=== PATIENT | male | born 1950 | race Caucasian/White ===

== ENCOUNTER 2018-06-27 07:52 | Inpatient (IN) | payer OTHER, SELFPAY ==
[2018-06-27] VITALS (50 sets, daily range): BP systolic 73–167; BP diastolic 34–145; PULSE 78–162; RESP 12–28; TEMP 36–37; O2SAT 88–100; BMI 25.9; BMI 24.3; BMI 24.4
--- NOTE | 2018-06-27 08:05 | ED.RN ---
pt with severe tremors to body and extremities states has been since fall. pt states he blacked out and fell, +LOC. severe pain to ble with bending movment but not roatation. denies any other pain. alert and oriented aprrpriated.
--- NOTE | 2018-06-27 08:12 | ED.VISSUMM ---
- ER Visit Summary Date of Service: 06/27/18 Chief Complaint: I passed out. History of Present Illness: The patient is a 68 M with multiple significant past medical problems presents after syncopal episode. He was walking from the restroom and passed out. He reports no prodrome. He presently complains of chills, shortness of breath, black stool and weakness. Nursing staff informed me that he complains of pain all over. EMS documented a systolic pressure of 100 and pulse ox on room air 82%. EMS report not available at the time of this dictation. Patient denies headache, visual, ocular auditory symptoms. He denies any chest pain or shortness of breath. He denies abdominal pain. He denies any urologic symptoms. He denies any numbness or tingling in his extremities. He denies headache. For review of old records he is on no anticoagulant. There is a past history coronary disease, COPD, GERD, type 2 diabetes, hypertension, hypercholesterolemia and nonrheumatic valvular heart disease. Physical Examination: Patient has chills or tremors. Head is atraumatic normocephalic. There is no clinical findings of basal skull fracture. Pupils equal round reactive. Extra muscle intact. Sclera is anicteric. Conjunctive is pink. Nares patent with no discharge or blood. Septum is not deviated. Posterior pharynx unremarkable. Trachea midline. There is no carotid bruit or stridor. There is no pain the patient cervical spine. He has full active range of motion of his neck. Heart is regular with diastolic murmur consistent with aortic insufficiency. Lungs are clear to auscultation. Fair movement of air bilaterally. Abdomen is soft nontender with no palpable cell mass abdominal bruit. He has pain palpation of the pelvis. There is no shortening of the right or left leg or abnormal positioning or rotation. He is alert and oriented to name, place and year. Motor spiral 5. Sensations intact. DTRs are symmetric. Cranial 2 through 12 are intact. Examination of the lower extremity reveals swelling of his right leg compared to left. He states this is normal. There is no leg vein distention, discoloration, palpable coarseness on the distribution of deep venous system. Rectal exam was performed and stool is brown and not black. Prostate normal size and nontender. Test Results: EKG reveals a sinus rhythm rate of [address]-T wave changes that are new since August 24, 2014. Two-view chest x-ray reveals normal cardiac silhouette and mediastinum. No abnormality of osseous structures. Mild chronic changes of the lung parenchyma. There is no infiltrate, pneumothorax or effusion. White count is normal. Basic metabolic panel is marked for potassium 7.1, CO2 of 14 with an anion gap of 18. BUN is 184 and creatinine is 4.76. Troponin is indeterminate 0.127 and most likely secondary to the renal failure. Emergency Department Course and Treatment: With history of valvular heart disease and coronary disease will obtain EKG and troponin to evaluate for cardiac ischemia. Because of the reported hypoxia and poor waveform here will obtain ABG to determine accuracy of pulse ox reading. CBC was obtained to evaluate for anemia. Electrolytes to evaluate for renal failure or metabolic abnormalities since he reports poor p.o. intake. I was informed by nurse that his heart rate is rapid and irregular. She also states his tremor/shaking is increased. I observed his monitoring he is now in A. fib with RVR rate varying between 12/04/1963. Will obtain EKG to evaluate for acute ischemia. Once EKG has been obtained and reviewed will contact hospitalist since this is new since I spoke to him. Rhythm strips reviewed. What appears to be V. 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 There is also a strep that is consistent with torsades. Magnesium level was ordered and IV magnesium was ordered as push. Case was discussed with Dr. Palafox. He will look up prior records on patient. He agrees emergent dialysis as needed. Nephrology has been paged. [facility] Monitor has been paged as well, Dr. Carlton Whitehead. I was informed by the cathodic protection technician that there was no evidence of DVT. Treatment Plan: With acute renal failure and uremia will need nephrology consultation. He received 1 amp of calcium gluconate, IV bicarb, 1 amp of D50 and 5 units of insulin IV push to treat his hyperkalemia. He did not receive Kayexalate. Disposition: Patient will require admission to PCU stepdown versus ICU. Awaiting results of venous duplex study. If positive with reported hypoxia will presume patient had PE. In light of acute renal failure he is not a candidate for CTA. Impression: 1. Syncope 2. Hyperkalemia 3. Acute renal failure with uremia 4. Elevated troponin suspect secondary to AK I 5. New onset A. fib with RVR 6. Torsades 7. Alan's phenomenon versus V. tach This note was generated with [employer] dictation software. It may contain incorrect words, spelling, and punctuation that were not noted in review of the chart prior to signing ED Disposition - Plan for ED Patient: Chief Complaint: Syncope Referrals: Ziyad Ruvalcaba MD [Primary Care Provider] -
[2018-06-27 08:29] LABS: Hematocrit 39.3 % (40-54); Hemoglobin 13.4 g/dl (13.0-16.5); Mean Corp Hgb Conc 34.1 g/gl (32-36); Mean Corpuscular Hgb 31.6 pg (27.0-32.0); Mean Corpuscular Volume 92.7 fL (80-94); Mean Platelet Vol. 11.9 fl (6.2-12.0); Platelet Count 231 K/mm3 (150-450); RBC Distribution Width CV 13.4 % (11.6-14.6); RBC Distribution Width SD 43.9 fl (35.1-43.9); Red Blood Count 4.24 M/mm3 (4.6-6.2); White Blood Count 10.6 K/mm3 (4.4-11.0)
--- NOTE | 2018-06-27 08:29 | ED.RN ---
pt tremors improving. mild at this time. states i still cant move my legs without extreme pain o2 sat wave form improved able to get accurate o2 sat at this time. color to face improved.
[2018-06-27 08:30] LABS: Scan Indicated on CBC? Y/N NO
[2018-06-27 08:40] LABS: Anion Gap 18 (5-15); BUN 184 mg/dL (7-18); BUN/Creat Ratio 38.7 RATIO (10-20); Calcium,Total 9.5 mg/dL (8.5-10.1); Chloride 112 mmol/L (98-107); Creatinine, Serum 4.76 mg/dL (0.70-1.30); EST Glomerular Filtration Rate 13 mL/min (>60); Est Glom Filt Rate - Afr Amer 16 mL/min (>60); Estimated Creatinine Clearance 15.85 ml/min; Glucose 98 mg/dL (74-106); Potassium 7.1 mmol/L (3.5-5.1); Sodium Level 144 mmol/L (136-145)
[2018-06-27 08:44] LABS: Lactic Acid 1.7 mmol/L (0.4-2.0)
--- NOTE | 2018-06-27 08:51 | ED.RN ---
pt reports pain with movment of arms now. describes same as leg pain.
--- NOTE | 2018-06-27 09:02 | ED.RN ---
called pharmacy for medications.
[2018-06-27 09:16] LABS: Base Excess -17 mmol/L (-2 to +2); Bicarbonate 10.3 mmol/L (22-26); Blood Gas Specimen Type ART; O2 Delivery Device Nasal Can; PO2 187 mmHG (75-100); SITE R Femoral; SO2 100 % (95-99); Time Given 910; Total Carbon Dioxide 11 mmol/L; pCO2 22.5 mmHg (35-45); pH 7.27 (7.35-7.45)
[2018-06-27] MEDS: Sodium Bicarbonate 8.4% 50 ML Syringe 50 MEQ IV (09:28)
[2018-06-27] MEDS: Dextrose 50%-Water 25 GM/50 ML DISP.SYRIN IV (09:28)
--- NOTE | 2018-06-27 09:30 | NURSING ---
DR LOPEZ FOR DR HENSLEY
--- NOTE | 2018-06-27 09:36 | ED.RN ---
pushd medicatoins for elevated K+. pt hr up to 130-150's, inconsistently dropping to 110. monitor allarming a-fib, observation of monitor unclear if from tremors or if pt converted into a-fib. dr levy notified.
--- NOTE | 2018-06-27 09:39 | NURSING ---
SYNCOPE, BLAYNE, HYPERKALEMIA, HX CAD PCU SHELLIE/F[facility]
--- NOTE | 2018-06-27 09:45 | ED.RN ---
pt converted to v-tach. responsive. weak radial pulses. v-fib last lest than 1 min pt reverted back to a-fib. rvr 150's
--- NOTE | 2018-06-27 09:54 | NURSING ---
DR GONZALEZ PAGED DR GONZALEZ RETURNED CALL.
--- NOTE | 2018-06-27 10:02 | NURSING ---
GOING TO ICU INSTEAD
[2018-06-27 10:06] LABS: Magnesium 3.1 mg/dL (1.6-2.6)
--- NOTE | 2018-06-27 10:07 | NURSING ---
CALLED NEPHROLOGY AGAIN TO GET A DR STAT FOR PATIENT. THEY ARE WORKIING ON IT
--- NOTE | 2018-06-27 10:12 | NURSING ---
NEW ROOM ICU 1
--- NOTE | 2018-06-27 10:20 | ED.RN ---
mag just came fro [facility]. transported pt to icu and took med with pt. icu nurse awaer not yet give.
[2018-06-27 10:53] LABS: Partial Thromboplast Time 28.7 Seconds (24.1-36.2); Prothrombin Time (Protime)PT. 13.6 SECONDS (11.7-14.9)
--- NOTE | 2018-06-27 10:55 | PCM.HP.STD ---
Problem List (1) Syncope Status: Acute (2) Atrial fibrillation with RVR Status: Acute (3) Hyperkalemia Status: Acute (4) Acute renal failure Status: Acute (5) Hypertension Status: Chronic (6) Peripheral vascular occlusive disease Status: Chronic (7) Type 2 diabetes mellitus without complications Status: Chronic (8) History of coronary artery stent placement Status: Chronic Comment: Stent X 2 Mid LAD @ [facility] 01/05/2003, (9) Atherosclerosis of coronary artery of [place] heart without angina pectoris Status: Chronic (10) Hyperlipidemia Status: Chronic History of Present Illness Date of Admission: 06/27/18 Chief Complaint: Syncope. The patient is a 68 year old M with past medical history as mentioned above presented to the emergency room because of syncope. According to the patient, this morning patient was standing and he felt dizzy, lightheaded as well as short of breath and he passed out. He thinks that he was out for more than 30 minutes. He has associated symptoms of generalized weakness and bilateral leg pain. He denied chest pain, palpitation. He denied abdominal pain, nausea or vomiting. He reported black tarry stool that has been going on for couple of days. He denies epistaxis, hemoptysis, hematemesis, hematochezia or hematuria. He had a history of CAD status post stents in 2002 and he has been on aspirin, Plavix, statins and beta blockers and he mentioned that he did not think his Plavix for the last couple of days. Has a history of diet-controlled type 2 diabetes mellitus and his most recent hemoglobin A1c available in his chart was from August, and it was 6. He had a history of hypertension and he has been on losartan and metoprolol his blood pressure seems to be under control. Initially in the emergency department, patient was afebrile, heart rate was around 100 and was in sinus rhythm, blood pressure stable and pulse ox was 94% on 4 L. Reportedly, squad mentioned that his pulse ox at home was in the 80s on room air. While in the ER, patient developed new onset A. fib with RVR, heart rate went up to 150s, blood pressure remained stable. His CBC was unremarkable. BMP revealed potassium 7.1, carbon dioxide of 14, BUN of 184 and creatinine 4.76. Lactic acid was normal. Troponin was 0.127. Initial EKG revealed normal sinus rhythm without evidence of cardiac arrhythmias or acute ischemic changes. EKG repeated after he became tachycardic and revealed A. fib with RVR. Chest x-ray showed no acute findings. X-ray of the pelvis because patient complained of pelvic pain and showed no acute fractures. He is being admitted for acute renal failure with uremia requiring emergent hemodialysis, metabolic acidosis, hyperkalemia, new onset A. fib with RVR as well as indeterminate troponin. Past Medical History Past Medical History (Chronic Problems): Chronic Problems (Last Updated 12/20/17 @ 12:08 by Samanta Cabrera) Hypertension (Chronic) Peripheral vascular occlusive disease (Chronic) Type 2 diabetes mellitus without complications (Chronic) Non-rheumatic tricuspid valve insufficiency (Chronic) Nonrheumatic aortic valve insufficiency (Chronic) History of coronary artery stent placement (Chronic ~01/05/03) Stent X 2 Mid LAD @ [facility] 01/05/2003, Atherosclerosis of coronary artery of [place] heart without angina pectoris (Chronic) Hyperlipidemia (Chronic) Medical History: Medical History (Last Updated 12/20/17 @ 12:08 by Samanta Cabrera) Hypertension (Chronic) I10 Peripheral vascular occlusive disease (Chronic) I73.9 Type 2 diabetes mellitus without complications (Chronic) E11.9 Non-rheumatic tricuspid valve insufficiency (Chronic) I36.1 Nonrheumatic aortic valve insufficiency (Chronic) I35.1 Atherosclerosis of coronary artery of [place] heart without angina pectoris (Chronic) I25.10 Hyperlipidemia (Chronic) E78.5 Agent orange exposure Z77.098 COPD (chronic obstructive pulmonary disease) J44.9 Carotid stenosis I65.29 Chronic fatigue disorder R53.82 Esophagitis K20.9 Allergies acetaminophen [From Darvocet-N] Allergy (Unknown, Verified 06/27/18 08:25) Unknown amitriptyline HCl [From Elavil] Allergy (Unknown, Verified 06/27/18 08:25) Unknown atorvastatin calcium [From Lipitor] Allergy (Unknown, Verified 06/27/18 08:25) Unknown azithromycin [From Zithromax] Allergy (Unknown, Verified 06/27/18 08:25) Unknown cefaclor [Cefaclor] Allergy (Unknown, Verified 06/27/18 08:25) Unknown ciprofloxacin [From Cipro] Allergy (Unknown, Verified 06/27/18 08:25) Unknown ciprofloxacin HCl [From Cipro] Allergy (Unknown, Verified 06/27/18 08:25) Unknown hydroxyzine HCl [From Atarax] Allergy (Unknown, Verified 06/27/18 08:25) Unknown influenza virus vaccine, specific [Influenza Virus Vacc,Specific] Allergy (Unknown, Verified 06/27/18 08:25) Unknown iodine Allergy (Unknown, Verified 06/27/18 08:25) Unknown latex Allergy (Unknown, Verified 06/27/18 08:25) Unknown levofloxacin [From Levaquin] Allergy (Unknown, Verified 06/27/18 08:25) Unknown lidocaine Allergy (Unknown, Verified 06/27/18 08:25) Unknown lovastatin Allergy (Unknown, Verified 06/27/18 08:25) Unknown niacin Allergy (Unknown, Verified 06/27/18 08:25) Unknown Penicillins Allergy (Unknown, Verified 06/27/18 08:25) Unknown pneumococcal vaccine [Pneumococcal Vaccine] Allergy (Unknown, Verified 06/27/18 08:25) Unknown propoxyphene napsylate [From Darvocet-N] Allergy (Unknown, Verified 06/27/18 08:25) Unknown quinapril HCl [From Accupril] Allergy (Unknown, Verified 06/27/18 08:25) Unknown red dye Allergy (Unknown, Verified 06/27/18 08:25) Unknown rosuvastatin calcium [From Crestor] Allergy (Unknown, Verified 06/27/18 08:25) Unknown simvastatin Allergy (Unknown, Verified 06/27/18 08:25) Unknown Sulfa (Sulfonamide Antibiotics) Allergy (Unknown, Verified 06/27/18 08:25) Unknown Tetanus Vaccines and Toxoid [Tetanus Vaccines & Toxoid] Allergy (Unknown, Verified 06/27/18 08:25) Unknown tetracycline [Tetracycline] Allergy (Unknown, Verified 06/27/18 08:25) Unknown yellow dye Allergy (Unknown, Verified 06/27/18 08:25) Unknown hydrochlorothiazide Allergy (Verified 06/27/18 08:25) Unknown CREATINE MONOHYDRATE Allergy (Unknown, Uncoded 06/27/18 08:25) Unknown Home Medications: Ambulatory Orders Medication Instructions Recorded Albuterol Inhaler [Ventolin Hfa] 2 puff INHALATION PRN PRN 08/23/14 Aspirin [Aspirin, Baby] 81 mg PO DAILY@0800 10/20/14 Clopidogrel Bisulfate [Plavix] 75 mg PO DAILY 08/23/14 Hydrocodone/Acetaminophen 1 tab PO DAILY 08/23/14 [Hydrocodon-Acetaminophn 10-325] Pravastatin [Pravachol] 40 mg PO QHS 08/23/14 Metoprolol Tartrate [Lopressor 50 mg PO BID 02/17/15 (Beta Bere)] Nitroglycerin [Nitrolingual Pony] 0.4 mg SUBLINGUAL Q5M PRN 02/17/15 Losartan Potassium [Cozaar] 25 mg PO DAILY 08/21/17 Spironolactone [Aldactone] 25 mg PO DAILY 08/21/17 Surgical History: Surgical History (Last Updated 12/20/17 @ 11:56 by Samanta Cabrera) History of coronary artery stent placement (Chronic) Onset Date: ~01/05/03 Z95.5 Stent X 2 Mid LAD @ [facility] 01/05/2003, History of right and left heart catheterization Onset Date: ~02/18/15 Z98.890 Occluded RCA, Patent LAD Stents Surgical History: - - Cardiac stents. Psychiatric History: No pertinent psych hx Lives: Spouse/ Significant Other Smoking Status: Former smoker Alcohol: None Drugs: None - *Family History Maternal Family History: Family History (Last Updated 12/20/17 @ 12:09 by Samanta Cabrera) Father CAD (coronary artery disease) Mother CAD (coronary artery disease) Brother CAD (coronary artery disease) History Items: Heart Disease Paternal Family History: Family History (Last Updated 12/20/17 @ 12:09 by Samanta Cabrera) Father CAD (coronary artery disease) Mother CAD (coronary artery disease) Brother CAD (coronary artery disease) History Items: No pertinent history Review of Systems Constitutional: Reports: Weakness, Fatigue. Denies: Anorexia, Chills, Fever Eyes: Denies: Blurred vision, Double vision, Drainage, Redness HEENT: Denies: Difficulty Hearing, Ear Pain, Eye Pain, Nasal Congestion, Sore Throat Cardiovascular: Reports: Light Headedness, Syncope. Denies: Chest Pain, Chest Pressure, Heaviness, Orthopnea, Palpitations, Paroxysmal Noc. Dyspnea Respiratory: Reports: Shortness of Breath, Shortness of breath at rest. Denies: Cough, Pleuritic Pain, Sputum production, Wheezing Gastrointestinal: Reports: Melena. Denies: Abdominal Pain, Constipation, Diarrhea, Hematemesis, Hematochezia, Nausea, Vomiting Genitourinary: Denies: Dysuria, Frequency, Hematuria Musculoskeletal: Denies: Arm Pain, Back Pain, Foot Pain Skin: Denies: Dryness, Rash Neurological: Denies: Balance problems, Double vision, Change in Speech, Slurred speech, Confusion, Focal weakness, Headaches, Incoordination, Numbness, Tingling Psychiatric: Denies: Anxiety, Depression Endocrine: Denies: Change in Body Habitus, Polydipsia VTE Information - Inpt Only VTE Present on Admission: No VTE Mechan Device Prophylaxis: SCD's VTE Pharm Prophylaxis ordered?: No Patient Problems: Active and Suspected Problems (Last Updated 12/20/17 @ 12:08 by Samanta Cabrera) Syncope (Acute) Atrial fibrillation with RVR (Acute) Hyperkalemia (Acute) Acute renal failure (Acute) - Physical Exam General: Alert, Oriented x3, Cooperative, - - Minimally short of breath. HEENT: Atraumatic, PERRLA, EOMI, Normocephalic Oral: Moist Mucosa, No Gingival or Mucosal Lesions/ Ulcerations Neck: Supple, No JVD, Negative Carotid Bruits, Trachea Midline, Thyroid Normal Size and Texture Lungs: Clear to auscultation, No rhonchi, No wheeze, No rales, Diminished Cardiovascular: Normal S1, Normal S2, No murmurs, PMI Normal, Irregular Rate, Tachycardic Abdomen: Bowel Sounds Present, Soft, Non Tender, Non-Distended, No Hepato-splenomegaly Extremities: No clubbing, No cyanosis, No edema Skin: No rashes, No breakdown Lymphatic: No Cervical, Supraclavicular, or Inguinal Adenopathy Neurological: Cranial nerves II-XII grossly intact, Motor Exam 5/5 strength throughout Psych/Mental Status: Normal Affect, Appropriate, Alert and oriented to time, place, person, mood and affect Vital Signs Temp Pulse Resp BP Pulse Ox 97.2 F L 123 H 16 138/111 H 100 06/27/18 08:20 06/27/18 10:30 06/27/18 10:30 06/27/18 10:30 06/27/18 10:37 Oxygen Flow Rate (L/min) 2 Oxygen Delivery Method Nasal Cannula Weight: 179 lb 10.828 oz Body Mass Index (BMI) 24.3 Laboratory Tests 06/27/18 06/27/18 06/27/18 Range/Units 09:11 08:10 08:10 WBC (4.4-11.0) K/mm3 RBC (4.6-6.2) M/mm3 Hgb (13.0-16.5) g/dl Hct (40-54) % MCV (80-94) fL MCH (27.0-32.0) pg MCHC (32-36) g/gl RDW (11.6-14.6) % RDW Differential (35.1-43.9) fl Plt Count (150-450) K/mm3 MPV (6.2-12.0) fl PT 13.6 (11.7-14.9) SECONDS INR 1.0 APTT 28.7 (24.1-36.2) Seconds Specimen Type ART Sample Site R Femoral pH 7.27 L (7.35-7.45) Bicarbonate Actual 10.3 L (22-26) mmol/L POC Total CO2 11 mmol/L Base Excess -17 L (-2 to +2) mmol/L O2 Saturation 100 H (95-99) % ABG pCO2 22.5 L (35-45) mmHg ABG pO2 187 H (75-100) mmHG Steven Test NA O2 Delivery Device Nasal Can Liter Flow 4.0 /min Blood Gas Notified Whom ED Blood Gas Notified Time 910 Sodium (136-145) mmol/L Potassium (3.5-5.1) mmol/L Chloride (98-107) mmol/L Carbon Dioxide (21.0-32.0) mmol/L Anion Gap (5-15) BUN (7-18) mg/dL Creatinine (0.70-1.30) mg/dL Estim Creat Clear Calc ml/min Est GFR (MDRD) Af Amer (>60) mL/min Est GFR (MDRD) Non-Af (>60) mL/min BUN/Creatinine Ratio (10-20) RATIO Glucose (74-106) mg/dL Lactic Acid (0.4-2.0) mmol/L Calcium (8.5-10.1) mg/dL Magnesium (1.6-2.6) mg/dL Total Creatine Kinase 108 (39-308) U/L Troponin I (<0.045) ng/mL 06/27/18 06/27/18 06/27/18 Range/Units 08:10 08:10 08:10 WBC (4.4-11.0) K/mm3 RBC (4.6-6.2) M/mm3 Hgb (13.0-16.5) g/dl Hct (40-54) % MCV (80-94) fL MCH (27.0-32.0) pg MCHC (32-36) g/gl RDW (11.6-14.6) % RDW Differential (35.1-43.9) fl Plt Count (150-450) K/mm3 MPV (6.2-12.0) fl PT (11.7-14.9) SECONDS INR APTT (24.1-36.2) Seconds Specimen Type Sample Site pH (7.35-7.45) Bicarbonate Actual (22-26) mmol/L POC Total CO2 mmol/L Base Excess (-2 to +2) mmol/L O2 Saturation (95-99) % ABG pCO2 (35-45) mmHg ABG pO2 (75-100) mmHG Steven Test O2 Delivery Device Liter Flow /min Blood Gas Notified Whom Blood Gas Notified Time Sodium 144 (136-145) mmol/L Potassium 7.1 H* (3.5-5.1) mmol/L Chloride 112 H (98-107) mmol/L Carbon Dioxide 14.0 L (21.0-32.0) mmol/L Anion Gap 18 H (5-15) BUN 184 H* (7-18) mg/dL Creatinine 4.76 H (0.70-1.30) mg/dL Estim Creat Clear Calc 15.85 ml/min Est GFR (MDRD) Af Amer 16 L (>60) mL/min Est GFR (MDRD) Non-Af 13 L (>60) mL/min BUN/Creatinine Ratio 38.7 H (10-20) RATIO Glucose 98 (74-106) mg/dL Lactic Acid 1.7 (0.4-2.0) mmol/L Calcium 9.5 (8.5-10.1) mg/dL Magnesium 3.1 H (1.6-2.6) mg/dL Total Creatine Kinase (39-308) U/L Troponin I 0.127 H (<0.045) ng/mL 06/27/18 Range/Units 08:10 WBC 10.6 (4.4-11.0) K/mm3 RBC 4.24 L (4.6-6.2) M/mm3 Hgb 13.4 (13.0-16.5) g/dl Hct 39.3 L (40-54) % MCV 92.7 (80-94) fL MCH 31.6 (27.0-32.0) pg MCHC 34.1 (32-36) g/gl RDW 13.4 (11.6-14.6) % RDW Differential 43.9 (35.1-43.9) fl Plt Count 231 (150-450) K/mm3 MPV 11.9 (6.2-12.0) fl PT (11.7-14.9) SECONDS INR APTT (24.1-36.2) Seconds Specimen Type Sample Site pH (7.35-7.45) Bicarbonate Actual (22-26) mmol/L POC Total CO2 mmol/L Base Excess (-2 to +2) mmol/L O2 Saturation (95-99) % ABG pCO2 (35-45) mmHg ABG pO2 (75-100) mmHG Steven Test O2 Delivery Device Liter Flow /min Blood Gas Notified Whom Blood Gas Notified Time Sodium (136-145) mmol/L Potassium (3.5-5.1) mmol/L Chloride (98-107) mmol/L Carbon Dioxide (21.0-32.0) mmol/L Anion Gap (5-15) BUN (7-18) mg/dL Creatinine (0.70-1.30) mg/dL Estim Creat Clear Calc ml/min Est GFR (MDRD) Af Amer (>60) mL/min Est GFR (MDRD) Non-Af (>60) mL/min BUN/Creatinine Ratio (10-20) RATIO Glucose (74-106) mg/dL Lactic Acid (0.4-2.0) mmol/L Calcium (8.5-10.1) mg/dL Magnesium (1.6-2.6) mg/dL Total Creatine Kinase (39-308) U/L Troponin I (<0.045) ng/mL Clinical Impression(s) from Imaging Studies Chest X-Ray 06/27/18 08:38 IMPRESSION: Hyperinflation. The lungs are clear. Electronically Signed: Blade Myles MD at 9:04 EDT Tel [phone], Service support , Pelvis X-Ray 06/27/18 08:45 IMPRESSION: No fracture is seen. Electronically Signed: Blade Myles MD at 9:03 EDT Tel [phone], Service support , Assessment/Plan All Active Problems (Last Updated 12/20/17 @ 12:08 by Samanta Cabrera) Syncope (Acute) Atrial fibrillation with RVR (Acute) Hyperkalemia (Acute) Acute renal failure (Acute) This is a 68 years old male patient presented to the emergency room because of syncope, found to have acute renal failure complicated by uremia and metabolic acidosis as well as hyperkalemia and while in the ER, he went into A. fib with RVR which is new to him and also found to have borderline elevated troponin. #1 acute renal failure/uremia/metabolic acidosis: This is an acute, patient does not known to have chronic kidney disease. Admission BUN is 184, creatinine is 4.76. Previously, kidney function was normal. Unclear etiology at at this time, could be prerenal secondary to dehydration in addition to medication side effects including losartan and Aldactone. Other etiologies such as obstructive uropathy cannot be ruled out. At this time, patient is A. fib with RVR and he developed some form of cardiac arrhythmia on the EKG, questionable torsades de points. Serum magnesium was given on the higher side. Patient will need emergent hemodialysis. Plan: Admit to ICU, critical care monitoring, cardiac and renal diet, IV fluids for hydration, repeat BMP at 4 PM today, CT scan abdomen and pelvis, ultrasound kidneys, nephrology consult, critical care consult, check serum phosphorus, TSH, PT OT evaluation and treatment. #2 hyperkalemia: Secondary to above. EKG revealed A. fib with RVR, no peaked T waves but he developed some form of cardiac arrhythmias. Plan: Nephrology consult, emergent hemodialysis, check serum phosphorus, repeat BMP this afternoon. #3 new onset A. fib with RVR/cardiac arrhythmia: Initial EKG revealed sinus rhythm. Later, EKG revealed A. fib with RVR. On the monitor strip there was wide complex tachycardia which may be of concern for dissected points, it is not clear. At this time, heart rate has been in the 130s, blood pressure stable. Plan: Emergent hemodialysis, correct electrolytes, TSH, 2D echocardiogram, cardiology consult. #4 borderline elevated troponin: Likely due to acute renal failure in addition to A. fib with RVR or possible underlying CAD. Patient does have history of CAD status post stents. He denied any chest pain. Plan: Cardiac monitoring, serial cardiac enzymes, repeat EKG tomorrow morning, 2D echocardiogram, cardiology consult. #5 syncope: Likely due to all of the above. At this time, blood pressure stable, heart rate has been 130s. Plan as above. #6 melena: Patient reported black stool for the last couple of days. He has been on Plavix as well as aspirin. Plan: Stool for occult blood, pro time and INR, repeat CBC tomorrow morning. #7 CAD status post stents: Plan as above, continue aspirin, Plavix metoprolol and statins, hold losartan #8 hypertension: At this time, blood pressure stable. Plan to continue metoprolol, hold losartan and Aldactone. #9 hyperlipidemia: Continue statins. #10 diet-controlled type 2 diabetes mellitus: Patient is not on any diabetic medications at home. Plan for Accu-Cheks as needed, sliding scale, hemoglobin A1c. #11 DVT prophylaxis: SCDs. #12 CODE STATUS: Full code. This is discussed with the patient by Dr. Whitehead, mesh worker. This note was generated with [employer] dictation software. It may contain incorrect words, spelling, and punctuation that were not noted in checking the note before signing. Code Visit Inpatient E&M: 96430 Init Hosp L3
[2018-06-27 11:07] LABS: CPK Total, Creatine Kinase 108 U/L (39-308)
[2018-06-27] MEDS: 0.9% Normal Saline 1,000 ML 999 ML IV ×2 (11:07→13:00)
--- NOTE | 2018-06-27 11:11 | PCM.CON.CC ---
Problem List (1) Syncope Status: Acute (2) Atrial fibrillation with RVR Status: Acute (3) Hyperkalemia Status: Acute (4) Acute renal failure Status: Acute (5) Hypertension Status: Chronic (6) Peripheral vascular occlusive disease Status: Chronic (7) Type 2 diabetes mellitus without complications Status: Chronic (8) Non-rheumatic tricuspid valve insufficiency Status: Chronic (9) Nonrheumatic aortic valve insufficiency Status: Chronic (10) History of coronary artery stent placement Status: Chronic Comment: Stent X 2 Mid LAD @ [facility] 01/05/2003, (11) Atherosclerosis of coronary artery of [place] heart without angina pectoris Status: Chronic (12) Hyperlipidemia Status: Chronic Reason for Consult Date of Consultation: 06/27/18 Reason for Consultation: Acute renal failure History of Present Illness: The patient is a 68 year old M, with past medical history significant for reported coronary artery disease, COPD, GERD, diet-controlled diabetes mellitus type 2, hypertension, hypercholesterolemia and nonrheumatic valvular disease, who presented to [facility] on 06/27/2018 following a syncopal event. Patient is unclear on total time of unconsciousness, but assumes it may have been 30 minutes or more. Patient had reportedly been walking to the restroom and passed out. Patient reportedly had no prodrome prior to passing out, but has noted some chills, shortness of breath, black stools and weakness over the last 2-3 days. On presentation to the emergency room, patient was noted to be 82% on room air with a systolic blood pressure of approximately 100. Patient reportedly does take Plavix at baseline, but no anticoagulant therapy. Patient denies any NSAID use at baseline. While in the emergency room, patient did have an ABG to confirm oxygenation. Patient was also noted to be in A. fib with RVR, which is reportedly new to the patient. On telemetry, patient was noted to have heart rates between 130 bpm and 160 bpm. There was some concern for torsades, so a magnesium infusion was ordered. Laboratory data showed an elevated BUN of 184 and a creatinine of 4.76. Patient was admitted to the intensive care unit for need of emergent hemodialysis. Patient reports he has had issues with BPH in the past, but is never had renal dysfunction that he is aware of. Patient denies any history of cardiac arrhythmias, but does have coronary artery disease and is on Plavix therapy at baseline. Patient does not report using supplemental oxygen at baseline. Past Medical History Past Medical History (Chronic Problems): Chronic Problems (Last Updated 12/20/17 @ 12:08 by Samanta Cabrera) Hypertension (Chronic) Peripheral vascular occlusive disease (Chronic) Type 2 diabetes mellitus without complications (Chronic) Non-rheumatic tricuspid valve insufficiency (Chronic) Nonrheumatic aortic valve insufficiency (Chronic) History of coronary artery stent placement (Chronic ~01/05/03) Stent X 2 Mid LAD @ [facility] 01/05/2003, Atherosclerosis of coronary artery of [place] without angina pectoris (Chronic) Hyperlipidemia (Chronic) Medical History: Medical History (Last Updated 12/20/17 @ 12:08 by Samanta Cabrera) Hypertension (Chronic) I10 Peripheral vascular occlusive disease (Chronic) I73.9 Type 2 diabetes mellitus without complications (Chronic) E11.9 Non-rheumatic tricuspid valve insufficiency (Chronic) I36.1 Nonrheumatic aortic valve insufficiency (Chronic) I35.1 Atherosclerosis of coronary artery of [place] without angina pectoris (Chronic) I25.10 Hyperlipidemia (Chronic) E78.5 Agent orange exposure Z77.098 COPD (chronic obstructive pulmonary disease) J44.9 Carotid stenosis I65.29 Chronic fatigue disorder R53.82 Esophagitis K20.9 Allergies acetaminophen [From Darvocet-N] Allergy (Unknown, Verified 06/27/18 08:25) Unknown amitriptyline HCl [From Elavil] Allergy (Unknown, Verified 06/27/18 08:25) Unknown atorvastatin calcium [From Lipitor] Allergy (Unknown, Verified 06/27/18 08:25) Unknown azithromycin [From Zithromax] Allergy (Unknown, Verified 06/27/18 08:25) Unknown cefaclor [Cefaclor] Allergy (Unknown, Verified 06/27/18 08:25) Unknown ciprofloxacin [From Cipro] Allergy (Unknown, Verified 06/27/18 08:25) Unknown ciprofloxacin HCl [From Cipro] Allergy (Unknown, Verified 06/27/18 08:25) Unknown hydroxyzine HCl [From Atarax] Allergy (Unknown, Verified 06/27/18 08:25) Unknown influenza virus vaccine, specific [Influenza Virus Vacc,Specific] Allergy (Unknown, Verified 06/27/18 08:25) Unknown iodine Allergy (Unknown, Verified 06/27/18 08:25) Unknown latex Allergy (Unknown, Verified 06/27/18 08:25) Unknown levofloxacin [From Levaquin] Allergy (Unknown, Verified 06/27/18 08:25) Unknown lidocaine Allergy (Unknown, Verified 06/27/18 08:25) Unknown lovastatin Allergy (Unknown, Verified 06/27/18 08:25) Unknown niacin Allergy (Unknown, Verified 06/27/18 08:25) Unknown Penicillins Allergy (Unknown, Verified 06/27/18 08:25) Unknown pneumococcal vaccine [Pneumococcal Vaccine] Allergy (Unknown, Verified 06/27/18 08:25) Unknown propoxyphene napsylate [From Darvocet-N] Allergy (Unknown, Verified 06/27/18 08:25) Unknown quinapril HCl [From Accupril] Allergy (Unknown, Verified 06/27/18 08:25) Unknown red dye Allergy (Unknown, Verified 06/27/18 08:25) Unknown rosuvastatin calcium [From Crestor] Allergy (Unknown, Verified 06/27/18 08:25) Unknown simvastatin Allergy (Unknown, Verified 06/27/18 08:25) Unknown Sulfa (Sulfonamide Antibiotics) Allergy (Unknown, Verified 06/27/18 08:25) Unknown Tetanus Vaccines and Toxoid [Tetanus Vaccines & Toxoid] Allergy (Unknown, Verified 06/27/18 08:25) Unknown tetracycline [Tetracycline] Allergy (Unknown, Verified 06/27/18 08:25) Unknown yellow dye Allergy (Unknown, Verified 06/27/18 08:25) Unknown hydrochlorothiazide Allergy (Verified 06/27/18 08:25) Unknown CREATINE MONOHYDRATE Allergy (Unknown, Uncoded 06/27/18 08:25) Unknown Home Medications: Ambulatory Orders Medication Instructions Recorded Albuterol Inhaler [Ventolin Hfa] 2 puff INHALATION PRN PRN 08/23/14 Aspirin [Aspirin, Baby] 81 mg PO DAILY@0800 08/23/14 Clopidogrel Bisulfate [Plavix] 75 mg PO DAILY 08/23/14 Hydrocodone/Acetaminophen 1 tab PO DAILY 08/23/14 [Hydrocodon-Acetaminophn 10-325] Pravastatin [Pravachol] 40 mg PO QHS 08/23/14 Metoprolol Tartrate [Lopressor 50 mg PO BID 02/17/15 (Beta Bere)] Nitroglycerin [Nitrolingual [place]] 0.4 mg SUBLINGUAL Q5M PRN 02/17/15 Losartan Potassium [Cozaar] 25 mg PO DAILY 08/21/17 Spironolactone [Aldactone] 25 mg PO DAILY 08/21/17 Surgical History: Surgical History (Last Updated 12/20/17 @ 11:56 by Samanta Cabrera) History of coronary artery stent placement (Chronic) Onset Date: ~01/05/03 Z95.5 Stent X 2 Mid LAD @ [facility] 01/05/2003, History of right and left heart catheterization Onset Date: ~02/18/15 Z98.890 Occluded RCA, Patent LAD Stents Surgical History: coronary artery stents Smoking Status: Former smoker - *Family History Maternal Family History: Family History (Last Updated 12/20/17 @ 12:09 by Samanta Cabrera) Father CAD (coronary artery disease) Mother CAD (coronary artery disease) Brother CAD (coronary artery disease) History Items: Heart Disease Paternal Family History: Family History (Last Updated 12/20/17 @ 12:09 by Samanta Cabrera) Father CAD (coronary artery disease) Mother CAD (coronary artery disease) Brother CAD (coronary artery disease) History Items: No pertinent history Review of Systems Comment: See HPI, otherwise negative x10 systems. Patient Problems: Active and Suspected Problems (Last Updated 12/20/17 @ 12:08 by Samanta Cabrera) Syncope (Acute) Atrial fibrillation with RVR (Acute) Hyperkalemia (Acute) Acute renal failure (Acute) Objective: Chest x-ray was personally reviewed and shows no acute infiltrates. Pelvis x-ray shows no fracture. - Physical Exam General: Alert, Oriented x3, Cooperative, No apparent distress, - - Appears stated age. Extremely pale HEENT: Atraumatic, PERRLA, EOMI, Normocephalic, - - No scleral icterus or injection noted. Pale conjunctivae. Oral: No Gingival or Mucosal Lesions/ Ulcerations, Dry Mucosa Neck: Supple, No JVD, No Nodes, Trachea Midline Lungs: No rhonchi, No wheeze, No rales, Diminished, - - Symmetric expansion. No dullness to percussion. Cardiovascular: Normal S1, Normal S2, No murmurs, Irregular Rate, No rub noted, No Gallop, Tachycardic Abdomen: Bowel Sounds Present, Soft, Non Tender, Non-Distended Extremities: No cyanosis, No edema, No Calf Tenderness, Clubbing - Stage I Skin: No rashes, No breakdown Musculoskeletal: No Tenderness to Palpation of Joints or Extremities Lymphatic: No Cervical, Supraclavicular, or Inguinal Adenopathy Neurological: Cranial nerves II-XII grossly intact, Neuro grossly intact, Motor Exam 5/5 strength throughout Psych/Mental Status: Alert and oriented to time, place, person, mood and affect Vital Signs Temp Pulse Resp BP Pulse Ox 36.2 C L 123 H 16 138/111 H 100 06/27/18 08:20 06/27/18 10:30 06/27/18 10:30 06/27/18 10:30 06/27/18 10:37 Oxygen Flow Rate (L/min) 2 Oxygen Delivery Method Nasal Cannula Weight: 81.5 kg Body Mass Index (BMI) 24.3 Laboratory Tests 06/27/18 06/27/18 06/27/18 08:10 08:10 08:10 WBC 10.6 RBC 4.24 L Hgb 13.4 Hct 39.3 L MCV 92.7 MCH 31.6 MCHC 34.1 RDW 13.4 RDW Differential 43.9 Plt Count 231 MPV 11.9 PT INR APTT Specimen Type Sample Site pH Bicarbonate Actual POC Total CO2 Base Excess O2 Saturation ABG pCO2 ABG pO2 Steven Test O2 Delivery Device Liter Flow Blood Gas Notified Whom Blood Gas Notified Time Sodium 144 Potassium 7.1 H* Chloride 112 H Carbon Dioxide 14.0 L Anion Gap 18 H BUN 184 H* Creatinine 4.76 H Estim Creat Clear Calc 15.85 Est GFR (MDRD) Af Amer 16 L Est GFR (MDRD) Non-Af 13 L BUN/Creatinine Ratio 38.7 H Glucose 98 Lactic Acid 1.7 Calcium 9.5 Magnesium Total Creatine Kinase Troponin I 0.127 H 06/27/18 06/27/18 06/27/18 08:10 08:10 08:10 WBC RBC Hgb Hct MCV MCH MCHC RDW RDW Differential Plt Count MPV PT 13.6 INR 1.0 APTT 28.7 Specimen Type Sample Site pH Bicarbonate Actual POC Total CO2 Base Excess O2 Saturation ABG pCO2 ABG pO2 Steven Test O2 Delivery Device Liter Flow Blood Gas Notified Whom Blood Gas Notified Time Sodium Potassium Chloride Carbon Dioxide Anion Gap BUN Creatinine Estim Creat Clear Calc Est GFR (MDRD) Af Amer Est GFR (MDRD) Non-Af BUN/Creatinine Ratio Glucose Lactic Acid Calcium Magnesium 3.1 H Total Creatine Kinase 108 Troponin I 06/27/18 09:11 WBC RBC Hgb Hct MCV MCH MCHC RDW RDW Differential Plt Count MPV PT INR APTT Specimen Type ART Sample Site R Femoral pH 7.27 L Bicarbonate Actual 10.3 L POC Total CO2 11 Base Excess -17 L O2 Saturation 100 H ABG pCO2 22.5 L ABG pO2 187 H Steven Test NA O2 Delivery Device Nasal Can Liter Flow 4.0 Blood Gas Notified Whom ED Blood Gas Notified Time 910 Sodium Potassium Chloride Carbon Dioxide Anion Gap BUN Creatinine Estim Creat Clear Calc Est GFR (MDRD) Af Amer Est GFR (MDRD) Non-Af BUN/Creatinine Ratio Glucose Lactic Acid Calcium Magnesium Total Creatine Kinase Troponin I Clinical Impression(s) from Imaging Studies Chest X-Ray 06/27/18 08:38 IMPRESSION: Hyperinflation. The lungs are clear. Electronically Signed: Blade Myles MD at 9:04 EDT Tel [phone], Service support , Pelvis X-Ray 06/27/18 08:45 IMPRESSION: No fracture is seen. Electronically Signed: Blade Myles MD at 9:03 EDT Tel [phone], Service support , Assessment/Plan Active and Suspected Problems (Last Updated 12/20/17 @ 12:08 by Samanta Cabrera) Syncope (Acute) Atrial fibrillation with RVR (Acute) Hyperkalemia (Acute) Acute renal failure (Acute) RECOMMENDATIONS: 1. Emergent dialysis after line placement 2. H&H every 6 hours 3. Defibrillator pads in place for 24 hours 4. Obtain renal ultrasound 5. Wean oxygen as tolerated 6. Guaiac stool and Protonix twice daily if positive 7. Cycle troponins IMPRESSIONS: 1. Acute renal failure/hyperkalemia Unclear etiology at this time. Patient does have significantly elevated BUN indicating probable GI bleed. Personally discussed with nephrology. Patient will have a dialysis line placed and hemodialysis will be emergently initiated. Continue to monitor for hyperkalemia complications. Patient has received insulin, calcium and glucose. Patient also has a non-anion gap metabolic acidosis, which is likely also secondary to renal failure. Will hold on Kayexalate given hemodialysis is expected in the next hour or so. [facility] is reportedly on no doc call. ER attempted to reach them. Able to talk with Dr. Palomo by phone and is aware of the situation. 2. Probable acute upper GI bleed Patient is reporting 2-3 days of black stools. Patient does take aspirin, but no other NSAIDs are reported. Patient is on Plavix at baseline. Patient reportedly had brown stool in the ER. Will obtain a guaiac of the stool. If positive, PPI twice daily would be indicated initially. Patient would also need evaluation by general surgery for possible EGD. Current hemoglobin is acceptable, but will check H&H's every 6 hours for the next 24 hours. 3. Non-anion gap metabolic acidosis Clinical suspicion for significant acidosis related to acute renal failure. Patient's lactate is within normal limits. Patient does have a slightly elevated anion gap. Patient appears to be tolerating increased respiratory demand well at this time. Will reassess following hemodialysis. 4. A. fib with RVR/coronary artery disease Cardiology has been consulted. Patient reportedly does not have a history of A. fib with RVR, but does have a history of stents. Clinical suspicion for A. fib with RVR secondary to electrolyte abnormalities. Will attempt to address these initially. Patient's blood pressure is marginal. Will attempt electrolyte correction prior to any Cardizem or other rate control options. Patient is on beta-bere at baseline. No anticoagulation secondary to concerns for upper GI bleed. 5. Syncopal event Multiple possible etiologies. Patient is in new onset atrial fibrillation with RVR. Patient did have some questionable torsades in the ER. Patient also has acute renal failure with electrolyte abnormalities. Patient does not have any focal neurologic deficits to suggest a stroke at this time. Cannot exclude a seizure, but patient does not have any bruising or tongue lesions to suggest seizure activity. 6. Acute hypoxic respiratory insufficiency Clinical suspicion for complications of acute renal failure leading to increased oxygen requirements. Will initiate on hemodialysis. Continue supplemental oxygen for now. Patient does have an echocardiogram ordered. Patient with reported history of COPD, but does not use inhaler therapy at home. Will attempt to avoid bronchodilators given patient's A. fib with RVR. 7. Reported BPH/advanced age/hypercholesterolemia/hypertension/diet-controlled diabetes mellitus/PVD Complicates care, management, recovery and prognosis. Will obtain a renal ultrasound to rule out postobstructive process. Sliding scale insulin should be sufficient. Hold Plavix secondary to possible upper GI bleed TIME: 55 minutes critical care time spent addressing patient's acute kidney injury, upper GI bleed, metabolic acidosis, respiratory insufficiency, review of all data and collaboration with care team (10 AM to 12 PM) Code Visit 9xxxx: [id number] Critical care first hour
--- NOTE | 2018-06-27 11:20 | CON.PCM_ITS ---
Problem List (1) Syncope Status: Acute (2) Atrial fibrillation with RVR Status: Acute (3) Hyperkalemia Status: Acute (4) Acute renal failure Status: Acute (5) Hypertension Status: Chronic (6) Peripheral vascular occlusive disease Status: Chronic (7) Type 2 diabetes mellitus without complications Status: Chronic (8) Non-rheumatic tricuspid valve insufficiency Status: Chronic (9) Nonrheumatic aortic valve insufficiency Status: Chronic (10) History of coronary artery stent placement Status: Chronic Comment: Stent X 2 Mid LAD @ [facility] 01/05/2003, (11) Atherosclerosis of coronary artery of [place] without angina pectoris Status: Chronic (12) Hyperlipidemia Status: Chronic Reason for Consult Date of Consultation: 06/27/18 Reason for Consultation: Acute renal failure History of Present Illness: The patient is a 68 year old M, with past medical history significant for reported coronary artery disease, COPD, GERD, diet-controlled diabetes mellitus type 2, hypertension, hypercholesterolemia and nonrheumatic valvular disease, who presented to [facility] on 06/27/2018 following a syncopal event. Patient is unclear on total time of unconsciousness, but assumes it may have been 30 minutes or more. Patient had reportedly been walking to the restroom and passed out. Patient reportedly had no prodrome prior to passing out, but has noted some chills, shortness of breath, black stools and weakness over the last 2-3 days. On presentation to the emergency room, patient was noted to be 82% on room air with a systolic blood pressure of approximately 100. Patient reportedly does take Plavix at baseline, but no anticoagulant therapy. Patient denies any NSAID use at baseline. While in the emergency room, patient did have an ABG to confirm oxygenation. Patient was also noted to be in A. fib with RVR, which is reportedly new to the patient. On telemetry, patient was noted to have heart rates between 130 bpm and 160 bpm. There was some concern for torsades, so a magnesium infusion was ordered. Laboratory data showed an elevated BUN of 184 and a creatinine of 4.76. Patient was admitted to the intensive care unit for need of emergent hemodialysis. Patient reports he has had issues with BPH in the past, but is never had renal dysfunction that he is aware of. Patient denies any history of cardiac arrhythmias, but does have coronary artery disease and is on Plavix therapy at baseline. Patient does not report using supplemental oxygen at baseline. Past Medical History Past Medical History (Chronic Problems): Chronic Problems (Last Updated 12/20/17 @ 12:08 by Samanta Cabrera) Hypertension (Chronic) Peripheral vascular occlusive disease (Chronic) Type 2 diabetes mellitus without complications (Chronic) Non-rheumatic tricuspid valve insufficiency (Chronic) Nonrheumatic aortic valve insufficiency (Chronic) History of coronary artery stent placement (Chronic ~01/05/03) Stent X 2 Mid LAD @ [facility] 01/05/2003, Atherosclerosis of coronary artery of [place] without angina pectoris ( Chronic) Hyperlipidemia (Chronic) Medical History: Medical History (Last Updated 12/20/17 @ 12:08 by Samanta Cabrera) Hypertension (Chronic) I10 Peripheral vascular occlusive disease (Chronic) I73.9 Type 2 diabetes mellitus without complications (Chronic) E11.9 Non-rheumatic tricuspid valve insufficiency (Chronic) I36.1 Nonrheumatic aortic valve insufficiency (Chronic) I35.1 Atherosclerosis of coronary artery of [place] without angina pectoris ( Chronic) I25.10 Hyperlipidemia (Chronic) E78.5 Agent orange exposure Z77.098 COPD (chronic obstructive pulmonary disease) J44.9 Carotid stenosis I65.29 Chronic fatigue disorder R53.82 Esophagitis K20.9 Allergies acetaminophen [From Darvocet-N] Allergy (Unknown, Verified 06/27/18 08:25) Unknown amitriptyline HCl [From Elavil] Allergy (Unknown, Verified 06/27/18 08:25) Unknown atorvastatin calcium [From Lipitor] Allergy (Unknown, Verified 06/27/18 08:25) Unknown azithromycin [From Zithromax] Allergy (Unknown, Verified 06/27/18 08:25) Unknown cefaclor [Cefaclor] Allergy (Unknown, Verified 06/27/18 08:25) Unknown ciprofloxacin [From Cipro] Allergy (Unknown, Verified 06/27/18 08:25) Unknown ciprofloxacin HCl [From Cipro] Allergy (Unknown, Verified 06/27/18 08:25) Unknown hydroxyzine HCl [From Atarax] Allergy (Unknown, Verified 06/27/18 08:25) Unknown influenza virus vaccine, specific [Influenza Virus Vacc,Specific] Allergy ( Unknown, Verified 06/27/18 08:25) Unknown iodine Allergy (Unknown, Verified 06/27/18 08:25) Unknown latex Allergy (Unknown, Verified 06/27/18 08:25) Unknown levofloxacin [From Levaquin] Allergy (Unknown, Verified 06/27/18 08:25) Unknown lidocaine Allergy (Unknown, Verified 06/27/18 08:25) Unknown lovastatin Allergy (Unknown, Verified 06/27/18 08:25) Unknown niacin Allergy (Unknown, Verified 06/27/18 08:25) Unknown Penicillins Allergy (Unknown, Verified 06/27/18 08:25) Unknown pneumococcal vaccine [Pneumococcal Vaccine] Allergy (Unknown, Verified 06/27/18 08:25) Unknown propoxyphene napsylate [From Darvocet-N] Allergy (Unknown, Verified 06/27/18 08: 25) Unknown quinapril HCl [From Accupril] Allergy (Unknown, Verified 06/27/18 08:25) Unknown red dye Allergy (Unknown, Verified 06/27/18 08:25) Unknown rosuvastatin calcium [From Crestor] Allergy (Unknown, Verified 06/27/18 08:25) Unknown simvastatin Allergy (Unknown, Verified 06/27/18 08:25) Unknown Sulfa (Sulfonamide Antibiotics) Allergy (Unknown, Verified 06/27/18 08:25) Unknown Tetanus Vaccines and Toxoid [Tetanus Vaccines & Toxoid] Allergy (Unknown, Verified 06/27/18 08:25) Unknown tetracycline [Tetracycline] Allergy (Unknown, Verified 06/27/18 08:25) Unknown yellow dye Allergy (Unknown, Verified 06/27/18 08:25) Unknown hydrochlorothiazide Allergy (Verified 06/27/18 08:25) Unknown CREATINE MONOHYDRATE Allergy (Unknown, Uncoded 06/27/18 08:25) Unknown Home Medications: Ambulatory Orders Medication Instructions Recorded Albuterol Inhaler [Ventolin Hfa] 2 puff INHALATION PRN PRN 08/23/14 Aspirin [Aspirin, Baby] 81 mg PO DAILY@0800 08/23/14 Clopidogrel Bisulfate [Plavix] 75 mg PO DAILY 08/23/14 Hydrocodone/Acetaminophen 1 tab PO DAILY 08/23/14 [Hydrocodon-Acetaminophn 10-325] Pravastatin [Pravachol] 40 mg PO QHS 08/23/14 Metoprolol Tartrate [Lopressor 50 mg PO BID 02/17/15 (Beta Bere)] Nitroglycerin [Nitrolingual [place]] 0.4 mg SUBLINGUAL Q5M PRN 02/17/15 Losartan Potassium [Cozaar] 25 mg PO DAILY 08/21/17 Spironolactone [Aldactone] 25 mg PO DAILY 08/21/17 Surgical History: Surgical History (Last Updated 12/20/17 @ 11:56 by Samanta Cabrera) History of coronary artery stent placement (Chronic) Onset Date: ~01/05/03 Z95.5 Stent X 2 Mid LAD @ [facility] 01/05/2003, History of right and left heart catheterization Onset Date: ~02/18/15 Z98.890 Occluded RCA, Patent LAD Stents Surgical History: coronary artery stents Smoking Status: Former smoker - *Family History Maternal Family History: Family History (Last Updated 12/20/17 @ 12:09 by Samanta Cabrera) Father CAD (coronary artery disease) Mother CAD (coronary artery disease) Brother CAD (coronary artery disease) History Items: Heart Disease Paternal Family History: Family History (Last Updated 12/20/17 @ 12:09 by Samanta Cabrera) Father CAD (coronary artery disease) Mother CAD (coronary artery disease) Brother CAD (coronary artery disease) History Items: No pertinent history Review of Systems Comment: See HPI, otherwise negative x10 systems. Patient Problems: Active and Suspected Problems (Last Updated 12/20/17 @ 12:08 by Samanta Cabrera) Syncope (Acute) Atrial fibrillation with RVR (Acute) Hyperkalemia (Acute) Acute renal failure (Acute) Objective: Chest x-ray was personally reviewed and shows no acute infiltrates. Pelvis x- ray shows no fracture. - Physical Exam General: Alert, Oriented x3, Cooperative, No apparent distress, - - Appears stated age. Extremely pale HEENT: Atraumatic, PERRLA, EOMI, Normocephalic, - - No scleral icterus or injection noted. Pale conjunctivae. Oral: No Gingival or Mucosal Lesions/ Ulcerations, Dry Mucosa Neck: Supple, No JVD, No Nodes, Trachea Midline Lungs: No rhonchi, No wheeze, No rales, Diminished, - - Symmetric expansion. No dullness to percussion. Cardiovascular: Normal S1, Normal S2, No murmurs, Irregular Rate, No rub noted, No Gallop, Tachycardic Abdomen: Bowel Sounds Present, Soft, Non Tender, Non-Distended Extremities: No cyanosis, No edema, No Calf Tenderness, Clubbing - Stage I Skin: No rashes, No breakdown Musculoskeletal: No Tenderness to Palpation of Joints or Extremities Lymphatic: No Cervical, Supraclavicular, or Inguinal Adenopathy Neurological: Cranial nerves II-XII grossly intact, Neuro grossly intact, Motor Exam 5/5 strength throughout Psych/Mental Status: Alert and oriented to time, place, person, mood and affect Vital Signs Temp Pulse Resp BP Pulse Ox 36.2 C L 123 H 16 138/111 H 100 06/27/18 08:20 06/27/18 10:30 06/27/18 10:30 06/27/18 10:30 06/27/18 10:37 Oxygen Flow Rate (L/min) 2 Oxygen Delivery Method Nasal Cannula Weight: 81.5 kg Body Mass Index (BMI) 24.3 Laboratory Tests 06/27/18 06/27/18 06/27/18 08:10 08:10 08:10 WBC 10.6 RBC 4.24 L Hgb 13.4 Hct 39.3 L MCV 92.7 MCH 31.6 MCHC 34.1 RDW 13.4 RDW Differential 43.9 Plt Count 231 MPV 11.9 PT INR APTT Specimen Type Sample Site pH Bicarbonate Actual POC Total CO2 Base Excess O2 Saturation ABG pCO2 ABG pO2 Steven Test O2 Delivery Device Liter Flow Blood Gas Notified Whom Blood Gas Notified Time Sodium 144 Potassium 7.1 H* Chloride 112 H Carbon Dioxide 14.0 L Anion Gap 18 H BUN 184 H* Creatinine 4.76 H Estim Creat Clear Calc 15.85 Est GFR (MDRD) Af Amer 16 L Est GFR (MDRD) Non-Af 13 L BUN/Creatinine Ratio 38.7 H Glucose 98 Lactic Acid 1.7 Calcium 9.5 Magnesium Total Creatine Kinase Troponin I 0.127 H 06/27/18 06/27/18 06/27/18 08:10 08:10 08:10 WBC RBC Hgb Hct MCV MCH MCHC RDW RDW Differential Plt Count MPV PT 13.6 INR 1.0 APTT 28.7 Specimen Type Sample Site pH Bicarbonate Actual POC Total CO2 Base Excess O2 Saturation ABG pCO2 ABG pO2 Steven Test O2 Delivery Device Liter Flow Blood Gas Notified Whom Blood Gas Notified Time Sodium Potassium Chloride Carbon Dioxide Anion Gap BUN Creatinine Estim Creat Clear Calc Est GFR (MDRD) Af Amer Est GFR (MDRD) Non-Af BUN/Creatinine Ratio Glucose Lactic Acid Calcium Magnesium 3.1 H Total Creatine Kinase 108 Troponin I 06/27/18 09:11 WBC RBC Hgb Hct MCV MCH MCHC RDW RDW Differential Plt Count MPV PT INR APTT Specimen Type ART Sample Site R Femoral pH 7.27 L Bicarbonate Actual 10.3 L POC Total CO2 11 Base Excess -17 L O2 Saturation 100 H ABG pCO2 22.5 L ABG pO2 187 H Steven Test NA O2 Delivery Device Nasal Can Liter Flow 4.0 Blood Gas Notified Whom ED Blood Gas Notified Time 910 Sodium Potassium Chloride Carbon Dioxide Anion Gap BUN Creatinine Estim Creat Clear Calc Est GFR (MDRD) Af Amer Est GFR (MDRD) Non-Af BUN/Creatinine Ratio Glucose Lactic Acid Calcium Magnesium Total Creatine Kinase Troponin I Clinical Impression(s) from Imaging Studies Chest X-Ray 06/27/18 08:38 IMPRESSION: Hyperinflation. The lungs are clear. Electronically Signed: Blade Myles MD at 9:04 EDT Tel [phone], Service support , Pelvis X-Ray 06/27/18 08:45 IMPRESSION: No fracture is seen. Electronically Signed: Blade Myles MD at 9:03 EDT Tel [phone], Service support , Assessment/Plan Active and Suspected Problems (Last Updated 12/20/17 @ 12:08 by Samanta Cabrera) Syncope (Acute) Atrial fibrillation with RVR (Acute) Hyperkalemia (Acute) Acute renal failure (Acute) RECOMMENDATIONS: 1. Emergent dialysis after line placement 2. H&H every 6 hours 3. Defibrillator pads in place for 24 hours 4. Obtain renal ultrasound 5. Wean oxygen as tolerated 6. Guaiac stool and Protonix twice daily if positive 7. Cycle troponins IMPRESSIONS: 1. Acute renal failure/hyperkalemia Unclear etiology at this time. Patient does have significantly elevated BUN indicating probable GI bleed. Personally discussed with nephrology. Patient will have a dialysis line placed and hemodialysis will be emergently initiated. Continue to monitor for hyperkalemia complications. Patient has received insulin, calcium and glucose. Patient also has a non-anion gap metabolic acidosis, which is likely also secondary to renal failure. Will hold on Kayexalate given hemodialysis is expected in the next hour or so. [facility] is reportedly on no doc call. ER attempted to reach them. Able to talk with Dr. Palomo by phone and is aware of the situation. 2. Probable acute upper GI bleed Patient is reporting 2-3 days of black stools. Patient does take aspirin , but no other NSAIDs are reported. Patient is on Plavix at baseline. Patient reportedly had brown stool in the ER. Will obtain a guaiac of the stool. If positive, PPI twice daily would be indicated initially. Patient would also need evaluation by general surgery for possible EGD. Current hemoglobin is acceptable, but will check H&H's every 6 hours for the next 24 hours. 3. Non-anion gap metabolic acidosis Clinical suspicion for significant acidosis related to acute renal failure. Patient's lactate is within normal limits. Patient does have a slightly elevated anion gap. Patient appears to be tolerating increased respiratory demand well at this time. Will reassess following hemodialysis. 4. A. fib with RVR/coronary artery disease Cardiology has been consulted. Patient reportedly does not have a history of A. fib with RVR, but does have a history of stents. Clinical suspicion for A. fib with RVR secondary to electrolyte abnormalities. Will attempt to address these initially. Patient's blood pressure is marginal. Will attempt electrolyte correction prior to any Cardizem or other rate control options. Patient is on beta-bere at baseline. No anticoagulation secondary to concerns for upper GI bleed. 5. Syncopal event Multiple possible etiologies. Patient is in new onset atrial fibrillation with RVR. Patient did have some questionable torsades in the ER. Patient also has acute renal failure with electrolyte abnormalities. Patient does not have any focal neurologic deficits to suggest a stroke at this time. Cannot exclude a seizure, but patient does not have any bruising or tongue lesions to suggest seizure activity. 6. Acute hypoxic respiratory insufficiency Clinical suspicion for complications of acute renal failure leading to increased oxygen requirements. Will initiate on hemodialysis. Continue supplemental oxygen for now. Patient does have an echocardiogram ordered. Patient with reported history of COPD, but does not use inhaler therapy at home. Will attempt to avoid bronchodilators given patient's A. fib with RVR. 7. Reported BPH/advanced age/hypercholesterolemia/hypertension/diet- controlled diabetes mellitus/PVD Complicates care, management, recovery and prognosis. Will obtain a renal ultrasound to rule out postobstructive process. Sliding scale insulin should be sufficient. Hold Plavix secondary to possible upper GI bleed TIME: 55 minutes critical care time spent addressing patient's acute kidney injury , upper GI bleed, metabolic acidosis, respiratory insufficiency, review of all data and collaboration with care team (10 AM to 12 PM) Code Visit [id number]: [id number] Critical care first hour
[2018-06-27 11:29] LABS: Phosphorus 6.2 mg/dL (2.5-4.9)
[2018-06-27 12:13] LABS: Hemoglobin 11.9 g/dl (13.0-16.5)
[2018-06-27] MEDS: 0.9% Normal Saline 1,000 ML 150 ML IV ×2 (12:30→20:10)
--- NOTE | 2018-06-27 12:33 | NURSING ---
Marie CARTY at bedside for HD line insertion
[2018-06-27] MEDS: DiphenhydrAMINE 50 MG/ML Syringe 25 MG IV ×2 (12:35→14:50)
[2018-06-27] MEDS: 0.9% NaCl Peripheral Flush Adult/Peds IV ×2 (12:38→20:10)
[2018-06-27 12:41] LABS: Hemoglobin A1c 5.6 % (4.2-6.3)
[2018-06-27 12:42] LABS: Thyroid Stim Hormone (TSH) 1.21 uIU/mL (0.358-3.74)
[2018-06-27 13:22] LABS: Bacteria 0 SEEN /hpf (None Seen); Mucous, Urine 0 SEEN /hpf (<or=2+); White Blood Cells 0 SEEN /hpf (0-5)
[2018-06-27 13:29] LABS: Color, Urine Yellow (Yellow); Glucose, Dipstick Normal (Normal); Ketone-Dipstick 5 mg/dl (Negative); Leukocyte Esterase-Dipstick Negative /ul (Negative); Nitrite-Dipstick Negative (Negative); Occult Blood-Urine 10 /ul (Negative); Protein-Dipstick 15 mg/dl (Negative); Specific Gravity, Urine 1.015 (1.002-1.030); Urine Bilirubin Dipstick Negative (Negative); Urine Clarity Clear (Clear); Urine Urobilinogen Normal (Normal)
[2018-06-27 13:43] LABS: Red Blood Cells-Urine 0-5 SEEN /hpf (0-5)
[2018-06-27 13:44] LABS: Hyaline Cast 0-5 SEEN /lpf (0-5); Squamous Epithelial Cells - UA 0-5 SEEN /hpf (0-5)
[2018-06-27 13:47] LABS: M R Staph aureus DNA By PCR Negative (Negative); Probe Check PASS; Specimen Processing Control PASS
--- NOTE | 2018-06-27 14:10 | NURSING ---
Echo in progress
--- NOTE | 2018-06-27 14:32 | PCM.CONS.C ---
Problem List (1) Atrial fibrillation with RVR Status: Acute (2) Hyperkalemia Status: Acute (3) Hypertension Status: Chronic (4) History of coronary artery stent placement Status: Chronic Comment: Stent X 2 Mid LAD @ [facility] 01/05/2003, (5) Atherosclerosis of coronary artery of [place] heart without angina pectoris Status: Chronic (6) Hyperlipidemia Status: Chronic Reason for Consult Date of Consultation: 06/27/18 Reason for Consultation: Coronary artery disease, hypertension, hypercholesterolemia, acute renal failure, atrial fibrillation History of Present Illness: The patient is a 68 year old M, patient of Dr. Martinez, with a history of hypertension, hypercholesterolemia, coronary artery disease status post stents x2 to the mid LAD in 2002 at [facility]. He has a known history of carotid artery disease and his last ultrasound to my knowledge was 10/24/15 which demonstrated greater than 70% stenosis in his left internal carotid and moderate 50-69% stenosis in his right internal carotid. Patient sees Dr. Teto Millan for this. Patient's most recent echocardiogram to my knowledge was 02/18/15 which demonstrated an ejection fraction of 65%, mild MR, mild aortic stenosis. He had a repeat catheterization dated 02/18/15 which demonstrated an occluded right coronary artery, adequate left right collaterals, possibly significant mid LAD stenosis at a tortuous juncture of the mid LAD, widely patent stents in the midportion of the LAD, 70% stenosis in a small obtuse marginal #3 branch which did not appear to be significant enough or amenable to PCI and normal LV function with elevated EDP and normal right-sided pressures. He also was found to have moderately centrally directed aortic insufficiency by aortic angiogram. As best I can tell the patient began deteriorating approximately 2 weeks ago and is gotten worse over the last 3 days. Patient reported fatigue, shortness of breath, which culminated into decreased urine output over the last 3 days. When his symptoms did not improve, he sought medical attention at [facility] ER where he was found to have sinus tachycardia alternating with atrial fibrillation with rapid ventricular response. In addition he was found to be hypotensive, and acute renal failure with a BUN and creatinine of 184 and 4.7 respectively. He was also found to be hyperkalemic with a potassium of 7.1. His initial troponin was 0.129 and decreased to 0.127. The patient denies his palpitations, and denies any chest pain, angina but does complain of weakness and shortness of breath. He cannot detect when he is in atrial fibrillation. He is on aspirin and Plavix but no anticoagulation therapy. Of note as well the patient has had a history of falls in the past, culminating in a massive head trauma in July 2016 after falling off a ladder. Patient has had several times for placement of a central line catheter for urgent hemodialysis without success given his dehydration. The patient is currently undergoing rehydration with IV therapy in order to place his Cam catheter. [] Past Medical History Allergies/Adverse Reactions: Allergies acetaminophen [From Darvocet-N] Allergy (Unknown, Verified 06/27/18 08:25) Unknown amitriptyline HCl [From Elavil] Allergy (Unknown, Verified 06/27/18 08:25) Unknown atorvastatin calcium [From Lipitor] Allergy (Unknown, Verified 06/27/18 08:25) Unknown azithromycin [From Zithromax] Allergy (Unknown, Verified 06/27/18 08:25) Unknown cefaclor [Cefaclor] Allergy (Unknown, Verified 06/27/18 08:25) Unknown ciprofloxacin [From Cipro] Allergy (Unknown, Verified 06/27/18 08:25) Unknown ciprofloxacin HCl [From Cipro] Allergy (Unknown, Verified 06/27/18 08:25) Unknown hydroxyzine HCl [From Atarax] Allergy (Unknown, Verified 06/27/18 08:25) Unknown influenza virus vaccine, specific [Influenza Virus Vacc,Specific] Allergy (Unknown, Verified 06/27/18 08:25) Unknown iodine Allergy (Unknown, Verified 06/27/18 08:25) Unknown latex Allergy (Unknown, Verified 06/27/18 08:25) Unknown levofloxacin [From Levaquin] Allergy (Unknown, Verified 06/27/18 08:25) Unknown lidocaine Allergy (Unknown, Verified 06/27/18 08:25) Unknown lovastatin Allergy (Unknown, Verified 06/27/18 08:25) Unknown niacin Allergy (Unknown, Verified 06/27/18 08:25) Unknown Penicillins Allergy (Unknown, Verified 06/27/18 08:25) Unknown pneumococcal vaccine [Pneumococcal Vaccine] Allergy (Unknown, Verified 06/27/18 08:25) Unknown propoxyphene napsylate [From Darvocet-N] Allergy (Unknown, Verified 06/27/18 08:25) Unknown quinapril HCl [From Accupril] Allergy (Unknown, Verified 06/27/18 08:25) Unknown red dye Allergy (Unknown, Verified 06/27/18 08:25) Unknown rosuvastatin calcium [From Crestor] Allergy (Unknown, Verified 06/27/18 08:25) Unknown simvastatin Allergy (Unknown, Verified 06/27/18 08:25) Unknown Sulfa (Sulfonamide Antibiotics) Allergy (Unknown, Verified 06/27/18 08:25) Unknown Tetanus Vaccines and Toxoid [Tetanus Vaccines & Toxoid] Allergy (Unknown, Verified 06/27/18 08:25) Unknown tetracycline [Tetracycline] Allergy (Unknown, Verified 06/27/18 08:25) Unknown yellow dye Allergy (Unknown, Verified 06/27/18 08:25) Unknown hydrochlorothiazide Allergy (Verified 06/27/18 08:25) Unknown CREATINE MONOHYDRATE Allergy (Unknown, Uncoded 06/27/18 08:25) Unknown Home Medications: Ambulatory Orders Medication Instructions Recorded Albuterol Inhaler [Ventolin Hfa] 2 puff INHALATION PRN PRN 08/23/14 Aspirin [Aspirin, Baby] 81 mg PO DAILY@0800 08/23/14 Clopidogrel Bisulfate [Plavix] 75 mg PO DAILY 08/23/14 Hydrocodone/Acetaminophen 1 tab PO DAILY 08/23/14 [Hydrocodon-Acetaminophn 10-325] Pravastatin [Pravachol] 40 mg PO QHS 08/23/14 Metoprolol Tartrate [Lopressor 50 mg PO BID 02/17/15 (Beta Bere)] Nitroglycerin [Nitrolingual [place]] 0.4 mg SUBLINGUAL Q5M PRN 02/17/15 Losartan Potassium [Cozaar] 25 mg PO DAILY 08/21/17 Spironolactone [Aldactone] 25 mg PO DAILY 08/21/17 Past Medical History (Chronic Problems): Chronic Problems (Last Updated 12/20/17 @ 12:08 by Samanta Cabrera) Hypertension (Chronic) Peripheral vascular occlusive disease (Chronic) Type 2 diabetes mellitus without complications (Chronic) Non-rheumatic tricuspid valve insufficiency (Chronic) Nonrheumatic aortic valve insufficiency (Chronic) History of coronary artery stent placement (Chronic ~01/05/03) Stent X 2 Mid LAD @ [facility] 01/05/2003, Atherosclerosis of coronary artery of [place] heart without angina pectoris (Chronic) Hyperlipidemia (Chronic) Surgical History: coronary artery stents - *Family History Paternal Family History: Family History (Last Updated 12/20/17 @ 12:09 by Smaanta Cabrera) Father CAD (coronary artery disease) Mother CAD (coronary artery disease) Brother CAD (coronary artery disease) History Items: No pertinent history Maternal Family History: Family History (Last Updated 12/20/17 @ 12:09 by Samanta Cabrera) Father CAD (coronary artery disease) Mother CAD (coronary artery disease) Brother CAD (coronary artery disease) History Items: Heart Disease Lives: Spouse/ Significant Other Smoking Status: Former smoker Alcohol: None Drugs: None Review of Systems - Review of Systems General: Reports: Fatigue, Normal Appetite, Decreased Appetite, Anorexia, Weight Loss. Denies: Fever, Night Sweats Cardiovascular: Reports: Shortness of Breath, Shortness of Breath with Exertion. Denies: Chest Discomfort, Orthopnea, PND, Peripheral Edema, Palpitations, Lightheadedness, Dizziness, Near Syncope, Syncope Respiratory: Denies: Cough, Sputum Production, Hemoptysis Gastrointestinal: Denies: Hematemesis, Hematochezia, Melena Genitourinary: Denies: Dysuria, Hematuria Skin: Denies: Rash Subjectve: Patient laying in bed, appears to be somewhat fatigued, answers questions appropriately. Denies any chest pain. IV fluids infusing. Objective: Vital Signs Temp Pulse Resp BP Pulse Ox 96.8 F L 139 H 18 97/65 96 06/27/18 14:17 06/27/18 14:17 06/27/18 14:17 06/27/18 14:17 06/27/18 14:17 Oxygen Flow Rate (L/min) 2 Oxygen Delivery Method Nasal Cannula Weight: 179 lb 10.828 oz Body Mass Index (BMI) 24.3 General: Awake, Alert, Oriented x 3, No Acute Distress, Ill Appearing HEENT: PERRL, EOMI, Sclera Non Icteric Neck: Supple, Good ROM, No Lymph Node Enlargement Lungs: Clear to auscultation Cardiovascular: Irregular Rhythm, Normal S1, No Rubs, No Gallops Murmur Murmur: Grade 2/6, Early Diastolic Vascular: No Carotid Bruits, Normal Femoral Pulses, Normal Radial Pulses, Normal Dorsalis Pedal Pulse, Normal Posterior Tibial Pulses Abdomen: Bowel Sounds Present, Soft, Non Tender, No HSM, No Organomegaly Extremities: No Cyanosis, No Clubbing, No edema Neurological: No Focal Motor or Sensory Deficit 06/27/18 12:00: Hemoglobin A1c 5.6 06/27/18 12:00: Hgb 11.9 L, Hct 35.0 L 06/27/18 12:00: Troponin I 0.129 H 06/27/18 13:15: Urine Color Yellow, Urine Clarity Clear, Urine pH 5.0, Ur Specific [place] 1.015, Urine Protein 15 H, Urine Glucose (UA) Normal, Urine Ketones 5 H, Urine Occult Blood 10 H, Urine Nitrite Negative, Urine Bilirubin Negative, Urine Urobilinogen Normal, Ur Leukocyte Esterase Negative, Urine RBC 0-5 SEEN, Urine WBC 0 SEEN Rhythm: EKG: Sinus tachycardia, nonspecific anterolateral ST segment changes. Previous to that the patient had atrial fibrillation with rapid ventricular response and nonspecific anterolateral ST segment changes. ECHO: Pending Stress Test: Cardiac Cath: PCI: CT Surgery: Holter monitor: EPS: PPM: CXR: Chest CT Scan: Assessment/Plan 1. Coronary artery disease: Patient has no anginal symptoms at this time despite his tachycardia and his abnormal troponin. Patient has acute renal failure at this time and requires urgent hemodialysis for both hyperkalemia, and decreased urine output. Would not recommend pursuing catheterization at this time. He has known coronary disease with stents to his LAD. Would recommend and consider a noninvasive stress test once his acute event has resolved. Only if the patient has evidence of anterior ischemia would I consider repeat catheterization. In the meantime we will continue baby aspirin and Plavix as his hemoglobin and platelets are appropriate. Would not consider Lovenox given his acute renal failure. Patient has no chest pain at this time. Would hold off on IV heparin in light of his pending central line catheter for urgent hemodialysis. 2. Acute renal failure: Would recommend holding his spironolactone as well as his lisinopril. Hemodialysis pending. 3. Atrial fibrillation: The patient has evidence of atrial fibrillation superimposed upon hyperkalemia. Hopefully once his potassium has normalized his atrial fibrillation will improve. He is too hypotensive for beta-bere therapy at this time. Should the patient require heart rate control would consider IV amiodarone without a bolus. Would not recommend anticoagulation given the patient's history of falls and head trauma in July 2016. 4. Hyperlipidemia: We will obtain fasting lipid profile. Hold on Pravachol for now. 5. Discussed with Dr. Whitehead. Thank you very much for the opportunity to participate in the cardiac care of your patient. Consultation time between 2 PM and 2:47 PM. Code Visit Inpatient E&M: 11498 Init Hosp L3
--- NOTE | 2018-06-27 14:49 | NURSING ---
Marie [employer] at bedside again for femoral HD catheter insertion attempt
--- NOTE | 2018-06-27 15:19 | NURSING ---
HD in place; HD treatment started per Ramona LANGE
--- NOTE | 2018-06-27 15:22 | PCM.OP.BLANK ---
Operative Report Date of Procedure: 06/27/18 - Dialysis catheter insertion Temporary dialysis catheter placement procedure note Indication: Hemodialysis Procedure: A time-out was completed to verify correct patient, indication, medication allergies, procedure, coagulation studies, informed consent signed, and equipment needed. The patient was placed in the supine position for a central line placement to the rt IJ vein. The patients rt neck was prepped using chlorhexidine and a full body sterile drape was applied. Subcutaneous Benadryl was used to anesthetize the surrounding skin. Unsuccessful at cannulating the vein at the IJ site. Prepared right groin for a femoral line placement. Same sterile technique used to prepare the site, including draping. Sub-continues Benadryl used to anesthetize the site. A 12fr 20 cm temporary dialysis catheter introduced into the internal right common femoral vein using the modified Seldinger technique with the assistance of ultrasound. Site was dilated twice in a stepwise fashion. The catheter was threaded smoothly over the guidewire, the guidewire was removed easily, nonpulsatile blood returned. All ports were aspirated of air and flushed with sterile saline. The catheter was sutured in place and covered with an occlusive dressing impregnated with chlorhexidine. Post-procedure: The patient tolerated the procedure well. Vital signs remained stable. EBL 10 cc. No complications. Chest x-ray ordered to rule out pneumothorax from the IJ procedure, confirmed no pneumothorax. Femoral line is ready for use. Code Visit Procedures: [id number] Insert Non-tunnel CV Cath
[2018-06-27 15:26] LABS: Hematocrit 34.6 % (40-54); Hemoglobin 11.6 g/dl (13.0-16.5)
--- NOTE | 2018-06-27 15:31 | PCM.CONS.R ---
Consultation - Renal 06/27/18 PCP/ Referring MD: Requesting physician: Dr. Whitehead Primary care physician: Ziyad Ruvalcaba MD - History of Present Illness History of Present Illness: The patient is a 68 year old M with past history of CAD (s/p PCI), HTN, HPL, T2DM, GERD, and COPD. The pt presents with a 3 weeks history of progressive weakness. The pt s/p syncopal episode this am. Unclear how long the pt was passed out for. The pt is found to have new onset atrial fib with RVR. He was also found to have SCr of 4.76 mg/dL. K is 7.1. The most recent SCr prior to this admit was from August 2017 at 1.03 mg/dL. The pt denies CP, SOB at rest. He has occasional nausea but no vomiting. There is no edema. The pt does complain of incomplete emptying of the bladder. He also has progressively weak urinary stream in the past 6 months. No fever, chill or dysuria. Pt also reported 2-3 days of melena prior to admit as well. - Allergies Allergies: Allergies acetaminophen [From Darvocet-N] Allergy (Unknown, Verified 06/27/18 08:25) Unknown amitriptyline HCl [From Elavil] Allergy (Unknown, Verified 06/27/18 08:25) Unknown atorvastatin calcium [From Lipitor] Allergy (Unknown, Verified 06/27/18 08:25) Unknown azithromycin [From Zithromax] Allergy (Unknown, Verified 06/27/18 08:25) Unknown cefaclor [Cefaclor] Allergy (Unknown, Verified 06/27/18 08:25) Unknown ciprofloxacin [From Cipro] Allergy (Unknown, Verified 06/27/18 08:25) Unknown ciprofloxacin HCl [From Cipro] Allergy (Unknown, Verified 06/27/18 08:25) Unknown hydroxyzine HCl [From Atarax] Allergy (Unknown, Verified 06/27/18 08:25) Unknown influenza virus vaccine, specific [Influenza Virus Vacc,Specific] Allergy (Unknown, Verified 06/27/18 08:25) Unknown iodine Allergy (Unknown, Verified 06/27/18 08:25) Unknown latex Allergy (Unknown, Verified 06/27/18 08:25) Unknown levofloxacin [From Levaquin] Allergy (Unknown, Verified 06/27/18 08:25) Unknown lidocaine Allergy (Unknown, Verified 06/27/18 08:25) Unknown lovastatin Allergy (Unknown, Verified 06/27/18 08:25) Unknown niacin Allergy (Unknown, Verified 06/27/18 08:25) Unknown Penicillins Allergy (Unknown, Verified 06/27/18 08:25) Unknown pneumococcal vaccine [Pneumococcal Vaccine] Allergy (Unknown, Verified 06/27/18 08:25) Unknown propoxyphene napsylate [From Darvocet-N] Allergy (Unknown, Verified 06/27/18 08:25) Unknown quinapril HCl [From Accupril] Allergy (Unknown, Verified 06/27/18 08:25) Unknown red dye Allergy (Unknown, Verified 06/27/18 08:25) Unknown rosuvastatin calcium [From Crestor] Allergy (Unknown, Verified 06/27/18 08:25) Unknown simvastatin Allergy (Unknown, Verified 06/27/18 08:25) Unknown Sulfa (Sulfonamide Antibiotics) Allergy (Unknown, Verified 06/27/18 08:25) Unknown Tetanus Vaccines and Toxoid [Tetanus Vaccines & Toxoid] Allergy (Unknown, Verified 06/27/18 08:25) Unknown tetracycline [Tetracycline] Allergy (Unknown, Verified 06/27/18 08:25) Unknown yellow dye Allergy (Unknown, Verified 06/27/18 08:25) Unknown hydrochlorothiazide Allergy (Verified 06/27/18 08:25) Unknown CREATINE MONOHYDRATE Allergy (Unknown, Uncoded 06/27/18 08:25) Unknown - Current Medications Current Medications: Current Medications Acetaminophen (Tylenol) 650 mg PO Q6H PRN PRN PRN Reason: Fever, headache, pain Albuterol Sulfate (Ventolin Aerosols) 2.5 mg INHALATION Q4H PRN PRN PRN Reason: Shortness of breath, wheezing Sodium Chloride () 1,000 mls @ 150 mls/hr IV .Q6H40M [facility] Last Admin: 06/27/18 12:33 Dose: Not Given Pantoprazole Sodium 40 mg/ (Sodium Chloride) 110 mls @ 330 mls/hr IV Q12 [facility] Last Admin: 06/27/18 14:14 Dose: 330 mls/hr Insulin Human Lispro (Humalog Kwikpen (Bkc)) 0 unit SC ACHS [facility] PRN Reason: Protocol Magnesium Hydroxide (Milk Of Magnesia) 30 ml PO DAILY PRN PRN Reason: Constipation Ondansetron HCl (Zofran) 4 mg IV Q6H PRN PRN PRN Reason: NAUSEA/VOMITING Sodium Chloride () 5 - 30 ml IV UD PRN PRN Reason: SALINE FLUSH Last Admin: 06/27/18 12:38 Dose: 20 ml - Past Medical History Past Medical History (Chronic Problems): Chronic Problems (Last Updated 12/20/17 @ 12:08 by Samanta Cabrera) Hypertension (Chronic) Peripheral vascular occlusive disease (Chronic) Type 2 diabetes mellitus without complications (Chronic) Non-rheumatic tricuspid valve insufficiency (Chronic) Nonrheumatic aortic valve insufficiency (Chronic) History of coronary artery stent placement (Chronic ~01/05/03) Stent X 2 Mid LAD @ [facility] 01/05/2003, Atherosclerosis of coronary artery of [place] heart without angina pectoris (Chronic) Hyperlipidemia (Chronic) - Past Surgical History Surgical History: coronary artery stents - Social History Smoking Status: Former smoker Alcohol: None Drugs: None - Family History Paternal Family History: Family History (Last Updated 12/20/17 @ 12:09 by Samanta Cabrera) Father CAD (coronary artery disease) Mother CAD (coronary artery disease) Brother CAD (coronary artery disease) History Items: No pertinent history Maternal Family History: Family History (Last Updated 12/20/17 @ 12:09 by Samanta Cabrera) Father CAD (coronary artery disease) Mother CAD (coronary artery disease) Brother CAD (coronary artery disease) History Items: Heart Disease Review of Systems Constitutional: Reports: Malaise, Weakness. Denies: Anorexia, Chills, Fever Eyes: Denies: Blurred vision, Cataracts, Pain, Redness HEENT: Denies: Head Aches, Sinus Congestion, Sinus Drainage Cardiovascular: Reports: Light Headedness, Palpitations, Syncope. Denies: Chest Pain, Chest Pressure, Chest Tightness, Edema Respiratory: Reports: Shortness of breath upon exertion. Denies: Cough, Hemoptysis, Pleuritic Pain, Sputum production Gastrointestinal: Denies: Abdominal Pain, Nausea, Vomiting Genitourinary: Reports: Hesitancy. Denies: Dysuria, Hematuria Musculoskeletal: Denies: Joint Pain, Joint Tenderness Skin: Denies: Rash, Wounds Psychiatric: Denies: Anxiety, Depression, Homicidal Ideations, Suicidal Ideations Hematologic/ Lymphatic: Denies: Easy Bruising, Easy Bleeding Patient Problems: Active and Suspected Problems (Last Updated 12/20/17 @ 12:08 by Samanta Cabrera) Syncope (Acute) Atrial fibrillation with RVR (Acute) Hyperkalemia (Acute) Acute renal failure (Acute) - Physical Exam General: Alert, Oriented x3 HEENT: Atraumatic, TM's Clear Oral: Dry Mucosa Neck: Supple, No JVD Lungs: Clear to auscultation Cardiovascular: No murmurs, Irregular Rate, Tachycardic Abdomen: Bowel Sounds Present, Soft, Non Tender, Non-Distended Extremities: No clubbing, No cyanosis, No edema Skin: No rashes Musculoskeletal: No Tenderness to Palpation of Joints or Extremities Lymphatic: No Cervical, Supraclavicular, or Inguinal Adenopathy Neurological: Cranial nerves II-XII grossly intact Psych/Mental Status: Normal Affect Vital Signs Temp Pulse Resp BP Pulse Ox 97.8 F 160 H 18 99/69 100 06/27/18 14:47 06/27/18 15:00 06/27/18 15:00 06/27/18 15:00 06/27/18 15:00 Oxygen Flow Rate (L/min) 2 Oxygen Delivery Method Nasal Cannula Weight: 81.5 kg Body Mass Index (BMI) 24.3 Laboratory Tests Past 24 Hrs 06/27/18 06/27/18 06/27/18 10:30 12:00 12:00 Hgb Hct Sodium Potassium Chloride Carbon Dioxide Anion Gap BUN Creatinine Est GFR (MDRD) Af Amer Est GFR (MDRD) Non-Af BUN/Creatinine Ratio Glucose Hemoglobin A1c 5.6 Calcium Troponin I TSH 1.21 Urine Color Urine Clarity Urine pH Ur Specific [place] Urine Protein Urine Glucose (UA) Urine Ketones Urine Occult Blood Urine Nitrite Urine Bilirubin Urine Urobilinogen Ur Leukocyte Esterase Urine RBC Urine WBC Ur Squamous Epith Cells Urine Bacteria Hyaline Casts Urine Mucus MRSA (PCR) Negative 06/27/18 06/27/18 06/27/18 12:00 12:00 13:15 Hgb 11.9 L Hct 35.0 L Sodium Potassium Chloride Carbon Dioxide Anion Gap BUN Creatinine Est GFR (MDRD) Af Amer Est GFR (MDRD) Non-Af BUN/Creatinine Ratio Glucose Hemoglobin A1c Calcium Troponin I 0.129 H TSH Urine Color Yellow Urine Clarity Clear Urine pH 5.0 Ur Specific [place] 1.015 Urine Protein 15 H Urine Glucose (UA) Normal Urine Ketones 5 H Urine Occult Blood 10 H Urine Nitrite Negative Urine Bilirubin Negative Urine Urobilinogen Normal Ur Leukocyte Esterase Negative Urine RBC 0-5 SEEN Urine WBC 0 SEEN Ur Squamous Epith Cells 0-5 SEEN Urine Bacteria 0 SEEN Hyaline Casts 0-5 SEEN Urine Mucus 0 SEEN MRSA (PCR) 06/27/18 06/27/18 06/27/18 15:10 15:10 15:10 Hgb 11.6 L Hct 34.6 L Sodium Pending Potassium Pending Chloride Pending Carbon Dioxide Pending Anion Gap Pending BUN Pending Creatinine Pending Est GFR (MDRD) Af Amer Pending Est GFR (MDRD) Non-Af Pending BUN/Creatinine Ratio Pending Glucose Pending Hemoglobin A1c Calcium Pending Troponin I Pending TSH Urine Color Urine Clarity Urine pH Ur Specific [place] Urine Protein Urine Glucose (UA) Urine Ketones Urine Occult Blood Urine Nitrite Urine Bilirubin Urine Urobilinogen Ur Leukocyte Esterase Urine RBC Urine WBC Ur Squamous Epith Cells Urine Bacteria Hyaline Casts Urine Mucus MRSA (PCR) Assessment/Plan All Active Problems (Last Updated 12/20/17 @ 12:08 by Samanta Cabrera) Syncope (Acute) Atrial fibrillation with RVR (Acute) Hyperkalemia (Acute) Acute renal failure (Acute) 1. Acute kidney injury. Baseline SCr 1.03 mg/dL (August 2017). BLAYNE is likely due to prerenal azotemia or ischemic ATN from volume depletion. Pt has been on losartan and spironolactone which likely worsened renal function. Agree with IVF for volume repletion. Stop ARB and spironolactone. Check urine indices. Will dialyze because of hyperkalemia, especially with dysrhythmia. Check renal US to evaluate for obstruction. Agree with Solorzano given history of lower urinary tract symptoms. Reassess renal function in am. Meds are reviewed. 2. Hyperkalemia. K is 7.1. This is 2/2 BLAYNE along with concurrent use of ARB and aldosterone antagonist. Will dialyze today. Recheck K in am. 3. Metabolic acidosis. Should improve with dialysis. Recheck HCO3 in am. 4. HTN. History of HTN. Currently hypotensive. Hold BP meds. Give fluid.
[2018-06-27 15:49] LABS: Anion Gap 15 (5-15); BUN 156 mg/dL (7-18); BUN/Creat Ratio 43.1 RATIO (10-20); Calcium,Total 8.5 mg/dL (8.5-10.1); Chloride 119 mmol/L (98-107); Creatinine, Serum 3.62 mg/dL (0.70-1.30); EST Glomerular Filtration Rate 18 mL/min (>60); Est Glom Filt Rate - Afr Amer 22 mL/min (>60); Estimated Creatinine Clearance 20.84 ml/min; Glucose 94 mg/dL (74-106); Potassium 5.7 mmol/L (3.5-5.1); Sodium Level 146 mmol/L (136-145)
[2018-06-27] MEDS: HYDROcodone Bitartrate/Apap 5/325 Tablet PO (16:45)
[2018-06-27 17:00] LABS: Bedside Glucose 92 mg/dL (70-110)
[2018-06-27 17:09] LABS: Urine Sodium 23 mmol/L (Not Establ.)
[2018-06-27 18:22] LABS: Hematocrit 32.7 % (40-54); Hemoglobin 11.2 g/dl (13.0-16.5)
--- NOTE | 2018-06-27 18:28 | DIALYSIS ---
HD x 2.5 hours complete. Positive 1300ml in fluid post tx. Dr. Palomo is aware of low bp post tx. Used Right femoral catheter. Catheter closed with heparin per fill volume. Report was given to ANISA Ramirez.
[2018-06-27] MEDS: Etomidate 20 MG/10 ML Vial 4 MG IV (18:42)
[2018-06-27 18:51] LABS: Base Excess -4 mmol/L (-2 to +2); Bicarbonate 18.8 mmol/L (22-26); Blood Gas Specimen Type ART; O2 Delivery Device Room Air; PO2 95 mmHG (75-100); SITE L Radial; SO2 98 % (95-99); Time Given 1838; Total Carbon Dioxide 19 mmol/L
[2018-06-27 18:52] LABS: Anion Gap 13 (5-15); BUN 85 mg/dL (7-18); BUN/Creat Ratio 41.5 RATIO (10-20); Calcium,Total 7.5 mg/dL (8.5-10.1); Chloride 104 mmol/L (98-107); Creatinine, Serum 2.05 mg/dL (0.70-1.30); EST Glomerular Filtration Rate 34 mL/min (>60); Est Glom Filt Rate - Afr Amer 41 mL/min (>60); Glucose 123 mg/dL (74-106); Sodium Level 138 mmol/L (136-145)
--- NOTE | 2018-06-27 18:54 | NURSING ---
Called pt's Samanta. Updated on pt status i.e. dialysis, electrolyte improvement, persistent afib w/ low blood pressures, cardioversion and sedation for procedure. Also updated her on the start of levophed for BP support and the possible need for a central line. She verbalizes understanding and consents to central line placement if needed.
--- NOTE | 2018-06-27 19:07 | NURSING ---
1840 Dr. Hassan at bedside for cardioversion. RT at bedside as well preparing to bag. 184 4 mg etomidate given. 184 synchronized cardioversion complete at 200J. BP 92/50 HR 88 RR 14 SPO2 100 on 2L. Pt appeared to be in SR w/ PACs. EKG completed. 1844 BP 88/55 HR 89 RR 12 SPO2 100% on 2L. Levo remains at 5 mcg/min. Dr. Hassan evaluating for possible central line placement. Informed of allergy to lidocaine.
--- NOTE | 2018-06-27 19:10 | PCM.OP.BLANK ---
Problem List (1) Atrial fibrillation with RVR Status: Acute Operative Report Date of Procedure: 06/27/18 Procedure is synchronized direct current cardioversion Indication is atrial fibrillation with RVR and hypotension I discussed procedures and risks with the patient and agreed to proceed Procedure: Patient was sedated with 4 mg etomidate. With 200 J and in sync patient was cardioverted to a normal sinus rhythm. Patient tolerated the procedure well but did have a gasp when he was shocked but then quickly dozed off again. Code Visit [id number]: [id number] Cardioversion electric ext
[2018-06-27 21:51] LABS: Bedside Glucose 100 mg/dL (70-110)
[2018-06-27 22:49] LABS: Hematocrit 29.5 % (40-54)
[2018-06-28] VITALS (52 sets, daily range): BP systolic 67–123; BP diastolic 43–84; PULSE 65–91; RESP 12–20; TEMP 36.7–37.1; O2SAT 97–100
--- NOTE | 2018-06-28 01:03 | NURSING ---
Pt to and from CT via bed, on mold technician and IV's infusing. Pt tolerated fair with c/o pain moving from bed to CT table and back. Back to room and comfortable at this time. Safety ensured.
[2018-06-28] MEDS: 0.9% Normal Saline 1,000 ML 150 ML IV ×4 (02:29→22:02)
[2018-06-28] MEDS: Acetaminophen 325 MG Tablet 650 MG PO (03:37)
[2018-06-28 04:30] LABS: Absolute Lymphocyte Count 1.14 X10^3/ul (0.83-4.51); Absolute Neutrophil Count 5.7 X10^3/uL (2.0-7.7); Basophil# 0.02 X10^3/uL; Basophil% 0.2 % (0-1); Eosinophil# 0.45 X10^3/uL; Eosinophils% 5.2 % (0-5); Hematocrit 29.7 % (40-54); Hemoglobin 10.1 g/dl (13.0-16.5); Lymphocyte # 1.14 X10^3/ul (4.0); Lymphocyte % 13.2 % (19-41); Mean Corpuscular Hgb 31.6 pg (27.0-32.0); Mean Corpuscular Volume 92.8 fL (80-94); Mean Platelet Vol. 11.6 fl (6.2-12.0); Monocyte# 1.21 X10^3/uL; Monocyte% 14.1 % (0-10); Neutrophil # 5.72 X10^3/uL (2.7-7.7); Neutrophil % 66.5 % (47-70); POSITIVE COUNT NO; POSITIVE DIFFERENTIAL NO; POSITIVE MORPHOLOGY NO; Platelet Count 145 K/mm3 (150-450); RBC Distribution Width CV 13.3 % (11.6-14.6); RBC Distribution Width SD 43.6 fl (35.1-43.9); White Blood Count 8.6 K/mm3 (4.4-11.0)
[2018-06-28] MEDS: 0.9% NaCl Peripheral Flush Adult/Peds IV ×6 (04:30→19:40)
[2018-06-28 04:55] LABS: AST(SGOT) 24 U/L (15-37); Alanine Aminotransfer ALT/SGPT 20 U/L (16-61); Albumin, Serum 2.8 g/dL (3.2-5.0); Alkaline Phosphatase 44 U/L (45-117); Anion Gap 14 (5-15); BUN 79 mg/dL (7-18); BUN/Creat Ratio 37.1 RATIO (10-20); Calcium,Total 7.7 mg/dL (8.5-10.1); Chloride 108 mmol/L (98-107); Creatinine, Serum 2.13 mg/dL (0.70-1.30); EST Glomerular Filtration Rate 33 mL/min (>60); Est Glom Filt Rate - Afr Amer 40 mL/min (>60); Estimated Creatinine Clearance 35.42 ml/min; Globulin 2.7 g/dL (2.2-4.2); Glucose 91 mg/dL (74-106); Potassium 4.3 mmol/L (3.5-5.1); Protein, Total 5.5 g/dL (6.4-8.2); Sodium Level 143 mmol/L (136-145)
--- NOTE | 2018-06-28 07:44 | PCM.PN.INT ---
Subjective: Overnight events were noted. Patient did tolerate hemodialysis, but hypotension was noted throughout despite fluid boluses. Patient remains on amiodarone drip. Patient feels subjectively unchanged compared to previous. Patient is not reporting any significant abdominal pain. Patient has remained on room air, but was initiated on Levophed therapy secondary to decreased blood pressure. No signs of bleeding have been reported by nursing overnight. Nursing did contact nephrology and they are okay with the placement of a PICC line. Patient does report that he was recently seen by a dentist as an outpatient. Patient states he has had issues with his fillings falling out, but was embarrassed to say anything to anyone when he arrived initially. Patient denies any significant oral pain. General: Alert, Oriented x3, Cooperative, No apparent distress, - - Pale in appearance HEENT: Atraumatic, PERRLA, EOMI, Normocephalic, - - No scleral icterus or injection noted. Pale conjunctival. Oral: Moist Mucosa, - - Poor dentition. Neck: Supple, No JVD, No Nodes, Trachea Midline Lungs: No rhonchi, No wheeze, No rales, Diminished, - - Symmetric expansion. No dullness to percussion. Cardiovascular: Regular rate, Regular Rhythm, Normal S1, Normal S2, Murmur - Grade 2 out of 6 systolic ejection murmur at the left sternal border, No rub noted, No Gallop Abdomen: Bowel Sounds Present, Soft, Non Tender, Non-Distended Extremities: No cyanosis, No edema, Capillary Refill Less than 3 Seconds, Clubbing, - - Right groin hemodialysis catheter Skin: No rashes, No breakdown Musculoskeletal: No Tenderness to Palpation of Joints or Extremities Lymphatic: No Cervical, Supraclavicular, or Inguinal Adenopathy Neurological: Cranial nerves II-XII grossly intact, Neuro grossly intact, Motor Exam 5/5 strength throughout Psych/Mental Status: Appropriate, Flat Affect Vital Signs Temp Pulse Resp BP Pulse Ox 37.1 C 80 16 101/61 100 06/28/18 04:00 06/28/18 07:34 06/28/18 07:15 06/28/18 07:15 06/28/18 07:15 Oxygen Flow Rate (L/min) 2 Oxygen Delivery Method Room Air Weight: 82.1 kg Body Mass Index (BMI) 24.3 Intake and Output for Last 24 Hours 06/26/18 06/27/18 06/28/18 23:59 23:59 23:59 Intake Total 3852.5 / 3852.5 931.2 / 931.2 Output Total 700 / 700 250 / 250 Balance 3152.5 / 3152.5 681.2 / 681.2 Labs (Last 48 Hours) 06/27/18 06/27/18 06/27/18 10:30 12:00 12:00 WBC RBC Hgb Hct MCV MCH MCHC RDW RDW Differential Plt Count MPV Immature Gran % (Auto) Neut % (Auto) Lymph % (Auto) [place] % (Auto) Eos % (Auto) Baso % (Auto) Absolute Neuts (auto) Absolute Lymphs (auto) Total Counted Specimen Type Sample Site pH Bicarbonate Actual POC Total CO2 Base Excess O2 Saturation ABG pCO2 ABG pO2 Steven Test O2 Delivery Device Blood Gas Notified Whom Blood Gas Notified Time Sodium Potassium Chloride Carbon Dioxide Anion Gap BUN Creatinine Estim Creat Clear Calc Est GFR (MDRD) Af Amer Est GFR (MDRD) Non-Af BUN/Creatinine Ratio Glucose Hemoglobin A1c 5.6 Calcium Total Bilirubin AST ALT Alkaline Phosphatase Troponin I Total Protein Albumin Globulin Albumin/Globulin Ratio TSH 1.21 Urine Color Urine Clarity Urine pH Ur Specific [place] Urine Protein Urine Glucose (UA) Urine Ketones Urine Occult Blood Urine Nitrite Urine Bilirubin Urine Urobilinogen Ur Leukocyte Esterase Urine RBC Urine WBC Ur Squamous Epith Cells Urine Bacteria Hyaline Casts Urine Mucus Ur Random Sodium Urine Creatinine MRSA (PCR) Negative POC Glucose 06/27/18 06/27/18 06/27/18 12:00 12:00 13:15 WBC RBC Hgb 11.9 L Hct 35.0 L MCV MCH MCHC RDW RDW Differential Plt Count MPV Immature Gran % (Auto) Neut % (Auto) Lymph % (Auto) [place] % (Auto) Eos % (Auto) Baso % (Auto) Absolute Neuts (auto) Absolute Lymphs (auto) Total Counted Specimen Type Sample Site pH Bicarbonate Actual POC Total CO2 Base Excess O2 Saturation ABG pCO2 ABG pO2 Steven Test O2 Delivery Device Blood Gas Notified Whom Blood Gas Notified Time Sodium Potassium Chloride Carbon Dioxide Anion Gap BUN Creatinine Estim Creat Clear Calc Est GFR (MDRD) Af Amer Est GFR (MDRD) Non-Af BUN/Creatinine Ratio Glucose Hemoglobin A1c Calcium Total Bilirubin AST ALT Alkaline Phosphatase Troponin I 0.129 H Total Protein Albumin Globulin Albumin/Globulin Ratio TSH Urine Color Yellow Urine Clarity Clear Urine pH 5.0 Ur Specific [place] 1.015 Urine Protein 15 H Urine Glucose (UA) Normal Urine Ketones 5 H Urine Occult Blood 10 H Urine Nitrite Negative Urine Bilirubin Negative Urine Urobilinogen Normal Ur Leukocyte Esterase Negative Urine RBC 0-5 SEEN Urine WBC 0 SEEN Ur Squamous Epith Cells 0-5 SEEN Urine Bacteria 0 SEEN Hyaline Casts 0-5 SEEN Urine Mucus 0 SEEN Ur Random Sodium Urine Creatinine MRSA (PCR) POC Glucose 06/27/18 06/27/18 06/27/18 13:15 13:15 15:10 WBC RBC Hgb Hct MCV MCH MCHC RDW RDW Differential Plt Count MPV Immature Gran % (Auto) Neut % (Auto) Lymph % (Auto) [place] % (Auto) Eos % (Auto) Baso % (Auto) Absolute Neuts (auto) Absolute Lymphs (auto) Total Counted Specimen Type Sample Site pH Bicarbonate Actual POC Total CO2 Base Excess O2 Saturation ABG pCO2 ABG pO2 Steven Test O2 Delivery Device Blood Gas Notified Whom Blood Gas Notified Time Sodium 146 H Potassium 5.7 H Chloride 119 H Carbon Dioxide 12.0 L Anion Gap 15 BUN 156 H* Creatinine 3.62 H Estim Creat Clear Calc 20.84 Est GFR (MDRD) Af Amer 22 L Est GFR (MDRD) Non-Af 18 L BUN/Creatinine Ratio 43.1 H Glucose 94 Hemoglobin A1c Calcium 8.5 Total Bilirubin AST ALT Alkaline Phosphatase Troponin I Total Protein Albumin Globulin Albumin/Globulin Ratio TSH Urine Color Urine Clarity Urine pH Ur Specific [place] Urine Protein Urine Glucose (UA) Urine Ketones Urine Occult Blood Urine Nitrite Urine Bilirubin Urine Urobilinogen Ur Leukocyte Esterase Urine RBC Urine WBC Ur Squamous Epith Cells Urine Bacteria Hyaline Casts Urine Mucus Ur Random Sodium 23 Urine Creatinine 155.00 MRSA (PCR) POC Glucose 06/27/18 06/27/18 06/27/18 15:10 15:10 16:55 WBC RBC Hgb 11.6 L Hct 34.6 L MCV MCH MCHC RDW RDW Differential Plt Count MPV Immature Gran % (Auto) Neut % (Auto) Lymph % (Auto) [place] % (Auto) Eos % (Auto) Baso % (Auto) Absolute Neuts (auto) Absolute Lymphs (auto) Total Counted Specimen Type Sample Site pH Bicarbonate Actual POC Total CO2 Base Excess O2 Saturation ABG pCO2 ABG pO2 Steven Test O2 Delivery Device Blood Gas Notified Whom Blood Gas Notified Time Sodium Potassium Chloride Carbon Dioxide Anion Gap BUN Creatinine Estim Creat Clear Calc Est GFR (MDRD) Af Amer Est GFR (MDRD) Non-Af BUN/Creatinine Ratio Glucose Hemoglobin A1c Calcium Total Bilirubin AST ALT Alkaline Phosphatase Troponin I 0.155 H Total Protein Albumin Globulin Albumin/Globulin Ratio TSH Urine Color Urine Clarity Urine pH Ur Specific [place] Urine Protein Urine Glucose (UA) Urine Ketones Urine Occult Blood Urine Nitrite Urine Bilirubin Urine Urobilinogen Ur Leukocyte Esterase Urine RBC Urine WBC Ur Squamous Epith Cells Urine Bacteria Hyaline Casts Urine Mucus Ur Random Sodium Urine Creatinine MRSA (PCR) POC Glucose 92 06/27/18 06/27/18 06/27/18 18:10 18:10 18:42 WBC RBC Hgb 11.2 L Hct 32.7 L MCV MCH MCHC RDW RDW Differential Plt Count MPV Immature Gran % (Auto) Neut % (Auto) Lymph % (Auto) [place] % (Auto) Eos % (Auto) Baso % (Auto) Absolute Neuts (auto) Absolute Lymphs (auto) Total Counted Specimen Type ART Sample Site L Radial pH 7.50 H Bicarbonate Actual 18.8 L POC Total CO2 19 Base Excess -4 L O2 Saturation 98 ABG pCO2 24.0 L ABG pO2 95 Steven Test NA O2 Delivery Device Room Air Blood Gas Notified Whom ICU MD Blood Gas Notified Time 1838 Sodium 138 Potassium 4.0 Chloride 104 Carbon Dioxide 21.0 Anion Gap 13 BUN 85 H Creatinine 2.05 H Estim Creat Clear Calc 36.80 Est GFR (MDRD) Af Amer 41 L Est GFR (MDRD) Non-Af 34 L BUN/Creatinine Ratio 41.5 H Glucose 123 H Hemoglobin A1c Calcium 7.5 L Total Bilirubin AST ALT Alkaline Phosphatase Troponin I 0.175 H Total Protein Albumin Globulin Albumin/Globulin Ratio TSH Urine Color Urine Clarity Urine pH Ur Specific [place] Urine Protein Urine Glucose (UA) Urine Ketones Urine Occult Blood Urine Nitrite Urine Bilirubin Urine Urobilinogen Ur Leukocyte Esterase Urine RBC Urine WBC Ur Squamous Epith Cells Urine Bacteria Hyaline Casts Urine Mucus Ur Random Sodium Urine Creatinine MRSA (PCR) POC Glucose 06/27/18 06/27/18 06/28/18 21:35 22:40 04:20 WBC 8.6 RBC 3.20 L Hgb 10.0 L 10.1 L Hct 29.5 L 29.7 L MCV 92.8 MCH 31.6 MCHC 34.0 RDW 13.3 RDW Differential 43.6 Plt Count 145 L MPV 11.6 Immature Gran % (Auto) 0.800 Neut % (Auto) 66.5 Lymph % (Auto) 13.2 L [place] % (Auto) 14.1 H Eos % (Auto) 5.2 H Baso % (Auto) 0.2 Absolute Neuts (auto) 5.7 Absolute Lymphs (auto) 1.14 Total Counted Not Reportable Specimen Type Sample Site pH Bicarbonate Actual POC Total CO2 Base Excess O2 Saturation ABG pCO2 ABG pO2 Steven Test O2 Delivery Device Blood Gas Notified Whom Blood Gas Notified Time Sodium Potassium Chloride Carbon Dioxide Anion Gap BUN Creatinine Estim Creat Clear Calc Est GFR (MDRD) Af Amer Est GFR (MDRD) Non-Af BUN/Creatinine Ratio Glucose Hemoglobin A1c Calcium Total Bilirubin AST ALT Alkaline Phosphatase Troponin I Total Protein Albumin Globulin Albumin/Globulin Ratio TSH Urine Color Urine Clarity Urine pH Ur Specific [place] Urine Protein Urine Glucose (UA) Urine Ketones Urine Occult Blood Urine Nitrite Urine Bilirubin Urine Urobilinogen Ur Leukocyte Esterase Urine RBC Urine WBC Ur Squamous Epith Cells Urine Bacteria Hyaline Casts Urine Mucus Ur Random Sodium Urine Creatinine MRSA (PCR) POC Glucose 100 06/28/18 04:20 WBC RBC Hgb Hct MCV MCH MCHC RDW RDW Differential Plt Count MPV Immature Gran % (Auto) Neut % (Auto) Lymph % (Auto) [place] % (Auto) Eos % (Auto) Baso % (Auto) Absolute Neuts (auto) Absolute Lymphs (auto) Total Counted Specimen Type Sample Site pH Bicarbonate Actual POC Total CO2 Base Excess O2 Saturation ABG pCO2 ABG pO2 Steven Test O2 Delivery Device Blood Gas Notified Whom Blood Gas Notified Time Sodium 143 Potassium 4.3 Chloride 108 H Carbon Dioxide 21.0 Anion Gap 14 BUN 79 H Creatinine 2.13 H Estim Creat Clear Calc 35.42 Est GFR (MDRD) Af Amer 40 L Est GFR (MDRD) Non-Af 33 L BUN/Creatinine Ratio 37.1 H Glucose 91 Hemoglobin A1c Calcium 7.7 L Total Bilirubin 0.40 AST 24 ALT 20 Alkaline Phosphatase 44 L Troponin I Total Protein 5.5 L Albumin 2.8 L Globulin 2.7 Albumin/Globulin Ratio 1.0 TSH Urine Color Urine Clarity Urine pH Ur Specific [place] Urine Protein Urine Glucose (UA) Urine Ketones Urine Occult Blood Urine Nitrite Urine Bilirubin Urine Urobilinogen Ur Leukocyte Esterase Urine RBC Urine WBC Ur Squamous Epith Cells Urine Bacteria Hyaline Casts Urine Mucus Ur Random Sodium Urine Creatinine MRSA (PCR) POC Glucose Clinical Impression(s) from Imaging Studies Chest X-Ray 06/27/18 08:38 IMPRESSION: Hyperinflation. The lungs are clear. Electronically Signed: Blade Myles MD at 9:04 EDT Tel [phone], Service support , Pelvis X-Ray 06/27/18 08:45 IMPRESSION: No fracture is seen. Electronically Signed: Blade Myles MD at 9:03 EDT Tel [phone], Service support , Renal Ultrasound 06/27/18 10:59 IMPRESSION: A small 1.8 cm cyst from the left kidney. No hydronephrosis on either side. A Solorzano's catheter is in the urinary bladder Electronically Signed: Brandt Deras, at 23:51 EDT Tel , Service support , Chest X-Ray 06/27/18 13:23 IMPRESSION: Hyperinflation. No acute abnormality is seen. Electronically Signed: Blade Myles MD at 14:12 EDT Tel [phone], Service support , Abdomen/Pelvis CT 06/28/18 10:50 IMPRESSION: Pneumobilia. No gallstones. Calcifications within the kidneys but these are deemed to be vascular in origin. No acute appendicitis or diverticulitis Electronically Signed: Brandt Deras, at 1:38 EDT Tel , Service support , Medical Necessity - Tobacco Use Smoking Status: Former smoker Assessment/Plan All Active Problems (Last Updated 12/20/17 @ 12:08 by Samanta Cabrera) Syncope (Acute) Atrial fibrillation with RVR (Acute) Hyperkalemia (Acute) Acute renal failure (Acute) RECOMMENDATIONS: 1. Hemodialysis per nephrology 2. General surgery consultation 3. Initiate empiric antibiotics 4. Place PICC line 5. Wean oxygen as tolerated 6. Guaiac stool and Protonix twice daily if positive 7. Cycle troponins IMPRESSIONS: 1. Acute renal failure/hyperkalemia Unclear etiology at this time. Patient's fractional excretion of sodium is less than 1%. Patient has received significant volume resuscitation over the last 24 hours. Patient has been able to make some urine over this time. Hyperkalemia is much improved compared to previous. Defer to nephrology on timing for further hemodialysis therapy. 2. Probable acute upper GI bleed Patient is reporting 2-3 days of black stools prior to admission. Patient does take aspirin, but no other NSAIDs are reported. Patient is on Plavix at baseline. H&H has fallen since presentation, but this may be secondary to fluid resuscitation as all blood lines have decreased. CT of the abdomen shows pneumobilia of unclear etiology. Patient does not appear to have an acute abdomen at this time. Patient reports a history of penicillin allergy of unknown reaction. Patient states he was told this is a child. Will initiate patient on empiric meropenem. 3. Non-anion gap metabolic acidosis RESOLVED > Clinical suspicion for significant acidosis related to acute renal failure. Patient's lactate is within normal limits. Appears to be all secondary to renal failure 4. A. fib with RVR/coronary artery disease Cardiology has been consulted. Patient reportedly does not have a history of A. fib with RVR, but does have a history of stents. Patient did receive a cardioversion yesterday secondary to hypotension with continued A. fib with RVR following hemodialysis. Patient has remained in normal sinus rhythm since that time. Troponins have been relatively unremarkable. 5. Syncopal event Multiple possible etiologies. Patient is in new onset atrial fibrillation with RVR. Patient did have some questionable torsades in the ER. Patient also has acute renal failure with electrolyte abnormalities. Patient does not have any focal neurologic deficits to suggest a stroke at this time. Cannot exclude a seizure, but patient does not have any bruising or tongue lesions to suggest seizure activity. No seizure activity has been noted during hospitalization 6. Acute hypoxic respiratory insufficiency Clinical suspicion for complications of acute renal failure leading to increased oxygen requirements. Will initiate on hemodialysis. Continue supplemental oxygen for now. Patient does have an echocardiogram ordered. Patient with reported history of COPD, but does not use inhaler therapy at home. Will attempt to avoid bronchodilators given patient's A. fib with RVR. 7. Reported BPH/advanced age/hypercholesterolemia/hypertension/diet-controlled diabetes mellitus/PVD Complicates care, management, recovery and prognosis. Will obtain a renal ultrasound to rule out postobstructive process. Sliding scale insulin should be sufficient. Hold Plavix secondary to possible upper GI bleed 8. Shock Unclear etiology of patient's persistent hypotension. Patient has been initiated on Levophed therapy. Empiric antibiotics will be started at this time given patient's pneumobilia, but no leukocytosis has been noted throughout hospitalization. TIME: 45 minutes critical care time spent addressing patient's acute kidney injury, upper GI bleed, metabolic acidosis, respiratory insufficiency, review of all data and collaboration with care team (5:30 AM to 8 AM) Code Visit [id number]: [id number] Critical care first hour
--- NOTE | 2018-06-28 07:50 | PN_ITS ---
Subjective: Overnight events were noted. Patient did tolerate hemodialysis, but hypotension was noted throughout despite fluid boluses. Patient remains on amiodarone drip. Patient feels subjectively unchanged compared to previous. Patient is not reporting any significant abdominal pain. Patient has remained on room air, but was initiated on Levophed therapy secondary to decreased blood pressure. No signs of bleeding have been reported by nursing overnight. Nursing did contact nephrology and they are okay with the placement of a PICC line. Patient does report that he was recently seen by a dentist as an outpatient. Patient states he has had issues with his fillings falling out, but was embarrassed to say anything to anyone when he arrived initially. Patient denies any significant oral pain. General: Alert, Oriented x3, Cooperative, No apparent distress, - - Pale in appearance HEENT: Atraumatic, PERRLA, EOMI, Normocephalic, - - No scleral icterus or injection noted. Pale conjunctival. Oral: Moist Mucosa, - - Poor dentition. Neck: Supple, No JVD, No Nodes, Trachea Midline Lungs: No rhonchi, No wheeze, No rales, Diminished, - - Symmetric expansion. No dullness to percussion. Cardiovascular: Regular rate, Regular Rhythm, Normal S1, Normal S2, Murmur - Grade 2 out of 6 systolic ejection murmur at the left sternal border, No rub noted, No Gallop Abdomen: Bowel Sounds Present, Soft, Non Tender, Non-Distended Extremities: No cyanosis, No edema, Capillary Refill Less than 3 Seconds, Clubbing, - - Right groin hemodialysis catheter Skin: No rashes, No breakdown Musculoskeletal: No Tenderness to Palpation of Joints or Extremities Lymphatic: No Cervical, Supraclavicular, or Inguinal Adenopathy Neurological: Cranial nerves II-XII grossly intact, Neuro grossly intact, Motor Exam 5/5 strength throughout Psych/Mental Status: Appropriate, Flat Affect Vital Signs Temp Pulse Resp BP Pulse Ox 37.1 C 80 16 101/61 100 06/28/18 04:00 06/28/18 07:34 06/28/18 07:15 06/28/18 07:15 06/28/18 07:15 Oxygen Flow Rate (L/min) 2 Oxygen Delivery Method Room Air Weight: 82.1 kg Body Mass Index (BMI) 24.3 Intake and Output for Last 24 Hours 06/26/18 06/27/18 06/28/18 23:59 23:59 23:59 Intake Total 3852.5 / 3852.5 931.2 / 931.2 Output Total 700 / 700 250 / 250 Balance 3152.5 / 3152.5 681.2 / 681.2 Labs (Last 48 Hours) 06/27/18 06/27/18 06/27/18 10:30 12:00 12:00 WBC RBC Hgb Hct MCV MCH MCHC RDW RDW Differential Plt Count MPV Immature Gran % (Auto) Neut % (Auto) Lymph % (Auto) [place] % (Auto) Eos % (Auto) Baso % (Auto) Absolute Neuts (auto) Absolute Lymphs (auto) Total Counted Specimen Type Sample Site pH Bicarbonate Actual POC Total CO2 Base Excess O2 Saturation ABG pCO2 ABG pO2 Steven Test O2 Delivery Device Blood Gas Notified Whom Blood Gas Notified Time Sodium Potassium Chloride Carbon Dioxide Anion Gap BUN Creatinine Estim Creat Clear Calc Est GFR (MDRD) Af Amer Est GFR (MDRD) Non-Af BUN/Creatinine Ratio Glucose Hemoglobin A1c 5.6 Calcium Total Bilirubin AST ALT Alkaline Phosphatase Troponin I Total Protein Albumin Globulin Albumin/Globulin Ratio TSH 1.21 Urine Color Urine Clarity Urine pH Ur Specific [place] Urine Protein Urine Glucose (UA) Urine Ketones Urine Occult Blood Urine Nitrite Urine Bilirubin Urine Urobilinogen Ur Leukocyte Esterase Urine RBC Urine WBC Ur Squamous Epith Cells Urine Bacteria Hyaline Casts Urine Mucus Ur Random Sodium Urine Creatinine MRSA (PCR) Negative POC Glucose 06/27/18 06/27/18 06/27/18 12:00 12:00 13:15 WBC RBC Hgb 11.9 L Hct 35.0 L MCV MCH MCHC RDW RDW Differential Plt Count MPV Immature Gran % (Auto) Neut % (Auto) Lymph % (Auto) [place] % (Auto) Eos % (Auto) Baso % (Auto) Absolute Neuts (auto) Absolute Lymphs (auto) Total Counted Specimen Type Sample Site pH Bicarbonate Actual POC Total CO2 Base Excess O2 Saturation ABG pCO2 ABG pO2 Steven Test O2 Delivery Device Blood Gas Notified Whom Blood Gas Notified Time Sodium Potassium Chloride Carbon Dioxide Anion Gap BUN Creatinine Estim Creat Clear Calc Est GFR (MDRD) Af Amer Est GFR (MDRD) Non-Af BUN/Creatinine Ratio Glucose Hemoglobin A1c Calcium Total Bilirubin AST ALT Alkaline Phosphatase Troponin I 0.129 H Total Protein Albumin Globulin Albumin/Globulin Ratio TSH Urine Color Yellow Urine Clarity Clear Urine pH 5.0 Ur Specific [place] 1.015 Urine Protein 15 H Urine Glucose (UA) Normal Urine Ketones 5 H Urine Occult Blood 10 H Urine Nitrite Negative Urine Bilirubin Negative Urine Urobilinogen Normal Ur Leukocyte Esterase Negative Urine RBC 0-5 SEEN Urine WBC 0 SEEN Ur Squamous Epith Cells 0-5 SEEN Urine Bacteria 0 SEEN Hyaline Casts 0-5 SEEN Urine Mucus 0 SEEN Ur Random Sodium Urine Creatinine MRSA (PCR) POC Glucose 06/27/18 06/27/18 06/27/18 13:15 13:15 15:10 WBC RBC Hgb Hct MCV MCH MCHC RDW RDW Differential Plt Count MPV Immature Gran % (Auto) Neut % (Auto) Lymph % (Auto) [place] % (Auto) Eos % (Auto) Baso % (Auto) Absolute Neuts (auto) Absolute Lymphs (auto) Total Counted Specimen Type Sample Site pH Bicarbonate Actual POC Total CO2 Base Excess O2 Saturation ABG pCO2 ABG pO2 Steven Test O2 Delivery Device Blood Gas Notified Whom Blood Gas Notified Time Sodium 146 H Potassium 5.7 H Chloride 119 H Carbon Dioxide 12.0 L Anion Gap 15 BUN 156 H* Creatinine 3.62 H Estim Creat Clear Calc 20.84 Est GFR (MDRD) Af Amer 22 L Est GFR (MDRD) Non-Af 18 L BUN/Creatinine Ratio 43.1 H Glucose 94 Hemoglobin A1c Calcium 8.5 Total Bilirubin AST ALT Alkaline Phosphatase Troponin I Total Protein Albumin Globulin Albumin/Globulin Ratio TSH Urine Color Urine Clarity Urine pH Ur Specific [place] Urine Protein Urine Glucose (UA) Urine Ketones Urine Occult Blood Urine Nitrite Urine Bilirubin Urine Urobilinogen Ur Leukocyte Esterase Urine RBC Urine WBC Ur Squamous Epith Cells Urine Bacteria Hyaline Casts Urine Mucus Ur Random Sodium 23 Urine Creatinine 155.00 MRSA (PCR) POC Glucose 06/27/18 06/27/18 06/27/18 15:10 15:10 16:55 WBC RBC Hgb 11.6 L Hct 34.6 L MCV MCH MCHC RDW RDW Differential Plt Count MPV Immature Gran % (Auto) Neut % (Auto) Lymph % (Auto) [place] % (Auto) Eos % (Auto) Baso % (Auto) Absolute Neuts (auto) Absolute Lymphs (auto) Total Counted Specimen Type Sample Site pH Bicarbonate Actual POC Total CO2 Base Excess O2 Saturation ABG pCO2 ABG pO2 Steven Test O2 Delivery Device Blood Gas Notified Whom Blood Gas Notified Time Sodium Potassium Chloride Carbon Dioxide Anion Gap BUN Creatinine Estim Creat Clear Calc Est GFR (MDRD) Af Amer Est GFR (MDRD) Non-Af BUN/Creatinine Ratio Glucose Hemoglobin A1c Calcium Total Bilirubin AST ALT Alkaline Phosphatase Troponin I 0.155 H Total Protein Albumin Globulin Albumin/Globulin Ratio TSH Urine Color Urine Clarity Urine pH Ur Specific [place] Urine Protein Urine Glucose (UA) Urine Ketones Urine Occult Blood Urine Nitrite Urine Bilirubin Urine Urobilinogen Ur Leukocyte Esterase Urine RBC Urine WBC Ur Squamous Epith Cells Urine Bacteria Hyaline Casts Urine Mucus Ur Random Sodium Urine Creatinine MRSA (PCR) POC Glucose 92 06/27/18 06/27/18 06/27/18 18:10 18:10 18:42 WBC RBC Hgb 11.2 L Hct 32.7 L MCV MCH MCHC RDW RDW Differential Plt Count MPV Immature Gran % (Auto) Neut % (Auto) Lymph % (Auto) [place] % (Auto) Eos % (Auto) Baso % (Auto) Absolute Neuts (auto) Absolute Lymphs (auto) Total Counted Specimen Type ART Sample Site L Radial pH 7.50 H Bicarbonate Actual 18.8 L POC Total CO2 19 Base Excess -4 L O2 Saturation 98 ABG pCO2 24.0 L ABG pO2 95 Steven Test NA O2 Delivery Device Room Air Blood Gas Notified Whom ICU MD Blood Gas Notified Time 1838 Sodium 138 Potassium 4.0 Chloride 104 Carbon Dioxide 21.0 Anion Gap 13 BUN 85 H Creatinine 2.05 H Estim Creat Clear Calc 36.80 Est GFR (MDRD) Af Amer 41 L Est GFR (MDRD) Non-Af 34 L BUN/Creatinine Ratio 41.5 H Glucose 123 H Hemoglobin A1c Calcium 7.5 L Total Bilirubin AST ALT Alkaline Phosphatase Troponin I 0.175 H Total Protein Albumin Globulin Albumin/Globulin Ratio TSH Urine Color Urine Clarity Urine pH Ur Specific [place] Urine Protein Urine Glucose (UA) Urine Ketones Urine Occult Blood Urine Nitrite Urine Bilirubin Urine Urobilinogen Ur Leukocyte Esterase Urine RBC Urine WBC Ur Squamous Epith Cells Urine Bacteria Hyaline Casts Urine Mucus Ur Random Sodium Urine Creatinine MRSA (PCR) POC Glucose 06/27/18 06/27/18 06/28/18 21:35 22:40 04:20 WBC 8.6 RBC 3.20 L Hgb 10.0 L 10.1 L Hct 29.5 L 29.7 L MCV 92.8 MCH 31.6 MCHC 34.0 RDW 13.3 RDW Differential 43.6 Plt Count 145 L MPV 11.6 Immature Gran % (Auto) 0.800 Neut % (Auto) 66.5 Lymph % (Auto) 13.2 L [place] % (Auto) 14.1 H Eos % (Auto) 5.2 H Baso % (Auto) 0.2 Absolute Neuts (auto) 5.7 Absolute Lymphs (auto) 1.14 Total Counted Not Reportable Specimen Type Sample Site pH Bicarbonate Actual POC Total CO2 Base Excess O2 Saturation ABG pCO2 ABG pO2 Steven Test O2 Delivery Device Blood Gas Notified Whom Blood Gas Notified Time Sodium Potassium Chloride Carbon Dioxide Anion Gap BUN Creatinine Estim Creat Clear Calc Est GFR (MDRD) Af Amer Est GFR (MDRD) Non-Af BUN/Creatinine Ratio Glucose Hemoglobin A1c Calcium Total Bilirubin AST ALT Alkaline Phosphatase Troponin I Total Protein Albumin Globulin Albumin/Globulin Ratio TSH Urine Color Urine Clarity Urine pH Ur Specific [place] Urine Protein Urine Glucose (UA) Urine Ketones Urine Occult Blood Urine Nitrite Urine Bilirubin Urine Urobilinogen Ur Leukocyte Esterase Urine RBC Urine WBC Ur Squamous Epith Cells Urine Bacteria Hyaline Casts Urine Mucus Ur Random Sodium Urine Creatinine MRSA (PCR) POC Glucose 100 06/28/18 04:20 WBC RBC Hgb Hct MCV MCH MCHC RDW RDW Differential Plt Count MPV Immature Gran % (Auto) Neut % (Auto) Lymph % (Auto) [place] % (Auto) Eos % (Auto) Baso % (Auto) Absolute Neuts (auto) Absolute Lymphs (auto) Total Counted Specimen Type Sample Site pH Bicarbonate Actual POC Total CO2 Base Excess O2 Saturation ABG pCO2 ABG pO2 Steven Test O2 Delivery Device Blood Gas Notified Whom Blood Gas Notified Time Sodium 143 Potassium 4.3 Chloride 108 H Carbon Dioxide 21.0 Anion Gap 14 BUN 79 H Creatinine 2.13 H Estim Creat Clear Calc 35.42 Est GFR (MDRD) Af Amer 40 L Est GFR (MDRD) Non-Af 33 L BUN/Creatinine Ratio 37.1 H Glucose 91 Hemoglobin A1c Calcium 7.7 L Total Bilirubin 0.40 AST 24 ALT 20 Alkaline Phosphatase 44 L Troponin I Total Protein 5.5 L Albumin 2.8 L Globulin 2.7 Albumin/Globulin Ratio 1.0 TSH Urine Color Urine Clarity Urine pH Ur Specific [place] Urine Protein Urine Glucose (UA) Urine Ketones Urine Occult Blood Urine Nitrite Urine Bilirubin Urine Urobilinogen Ur Leukocyte Esterase Urine RBC Urine WBC Ur Squamous Epith Cells Urine Bacteria Hyaline Casts Urine Mucus Ur Random Sodium Urine Creatinine MRSA (PCR) POC Glucose Clinical Impression(s) from Imaging Studies Chest X-Ray 06/27/18 08:38 IMPRESSION: Hyperinflation. The lungs are clear. Electronically Signed: Blade Myles MD at 9:04 EDT Tel [phone], Service support , Pelvis X-Ray 06/27/18 08:45 IMPRESSION: No fracture is seen. Electronically Signed: Blade Myles MD at 9:03 EDT Tel [phone], Service support , Renal Ultrasound 06/27/18 10:59 IMPRESSION: A small 1.8 cm cyst from the left kidney. No hydronephrosis on either side. A Solorzano's catheter is in the urinary bladder Electronically Signed: Brandt Deras, at 23:51 EDT Tel , Service support , Chest X-Ray 06/27/18 13:23 IMPRESSION: Hyperinflation. No acute abnormality is seen. Electronically Signed: Blade Myles MD at 14:12 EDT Tel [phone], Service support , Abdomen/Pelvis CT 06/28/18 10:50 IMPRESSION: Pneumobilia. No gallstones. Calcifications within the kidneys but these are deemed to be vascular in origin. No acute appendicitis or diverticulitis Electronically Signed: Brandt Deras, at 1:38 EDT Tel , Service support , Medical Necessity - Tobacco Use Smoking Status: Former smoker Assessment/Plan All Active Problems (Last Updated 12/20/17 @ 12:08 by Samanta Cabrera) Syncope (Acute) Atrial fibrillation with RVR (Acute) Hyperkalemia (Acute) Acute renal failure (Acute) RECOMMENDATIONS: 1. Hemodialysis per nephrology 2. General surgery consultation 3. Initiate empiric antibiotics 4. Place PICC line 5. Wean oxygen as tolerated 6. Guaiac stool and Protonix twice daily if positive 7. Cycle troponins IMPRESSIONS: 1. Acute renal failure/hyperkalemia Unclear etiology at this time. Patient's fractional excretion of sodium is less than 1%. Patient has received significant volume resuscitation over the last 24 hours. Patient has been able to make some urine over this time. Hyperkalemia is much improved compared to previous. Defer to nephrology on timing for further hemodialysis therapy. 2. Probable acute upper GI bleed Patient is reporting 2-3 days of black stools prior to admission. Patient does take aspirin, but no other NSAIDs are reported. Patient is on Plavix at baseline. H&H has fallen since presentation, but this may be secondary to fluid resuscitation as all blood lines have decreased. CT of the abdomen shows pneumobilia of unclear etiology. Patient does not appear to have an acute abdomen at this time. Patient reports a history of penicillin allergy of unknown reaction. Patient states he was told this is a child. Will initiate patient on empiric meropenem. 3. Non-anion gap metabolic acidosis RESOLVED > Clinical suspicion for significant acidosis related to acute renal failure. Patient's lactate is within normal limits. Appears to be all secondary to renal failure 4. A. fib with RVR/coronary artery disease Cardiology has been consulted. Patient reportedly does not have a history of A. fib with RVR, but does have a history of stents. Patient did receive a cardioversion yesterday secondary to hypotension with continued A. fib with RVR following hemodialysis. Patient has remained in normal sinus rhythm since that time. Troponins have been relatively unremarkable. 5. Syncopal event Multiple possible etiologies. Patient is in new onset atrial fibrillation with RVR. Patient did have some questionable torsades in the ER. Patient also has acute renal failure with electrolyte abnormalities. Patient does not have any focal neurologic deficits to suggest a stroke at this time. Cannot exclude a seizure, but patient does not have any bruising or tongue lesions to suggest seizure activity. No seizure activity has been noted during hospitalization 6. Acute hypoxic respiratory insufficiency Clinical suspicion for complications of acute renal failure leading to increased oxygen requirements. Will initiate on hemodialysis. Continue supplemental oxygen for now. Patient does have an echocardiogram ordered. Patient with reported history of COPD, but does not use inhaler therapy at home. Will attempt to avoid bronchodilators given patient's A. fib with RVR. 7. Reported BPH/advanced age/hypercholesterolemia/hypertension/diet- controlled diabetes mellitus/PVD Complicates care, management, recovery and prognosis. Will obtain a renal ultrasound to rule out postobstructive process. Sliding scale insulin should be sufficient. Hold Plavix secondary to possible upper GI bleed 8. Shock Unclear etiology of patient's persistent hypotension. Patient has been initiated on Levophed therapy. Empiric antibiotics will be started at this time given patient's pneumobilia, but no leukocytosis has been noted throughout hospitalization. TIME: 45 minutes critical care time spent addressing patient's acute kidney injury , upper GI bleed, metabolic acidosis, respiratory insufficiency, review of all data and collaboration with care team (5:30 AM to 8 AM) Code Visit 9xxxx: [id number] Critical care first hour
[2018-06-28 08:26] LABS: Bedside Glucose 97 mg/dL (70-110)
[2018-06-28] MEDS: HYDROcodone Bitartrate/Apap 5/325 Tablet PO (08:44)
--- NOTE | 2018-06-28 09:27 | PCM.PN.CARD ---
Subjectve: Patient doing well this morning, status post urgent DC cardioversion last evening for atrial fibrillation, RVR, and hypotension. Patient was successfully cardioverted with one shock, and is remained in sinus rhythm ever since. IV amiodarone drip infusing to preserve sinus rhythm. No chest pain symptoms. Hemodialysis performed yesterday without any difficulty. Echocardiogram performed yesterday showed hyperdynamic LV function with an EF of 75%, mild aortic insufficiency and mild aortic stenosis. Telemetry showed normal sinus rhythm with rare PVCs. Objective: Vital Signs Temp Pulse Resp BP Pulse Ox 98.1 F 74 15 121/67 H 100 06/28/18 08:00 06/28/18 09:00 06/28/18 09:00 06/28/18 09:00 06/28/18 09:00 Oxygen Flow Rate (L/min) 2 Oxygen Delivery Method Room Air Weight: 180 lb 15.992 oz Body Mass Index (BMI) 24.3 Intake and Output for Last 24 Hours 06/26/18 06/27/18 06/28/18 23:59 23:59 23:59 Intake Total 3852.5 / 3852.5 931.2 / 931.2 Output Total 700 / 700 250 / 250 Balance 3152.5 / 3152.5 681.2 / 681.2 General: Awake, Alert, Oriented x 3 HEENT: PERRL, EOMI, Sclera Non Icteric Neck: Supple, Good ROM, No Lymph Node Enlargement Lungs: Clear to auscultation Cardiovascular: Regular Rhythm, Normal S1, Normal S2, No Rubs, No Gallops Murmur Murmur: Grade 2/6, Early Diastolic Vascular: No Carotid Bruits, Normal Femoral Pulses, Normal Radial Pulses, Normal Dorsalis Pedal Pulse, Normal Posterior Tibial Pulses Abdomen: Bowel Sounds Present, Soft, Non Tender, No HSM, No Organomegaly Extremities: No Cyanosis, No Clubbing, No edema Neurological: No Focal Motor or Sensory Deficit 06/27/18 12:00: Hemoglobin A1c 5.6 06/27/18 12:00: Hgb 11.9 L, Hct 35.0 L 06/27/18 12:00: Troponin I 0.129 H 06/27/18 13:15: Urine Color Yellow, Urine Clarity Clear, Urine pH 5.0, Ur Specific [place] 1.015, Urine Protein 15 H, Urine Glucose (UA) Normal, Urine Ketones 5 H, Urine Occult Blood 10 H, Urine Nitrite Negative, Urine Bilirubin Negative, Urine Urobilinogen Normal, Ur Leukocyte Esterase Negative, Urine RBC 0-5 SEEN, Urine WBC 0 SEEN 06/27/18 15:10: Sodium 146 H, Potassium 5.7 H, Chloride 119 H, Carbon Dioxide 12.0 L, Anion Gap 15, BUN 156 H*, Creatinine 3.62 H, Est GFR (MDRD) Af Amer 22 L, Est GFR (MDRD) Non-Af 18 L, BUN/Creatinine Ratio 43.1 H, Glucose 94, Calcium 8.5 06/27/18 15:10: Hgb 11.6 L, Hct 34.6 L 06/27/18 15:10: Troponin I 0.155 H 06/27/18 18:10: Sodium 138, Potassium 4.0, Chloride 104, Carbon Dioxide 21.0, Anion Gap 13, BUN 85 H, Creatinine 2.05 H, Est GFR (MDRD) Af Amer 41 L, Est GFR (MDRD) Non-Af 34 L, BUN/Creatinine Ratio 41.5 H, Glucose 123 H, Calcium 7.5 L, Troponin I 0.175 H 06/27/18 18:10: Hgb 11.2 L, Hct 32.7 L 06/27/18 18:42: pH 7.50 H, Bicarbonate Actual 18.8 L, POC Total CO2 19, Base Excess -4 L, O2 Saturation 98, ABG pCO2 24.0 L, ABG pO2 95, Steven Test NA 06/27/18 22:40: Hgb 10.0 L, Hct 29.5 L 06/28/18 04:20: WBC 8.6, RBC 3.20 L, Hgb 10.1 L, Hct 29.7 L, MCV 92.8, MCH 31.6, MCHC 34.0, RDW 13.3, RDW Differential 43.6, Plt Count 145 L, MPV 11.6, Immature Gran % (Auto) 0.800, Neut % (Auto) 66.5, Lymph % (Auto) 13.2 L, [place] % (Auto) 14.1 H, Eos % (Auto) 5.2 H, Baso % (Auto) 0.2, Absolute Neuts (auto) 5.7, Total Counted Not Reportable 06/28/18 04:20: Sodium 143, Potassium 4.3, Chloride 108 H, Carbon Dioxide 21.0, Anion Gap 14, BUN 79 H, Creatinine 2.13 H, Est GFR (MDRD) Af Amer 40 L, Est GFR (MDRD) Non-Af 33 L, BUN/Creatinine Ratio 37.1 H, Glucose 91, Calcium 7.7 L, Total Bilirubin 0.40 Rhythm: EKG: ECHO: Stress Test: Cardiac Cath: PCI: CT Surgery: Holter monitor: EPS: PPM: CXR: Chest CT Scan: Medical Necessity - Tobacco Use Smoking Status: Former smoker Assessment/Plan 1. Coronary artery disease: Patient has no anginal symptoms at this time despite his tachycardia and his abnormal troponin. Patient has acute renal failure at this time and requires urgent hemodialysis for both hyperkalemia, and decreased urine output. Would not recommend pursuing catheterization at this time. He has known coronary disease with stents to his LAD. Would recommend and consider a noninvasive stress test once his acute event has resolved. Only if the patient has evidence of anterior ischemia would I consider repeat catheterization. This morning, now that the dust has settled, the patient admits to coffee-ground emesis in the recent past. This may be related to upper GI bleeding. Would recommend holding his baby aspirin but continuing his Plavix at this time. Patient may require a diagnostic EGD for evaluation. Would recommend consulting surgery. Continue PPI. Would recommend keeping his hemoglobin above 10.0 in light of his recent non-STEMI. 2. Acute renal failure: Would recommend holding his spironolactone as well as his lisinopril. Hemodialysis performed yesterday, without complication. Potassium is now 4.3, and creatinine is 2.3. Right femoral venous sheath in place without evidence of infection, swelling, or tenderness. 3. Atrial fibrillation: Patient required urgent synchronized DC cardioversion last evening for hypotension and tachycardia. Patient converted to normal sinus rhythm on a single shock without difficulty and is remained in sinus rhythm ever since. Recommend continuing his IV amiodarone until the bag is been completed. Would not recommend p.o. ambulate this time. In addition now that he is more stabilized would recommend starting him on low-dose beta-becky therapy such as Lopressor 12.5 mg p.o. twice daily. The patient was on Lopressor 50 mg p.o. twice daily. 4. Hyperlipidemia: We will obtain fasting lipid profile. Hold on Pravachol for now. 5. Discussed with Dr. Whitehead. Thank you very much for the opportunity to participate in the cardiac care of your patient. Would recommend continuing ICU management until EGD is been completed. Code Visit Inpatient E&M: 31558 Subs Hosp L2
--- NOTE | 2018-06-28 10:49 | CASEMGMT ---
Face to Face with patient for initial transition planning/care coordination assessment. RN COLLEEN introduced self and role at [facility], pt voices understanding and consents to assessment at this time. Pt is lying in bed in no distress at this time. Pt is A/O x4 at this time and answers all questions appropriately at this time. Care providers, pharmacy, and demographics verified. See attached link. Pt voices no further concerns/needs at this time. Advised pt to ask for CM if any further questions/concerns/needs arise, voices understanding. CM to follow for any further discharge planning/needs. PLAN: Home, pending PT/OT yoni Rousseau RN, CM
[2018-06-28] MEDS: CHLORHEXIDINE GLUC 2% CLOTH 1 EACH TOWELETTE TOPICAL (11:18)
--- NOTE | 2018-06-28 11:47 | PCM.PROGNOTE ---
Patient Problems: Active and Suspected Problems (Last Updated 12/20/17 @ 12:08 by Samanta Cabrera) Syncope (Acute) Atrial fibrillation with RVR (Acute) Hyperkalemia (Acute) Acute renal failure (Acute) Subjective: Chief complaint: Follow-up after admission for acute renal failure, uremia, metabolic acidosis, hyperkalemia, new onset A. fib with RVR and probable GI bleed. Patient seen and examined. No acute events overnight. Patient has been hypotensive and remained on IV Levophed drip but at low dose. He remained in sinus rhythm, has been on IV amiodarone drip. He denied chest pain or shortness of breath. Denied abdominal pain, nausea vomiting. He is afebrile, heart has been stable and in sinus rhythm, blood pressure is maintained on Levophed, pulse ox is normal on room air. - Physical Exam General: Alert, Oriented x3, Cooperative, No apparent distress HEENT: Atraumatic, PERRLA, EOMI, Normocephalic Oral: Moist Mucosa, No Gingival or Mucosal Lesions/ Ulcerations Neck: Supple, No JVD, Negative Carotid Bruits, Trachea Midline, Thyroid Normal Size and Texture Lungs: Clear to auscultation, No rhonchi, No wheeze, No rales, Diminished Cardiovascular: Regular rate, Regular Rhythm, Normal S1, Normal S2, PMI Normal Abdomen: Bowel Sounds Present, Soft, Non Tender, Non-Distended, No Hepato-splenomegaly Extremities: No clubbing, No cyanosis, No edema Skin: No rashes, No breakdown Lymphatic: No Cervical, Supraclavicular, or Inguinal Adenopathy Neurological: Cranial nerves II-XII grossly intact, Motor Exam 5/5 strength throughout Psych/Mental Status: Normal Affect, Appropriate, Alert and oriented to time, place, person, mood and affect Vital Signs Temp Pulse Resp BP Pulse Ox 98.2 F 72 15 121/49 H 100 06/28/18 10:00 06/28/18 11:42 06/28/18 11:00 06/28/18 11:44 06/28/18 11:00 Oxygen Flow Rate (L/min) 2 Oxygen Delivery Method Room Air Weight: 180 lb 15.992 oz Body Mass Index (BMI) 24.3 Intake and Output for Last 24 Hours 06/26/18 06/27/18 06/28/18 23:59 23:59 23:59 Intake Total 3852.5 / 3852.5 2075.2 / 2075.2 Output Total 700 / 700 450 / 450 Balance 3152.5 / 3152.5 1625.2 / 1625.2 Laboratory Tests Past 24 Hrs 06/27/18 06/27/18 06/27/18 10:30 12:00 12:00 WBC RBC Hgb Hct MCV MCH MCHC RDW RDW Differential Plt Count MPV Immature Gran % (Auto) Neut % (Auto) Lymph % (Auto) [place] % (Auto) Eos % (Auto) Baso % (Auto) Absolute Neuts (auto) Absolute Lymphs (auto) Total Counted Specimen Type Sample Site pH Bicarbonate Actual POC Total CO2 Base Excess O2 Saturation ABG pCO2 ABG pO2 Steven Test O2 Delivery Device Blood Gas Notified Whom Blood Gas Notified Time Sodium Potassium Chloride Carbon Dioxide Anion Gap BUN Creatinine Estim Creat Clear Calc Est GFR (MDRD) Af Amer Est GFR (MDRD) Non-Af BUN/Creatinine Ratio Glucose Hemoglobin A1c 5.6 Calcium Total Bilirubin AST ALT Alkaline Phosphatase Troponin I Total Protein Albumin Globulin Albumin/Globulin Ratio TSH 1.21 Urine Color Urine Clarity Urine pH Ur Specific [place] Urine Protein Urine Glucose (UA) Urine Ketones Urine Occult Blood Urine Nitrite Urine Bilirubin Urine Urobilinogen Ur Leukocyte Esterase Urine RBC Urine WBC Ur Squamous Epith Cells Urine Bacteria Hyaline Casts Urine Mucus Ur Random Sodium Urine Creatinine MRSA (PCR) Negative 06/27/18 06/27/18 06/27/18 12:00 12:00 13:15 WBC RBC Hgb 11.9 L Hct 35.0 L MCV MCH MCHC RDW RDW Differential Plt Count MPV Immature Gran % (Auto) Neut % (Auto) Lymph % (Auto) [place] % (Auto) Eos % (Auto) Baso % (Auto) Absolute Neuts (auto) Absolute Lymphs (auto) Total Counted Specimen Type Sample Site pH Bicarbonate Actual POC Total CO2 Base Excess O2 Saturation ABG pCO2 ABG pO2 Steven Test O2 Delivery Device Blood Gas Notified Whom Blood Gas Notified Time Sodium Potassium Chloride Carbon Dioxide Anion Gap BUN Creatinine Estim Creat Clear Calc Est GFR (MDRD) Af Amer Est GFR (MDRD) Non-Af BUN/Creatinine Ratio Glucose Hemoglobin A1c Calcium Total Bilirubin AST ALT Alkaline Phosphatase Troponin I 0.129 H Total Protein Albumin Globulin Albumin/Globulin Ratio TSH Urine Color Yellow Urine Clarity Clear Urine pH 5.0 Ur Specific [place] 1.015 Urine Protein 15 H Urine Glucose (UA) Normal Urine Ketones 5 H Urine Occult Blood 10 H Urine Nitrite Negative Urine Bilirubin Negative Urine Urobilinogen Normal Ur Leukocyte Esterase Negative Urine RBC 0-5 SEEN Urine WBC 0 SEEN Ur Squamous Epith Cells 0-5 SEEN Urine Bacteria 0 SEEN Hyaline Casts 0-5 SEEN Urine Mucus 0 SEEN Ur Random Sodium Urine Creatinine MRSA (PCR) 06/27/18 06/27/18 06/27/18 13:15 13:15 15:10 WBC RBC Hgb Hct MCV MCH MCHC RDW RDW Differential Plt Count MPV Immature Gran % (Auto) Neut % (Auto) Lymph % (Auto) [place] % (Auto) Eos % (Auto) Baso % (Auto) Absolute Neuts (auto) Absolute Lymphs (auto) Total Counted Specimen Type Sample Site pH Bicarbonate Actual POC Total CO2 Base Excess O2 Saturation ABG pCO2 ABG pO2 Steven Test O2 Delivery Device Blood Gas Notified Whom Blood Gas Notified Time Sodium 146 H Potassium 5.7 H Chloride 119 H Carbon Dioxide 12.0 L Anion Gap 15 BUN 156 H* Creatinine 3.62 H Estim Creat Clear Calc 20.84 Est GFR (MDRD) Af Amer 22 L Est GFR (MDRD) Non-Af 18 L BUN/Creatinine Ratio 43.1 H Glucose 94 Hemoglobin A1c Calcium 8.5 Total Bilirubin AST ALT Alkaline Phosphatase Troponin I Total Protein Albumin Globulin Albumin/Globulin Ratio TSH Urine Color Urine Clarity Urine pH Ur Specific [place] Urine Protein Urine Glucose (UA) Urine Ketones Urine Occult Blood Urine Nitrite Urine Bilirubin Urine Urobilinogen Ur Leukocyte Esterase Urine RBC Urine WBC Ur Squamous Epith Cells Urine Bacteria Hyaline Casts Urine Mucus Ur Random Sodium 23 Urine Creatinine 155.00 MRSA (PCR) 06/27/18 06/27/18 06/27/18 15:10 15:10 18:10 WBC RBC Hgb 11.6 L Hct 34.6 L MCV MCH MCHC RDW RDW Differential Plt Count MPV Immature Gran % (Auto) Neut % (Auto) Lymph % (Auto) [place] % (Auto) Eos % (Auto) Baso % (Auto) Absolute Neuts (auto) Absolute Lymphs (auto) Total Counted Specimen Type Sample Site pH Bicarbonate Actual POC Total CO2 Base Excess O2 Saturation ABG pCO2 ABG pO2 Steven Test O2 Delivery Device Blood Gas Notified Whom Blood Gas Notified Time Sodium 138 Potassium 4.0 Chloride 104 Carbon Dioxide 21.0 Anion Gap 13 BUN 85 H Creatinine 2.05 H Estim Creat Clear Calc 36.80 Est GFR (MDRD) Af Amer 41 L Est GFR (MDRD) Non-Af 34 L BUN/Creatinine Ratio 41.5 H Glucose 123 H Hemoglobin A1c Calcium 7.5 L Total Bilirubin AST ALT Alkaline Phosphatase Troponin I 0.155 H 0.175 H Total Protein Albumin Globulin Albumin/Globulin Ratio TSH Urine Color Urine Clarity Urine pH Ur Specific [place] Urine Protein Urine Glucose (UA) Urine Ketones Urine Occult Blood Urine Nitrite Urine Bilirubin Urine Urobilinogen Ur Leukocyte Esterase Urine RBC Urine WBC Ur Squamous Epith Cells Urine Bacteria Hyaline Casts Urine Mucus Ur Random Sodium Urine Creatinine MRSA (PCR) 06/27/18 06/27/18 06/27/18 18:10 18:42 22:40 WBC RBC Hgb 11.2 L 10.0 L Hct 32.7 L 29.5 L MCV MCH MCHC RDW RDW Differential Plt Count MPV Immature Gran % (Auto) Neut % (Auto) Lymph % (Auto) [place] % (Auto) Eos % (Auto) Baso % (Auto) Absolute Neuts (auto) Absolute Lymphs (auto) Total Counted Specimen Type ART Sample Site L Radial pH 7.50 H Bicarbonate Actual 18.8 L POC Total CO2 19 Base Excess -4 L O2 Saturation 98 ABG pCO2 24.0 L ABG pO2 95 Steven Test NA O2 Delivery Device Room Air Blood Gas Notified Whom ICU MD Blood Gas Notified Time 1838 Sodium Potassium Chloride Carbon Dioxide Anion Gap BUN Creatinine Estim Creat Clear Calc Est GFR (MDRD) Af Amer Est GFR (MDRD) Non-Af BUN/Creatinine Ratio Glucose Hemoglobin A1c Calcium Total Bilirubin AST ALT Alkaline Phosphatase Troponin I Total Protein Albumin Globulin Albumin/Globulin Ratio TSH Urine Color Urine Clarity Urine pH Ur Specific [place] Urine Protein Urine Glucose (UA) Urine Ketones Urine Occult Blood Urine Nitrite Urine Bilirubin Urine Urobilinogen Ur Leukocyte Esterase Urine RBC Urine WBC Ur Squamous Epith Cells Urine Bacteria Hyaline Casts Urine Mucus Ur Random Sodium Urine Creatinine MRSA (PCR) 06/28/18 06/28/18 04:20 04:20 WBC 8.6 RBC 3.20 L Hgb 10.1 L Hct 29.7 L MCV 92.8 MCH 31.6 MCHC 34.0 RDW 13.3 RDW Differential 43.6 Plt Count 145 L MPV 11.6 Immature Gran % (Auto) 0.800 Neut % (Auto) 66.5 Lymph % (Auto) 13.2 L [place] % (Auto) 14.1 H Eos % (Auto) 5.2 H Baso % (Auto) 0.2 Absolute Neuts (auto) 5.7 Absolute Lymphs (auto) 1.14 Total Counted Not Reportable Specimen Type Sample Site pH Bicarbonate Actual POC Total CO2 Base Excess O2 Saturation ABG pCO2 ABG pO2 Steven Test O2 Delivery Device Blood Gas Notified Whom Blood Gas Notified Time Sodium 143 Potassium 4.3 Chloride 108 H Carbon Dioxide 21.0 Anion Gap 14 BUN 79 H Creatinine 2.13 H Estim Creat Clear Calc 35.42 Est GFR (MDRD) Af Amer 40 L Est GFR (MDRD) Non-Af 33 L BUN/Creatinine Ratio 37.1 H Glucose 91 Hemoglobin A1c Calcium 7.7 L Total Bilirubin 0.40 AST 24 ALT 20 Alkaline Phosphatase 44 L Troponin I Total Protein 5.5 L Albumin 2.8 L Globulin 2.7 Albumin/Globulin Ratio 1.0 TSH Urine Color Urine Clarity Urine pH Ur Specific [place] Urine Protein Urine Glucose (UA) Urine Ketones Urine Occult Blood Urine Nitrite Urine Bilirubin Urine Urobilinogen Ur Leukocyte Esterase Urine RBC Urine WBC Ur Squamous Epith Cells Urine Bacteria Hyaline Casts Urine Mucus Ur Random Sodium Urine Creatinine MRSA (PCR) POC Glucose 06/28/18 06/27/18 06/27/18 08:03 21:35 16:55 POC Glucose 97 100 92 Clinical Impression(s) from Imaging Studies Chest X-Ray 06/27/18 08:38 IMPRESSION: Hyperinflation. The lungs are clear. Electronically Signed: Blade Myles MD at 9:04 EDT Tel [phone], Service support , Pelvis X-Ray 06/27/18 08:45 IMPRESSION: No fracture is seen. Electronically Signed: Blade Myles MD at 9:03 EDT Tel [phone], Service support , Renal Ultrasound 06/27/18 10:59 IMPRESSION: A small 1.8 cm cyst from the left kidney. No hydronephrosis on either side. A Solorzano's catheter is in the urinary bladder Electronically Signed: Brandt Deras, at 23:51 EDT Tel , Service support , Chest X-Ray 06/27/18 13:23 IMPRESSION: Hyperinflation. No acute abnormality is seen. Electronically Signed: Blade Myles MD at 14:12 EDT Tel [phone], Service support , Abdomen/Pelvis CT 06/28/18 10:50 IMPRESSION: Pneumobilia. No gallstones. Calcifications within the kidneys but these are deemed to be vascular in origin. No acute appendicitis or diverticulitis Electronically Signed: Brandt Deras, at 1:38 EDT Tel , Service support , Medical Necessity - Tobacco Use Smoking Status: Former smoker Assessment/Plan All Active Problems (Last Updated 12/20/17 @ 12:08 by Samanta Cabrera) Syncope (Acute) Atrial fibrillation with RVR (Acute) Hyperkalemia (Acute) Acute renal failure (Acute) This is a 68 years old male patient presented to the emergency room because of syncope, found to have acute renal failure complicated by uremia and metabolic acidosis as well as hyperkalemia and while in the ER, he went into A. fib with RVR which is new to him and also found to have borderline elevated troponin. Also, patient complains of melena. #1 acute renal failure/uremia/metabolic acidosis: Status post hemodialysis ?1. BUN is down to 79, creatinine is down to 2.13. Urine output is low. Kidney ultrasound revealed normal-sized left and right kidney without evidence of hydronephrosis, hydroureter or stones. CT scan abdomen and pelvis without contrast revealed pneumobilia, no other acute findings. Patient was started on meropenem IV empirically for pneumobilia. This acute renal failure is attributed to prerenal azotemia versus ATN from hypoperfusion. Nephrology on the case. Plan to continue IV fluids, vasopressors, repeat BMP tomorrow morning, no dialysis for 2 days, reassess tomorrow for need of repeat hemodialysis. #2 hyperkalemia: Secondary to above. Status post hemodialysis, potassium is back to normal. Serum phosphorus and magnesium are slightly elevated. Plan as above. #3 new onset A. fib with RVR: Status post cardioversion, currently on IV amiodarone drip. He is back to sinus rhythm and remained in sinus rhythm since yesterday evening, rate is controlled, blood pressure is maintained on IV Levophed drip as above. 2D echocardiogram revealed ejection fraction 75%, mild aortic stenosis. He is not on anticoagulation because of melena. Cardiology on the case, plan to continue same treatment for now. #4 borderline elevated troponin: Likely due to acute renal failure in addition to A. fib with RVR or possible underlying CAD. Patient remained without chest pain. Troponin is indeterminate and flat. Patient does have history of CAD status post stents. 2D echocardiogram reviewed as above. Cardiology on the case, recommended noninvasive testing when appropriate. #5 GI bleed/melena: Patient reported black stool for the last couple of days. He has been on Plavix as well as aspirin. Stool for occult blood ordered. He is on IV Protonix twice daily. General surgery consulted for upper EGD. #6 CAD status post stents: Plan as above, aspirin, Plavix and statins as well as losartan held. #7 hypertension: Patient has been on Levophed drip because of hypotension. His antihypertensive medications held at this time. #8 hyperlipidemia: Continue statins. #9 diet-controlled type 2 diabetes mellitus: Patient is not on any diabetic medications at home. His blood sugar has been stable. He is only on sliding scale. Hemoglobin A1c is 5.6. #10 DVT prophylaxis: SCDs. #11 CODE STATUS: Full code. This is discussed with the patient by Dr. Whitehead, radiological technologist. This note was generated with [employer] software. It may contain incorrect words, spelling, and punctuation that were not noted in checking the note before signing. Code Visit Inpatient E&M: 11997 Subs Hosp L3
--- NOTE | 2018-06-28 12:09 | PCM.CONS.GEN ---
Problem List (1) Pneumobilia Status: Acute Reason for Consult Date of Consultation: 06/28/18 History of Present Illness: The patient is a 68 year old M, with past medical history significant for reported coronary artery disease, COPD, GERD, diet-controlled diabetes mellitus type 2, hypertension, hypercholesterolemia and nonrheumatic valvular disease, who presented to [facility] on 06/27/2018 following a syncopal event. Patient is unclear on total time of unconsciousness, but assumes it may have been 30 minutes or more. Patient had reportedly been walking to the restroom and passed out. Patient reportedly had no prodrome prior to passing out, but has noted some chills, shortness of breath, black stools and weakness over the last 2-3 days. On presentation to the emergency room, patient was noted to be 82% on room air with a systolic blood pressure of approximately 100. Patient reportedly does take Plavix at baseline, but no anticoagulant therapy. Patient denies any NSAID use at baseline. While in the emergency room, patient did have an ABG to confirm oxygenation. Patient was also noted to be in A. fib with RVR, which is reportedly new to the patient. On telemetry, patient was noted to have heart rates between 130 bpm and 160 bpm. There was some concern for torsades, so a magnesium infusion was ordered. Laboratory data showed an elevated BUN of 184 and a creatinine of 4.76. Patient was admitted to the intensive care unit for need of emergent hemodialysis. Patient reports he has had issues with BPH in the past, but is never had renal dysfunction that he is aware of. Patient denies any history of cardiac arrhythmias, but does have coronary artery disease and is on Plavix therapy at baseline. Patient does not report using supplemental oxygen at baseline. CT scan of his abdomen and pelvis was done secondary to his acute renal failure this showed: IMPRESSION: Pneumobilia. No gallstones. Calcifications within the kidneys but these are deemed to be vascular in origin. No acute appendicitis or diverticulitis Patient states that many years ago he underwent an upper endoscopy is unsure whether or not he had an ERCP at that time. Reviewing of the records does show that he did see Dr. Newberry in 2002. However I am unable to retrieve any of the medical records from the optical disc at this time. Past Medical History Past Medical History (Chronic Problems): Chronic Problems (Last Updated 12/20/17 @ 12:08 by Samanta Cabrera) Hypertension (Chronic) Peripheral vascular occlusive disease (Chronic) Type 2 diabetes mellitus without complications (Chronic) Non-rheumatic tricuspid valve insufficiency (Chronic) Nonrheumatic aortic valve insufficiency (Chronic) History of coronary artery stent placement (Chronic ~01/05/03) Stent X 2 Mid LAD @ [facility] 01/05/2003, Atherosclerosis of coronary artery of [place] heart without angina pectoris (Chronic) Hyperlipidemia (Chronic) Medical History: Medical History (Last Reviewed 06/28/18 @ 12:15 by Pop Stahl MD) Hypertension (Chronic) I10 Peripheral vascular occlusive disease (Chronic) I73.9 Type 2 diabetes mellitus without complications (Chronic) E11.9 Non-rheumatic tricuspid valve insufficiency (Chronic) I36.1 Nonrheumatic aortic valve insufficiency (Chronic) I35.1 Atherosclerosis of coronary artery of [place] heart without angina pectoris (Chronic) I25.10 Hyperlipidemia (Chronic) E78.5 Agent orange exposure Z77.098 COPD (chronic obstructive pulmonary disease) J44.9 Carotid stenosis I65.29 Chronic fatigue disorder R53.82 Esophagitis K20.9 Allergies acetaminophen [From Darvocet-N] Allergy (Unknown, Verified 06/27/18 08:25) Unknown amitriptyline HCl [From Elavil] Allergy (Unknown, Verified 06/27/18 08:25) Unknown atorvastatin calcium [From Lipitor] Allergy (Unknown, Verified 06/27/18 08:25) Unknown azithromycin [From Zithromax] Allergy (Unknown, Verified 06/27/18 08:25) Unknown cefaclor [Cefaclor] Allergy (Unknown, Verified 06/27/18 08:25) Unknown ciprofloxacin [From Cipro] Allergy (Unknown, Verified 06/27/18 08:25) Unknown ciprofloxacin HCl [From Cipro] Allergy (Unknown, Verified 06/27/18 08:25) Unknown hydroxyzine HCl [From Atarax] Allergy (Unknown, Verified 06/27/18 08:25) Unknown influenza virus vaccine, specific [Influenza Virus Vacc,Specific] Allergy (Unknown, Verified 06/27/18 08:25) Unknown iodine Allergy (Unknown, Verified 06/27/18 08:25) Unknown latex Allergy (Unknown, Verified 06/27/18 08:25) Unknown levofloxacin [From Levaquin] Allergy (Unknown, Verified 06/27/18 08:25) Unknown lidocaine Allergy (Unknown, Verified 06/27/18 08:25) Unknown lovastatin Allergy (Unknown, Verified 06/27/18 08:25) Unknown niacin Allergy (Unknown, Verified 06/27/18 08:25) Unknown Penicillins Allergy (Unknown, Verified 06/27/18 08:25) Unknown pneumococcal vaccine [Pneumococcal Vaccine] Allergy (Unknown, Verified 06/27/18 08:25) Unknown propoxyphene napsylate [From Darvocet-N] Allergy (Unknown, Verified 06/27/18 08:25) Unknown quinapril HCl [From Accupril] Allergy (Unknown, Verified 06/27/18 08:25) Unknown red dye Allergy (Unknown, Verified 06/27/18 08:25) Unknown rosuvastatin calcium [From Crestor] Allergy (Unknown, Verified 06/27/18 08:25) Unknown simvastatin Allergy (Unknown, Verified 06/27/18 08:25) Unknown Sulfa (Sulfonamide Antibiotics) Allergy (Unknown, Verified 06/27/18 08:25) Unknown Tetanus Vaccines and Toxoid [Tetanus Vaccines & Toxoid] Allergy (Unknown, Verified 06/27/18 08:25) Unknown tetracycline [Tetracycline] Allergy (Unknown, Verified 06/27/18 08:25) Unknown yellow dye Allergy (Unknown, Verified 06/27/18 08:25) Unknown fentanyl Allergy (Verified 06/27/18 16:12) Unknown hydrochlorothiazide Allergy (Verified 06/27/18 08:25) Unknown CREATINE MONOHYDRATE Allergy (Unknown, Uncoded 06/27/18 08:25) Unknown Home Medications: Ambulatory Orders Medication Instructions Recorded Albuterol Inhaler [Ventolin Hfa] 2 puff INHALATION PRN PRN 08/23/14 Aspirin [Aspirin, Baby] 81 mg PO DAILY@0800 08/23/14 Clopidogrel Bisulfate [Plavix] 75 mg PO DAILY 08/23/14 Hydrocodone/Acetaminophen 1 tab PO DAILY 08/23/14 [Hydrocodon-Acetaminophn 10-325] Pravastatin [Pravachol] 40 mg PO QHS 08/23/14 Metoprolol Tartrate [Lopressor 50 mg PO BID 02/17/15 (Beta Bere)] Nitroglycerin [Nitrolingual [place]] 0.4 mg SUBLINGUAL Q5M PRN 02/17/15 Losartan Potassium [Cozaar] 25 mg PO DAILY 08/21/17 Spironolactone [Aldactone] 25 mg PO DAILY 08/21/17 Surgical History: Surgical History (Last Reviewed 06/28/18 @ 12:15 by Pop Stahl MD) History of coronary artery stent placement (Chronic) Onset Date: ~01/05/03 Z95.5 Stent X 2 Mid LAD @ [facility] 01/05/2003, History of right and left heart catheterization Onset Date: ~02/18/15 Z98.890 Occluded RCA, Patent LAD Stents Surgical History: coronary artery stents Lives: Spouse/ Significant Other Smoking Status: Former smoker Alcohol: None Drugs: None - *Family History Paternal Family History: Family History (Last Updated 12/20/17 @ 12:09 by Samanta Cabrera) Father CAD (coronary artery disease) Mother CAD (coronary artery disease) Brother CAD (coronary artery disease) History Items: No pertinent history Maternal Family History: Family History (Last Updated 12/20/17 @ 12:09 by Samanta Cabrera) Father CAD (coronary artery disease) Mother CAD (coronary artery disease) Brother CAD (coronary artery disease) History Items: Heart Disease Review of Systems Gastrointestinal: Denies: Abdominal Pain, Constipation, Diarrhea, Hematemesis, Nausea, Melena, Vomiting Patient Problems: Active and Suspected Problems (Last Updated 12/20/17 @ 12:08 by Samanta Cabrera) Pneumobilia (Acute) Syncope (Acute) Atrial fibrillation with RVR (Acute) Hyperkalemia (Acute) Acute renal failure (Acute) - Physical Exam General: Alert, Oriented x3 Lungs: Clear to auscultation Cardiovascular: Regular rate, Regular Rhythm, No murmurs Abdomen: Bowel Sounds Present, Soft, Non Tender, Non-Distended Vital Signs Temp Pulse Resp BP Pulse Ox 98.2 F 72 15 121/49 H 100 06/28/18 10:00 06/28/18 11:42 06/28/18 11:00 06/28/18 11:44 06/28/18 11:00 Oxygen Flow Rate (L/min) 2 Oxygen Delivery Method Room Air Weight: 180 lb 15.992 oz Body Mass Index (BMI) 24.3 Intake and Output for Last 24 Hours 06/26/18 06/27/1806/28/18 23:59 23:59 23:59 Intake Total 3852.5 / 3852.5 2075.2 / 2075.2 Output Total 700 / 700 450 / 450 Balance 3152.5 / 3152.5 1625.2 / 1625.2 Laboratory Tests Past 24 Hrs 06/27/18 06/27/18 06/27/18 10:30 12:00 12:00 WBC RBC Hgb Hct MCV MCH MCHC RDW RDW Differential Plt Count MPV Immature Gran % (Auto) Neut % (Auto) Lymph % (Auto) [place] % (Auto) Eos % (Auto) Baso % (Auto) Absolute Neuts (auto) Absolute Lymphs (auto) Total Counted Specimen Type Sample Site pH Bicarbonate Actual POC Total CO2 Base Excess O2 Saturation ABG pCO2 ABG pO2 Steven Test O2 Delivery Device Blood Gas Notified Whom Blood Gas Notified Time Sodium Potassium Chloride Carbon Dioxide Anion Gap BUN Creatinine Estim Creat Clear Calc Est GFR (MDRD) Af Amer Est GFR (MDRD) Non-Af BUN/Creatinine Ratio Glucose Hemoglobin A1c 5.6 Calcium Total Bilirubin AST ALT Alkaline Phosphatase Troponin I Total Protein Albumin Globulin Albumin/Globulin Ratio TSH 1.21 Urine Color Urine Clarity Urine pH Ur Specific [place] Urine Protein Urine Glucose (UA) Urine Ketones Urine Occult Blood Urine Nitrite Urine Bilirubin Urine Urobilinogen Ur Leukocyte Esterase Urine RBC Urine WBC Ur Squamous Epith Cells Urine Bacteria Hyaline Casts Urine Mucus Ur Random Sodium Urine Creatinine MRSA (PCR) Negative 06/27/18 06/27/18 06/27/18 12:00 12:00 13:15 WBC RBC Hgb 11.9 L Hct 35.0 L MCV MCH MCHC RDW RDW Differential Plt Count MPV Immature Gran % (Auto) Neut % (Auto) Lymph % (Auto) [place] % (Auto) Eos % (Auto) Baso % (Auto) Absolute Neuts (auto) Absolute Lymphs (auto) Total Counted Specimen Type Sample Site pH Bicarbonate Actual POC Total CO2 Base Excess O2 Saturation ABG pCO2 ABG pO2 Steven Test O2 Delivery Device Blood Gas Notified Whom Blood Gas Notified Time Sodium Potassium Chloride Carbon Dioxide Anion Gap BUN Creatinine Estim Creat Clear Calc Est GFR (MDRD) Af Amer Est GFR (MDRD) Non-Af BUN/Creatinine Ratio Glucose Hemoglobin A1c Calcium Total Bilirubin AST ALT Alkaline Phosphatase Troponin I 0.129 H Total Protein Albumin Globulin Albumin/Globulin Ratio TSH Urine Color Yellow Urine Clarity Clear Urine pH 5.0 Ur Specific [place] 1.015 Urine Protein 15 H Urine Glucose (UA) Normal Urine Ketones 5 H Urine Occult Blood 10 H Urine Nitrite Negative Urine Bilirubin Negative Urine Urobilinogen Normal Ur Leukocyte Esterase Negative Urine RBC 0-5 SEEN Urine WBC 0 SEEN Ur Squamous Epith Cells 0-5 SEEN Urine Bacteria 0 SEEN Hyaline Casts 0-5 SEEN Urine Mucus 0 SEEN Ur Random Sodium Urine Creatinine MRSA (PCR) 06/27/18 06/27/18 06/27/18 13:15 13:15 15:10 WBC RBC Hgb Hct MCV MCH MCHC RDW RDW Differential Plt Count MPV Immature Gran % (Auto) Neut % (Auto) Lymph % (Auto) [place] % (Auto) Eos % (Auto) Baso % (Auto) Absolute Neuts (auto) Absolute Lymphs (auto) Total Counted Specimen Type Sample Site pH Bicarbonate Actual POC Total CO2 Base Excess O2 Saturation ABG pCO2 ABG pO2 Steven Test O2 Delivery Device Blood Gas Notified Whom Blood Gas Notified Time Sodium 146 H Potassium 5.7 H Chloride 119 H Carbon Dioxide 12.0 L Anion Gap 15 BUN 156 H* Creatinine 3.62 H Estim Creat Clear Calc 20.84 Est GFR (MDRD) Af Amer 22 L Est GFR (MDRD) Non-Af 18 L BUN/Creatinine Ratio 43.1 H Glucose 94 Hemoglobin A1c Calcium 8.5 Total Bilirubin AST ALT Alkaline Phosphatase Troponin I Total Protein Albumin Globulin Albumin/Globulin Ratio TSH Urine Color Urine Clarity Urine pH Ur Specific [place] Urine Protein Urine Glucose (UA) Urine Ketones Urine Occult Blood Urine Nitrite Urine Bilirubin Urine Urobilinogen Ur Leukocyte Esterase Urine RBC Urine WBC Ur Squamous Epith Cells Urine Bacteria Hyaline Casts Urine Mucus Ur Random Sodium 23 Urine Creatinine 155.00 MRSA (PCR) 06/27/18 06/27/18 06/27/18 15:10 15:10 18:10 WBC RBC Hgb 11.6 L Hct 34.6 L MCV MCH MCHC RDW RDW Differential Plt Count MPV Immature Gran % (Auto) Neut % (Auto) Lymph % (Auto) [place] % (Auto) Eos % (Auto) Baso % (Auto) Absolute Neuts (auto) Absolute Lymphs (auto) Total Counted Specimen Type Sample Site pH Bicarbonate Actual POC Total CO2 Base Excess O2 Saturation ABG pCO2 ABG pO2 Steven Test O2 Delivery Device Blood Gas Notified Whom Blood Gas Notified Time Sodium 138 Potassium 4.0 Chloride 104 Carbon Dioxide 21.0 Anion Gap 13 BUN 85 H Creatinine 2.05 H Estim Creat Clear Calc 36.80 Est GFR (MDRD) Af Amer 41 L Est GFR (MDRD) Non-Af 34 L BUN/Creatinine Ratio 41.5 H Glucose 123 H Hemoglobin A1c Calcium 7.5 L Total Bilirubin AST ALT Alkaline Phosphatase Troponin I 0.155 H 0.175 H Total Protein Albumin Globulin Albumin/Globulin Ratio TSH Urine Color Urine Clarity Urine pH Ur Specific [place] Urine Protein Urine Glucose (UA) Urine Ketones Urine Occult Blood Urine Nitrite Urine Bilirubin Urine Urobilinogen Ur Leukocyte Esterase Urine RBC Urine WBC Ur Squamous Epith Cells Urine Bacteria Hyaline Casts Urine Mucus Ur Random Sodium Urine Creatinine MRSA (PCR) 06/27/18 06/27/18 06/27/18 18:10 18:42 22:40 WBC RBC Hgb 11.2 L 10.0 L Hct 32.7 L 29.5 L MCV MCH MCHC RDW RDW Differential Plt Count MPV Immature Gran % (Auto) Neut % (Auto) Lymph % (Auto) [place] % (Auto) Eos % (Auto) Baso % (Auto) Absolute Neuts (auto) Absolute Lymphs (auto) Total Counted Specimen Type ART Sample Site L Radial pH 7.50 H Bicarbonate Actual 18.8 L POC Total CO2 19 Base Excess -4 L O2 Saturation 98 ABG pCO2 24.0 L ABG pO2 95 Steven Test NA O2 Delivery Device Room Air Blood Gas Notified Whom ICU Blood Gas Notified Time 1838 Sodium Potassium Chloride Carbon Dioxide Anion Gap BUN Creatinine Estim Creat Clear Calc Est GFR (MDRD) Af Amer Est GFR (MDRD) Non-Af BUN/Creatinine Ratio Glucose Hemoglobin A1c Calcium Total Bilirubin AST ALT Alkaline Phosphatase Troponin I Total Protein Albumin Globulin Albumin/Globulin Ratio TSH Urine Color Urine Clarity Urine pH Ur Specific [place] Urine Protein Urine Glucose (UA) Urine Ketones Urine Occult Blood Urine Nitrite Urine Bilirubin Urine Urobilinogen Ur Leukocyte Esterase Urine RBC Urine WBC Ur Squamous Epith Cells Urine Bacteria Hyaline Casts Urine Mucus Ur Random Sodium Urine Creatinine MRSA (PCR) 06/28/18 06/28/18 04:20 04:20 WBC 8.6 RBC 3.20 L Hgb 10.1 L Hct 29.7 L MCV 92.8 MCH 31.6 MCHC 34.0 RDW 13.3 RDW Differential 43.6 Plt Count 145 L MPV 11.6 Immature Gran % (Auto) 0.800 Neut % (Auto) 66.5 Lymph % (Auto) 13.2 L [place] % (Auto) 14.1 H Eos % (Auto) 5.2 H Baso % (Auto) 0.2 Absolute Neuts (auto) 5.7 Absolute Lymphs (auto) 1.14 Total Counted Not Reportable Specimen Type Sample Site pH Bicarbonate Actual POC Total CO2 Base Excess O2 Saturation ABG pCO2 ABG pO2 Steven Test O2 Delivery Device Blood Gas Notified Whom Blood Gas Notified Time Sodium 143 Potassium 4.3 Chloride 108 H Carbon Dioxide 21.0 Anion Gap 14 BUN 79 H Creatinine 2.13 H Estim Creat Clear Calc 35.42 Est GFR (MDRD) Af Amer 40 L Est GFR (MDRD) Non-Af 33 L BUN/Creatinine Ratio 37.1 H Glucose 91 Hemoglobin A1c Calcium 7.7 L Total Bilirubin 0.40 AST 24 ALT 20 Alkaline Phosphatase 44 L Troponin I Total Protein 5.5 L Albumin 2.8 L Globulin 2.7 Albumin/Globulin Ratio 1.0 TSH Urine Color Urine Clarity Urine pH Ur Specific [place] Urine Protein Urine Glucose (UA) Urine Ketones Urine Occult Blood Urine Nitrite Urine Bilirubin Urine Urobilinogen Ur Leukocyte Esterase Urine RBC Urine WBC Ur Squamous Epith Cells Urine Bacteria Hyaline Casts Urine Mucus Ur Random Sodium Urine Creatinine MRSA (PCR) POC Glucose 06/28/18 06/27/18 06/27/18 08:03 21:35 16:55 POC Glucose 97 100 92 Assessment/Plan All Active Problems (Last Updated 12/20/17 @ 12:08 by Samanta Cabrera) Pneumobilia (Acute) Syncope (Acute) Atrial fibrillation with RVR (Acute) Hyperkalemia (Acute) Acute renal failure (Acute) At this point I have no endoscopic needs. I think it would be worth our while to try to find any old records that may shed light on whether or not he had an ERCP. If he did in his pneumobilia would not be that much of an finding secondary to his fall. Since he is completely asymptomatic and his gallbladder does not look like a potential source of the pneumobilia we will hold off on an upper endoscopy on him.
[2018-06-28 12:51] LABS: Bedside Glucose 91 mg/dL (70-110)
[2018-06-28 14:07] LABS: Hematocrit 27.7 % (40-54); Hemoglobin 9.2 g/dl (13.0-16.5)
[2018-06-28 16:45] LABS: Bedside Glucose 99 mg/dL (70-110)
--- NOTE | 2018-06-28 21:48 | PCM.PN.REN ---
Patient Problems: Active and Suspected Problems (Last Reviewed 06/28/18 @ 12:15 by Pop Stahl MD) Pneumobilia (Acute) Syncope (Acute) Atrial fibrillation with RVR (Acute) Hyperkalemia (Acute) Acute renal failure (Acute) Subjective: Following for BLAYNE. Pt denies CP, SOB or nausea. He feels better overall. - Physical Exam General: Alert, Oriented x3 HEENT: Atraumatic, TM's Clear Oral: Moist Mucosa Neck: Supple Cardiovascular: Normal S1, Normal S2, No murmurs Abdomen: Bowel Sounds Present, Soft, Non Tender Extremities: No edema Vital Signs Temp Pulse Resp BP Pulse Ox 98.7 F 82 13 90/56 L 98 06/28/18 20:00 06/28/18 21:00 06/28/18 21:00 06/28/18 21:00 06/28/18 21:00 Oxygen Flow Rate (L/min) 2 Oxygen Delivery Method Room Air Weight: 82.1 kg Body Mass Index (BMI) 24.3 Intake and Output for Last 24 Hours 06/26/18 06/27/18 06/28/18 23:59 23:59 23:59 Intake Total 3852.5 / 3852.5 3508.2 / 3508.2 Output Total 700 / 700 900 / 900 Balance 3152.5 / 3152.5 2608.2 / 2608.2 Laboratory Tests Past 24 Hrs 06/27/18 06/28/18 06/28/18 22:40 04:20 04:20 WBC 8.6 RBC 3.20 L Hgb 10.0 L 10.1 L Hct 29.5 L 29.7 L MCV 92.8 MCH 31.6 MCHC 34.0 RDW 13.3 RDW Differential 43.6 Plt Count 145 L MPV 11.6 Immature Gran % (Auto) 0.800 Neut % (Auto) 66.5 Lymph % (Auto) 13.2 L [place] % (Auto) 14.1 H Eos % (Auto) 5.2 H Baso % (Auto) 0.2 Absolute Neuts (auto) 5.7 Absolute Lymphs (auto) 1.14 Total Counted Not Reportable Sodium 143 Potassium 4.3 Chloride 108 H Carbon Dioxide 21.0 Anion Gap 14 BUN 79 H Creatinine 2.13 H Estim Creat Clear Calc 35.42 Est GFR (MDRD) Af Amer 40 L Est GFR (MDRD) Non-Af 33 L BUN/Creatinine Ratio 37.1 H Glucose 91 Calcium 7.7 L Total Bilirubin 0.40 AST 24 ALT 20 Alkaline Phosphatase 44 L Total Protein 5.5 L Albumin 2.8 L Globulin 2.7 Albumin/Globulin Ratio 1.0 06/28/18 14:00 WBC RBC Hgb 9.2 L Hct 27.7 L MCV MCH MCHC RDW RDW Differential Plt Count MPV Immature Gran % (Auto) Neut % (Auto) Lymph % (Auto) [place] % (Auto) Eos % (Auto) Baso % (Auto) Absolute Neuts (auto) Absolute Lymphs (auto) Total Counted Sodium Potassium Chloride Carbon Dioxide Anion Gap BUN Creatinine Estim Creat Clear Calc Est GFR (MDRD) Af Amer Est GFR (MDRD) Non-Af BUN/Creatinine Ratio Glucose Calcium Total Bilirubin AST ALT Alkaline Phosphatase Total Protein Albumin Globulin Albumin/Globulin Ratio POC Glucose 06/28/18 06/28/18 06/28/18 16:40 12:44 08:03 POC Glucose 99 91 97 06/27/18 21:35 POC Glucose 100 Medical Necessity - Tobacco Use Smoking Status: Former smoker Assessment/Plan All Active Problems (Last Reviewed 06/28/18 @ 12:15 by Pop Stahl MD) Pneumobilia (Acute) Syncope (Acute) Atrial fibrillation with RVR (Acute) Hyperkalemia (Acute) Acute renal failure (Acute) 1. Acute kidney injury. Baseline SCr 1.03 mg/dL (August 2017). BLAYNE is likely due to prerenal azotemia from volume depletion. FENa was <1% yesterday. CT of abdomen did not show hydronephrosis though it did show renal vascular calcification. Pt has been on losartan and spironolactone which likely worsened renal function. Agree with IVF for continued volume repletion. Stop ARB and spironolactone. Will hold off on dialysis today. Recheck renal function again in am. Anticipate renal recovery. Meds are reviewed. 2. Hyperkalemia. Resolved with HD. Continue to hold ARB and aldosterone antagonist. Recheck K in am. 3. Metabolic acidosis. Improved with dialysis. Recheck HCO3 in am. 4. Shock. Probably hypovolemic shock. Improved. Off pressor. Hold BP meds. Give fluid. 5. Pneumobilia. Surgery evaluation.
[2018-06-28 22:06] LABS: Bedside Glucose 108 mg/dL (70-110)
[2018-06-29] VITALS (36 sets, daily range): BP systolic 87–146; BP diastolic 49–93; PULSE 62–80; RESP 12–19; TEMP 36.7–37.2; O2SAT 97–100
[2018-06-29] MEDS: 0.9% Normal Saline 1,000 ML 150 ML IV (04:50)
[2018-06-29 04:59] LABS: Absolute Lymphocyte Count 1.12 X10^3/ul (0.83-4.51); Absolute Neutrophil Count 3.4 X10^3/uL (2.0-7.7); Basophil# 0.02 X10^3/uL; Basophil% 0.4 % (0-1); Eosinophil# 0.37 X10^3/uL; Eosinophils% 6.5 % (0-5); Hematocrit 27.2 % (40-54); Hemoglobin 8.9 g/dl (13.0-16.5); Lymphocyte # 1.12 X10^3/ul (4.0); Lymphocyte % 19.7 % (19-41); Mean Corp Hgb Conc 32.7 g/gl (32-36); Mean Corpuscular Hgb 31.3 pg (27.0-32.0); Mean Corpuscular Volume 95.8 fL (80-94); Mean Platelet Vol. 11.4 fl (6.2-12.0); Monocyte# 0.77 X10^3/uL; Monocyte% 13.6 % (0-10); Neutrophil # 3.37 X10^3/uL (2.7-7.7); Neutrophil % 59.3 % (47-70); Platelet Count 110 K/mm3 (150-450); RBC Distribution Width CV 13.7 % (11.6-14.6); RBC Distribution Width SD 45.2 fl (35.1-43.9); Red Blood Count 2.84 M/mm3 (4.6-6.2); White Blood Count 5.7 K/mm3 (4.4-11.0)
[2018-06-29 05:09] LABS: AST(SGOT) 22 U/L (15-37); Alanine Aminotransfer ALT/SGPT 16 U/L (16-61); Albumin, Serum 2.4 g/dL (3.2-5.0); Alkaline Phosphatase 38 U/L (45-117); Anion Gap 11 (5-15); BUN 54 mg/dL (7-18); BUN/Creat Ratio 34.2 RATIO (10-20); Calcium,Total 7.6 mg/dL (8.5-10.1); Chloride 116 mmol/L (98-107); Creatinine, Serum 1.58 mg/dL (0.70-1.30); EST Glomerular Filtration Rate 46 mL/min (>60); Est Glom Filt Rate - Afr Amer 56 mL/min (>60); Estimated Creatinine Clearance 47.75 ml/min; Globulin 2.5 g/dL (2.2-4.2); Glucose 88 mg/dL (74-106); Potassium 4.4 mmol/L (3.5-5.1); Protein, Total 4.9 g/dL (6.4-8.2); Sodium Level 148 mmol/L (136-145)
[2018-06-29 05:18] LABS: POSITIVE COUNT NO; POSITIVE DIFFERENTIAL NO; POSITIVE MORPHOLOGY NO
--- NOTE | 2018-06-29 06:23 | PCM.PN.INT ---
Subjective: Patient did okay overnight. Patient reportedly did have some confusion and was on Levophed at low doses throughout the evening. This has been discontinued this morning. Patient does report the onset of a productive cough and some shortness of breath. Patient has been making urine. No bowel movements, coffee ground emesis or hematemesis has been reported. Patient was placed on low-dose nasal cannula oxygen with subjective improvement. No rash or other allergic reaction was noted to the initiation of meropenem General: Alert, Oriented x3, Cooperative, No apparent distress, - - Color improved today. Speaking in full sentences. HEENT: Atraumatic, PERRLA, EOMI, Normocephalic, - - No scleral icterus or injection noted. Oral: Moist Mucosa, No Gingival or Mucosal Lesions/ Ulcerations, - - Poor dentition Neck: Supple, No JVD, No Nodes, Trachea Midline Lungs: No wheeze, No rales, Diminished, Rhonchi - Improved with coughing, - - Symmetric expansion. No dullness to percussion. Cardiovascular: Regular rate, Regular Rhythm, Normal S1, Normal S2, No murmurs, No rub noted, No Gallop Abdomen: Bowel Sounds Present, Soft, Non Tender, Non-Distended Extremities: No clubbing, No cyanosis, No edema, Capillary Refill Less than 3 Seconds Skin: No rashes, No breakdown Musculoskeletal: No Tenderness to Palpation of Joints or Extremities Lymphatic: No Cervical, Supraclavicular, or Inguinal Adenopathy Neurological: Cranial nerves II-XII grossly intact, Neuro grossly intact, Motor Exam 5/5 strength throughout Psych/Mental Status: Alert and oriented to time, place, person, mood and affect Vital Signs Temp Pulse Resp BP Pulse Ox 37.1 C 67 16 146/74 H 99 06/29/18 04:00 06/29/18 05:00 06/29/18 05:00 06/29/18 05:00 06/29/18 05:00 Oxygen Flow Rate (L/min) 1 Oxygen Delivery Method Nasal Cannula Weight: 84.6 kg Body Mass Index (BMI) 24.3 Intake and Output for Last 24 Hours 06/27/18 06/28/18 06/29/18 23:59 23:59 23:59 Intake Total 3852.5 / 3852.5 4597.7 / 4597.7 Output Total 700 / 700 1200 / 1200 Balance 3152.5 / 3152.5 3397.7 / 3397.7 Labs (Last 48 Hours) 06/27/18 06/27/18 06/27/18 10:30 12:00 12:00 WBC RBC Hgb Hct MCV MCH MCHC RDW RDW Differential Plt Count MPV Immature Gran % (Auto) Neut % (Auto) Lymph % (Auto) [place] % (Auto) Eos % (Auto) Baso % (Auto) Absolute Neuts (auto) Absolute Lymphs (auto) Total Counted Specimen Type Sample Site pH Bicarbonate Actual POC Total CO2 Base Excess O2 Saturation ABG pCO2 ABG pO2 Steven Test O2 Delivery Device Blood Gas Notified Whom Blood Gas Notified Time Sodium Potassium Chloride Carbon Dioxide Anion Gap BUN Creatinine Estim Creat Clear Calc Est GFR (MDRD) Af Amer Est GFR (MDRD) Non-Af BUN/Creatinine Ratio Glucose Hemoglobin A1c 5.6 Calcium Total Bilirubin AST ALT Alkaline Phosphatase Troponin I Total Protein Albumin Globulin Albumin/Globulin Ratio TSH 1.21 Urine Color Urine Clarity Urine pH Ur Specific [place] Urine Protein Urine Glucose (UA) Urine Ketones Urine Occult Blood Urine Nitrite Urine Bilirubin Urine Urobilinogen Ur Leukocyte Esterase Urine RBC Urine WBC Ur Squamous Epith Cells Urine Bacteria Hyaline Casts Urine Mucus Ur Random Sodium Urine Creatinine MRSA (PCR) Negative POC Glucose 06/27/18 06/27/18 06/27/18 12:00 12:00 13:15 WBC RBC Hgb 11.9 L Hct 35.0 L MCV MCH MCHC RDW RDW Differential Plt Count MPV Immature Gran % (Auto) Neut % (Auto) Lymph % (Auto) [place] % (Auto) Eos % (Auto) Baso % (Auto) Absolute Neuts (auto) Absolute Lymphs (auto) Total Counted Specimen Type Sample Site pH Bicarbonate Actual POC Total CO2 Base Excess O2 Saturation ABG pCO2 ABG pO2 Steven Test O2 Delivery Device Blood Gas Notified Whom Blood Gas Notified Time Sodium Potassium Chloride Carbon Dioxide Anion Gap BUN Creatinine Estim Creat Clear Calc Est GFR (MDRD) Af Amer Est GFR (MDRD) Non-Af BUN/Creatinine Ratio Glucose Hemoglobin A1c Calcium Total Bilirubin AST ALT Alkaline Phosphatase Troponin I 0.129 H Total Protein Albumin Globulin Albumin/Globulin Ratio TSH Urine Color Yellow Urine Clarity Clear Urine pH 5.0 Ur Specific [place] 1.015 Urine Protein 15 H Urine Glucose (UA) Normal Urine Ketones 5 H Urine Occult Blood 10 H Urine Nitrite Negative Urine Bilirubin Negative Urine Urobilinogen Normal Ur Leukocyte Esterase Negative Urine RBC 0-5 SEEN Urine WBC 0 SEEN Ur Squamous Epith Cells 0-5 SEEN Urine Bacteria 0 SEEN Hyaline Casts 0-5 SEEN Urine Mucus 0 SEEN Ur Random Sodium Urine Creatinine MRSA (PCR) POC Glucose 06/27/18 06/27/18 06/27/18 13:15 13:15 15:10 WBC RBC Hgb Hct MCV MCH MCHC RDW RDW Differential Plt Count MPV Immature Gran % (Auto) Neut % (Auto) Lymph % (Auto) [place] % (Auto) Eos % (Auto) Baso % (Auto) Absolute Neuts (auto) Absolute Lymphs (auto) Total Counted Specimen Type Sample Site pH Bicarbonate Actual POC Total CO2 Base Excess O2 Saturation ABG pCO2 ABG pO2 Steven Test O2 Delivery Device Blood Gas Notified Whom Blood Gas Notified Time Sodium 146 H Potassium 5.7 H Chloride 119 H Carbon Dioxide 12.0 L Anion Gap 15 BUN 156 H* Creatinine 3.62 H Estim Creat Clear Calc 20.84 Est GFR (MDRD) Af Amer 22 L Est GFR (MDRD) Non-Af 18 L BUN/Creatinine Ratio 43.1 H Glucose 94 Hemoglobin A1c Calcium 8.5 Total Bilirubin AST ALT Alkaline Phosphatase Troponin I Total Protein Albumin Globulin Albumin/Globulin Ratio TSH Urine Color Urine Clarity Urine pH Ur Specific [place] Urine Protein Urine Glucose (UA) Urine Ketones Urine Occult Blood Urine Nitrite Urine Bilirubin Urine Urobilinogen Ur Leukocyte Esterase Urine RBC Urine WBC Ur Squamous Epith Cells Urine Bacteria Hyaline Casts Urine Mucus Ur Random Sodium 23 Urine Creatinine 155.00 MRSA (PCR) POC Glucose 06/27/18 06/27/18 06/27/18 15:10 15:10 16:55 WBC RBC Hgb 11.6 L Hct 34.6 L MCV MCH MCHC RDW RDW Differential Plt Count MPV Immature Gran % (Auto) Neut % (Auto) Lymph % (Auto) [place] % (Auto) Eos % (Auto) Baso % (Auto) Absolute Neuts (auto) Absolute Lymphs (auto) Total Counted Specimen Type Sample Site pH Bicarbonate Actual POC Total CO2 Base Excess O2 Saturation ABG pCO2 ABG pO2 Steven Test O2 Delivery Device Blood Gas Notified Whom Blood Gas Notified Time Sodium Potassium Chloride Carbon Dioxide Anion Gap BUN Creatinine Estim Creat Clear Calc Est GFR (MDRD) Af Amer Est GFR (MDRD) Non-Af BUN/Creatinine Ratio Glucose Hemoglobin A1c Calcium Total Bilirubin AST ALT Alkaline Phosphatase Troponin I 0.155 H Total Protein Albumin Globulin Albumin/Globulin Ratio TSH Urine Color Urine Clarity Urine pH Ur Specific [place] Urine Protein Urine Glucose (UA) Urine Ketones Urine Occult Blood Urine Nitrite Urine Bilirubin Urine Urobilinogen Ur Leukocyte Esterase Urine RBC Urine WBC Ur Squamous Epith Cells Urine Bacteria Hyaline Casts Urine Mucus Ur Random Sodium Urine Creatinine MRSA (PCR) POC Glucose 92 06/27/18 06/27/18 06/27/18 18:10 18:10 18:42 WBC RBC Hgb 11.2 L Hct 32.7 L MCV MCH MCHC RDW RDW Differential Plt Count MPV Immature Gran % (Auto) Neut % (Auto) Lymph % (Auto) [place] % (Auto) Eos % (Auto) Baso % (Auto) Absolute Neuts (auto) Absolute Lymphs (auto) Total Counted Specimen Type ART Sample Site L Radial pH 7.50 H Bicarbonate Actual 18.8 L POC Total CO2 19 Base Excess -4 L O2 Saturation 98 ABG pCO2 24.0 L ABG pO2 95 Steven Test NA O2 Delivery Device Room Air Blood Gas Notified Whom ICU Blood Gas Notified Time 1838 Sodium 138 Potassium 4.0 Chloride 104 Carbon Dioxide 21.0 Anion Gap 13 BUN 85 H Creatinine 2.05 H Estim Creat Clear Calc 36.80 Est GFR (MDRD) Af Amer 41 L Est GFR (MDRD) Non-Af 34 L BUN/Creatinine Ratio 41.5 H Glucose 123 H Hemoglobin A1c Calcium 7.5 L Total Bilirubin AST ALT Alkaline Phosphatase Troponin I 0.175 H Total Protein Albumin Globulin Albumin/Globulin Ratio TSH Urine Color Urine Clarity Urine pH Ur Specific [place] Urine Protein Urine Glucose (UA) Urine Ketones Urine Occult Blood Urine Nitrite Urine Bilirubin Urine Urobilinogen Ur Leukocyte Esterase Urine RBC Urine WBC Ur Squamous Epith Cells Urine Bacteria Hyaline Casts Urine Mucus Ur Random Sodium Urine Creatinine MRSA (PCR) POC Glucose 06/27/18 06/27/18 06/28/18 21:35 22:40 04:20 WBC 8.6 RBC 3.20 L Hgb 10.0 L 10.1 L Hct 29.5 L 29.7 L MCV 92.8 MCH 31.6 MCHC 34.0 RDW 13.3 RDW Differential 43.6 Plt Count 145 L MPV 11.6 Immature Gran % (Auto) 0.800 Neut % (Auto) 66.5 Lymph % (Auto) 13.2 L [place] % (Auto) 14.1 H Eos % (Auto) 5.2 H Baso % (Auto) 0.2 Absolute Neuts (auto) 5.7 Absolute Lymphs (auto) 1.14 Total Counted Not Reportable Specimen Type Sample Site pH Bicarbonate Actual POC Total CO2 Base Excess O2 Saturation ABG pCO2 ABG pO2 Steven Test O2 Delivery Device Blood Gas Notified Whom Blood Gas Notified Time Sodium Potassium Chloride Carbon Dioxide Anion Gap BUN Creatinine Estim Creat Clear Calc Est GFR (MDRD) Af Amer Est GFR (MDRD) Non-Af BUN/Creatinine Ratio Glucose Hemoglobin A1c Calcium Total Bilirubin AST ALT Alkaline Phosphatase Troponin I Total Protein Albumin Globulin Albumin/Globulin Ratio TSH Urine Color Urine Clarity Urine pH Ur Specific [place] Urine Protein Urine Glucose (UA) Urine Ketones Urine Occult Blood Urine Nitrite Urine Bilirubin Urine Urobilinogen Ur Leukocyte Esterase Urine RBC Urine WBC Ur Squamous Epith Cells Urine Bacteria Hyaline Casts Urine Mucus Ur Random Sodium Urine Creatinine MRSA (PCR) POC Glucose 100 06/28/18 06/28/18 06/28/18 04:20 08:03 12:44 WBC RBC Hgb Hct MCV MCH MCHC RDW RDW Differential Plt Count MPV Immature Gran % (Auto) Neut % (Auto) Lymph % (Auto) [place] % (Auto) Eos % (Auto) Baso % (Auto) Absolute Neuts (auto) Absolute Lymphs (auto) Total Counted Specimen Type Sample Site pH Bicarbonate Actual POC Total CO2 Base Excess O2 Saturation ABG pCO2 ABG pO2 Steven Test O2 Delivery Device Blood Gas Notified Whom Blood Gas Notified Time Sodium 143 Potassium 4.3 Chloride 108 H Carbon Dioxide 21.0 Anion Gap 14 BUN 79 H Creatinine 2.13 H Estim Creat Clear Calc 35.42 Est GFR (MDRD) Af Amer 40 L Est GFR (MDRD) Non-Af 33 L BUN/Creatinine Ratio 37.1 H Glucose 91 Hemoglobin A1c Calcium 7.7 L Total Bilirubin 0.40 AST 24 ALT 20 Alkaline Phosphatase 44 L Troponin I Total Protein 5.5 L Albumin 2.8 L Globulin 2.7 Albumin/Globulin Ratio 1.0 TSH Urine Color Urine Clarity Urine pH Ur Specific [place] Urine Protein Urine Glucose (UA) Urine Ketones Urine Occult Blood Urine Nitrite Urine Bilirubin Urine Urobilinogen Ur Leukocyte Esterase Urine RBC Urine WBC Ur Squamous Epith Cells Urine Bacteria Hyaline Casts Urine Mucus Ur Random Sodium Urine Creatinine MRSA (PCR) POC Glucose 97 91 06/28/18 06/28/18 06/28/18 14:00 16:40 21:55 WBC RBC Hgb 9.2 L Hct 27.7 L MCV MCH MCHC RDW RDW Differential Plt Count MPV Immature Gran % (Auto) Neut % (Auto) Lymph % (Auto) [place] % (Auto) Eos % (Auto) Baso % (Auto) Absolute Neuts (auto) Absolute Lymphs (auto) Total Counted Specimen Type Sample Site pH Bicarbonate Actual POC Total CO2 Base Excess O2 Saturation ABG pCO2 ABG pO2 Steven Test O2 Delivery Device Blood Gas Notified Whom Blood Gas Notified Time Sodium Potassium Chloride Carbon Dioxide Anion Gap BUN Creatinine Estim Creat Clear Calc Est GFR (MDRD) Af Amer Est GFR (MDRD) Non-Af BUN/Creatinine Ratio Glucose Hemoglobin A1c Calcium Total Bilirubin AST ALT Alkaline Phosphatase Troponin I Total Protein Albumin Globulin Albumin/Globulin Ratio TSH Urine Color Urine Clarity Urine pH Ur Specific [place] Urine Protein Urine Glucose (UA) Urine Ketones Urine Occult Blood Urine Nitrite Urine Bilirubin Urine Urobilinogen Ur Leukocyte Esterase Urine RBC Urine WBC Ur Squamous Epith Cells Urine Bacteria Hyaline Casts Urine Mucus Ur Random Sodium Urine Creatinine MRSA (PCR) POC Glucose 99 108 06/29/18 06/29/18 04:45 04:45 WBC 5.7 RBC 2.84 L Hgb 8.9 L Hct 27.2 L MCV 95.8 H MCH 31.3 MCHC 32.7 RDW 13.7 RDW Differential 45.2 H Plt Count 110 L MPV 11.4 Immature Gran % (Auto) 0.500 Neut % (Auto) 59.3 Lymph % (Auto) 19.7 [place] % (Auto) 13.6 H Eos % (Auto) 6.5 H Baso % (Auto) 0.4 Absolute Neuts (auto) 3.4 Absolute Lymphs (auto) 1.12 Total Counted Not Reportable Specimen Type Sample Site pH Bicarbonate Actual POC Total CO2 Base Excess O2 Saturation ABG pCO2 ABG pO2 Steven Test O2 Delivery Device Blood Gas Notified Whom Blood Gas Notified Time Sodium 148 H Potassium 4.4 Chloride 116 H Carbon Dioxide 21.0 Anion Gap 11 BUN 54 H Creatinine 1.58 H Estim Creat Clear Calc 47.75 Est GFR (MDRD) Af Amer 56 L Est GFR (MDRD) Non-Af 46 L BUN/Creatinine Ratio 34.2 H Glucose 88 Hemoglobin A1c Calcium 7.6 L Total Bilirubin 0.30 AST 22 ALT 16 Alkaline Phosphatase 38 L Troponin I Total Protein 4.9 L Albumin 2.4 L Globulin 2.5 Albumin/Globulin Ratio 1.0 TSH Urine Color Urine Clarity Urine pH Ur Specific [place] Urine Protein Urine Glucose (UA) Urine Ketones Urine Occult Blood Urine Nitrite Urine Bilirubin Urine Urobilinogen Ur Leukocyte Esterase Urine RBC Urine WBC Ur Squamous Epith Cells Urine Bacteria Hyaline Casts Urine Mucus Ur Random Sodium Urine Creatinine MRSA (PCR) POC Glucose Medical Necessity - Tobacco Use Smoking Status: Former smoker Assessment/Plan All Active Problems (Last Reviewed 06/28/18 @ 12:15 by Pop Stalh MD) Pneumobilia (Acute) Syncope (Acute) Atrial fibrillation with RVR (Acute) Hyperkalemia (Acute) Acute renal failure (Acute) RECOMMENDATIONS: 1. Discuss with nephrology about removal of hemodialysis catheter 2. Defer timing of EGD to surgery 3. Attempt continue discontinuation of norepinephrine drip 4. Obtain chest x-ray for evaluation of infiltrates 5. Wean oxygen as tolerated 6. Transition to p.o. Protonix 7. Transition IV fluids to D5 half-normal saline IMPRESSIONS: 1. Acute renal failure/hyperkalemia Unclear etiology at this time. Patient's fractional excretion of sodium is less than 1%. Patient has received significant volume resuscitation over the last 24 hours. Patient is now reporting a productive cough. Unclear if patient had pneumonia that was not visible on chest x-ray secondary to significant dehydration. Urine output has significantly improved. Will discuss with nephrology on whether hemodialysis catheter can be removed. 2. Probable acute upper GI bleed Patient is reporting 2-3 days of black stools prior to admission. Patient does take aspirin, but no other NSAIDs are reported. Patient is on Plavix at baseline. H&H has fallen since presentation, but this may be secondary to fluid resuscitation as all blood lines have decreased. CT of the abdomen shows pneumobilia of unclear etiology. Surgery appears to be unconcerned by the finding. Patient will need an upper GI evaluation prior to discharge from the hospital for initiation of anticoagulation. 3. Non-anion gap metabolic acidosis RESOLVED > Clinical suspicion for significant acidosis related to acute renal failure. Patient's lactate is within normal limits. Appears to be all secondary to renal failure 4. A. fib with RVR/coronary artery disease RESOLVED > cardiology is currently following. Patient has remained in normal sinus rhythm after normalization of electrolytes. Patient is currently off of amiodarone. 5. Syncopal event No further recurrence of syncopal events. Patient has remained in normal sinus rhythm. Patient has had some lower blood pressures requiring pressor therapy, but overall appears to be doing well. Will attempt to increase mobility today. 6. Acute hypoxic respiratory insufficiency Patient placed on minimal nasal cannula oxygen overnight. Of more concern, patient has developed a productive cough. Will obtain a sputum culture. Patient was placed on empiric meropenem yesterday for abdominal CT findings. We will continue that for now. If chest x-ray normal and sputum culture with no growth, antibiotics can likely be discontinued. 7. Reported BPH/advanced age/hypercholesterolemia/hypertension/diet-controlled diabetes mellitus/PVD Complicates care, management, recovery and prognosis. Will obtain a renal ultrasound to rule out postobstructive process. Sliding scale insulin should be sufficient. Hold Plavix secondary to possible upper GI bleed 8. Shock Unclear etiology of patient's persistent hypotension. Patient has been initiated on Levophed therapy. Empiric antibiotics were started given patient's pneumobilia, but no leukocytosis has been noted throughout hospitalization. TIME: 35 minutes critical care time spent addressing patient's acute kidney injury, upper GI bleed, metabolic acidosis, respiratory insufficiency, review of all data and collaboration with care team (5:30 AM to 6:30 AM) Code Visit [id number]: [id number] Critical care first hour
[2018-06-29] MEDS: Dext 5%-0.45% NS 1,000 ML 100 ML IV ×2 (06:51→16:37)
[2018-06-29] MEDS: Pantoprazole Sodium 40 MG Tablet PO ×2 (09:44→21:20)
[2018-06-29] MEDS: CHLORHEXIDINE GLUC 2% CLOTH 1 EACH TOWELETTE TOPICAL (09:46)
--- NOTE | 2018-06-29 09:52 | PCM.PN.CARD ---
Subjectve: Patient doing much better today, urine output improving. No 24 hour events. Telemetry showed normal sinus rhythm, no further atrial fibrillation. Objective: Vital Signs Temp Pulse Resp BP Pulse Ox 98.6 F 80 19 H 107/77 100 06/29/18 08:00 06/29/18 08:00 06/29/18 08:00 06/29/18 08:00 06/29/18 08:50 Oxygen Flow Rate (L/min) 1 Oxygen Delivery Method Room Air Weight: 186 lb 8.177 oz Body Mass Index (BMI) 24.3 Intake and Output for Last 24 Hours 06/27/18 06/28/18 06/29/18 23:59 23:59 23:59 Intake Total 3852.5 / 3852.5 4597.7 / 4597.7 1206 / 1206 Output Total 700 / 700 1200 / 1200 450 / 450 Balance 3152.5 / 3152.5 3397.7 / 3397.7 756 / 756 General: Awake, Alert, Oriented x 3 HEENT: PERRL, EOMI, Sclera Non Icteric Neck: Supple, Good ROM, No Lymph Node Enlargement Lungs: Clear to auscultation Cardiovascular: Regular Rhythm, Normal S1, Normal S2, No Murmurs, No Rubs, No Gallops Vascular: No Carotid Bruits, Normal Femoral Pulses, Normal Radial Pulses, Normal Dorsalis Pedal Pulse, Normal Posterior Tibial Pulses Abdomen: Bowel Sounds Present, Soft, Non Tender, No HSM, No Organomegaly Extremities: No Cyanosis, No Clubbing, No edema Neurological: No Focal Motor or Sensory Deficit 06/28/18 14:00: Hgb 9.2 L, Hct 27.7 L 06/29/18 04:45: WBC 5.7, RBC 2.84 L, Hgb 8.9 L, Hct 27.2 L, MCV 95.8 H, MCH 31.3, MCHC 32.7, RDW 13.7, RDW Differential 45.2 H, Plt Count 110 L, MPV 11.4, Immature Gran % (Auto) 0.500, Neut % (Auto) 59.3, Lymph % (Auto) 19.7, [place] % (Auto) 13.6 H, Eos % (Auto) 6.5 H, Baso % (Auto) 0.4, Absolute Neuts (auto) 3.4, Total Counted Not Reportable 06/29/18 04:45: Sodium 148 H, Potassium 4.4, Chloride 116 H, Carbon Dioxide 21.0, Anion Gap 11, BUN 54 H, Creatinine 1.58 H, Est GFR (MDRD) Af Amer 56 L, Est GFR (MDRD) Non-Af 46 L, BUN/Creatinine Ratio 34.2 H, Glucose 88, Calcium 7.6 L, Total Bilirubin 0.30 Rhythm: EKG: ECHO: Stress Test: Cardiac Cath: PCI: CT Surgery: Holter monitor: EPS: PPM: CXR: Chest CT Scan: Medical Necessity - Tobacco Use Smoking Status: Former smoker Assessment/Plan 1. Coronary artery disease: Patient has no anginal symptoms at this time despite his tachycardia and his abnormal troponin. Patient has acute renal failure at this time and requires urgent hemodialysis for both hyperkalemia, and decreased urine output. Would not recommend pursuing catheterization at this time. He has known coronary disease with stents to his LAD. Would recommend and consider a noninvasive stress test once his acute event has resolved. This may be done as an outpatient. Only if the patient has evidence of anterior ischemia would I consider repeat catheterization. Yesterday morning, now that the dust has settled, the patient admits to coffee-ground emesis in the recent past. This may be related to upper GI bleeding. Would recommend holding his baby aspirin but continuing his Plavix at this time. Patient may require a diagnostic EGD for evaluation. Would recommend consulting surgery. Continue PPI. Would recommend keeping his hemoglobin above 10.0 in light of his recent non-STEMI. 2. Acute renal failure: Would recommend holding his spironolactone as well as his lisinopril. Hemodialysis performed on 06/27/18, without complication. Potassium is now 4.3, and creatinine is 2.3. Right femoral venous sheath in place without evidence of infection, swelling, or tenderness. Now that he is making good urine output, would recommend discontinuation of right femoral venous sheath if agreeable to renal consult service. 3. Atrial fibrillation: Patient required urgent synchronized DC cardioversion last evening for hypotension and tachycardia. Patient converted to normal sinus rhythm on a single shock without difficulty and is remained in sinus rhythm ever since. IV amiodarone infusion completed. We will hold off on p.o. ambulate this time. In addition now that he is more stabilized would recommend starting him on low-dose beta-becky therapy such as Lopressor 12.5 mg p.o. twice daily. The patient was on Lopressor 50 mg p.o. twice daily. 4. Hyperlipidemia: We will obtain fasting lipid profile. Hold on Pravachol for now. 5. Discussed with Dr. Whitehead. Await EGD results. Code Visit Inpatient E&M: 02381 Subs Hosp L2
--- NOTE | 2018-06-29 10:08 | PCM.PROGNOTE ---
Patient Problems: Active and Suspected Problems (Last Reviewed 06/28/18 @ 12:15 by Pop Stahl MD) Pneumobilia (Acute) Syncope (Acute) Atrial fibrillation with RVR (Acute) Hyperkalemia (Acute) Acute renal failure (Acute) Subjective: Chief complaint: Follow-up after admission for acute renal failure, uremia, metabolic acidosis, hyperkalemia, new onset A. fib with RVR and probable GI bleed. Patient seen and examined. No acute events overnight. He remains on low doses of Levophed drip throughout the night, was discontinued this morning. He reported minimal shortness of breath and mild cough. He denied chest pain, palpitation, dizziness or lightheadedness. He denies abdominal pain, nausea or vomiting. His vital signs are stable, he is back into sinus rhythm. - Physical Exam General: Alert, Oriented x3, Cooperative, No apparent distress HEENT: Atraumatic, PERRLA, EOMI, Normocephalic Oral: Moist Mucosa, No Gingival or Mucosal Lesions/ Ulcerations Neck: Supple, No JVD, Negative Carotid Bruits, Trachea Midline, Thyroid Normal Size and Texture Lungs: Clear to auscultation, No rhonchi, No wheeze, No rales, Diminished Cardiovascular: Regular rate, Regular Rhythm, Normal S1, Normal S2, No murmurs, PMI Normal Abdomen: Bowel Sounds Present, Soft, Non Tender, Non-Distended, No Hepato-splenomegaly Extremities: No clubbing, No cyanosis, No edema Skin: No rashes, No breakdown Lymphatic: No Cervical, Supraclavicular, or Inguinal Adenopathy Neurological: Cranial nerves II-XII grossly intact, Motor Exam 5/5 strength throughout Psych/Mental Status: Normal Affect, Appropriate, Alert and oriented to time, place, person, mood and affect Vital Signs Temp Pulse Resp BP Pulse Ox 98.6 F 80 19 H 107/77 100 06/29/18 08:00 06/29/18 08:00 06/29/18 08:00 06/29/18 08:00 06/29/18 08:50 Oxygen Flow Rate (L/min) 1 Oxygen Delivery Method Room Air Weight: 186 lb 8.177 oz Body Mass Index (BMI) 24.3 Intake and Output for Last 24 Hours 06/27/18 06/28/18 06/29/18 23:59 23:59 23:59 Intake Total 3852.5 / 3852.5 4597.7 / 4597.7 1206 / 1206 Output Total 700 / 700 1200 / 1200 450 / 450 Balance 3152.5 / 3152.5 3397.7 / 3397.7 756 / 756 Laboratory Tests Past 24 Hrs 06/28/18 06/29/18 06/29/18 14:00 04:45 04:45 WBC 5.7 RBC 2.84 L Hgb 9.2 L 8.9 L Hct 27.7 L 27.2 L MCV 95.8 H MCH 31.3 MCHC 32.7 RDW 13.7 RDW Differential 45.2 H Plt Count 110 L MPV 11.4 Immature Gran % (Auto) 0.500 Neut % (Auto) 59.3 Lymph % (Auto) 19.7 [place] % (Auto) 13.6 H Eos % (Auto) 6.5 H Baso % (Auto) 0.4 Absolute Neuts (auto) 3.4 Absolute Lymphs (auto) 1.12 Total Counted Not Reportable Sodium 148 H Potassium 4.4 Chloride 116 H Carbon Dioxide 21.0 Anion Gap 11 BUN 54 H Creatinine 1.58 H Estim Creat Clear Calc 47.75 Est GFR (MDRD) Af Amer 56 L Est GFR (MDRD) Non-Af 46 L BUN/Creatinine Ratio 34.2 H Glucose 88 Calcium 7.6 L Total Bilirubin 0.30 AST 22 ALT 16 Alkaline Phosphatase 38 L Total Protein 4.9 L Albumin 2.4 L Globulin 2.5 Albumin/Globulin Ratio 1.0 POC Glucose 06/28/18 06/28/18 06/28/18 21:55 16:40 12:44 POC Glucose 108 99 91 Medical Necessity - Tobacco Use Smoking Status: Former smoker Assessment/Plan All Active Problems (Last Reviewed 06/28/18 @ 12:15 by Pop Stahl MD) Pneumobilia (Acute) Syncope (Acute) Atrial fibrillation with RVR (Acute) Hyperkalemia (Acute) Acute renal failure (Acute) This is a 68 years old male patient presented to the emergency room because of syncope, found to have acute renal failure complicated by uremia and metabolic acidosis as well as hyperkalemia and while in the ER, he went into A. fib with RVR which is new to him and also found to have borderline elevated troponin. Also, patient complains of melena. #1 acute renal failure/uremia/metabolic acidosis: Status post hemodialysis ?1. Today, BUN is down to 54, creatinine is down to 1.58. Urine output is improving. Kidney ultrasound revealed normal-sized left and right kidney without evidence of hydronephrosis, hydroureter or stones. CT scan abdomen and pelvis without contrast revealed pneumobilia, no other acute findings. Remains on meropenem IV empirically for pneumobilia. Overnight, he required small doses of IV Levophed drip but was discontinued this morning. Blood pressure is maintained at this time. Nephrology on the case. Plan to continue IV fluids. #2 hyperkalemia: Secondary to above. Status post hemodialysis, potassium is back to normal, today's potassium is 4.4. Serum phosphorus and magnesium are slightly elevated. Plan as above. #3 new onset A. fib with RVR: Status post cardioversion, remained in sinus rhythm. IV amiodarone drip discontinued, blood pressure stable. 2D echocardiogram revealed ejection fraction 75%, mild aortic stenosis. He is not on anticoagulation because of melena. Cardiology on the case, recommended no long-term treatment because this new onset A. fib is likely because of the acute renal failure and electrolyte derangement. #4 shock: Unclear etiology, but could be due to hypovolemic shock. Patient has been on low doses of IV Levophed drip, discontinued this morning. At this time, blood pressure is maintained. Kidney function is improving. Plan as above. #5 borderline elevated troponin: Likely due to acute renal failure in addition to A. fib with RVR or possible underlying CAD. Patient remained without chest pain. Troponin is indeterminate and flat. Patient does have history of CAD status post stents. 2D echocardiogram reviewed as above. Cardiology on the case, recommended noninvasive testing when appropriate. #6 GI bleed/melena: Patient reported black stool for the last couple of days. He has been on Plavix as well as aspirin. He is on IV Protonix twice daily. General surgery consulted for upper EGD. #7 CAD status post stents: Plan as above, aspirin, Plavix and statins as well as losartan held. #8 hypertension: Patient has been on Levophed drip because of hypotension. His antihypertensive medications held at this time. #9 hyperlipidemia: Continue statins. #10 diet-controlled type 2 diabetes mellitus: Patient is not on any diabetic medications at home. His blood sugar has been stable. He is only on sliding scale. Hemoglobin A1c is 5.6. #11 DVT prophylaxis: SCDs. #12 CODE STATUS: Full code. This is discussed with the patient by Dr. Whitehead, boat motor mechanic. This note was generated with [employer]ation software. It may contain incorrect words, spelling, and punctuation that were not noted in checking the note before signing. Code Visit Inpatient E&M: 98637 Subs Hosp L2
[2018-06-29] MEDS: Metoprolol Tartrate 25 MG Tablet 12.5 MG PO ×2 (10:25→21:17)
--- NOTE | 2018-06-29 10:37 | PCM.PN.SRG ---
Patient Problems: Active and Suspected Problems (Last Reviewed 06/28/18 @ 12:15 by Pop Stahl MD) Pneumobilia (Acute) Syncope (Acute) Atrial fibrillation with RVR (Acute) Hyperkalemia (Acute) Acute renal failure (Acute) Subjective: Patient is not complaining of any pain in the right upper quadrant. No reported history of hematemesis or hematochezia. Objective: His abdomen is soft nontender nondistended - Physical Exam Vital Signs Temp Pulse Resp BP Pulse Ox 98.6 F 76 19 H 107/77 100 06/29/18 08:00 06/29/18 10:25 06/29/18 08:00 06/29/18 08:00 06/29/18 08:50 Oxygen Flow Rate (L/min) 1 Oxygen Delivery Method Room Air Weight: 186 lb 8.177 oz Body Mass Index (BMI) 24.3 Intake and Output for Last 24 Hours 06/27/18 06/28/18 06/29/18 23:59 23:59 23:59 Intake Total 3852.5 / 3852.5 4597.7 / 4597.7 1206 / 1206 Output Total 700 / 700 1200 / 1200 450 / 450 Balance 3152.5 / 3152.5 3397.7 / 3397.7 756 / 756 Laboratory Tests Past 24 Hrs 06/28/18 06/29/18 06/29/18 14:00 04:45 04:45 WBC 5.7 RBC 2.84 L Hgb 9.2 L 8.9 L Hct 27.7 L 27.2 L MCV 95.8 H MCH 31.3 MCHC 32.7 RDW 13.7 RDW Differential 45.2 H Plt Count 110 L MPV 11.4 Immature Gran % (Auto) 0.500 Neut % (Auto) 59.3 Lymph % (Auto) 19.7 [place] % (Auto) 13.6 H Eos % (Auto) 6.5 H Baso % (Auto) 0.4 Absolute Neuts (auto) 3.4 Absolute Lymphs (auto) 1.12 Total Counted Not Reportable Sodium 148 H Potassium 4.4 Chloride 116 H Carbon Dioxide 21.0 Anion Gap 11 BUN 54 H Creatinine 1.58 H Estim Creat Clear Calc 47.75 Est GFR (MDRD) Af Amer 56 L Est GFR (MDRD) Non-Af 46 L BUN/Creatinine Ratio 34.2 H Glucose 88 Calcium 7.6 L Total Bilirubin 0.30 AST 22 ALT 16 Alkaline Phosphatase 38 L Total Protein 4.9 L Albumin 2.4 L Globulin 2.5 Albumin/Globulin Ratio 1.0 POC Glucose 06/28/18 06/28/18 06/28/18 21:55 16:40 12:44 POC Glucose 108 99 91 Medical Necessity - Tobacco Use Smoking Status: Former smoker Assessment/Plan All Active Problems (Last Reviewed 06/28/18 @ 12:15 by Pop Stahl MD) Pneumobilia (Acute) Syncope (Acute) Atrial fibrillation with RVR (Acute) Hyperkalemia (Acute) Acute renal failure (Acute) I will plan on performing upper endoscopy on him sometime during this admission so that he can be placed on anticoagulation. I am not concerned that we are missing or dealing with cholangitis given all of his liver function tests being normal and no abdominal pain to speak of. Still no success of finding old records optical disc is not functioning properly at this time. Patient is much more awake and asking him about his endoscopy history it does not sound like he has ever had an ERCP or sphincterotomy.
[2018-06-29] MEDS: DiphenhydrAMINE 25 MG Capsule PO (20:18)
--- NOTE | 2018-06-29 20:18 | PCM.PN.REN ---
Patient Problems: Active and Suspected Problems (Last Reviewed 06/28/18 @ 12:15 by Pop Stahl MD) Pneumobilia (Acute) Syncope (Acute) Atrial fibrillation with RVR (Acute) Hyperkalemia (Acute) Acute renal failure (Acute) Subjective: Following for BLAYNE. Pt denies CP, SOB at rest or nausea. Has epigastric pain. No N/V. - Physical Exam General: Alert, Oriented x3 HEENT: Atraumatic Oral: Moist Mucosa Neck: Supple, No JVD Lungs: Clear to auscultation Cardiovascular: Normal S1, Normal S2, No murmurs Abdomen: Bowel Sounds Present, Soft, Non Tender, Non-Distended Extremities: No edema Vital Signs Temp Pulse Resp BP Pulse Ox 98.9 F 73 17 138/66 H 100 06/29/18 20:00 06/29/18 20:00 06/29/18 20:00 06/29/18 20:00 06/29/18 20:00 Oxygen Flow Rate (L/min) 1 Oxygen Delivery Method Room Air Weight: 84.6 kg Body Mass Index (BMI) 24.3 Intake and Output for Last 24 Hours 06/27/18 06/28/18 06/29/18 23:59 23:59 23:59 Intake Total 3852.5 / 3852.5 4597.7 / 4597.7 3090 / 3090 Output Total 700 / 700 1200 / 1200 1275 / 1275 Balance 3152.5 / 3152.5 3397.7 / 3397.7 1815 / 1815 Laboratory Tests Past 24 Hrs 06/29/18 06/29/18 04:45 04:45 WBC 5.7 RBC 2.84 L Hgb 8.9 L Hct 27.2 L MCV 95.8 H MCH 31.3 MCHC 32.7 RDW 13.7 RDW Differential 45.2 H Plt Count 110 L MPV 11.4 Immature Gran % (Auto) 0.500 Neut % (Auto) 59.3 Lymph % (Auto) 19.7 [place] % (Auto) 13.6 H Eos % (Auto) 6.5 H Baso % (Auto) 0.4 Absolute Neuts (auto) 3.4 Absolute Lymphs (auto) 1.12 Total Counted Not Reportable Sodium 148 H Potassium 4.4 Chloride 116 H Carbon Dioxide 21.0 Anion Gap 11 BUN 54 H Creatinine 1.58 H Estim Creat Clear Calc 47.75 Est GFR (MDRD) Af Amer 56 L Est GFR (MDRD) Non-Af 46 L BUN/Creatinine Ratio 34.2 H Glucose 88 Calcium 7.6 L Total Bilirubin 0.30 AST 22 ALT 16 Alkaline Phosphatase 38 L Total Protein 4.9 L Albumin 2.4 L Globulin 2.5 Albumin/Globulin Ratio 1.0 POC Glucose 06/28/18 21:55 POC Glucose 108 Medical Necessity - Tobacco Use Smoking Status: Former smoker Assessment/Plan All Active Problems (Last Reviewed 06/28/18 @ 12:15 by Ppo Stahl MD) Pneumobilia (Acute) Syncope (Acute) Atrial fibrillation with RVR (Acute) Hyperkalemia (Acute) Acute renal failure (Acute) 1. Acute kidney injury. Baseline SCr 1.03 mg/dL (August 2017). BLAYNE is likely due to prerenal azotemia->ATN from volume depletion. FENa was <1% on presentation. CT of abdomen did not show hydronephrosis though it did show renal vascular calcification. Pt has been on losartan and spironolactone which likely worsened renal function. Agree with IVF for continued volume repletion. Continue to hold ARB and spironolactone until renal function is back to baseline. D/w Dr. Whitehead earlier. No further need for HD. Recheck renal function again in am. Anticipate continued renal recovery. Monitor for hypernatremia as pt is in polyuric phase of renal recovery. Meds are reviewed. 2. Hyperkalemia. Resolved. Did require dialysis x 1 on 06/27/18. Continue to hold ARB and aldosterone antagonist. Recheck K in am. 3. Metabolic acidosis. Improved. Recheck HCO3 in am. 4. Shock. Probably hypovolemic shock. Improved. Off pressor. Hold BP meds. Give fluid. 5. Pneumobilia. Surgery evaluation. 6. UGIB. For EGD tomorrow.
[2018-06-29] MEDS: 0.9% NaCl Peripheral Flush Adult/Peds IV (21:21)
[2018-06-30] VITALS (23 sets, daily range): BP systolic 106–150; BP diastolic 40–85; PULSE 41–72; RESP 8–20; TEMP 36.2–37; O2SAT 94–100
[2018-06-30] MEDS: HYDROcodone Bitartrate/Apap 5/325 Tablet PO ×2 (01:04→19:25)
[2018-06-30] MEDS: Dext 5%-0.45% NS 1,000 ML 100 ML IV (02:36)
[2018-06-30 06:20] LABS: Absolute Lymphocyte Count 1.63 X10^3/ul (0.83-4.51); Absolute Neutrophil Count 3.2 X10^3/uL (2.0-7.7); Basophil# 0.01 X10^3/uL; Basophil% 0.2 % (0-1); Eosinophil# 0.28 X10^3/uL; Eosinophils% 4.8 % (0-5); Hematocrit 25.4 % (40-54); Hemoglobin 8.3 g/dl (13.0-16.5); Lymphocyte # 1.63 X10^3/ul (4.0); Lymphocyte % 28.1 % (19-41); Mean Corp Hgb Conc 32.7 g/gl (32-36); Mean Corpuscular Hgb 31.7 pg (27.0-32.0); Mean Corpuscular Volume 96.9 fL (80-94); Mean Platelet Vol. 11.5 fl (6.2-12.0); Monocyte# 0.64 X10^3/uL; Neutrophil % 55.2 % (47-70); Platelet Count 95 K/mm3 (150-450); RBC Distribution Width CV 13.5 % (11.6-14.6); RBC Distribution Width SD 44.9 fl (35.1-43.9); Red Blood Count 2.62 M/mm3 (4.6-6.2); White Blood Count 5.8 K/mm3 (4.4-11.0)
[2018-06-30 06:27] LABS: Anion Gap 7 (5-15); BUN 31 mg/dL (7-18); BUN/Creat Ratio 22.3 RATIO (10-20); Calcium,Total 7.6 mg/dL (8.5-10.1); Chloride 114 mmol/L (98-107); Creatinine, Serum 1.39 mg/dL (0.70-1.30); EST Glomerular Filtration Rate 54 mL/min (>60); Est Glom Filt Rate - Afr Amer 65 mL/min (>60); Estimated Creatinine Clearance 54.28 ml/min; Glucose 112 mg/dL (74-106); Potassium 4.1 mmol/L (3.5-5.1); Sodium Level 143 mmol/L (136-145)
[2018-06-30 06:39] LABS: POSITIVE COUNT NO; POSITIVE DIFFERENTIAL NO; POSITIVE MORPHOLOGY NO
--- NOTE | 2018-06-30 07:00 | PN_ITS ---
Subjective: Patient did well overnight. Patient did have hemodialysis catheter removed and was able to be up in the chair for most of the day yesterday. Patient denies any bowel movement. Patient tolerated p.o. diet. Patient refused MiraLAX for constipation General: Alert, Oriented x3, Cooperative, No apparent distress, - - Better color today. Speaking in full sentences. HEENT: Atraumatic, PERRLA, EOMI, Normocephalic, - - No scleral icterus or injection noted. Oral: Moist Mucosa, No Gingival or Mucosal Lesions/ Ulcerations Neck: Supple, No JVD, No Nodes, Trachea Midline Lungs: Clear to auscultation, Normal air movement, No rhonchi, No wheeze, No rales Cardiovascular: Regular rate, Regular Rhythm, Normal S1, Normal S2, No murmurs, No rub noted, No Gallop, - - Normal sinus rhythm noted on telemetry Abdomen: Bowel Sounds Present, Soft, Non Tender, Non-Distended Extremities: No clubbing, No cyanosis, No edema, Capillary Refill Less than 3 Seconds Skin: No rashes, No breakdown Musculoskeletal: No Tenderness to Palpation of Joints or Extremities Lymphatic: No Cervical, Supraclavicular, or Inguinal Adenopathy Neurological: Cranial nerves II-XII grossly intact, Neuro grossly intact, Motor Exam 5/5 strength throughout Psych/Mental Status: Alert and oriented to time, place, person, mood and affect Vital Signs Temp Pulse Resp BP Pulse Ox 36.8 C 63 15 131/71 H 100 06/30/18 04:00 06/30/18 06:00 06/30/18 06:00 06/30/18 06:00 06/30/18 06:27 Oxygen Flow Rate (L/min) 1 Oxygen Delivery Method Room Air Weight: 84.6 kg Body Mass Index (BMI) 24.3 Intake and Output for Last 24 Hours 06/28/18 06/29/18 06/30/18 23:59 23:59 23:59 Intake Total 4597.7 / 4597.7 3974 / 3974 714.4 / 714.4 Output Total 1200 / 1200 1545 / 1545 260 / 260 Balance 3397.7 / 3397.7 2429 / 2429 454.4 / 454.4 Labs (Last 48 Hours) 06/28/18 06/28/18 06/28/18 08:03 12:44 14:00 WBC RBC Hgb 9.2 L Hct 27.7 L MCV MCH MCHC RDW RDW Differential Plt Count MPV Immature Gran % (Auto) Neut % (Auto) Lymph % (Auto) [place] % (Auto) Eos % (Auto) Baso % (Auto) Absolute Neuts (auto) Absolute Lymphs (auto) Total Counted Sodium Potassium Chloride Carbon Dioxide Anion Gap BUN Creatinine Estim Creat Clear Calc Est GFR (MDRD) Af Amer Est GFR (MDRD) Non-Af BUN/Creatinine Ratio Glucose Calcium Total Bilirubin AST ALT Alkaline Phosphatase Total Protein Albumin Globulin Albumin/Globulin Ratio POC Glucose 97 91 06/28/18 06/28/18 06/29/18 16:40 21:55 04:45 WBC 5.7 RBC 2.84 L Hgb 8.9 L Hct 27.2 L MCV 95.8 H MCH 31.3 MCHC 32.7 RDW 13.7 RDW Differential 45.2 H Plt Count 110 L MPV 11.4 Immature Gran % (Auto) 0.500 Neut % (Auto) 59.3 Lymph % (Auto) 19.7 [place] % (Auto) 13.6 H Eos % (Auto) 6.5 H Baso % (Auto) 0.4 Absolute Neuts (auto) 3.4 Absolute Lymphs (auto) 1.12 Total Counted Not Reportable Sodium Potassium Chloride Carbon Dioxide Anion Gap BUN Creatinine Estim Creat Clear Calc Est GFR (MDRD) Af Amer Est GFR (MDRD) Non-Af BUN/Creatinine Ratio Glucose Calcium Total Bilirubin AST ALT Alkaline Phosphatase Total Protein Albumin Globulin Albumin/Globulin Ratio POC Glucose 99 108 06/29/18 06/30/18 06/30/18 04:45 06:00 06:00 WBC 5.8 RBC 2.62 L Hgb 8.3 L Hct 25.4 L MCV 96.9 H MCH 31.7 MCHC 32.7 RDW 13.5 RDW Differential 44.9 H Plt Count 95 L MPV 11.5 Immature Gran % (Auto) 0.700 Neut % (Auto) 55.2 Lymph % (Auto) 28.1 [place] % (Auto) 11.0 H Eos % (Auto) 4.8 Baso % (Auto) 0.2 Absolute Neuts (auto) 3.2 Absolute Lymphs (auto) 1.63 Total Counted Not Reportable Sodium 148 H 143 Potassium 4.4 4.1 Chloride 116 H 114 H Carbon Dioxide 21.0 22.0 Anion Gap 11 7 BUN 54 H 31 H Creatinine 1.58 H 1.39 H Estim Creat Clear Calc 47.75 54.28 Est GFR (MDRD) Af Amer 56 L 65 Est GFR (MDRD) Non-Af 46 L 54 L BUN/Creatinine Ratio 34.2 H 22.3 H Glucose 88 112 H Calcium 7.6 L 7.6 L Total Bilirubin 0.30 AST 22 ALT 16 Alkaline Phosphatase 38 L Total Protein 4.9 L Albumin 2.4 L Globulin 2.5 Albumin/Globulin Ratio 1.0 POC Glucose Clinical Impression(s) from Imaging Studies Chest X-Ray 06/29/18 06:35 IMPRESSION: Component of COPD. There is no acute cardiopulmonary disease. There is no significant interval change. Electronically Signed: Savanah Colindres MD at 6:56 EDT , Service support , Medical Necessity - Tobacco Use Smoking Status: Former smoker Assessment/Plan All Active Problems (Last Reviewed 06/28/18 @ 12:15 by Pop Stahl MD) Pneumobilia (Acute) Syncope (Acute) Atrial fibrillation with RVR (Acute) Hyperkalemia (Acute) Acute renal failure (Acute) RECOMMENDATIONS: 1. Remove Solorzano catheter 2. Defer timing of EGD to surgery 3. Discontinue Levophed drip, IV fluids and antibiotics 4. Increase activity as tolerated 5. Okay to transfer from the intensive care unit IMPRESSIONS: 1. Acute renal failure/hyperkalemia Unclear etiology at this time. Patient's fractional excretion of sodium is less than 1% initially. Patient has received significant volume resuscitation. Hemodialysis catheter was removed yesterday. Patient's creatinine appears to be approaching normal range at this time. Hyperkalemia and hypernatremia are much improved. Will discontinue IV fluids. Solorzano catheter can be removed. 2. Probable acute upper GI bleed Patient is reporting 2-3 days of black stools prior to admission. Patient does take aspirin, but no other NSAIDs are reported. Patient is on Plavix at baseline. H&H has continued to fall throughout the hospitalization. This has been associated with fluid resuscitation, but patient has had over a 5 g drop in hemoglobin. Patient likely should have an EGD, but will defer timing to general surgery. 3. Non-anion gap metabolic acidosis RESOLVED > Clinical suspicion for significant acidosis related to acute renal failure. Patient's lactate is within normal limits. Appears to be all secondary to renal failure 4. A. fib with RVR/coronary artery disease RESOLVED > cardiology is currently following. Patient has remained in normal sinus rhythm after normalization of electrolytes. Patient is currently off of amiodarone. 5. Syncopal event No further recurrence of syncopal events. Patient has remained in normal sinus rhythm. Patient able to mobilize yesterday without orthostatic type symptoms. 6. Acute hypoxic respiratory insufficiency RESOLVED > patient appears to be back to baseline at this time. Patient was on meropenem, but has been afebrile and no leukocytosis has been noted. Will discontinue empiric antibiotics. Doubt patient with acute pneumonia as there is been no infiltrates on chest x-ray despite adequate resuscitation. 7. Reported BPH/advanced age/hypercholesterolemia/hypertension/diet- controlled diabetes mellitus/PVD Complicates care, management, recovery and prognosis. Will obtain a renal ultrasound to rule out postobstructive process. Sliding scale insulin should be sufficient. Reinitiate Plavix per surgery recommendations 8. Shock RESOLVED> unclear etiology of patient's persistent hypotension. Clinical suspicion would be for volume depletion. Patient was placed on antibiotics empirically, but has had no fever, leukocytosis or pulmonary infiltrates appreciated. Surgery believes pneumobilia does not require any intervention and patient does not have a tender abdomen to signify cholangitis. Code Visit Inpatient E&M: 89356 [facility] Hosp L3
[2018-06-30] MEDS: Docusate Sodium 100 MG Capsule PO ×2 (08:40→21:54)
[2018-06-30] MEDS: Metoprolol Tartrate 25 MG Tablet 12.5 MG PO ×2 (08:41→21:58)
[2018-06-30] MEDS: Polyethylene Glycol 3350 17 GM PACKET PO (08:41)
[2018-06-30] MEDS: Pantoprazole Sodium 40 MG Tablet PO ×2 (08:41→21:54)
--- NOTE | 2018-06-30 10:25 | PCM.PN.HOSP ---
Patient Problems: Active and Suspected Problems (Last Reviewed 06/28/18 @ 12:15 by Pop Stahl MD) Pneumobilia (Acute) Syncope (Acute) Atrial fibrillation with RVR (Acute) Hyperkalemia (Acute) Acute renal failure (Acute) Subjective: Still a little washed out, has an appetite and he denies any abdominal pain. He has not had a BM in a few days Vitals/I&O's: Vital Signs Temp Pulse Resp BP Pulse Ox 97.5 F L 41 L 20 H 129/82 H 100 06/30/18 08:00 06/30/18 08:41 06/30/18 08:00 06/30/18 08:41 06/30/18 08:00 Oxygen Flow Rate (L/min) 1 Oxygen Delivery Method Room Air Weight: 186 lb 8.177 oz Body Mass Index (BMI) 24.3 Intake and Output for Last 24 Hours 06/28/18 06/29/18 06/30/18 23:59 23:59 23:59 Intake Total 4597.7 / 4597.7 3974 / 3974 714.4 / 714.4 Output Total 1200 / 1200 1545 / 1545 260 / 260 Balance 3397.7 / 3397.7 2429 / 2429 454.4 / 454.4 General: Alert, Oriented x3, Cooperative, No apparent distress HEENT: Atraumatic, EOMI, Normocephalic Oral: Moist Mucosa Neck: Supple, No JVD Lungs: Clear to auscultation, Normal air movement, No rhonchi, No wheeze, No rales Cardiovascular: Regular rate, Regular Rhythm, Normal S1, Normal S2, No murmurs Abdomen: Soft, Non Tender, Non-Distended, No Hepato-splenomegaly Extremities: Capillary Refill Less than 3 Seconds, Edema Skin: No rashes, No breakdown Neurological: Neuro grossly intact, Sensory exam intact to light touch and pain Psych/Mental Status: Normal Affect, Appropriate Laboratory Results 06/30/18 06:00: WBC 5.8, RBC 2.62 L, Hgb 8.3 L, Hct 25.4 L, MCV 96.9 H, MCH 31.7, MCHC 32.7, RDW 13.5, RDW Differential 44.9 H, Plt Count 95 L, MPV 11.5, Immature Gran % (Auto) 0.700, Neut % (Auto) 55.2, Lymph % (Auto) 28.1, [place] % (Auto) 11.0 H, Eos % (Auto) 4.8, Baso % (Auto) 0.2, Absolute Neuts (auto) 3.2, Absolute Lymphs (auto) 1.63, Total Counted Not Reportable 06/30/18 06:00: Sodium 143, Potassium 4.1, Chloride 114 H, Carbon Dioxide 22.0, Anion Gap 7, BUN 31 H, Creatinine 1.39 H, Estim Creat Clear Calc 54.28, Est GFR (MDRD) Af Amer 65, Est GFR (MDRD) Non-Af 54 L, BUN/Creatinine Ratio 22.3 H, Glucose 112 H, Calcium 7.6 L Current Medications Acetaminophen (Tylenol) 650 mg PO Q6H PRN PRN PRN Reason: Fever, headache, pain Last Admin: 06/28/18 03:37 Dose: 650 mg Hydrocodone Bitart/Acetaminophen (Walls 5mg-325mg) 1 - 2 tablet PO Q6H PRN PRN PRN Reason: SEVERE PAIN (6-10/10) Last Admin: 06/30/18 01:04 Dose: 1 tablet Albuterol Sulfate (Ventolin Aerosols) 2.5 mg INHALATION Q4H PRN PRN PRN Reason: Shortness of breath, wheezing Chlorhexidine Gluconate () 1 each TOPICAL DAILY [facility] Last Admin: 06/29/18 09:46 Dose: 1 each Diphenhydramine HCl (Benadryl) 25 mg PO Q6H PRN PRN PRN Reason: ALLERGIES Last Admin: 06/29/18 20:18 Dose: 25 mg Docusate Sodium (Colace) 100 mg PO BID [facility] Last Admin: 06/30/18 08:40 Dose: 100 mg Magnesium Hydroxide (Milk Of Magnesia) 30 ml PO DAILY PRN PRN Reason: Constipation Metoprolol Tartrate (Lopressor (Beta Bere)) 12.5 mg PO BID [facility] Last Admin: 06/30/18 08:41 Dose: 12.5 mg Ondansetron HCl (Zofran) 4 mg IV Q6H PRN PRN PRN Reason: NAUSEA/VOMITING Pantoprazole Sodium (Protonix) 40 mg PO BID [facility] Last Admin: 06/30/18 08:41 Dose: 40 mg Polyethylene Glycol (Miralax) 17 gm PO DAILY [facility] Last Admin: 06/30/18 08:41 Dose: 17 gm Sodium Chloride () 5 - 30 ml IV UD PRN PRN Reason: SALINE FLUSH Last Admin: 06/29/18 21:21 Dose: 10 ml Medical Necessity - Tobacco Use Smoking Status: Former smoker Assessment/Plan All Active Problems (Last Reviewed 06/28/18 @ 12:15 by Pop Stahl MD) Pneumobilia (Acute) Syncope (Acute) Atrial fibrillation with RVR (Acute) Hyperkalemia (Acute) Acute renal failure (Acute) 1. Acute renal failure/Uremia/Metabolic acidosis/Pneumobilia/Hyperkalemia - All appear to be resolving - He had one hemodialysis treatment and his dialysis cath was removed - Cr is 1.39 and trending down - Renal US was normal - c/w meropenem IV and c/w IVF - His hyperkalemia has resolved - Appreciate recs from nephrology 2. Afib with RVR/Shock/Slightly elevated troponin/CAD s/p stents/HTN/HLD - s/p cardioversion still in NSR - echo with EF75% and mild aortic stenosis - Has had melena so anticoagulation is on hold until cleared by EGD/C-scope - Shock has resolved with pressors and fluid and he currently stable - Troponin elevation likely d/t kidney disease, afib and shock - Hold ASA/Plavix and BP medications, can adrianna restart some medications tomorrow - c/w statin 3. GI bleed - c/w IV PPI BID - consult to surgery for scopes - appreciate surgery recs 4. DM2 - diet controlled at home with A1c of 5.6 - continue to monitor DVT: SCDs Diet: regular Code: FULL Dispo: Pending EGD Code Visit Inpatient E&M: 45949 [facility] Hosp L3
--- NOTE | 2018-06-30 13:01 | PCM.PN.REN ---
Patient Problems: Active and Suspected Problems (Last Reviewed 06/28/18 @ 12:15 by Pop Stahl MD) Pneumobilia (Acute) Syncope (Acute) Atrial fibrillation with RVR (Acute) Hyperkalemia (Acute) Acute renal failure (Acute) Subjective: no new complaints - Physical Exam General: Alert, Oriented x3, Cooperative HEENT: Atraumatic, PERRLA, EOMI, Normocephalic Neck: Supple, No JVD, Negative Carotid Bruits Lungs: Clear to auscultation, Normal air movement Cardiovascular: Regular rate, No murmurs Abdomen: Bowel Sounds Present, Soft, Non Tender Extremities: No edema, Capillary Refill Less than 3 Seconds Skin: No rashes, No breakdown Musculoskeletal: No Tenderness to Palpation of Joints or Extremities Neurological: Cranial nerves II-XII grossly intact Psych/Mental Status: Normal Affect, Appropriate Vital Signs Temp Pulse Resp BP Pulse Ox 97.1 F L 68 18 123/85 H 100 06/30/18 12:28 06/30/18 12:28 06/30/18 12:28 06/30/18 12:28 06/30/18 12:28 Oxygen Flow Rate (L/min) 1 Oxygen Delivery Method Room Air Weight: 84.6 kg Body Mass Index (BMI) 24.3 Intake and Output for Last 24 Hours 06/28/18 06/29/18 06/30/18 23:59 23:59 23:59 Intake Total 4597.7 / 4597.7 3974 / 3974 1364.4 / 1364.4 Output Total 1200 / 1200 1545 / 1545 460 / 460 Balance 3397.7 / 3397.7 2429 / 2429 904.4 / 904.4 Laboratory Tests Past 24 Hrs 06/30/18 06/30/18 06:00 06:00 WBC 5.8 RBC 2.62 L Hgb 8.3 L Hct 25.4 L MCV 96.9 H MCH 31.7 MCHC 32.7 RDW 13.5 RDW Differential 44.9 H Plt Count 95 L MPV 11.5 Immature Gran % (Auto) 0.700 Neut % (Auto) 55.2 Lymph % (Auto) 28.1 [place] % (Auto) 11.0 H Eos % (Auto) 4.8 Baso % (Auto) 0.2 Absolute Neuts (auto) 3.2 Absolute Lymphs (auto) 1.63 Total Counted Not Reportable Sodium 143 Potassium 4.1 Chloride 114 H Carbon Dioxide 22.0 Anion Gap 7 BUN 31 H Creatinine 1.39 H Estim Creat Clear Calc 54.28 Est GFR (MDRD) Af Amer 65 Est GFR (MDRD) Non-Af 54 L BUN/Creatinine Ratio 22.3 H Glucose 112 H Calcium 7.6 L Medical Necessity - Tobacco Use Smoking Status: Former smoker Assessment/Plan All Active Problems (Last Reviewed 06/28/18 @ 12:15 by Pop Stahl MD) Pneumobilia (Acute) Syncope (Acute) Atrial fibrillation with RVR (Acute) Hyperkalemia (Acute) Acute renal failure (Acute) 1. Acute kidney injury. Baseline SCr 1.03 mg/dL (August 2017). BLAYNE is likely due to prerenal azotemia->ATN from volume depletion. FENa was <1% on presentation. CT of abdomen did not show hydronephrosis though it did show renal vascular calcification. Pt has been on losartan and spironolactone which likely worsened renal function. 2. Hyperkalemia. Resolved. Did require dialysis x 1 on 06/27/18. Continue to hold ARB and aldosterone antagonist. better 3. Metabolic acidosis. Improved. better 4. Shock. Probably hypovolemic shock. Improved. 5. Pneumobilia. Surgery evaluation. 6. UGIB. For EGD.
--- NOTE | 2018-06-30 14:38 | PCM.PN.SRG ---
Patient Problems: Active and Suspected Problems (Last Reviewed 06/28/18 @ 12:15 by Pop Stahl MD) Pneumobilia (Acute) Syncope (Acute) Atrial fibrillation with RVR (Acute) Hyperkalemia (Acute) Acute renal failure (Acute) Subjective: Patient has had no episodes of rectal bleeding or hematemesis. Passing flatus no bowel movements. Objective: Abdomen is soft - Physical Exam Vital Signs Temp Pulse Resp BP Pulse Ox 97.1 F L 71 18 123/85 H 100 06/30/18 12:28 06/30/18 12:45 06/30/18 12:28 06/30/18 12:28 06/30/18 12:28 Oxygen Flow Rate (L/min) 1 Oxygen Delivery Method Room Air Weight: 199 lb 15.348 oz Body Mass Index (BMI) 24.3 Intake and Output for Last 24 Hours 06/28/18 06/29/18 06/30/18 23:59 23:59 23:59 Intake Total 4597.7 / 4597.7 3974 / 3974 1364.4 / 1364.4 Output Total 1200 / 1200 1545 / 1545 460 / 460 Balance 3397.7 / 3397.7 2429 / 2429 904.4 / 904.4 Laboratory Tests Past 24 Hrs 06/30/18 06/30/18 06:00 06:00 WBC 5.8 RBC 2.62 L Hgb 8.3 L Hct 25.4 L MCV 96.9 H MCH 31.7 MCHC 32.7 RDW 13.5 RDW Differential 44.9 H Plt Count 95 L MPV 11.5 Immature Gran % (Auto) 0.700 Neut % (Auto) 55.2 Lymph % (Auto) 28.1 [place] % (Auto) 11.0 H Eos % (Auto) 4.8 Baso % (Auto) 0.2 Absolute Neuts (auto) 3.2 Absolute Lymphs (auto) 1.63 Total Counted Not Reportable Sodium 143 Potassium 4.1 Chloride 114 H Carbon Dioxide 22.0 Anion Gap 7 BUN 31 H Creatinine 1.39 H Estim Creat Clear Calc 54.28 Est GFR (MDRD) Af Amer 65 Est GFR (MDRD) Non-Af 54 L BUN/Creatinine Ratio 22.3 H Glucose 112 H Calcium 7.6 L Medical Necessity - Tobacco Use Smoking Status: Former smoker Assessment/Plan All Active Problems (Last Reviewed 06/28/18 @ 12:15 by Pop Stahl MD) Pneumobilia (Acute) Syncope (Acute) Atrial fibrillation with RVR (Acute) Hyperkalemia (Acute) Acute renal failure (Acute) My plan will be to perform an upper endoscopy tomorrow around noon.
[2018-06-30] MEDS: DiphenhydrAMINE 25 MG Capsule PO (21:54)
[2018-07-01] VITALS (17 sets, daily range): BP systolic 93–183; BP diastolic 50–153; PULSE 60–87; RESP 16–18; TEMP 36.6–37; O2SAT 96–98
--- NOTE | 2018-07-01 | IMM_PTH ---
PATIENT: GIANA TANG LOC: [facility] U#:[id number] AGE/SX: 68/M ROOM: [facility] RE06/27/[address]: Dr. Sabrina Martinez MD : 1950 BED: 1 DIS: 07/02/2018 SPEC #: [id number] RECD: 07/01/18 14:26 STATUS: SOUMartha REQ #: [id number] LILIANA: 07/01/18 00:[address]: Pop Stahl DEPT: IMMUNOHISTOCHEMISTRY RECD BY: Vivi Woodward ENTERED: 07/01/18 14:27 SP TYPE: IMMUNO OTHR DR: MD Dr. Pop Hidalgo MD Dr. Ghasem E Ashelfah, MD Dr. Mark Elderbrock, MD Dr. Nicholas F Kotsonis, MD Dr. Natthavat Tanphaichitr, MD Tissues: Stomach, NOS Procedures: H Pylori (initial) Comments: @ Ordering doctor for H.PYLORI edited from to @ by LYDIA at 07/01/18 1428 @ Submitting doctor edited from to @ by LYDIA at 07/01/18 1428 PHYSICIAN & [place] [id number] SPECIMEN INFORMATION: Tissue Source: Antral biopsy Clinical Info: GI bleed Specimen Number: [id number] CPT code: 59635 METHODOLOGY: Deparaffinized sections of prefer/formalin-fixed tissue or PAP/DQ stained slides are incubated with monoclonal/polyclonal antibodies/oligonucleotide probes. Localization is made via biotin free immunoperoxidase method. Appropriate controls are performed and reacted as expected. Results on target cell population are indicated in the following table: RESULTS: ANTIBODY / CLONE RESULT H Pylori (polyclonal) negative These tests were developed and their performance characteristics determined by [facility]. They may not have been cleared or approved by the U.S. Food and Drug Administration. The FDA has determined that such clearance or approval is not necessary. INTERPRETATION: Antral biopsy: Negative for Helicobacter pylori organisms. AM:annabella 07/02/18
[2018-07-01 09:05] LABS: Absolute Lymphocyte Count 1.55 X10^3/ul (0.83-4.51); Eosinophil# 0.25 X10^3/uL; Eosinophils% 3.8 % (0-5); Hematocrit 27.6 % (40-54); Hemoglobin 9.1 g/dl (13.0-16.5); Lymphocyte # 1.55 X10^3/ul (4.0); Lymphocyte % 23.8 % (19-41); Mean Corpuscular Hgb 31.3 pg (27.0-32.0); Mean Corpuscular Volume 94.8 fL (80-94); Mean Platelet Vol. 11.8 fl (6.2-12.0); Monocyte# 0.66 X10^3/uL; Monocyte% 10.1 % (0-10); Neutrophil # 4.03 X10^3/uL (2.7-7.7); Platelet Count 103 K/mm3 (150-450); RBC Distribution Width CV 13.6 % (11.6-14.6); RBC Distribution Width SD 47.2 fl (35.1-43.9); Red Blood Count 2.91 M/mm3 (4.6-6.2); White Blood Count 6.5 K/mm3 (4.4-11.0)
[2018-07-01 09:06] LABS: POSITIVE COUNT NO; POSITIVE DIFFERENTIAL NO; POSITIVE MORPHOLOGY NO
[2018-07-01 09:21] LABS: Anion Gap 7 (5-15); BUN 20 mg/dL (7-18); BUN/Creat Ratio 16.8 RATIO (10-20); Calcium,Total 7.8 mg/dL (8.5-10.1); Chloride 114 mmol/L (98-107); Creatinine, Serum 1.19 mg/dL (0.70-1.30); EST Glomerular Filtration Rate 64 mL/min (>60); Est Glom Filt Rate - Afr Amer 78 mL/min (>60); Glucose 96 mg/dL (74-106); Potassium 4.2 mmol/L (3.5-5.1); Sodium Level 143 mmol/L (136-145)
--- NOTE | 2018-07-01 10:45 | PN_ITS ---
Subjective: Patient transferred out of the intensive care unit yesterday. Patient reporting he had a panic attack this morning, but overall denies any dyspnea or other issues. Patient states he has severe anxiety secondary to the fact that he is in the hospital and unable to care for his with cancer. Patient has been able to urinate after removal of the Solorzano catheter. Objective: Patient to have an EGD later today. General: Alert, Oriented x3, Cooperative, No apparent distress, - - Improved color today. Appears stated age. Speaking in full sentences. HEENT: Atraumatic, PERRLA, EOMI, Normocephalic, - - No scleral icterus or injection noted. Oral: Moist Mucosa, No Gingival or Mucosal Lesions/ Ulcerations Neck: Supple, No JVD, No Nodes, Trachea Midline Lungs: No rhonchi, No wheeze, No rales, Diminished, - - Fair effort. Cardiovascular: Regular rate, Regular Rhythm, Normal S1, Normal S2, No murmurs, No rub noted, No Gallop Abdomen: Bowel Sounds Present, Soft, Non Tender, Non-Distended Extremities: No cyanosis, Capillary Refill Less than 3 Seconds, Clubbing, Edema Skin: No rashes, No breakdown Musculoskeletal: No Tenderness to Palpation of Joints or Extremities Lymphatic: No Cervical, Supraclavicular, or Inguinal Adenopathy Neurological: Cranial nerves II-XII grossly intact, Neuro grossly intact, Motor Exam 5/5 strength throughout Psych/Mental Status: Normal Affect, Anxious Vital Signs Temp Pulse Resp BP Pulse Ox 36.7 C 68 18 147/94 H 98 07/01/18 10:07/01/18 10:00 07/01/18 10:00 07/01/18 10:07/01/18 10:00 Oxygen Flow Rate (L/min) 1 Oxygen Delivery Method Room Air Weight: 89.4 kg Body Mass Index (BMI) 24.3 Intake and Output for Last 24 Hours 06/29/18 06/30/18 07/01/18 23:59 23:59 23:59 Intake Total 3974 / 3974 1364.4 / 1364.4 240 / 240 Output Total 1545 / 1545 960 / 960 1100 / 1100 Balance 2429 / 2429 404.4 / 404.4 -860 / -860 Labs (Last 48 Hours) 08/06/30/18 07/01/18 06:00 06:00 08:45 WBC 5.8 6.5 RBC 2.62 L 2.91 L Hgb 8.3 L 9.1 L Hct 25.4 L 27.6 L MCV 96.9 H 94.8 H MCH 31.7 31.3 MCHC 32.7 33.0 RDW 13.5 13.6 RDW Differential 44.9 H 47.2 H Plt Count 95 L 103 L MPV 11.5 11.8 Immature Gran % (Auto) 0.700 0.300 Neut % (Auto) 55.2 62.0 Lymph % (Auto) 28.1 23.8 [place] % (Auto) 11.0 H 10.1 H Eos % (Auto) 4.8 3.8 Baso % (Auto) 0.2 0.0 Absolute Neuts (auto) 3.2 4.0 Absolute Lymphs (auto) 1.63 1.55 Total Counted Not Reportable Not Reportable Sodium 143 Potassium 4.1 Chloride 114 H Carbon Dioxide 22.0 Anion Gap 7 BUN 31 H Creatinine 1.39 H Estim Creat Clear Calc 54.28 Est GFR (MDRD) Af Amer 65 Est GFR (MDRD) Non-Af 54 L BUN/Creatinine Ratio 22.3 H Glucose 112 H Calcium 7.6 L 07/01/18 08:45 WBC RBC Hgb Hct MCV MCH MCHC RDW RDW Differential Plt Count MPV Immature Gran % (Auto) Neut % (Auto) Lymph % (Auto) [place] % (Auto) Eos % (Auto) Baso % (Auto) Absolute Neuts (auto) Absolute Lymphs (auto) Total Counted Sodium 143 Potassium 4.2 Chloride 114 H Carbon Dioxide 22.0 Anion Gap 7 BUN 20 H Creatinine 1.19 Estim Creat Clear Calc 63.40 Est GFR (MDRD) Af Amer 78 Est GFR (MDRD) Non-Af 64 BUN/Creatinine Ratio 16.8 Glucose 96 Calcium 7.8 L Medical Necessity - Tobacco Use Smoking Status: Former smoker Assessment/Plan All Active Problems (Last Reviewed 06/28/18 @ 12:15 by Pop Stahl MD) Pneumobilia (Acute) Syncope (Acute) Atrial fibrillation with RVR (Acute) Hyperkalemia (Acute) Acute renal failure (Acute) RECOMMENDATIONS: 1. Await results of EGD 2. Okay to give low-dose diuretic therapy from my perspective 3. Crease activity as tolerated, continue PT/OT 4. Increase activity as tolerated 5. Likely okay to discontinue steroids after 5 days 6. Hemodynamically stable on room air. Will sign off from a critical care perspective IMPRESSIONS: 1. Acute renal failure/hyperkalemia RESOLVED > unclear etiology at this time. Patient's fractional excretion of sodium is less than 1% initially. Patient has received significant volume resuscitation. Hemodialysis catheter was removed yesterday. Patient's creatinine appears to be approaching normal range at this time. Hyperkalemia and hypernatremia are much improved. Will discontinue IV fluids. Solorzano catheter can be removed. 2. Probable acute upper GI bleed Patient is reporting 2-3 days of black stools prior to admission. Patient does take aspirin, but no other NSAIDs are reported. Patient is on Plavix at baseline. H&H has continued to fall throughout the hospitalization. This has been associated with fluid resuscitation, but patient has had over a 5 g drop in hemoglobin. Patient to have an EGD today 3. Non-anion gap metabolic acidosis RESOLVED > Clinical suspicion for significant acidosis related to acute renal failure. Patient's lactate is within normal limits. Appears to be all secondary to renal failure 4. A. fib with RVR/coronary artery disease RESOLVED > cardiology is currently following. Patient has remained in normal sinus rhythm after normalization of electrolytes. Patient is currently off of amiodarone. 5. Syncopal event No further recurrence of syncopal events. Patient has remained in normal sinus rhythm. Patient able to mobilize yesterday without orthostatic type symptoms. 6. Acute hypoxic respiratory insufficiency RESOLVED > patient appears to be back to baseline at this time. Patient was on meropenem, but has been afebrile and no leukocytosis has been noted. Will discontinue empiric antibiotics. Doubt patient with acute pneumonia as there is been no infiltrates on chest x-ray despite adequate resuscitation. 7. Reported BPH/advanced age/hypercholesterolemia/hypertension/diet- controlled diabetes mellitus/PVD Complicates care, management, recovery and prognosis. Sliding scale insulin should be sufficient. Reinitiate Plavix per surgery recommendations 8. Shock RESOLVED> unclear etiology of patient's persistent hypotension. Clinical suspicion would be for volume depletion. Patient was placed on antibiotics empirically, but has had no fever, leukocytosis or pulmonary infiltrates appreciated. Surgery believes pneumobilia does not require any intervention and patient does not have a tender abdomen to signify cholangitis. Code Visit Inpatient E&M: 45566 Subs Hosp L2
--- NOTE | 2018-07-01 10:49 | PCM.PN.CARD ---
Subjectve: Patient diagnosed with bilateral upper extremity DVTs yesterday, awaiting EGD to determine if he is an adequate candidate for anticoagulation therapy. Patient complained of black tarry stools prior to arrival, which may have been result of Pepto-Bismol. Hemoglobin is trended downwards from 13.4 down to 8.9 today. Patient denies any chest pain. He also complains of anasarca. His urine output is fairly good however. His positive fluid balance is approximately 8 L since admission. Objective: Vital Signs Temp Pulse Resp BP Pulse Ox 98.0 F 68 18 147/94 H 98 07/01/18 10:00 07/01/18 10:00 07/01/18 10:00 07/01/18 10:00 07/01/18 10:00 Oxygen Flow Rate (L/min) 1 Oxygen Delivery Method Room Air Weight: 197 lb 1.492 oz Body Mass Index (BMI) 24.3 Intake and Output for Last 24 Hours 06/29/18 06/30/18 07/01/18 23:59 23:59 23:59 Intake Total 3974 / 3974 1364.4 / 1364.4 240 / 240 Output Total 1545 / 1545 960 / 960 1100 / 1100 Balance 2429 / 2429 404.4 / 404.4 -860 / -860 General: Awake, Alert, Oriented x 3 HEENT: PERRL, EOMI, Sclera Non Icteric Neck: Supple, Good ROM, No Lymph Node Enlargement Lungs: Clear to auscultation Cardiovascular: Regular Rhythm, Normal S1, Normal S2, No Rubs, No Gallops Murmur Murmur: Grade 2/6, Early Diastolic Vascular: No Carotid Bruits, Normal Femoral Pulses, Normal Radial Pulses, Normal Dorsalis Pedal Pulse, Normal Posterior Tibial Pulses Abdomen: Bowel Sounds Present, Soft, Non Tender, No HSM, No Organomegaly Extremities: No Cyanosis, No Clubbing, No edema, Bilateral Edema +2 Neurological: No Focal Motor or Sensory Deficit 07/01/18 08:45: WBC 6.5, RBC 2.91 L, Hgb 9.1 L, Hct 27.6 L, MCV 94.8 H, MCH 31.3, MCHC 33.0, RDW 13.6, RDW Differential 47.2 H, Plt Count 103 L, MPV 11.8, Immature Gran % (Auto) 0.300, Neut % (Auto) 62.0, Lymph % (Auto) 23.8, [place] % (Auto) 10.1 H, Eos % (Auto) 3.8, Baso % (Auto) 0.0, Absolute Neuts (auto) 4.0, Total Counted Not Reportable 07/01/18 08:45: Sodium 143, Potassium 4.2, Chloride 114 H, Carbon Dioxide 22.0, Anion Gap 7, BUN 20 H, Creatinine 1.19, Est GFR (MDRD) Af Amer 78, Est GFR (MDRD) Non-Af 64, BUN/Creatinine Ratio 16.8, Glucose 96, Calcium 7.8 L Rhythm: EKG: ECHO: Stress Test: Cardiac Cath: PCI: CT Surgery: Holter monitor: EPS: PPM: CXR: Chest CT Scan: Medical Necessity - Tobacco Use Smoking Status: Former smoker Assessment/Plan 1. Coronary artery disease: Patient has no anginal symptoms at this time despite his tachycardia and his abnormal troponin. Patient has acute renal failure on admission and required urgent hemodialysis for both hyperkalemia, and decreased urine output. Would not recommend pursuing catheterization at this time. He has known coronary disease with stents to his LAD. Would recommend and consider a noninvasive stress test once his acute event has resolved. This may be done as an outpatient. Only if the patient has evidence of anterior ischemia would I consider repeat catheterization. Yesterday morning, now that the dust has settled, the patient admits to coffee-ground emesis in the recent past, as well as black tarry stools. This may be related to upper GI bleeding. Would recommend holding his baby aspirin but continuing his Plavix at this time. If the patient is found to have a significant ulcer, we will hold his Plavix as well. Patient is to undergo a diagnostic EGD today for evaluation. Continue PPI. Would recommend keeping his hemoglobin above 10.0 in light of his recent non-STEMI. 2. Acute renal failure: Would recommend holding his spironolactone as well as his lisinopril. Hemodialysis performed on 06/27/18, without complication. Potassium is now 4.3, and creatinine is 1.3 Right femoral venous sheath removed 2 days ago and his right groin is clean/dry/intact without evidence of tenderness or swelling. Patient is proximally 8 L positive on his fluid status, would recommend Lasix 40 mg IV daily until his fluid balance normalizes. The patient complains of anasarca. Would not recommend restarting spironolactone. 3. Atrial fibrillation: Patient required urgent synchronized DC cardioversion last evening for hypotension and tachycardia. Patient converted to normal sinus rhythm on a single shock without difficulty and is remained in sinus rhythm ever since. IV amiodarone infusion completed. We will hold off on p.o. amiodarone at this time. In addition now that he is more stabilized would recommend starting him on low-dose beta-becky therapy such as Lopressor 12.5 mg p.o. twice daily. The patient was on Lopressor 50 mg p.o. twice daily. 4. Hyperlipidemia: We will obtain fasting lipid profile. Hold on Pravachol for now. 5. Discussed with Elliot. Thank you very much for the opportunity to participate in the cardiac care of your patient. Code Visit Inpatient E&M: 24373 Subs Hosp L2
[2018-07-01] MEDS: 0.9% NaCl Peripheral Flush Adult/Peds IV (11:17)
[2018-07-01] MEDS: Furosemide 40 MG/4 ML Vial IV (11:17)
--- NOTE | 2018-07-01 12:30 | GASB_PTH ---
PATIENT: GIANA TANG LOC: [facility] U#:[id number] AGE/SX: 68/M ROOM: [facility] RE06/27/[address]: Dr. Sabrina Martinez MD : 1950 BED: 1 DIS: 07/02/2018 SPEC #: [id number] RECD: 07/01/18 13:54 STATUS: ELISA REQ #: [id number] LILIANA: 07/01/18 12:[address]: Pop Stahl DEPT: SURGICAL PATHOLOGY RECD BY: Eric Upton ENTERED: 07/01/18 13:54 SP TYPE: Gastric Bx OTHR DR: MD Dr. Pop Hidalgo MD Dr. Daniel Peabody, MD Dr. Ghasem E Ashelfah, MD Dr. Mark Elderbrock, MD Dr. Nicholas F Kotsonis, MD Dr. Natthavat Tanphaichitr, MD Tissues: Gastric mucous membrane Procedures: Surgery Specimen Level IV Comments: @ Ordering doctor for SUIV edited from to @ by LYDIA at 07/01/18 1426 @ Submitting doctor edited from to @ hung FREEMAN at 07/01/18 1426 HEADER OPERATION: EGD ([facility] [place]) PRE-OP DIAGNOSIS: GI bleed TISSUE SUBMITTED: Antral biopsy for history and H. pylori MICROSCOPIC DIAGNOSIS Gastric antrum, biopsy: Strips of benign superficial gastric mucosa. AM:annabella 07/02/18 COMMENT The results of immunohistochemistry for Helicobacter pylori will be reported separately ([id number]). MICROSCOPIC DESCRIPTION Slides are reviewed. GROSS DESCRIPTION Received in fixative is one container labeled with the patient's name and designated antral biopsy. The specimen consists of two irregular fragments of light anderson soft tissue that in aggregate measure 0.2 x 0.2 x 0.1 cm. The specimen is totally submitted in one cassette. / AM:annabella 07/01/18 TC:5 CPT: 63035
--- NOTE | 2018-07-01 12:40 | PCM.OPRPT ---
Problem List (1) Pneumobilia Status: Acute (2) Upper GI bleed Status: Acute Report of Operation Date of Procedure: 07/01/18 Pre-Operative Diagnosis: Pneumobilia. Upper GI bleed Post-Operative Diagnosis: Same Surgery/Procedure Performed:: Esophagogastroduodenoscopy with biopsy Type of Anesthesia:: MAC Description of Procedure: Patient was brought into the endoscopy suite. The back of his throat was sprayed with Cetacaine spray. A bite block was placed. He was given graded anesthesia. Scope was inserted into the back of the oropharynx and directed down through the esophagus into the stomach and into the duodenum. Operative findings: 1. Duodenum: Normal appearance no mass lesions no ulcerations a side view of the sphincter of Oddi all appeared normal. I was unable to see posterior to this though. 2. Stomach: Minimal antral gastritis was identified cold biopsy for H. pylori was obtained and sent to pathology. Rest of the stomach appeared normal there was no signs of any hiatal hernia there is no mass lesions and there was no ulcerations. 3. Esophagus: Normal appearance no mass lesions no ulcerations no esophagitis. The scope was withdrawn and the patient tolerated the procedure well. No apparent source of upper GI bleed. No masses seen in the duodenum. Would recommend probably an MRCP as an outpatient for evaluation of pneumobilia. - Admit VTE Documentation VTE Present on Admission: No VTE Mechan Device Prophylaxis: None VTE Pharm Prophylaxis ordered?: No Reason prophylaxis not ordered:: Treatment Not Indicated
--- NOTE | 2018-07-01 12:47 | PCM.PN.REN ---
Patient Problems: Active and Suspected Problems (Last Reviewed 06/28/18 @ 12:15 by Pop Stahl MD) Pneumobilia (Acute) Upper GI bleed (Acute) Syncope (Acute) Atrial fibrillation with RVR (Acute) Hyperkalemia (Acute) Acute renal failure (Acute) Subjective: c/o swelling - Physical Exam General: Alert, Oriented x3, Cooperative HEENT: Atraumatic, PERRLA, EOMI, Normocephalic Neck: Supple, No JVD, Negative Carotid Bruits Lungs: Clear to auscultation, Normal air movement Cardiovascular: Regular rate, No murmurs Abdomen: Bowel Sounds Present, Soft, Non Tender Extremities: No edema, Capillary Refill Less than 3 Seconds Skin: No rashes, No breakdown Musculoskeletal: No Tenderness to Palpation of Joints or Extremities Neurological: Cranial nerves II-XII grossly intact Psych/Mental Status: Normal Affect, Appropriate Vital Signs Temp Pulse Resp BP Pulse Ox 98.0 F 69 18 147/94 H 98 07/01/18 10:00 07/01/18 10:58 07/01/18 10:00 07/01/18 10:00 07/01/18 10:00 Oxygen Flow Rate (L/min) 1 Oxygen Delivery Method Room Air Weight: 89.4 kg Body Mass Index (BMI) 24.3 Intake and Output for Last 24 Hours 06/29/18 06/30/18 07/01/18 23:59 23:59 23:59 Intake Total 3974 / 3974 1364.4 / 1364.4 240 / 240 Output Total 1545 / 1545 960 / 960 1500 / 1500 Balance 2429 / 2429 404.4 / 404.4 -1260 / -1260 Laboratory Tests Past 24 Hrs 07/01/18 07/01/18 08:45 08:45 WBC 6.5 RBC 2.91 L Hgb 9.1 L Hct 27.6 L MCV 94.8 H MCH 31.3 MCHC 33.0 RDW 13.6 RDW Differential 47.2 H Plt Count 103 L MPV 11.8 Immature Gran % (Auto) 0.300 Neut % (Auto) 62.0 Lymph % (Auto) 23.8 Villalba % (Auto) 10.1 H Eos % (Auto) 3.8 Baso % (Auto) 0.0 Absolute Neuts (auto) 4.0 Absolute Lymphs (auto) 1.55 Total Counted Not Reportable Sodium 143 Potassium 4.2 Chloride 114 H Carbon Dioxide 22.0 Anion Gap 7 BUN 20 H Creatinine 1.19 Estim Creat Clear Calc 63.40 Est GFR (MDRD) Af Amer 78 Est GFR (MDRD) Non-Af 64 BUN/Creatinine Ratio 16.8 Glucose 96 Calcium 7.8 L Medical Necessity - Tobacco Use Smoking Status: Former smoker Assessment/Plan All Active Problems (Last Reviewed 06/28/18 @ 12:15 by Pop Stahl MD) Pneumobilia (Acute) Upper GI bleed (Acute) Syncope (Acute) Atrial fibrillation with RVR (Acute) Hyperkalemia (Acute) Acute renal failure (Acute) 1. Acute kidney injury. Baseline SCr 1.03 mg/dL (August 2017). BLAYNE is likely due to prerenal azotemia->ATN from volume depletion. FENa was <1% on presentation. CT of abdomen did not show hydronephrosis though it did show renal vascular calcification. Pt has been on losartan and spironolactone which likely worsened renal function. creatinine now essentially at baseline 2. Hyperkalemia. Resolved. Did require dialysis x 1 on 06/27/18. Continue to hold ARB and aldosterone antagonist. 3. Metabolic acidosis. Improved. better 4. Shock. Probably hypovolemic shock. Improved. 5. Pneumobilia. Surgery evaluation. EGD is ok. ERCP as outpatient 6. Edema. started on lasix today as per cardiology
--- NOTE | 2018-07-01 15:00 | NURSING ---
PICC lined removed by Dr. Canada at this time, held pressure for 2 minutes, tip intact, pt tolerated well.
--- NOTE | 2018-07-01 15:07 | PCM.PROGNOTE ---
<Elliot Drew - Last Filed: 07/01/18 15:07> Patient Problems: Active and Suspected Problems (Last Reviewed 06/28/18 @ 12:15 by Pop Stahl MD) Pneumobilia (Acute) Upper GI bleed (Acute) Syncope (Acute) Atrial fibrillation with RVR (Acute) Hyperkalemia (Acute) Acute renal failure (Acute) Subjective: No BM yet. No abdominal pain. No SOB, cough. Swelling and pain BL upper extremities. None lower. No fever / chills. No CP. - Physical Exam General: Alert, Oriented x3, Cooperative HEENT: Atraumatic, PERRLA, EOMI, Normocephalic Neck: Supple, No JVD, Negative Carotid Bruits Lungs: Clear to auscultation, Normal air movement Cardiovascular: Regular rate, No murmurs Abdomen: Bowel Sounds Present, Soft, Non Tender Extremities: No edema, Capillary Refill Less than 3 Seconds Skin: No rashes, No breakdown Musculoskeletal: No Tenderness to Palpation of Joints or Extremities Neurological: Cranial nerves II-XII grossly intact Psych/Mental Status: Normal Affect, Appropriate, Alert and oriented to time, place, person, mood and affect Vital Signs Temp Pulse Resp BP Pulse Ox 98.3 F 69 18 144/90 H 97 07/01/18 14:00 07/01/18 14:00 07/01/18 14:00 07/01/18 14:00 07/01/18 14:00 Oxygen Flow Rate (L/min) 1 Oxygen Delivery Method Room Air Weight: 197 lb 1.492 oz Body Mass Index (BMI) 24.3 Intake and Output for Last 24 Hours 06/29/18 06/30/18 07/01/18 23:59 23:59 23:59 Intake Total 3974 / 3974 1364.4 / 1364.4 540 / 540 Output Total 1545 / 1545 960 / 960 1700 / 1700 Balance 2429 / 2429 404.4 / 404.4 -1160 / -1160 Laboratory Tests Past 24 Hrs 07/01/18 07/01/18 08:45 08:45 WBC 6.5 RBC 2.91 L Hgb 9.1 L Hct 27.6 L MCV 94.8 H MCH 31.3 MCHC 33.0 RDW 13.6 RDW Differential 47.2 H Plt Count 103 L MPV 11.8 Immature Gran % (Auto) 0.300 Neut % (Auto) 62.0 Lymph % (Auto) 23.8 [place] % (Auto) 10.1 H Eos % (Auto) 3.8 Baso % (Auto) 0.0 Absolute Neuts (auto) 4.0 Absolute Lymphs (auto) 1.55 Total Counted Not Reportable Sodium 143 Potassium 4.2 Chloride 114 H Carbon Dioxide 22.0 Anion Gap 7 BUN 20 H Creatinine 1.19 Estim Creat Clear Calc 63.40 Est GFR (MDRD) Af Amer 78 Est GFR (MDRD) Non-Af 64 BUN/Creatinine Ratio 16.8 Glucose 96 Calcium 7.8 L Medical Necessity - Tobacco Use Smoking Status: Former smoker Assessment/Plan All Active Problems (Last Reviewed 06/28/18 @ 12:15 by Pop Stahl MD) Pneumobilia (Acute) Upper GI bleed (Acute) Syncope (Acute) Atrial fibrillation with RVR (Acute) Hyperkalemia (Acute) Acute renal failure (Acute) 1. BLAYNE - resolved. Cath out. Renal following. No further aldactone. Losartan dc'd for this. Ideally he will resume this when ok per nephrology given his cardiac hx. 2. Pneumobilia unclear etiology - camille dc'd. No abdominal pain/tenderness. Surgery following. Seen on CT. Outpatient MRCP. 3. ? GI bleed - EGD negative. Black stools prior to admit. Was on pepto. Hgb improved today. Hemoccult pending. No BM. PPI bid. 4. Acute upper extremity DVT etiology unclear - Start xarelto. Monitor for bleed. See duplex report. 5. Afib with RVR - Palafox following. Stable NSR s/p cardioversion and amio drip. Xarelto, metoprolol. 6. NSTEMI - per cariology no plan for stress/cath. Known stents. Cardiology recommends hold asa, continue plavix as no ulcer found. 5. DMt2 - stable. Continue current therapy. 6. Metabolic acidosis resolved. DVT ppx: xarelto DC planning : home if stable on xarelto tomorrow. This patient was seen by Elliot Drew PA-C under the supervision of Doctor Dread. <Naun Canada - Last Filed: 07/01/18 15:36> - Physical Exam Vital Signs Temp Pulse Resp BP Pulse Ox 98.3 F 69 18 144/90 H 97 07/01/18 14:00 07/01/18 14:00 07/01/18 14:00 07/01/18 14:00 07/01/18 14:00 Oxygen Flow Rate (L/min) 1 Oxygen Delivery Method Room Air Weight: 197 lb 1.492 oz Body Mass Index (BMI) 24.3 Intake and Output for Last 24 Hours 06/29/18 06/30/18 07/01/18 23:59 23:59 23:59 Intake Total 3974 / 3974 1364.4 / 1364.4 540 / 540 Output Total 1545 / 1545 960 / 960 1700 / 1700 Balance 2429 / 2429 404.4 / 404.4 -1160 / -1160 Laboratory Tests Past 24 Hrs 07/01/18 07/01/18 08:45 08:45 WBC 6.5 RBC 2.91 L Hgb 9.1 L Hct 27.6 L MCV 94.8 H MCH 31.3 MCHC 33.0 RDW 13.6 RDW Differential 47.2 H Plt Count 103 L MPV 11.8 Immature Gran % (Auto) 0.300 Neut % (Auto) 62.0 Lymph % (Auto) 23.8 [place] % (Auto) 10.1 H Eos % (Auto) 3.8 Baso % (Auto) 0.0 Absolute Neuts (auto) 4.0 Absolute Lymphs (auto) 1.55 Total Counted Not Reportable Sodium 143 Potassium 4.2 Chloride 114 H Carbon Dioxide 22.0 Anion Gap 7 BUN 20 H Creatinine 1.19 Estim Creat Clear Calc 63.40 Est GFR (MDRD) Af Amer 78 Est GFR (MDRD) Non-Af 64 BUN/Creatinine Ratio 16.8 Glucose 96 Calcium 7.8 L Assessment/Plan Addendum: Dr. Canada I personally examined the patient and reviewed the chart. I agree with the above. He has continued to improve. He had an upper extremity bilateral Doppler that demonstrated superficial blood clots however he did have one deep blood clot in the radial vein and so he does have to be started on anticoagulation with Xarelto. He did also have a finding of pneumobilia of uncertain etiology, he is asymptomatic and this does not seem to be of any clinical significance and therefore he will need an outpatient MRCP for further follow-up Code Visit Inpatient E&M: 61531 Subs Hosp L2
[2018-07-01] MEDS: Rivaroxaban 15 MG Tablet PO (17:22)
--- NOTE | 2018-07-01 19:59 | NURSING ---
Attempt IV start x 1 in right foot. Unable to obtain access.
[2018-07-01] MEDS: Metoprolol Tartrate 25 MG Tablet 12.5 MG PO (21:20)
[2018-07-01] MEDS: Docusate Sodium 100 MG Capsule PO (21:20)
[2018-07-01] MEDS: Pantoprazole Sodium 40 MG Tablet PO (21:21)
[2018-07-01] MEDS: DiphenhydrAMINE 25 MG Capsule PO (21:35)
[2018-07-02] VITALS (8 sets, daily range): BP systolic 107–159; BP diastolic 61–67; PULSE 64–74; RESP 18–20; TEMP 36.6–36.8; O2SAT 96–99
[2018-07-02 06:53] LABS: Hematocrit 26.8 % (40-54); Hemoglobin 8.6 g/dl (13.0-16.5); Mean Corp Hgb Conc 32.1 g/gl (32-36); Mean Corpuscular Hgb 30.5 pg (27.0-32.0); Mean Platelet Vol. 11.4 fl (6.2-12.0); Platelet Count 112 K/mm3 (150-450); RBC Distribution Width CV 13.6 % (11.6-14.6); RBC Distribution Width SD 47.2 fl (35.1-43.9); Red Blood Count 2.82 M/mm3 (4.6-6.2); White Blood Count 5.9 K/mm3 (4.4-11.0)
[2018-07-02 06:57] LABS: Scan Indicated on CBC? Y/N NO
--- NOTE | 2018-07-02 07:38 | PCM.PN.CARD ---
Subjectve: Patient very upset this morning, and apparently he is quite dissatisfied with my care as well as the care from our office staff. This is the first the patient is bringing this to my attention although he claims that he has brought to our office staff's attention. He claims that he brought me a document of some 33 pages regarding nitroglycerin poisoning, and accused me directly of not listening to him and is regarding his concerns of nitroglycerin poisoning. I have absolutely no recollection of this conversation whether be in the outpatient office and he is certainly not brought to my attention at all during his stay here. He claims that he has told his physicians caring for him in the hospital that he does not wish me to see him any longer however that was not relayed to me during this hospitalization until today. He does not wish to see anyone in our office either. He is essentially terminating his relationship with myself and with our office. Upon my departure from the room, he called me a profane name. From a cardiac standpoint the patient claims he has numbness in both hands, and has not been able to sleep. Telemetry has showed normal sinus rhythm with bursts of atrial fibrillation. He pulled his own IV out last evening and has not received any more IV Lasix. Objective: Vital Signs Temp Pulse Resp BP Pulse Ox 98.3 F 73 20 H 159/67 H 96 07/02/18 02:34 07/02/18 06:44 07/02/18 02:34 07/02/18 02:34 07/02/18 02:34 Oxygen Flow Rate (L/min) 1 Oxygen Delivery Method Room Air Weight: 198 lb 13.711 oz Body Mass Index (BMI) 24.3 Intake and Output for Last 24 Hours 06/30/18 07/01/18 07/02/18 23:59 23:59 23:59 Intake Total 1364.4 / 1364.4 930 / 930 100 / 100 Output Total 960 / 960 1700 / 1700 Balance 404.4 / 404.4 -770 / -770 100 / 100 General: Awake, Alert, Oriented x 3 HEENT: PERRL, EOMI, Sclera Non Icteric Neck: Supple, Good ROM, No Lymph Node Enlargement Lungs: Clear to auscultation Cardiovascular: Regular Rhythm, Normal S1, Normal S2, No Rubs, No Gallops Murmur Murmur: Grade 2/6, Early Diastolic Vascular: No Carotid Bruits, Normal Femoral Pulses, Normal Radial Pulses, Normal Dorsalis Pedal Pulse, Normal Posterior Tibial Pulses Abdomen: Bowel Sounds Present, Soft, Non Tender, No HSM, No Organomegaly Extremities: No Cyanosis, No Clubbing, No edema Neurological: No Focal Motor or Sensory Deficit 07/01/18 08:45: WBC 6.5, RBC 2.91 L, Hgb 9.1 L, Hct 27.6 L, MCV 94.8 H, MCH 31.3, MCHC 33.0, RDW 13.6, RDW Differential 47.2 H, Plt Count 103 L, MPV 11.8, Immature Gran % (Auto) 0.300, Neut % (Auto) 62.0, Lymph % (Auto) 23.8, Cobb % (Auto) 10.1 H, Eos % (Auto) 3.8, Baso % (Auto) 0.0, Absolute Neuts (auto) 4.0, Total Counted Not Reportable 07/01/18 08:45: Sodium 143, Potassium 4.2, Chloride 114 H, Carbon Dioxide 22.0, Anion Gap 7, BUN 20 H, Creatinine 1.19, Est GFR (MDRD) Af Amer 78, Est GFR (MDRD) Non-Af 64, BUN/Creatinine Ratio 16.8, Glucose 96, Calcium 7.8 L 07/02/18 06:20: WBC 5.9, RBC 2.82 L, Hgb 8.6 L, Hct 26.8 L, MCV 95.0 H, MCH 30.5, MCHC 32.1, RDW 13.6, RDW Differential 47.2 H, Plt Count 112 L, MPV 11.4 Rhythm: Normal sinus rhythm with burst of self limiting atrial fibrillation. EKG: ECHO: Stress Test: Cardiac Cath: PCI: CT Surgery: Holter monitor: EPS: PPM: CXR: Chest CT Scan: Medical Necessity - Tobacco Use Smoking Status: Former smoker Assessment/Plan 1. Coronary artery disease: Patient has no anginal symptoms at this time despite his tachycardia and his abnormal troponin. Patient has acute renal failure on admission and required urgent hemodialysis for both hyperkalemia, and decreased urine output. Would not recommend pursuing catheterization at this time. He has known coronary disease with stents to his LAD. Would recommend and consider a noninvasive stress test once his acute event has resolved. This may be done as an outpatient. Only if the patient has evidence of anterior ischemia would I consider repeat catheterization. Patient complained of black tarry stools as well as coffee-ground emesis several days after his admission. An EGD performed yesterday by Dr. Stahl demonstrated no significant overt bleeding. Recommend holding his baby aspirin for 1 week's time and continuing Plavix 75 mg p.o. daily. 2. Acute renal failure: Would recommend holding his spironolactone as well as his lisinopril. Hemodialysis performed on 06/27/18, without complication. Potassium is now 4.3, and creatinine is 1.19 Right femoral venous sheath removed 3 days ago and his right groin is clean/dry/intact without evidence of tenderness or swelling. Patient is proximally 8 L positive on his fluid status, and we began IV diuresis yesterday, but the patient pulled out his IV last evening. Recommend starting Lasix 40 mill grams p.o. daily for fluid balance. The patient complains of anasarca. Would not recommend restarting spironolactone. 3. Atrial fibrillation: Patient required urgent synchronized DC cardioversion last evening for hypotension and tachycardia. Patient converted to normal sinus rhythm on a single shock without difficulty and is remained in sinus rhythm ever since. IV amiodarone infusion completed, but I do not continue p.o. amiodarone. We will hold off on p.o. amiodarone at this time. Recommend increasing Lopressor to 25 mg p.o. twice daily given his paroxysmal atrial fibrillation. He was on a maximum dose of Lopressor 50 mg p.o. twice daily as an outpatient. 4. Hyperlipidemia: We will obtain fasting lipid profile. Hold on Pravachol for now. 5. Bilateral upper extremity DVTs: The patient had an EGD yesterday which showed no overt bleeding despite his claim of black tarry stools. He apparently was on Pepto-Bismol which may have contributed to his black tarry stools. He is currently on Plavix therapy. Would recommend initiating Xarelto therapy for anticoagulation. Patient has paroxysmal atrial fibrillation which will cover both DVT as well as preventing CVA. 6. 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 He claims that I ignored his claims about nitroglycerin toxicity and that he brought me a document in our office of which I have no recollection. He also claims at our nursing staff ignored his claims about nitroglycerin as well and he feels that the administration of nitroglycerin poisoned him. I told him that I do not recall the conversation, and upon review of his home medications he was on no long-acting nitroglycerin but only was on sublingual nitroglycerin as needed. The patient states that he does not want me to be his physician any longer and also claims that he has told other physicians this during his hospital stay. He also does not wish for any of my partners to see him either. Although this is a unfortunate series of events, I respect his wishes to terminate our relationship. This is the first time hearing of this, and will respect his wishes. I thanked him for his service in [facility], and wished him the best of luck going forward. I reiterated the patient in my conversation to his new hospitalist Dr. Rincon, and should the patient require any cardiac care outside of this facility he will need to be transferred to an outside facility as Dr. Rivera the only other athletic agent outside of our group does not come to the hospital for consultations. Patient will no longer be following up in our office. We will make arrangements for the patient to be seen by Dr. Rivera should he wish to do so. Code Visit Inpatient E&M: 29467 Init Hosp L2
[2018-07-02] MEDS: Rivaroxaban 15 MG Tablet PO (08:28)
[2018-07-02] MEDS: Metoprolol Tartrate 25 MG Tablet PO (08:28)
[2018-07-02] MEDS: Docusate Sodium 100 MG Capsule PO (08:28)
[2018-07-02] MEDS: Furosemide 40 MG Tablet PO (08:28)
[2018-07-02] MEDS: Acetaminophen 325 MG Tablet 650 MG PO (08:29)
[2018-07-02] MEDS: Pantoprazole Sodium 40 MG Tablet PO (08:29)
[2018-07-02] MEDS: Polyethylene Glycol 3350 17 GM PACKET PO (08:29)
[2018-07-02] MEDS: DiphenhydrAMINE 25 MG Capsule PO (10:37)
--- NOTE | 2018-07-02 11:15 | CASEMGMT ---
This RN CM to room to f/u with pt regarding discharge planning. Therapy is recommending [facility] at this time. Pt agrees to [facility]HC at this time for RN, PT/OT and states he [facility] because 'Everyone here has been so nice so far.' Pt also inquiring about hematology referral at this time. Pt states no longer would like to see [facility] for Cardiology and states has seen Dr. Rivera in the past but refuses to go back to him. Advised pt that there are really no other options in [place] for cardiology and asked pt in which other city he would like this RN CM to get cardiology contact info for and pt states at that time that he liked Dr. Leon and would be willing to see him if Dr. Leon is willing to see him. Message left for Dr. Leon's secretary of state at this time. Pt also provided with information on the [facility] agency on aging at this time as future resource. Pt states that he believes that he might be connected to them already but will call to see if there is anything else that they could help him and his with. Pt voices no further questions/concerns/needs at this time. SStaten ANISA CM
--- NOTE | 2018-07-02 14:10 | PCM.PN.REN ---
Patient Problems: Active and Suspected Problems (Last Reviewed 06/28/18 @ 12:15 by Pop Stahl MD) Pneumobilia (Acute) Upper GI bleed (Acute) Syncope (Acute) Atrial fibrillation with RVR (Acute) Hyperkalemia (Acute) Acute renal failure (Acute) Subjective: no new complaints - Physical Exam General: Alert, Oriented x3, Cooperative HEENT: Atraumatic, PERRLA, EOMI, Normocephalic Neck: Supple, No JVD, Negative Carotid Bruits Lungs: Clear to auscultation, Normal air movement Cardiovascular: Regular rate, No murmurs Abdomen: Bowel Sounds Present, Soft, Non Tender Extremities: No edema, Capillary Refill Less than 3 Seconds Skin: No rashes, No breakdown Musculoskeletal: No Tenderness to Palpation of Joints or Extremities Neurological: Cranial nerves II-XII grossly intact Psych/Mental Status: Normal Affect, Appropriate Vital Signs Temp Pulse Resp BP Pulse Ox 97.8 F 64 20 H 134/67 H 98 07/02/18 08:30 07/02/18 11:00 07/02/18 08:30 07/02/18 08:30 07/02/18 08:30 Oxygen Flow Rate (L/min) 1 Oxygen Delivery Method Room Air Weight: 90.2 kg Body Mass Index (BMI) 24.3 Intake and Output for Last 24 Hours 06/30/18 07/01/18 07/02/18 23:59 23:59 23:59 Intake Total 1364.4 / 1364.4 930 / 930 580 / 580 Output Total 960 / 960 1700 / 1700 Balance 404.4 / 404.4 -770 / -770 580 / 580 Laboratory Tests Past 24 Hrs 07/02/18 06:20 WBC 5.9 RBC 2.82 L Hgb 8.6 L Hct 26.8 L MCV 95.0 H MCH 30.5 MCHC 32.1 RDW 13.6 RDW Differential 47.2 H Plt Count 112 L MPV 11.4 Medical Necessity - Tobacco Use Smoking Status: Former smoker Assessment/Plan All Active Problems (Last Reviewed 06/28/18 @ 12:15 by Pop Stahl MD) Pneumobilia (Acute) Upper GI bleed (Acute) Syncope (Acute) Atrial fibrillation with RVR (Acute) Hyperkalemia (Acute) Acute renal failure (Acute) 1. Acute kidney injury. Baseline SCr 1.03 mg/dL (August 2017). BLAYNE is likely due to prerenal azotemia->ATN from volume depletion. FENa was <1% on presentation. CT of abdomen did not show hydronephrosis though it did show renal vascular calcification. Pt has been on losartan and spironolactone which likely worsened renal function. creatinine now essentially at baseline 2. Hyperkalemia. Resolved. Did require dialysis x 1 on 06/27/18. Continue to hold ARB and aldosterone antagonist. 3. Metabolic acidosis. Improved. better 4. Shock. Probably hypovolemic shock. Improved. 5. Pneumobilia. Surgery evaluation. EGD is ok. ERCP as outpatient 6. Edema. started on lasix. ok to send home on once a day dosing. stop at home if edema resolves
--- NOTE | 2018-07-02 15:18 | CASEMGMT ---
Addendum entered by Viv Carrillo 07/02/18 15:36: This RN CM is unsure at this time if pt will be sent home on Xarelto. According to [facility] website, Xarelto is a brand preferred, tier 3 med. pricila Noonan RN, aware of all and provided with Xarelto coupon card at this time, voices understanding. Onelia LANGE CM Original Note: This RN CM received call back from Dr. Leon's junior legal secretary and according to her, pt had actually 'fired' Dr. Leon previously also and that [facility] will not be able to take pt on at this time. Pt updated at this time, voices understanding and requests info for [place] cardiologists. Info printed out and provided to pt at this time. Pt updated [facility] and advised him that they would notify him on coverage/co-pay, voices understanding. Pt's is also at bedside and is updated on HHC,etc. at this time, voices understanding. Pt informs this RN CM that he did have an allergic reaction to the Xarelto that he was given but the benadryl/anti-histamine 'helped.' Essie LANGE is aware of this already. Pt voices no further questions/concerns/needs at this time. Pt awaiting dispo. pricila Noonan RN, aware that Xarelto script may need checked once script sent/discharge written, voices understanding. Onelia LANGE CM
--- NOTE | 2018-07-02 16:36 | PCM.DC ---
- Discharge Diagnoses Current Active Problems: Current Active and Chronic Problems (Last Reviewed 06/28/18 @ 12:15 by Pop Stahl MD) Pneumobilia (Acute) Upper GI bleed (Acute) Syncope (Acute) Atrial fibrillation with RVR (Acute) Hyperkalemia (Acute) Acute renal failure (Acute) You will use the following diet at home:: No restrictions Discharge Activity: Return to Normal Activity Allergies/Adverse Reactions: Allergies acetaminophen [From Darvocet-N] Allergy (Unknown, Verified 06/27/18 08:25) Unknown amitriptyline HCl [From Elavil] Allergy (Unknown, Verified 06/27/18 08:25) Unknown atorvastatin calcium [From Lipitor] Allergy (Unknown, Verified 06/27/18 08:25) Unknown azithromycin [From Zithromax] Allergy (Unknown, Verified 06/27/18 08:25) Unknown cefaclor [Cefaclor] Allergy (Unknown, Verified 06/27/18 08:25) Unknown ciprofloxacin [From Cipro] Allergy (Unknown, Verified 06/27/18 08:25) Unknown ciprofloxacin HCl [From Cipro] Allergy (Unknown, Verified 06/27/18 08:25) Unknown hydroxyzine HCl [From Atarax] Allergy (Unknown, Verified 06/27/18 08:25) Unknown influenza virus vaccine, specific [Influenza Virus Vacc,Specific] Allergy (Unknown, Verified 06/27/18 08:25) Unknown iodine Allergy (Unknown, Verified 06/27/18 08:25) Unknown latex Allergy (Unknown, Verified 06/27/18 08:25) Unknown levofloxacin [From Levaquin] Allergy (Unknown, Verified 06/27/18 08:25) Unknown lidocaine Allergy (Unknown, Verified 06/27/18 08:25) Unknown lovastatin Allergy (Unknown, Verified 06/27/18 08:25) Unknown niacin Allergy (Unknown, Verified 06/27/18 08:25) Unknown Penicillins Allergy (Unknown, Verified 06/27/18 08:25) Unknown pneumococcal vaccine [Pneumococcal Vaccine] Allergy (Unknown, Verified 06/27/18 08:25) Unknown propoxyphene napsylate [From Darvocet-N] Allergy (Unknown, Verified 06/27/18 08:25) Unknown quinapril HCl [From Accupril] Allergy (Unknown, Verified 06/27/18 08:25) Unknown red dye Allergy (Unknown, Verified 06/27/18 08:25) Unknown rosuvastatin calcium [From Crestor] Allergy (Unknown, Verified 06/27/18 08:25) Unknown simvastatin Allergy (Unknown, Verified 06/27/18 08:25) Unknown Sulfa (Sulfonamide Antibiotics) Allergy (Unknown, Verified 06/27/18 08:25) Unknown Tetanus Vaccines and Toxoid [Tetanus Vaccines & Toxoid] Allergy (Unknown, Verified 06/27/18 08:25) Unknown tetracycline [Tetracycline] Allergy (Unknown, Verified 06/27/18 08:25) Unknown yellow dye Allergy (Unknown, Verified 06/27/18 08:25) Unknown fentanyl Allergy (Verified 06/27/18 16:12) Unknown hydrochlorothiazide Allergy (Verified 06/27/18 08:25) Unknown CREATINE MONOHYDRATE Allergy (Unknown, Uncoded 06/27/18 08:25) Unknown Medications to take at Discharge Albuterol Inhaler [Ventolin Hfa] 2 puff INHALATION PRN PRN 08/23/14 Clopidogrel Bisulfate [Plavix] 75 mg PO DAILY 08/23/14 Hydrocodone/Acetaminophen [Hydrocodon-Acetaminophn 10-325] 1 tab PO DAILY 08/23/14 Pravastatin [Pravachol] 40 mg PO QHS 08/23/14 Metoprolol Tartrate [Lopressor (beta becky)] 50 mg PO BID 02/17/15 Pantoprazole Sodium [Protonix] 40 mg PO DAILY #30 tab 07/02/18 Rivaroxaban [Xarelto] 15 mg PO BIDCM #42 tab 07/02/18 Rivaroxaban [Xarelto] 20 mg PO DAILY #30 tab 07/02/18 The following prescriptions were given: Pantoprazole Sodium [Protonix] 40 mg PO DAILY #30 tab Rivaroxaban [Xarelto] 20 mg PO DAILY #30 tab Rivaroxaban [Xarelto] 15 mg PO BIDCM #42 tab Please follow up with your Primary Care Physician in: in 1-2 weeks Test Results: Test results from this visit will be discussed in further detail at your follow-up appointment, if applicable. Please Follow Up With: Prosper Benoit NP-C Proposed Discharge Date: 07/02/18
--- NOTE | 2018-07-02 16:41 | DCINST_ITS ---
- Discharge Diagnoses Current Active Problems: Current Active and Chronic Problems (Last Reviewed 06/28/18 @ 12:15 by Pop Stahl MD) Pneumobilia (Acute) Upper GI bleed (Acute) Syncope (Acute) Atrial fibrillation with RVR (Acute) Hyperkalemia (Acute) Acute renal failure (Acute) You will use the following diet at home:: No restrictions Discharge Activity: Return to Normal Activity Allergies/Adverse Reactions: Allergies acetaminophen [From Darvocet-N] Allergy (Unknown, Verified 06/27/18 08:25) Unknown amitriptyline HCl [From Elavil] Allergy (Unknown, Verified 06/27/18 08:25) Unknown atorvastatin calcium [From Lipitor] Allergy (Unknown, Verified 06/27/18 08:25) Unknown azithromycin [From Zithromax] Allergy (Unknown, Verified 06/27/18 08:25) Unknown cefaclor [Cefaclor] Allergy (Unknown, Verified 06/27/18 08:25) Unknown ciprofloxacin [From Cipro] Allergy (Unknown, Verified 06/27/18 08:25) Unknown ciprofloxacin HCl [From Cipro] Allergy (Unknown, Verified 06/27/18 08:25) Unknown hydroxyzine HCl [From Atarax] Allergy (Unknown, Verified 06/27/18 08:25) Unknown influenza virus vaccine, specific [Influenza Virus Vacc,Specific] Allergy ( Unknown, Verified 06/27/18 08:25) Unknown iodine Allergy (Unknown, Verified 06/27/18 08:25) Unknown latex Allergy (Unknown, Verified 06/27/18 08:25) Unknown levofloxacin [From Levaquin] Allergy (Unknown, Verified 06/27/18 08:25) Unknown lidocaine Allergy (Unknown, Verified 06/27/18 08:25) Unknown lovastatin Allergy (Unknown, Verified 06/27/18 08:25) Unknown niacin Allergy (Unknown, Verified 06/27/18 08:25) Unknown Penicillins Allergy (Unknown, Verified 06/27/18 08:25) Unknown pneumococcal vaccine [Pneumococcal Vaccine] Allergy (Unknown, Verified 06/27/18 08:25) Unknown propoxyphene napsylate [From Darvocet-N] Allergy (Unknown, Verified 06/27/18 08: 25) Unknown quinapril HCl [From Accupril] Allergy (Unknown, Verified 06/27/18 08:25) Unknown red dye Allergy (Unknown, Verified 06/27/18 08:25) Unknown rosuvastatin calcium [From Crestor] Allergy (Unknown, Verified 06/27/18 08:25) Unknown simvastatin Allergy (Unknown, Verified 06/27/18 08:25) Unknown Sulfa (Sulfonamide Antibiotics) Allergy (Unknown, Verified 06/27/18 08:25) Unknown Tetanus Vaccines and Toxoid [Tetanus Vaccines & Toxoid] Allergy (Unknown, Verified 06/27/18 08:25) Unknown tetracycline [Tetracycline] Allergy (Unknown, Verified 06/27/18 08:25) Unknown yellow dye Allergy (Unknown, Verified 06/27/18 08:25) Unknown fentanyl Allergy (Verified 06/27/18 16:12) Unknown hydrochlorothiazide Allergy (Verified 06/27/18 08:25) Unknown CREATINE MONOHYDRATE Allergy (Unknown, Uncoded 06/27/18 08:25) Unknown Medications to take at Discharge Albuterol Inhaler [Ventolin Hfa] 2 puff INHALATION PRN PRN 08/23/14 Clopidogrel Bisulfate [Plavix] 75 mg PO DAILY 08/23/14 Hydrocodone/Acetaminophen [Hydrocodon-Acetaminophn 10-325] 1 tab PO DAILY Pravastatin [Pravachol] 40 mg PO QHS 08/23/14 Metoprolol Tartrate [Lopressor (beta becky)] 50 mg PO BID 02/17/15 Pantoprazole Sodium [Protonix] 40 mg PO DAILY #30 tab 07/02/18 Rivaroxaban [Xarelto] 15 mg PO BIDCM #42 tab 07/02/18 Rivaroxaban [Xarelto] 20 mg PO DAILY #30 tab 07/02/18 The following prescriptions were given: Pantoprazole Sodium [Protonix] 40 mg PO DAILY #30 tab Rivaroxaban [Xarelto] 20 mg PO DAILY #30 tab Rivaroxaban [Xarelto] 15 mg PO BIDCM #42 tab Please follow up with your Primary Care Physician in: in 1-2 weeks Test Results: Test results from this visit will be discussed in further detail at your follow- up appointment, if applicable. Please Follow Up With: Prosper Benoit NP-C Proposed Discharge Date: 07/02/18
--- NOTE | 2018-07-02 16:41 | PCM.DC.SUM ---
Discharge Date and Diagnosis - Problem List Patient Problems: Active and Suspected Problems (Last Reviewed 06/28/18 @ 12:15 by Pop Stahl MD) Pneumobilia (Acute) Upper GI bleed (Acute) Syncope (Acute) Atrial fibrillation with RVR (Acute) Hyperkalemia (Acute) Acute renal failure (Acute) Date of Admission: 06/27/18 Date of Discharge: 07/02/18 - Primary Discharge Diagnosis Active and Suspected Problems (Last Reviewed 06/28/18 @ 12:15 by Pop Stahl MD) Pneumobilia (Acute) Upper GI bleed (Acute) Syncope (Acute) Atrial fibrillation with RVR (Acute) Hyperkalemia (Acute) Acute renal failure (Acute) - Secondary Discharge Diagnosis Chronic Problems (Last Reviewed 06/28/18 @ 12:15 by Pop Stahl MD) Hypertension (Chronic) Peripheral vascular occlusive disease (Chronic) Type 2 diabetes mellitus without complications (Chronic) Non-rheumatic tricuspid valve insufficiency (Chronic) Nonrheumatic aortic valve insufficiency (Chronic) History of coronary artery stent placement (Chronic ~01/05/03) Stent X 2 Mid LAD @ [facility] 01/05/2003, Atherosclerosis of coronary artery of [place] heart without angina pectoris (Chronic) Hyperlipidemia (Chronic) Hospital Course and Treatment Nephrology gastroenterology cardiology Operations: None Procedures: - - temporary dialysis catheter placement and dialysis Summary of Care Provided: The patient is a 68 year old M [] Discharge Diet: No Restrictions Discharge Activity: Return to Normal Activity Home Medications: Medications to take at Discharge Albuterol Inhaler [Ventolin Hfa] 2 puff INHALATION PRN PRN 08/23/14 Clopidogrel Bisulfate [Plavix] 75 mg PO DAILY 08/23/14 Hydrocodone/Acetaminophen [Hydrocodon-Acetaminophn 10-325] 1 tab PO DAILY 08/23/14 Pravastatin [Pravachol] 40 mg PO QHS 08/23/14 Metoprolol Tartrate [Lopressor (beta becky)] 50 mg PO BID 02/17/15 Pantoprazole Sodium [Protonix] 40 mg PO DAILY #30 tab 07/02/18 Rivaroxaban [Xarelto] 15 mg PO BIDCM #42 tab 07/02/18 Rivaroxaban [Xarelto] 20 mg PO DAILY #30 tab 07/02/18 Following Prescrptions Were Given to Patient: Pantoprazole Sodium [Protonix] 40 mg PO DAILY #30 tab Rivaroxaban [Xarelto] 20 mg PO DAILY #30 tab Rivaroxaban [Xarelto] 15 mg PO BIDCM #42 tab Primary Care Physician: Ziyad Ruvalcaba MD [Primary Care Provider] - Please follow up with your Primary Care Physician in: in 1-2 weeks Please Follow Up With: Prosper Benoit NP-C Patient Condition:: Fair Medical Necessity - Tobacco Use Smoking Status: Former smoker Meaningful Use Info Meaningful Use Diagnoses (Choose all that apply): None applicable Code Visit Inpatient E&M: 99298 Disch Hosp
--- NOTE | 2018-07-02 16:47 | NURSING ---
Checked cost for Xarelto $125.00, notified patient of cost. Was informed it is none of your [employer] business, I already know. Angry regarding discharge got out of bed grabbed belongings and walker and walked out of room. In hallway started to lean on railing, called for wheelchair. Nurse notified of patient wanting to discharge now.
--- NOTE | 2018-07-02 17:00 | NURSING ---
this RN notified to come to patients room as soon as possible, that patient was angry about discharge and on his way out the door. Pt was found in hallway being assisted to wheelchair by [employer]. Pt declined discharge teaching, stating 'it's no good now, just give me the papers.' informed patient that the d/c order was just placed. pt states 'the doctor saw me at 4 and said i could get dressed and leave and that's what i'm doing.' Pt refused to listen to d/c instrcutions. Wheeled out in w/c by [employer]>
--- NOTE | 2018-07-04 08:30 | CASEMGMT ---
This RN CM received message from Alicia at [facility] yesterday asking this RN CM to call her back regarding this pt. Per Alicia, pt states that he did not want [facility] at that time because he had a horrible experience while admitted and advised his insurance that he wants [facility] fired from his insurance. Alicia then states that she received call back from pt this am, stating that he would now like [facility] to come out but not to call back till saturday. Pt then asked Alicia if someone could come out and take his to the store today. Alicia stated that they will attempt to call pt back on saturday but is unsure what will happen at that time. SStaten ANISA MACIAS
--- NOTE | 2018-07-04 11:41 | CASEMGMT ---
Addendum entered by Viv Carrillo 07/04/18 13:51: This RN CM received call back from pt and he states that he is 'not doing too good.' This RN CM asked pt if he had called Dr. Ruvalcaba since he wasn't feeling well and pt states that he doesn't plan on seeing Dr. Ruvalcaba again. Pt had praised Dr. Ruvalcaba to this RN CM while here during admission. Pt is very short with this RN CM and wants to know why I am calling. Advised pt at this time and he states 'Well if you don't have anything more important to talk to me about then I don't want to talk to you at this time.' Pt then proceeded to hang up. Onelia LANGE CM Original Note: RN CM Discharge F/U Phone Call LACE: 12 Strata: 4 Discharge date: 07/02/18 Call date: 07/04/18 Call time: 1141 Attempted to reach pt at this time without success, message left for pt to call this RN CM back when available. Onelia LANGE CM Admission dx: Acute renal failure, uremia, hyperkalemia
== END 2018-07-02 16:55 | disposition home or self-care (01) | DRG 682 ==
LOC: ED 09:46 → ICU 06-30 06:54 → PCU 06-30 12:56
PROVIDERS: Family Medicine; Internal Medicine Critical Care Medicine; Internal Medicine Nephrology; Physician Assistant; Surgery; Admitting Provider Hospitalist; Emergency Provider Emergency Medicine; Family Provider Family Medicine; PCP Family Medicine; Visit Provider Internal Medicine
PROC: 0DJ08ZZ Inspection of Upper Intestinal Tract, Via Natural or Artificial Opening Endoscopic (ICD-10-PCS; CPT 43235; principal; 2018-07-01 12:25)
DX: N17.9 Acute kidney failure, unspecified (principal); I21.4 Non-ST elevation (NSTEMI) myocardial infarction; R57.1 Hypovolemic shock; E87.2 Acidosis; I82.629 Acute embolism and thrombosis of deep veins of unspecified upper extremity; K92.2 Gastrointestinal hemorrhage, unspecified; R55 Syncope and collapse; I48.0 Paroxysmal atrial fibrillation; I10 Essential (primary) hypertension; E11.9 Type 2 diabetes mellitus without complications; I25.10 Atherosclerotic heart disease of native coronary artery without angina pectoris; E78.5 Hyperlipidemia, unspecified; K83.8 Other specified diseases of biliary tract; E87.5 Hyperkalemia; I35.2 Nonrheumatic aortic (valve) stenosis with insufficiency; I36.1 Nonrheumatic tricuspid (valve) insufficiency; J44.9 Chronic obstructive pulmonary disease, unspecified; K21.9 Gastro-esophageal reflux disease without esophagitis; N40.0 Benign prostatic hyperplasia without lower urinary tract symptoms; Z95.5 Presence of coronary angioplasty implant and graft; Z79.82 Long term (current) use of aspirin; Z79.02 Long term (current) use of antithrombotics/antiplatelets; Z87.891 Personal history of nicotine dependence; I73.9 Peripheral vascular disease, unspecified
CPT/HCPCS: 36415; 36569; 36600; 71045; 71046; 72170; 74176; 76770; 80048; 80053; 81001; 82550; 82570; 82803; 82962; 83036; 83605; 83735; 84100; 84300; 84443; 84484; 85014; 85018; 85025; 85027; 85610; 85730; 87641; 88305; 88342; 90937; 93005; 93306; 93970; 93971; 97116; 97162; 97166; 97530; 99285; J2185; J7030; A4216; C1752; G0257; J0610; J1940; J3475; J7799

== ENCOUNTER 2018-10-21 13:37 | Outpatient (RCR) | payer OTHER, SELFPAY ==
[2018-10-21 14:02] VITALS: BP 149/76; PULSE 49; RESP 18; TEMP 36.6; BMI 29.1
--- NOTE | 2018-10-22 08:47 | HP.PCM_ITS ---
(1) Callus of foot Status: Chronic Current Visit: Yes Code(s): L84 - Corns and callosities (2) Neuropathy Status: Chronic Current Visit: Yes Code(s): G62.9 - Polyneuropathy, unspecified (3) Type 2 diabetes mellitus without complications Status: Chronic Current Visit: Yes Code(s): E11.9 - Type 2 diabetes mellitus without complications History of Present Illness Date of Service: 10/21/18 Chief Complaint: A painful callus on the bottom of left foot. This makes it difficult for him to walk. History of Wound: Patient is a self-referral for a painful callus on the bottom of left foot. This makes it difficult for him to walk. He is using a postop shoe with foam to offload the pressure. He has had this callus that comes and goes for 2 years. He has previously seen Dr. Anand for this issue. He has n ot seen Dr. Anand in about a year and would prefer not to go back to him. He has been using left over Santyl on the area. The callus will grow, become painful and then will eventually fall off. He has a significant history of Afib, syncope, DM, neuropathy, DVT. He is on Plavix and xeralto. Venous doppler from 06/30/18 a DVT of right radial vein. There is no evidence of right lower extremity DVT. 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 Past Medical History Past Medical History: Chronic Problems (Last Reviewed 06/28/18 @ 12:15 by Pop Stahl MD) Callus of foot (Chronic) Neuropathy (Chronic) Hypertension (Chronic) Peripheral vascular occlusive disease (Chronic) Type 2 diabetes mellitus without complications (Chronic) Non-rheumatic tricuspid valve insufficiency (Chronic) Nonrheumatic aortic valve insufficiency (Chronic) History of coronary artery stent placement (Chronic ~01/05/03) Stent X 2 Mid LAD @ [facility] 01/05/2003, Atherosclerosis of coronary artery of [place] heart without angina pectoris (Chronic) Hyperlipidemia (Chronic) Surgical History: coronary artery stents Allergies/Adverse Reactions: Allergies acetaminophen [From Darvocet-N] Allergy (Unknown, Verified 10/21/18 14:26) Unknown amitriptyline HCl [From Elavil] Allergy (Unknown, Verified 10/21/18 14:26) Unknown atorvastatin calcium [From Lipitor] Allergy (Unknown, Verified 10/21/18 14:26) Unknown azithromycin [From Zithromax] Allergy (Unknown, Verified 10/21/18 14:26) Unknown cefaclor [Cefaclor] Allergy (Unknown, Verified 10/21/18 14:26) Unknown ciprofloxacin [From Cipro] Allergy (Unknown, Verified 10/21/18 14:26) Unknown ciprofloxacin HCl [From Cipro] Allergy (Unknown, Verified 10/21/18 14:26) Unknown hydroxyzine HCl [From Atarax] Allergy (Unknown, Verified 10/21/18 14:26) Unknown influenza virus vaccine, specific [Influenza Virus Vacc,Specific] Allergy (Unknown, Verified 10/21/18 14:26) Unknown iodine Allergy (Unknown, Verified 10/21/18 14:26) Unknown latex Allergy (Unknown, Verified 10/21/18 14:26) Unknown levofloxacin [From Levaquin] Allergy (Unknown, Verified 10/21/18 14:26) Unknown lidocaine Allergy (Unknown, Verified 10/21/18 14:26) Unknown lovastatin Allergy (Unknown, Verified 10/21/18 14:26) Unknown niacin Allergy (Unknown, Verified 10/21/18 14:26) Unknown Penicillins Allergy (Unknown, Verified 10/21/18 14:26) Unknown pneumococcal vaccine [Pneumococcal Vaccine] Allergy (Unknown, Verified 10/21/18 14:26) Unknown propoxyphene napsylate [From Darvocet-N] Allergy (Unknown, Verified 10/21/18 14:26) Unknown quinapril HCl [From Accupril] Allergy (Unknown, Verified 10/21/18 14:26) Unknown red dye Allergy (Unknown, Verified 10/21/18 14:26) Unknown rosuvastatin calcium [From Crestor] Allergy (Unknown, Verified 10/21/18 14:26) Unknown simvastatin Allergy (Unknown, Verified 10/21/18 14:26) Unknown Sulfa (Sulfonamide Antibiotics) Allergy (Unknown, Verified 10/21/18 14:26) Unknown Tetanus Vaccines and Toxoid [Tetanus Vaccines & Toxoid] Allergy (Unknown, Verified 10/21/18 14:26) Unknown tetracycline [Tetracycline] Allergy (Unknown, Verified 10/21/18 14:26) Unknown yellow dye Allergy (Unknown, Verified 10/21/18 14:26) Unknown fentanyl Allergy (Verified 10/21/18 14:26) Unknown hydrochlorothiazide Allergy (Verified 10/21/18 14:26) Unknown CREATINE MONOHYDRATE Allergy (Unknown, Uncoded 06/27/18 08:25) Unknown Home Medications: Ambulatory Orders Medication Instructions Recorded Albuterol Inhaler [Ventolin Hfa] 2 puff INHALATION PRN PRN 08/23/14 Clopidogrel Bisulfate [Plavix] 75 mg PO DAILY 08/23/14 Hydrocodone/Acetaminophen 1 tab PO DAILY 08/23/14 [Hydrocodon-Acetaminophn 10-325] Pravastatin [Pravachol] 40 mg PO QHS 08/23/14 Metoprolol Tartrate [Lopressor 50 mg PO BID 02/17/15 (beta becky)] Pantoprazole Sodium [Protonix] 40 mg PO DAILY #30 tab 07/02/18 Rivaroxaban [Xarelto] 15 mg PO BIDCM #42 tab 07/02/18 Rivaroxaban [Xarelto] 20 mg PO DAILY #30 tab 07/02/18 - Family History Paternal Family History: Family History (Last Updated 12/20/17 @ 12:09 by Samanta Cabrera) Father CAD (coronary artery disease) Mother CAD (coronary artery disease) Brother CAD (coronary artery disease) No pertinent history Maternal Family History: Family History (Last Updated 12/20/17 @ 12:09 by Samanta Cabrera) Father CAD (coronary artery disease) Mother CAD (coronary artery disease) Brother CAD (coronary artery disease) Heart Disease Smoking Status: Former smoker Review of Systems Constitutional: Denies: Anorexia, Chills, Fever Eyes: Denies: Pain, Vision Change HEENT: Denies: Difficulty Hearing, Difficulty Swallowing, Sinus Congestion Cardiovascular: Denies: Chest Pain Respiratory: Denies: Cough, Shortness of Breath Gastrointestinal: Denies: Diarrhea, Nausea, Vomiting Musculoskeletal: Reports: Foot Pain - Left foot pain Skin: Reports: - - Left foot plantar surface callus that is painful. Denies: Dryness Neurological: Reports: Numbness - bilateral feet are numb from neuropathy. Denies: Balance problems Endocrine: Denies: Change in Body Habitus Hematologic/ Lymphatic: Reports: Hx of blood clot - Right arm 06/21 - Physical Exam Vital Signs Temp Pulse Resp BP 97.8 F 49 L 18 149/76 H 10/21/18 14:02 12/18/18 14:02 10/21/18 14:02 10/21/18 14:02 General: Alert, Oriented x3, Cooperative HEENT: Atraumatic Oral: Moist Mucosa Lungs: Clear to auscultation, Normal air movement Cardiovascular: Regular rate, Regular Rhythm Extremities: No edema, Capillary Refill Less than 3 Seconds, Peripheral Pulses Normal Skin: Ulcer/ Wound - left foot, plantal surface, lateral aspect Wound Measurements and Assessment WC - Nurse 1 - General Ulcer Measurement Start: 10/21/18 13:59 Freq: Status: Active Protocol: Activity Type Activity Date Activity User E-Sign Co-Sign Detail Recorded Client Recorded Date Recorded By Document 10/21/18 14:02 DL [id number] 10/21/18 14:19 DL 10/21/18 14:02 Wound Center Nurse 1 [Ulcer Assessment] #1 Lat plantar -Current Size (cm) - Length 0.1 -Current Size (cm) - Width 0.1 -Current Size (cm) - Depth 0.1 -Total Square Cm 0.01 -Photo Taken Yes -Classification - Thickness Unclassifiable (Eschar Covered ) -Exudate Amt None Present (0 %) -Wound Margin Thickened -Granulation Amt None Present (0 %) -Granulation Quality Pale -Necrosis Amt Large (67-100%) -Necrotic Tissue Type Eschar -Structure Exposed N/A -Texture (Asia-wound Skin Appearance) No Abnormality -Moisture (Asia-wound Skin Appearance No Abnormality ) -Color (Asia-wound Skin Appearance) No Abnormality -Temperature ([place]-wound Skin No Abnormality Appearance) (Pt Warm) -Tenderness on Palpation (Asia-wound No Skin Appearance) -Ulcer Cleansing Wound Cleanser -Foul Odor after Cleansing No -Anesthetic Used 4% Lidocaine Solution [Edema Assessment] -Right Calf (cm) 39.5 -Right Ankle (cm) 23.4 -Left Calf (cm) 36 -Left Ankle (cm) 22.4 WC - Nurse 2 - General Ulcer CM Notes Start: 10/21/18 13:59 Freq: Status: Active Protocol: Activity Type Activity Date Activity User E-Sign Co-Sign Detail Recorded Client Recorded Date Recorded By Document 10/21/18 15:10 DAVIDE [id number] 10/21/18 15:11 DAVIDE 10/21/18 15:10 Wound Center Nurse 2 [Procedure/Treatment] #1 Lat plantar -Correct Patient No -Correct Side, Site, Position No -Correct Procedure No -Procedure Performed No -Post Debridement Size (cm) - Length 0 -Post Debridement Size (cm) - Width 0 -Post Debridement Size (cm) - Depth 0 -Total Square Cm 0 -Wound/Ulcer Outcome Healed- Epithelialized [See Physician Procedure note for Specifics] Pain Scale: 0-10 Numeric [Pain] -Is Patient Pain Free? Yes Musculoskeletal: No Tenderness to Palpation of Joints or Extremities Neurological: Neuro grossly intact Psych/Mental Status: Normal Affect, Appropriate Debridement Note Post-Debridement Measurements/Treatment WC - Nurse 2 - General Ulcer CM Notes Start: 10/21/18 13:59 Freq: Status: Active Protocol: Activity Type Activity Date Activity User E-Sign Co-Sign Detail Recorded Client Recorded Date Recorded By Document 10/21/18 15:10 DAVIDE [id number] 10/21/18 15:11 DAVIDE 10/21/18 15:10 Wound Center Nurse 2 #1 Lat plantar -Correct Patient No -Correct Side, Site, Position No -Correct Procedure No -Procedure Performed No -Post Debridement Size (cm) - Length 0 -Post Debridement Size (cm) - Width 0 -Post Debridement Size (cm) - Depth 0 -Total Square Cm 0 -Wound/Ulcer Outcome Healed- Epithelialized Pain Scale: 0-10 Numeric Is Patient Pain Free? Yes Wound debrided: Left foot, plantar surface, lateral aspect Laterality: Left Type of Debridement: Excisional debridement Anesthesia Used: - - allergic to lidocaine, saline was placed on callus to soften Depth: Down to and including healthy tissue Percentage of wound debrided: 100 Instrument Used: 5mm curette Tissue Removed: Slough and hardened, dry/ skin Amount of bleeding with debridement: None Able to remove callus with very little difficulty. There is no open wound, no bleeding and no drainage. Once the thickened skin was removed, there continues to be a sensitive area that is dry and intact. Assessment/Plan Active Problems (Last Reviewed 06/28/18 @ 12:15 by Pop Stahl MD) Callus of foot (Chronic) Neuropathy (Chronic) Type 2 diabetes mellitus without complications (Chronic) Assessment: 1. Callus of foot (Chronic). 2. Neuropathy (Chronic). 3. Type 2 diabetes mellitus without complications (Chronic) Plan: Left plantar surface of foot on lateral aspect had a large, firm thickened callus was removed. Patient tolerated procedure well. Hopefully removing some of this thickened skin will decrease his pain with walking. Since there is no open wound, patient will be referred to Dr. Deacon DPM for further evaluation of this painful callused area and diabetic foot chare. He does an excellent job with his foot care. Code Visit Office Visits / Consults: [id number] OV [id number] Est
--- OUTSIDE RECORDS SUMMARY | 2019-01-23 00:58 | XMS RPT_ITS ---
:1950 Author Organization OHIP Support Name Relationship Address Phone SAMANTA LAWRENCE Unavailable [address] + [address] [place] [address] R Unavailable Unavailable Unavailable SAMANTA LAWRENCE Unavailable [address] + [address] [place] [address] R Unavailable Unavailable Unavailable SAMANTA LAWRENCE Unavailable [address] + [address] [place] [address] R Unavailable Unavailable Unavailable SAMANTA LAWRENCE Unavailable [address] + [address] [place] [address] R Unavailable Unavailable Unavailable SAMANTA LAWRENCE Unavailable [address] + [address] [place] [address] R Unavailable Unavailable Unavailable SAMANTA LAWRENCE Unavailable [address] + [address] [place] [address] R Unavailable Unavailable Unavailable SAMANTA LAWRENCE Unavailable [address] + [address] [place] [address] R Unavailable Unavailable Unavailable SAMANTA LAWRENCE Unavailable [address] + [address] [place] [address] R Unavailable Unavailable Unavailable SAMANTA LAWRENCE Unavailable [address] + [address] [place] [address] R Unavailable Unavailable Unavailable SAMANTA LAWRENCE Unavailable [address] + [address] [place] [address] R Unavailable Unavailable Unavailable SAMANTA LAWRENCE Unavailable [address] + [address] [place] [address] R Unavailable Unavailable Unavailable CURRAN CLYDE SAMANTA Unavailable [address] + [address] [place] [address] R Unavailable Unavailable Unavailable CURRAN CLYDE, SAMANTA Unavailable [address] + [address] [place] [address] R Unavailable Unavailable Unavailable CURRAN CLYDE, SAMANTA Unavailable [address] + [address] [place] [address] R Unavailable Unavailable Unavailable CURRAN CLYDE, SAMANTA Unavailable [address] + [address] [place] [address] R Unavailable Unavailable Unavailable CURRAN CLYDE, SAMANTA Unavailable [address] + [address] [place] [address] R Unavailable Unavailable Unavailable CURRAN CLYDE SAMANTA Unavailable [address] + [address] [place] [address] R Unavailable Unavailable Unavailable CURRAN CLYDE, SAMANTA Unavailable [address] + [address] [place] [address] R Unavailable Unavailable Unavailable CURRAN CLYDE SAMANTA Unavailable [address] + [address] [place] [address] R Unavailable Unavailable Unavailable CURRAN CLYDE SAMANTA Unavailable [address] + [address] [place] [address] R Unavailable Unavailable Unavailable CURRAN CLYDE SAMANTA Unavailable [address] + [address] [place] [address] R Unavailable Unavailable Unavailable CURRAN CLYDE SAMANTA Unavailable [address] + [address] [place] [address] R Unavailable Unavailable Unavailable CURRAN CLYDE SAMANTA Unavailable [address] + [address] [place] [address] R Unavailable Unavailable Unavailable CURRAN CLYDE SAMANTA Unavailable [address] + [address] [place] [address] R Unavailable Unavailable Unavailable CURRAN CLYDE SAMANTA Unavailable [address] + [address] [place] [address] R Unavailable Unavailable Unavailable Care Team Providers Name Role Phone Corina Casillas Attending Unavailable [facility] Unavailable Malys, Mare Consulting Unavailable Sonja Corina E Attending Unavailable [facility] Unavailable Malys, Mare Consulting Unavailable Sonja, Corina E Consulting Unavailable Samanta Cabrera Attending Unavailable Pop Palafox Attending Unavailable [facility] Referring Unavailable [facility] Unavailable Ashelfah, Ghasem Admitting Unavailable Tanphaichitr, Natthavat Consulting Unavailable Sabrina Martinez Attending Unavailable Carlton Whitehead Consulting Unavailable Pop Palafox Consulting Unavailable Pop Stahl Consulting Unavailable Ashelfah, Ghasem Admitting Unavailable Ashelfah, Ghasem Attending Unavailable [facility] Unavailable Ashelfah, Ghasem Consulting Unavailable Ashelfah, Ghasem Admitting Unavailable Pop Palafox Attending Unavailable [facility] Unavailable Tanphaichitr, Natthavat Consulting Unavailable Carlton Whitehead Consulting Unavailable Pop Palafox Consulting Unavailable Ashelfah, Ghasem Consulting Unavailable Ashelfah, Ghasem Admitting Unavailable Marie Ruiz Attending Unavailable [facility] Unavailable Tanphaichitr, Natthavat Consulting Unavailable Carlton Whitehead Consulting Unavailable Pop Palafox Consulting Unavailable Ashelfah, Ghasem Consulting Unavailable Ashelfah, Ghasem Admitting Unavailable Pop Palafox Attending Unavailable [facility] Unavailable Tanphaichitr, Natthavat Consulting Unavailable Carlton Whitehead Consulting Unavailable Pop Palafox Consulting Unavailable Pop Stahl Consulting Unavailable Ashelfah, Ghasem Consulting Unavailable Corina Casillas Attending Unavailable [facility] Unavailable Malys, Mare Consulting Unavailable Ashelfah, Ghasem Admitting Unavailable Ashelfah, Ghasem Attending Unavailable [facility] Unavailable Tanphaichitr, Natthavat Consulting Unavailable Carlton Whitehead Consulting Unavailable Pop Palafox Consulting Unavailable Pop Stahl Consulting Unavailable Ashelfah, Ghasem Consulting Unavailable Ashelfah, Ghasem Admitting Unavailable Pop Stahl Attending Unavailable [facility] Unavailable Tanphaichitr, Natthavat Consulting Unavailable Ventura, Carlton Consulting Unavailable Pop Palafox Consulting Unavailable Favio, Pop Consulting Unavailable Ashelfah, Ghasem Consulting Unavailable Ashelfah, Ghasem Admitting Unavailable Pop Palafox Attending Unavailable [facility] Unavailable Tanphaichitr, Natthavat Consulting Unavailable Carlton Whitehead Consulting Unavailable Pop Palafox Consulting Unavailable Favio, Pop Consulting Unavailable Ashelfah, Ghasem Consulting Unavailable Ashelfah, Ghasem Admitting Unavailable Ashelfah, Ghasem Attending Unavailable [facility] Unavailable Tanphaichitr, Natthavat Consulting Unavailable Carlton Whitehead Consulting Unavailable Pop Palafox Consulting Unavailable Favio, Pop Consulting Unavailable Ashelfah, Ghasem Consulting Unavailable Ashelfah, Ghasem Admitting Unavailable Pop Stahl Attending Unavailable [facility] Unavailable Tanphaichitr, Natthavat Consulting Unavailable Carlton Whitehead Consulting Unavailable Pop Palafox Consulting Unavailable [place], Pop Consulting Unavailable Ashelfah, Ghasem Consulting Unavailable Ashelfah, Ghasem Admitting Unavailable Naun Canada Attending Unavailable [facility] Unavailable Tanphaichitr, Natthavat Consulting Unavailable Carlton Whitehead Consulting Unavailable Pop Palafox Consulting Unavailable Pop Stahl Consulting Unavailable Naun Canada Consulting Unavailable Ashelfah, Ghasem Admitting Unavailable Pop Stahl Attending Unavailable [facility] Unavailable Tanphaichitr, Natthavat Consulting Unavailable Carlton Whitehead Consulting Unavailable Pop Palafox Consulting Unavailable Pop Stahl Consulting Unavailable Naun Canada Consulting Unavailable Ashelfah, Ghasem Admitting Unavailable Pop Palafox Attending Unavailable [facility] Unavailable Tanphaichitr, Natthavat Consulting Unavailable Carlton Whitehead Consulting Unavailable Pop Palafox Consulting Unavailable Pop Stahl Consulting Unavailable Naun [place] Consulting Unavailable Naun Canada Attending Unavailable Ashelfah, Ghasem Admitting Unavailable [facility] Unavailable Tanphaichitr, Natthavat Consulting Unavailable Carlton Whitehead Consulting Unavailable Pop Palafox Consulting Unavailable Favio, Pop Consulting Unavailable Naun Canada Consulting Unavailable Ashelfah, Ghasem Admitting Unavailable Pop Palafox Attending Unavailable [place], Payam [facility] Unavailable Tanphaichitr, Natthavat Consulting Unavailable Carlton Whitehead Consulting Unavailable Pop Palafox Consulting Unavailable Favio, Pop Consulting Unavailable Oleghe, Ifijen Consulting Unavailable Ashelfah, Ghasem Admitting Unavailable [place], Payam Primary [facility] Unavailable Tanphaichitr, Natthavat Consulting Unavailable Jodee Rapp Attending Unavailable Carlton Whitehead Consulting Unavailable Pop Palafox Consulting Unavailable Favio, Pop Consulting Unavailable Oleghe, Ifijen Consulting Unavailable Carlton Whitehead Attending Unavailable Ashelfah, Ghasem Referring Unavailable Joenl Hassan Attending Unavailable Zohaib Segovia Attending Unavailable Tye Huggins Referring Unavailable Zohaib Segovia Attending Unavailable [place] Carlton Referring Unavailable PROSPER FARIA ([facility]) Attending Unavailable TERRY GTZ Referring Unavailable ANANDCARLOS GRIER Referring Unavailable GWYN ANANDHLEEN D Referring Unavailable TERRY GTZ Attending Unavailable PROSPER FARIA ([facility]) Referring Unavailable TERRY GTZ Referring Unavailable PAYAM RUVALCABA Referring Unavailable PRATIMA GORMAN Attending Unavailable NILES FELICIANO JR Referring Unavailable PRATIMA GORMAN Attending Unavailable PRATIMA GORMAN Attending Unavailable [facility] Referring Unavailable Payam Ruvalcaba Primary Care Unavailable PRATIMA GORMAN Attending Unavailable NILES FELICIANO Referring Unavailable Payam Ruvalcaba Primary Care Unavailable PRATIMA GORMAN Attending Unavailable [facility] Referring Unavailable Payam Ruvalacba Primary Care Unavailable PRATIMA GORMAN Attending Unavailable [facility] Referring Unavailable Payam Ruvalcaba Primary Care Unavailable PROBLEMS PROBLEMS DATE TYPE CONDITION / CODE ATTENDING STATUS SOURCE 10/21/2018 Active Peripheral vascular NA Active [place] disease, unspecified [facility] / I73.9(ICD-10) [facility] 10/10/2018 Active Paroxysmal atrial NA Active [place] fibrillation / [facility] I48.0(ICD-10) [facility] 10/20/2018 Active Atherosclerotic NA Active [place] heart disease of Clinic Main tribe coronary [place] artery without Repository angina pectoris / I25.10(ICD-10) 10/20/2018 Active Dizziness and NA Active [place] giddiness / [facility] Main R42(ICD-10) [facility] 10/03/2018 Active Type 2 diabetes NA Active [place] mellitus with [facility] unspecified [place] complications / Repository E11.8(ICD-10) 07/09/2018 Unknown N17.9 - Acute kidney VenturaCarlton kessler Active [place] failure, unspecified Community / N17.9(ICD-10) Hospital Repository 07/09/2018 Unknown E87.5 - Hyperkalemia VenturaCarlton kessler Active [place] / E87.5(ICD-10) [facility] Repository 07/09/2018 Unknown E87.2 - Acidosis / VenturaCarlton kessler Active [place] E87.2(ICD-10) [facility] Repository 07/09/2018 Unknown R55 - Syncope and [place], Carlton Active [place] collapse / Community R55(ICD-10) Hospital Repository 07/09/2018 Unknown J96.01 - Acute [place], Carlton Active [facility] respiratory failure Community with hypoxia / Hospital J96.01(ICD-10) Repository 07/09/2018 Unknown I10 - Essential VenturaCarlton kessler Active [facility] (primary) Community hypertension / Hospital I10(ICD-10) Repository 07/09/2018 Unknown E11.9 - Type 2 [place], Carlton Active [place] diabetes mellitus Community without Hospital complications / Repository E11.9(ICD-10) 07/09/2018 Unknown R57.9 - Shock, VenturaCarlton kessler Active [place] unspecified / Community R57.9(ICD-10) Hospital Repository 07/28/2018 Unknown M79.89 - Other Zohaib Segovia Active [facility] specified soft Community tissue disorders / Hospital M79.89(ICD-10) Repository 03/12/2018 Active Other intervertebral GURAN, Active [place] disc displacement, [facility] Other lumbar region / [place] M51.26(ICD-10) Repository 03/12/2018 Active Sprain of other GURAN, Active [place] parts of lumbar [facility] Other spine and pelvis, [place] initial encounter / Repository S33.8XXA(ICD-10) 03/12/2018 Admitting Unknown / GURAN, Active [place] [facility] diagnosis UNK(Unknown) [facility] Repository PROCEDURES PROCEDURES No Procedure Records FoundRESULTS RESULTS WOUND CTR HISTORY Observed: 10/24/2018 Status: F Source: [place] [facility] PHYSICAL 11:25 AM [facility] REPOSITORY [facility] [address] [place], [place] [address] [address] Wound Ctr History AND Physical 10/22/18 0845 MR#: [id number] Acct: [id number] Name: GIANA TANG Rep #: [id number] : 1950 68 From: Corina IRWIN PCP: Peg GUERRERO,Payam Status: REG RCR Y Location: (1) Callus of foot Status: Chronic Current Visit: Yes Code(s): L84 - Corns and callosities (2) Neuropathy Status: Chronic Current Visit: Yes Code(s): G62.9 - Polyneuropathy, unspecified (3) Type 2 diabetes mellitus without complications Status: Chronic Current Visit: Yes Code(s): E11.9 - Type 2 diabetes mellitus without complications History of Present Illness Date of Service: 10/21/18 Chief Complaint: A painful callus on the bottom of left foot. This makes it difficult for him to walk. History of Wound: Patient is a self-referral for a painful callus on the bottom of left foot. This makes it difficult for him to walk. He is using a postop shoe with foam to offload the pressure. He has had this callus that comes and goes for 2 years. He has previously seen Dr. Anand for this issue. He has not seen Dr. Anand in about a year and would prefer not to go back to him. He has been using left over Santyl on the area. The callus will grow, become painful and then will eventually fall off. He has a significant history of Afib, syncope, DM, neuropathy, DVT. He is on Plavix and xeralto. Venous doppler from 06/30/18 a DVT of right radial vein. There is no evidence of right lower extremity DVT. 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 Past Medical History Past Medical History: Chronic Problems (Last Reviewed 06/28/18 @ 12:15 by Pop Stahl MD) Callus of foot (Chronic) Neuropathy (Chronic) Hypertension (Chronic) Peripheral vascular occlusive disease (Chronic) Type 2 diabetes mellitus without complications (Chronic) Non-rheumatic tricuspid valve insufficiency (Chronic) Nonrheumatic aortic valve insufficiency (Chronic) History of coronary artery stent placement (Chronic 01/05/03) Stent X 2 Mid LAD @ [facility] 01/05/2003, Atherosclerosis of coronary artery of tribe heart without angina pectoris (Chronic) Hyperlipidemia (Chronic) Surgical History: coronary artery stents Allergies/Adverse Reactions: Allergies acetaminophen [From Darvocet-N] Allergy (Unknown, Verified 10/21/18 14:26) Unknown amitriptyline HCl [From Elavil] Allergy (Unknown, Verified 10/21/18 14:26) Unknown atorvastatin calcium [From Lipitor] Allergy (Unknown, Verified 10/21/18 14:26) Unknown azithromycin [From Zithromax] Allergy (Unknown, Verified 10/21/18 14:26) Unknown cefaclor [Cefaclor] Allergy (Unknown, Verified 10/21/18 14:26) Unknown ciprofloxacin [From Cipro] Allergy (Unknown, Verified 10/21/18 14:26) Unknown ciprofloxacin HCl [From Cipro] Allergy (Unknown, Verified 10/21/18 14:26) Unknown hydroxyzine HCl [From Atarax] Allergy (Unknown, Verified 10/21/18 14:26) Unknown influenza virus vaccine, specific [Influenza Virus Vacc,Specific] Allergy (Unknown, Verified 10/21/18 14:26) Unknown iodine Allergy (Unknown, Verified 10/21/18 14:26) Unknown latex Allergy (Unknown, Verified 10/21/18 14:26) Unknown levofloxacin [From Levaquin] Allergy (Unknown, Verified 10/21/18 14:26) Unknown lidocaine Allergy (Unknown, Verified 10/21/18 14:26) Unknown lovastatin Allergy (Unknown, Verified 10/21/18 14:26) Unknown niacin Allergy (Unknown, Verified 10/21/18 14:26) Unknown Penicillins Allergy (Unknown, Verified 10/21/18 14:26) Unknown pneumococcal vaccine [Pneumococcal Vaccine] Allergy (Unknown, Verified 10/21/18 14:26) Unknown propoxyphene napsylate [From Darvocet-N] Allergy (Unknown, Verified 10/21/18 14:26) Unknown quinapril HCl [From Accupril] Allergy (Unknown, Verified 10/21/18 14:26) Unknown red dye Allergy (Unknown, Verified 10/21/18 14:26) Unknown rosuvastatin calcium [From Crestor] Allergy (Unknown, Verified 10/21/18 14:26) Unknown simvastatin Allergy (Unknown, Verified 10/21/18 14:26) Unknown Sulfa (Sulfonamide Antibiotics) Allergy (Unknown, Verified 10/21/18 14:26) Unknown Tetanus Vaccines and Toxoid [Tetanus Vaccines AND Toxoid] Allergy (Unknown, Verified 10/21/18 14:26) Unknown tetracycline [Tetracycline] Allergy (Unknown, Verified 10/21/18 14:26) Unknown yellow dye Allergy (Unknown, Verified 10/21/18 14:26) Unknown fentanyl Allergy (Verified 10/21/18 14:26) Unknown hydrochlorothiazide Allergy (Verified 10/21/18 14:26) Unknown CREATINE MONOHYDRATE Allergy (Unknown, Uncoded 06/27/18 08:25) Unknown Home Medications: Ambulatory Orders Medication Instructions Recorded Albuterol Inhaler [Ventolin Hfa] 2 puff INHALATION PRN PRN 08/23/14 Clopidogrel Bisulfate [Plavix] 75 mg PO DAILY 08/23/14 - Family History Paternal Family History: Family History (Last Updated 12/20/17 @ 12:09 by Samanta Cabrera) Father CAD (coronary artery disease) Mother CAD (coronary artery disease) Brother CAD (coronary artery disease) No pertinent history Maternal Family History: Family History (Last Updated 12/20/17 @ 12:09 by Samanta Cabrera) Father CAD (coronary artery disease) Mother CAD (coronary artery disease) Brother CAD (coronary artery disease) Heart Disease Smoking Status: Former smoker Review of Systems Constitutional: Denies: Anorexia, Chills, Fever Eyes: Denies: Pain, Vision Change HEENT: Denies: Difficulty Hearing, Difficulty Swallowing, Sinus Congestion Cardiovascular: Denies: Chest Pain Respiratory: Denies: Cough, Shortness of Breath Gastrointestinal: Denies: Diarrhea, Nausea, Vomiting Musculoskeletal: Reports: Foot Pain - Left foot pain Skin: Reports: - - Left foot plantar surface callus that is painful. Denies: Dryness Neurological: Reports: Numbness - bilateral feet are numb from neuropathy. Denies: Balance problems Endocrine: Denies: Change in Body Habitus Hematologic/ Lymphatic: Reports: Hx of blood clot - Right arm 06/21 - Physical Exam Vital Signs Temp Pulse Resp BP 97.8 F 49 L 18 149/76 H 10/21/18 14:02 10/21/18 14:02 10/21/18 14:02 10/21/18 14:02 General: Alert, Oriented x3, Cooperative HEENT: Atraumatic Oral: Moist Mucosa Lungs: Clear to auscultation, Normal air movement Cardiovascular: Regular rate, Regular Rhythm Extremities: No edema, Capillary Refill Less than 3 Seconds, Peripheral Pulses Normal Skin: Ulcer/ Wound - left foot, plantal surface, lateral aspect Wound Measurements and Assessment WC - Nurse 1 - General Ulcer Measurement Start: 10/21/18 13:59 Freq: Status: Active Protocol: Activity Type Activity Date Activity User E-Sign Co-Sign Detail Recorded Client Recorded Date Recorded By Document 10/21/18 14:02 DL [id number] 10/21/18 14:19 DL Wound Center Nurse 1 [Ulcer Assessment] #1 Lat plantar WC - Nurse 2 - General Ulcer CM Notes Start: 10/21/18 13:59 Freq: Status: Active Protocol: Activity Type Activity Date Activity User E-Sign Co-Sign Detail Recorded Client Recorded Date Recorded By Document 10/21/18 15:10 DAVIDE [id number] 10/21/18 15:11 DAVIDE Wound Center Nurse 2 [Procedure/Treatment] #1 Lat plantar -Correct Patient No -Correct Side, Site, Position No Musculoskeletal: No Tenderness to Palpation of Joints or Extremities Neurological: Neuro grossly intact Psych/Mental Status: Normal Affect, Appropriate Debridement Note Post-Debridement Measurements/Treatment WC - Nurse 2 - General Ulcer CM Notes Start: 10/21/18 13:59 Freq: Status: Active Protocol: Activity Type Activity Date Activity User E-Sign Co-Sign Detail Recorded Client Recorded Date Recorded By Document 10/21/18 15:10 DAVIDE [id number] 10/21/18 15:11 Wound Center Nurse 2 Wound debrided: Left foot, plantar surface, lateral aspect Laterality: Left Type of Debridement: Excisional debridement Anesthesia Used: - - allergic to lidocaine, saline was placed on callus to soften Depth: Down to and including healthy tissue Percentage of wound debrided: 100 Instrument Used: 5mm curette Tissue Removed: Slough and hardened, dry/ skin Amount of bleeding with debridement: None Able to remove callus with very little difficulty. There is no open wound, no bleeding and no drainage. Once the thickened skin was removed, there continues to be a sensitive area that is dry and intact. Assessment/Plan Active Problems (Last Reviewed 06/28/18 @ 12:15 by Pop Stahl MD) Callus of foot (Chronic) Neuropathy (Chronic) Type 2 diabetes mellitus without complications (Chronic) Assessment: 1. Callus of foot (Chronic). 2. Neuropathy (Chronic). 3. Type 2 diabetes mellitus without complications (Chronic) Plan: Left plantar surface of foot on lateral aspect had a large, firm thickened callus was removed. Patient tolerated procedure well. Hopefully removing some of this thickened skin will decrease his pain with walking. Since there is no open wound, patient will be referred to Dr. Deacon DPM for further evaluation of this painful callused area and diabetic foot chare. He does an excellent job with his foot care. Code Visit Office Visits / Consults: [id number] OV L4 Est 10/24/18 1125 <Electronically signed by Corina IRWIN> Date Corina IRWIN CC: Signed CNPTOUTREACH Observed: 10/21/2018 Status: COMPLETED Source: [place] 12:00 AM [facility] REPOSITORY Patient Outreach ([facility]) GIANA TANG ([id number]) 1950 M NFR Date Time Provider Department 10/21/18 PAYAM RUVALCABA COUNTS INCLUDE 234 BEDS AT THE [facility] During your visit today, we recorded the following information about you: Allergies As of Date: 10/21/2018 Noted Allergy Reaction GABAPENTIN 03/17/2018 14 - Other: See Comments Comments: Rash, hives, itching, trouble breathing, shakiness, trouble with eyesight ARTHRITIS (HOMEOPATHIC PRODUCTS) 04/30/2006 ATARAX (HYDROXYZINE HCL) 06/27/2011 16 - Unknown CEFACLOR 04/30/2006 CHOLESTEROL 04/30/2006 Comments: any cholestrol lowering medication CIPRO (CIPROFLOXACIN) 04/30/2006 CREATINE MONOHYDRATE 07/17/2007 Comments: muscle spasms CRESTOR (ROSUVASTATIN CALCIUM) 06/27/2011 16 - Unknown DARVOCET A500 (PROPOXYPHENE N-DIANE*04/30/2006 Comments: Hives, airway closes DYE- red and yellow [Other] 06/27/2011 16 - Unknown ELAVIL (AMITRIPTYLINE HCL) 08/01/2007 Comments: Increased depression INFLUENZA VACCINE TRI-SP 09-10 08/28/2012 4 - Hives 14 - Other: See Comments Comments: Throat swelling IODINE (CONTRAST DYE) 04/30/2006 LATEX 04/30/2006 4 - Hives LEVAQUIN (LEVOFLOXACIN) 06/17/2014 16 - Unknown LIDOCAINE 04/30/2006 Comments: Close airway LIPITOR (ATORVASTATIN CALCIUM) 06/27/2011 16 - Unknown LOSARTAN 03/11/2017 4 - Hives LOVASTATIN 06/27/2011 16 - Unknown muscle relaxants [Other] 04/30/2006 NIACIN 06/27/2011 5 - Intolerance PENICILLINS 04/30/2006 4 - Hives Comments: Close airway PNEUMOVAX 23 (PNEUMOCOCCAL 23-RESHMA*06/27/2011 4 - Hives Comments: Also caused severe GI upset SIMVASTATIN 09/21/2013 4 - Hives 14 - Other: See Comments Comments: Gastrointestinal/colitis symptoms SULFA (SULFONAMIDE ANTIBIOTICS) 04/30/2006 TETANUS VACCINES AND TOXOID 04/08/2007 10 - Anaphylaxis TETRACYCLINE 04/30/2006 ZITHROMAX (AZITHROMYCIN) 04/30/2006 Date Reviewed: 10/10/2018 Reviewed by: Dorie Perrin MA - Fully Assessed Visit Diagnosis:Medication management [Z79.899] Order(s):ALBUMIN/CREAT RATIO RND UR [SQUACR] Order #: [id number] FUTURE Prescriptions as of 10/21/2018 Sig: * ALBUTEROL SULFATE HFA 90 MCG/* Inhale 2 Puffs as instructed * BLOOD SUGAR DIAGNOSTIC STRIPS Use as instructed to check bl* CLOPIDOGREL 75 MG TABLET Take 1 tablet by mouth once d* COLLAGENASE CLOSTRIDIUM HISTO* Apply 1 application to affect* COMPOUNDED PRESCRIPTION Kiarra. Apply as directed. Di* LANCETS Patient test sugar level 3x d* LISINOPRIL 10 MG TABLET Take 1 tablet by mouth twice * METOPROLOL TARTRATE 50 MG TAB* Take 1 tablet by mouth twice * PRAVASTATIN 80 MG TABLET Take 1 tablet by mouth once d* RIVAROXABAN 20 MG TABLET Take 1 tablet by mouth once d* X COMPRESSION STOCKING,KNEE HIG* 1 Units once daily. X COMPRESSION STOCKING,KNEE HIG* 1 Units once daily. Problem List As Of Date 10/21/2018 Noted Resolved CHRONIC FATIGUE SYNDROME [R53.82] INVALID FOR* MYALGIA AND MYOSITIS NOS [[id number]] INVALID FOR* Coronary atherosclerosis [I25.10] INVALID FOR* MIXED HYPERLIPIDEMIA [E78.2] INVALID FOR* BPH W/O URINARY OBS/LUTS [N40.0] INVALID FOR* UNILAT INGUINAL HERNIA [K40.90] INVALID FOR* 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] INVALID FOR* Shortness of breath [R06.02] Esophagitis, unspecified [K20.9] INVALID FOR* Environmental allergies [Z91.09] INVALID FOR* Hypogonadism male [E29.1] INVALID FOR* Occlusion and stenosis of carotid artery withou*INVALID FOR* Essential hypertension [I10] INVALID FOR* Hua's esophagus [K22.70] 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*INVALID FOR* Sprain, low back [S33.5XXA] INVALID FOR* PAF (paroxysmal atrial fibrillation) (HCC) [I48*INVALID FOR* Encounter Status:Closed by [employer], PRODUSER on 11/05/18 BASIC METABOLIC PANL Collected: 10/20/2018 Status: F Source: [place] 12:39 PM [facility] REPOSITORY TYPE CODE TESTS RESULT OUT OF REFERENCE UNITS RANGE LAB GLU 74-99 mg/dL Glucose 99 LAB BUN 9-24 mg/dL BUN 19 LAB CRET 0.73-1.22 mg/dL Creatinine 1.05 LAB NA 136-144 mmol/L Sodium 139 LAB K 3.7-5.1 mmol/L Potassium 4.1 LAB CL 97-105 mmol/L Chloride 105 LAB CO2 22-30 mmol/L CO2 23 LAB AGAP 9-18 mmol/L Anion Gap 11 LAB CA 8.5-10.2 mg/dL Calcium, Total 9.3 LAB GFRAA eGFR- >60 Amer. LAB GFRNAA . eGFR-All Other Races >60 Result Comment: eGFR (Estimated GFR) Units of measure: mL/min/1.73 meters squared eGFR is derived from the reexpressed MDRD Study equation using the following parameters: serum creatinine, age, gender and race. The creatinine assay has been calibrated to be traceable to IDMS. An eGFR <60 mL/min/1.73m2 for >3 months is consistent with chronic kidney disease. Refer to KDOQI guidelines for clinical interpretation. In patients with unstable renal function, e.g. those with acute kidney injury, the eGFR may not accurately reflect actual GFR. CBC Collected: 10/20/2018 Status: F Source: [place] 12:39 PM [facility] REPOSITORY TYPE CODE TESTS RESULT OUT OF REFERENCE UNITS RANGE LAB WBC 3.70-11.00 k/uL WBC 6.89 LAB RBC 4.20-6.00 m/uL Low RBC 3.34 LAB HGB 13.0-17.0 g/dL Low Hemoglobin 10.3 LAB HCT 39.0-51.0 % Low Hematocrit 32.7 LAB MCV 80.0-100.0 fL MCV 97.9 LAB MCH 26.0-34.0 pG MCH 30.8 LAB MCHC 30.5-36.0 g/dL MCHC 31.5 LAB RDWCV 11.5-15.0 % RDW-CV 12.7 LAB PLTCT 150-400 k/uL Low Platelet Count 147 LAB MPV 9.0-12.7 fL MPV 11.8 LAB ABSNUC <0.01 k/uL Absolute nRBC <0.01 Performed By: #### CBC #### [facility] [address] [place], [place] [address] PROGRESS Observed: 10/10/2018 Status: COMPLETED Source: [place] 11:03 AM [facility] REPOSITORY HNO ID: [id number] Author: Terry Gtz Service: (none) Author Type: Physician Type: Progress Notes Filed: 10/10/2018 5:52 PM Note Text: PERTINENT CARDIAC HISTORY ASHD - Chronic RCA occlusion, PCI LAD 2002, chronic DAPT Carotid disease 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 Easy bruising, which appears to be related to aspirin and Plavix use. Numerous additional psychophysiologic symptoms. 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 Chronic fatigue syndrome and fibromyalgia Exposure to [employer] [place] ADHERENCE TO GUIDELINES DIANE-I or ARB for HF with prior LVEF<40 (NQF 0081) - N/A ASA or Plavix for ASHD (NQF 0067) - met Beta becky for ASHD with prior SD or prior LVEF<40 (NQF 0070) - N/A Beta becky for HF with prior LVEF<40 (NQF 0083) - N/A DIANE-I or ARB for ASHD with DM or prior LVEF<40 (NQF 0066) - N/A Statin therapy for ASHD or FHL or DM - met BMI documented and plan if >25 (NQF 0421) - lifestyle recommendation form Tobacco use screening and referral (NQ 0028) - lifestyle recommendation form Recommendation for whole food, plant based diet - lifestyle recommendation form CLINICAL IMPRESSION/PLAN: Giana Tang has multiple cardiac issues. We discussed the fact that he had slight troponin release during his atrial fibrillation. He was under severe metabolic stress. He has been free of symptoms of ischemia over the last several years. I recommend that he consider pharmacologic nuclear stress test, but he has declined. He voices understanding of the risk of undiagnosed progressive coronary disease. He has significant peripheral vascular disease with an ulceration on the left foot. He is advised to continue appointment set wound care clinic. He will be referred to vascular surgery for consideration of possible repeat intervention. Carotid Doppler examination has been requested. Metoprolol dose will be continued for the time being, but we may consider decreasing in the future. I've asked him to keep track of his heart rate. Atrial fibrillation was probably related to his metabolic stress and not to ischemia or an underlying fibrillatory substrate. He's been advised to continue monitoring for recurrence. Xarelto is currently being tolerated, but he is at significant risk of bleeding. He was advised to call me if he has any abnormal bleeding or if he begins having more frequent falls. Plavix will be continued for the time being. We will check CBC and basic profile in one week. I will see him in 2 months or as needed. I've advised him to call if he has recurrent symptoms. Total duration of this visit was greater than 80 minutes, including counseling, history taking, exam and review of voluminous old records. Thank you for asking me to see and make recommendations on Giana Tang. This report is available to you in the shared medical record. Written and verbal health teaching given to patient, patient verbalizes understanding and agrees with treatment plan. DIAGNOSIS FOR VISIT: ASHD Hypertension HISTORY OF PRESENT ILLNESS Giana Tang is a 68-year-old gentleman with history of coronary disease and hypertension and multiple other cardiac issues, as noted above. He is seen in consultation at the request of Prosper Faria CNP and Dr. Ruvalcaba. He was followed by Dr. Beckford several years ago. Most recently, he has been followed by Dr. Palafox, but they recently fell out over a disagreement about medical therapy. He had a recent admission for treatment of profound dehydration with associated GI bleed, severe anemia and transient atrial fibrillation. He required transient dialysis but his renal function recovered rapidly. He does not recall being ill prior to the event and it is unclear how he got so dehydrated. His DIANE inhibitor was recently restarted. He was on aspirin, Plavix, statin, metoprolol and lisinopril prior to the recent event. He was started on anticoagulation and is tolerating this well. His GI tract was reportedly evaluated in the hospital. He's had no change in color or stool since discharge. His blood pressure has been under good control. He denies chest discomfort. His coronary disease is quite stable. No assessment of coronary perfusion was done in the hospital. It was recommended that he consider stress testing after discharge. He's had no orthopnea. He's had minimal edema. Overall his exercise tolerance has been stable over the last year or so. He denies TIAs, amaurosis, palpitations, syncope. He has chronic claudication. He has an ulcer on the bottom of his left foot which is being evaluated by wound care. He has known carotid artery disease. He also has severe peripheral vascular disease and has undergone intervention on the left leg in the past. He would like to establish with [facility] vascular surgery. Risk factors for coronary disease include hyperlipidemia, diabetes, hypertension, chronic renal insufficiency ALLERGIES: ALLERGIES Allergen Reactions - Gabapentin Other: See Comments Rash, hives, itching, trouble breathing, shakiness, trouble with eyesight - Arthritis [Homeopat* - Atarax [Hydroxyzine* Unknown - Cefaclor - Cholesterol any cholestrol lowering medication - Cipro [Ciprofloxaci* - Creatine Monohydrate muscle spasms - Crestor [Rosuvastat* Unknown - Darvocet A500 [Prop* Hives, airway closes - Dye- Red And Yellow* Unknown - Elavil [Amitriptyli* Increased depression - Influenza Vaccine T* Hives, Other: See Comments Throat swelling - Iodine [Contrast Dy* - Latex Hives - Levaquin [Levofloxa* Unknown - Lidocaine Close airway - Lipitor [Atorvastat* Unknown - Losartan Hives - Lovastatin Unknown - Muscle Relaxants [O* - Niacin Intolerance - Penicillins Hives Close airway - Pneumovax 23 [Pneum* Hives Also caused severe GI upset - Simvastatin Hives, Other: See Comments Gastrointestinal/colitis symptoms - Sulfa (Sulfonamide * - Tetanus Vaccines An* Anaphylaxis - Tetracycline - Zithromax [Azithrom* CURRENT OUTPATIENT MEDICATIONS: metoprolol tartrate, short acting, (LOPRESSOR) 50 mg tablet Take 1 tablet by mouth twice daily. lisinopril (ZESTRIL, PRINIVIL) 10 mg tablet Take 1 tablet by mouth twice daily. rivaroxaban (XARELTO) 20 mg tablet Take 1 tablet by mouth once daily. clopidogrel (PLAVIX) 75 mg tablet Take 1 tablet by mouth once daily. pravastatin (PRAVACHOL) 40 mg tablet Take 1 tablet by mouth once daily. COMPOUNDED PRESCRIPTION Kiarra. Apply as directed. Diabetic Foot Ulcer, Left foot. 1.6 cm x 1.3 cm x 0.1 cm. collagenase (SANTYL) ointment Apply 1 application to affected area once daily. APPLY TO AFFECTED AREA Lancets (ONE TOUCH ULTRASOFT LANCETS) lancets Patient test sugar level 3x daily. blood sugar diagnostic (ONE TOUCH ULTRA TEST) test strip Use as instructed to check blood sugars albuterol HFA (PROAIR HFA) 90 mcg/Actuation INHALATION inhaler Inhale 2 Puffs as instructed every 6 hours as needed. PAST MEDICAL HISTORY Diagnosis Date - Abdominal pain, left lower quadrant - Arthritis - Hua's esophagus - CAD (coronary artery disease) - Candidiasis - Chronic fatigue disorder - Colitis - COPD (chronic obstructive pulmonary disease) ([facility]) - Diabetes mellitus ([facility]) - Diarrhea - Elevated cholesterol - Emphysema Dr. 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[facility]) - Other and unspecified hyperlipidemia - Other and unspecified hyperlipidemia - Peripheral vascular disease, unspecified ([facility]) - Prostatitis - Shortness of breath - Shortness of breath - Sleep deprivation - Sleep disorder - Snoring - Ulcerative colitis (HCC) PAST SURGICAL HISTORY Procedure Laterality Date - CARD CATH DIAGNOSTIC 01/2003 left - COLONOSCOP W/ OR W/O [facility] SPEC 12/27/2016 Colonoscopy - COLONOSCOP W/ OR W/O [facility] SPEC 03/11/2017 Colonoscopy - COLONOSCOPY W/BX 01/11/11 - EGD W/O BRSH SPECIMEN W/BX 01/11/11 - EGD W/O OR W/BRUSH/WASH 03/12/13 EGD - PERC TRANSL COR ANGIO 2002 Percutaneous Transluminal Coronary Angio Status FAMILY HISTORY Problem Relation Age of Onset - Emphysema Mother - Osteoporosis Mother - Heart Mother - Heart Father - Diabetes Brother - Heart Brother - Obesity Brother Social History Marital status: Unknown Spouse name: Samanta Years of education: Number of children: 1 Occupational History Occupation Employer Comment retired Social History Main Topics Smoking status: Former Smoker Packs/day: 2.00 Years: 0.00 Types: Cigarettes Quit date: 06/04/2003 Smokeless tobacco: Never Used Comment: 2003 Alcohol use: No Drug use: No Other Topics Concern Caffeine Concern No Special Diet No Exercise No REVIEW OF SYSTEMS: General: No chills, fever, weight loss, night sweats. SHEENT: No change in vision or auditory acuity. Respiratory: No productive cough. History of COPD Cardiac: As noted above. GI: As above. History of GERD. : No dysuria. Musculoskeletal: No myalgias. Neurologic: No strokes. Psychiatric: History of depression. Endocrine: Chronic diabetes. Hematologic: As above. PHYSICAL EXAMINATION: S/he is alert and in no distress VITAL SIGNS: BP 126/52 Pulse 58 Ht 6' 0 (1.83m) Wt 223 lb 14.4 oz (101.6kg) BMI 30.36 kg/(m2). SHEENT: Skin is warm and dry. Pupils are round and reactive. No xanthelasmas appreciated. Pharynx is benign. There is no oral cyanosis. Neck: supple. No adenopathy or thyroid enlargement. Chest: Clear to auscultation. There is mild expiratory prolongation. Trachea is midline. Air entry is equal. There is no chest wall tenderness. Cardiac: Regular rhythm. S1 and S2 are normal. PMI is nondisplaced. There is a soft systolic ejection murmur. No click is heard. Carotids are brisk with loud bilateral bruits. JVP is less than 10 cm. Abdomen: Soft and nontender. There are no pulsatile masses or bruits. No liver enlargement. Bowel sounds are active. : Deferred. Extremities: Trace edema. Pulses are markedly diminished in the feet. There is no evidence of ischemia. No clubbing or cyanosis. Bilateral femoral bruits. Neurologic: Grossly normal motor and sensory. S/he is alert and oriented x4. Musculoskeletal: No joint deformities. Extensive records from [facility] were reviewed. At the time of admission, his BUN was 156 and creatinine 3.6. At the time of discharge, blood urea nitrogen was 20 and creatinine 1.2. EKG showed atrial fibrillation with minor repolarization changes. Rhythm was sinus at the time of discharge. He was started on xarelto and is tolerating this well. He had been on aspirin and Plavix prior to admission. Aspirin was discontinued. There is a history of falls in the past. He had significant head trauma two years ago after falling off a ladder. Most recent hemoglobin had improved to 10 point 6. Renal function is stable with creatinine 1.3. LDL was 83 Echocardiogram shows normal LV function. There is mild aortic stenosis. Electronically Signed: Terry Gtz MD October 10, 2018 11:03 AM CC: Payam Ruvalcaba MD CNOV Observed: 10/10/2018 Status: COMPLETED Source: [place] 10:15 AM [facility] REPOSITORY Office Visit (CAWSTR) GIANA TANG ([id number]) 1950 M NFR Date Time Provider Department 10/10/18 10:15 AM TERRY GTZ During your visit today, we recorded the following information about you: Pulse Blood pressure Weight Height 58/minute 126/52 101.6 kg 1.829 m Terry Gtz MD 10/10/2018 5:52 PM Signed PERTINENT CARDIAC HISTORY ASHD - Chronic RCA occlusion, PCI LAD 2002, chronic DAPT Carotid disease 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 Easy bruising, which appears to be related to aspirin and Plavix use. Numerous additional psychophysiologic symptoms. 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 Chronic fatigue syndrome and fibromyalgia Exposure to [employer] [place] ADHERENCE TO GUIDELINES DIANE-I or ARB for HF with prior LVEF<40 (NQF 0081) - N/A ASA or Plavix for ASHD (NQF 0067) - met Beta becky for ASHD with prior SD or prior LVEF<40 (NQF 0070) - N/A Beta becky for HF with prior LVEF<40 (NQF 0083) - N/A DIANE-I or ARB for ASHD with DM or prior LVEF<40 (NQF 0066) - N/A Statin therapy for ASHD or FHL or DM - met BMI documented and plan if >25 (NQF 0421) - lifestyle recommendation form Tobacco use screening and referral (NQF 0028) - lifestyle recommendation form Recommendation for whole food, plant based diet - lifestyle recommendation form CLINICAL IMPRESSION/PLAN: Giana Tang has multiple cardiac issues. We discussed the fact that he had slight troponin release during his atrial fibrillation. He was under severe metabolic stress. He has been free of symptoms of ischemia over the last several years. I recommend that he consider pharmacologic nuclear stress test, but he has declined. He voices understanding of the risk of undiagnosed progressive coronary disease. He has significant peripheral vascular disease with an ulceration on the left foot. He is advised to continue appointment set wound care clinic. He will be referred to vascular surgery for consideration of possible repeat intervention. Carotid Doppler examination has been requested. Metoprolol dose will be continued for the time being, but we may consider decreasing in the future. I've asked him to keep track of his heart rate. Atrial fibrillation was probably related to his metabolic stress and not to ischemia or an underlying fibrillatory substrate. He's been advised to continue monitoring for recurrence. Xarelto is currently being tolerated, but he is at significant risk of bleeding. He was advised to call me if he has any abnormal bleeding or if he begins having more frequent falls. Plavix will be continued for the time being. We will check CBC and basic profile in one week. I will see him in 2 months or as needed. I've advised him to call if he has recurrent symptoms. Total duration of this visit was greater than 80 minutes, including counseling, history taking, exam and review of voluminous old records. Thank you for asking me to see and make recommendations on Giana Tang. This report is available to you in the shared medical record. Written and verbal health teaching given to patient, patient verbalizes understanding and agrees with treatment plan. DIAGNOSIS FOR VISIT: ASHD Hypertension HISTORY OF PRESENT ILLNESS Giana Tang is a 68-year-old gentleman with history of coronary disease and hypertension and multiple other cardiac issues, as noted above. He is seen in consultation at the request of Prosper Faria CNP and Dr. Ruvalcaba. He was followed by Dr. Beckford several years ago. Most recently, he has been followed by Dr. Palafox, but they recently fell out over a disagreement about medical therapy. He had a recent admission for treatment of profound dehydration with associated GI bleed, severe anemia and transient atrial fibrillation. He required transient dialysis but his renal function recovered rapidly. He does not recall being ill prior to the event and it is unclear how he got so dehydrated. His DIANE inhibitor was recently restarted. He was on aspirin, Plavix, statin, metoprolol and lisinopril prior to the recent event. He was started on anticoagulation and is tolerating this well. His GI tract was reportedly evaluated in the hospital. He's had no change in color or stool since discharge. His blood pressure has been under good control. He denies chest discomfort. His coronary disease is quite stable. No assessment of coronary perfusion was done in the hospital. It was recommended that he consider stress testing after discharge. He's had no orthopnea. He's had minimal edema. Overall his exercise tolerance has been stable over the last year or so. He denies TIAs, amaurosis, palpitations, syncope. He has chronic claudication. He has an ulcer on the bottom of his left foot which is being evaluated by wound care. He has known carotid artery disease. He also has severe peripheral vascular disease and has undergone intervention on the left leg in the past. He would like to establish with [facility] vascular surgery. Risk factors for coronary disease include hyperlipidemia, diabetes, hypertension, chronic renal insufficiency ALLERGIES: ALLERGIES Allergen Reactions - Gabapentin Other: See Comments Rash, hives, itching, trouble breathing, shakiness, trouble with eyesight - Arthritis [Homeopat* - Atarax [Hydroxyzine* Unknown - Cefaclor - Cholesterol any cholestrol lowering medication - Cipro [Ciprofloxaci* - Creatine Monohydrate muscle spasms - Crestor [Rosuvastat* Unknown - Darvocet A500 [Prop* Hives, airway closes - Dye- Red And Yellow* Unknown - Elavil [Amitriptyli* Increased depression - Influenza Vaccine T* Hives, Other: See Comments Throat swelling - Iodine [Contrast Dy* - Latex Hives - Levaquin [Levofloxa* Unknown - Lidocaine Close airway - Lipitor [Atorvastat* Unknown - Losartan Hives - Lovastatin Unknown - Muscle Relaxants [O* - Niacin Intolerance - Penicillins Hives Close airway - Pneumovax 23 [Pneum* Hives Also caused severe GI upset - Simvastatin Hives, Other: See Comments Gastrointestinal/colitis symptoms - Sulfa (Sulfonamide * - Tetanus Vaccines An* Anaphylaxis - Tetracycline - Zithromax [Azithrom* CURRENT OUTPATIENT MEDICATIONS: metoprolol tartrate, short acting, (LOPRESSOR) 50 mg tablet Take 1 tablet by mouth twice daily. lisinopril (ZESTRIL, PRINIVIL) 10 mg tablet Take 1 tablet by mouth twice daily. rivaroxaban (XARELTO) 20 mg tablet Take 1 tablet by mouth once daily. clopidogrel (PLAVIX) 75 mg tablet Take 1 tablet by mouth once daily. pravastatin (PRAVACHOL) 40 mg tablet Take 1 tablet by mouth once daily. COMPOUNDED PRESCRIPTION Kiarra. Apply as directed. Diabetic Foot Ulcer, Left foot. 1.6 cm x 1.3 cm x 0.1 cm. collagenase (SANTYL) ointment Apply 1 application to affected area once daily. APPLY TO AFFECTED AREA Lancets (ONE TOUCH ULTRASOFT LANCETS) lancets Patient test sugar level 3x daily. blood sugar diagnostic (ONE TOUCH ULTRA TEST) test strip Use as instructed to check blood sugars albuterol HFA (PROAIR HFA) 90 mcg/Actuation INHALATION inhaler Inhale 2 Puffs as instructed every 6 hours as needed. PAST MEDICAL HISTORY Diagnosis Date - Abdominal pain, left lower quadrant - Arthritis - Hua's esophagus - CAD (coronary artery disease) - Candidiasis - Chronic fatigue disorder - Colitis - COPD (chronic obstructive pulmonary disease) (HCC) - Diabetes mellitus (HCC) - Diarrhea - Elevated cholesterol - Emphysema Dr. Castillo - Esophagitis, unspecified Barretts esophagitis - Fibromyalgia - HBP (high blood pressure) - Heart AND renal disease, hypertensive benign, heart fail/chr renal dis (HCC) - Herniated intervertebral disk - Joint pain - Loss of balance - Neuropathy (HCC) - Neuropathy in diabetes (HCC) - Other and unspecified hyperlipidemia - Other and unspecified hyperlipidemia - Peripheral vascular disease, unspecified (HCC) - Prostatitis - Shortness of breath - Shortness of breath - Sleep deprivation - Sleep disorder - Snoring - Ulcerative colitis (HCC) PAST SURGICAL HISTORY Procedure Laterality Date - CARD CATH DIAGNOSTIC 01/2003 left - COLONOSCOP W/ OR W/O [facility] SPEC 12/27/2016 Colonoscopy - COLONOSCOP W/ OR W/O BRSH SPEC 03/11/2017 Colonoscopy - COLONOSCOPY W/BX 01/11/11 - EGD W/O BRSH SPECIMEN W/BX 01/11/11 - EGD W/O OR W/BRUSH/WASH 03/12/13 EGD - PERC TRANSL COR ANGIO 2002 Percutaneous Transluminal Coronary Angio Status FAMILY HISTORY Problem Relation Age of Onset - Emphysema Mother - Osteoporosis Mother - Heart Mother - Heart Father - Diabetes Brother - Heart Brother - Obesity Brother Social History Marital status: Unknown Spouse name: Samanta Years of education: Number of children: 1 Occupational History Occupation Employer Comment retired Social History Main Topics Smoking status: Former Smoker Packs/day: 2.00 Years: 0.00 Types: Cigarettes Quit date: 06/04/2003 Smokeless tobacco: Never Used Comment: 2003 Alcohol use: No Drug use: No Other Topics Concern Caffeine Concern No Special Diet No Exercise No REVIEW OF SYSTEMS: General: No chills, fever, weight loss, night sweats. SHEENT: No change in vision or auditory acuity. Respiratory: No productive cough. History of COPD Cardiac: As noted above. GI: As above. History of GERD. : No dysuria. Musculoskeletal: No myalgias. Neurologic: No strokes. Psychiatric: History of depression. Endocrine: Chronic diabetes. Hematologic: As above. PHYSICAL EXAMINATION: S/he is alert and in no distress VITAL SIGNS: BP 126/52 Pulse 58 Ht 6' 0 (1.83m) Wt 223 lb 14.4 oz (101.6kg) BMI 30.36 kg/(m2). SHEENT: Skin is warm and dry. Pupils are round and reactive. No xanthelasmas appreciated. Pharynx is benign. There is no oral cyanosis. Neck: supple. No adenopathy or thyroid enlargement. Chest: Clear to auscultation. There is mild expiratory prolongation. Trachea is midline. Air entry is equal. There is no chest wall tenderness. Cardiac: Regular rhythm. S1 and S2 are normal. PMI is nondisplaced. There is a soft systolic ejection murmur. No click is heard. Carotids are brisk with loud bilateral bruits. JVP is less than 10 cm. Abdomen: Soft and nontender. There are no pulsatile masses or bruits. No liver enlargement. Bowel sounds are active. : Deferred. Extremities: Trace edema. Pulses are markedly diminished in the feet. There is no evidence of ischemia. No clubbing or cyanosis. Bilateral femoral bruits. Neurologic: Grossly normal motor and sensory. S/he is alert and oriented x4. Musculoskeletal: No joint deformities. Extensive records from [facility] were reviewed. At the time of admission, his BUN was 156 and creatinine 3.6. At the time of discharge, blood urea nitrogen was 20 and creatinine 1.2. EKG showed atrial fibrillation with minor repolarization changes. Rhythm was sinus at the time of discharge. He was started on xarelto and is tolerating this well. He had been on aspirin and Plavix prior to admission. Aspirin was discontinued. There is a history of falls in the past. He had significant head trauma two years ago after falling off a ladder. Most recent hemoglobin had improved to 10 point 6. Renal function is stable with creatinine 1.3. LDL was 83 Echocardiogram shows normal LV function. There is mild aortic stenosis. Electronically Signed: Terry Gtz MD October 10, 2018 11:03 AM CC: Payam Ruvalcaba MD Referring Provider: PROSPER FARIA ([facility]) [[id number]] Allergies As of Date: 10/10/2018 Noted Allergy Reaction GABAPENTIN 03/17/2018 14 - Other: See Comments Comments: Rash, hives, itching, trouble breathing, shakiness, trouble with eyesight ARTHRITIS (HOMEOPATHIC PRODUCTS) 04/30/2006 ATARAX (HYDROXYZINE HCL) 06/27/2011 16 - Unknown CEFACLOR 04/30/2006 CHOLESTEROL 04/30/2006 Comments: any cholestrol lowering medication CIPRO (CIPROFLOXACIN) 04/30/2006 CREATINE MONOHYDRATE 07/17/2007 Comments: muscle spasms CRESTOR (ROSUVASTATIN CALCIUM) 06/27/2011 16 - Unknown DARVOCET A500 (PROPOXYPHENE N-DIANE*04/30/2006 Comments: Hives, airway closes DYE- red and yellow [Other] 06/27/2011 16 - Unknown ELAVIL (AMITRIPTYLINE HCL) 08/01/2007 Comments: Increased depression INFLUENZA VACCINE TRI-SP 09-10 08/28/2012 4 - Hives 14 - Other: See Comments Comments: Throat swelling IODINE (CONTRAST DYE) 04/30/2006 LATEX 04/30/2006 4 - Hives LEVAQUIN (LEVOFLOXACIN) 06/17/2014 16 - Unknown LIDOCAINE 04/30/2006 Comments: Close airway LIPITOR (ATORVASTATIN CALCIUM) 06/27/2011 16 - Unknown LOSARTAN 03/11/2017 4 - Hives LOVASTATIN 06/27/2011 16 - Unknown muscle relaxants [Other] 04/30/2006 NIACIN 06/27/2011 5 - Intolerance PENICILLINS 04/30/2006 4 - Hives Comments: Close airway PNEUMOVAX 23 (PNEUMOCOCCAL 23-RESHMA*06/27/2011 4 - Hives Comments: Also caused severe GI upset SIMVASTATIN 09/21/2013 4 - Hives 14 - Other: See Comments Comments: Gastrointestinal/colitis symptoms SULFA (SULFONAMIDE ANTIBIOTICS) 04/30/2006 TETANUS VACCINES AND TOXOID 04/08/2007 10 - Anaphylaxis TETRACYCLINE 04/30/2006 ZITHROMAX (AZITHROMYCIN) 04/30/2006 Date Reviewed: 10/10/2018 Reviewed by: Dorie Perrin MA - Fully Assessed Reason for Visit: Establish Care [42] Primary Visit Diagnosis:ASHD (arteriosclerotic heart disease) [I25.10] Other Visit Diagnoses:PAF (paroxysmal atrial fibrillation) ([facility]) [I48.0] Dizziness and giddiness [R42] Order(s):CBC [SQCBC] Order #: [id number] FUTURE BASIC METABOLIC PNL [SQBMP] Order #: [id number] FUTURE metoprolol tartrate, short acting, (LOPRESSOR) 50 mg tabletTake 1 tablet by mouth twice daily.Disp: Rfl: CONSULT TO VASCULAR SURGERY [7532] Order #: [id number]: 1 US CAROTID ARTERIES BILL [facility] [[id number]] Order #: [id number] FUTURE Prescriptions as of 10/10/2018 Sig: METOPROLOL TARTRATE 50 MG TAB* Take 1 tablet by mouth twice * LISINOPRIL 10 MG TABLET Take 1 tablet by mouth twice * RIVAROXABAN 20 MG TABLET Take 1 tablet by mouth once d* CLOPIDOGREL 75 MG TABLET Take 1 tablet by mouth once d* PRAVASTATIN 40 MG TABLET Take 1 tablet by mouth once d* COMPOUNDED PRESCRIPTION Kiarra. Apply as directed. Di* COLLAGENASE CLOSTRIDIUM HISTO* Apply 1 application to affect* LANCETS Patient test sugar level 3x d* BLOOD SUGAR DIAGNOSTIC STRIPS Use as instructed to check bl* * ALBUTEROL SULFATE HFA 90 MCG/* Inhale 2 Puffs as instructed * Problem List As Of Date 10/10/2018 Noted Resolved CHRONIC FATIGUE SYNDROME [R53.82] INVALID FOR* MYALGIA AND MYOSITIS NOS [[id number]] INVALID FOR* Coronary atherosclerosis [I25.10] INVALID FOR* MIXED HYPERLIPIDEMIA [E78.2] INVALID FOR* BPH W/O URINARY OBS/LUTS [N40.0] INVALID FOR* UNILAT INGUINAL HERNIA [K40.90] INVALID FOR* 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] INVALID FOR* Shortness of breath [R06.02] Esophagitis, unspecified [K20.9] INVALID FOR* Environmental allergies [Z91.09] INVALID FOR* Hypogonadism male [E29.1] INVALID FOR* Occlusion and stenosis of carotid artery withou*INVALID FOR* Essential hypertension [I10] INVALID FOR* Hua's esophagus [K22.70] 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*INVALID FOR* Sprain, low back [S33.5XXA] INVALID FOR* PAF (paroxysmal atrial fibrillation) ([facility]) [I48*INVALID FOR* Prescriptions ordered this encounter Disp Refills Start End METOPROLOL TARTRATE 50 MG TABLET 10/10/2018 Class: Med Update Route: ORAL Sig: Take 1 tablet by mouth twice daily. Medications Discontinued During This Encounter metoprolol tartrate, short acting, (* 02/17/2015 10/10/2018 Class: Historical Med Route: ORAL Sig: Take 50 mg by mouth three times daily. Disc: Reason for discontinue is not on file. Follow-up and Disposition History Recorded Encounter Status:Closed by TERRY GTZ MD on 10/10/18 KALLIE Observed: 10/06/2018 Status: COMPLETED Source: [place] 12:00 AM [facility] REPOSITORY Telephone (FAMPWS) GIANA TANG ([id number]) 1950 M NFR Date Time Provider Department 10/06/18 PROSPER FARIA ([facility] During your visit today, we recorded the following information about you: Prosper Faria APRN.CNP 10/06/2018 9:01 AM Signed Please inform patient that his hemoglobin A1c is 5.6%. This is a sign of well-controlled type 2 diabetes. I do not think that we need to restart his metformin. Continue with diet control. His urine showed no protein present. His metabolic profile indicated stable kidney function, improved when compared to hospitalization in June for acute kidney injury. I would suggest continuing with lisinopril and continue to follow up with Dr. Ruvalcaba in one month with recheck of kidney function, blood pressure control. Blood counts are improved when compared to June hospitalization. SHOAIB Rodríguez [facility] 10/06/2018 12:57 PM Signed Spoke with patient , voiced understanding. Lab results mailed to patient, per patients request Evelyn Jain [facility] Evelyn Jain [facility] 10/06/2018 12:58 PM Signed Patient stated that he is taking 2 Metformin daily - 1 in the morning and 1 in the evening Allergies As of Date: 10/06/2018 Noted Allergy Reaction GABAPENTIN 03/17/2018 14 - Other: See Comments Comments: Rash, hives, itching, trouble breathing, shakiness, trouble with eyesight ARTHRITIS (HOMEOPATHIC PRODUCTS) 04/30/2006 ATARAX (HYDROXYZINE HCL) 06/27/2011 16 - Unknown CEFACLOR 04/30/2006 CHOLESTEROL 04/30/2006 Comments: any cholestrol lowering medication CIPRO (CIPROFLOXACIN) 04/30/2006 CREATINE MONOHYDRATE 07/17/2007 Comments: muscle spasms CRESTOR (ROSUVASTATIN CALCIUM) 06/27/2011 16 - Unknown DARVOCET A500 (PROPOXYPHENE N-DIANE*04/30/2006 Comments: Hives, airway closes DYE- red and yellow [Other] 06/27/2011 16 - Unknown ELAVIL (AMITRIPTYLINE HCL) 08/01/2007 Comments: Increased depression INFLUENZA VACCINE TRI-SP -08/28/2012 4 - Hives 14 - Other: See Comments Comments: Throat swelling IODINE (CONTRAST DYE) 04/30/2006 LATEX 04/30/2006 4 - Hives LEVAQUIN (LEVOFLOXACIN) 06/17/2014 16 - Unknown LIDOCAINE 04/30/2006 Comments: Close airway LIPITOR (ATORVASTATIN CALCIUM) 06/27/2011 16 - Unknown LOSARTAN 03/11/2017 4 - Hives LOVASTATIN 06/27/2011 16 - Unknown muscle relaxants [Other] 04/30/2006 NIACIN 06/27/2011 5 - Intolerance PENICILLINS 04/30/2006 4 - Hives Comments: Close airway PNEUMOVAX 23 (PNEUMOCOCCAL 23-RESHMA*06/27/2011 4 - Hives Comments: Also caused severe GI upset SIMVASTATIN 09/21/2013 4 - Hives 14 - Other: See Comments Comments: Gastrointestinal/colitis symptoms SULFA (SULFONAMIDE ANTIBIOTICS) 04/30/2006 TETANUS VACCINES AND TOXOID 04/08/2007 10 - Anaphylaxis TETRACYCLINE 04/30/2006 ZITHROMAX (AZITHROMYCIN) 04/30/2006 Date Reviewed: 10/03/2018 Reviewed by: Prosper ([facility]) Giana - Fully Assessed Reason for Visit: Results [95] Primary Visit Diagnosis:Essential hypertension [I10] Order(s):BASIC METABOLIC PNL [SQBMP] Order #: [id number] FUTURE Prescriptions as of 10/06/2018 Sig: LISINOPRIL 10 MG TABLET Take 1 tablet by mouth twice * METOPROLOL TARTRATE 50 MG TAB* Take 50 mg by mouth three bernice* RIVAROXABAN 20 MG TABLET Take 1 tablet by mouth once d* X LISINOPRIL 10 MG TABLET Take 1 tablet by mouth twice * CLOPIDOGREL 75 MG TABLET Take 1 tablet by mouth once d* PRAVASTATIN 40 MG TABLET Take 1 tablet by mouth once d* COMPOUNDED PRESCRIPTION Kiarra. Apply as directed. Di* COLLAGENASE CLOSTRIDIUM HISTO* Apply 1 application to affect* LANCETS Patient test sugar level 3x d* BLOOD SUGAR DIAGNOSTIC STRIPS Use as instructed to check bl* * ALBUTEROL SULFATE HFA 90 MCG/* Inhale 2 Puffs as instructed * Problem List As Of Date 10/06/2018 Noted Resolved CHRONIC FATIGUE SYNDROME [R53.82] INVALID FOR* MYALGIA AND MYOSITIS NOS [[id number]] INVALID FOR* Coronary atherosclerosis [I25.10] INVALID FOR* MIXED HYPERLIPIDEMIA [E78.2] INVALID FOR* BPH W/O URINARY OBS/LUTS [N40.0] INVALID FOR* UNILAT INGUINAL HERNIA [K40.90] INVALID FOR* 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] INVALID FOR* Shortness of breath [R06.02] Esophagitis, unspecified [K20.9] INVALID FOR* Environmental allergies [Z91.09] INVALID FOR* Hypogonadism male [E29.1] INVALID FOR* Occlusion and stenosis of carotid artery withou*INVALID FOR* Essential hypertension [I10] INVALID FOR* Hua's esophagus [K22.70] 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*INVALID FOR* Sprain, low back [S33.5XXA] INVALID FOR* Encounter Status:Closed by EVELYN JAIN CMA on 10/06/18 ALBUMIN URINE RANDOM Collected: 10/03/2018 Status: F Source: [place] 1:15 PM [facility] REPOSITORY TYPE CODE TESTS RESULT OUT OF REFERENCE UNITS RANGE LAB UALBR 0.0-23.0 mg/L Albumin Urine <12.0 Random Performed By: #### UALBR #### [facility] [address], [place] [address] CBC AND DIFFERENTIAL Collected: 10/03/2018 Status: F Source: [place] 1:13 PM [facility] REPOSITORY TYPE CODE TESTS RESULT OUT OF REFERENCE UNITS RANGE LAB WBC 3.70-11.00 k/uL WBC 7.13 LAB RBC 4.20-6.00 m/uL Low RBC 3.48 LAB HGB 13.0-17.0 g/dL Low Hemoglobin 10.6 LAB HCT 39.0-51.0 % Low Hematocrit 34.5 LAB MCV 80.0-100.0 fL MCV 99.1 LAB MCH 26.0-34.0 pG MCH 30.5 LAB MCHC 30.5-36.0 g/dL MCHC 30.7 LAB RDWCV 11.5-15.0 % RDW-CV 12.5 LAB PLTCT 150-400 k/uL Platelet Count 158 LAB MPV 9.0-12.7 fL MPV 12.7 LAB ANEUT % Neut% 53.9 LAB AANEUT 1.45-7.50 k/uL Abs Neut 3.84 LAB ALYMP % Lymph% 31.3 LAB AALYMP 1.00-4.00 k/uL Abs Lymph 2.23 LAB AMONO % [place]% 10.9 LAB AAMONO <0.87 k/uL Abs [place] 0.78 LAB AEOS % Eosin% 3.6 LAB AAEOS <0.46 k/uL Abs Eosin 0.26 LAB ABASO % Baso% 0.3 LAB AABASO <0.11 k/uL Abs Baso <0.03 LAB AUNRBC 0 /100 WBC NRBCs 0.0 LAB ABNRBC <0.01 k/uL Absolute nRBC <0.01 LAB DTYP DTYPE Auto Diff Performed By: #### CBCDIF, CMP, LIPB, HBA1C #### [facility] [address] [place] [address] COMP METABOLIC PANEL Collected: 10/03/2018 Status: F Source: [place] 1:13 PM [facility] REPOSITORY TYPE CODE TESTS RESULT OUT OF REFERENCE UNITS RANGE LAB TP 6.3-8.0 g/dL Protein, Total 7.9 LAB ALB 3.9-4.9 g/dL Albumin 4.4 LAB CA 8.5-10.2 mg/dL Calcium, Total 9.7 LAB TBIL 0.2-1.3 mg/dL Bilirubin, Total 0.4 LAB ALKP 38-113 U/L Alkaline Phosphatase 71 LAB AST 14-40 U/L AST 23 LAB GLU 74-99 mg/dL Glucose 90 Result Comment: The [place] [employer] (ADA) provides guidance for cutoff values for fasting glucose and random glucose. The ADA defines fasting as no caloric intake for at least 8 hours. Fas ting plasma glucose results between 100 to 125 mg/dL indicate increased risk for diabetes (prediabetes). Fasting plasma glucose results greater than or equal to 126 mg/dL meet the criteria for diagnosis of diabetes. In the absence of unequivocal hyperglycemia, results should be confirmed by repeat testing. In a patient with classic symptoms of hyperglycemia or hyperglycemic crisis, random plasma glucose results greater than or equal to 200 mg/dL meet the criteria for diagnosis of diabetes. Reference: Standards of Medical Care in Diabetes 2016, [place] [employer]. Diabetes Care. 2016.39(Suppl 1). LAB BUN 9-24 mg/dL BUN 23 LAB CRET 0.73-1.22 mg/dL Creatinine High 1.29 LAB NA 136-144 mmol/L Sodium 140 LAB K 3.7-5.1 mmol/L Potassium 4.2 LAB CL 97-105 mmol/L Chloride 104 LAB CO2 22-30 mmol/L CO2 23 LAB AGAP 9-18 mmol/L Anion Gap 13 LAB ALT 10-54 U/L ALT 14 LAB GFRAA eGFR- Amer. >60 LAB GFRNAA . eGFR-All Other Races 55 Result Comment: eGFR (Estimated GFR) Units of measure: mL/min/1.73 meters squared eGFR is derived from the reexpressed MDRD Study equation using the following parameters: serum creatinine, age, gender and race. The creatinine assay has been calibrated to be traceable to IDMS. An eGFR <60 mL/min/1.73m2 for >3 months is consistent with chronic kidney disease. Refer to KDOQI guidelines for clinical interpretation. In patients with unstable renal function, e.g. those with acute kidney injury, the eGFR may not accurately reflect actual GFR. Performed By: #### CBCDIF, CMP, LIPB, HBA1C #### [facility] [address] [place], [place] [address] LIPID PANEL, BASIC Collected: 10/03/2018 Status: F Source: [place] 1:13 PM [facility] REPOSITORY TYPE CODE TESTS RESULT OUT OF REFERENCE UNITS RANGE LAB CHOL <200 mg/dL Cholesterol 168 Result Comment: <200 mg/dL, Desirable 200-239 mg/dL, Borderline high >239 mg/dL, High LAB TRIGLY <150 mg/dL Triglyceride 115 Result Comment: <150 mg/dL, Normal 150-199 mg/dL, Borderline high 200-499 mg/dL, High >499 mg/dL, Very high LAB HDL >39 mg/dL HDL-Cholesterol 62 Result Comment: 40-59 mg/dL, Acceptable >59 mg/dL, High: Negative risk factor for coronary heart disease <40 mg/dL, Low: Positive risk factor for coronary heart disease LAB LDL <100 mg/dL LDL-Cholesterol 83 Result Comment: <100 mg/dL, Optimal 100-129 mg/dL, Near optimal/above optimal 130-159 mg/dL, Borderline high 160-189 mg/dL, High >189 mg/dL, Very high Secondary prevention optimal LDL Cholesterol levels are recommended to be < 70 mg/dL LAB NONHDL <130 mg/dL Non HDL Cholesterol 106 Result Comment: <130 mg/dL, Optimal 130-159 mg/dL, Near optimal/above optimal 160-189 mg/dL, Borderline high 190-219 mg/dL, High >219 mg/dL, Very high Secondary prevention optimal non HDL Cholesterol levels are recommended to be < 100 mg/dL LAB FT hrs Fasting Time 20 LAB VLDL <30 mg/dL VLDL Cholesterol 23 LAB TCHDL <5.10 TC:HDL Ratio 2.71 LAB LDLHDL <2.54 LDL:HDL Ratio 1.34 Result Comment: Reference: 1. National Cholesterol Education Program ATP III Guideline At-A-Glance Quick Desk Reference: National Heart, Lung, and Blood [place]. National Institutes of Health. 2001: NIH Publication No. 01-3305. 2. An International Atherosclerosis Society position paper: global recommendations for the management of dyslipidemia: executive summary, Atherosclerosis. 2014: 232(2):410-413. Performed By: #### CBCDIF, CMP, LIPB, HBA1C #### [facility] [address] [place] [id number] HEMOGLOBIN A1C Collected: 10/03/2018 Status: F Source: [place] 1:13 PM [facility] REPOSITORY TYPE CODE TESTS RESULT OUT OF REFERENCE UNITS RANGE LAB HGBA1C 4.3-5.6 % Hemoglobin A1c 5.6 Result Comment: [place] [employer] guidelines indicate that patients with HgbA1c in the range 5.7-6.4% are at increased risk for development of diabetes, and intervention by lifestyle modification may be beneficial. HgbA1c greater or equal to 6.5% is considered diagnostic of diabetes. LAB HBA0 mg/dL Est. Average Glucose 114 Result Comment: eAG: (Estimated average glucose) is a calculated value from HgbA1c and is school admissions representative of the average blood glucose level in the last 2-3 month period. Performed By: #### CBCDIF, CMP, LIPB, HBA1C #### [facility] [address] [place], [place] [address] CNOV Observed: 10/03/2018 Status: COMPLETED Source: [place] 12:40 PM [facility] REPOSITORY Office Visit (FAMPWS) GIANA TANG ([id number]) 1950 M NFR Date Time Provider Department 10/03/18 12:40 PM PROSPER FARIA ([facility]) [facility] During your visit today, we recorded the following information about you: Pulse Blood pressure Weight 44/minute 153/56 100.2 kg Prosper Faria APRN.CNP 10/03/2018 12:52 PM Signed Chief Complaint Patient presents with: Recheck HPI Giana Tang is a 68 year old male who presents here today for Above Complaints. Patient presents the office today for follow-up for diabetes. patient has not been seen in this office for greater than 10 months. he did have a hospitalization in June for a GI bleed, A. Fib, BLAYNE and medications were discontinued by was her hospital prior. The only taking 4 medications daily. Nothing for diabetes. Has not gotten any of his labs drawn that are ordered. He has been checking his blood glucose daily. Has been controlling his blood glucose at home with diet and some exercise. Glucose readings have been ranging from 109-122. This is without any medications. Does have a left foot diabetic ulcer. Has been present for one month. Has been applying Santyl to the foot. Ulcer has not been getting better. Would like to go to the [facility]. No swelling or redness of the foot. at this time, he denies any chest pain, shortness of breath. He states that he does not know if he is in A. fib or not today. He has not followed up with cardiology at [facility] as he states that he had a falling out with them. 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 Past medical history, appointments, medications, allergies reviewed. Previous Medical History PAST MEDICAL HISTORY Diagnosis Date - Abdominal pain, left lower quadrant - Arthritis - Hua's esophagus - CAD (coronary artery disease) - Candidiasis - Chronic fatigue disorder - Colitis - COPD (chronic obstructive pulmonary disease) ([facility]) - Diabetes mellitus ([facility]) - Diarrhea - Elevated cholesterol - Emphysema Dr. Castillo - Esophagitis, unspecified Barretts esophagitis - Fibromyalgia - HBP (high blood pressure) - Heart AND renal disease, hypertensive benign, heart fail/chr renal dis ([facility]) - Herniated intervertebral disk - Joint pain - Loss of balance - Neuropathy ([facility]) - Neuropathy in diabetes ([facility]) - Other and unspecified hyperlipidemia - Other and unspecified hyperlipidemia - Peripheral vascular disease, unspecified ([facility]) - Prostatitis - Shortness of breath - Shortness of breath - Sleep deprivation - Sleep disorder - Snoring - Ulcerative colitis ([facility]) Previous Surgical History PAST SURGICAL HISTORY Procedure Laterality Date - CARD CATH DIAGNOSTIC 01/2003 left - COLONOSCOP W/ OR W/O BRSH SPEC 12/27/2016 Colonoscopy - COLONOSCOP W/ OR W/O BRS SPEC 03/11/2017 Colonoscopy - COLONOSCOPY W/BX 01/11/11 - EGD W/O BRSH SPECIMEN W/BX 01/11/11 - EGD W/O OR W/BRUSH/WASH 03/12/13 EGD - PERC TRANSL COR ANGIO 2002 Percutaneous Transluminal Coronary Angio Status Family History FAMILY HISTORY Problem Relation Age of Onset - Emphysema Mother - Osteoporosis Mother - Heart Mother - Heart Father - Diabetes Brother - Heart Brother - Obesity Brother Patient Allergies ALLERGIES Allergen Reactions - Gabapentin Other: See Comments Rash, hives, itching, trouble breathing, shakiness, trouble with eyesight - Arthritis [Homeopat* - Atarax [Hydroxyzine* Unknown - Cefaclor - Cholesterol any cholestrol lowering medication - Cipro [Ciprofloxaci* - Creatine Monohydrate muscle spasms - Crestor [Rosuvastat* Unknown - Darvocet A500 [Prop* Hives, airway closes - Dye- Red And Yellow* Unknown - Elavil [Amitriptyli* Increased depression - Influenza Vaccine T* Hives, Other: See Comments Throat swelling - Iodine [Contrast Dy* - Latex Hives - Levaquin [Levofloxa* Unknown - Lidocaine Close airway - Lipitor [Atorvastat* Unknown - Losartan Hives - Lovastatin Unknown - Muscle Relaxants [O* - Niacin Intolerance - Penicillins Hives Close airway - Pneumovax 23 [Pneum* Hives Also caused severe GI upset - Simvastatin Hives, Other: See Comments Gastrointestinal/colitis symptoms - Sulfa (Sulfonamide * - Tetanus Vaccines An* Anaphylaxis - Tetracycline - Zithromax [Azithrom* Current Medications Current Outpatient Prescriptions on File Prior to Visit: clopidogrel (PLAVIX) 75 mg tablet Take 1 tablet by mouth once daily. pravastatin (PRAVACHOL) 40 mg tablet Take 1 tablet by mouth once daily. COMPOUNDED PRESCRIPTION Kiarra. Apply as directed. Diabetic Foot Ulcer, Left foot. 1.6 cm x 1.3 cm x 0.1 cm. collagenase (SANTYL) ointment Apply 1 application to affected area once daily. APPLY TO AFFECTED AREA (Patient not taking: Reported on 09/08/2018 ) Lancets (ONE TOUCH ULTRASOFT LANCETS) lancets Patient test sugar level 3x daily. blood sugar diagnostic (ONE TOUCH ULTRA TEST) test strip Use as instructed to check blood sugars albuterol HFA (PROAIR HFA) 90 mcg/Actuation INHALATION inhaler Inhale 2 Puffs as instructed every 6 hours as needed. No current facility-administered medications on file prior to visit. Social History Social History Marital status: Unknown Spouse name: Samanta Years of education: Number of children: 1 Occupational History Occupation Employer Comment retired Social History Main Topics Smoking status: Former Smoker Packs/day: 2.00 Years: 0.00 Types: Cigarettes Quit date: 06/04/2003 Smokeless tobacco: Never Used Comment: 2003 Alcohol use: No Drug use: No Other Topics Concern Caffeine Concern No Special Diet No Exercise No REVIEW OF SYSTEMS: as above ? Reviewed relevant PMHx, PSHx, Social Hx, current medications and allergies. EXAM: BP 153/56 Pulse (!) 44 Wt 100.2 kg (221 lb) BMI 29.97 kg/m? General Appearance: Well appearing, alert, in no acute distress, well-hydrated, well nourished.. Skin: superficial diabetic ulcer located on the plantar side of the left foot, without any erythema, swelling... Head: Normocephalic, no masses, lesions, tenderness or abnormalities. Eyes: Anicteric sclera. Pupils are equally round and reactive to light. Extraocular movements are intact. . Ears: External ears normal, canals clear. Nose/Sinuses: Nares normal, septum midline, mucosa normal, no drainage or sinus tenderness. Oropharynx: Lips, mucosa, and tongue normal, teeth and gums normal, oropharynx normal. Neck: Supple, no adenopathy; thyroid symmetric, normal size, no bruits. Lungs: lungs clear to auscultation. No wheezing, rhonchi, rales. Heart: RRR without murmur, gallop, or rubs. No ectopy. Feet:Shoes and socks removed, not sensitive to monofilament bilaterally and ulcers Health Maintenance List DILATED RETINAL EXAM due on 01/06/1958 DIABETIC FOOT EXAM due on 01/06/1958 ANNUAL PCP TEAM CHRONIC DISEASE VISIT due on 01/06/1966 DTAP,TDAP,TD(1 - Tdap) due on 01/06/1967 URINE ALBUMIN:CREATININE RATIO due on 04/13/2011 ABDOMINAL AORTIC ANEURYSM SCREENING TOPIC due on 01/06/2013 LDL CHOLESTEROL due on 11/14/2017 HBA1C due on 02/11/2018 STATIN MED ADHERENCE due on 10/04/2018 DIABETES MED ADHERENCE due on 10/04/2018 BP CONTROLLED (<130/80) due on 09/08/2019 COLORECTAL CANCER SCREENING,SEE MODIFIER due on 03/11/2020 ADULT PREVNAR-13 Completed INFLUENZA Completed HEPATITIS C SCREENING Completed PNEUMOVAX AGE 65 AND OVER WITH 5YR LOOKBACK Completed Data reviewed External CBC, CMP reviewed from [facility] ASSESSMENT/PLAN: 1. Type 2 diabetes mellitus without complication, without long-term current use of insulin (HCC) - ICD9: 250.00, ICD10: E11.9 (primary diagnosis) The patient is new to me. - Encouraged regular aerobic exercise and weight loss - patient is currently not any medications at this time due to past finding of a BLAYNE. we will check hemoglobin A1c today. His fasting glucose readings have been normal range at 109-122. with normal kidney function will restart metformin. 2. Hypertension, essential - ICD9: 401.9, ICD10: I10 - suboptimal control - Begin lisinopril (Zestril/Prinivil) - Recommended regular aerobic exercise. - Recommend home blood pressure monitoring, to bring results in on next visit - Goal of BP <130/80 - LISINOPRIL 10 MG TABLET 3. Mixed hyperlipidemia - ICD9: 272.2, ICD10: E78.2 - good control and - to be determined upon return of lab results - Continue current medication. - Encouraged following a low fat, low cholesterol diet. - Discussed the benefits of regular aerobic exercise and weight loss. 4. 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 Patient will continue with Santyl application. 5. Atrial fibrillation, unspecified type (HCC) - ICD9: 427.31, ICD10: I48.91 - normal sinus rhythm today, continues her alto and metoprolol as prescribed. - CONSULT TO CARDIOLOGY Get labs today, follow up with Dr. Ruvalcaba in 1 month. 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 Referring Provider: SELF [200] Allergies As of Date: 10/03/2018 Noted Allergy Reaction GABAPENTIN 03/17/2018 14 - Other: See Comments Comments: Rash, hives, itching, trouble breathing, shakiness, trouble with eyesight ARTHRITIS (HOMEOPATHIC PRODUCTS) 04/30/2006 ATARAX (HYDROXYZINE HCL) 06/27/2011 16 - Unknown CEFACLOR 04/30/2006 CHOLESTEROL 04/30/2006 Comments: any cholestrol lowering medication CIPRO (CIPROFLOXACIN) 04/30/2006 CREATINE MONOHYDRATE 07/17/2007 Comments: muscle spasms CRESTOR (ROSUVASTATIN CALCIUM) 06/27/2011 16 - Unknown DARVOCET A500 (PROPOXYPHENE N-DIANE*04/30/2006 Comments: Hives, airway closes DYE- red and yellow [Other] 06/27/2011 16 - Unknown ELAVIL (AMITRIPTYLINE HCL) 08/01/2007 Comments: Increased depression INFLUENZA VACCINE TRI-SP -08/28/2012 4 - Hives 14 - Other: See Comments Comments: Throat swelling IODINE (CONTRAST DYE) 04/30/2006 LATEX 04/30/2006 4 - Hives LEVAQUIN (LEVOFLOXACIN) 06/17/2014 16 - Unknown LIDOCAINE 04/30/2006 Comments: Close airway LIPITOR (ATORVASTATIN CALCIUM) 06/27/2011 16 - Unknown LOSARTAN 03/11/2017 4 - Hives LOVASTATIN 06/27/2011 16 - Unknown muscle relaxants [Other] 04/30/2006 NIACIN 06/27/2011 5 - Intolerance PENICILLINS 04/30/2006 4 - Hives Comments: Close airway PNEUMOVAX 23 (PNEUMOCOCCAL 23-RESHMA*06/27/2011 4 - Hives Comments: Also caused severe GI upset SIMVASTATIN 09/21/2013 4 - Hives 14 - Other: See Comments Comments: Gastrointestinal/colitis symptoms SULFA (SULFONAMIDE ANTIBIOTICS) 04/30/2006 TETANUS VACCINES AND TOXOID 04/08/2007 10 - Anaphylaxis TETRACYCLINE 04/30/2006 ZITHROMAX (AZITHROMYCIN) 04/30/2006 Date Reviewed: 10/03/2018 Reviewed by: Prosper ([facility]) Giana - Fully Assessed Reason for Visit: Recheck [92] Primary Visit Diagnosis:Type 2 diabetes mellitus without complication, without long-term current use of insulin ([facility]) [E11.9] Other Visit Diagnoses:Hypertension, essential [I10] Mixed hyperlipidemia [E78.2] 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 due to underlying condition, limited to breakdown of skin ([facility]) [E08.621, L97.421] Atrial fibrillation, unspecified type ([facility]) [I48.91] Order(s):rivaroxaban (XARELTO) 20 mg tabletTake 1 tablet by mouth once daily.Disp: 30 tabletRfl: 2 lisinopril (ZESTRIL, PRINIVIL) 10 mg tabletTake 1 tablet by mouth twice daily.Disp: 30 tabletRfl: 2 CONSULT TO CARDIOLOGY [9004] Order #: [id number]: 1 Prescriptions as of 10/03/2018 Sig: METOPROLOL TARTRATE 50 MG TAB* Take 50 mg by mouth three bernice* RIVAROXABAN 20 MG TABLET Take 1 tablet by mouth once d* CLOPIDOGREL 75 MG TABLET Take 1 tablet by mouth once d* PRAVASTATIN 40 MG TABLET Take 1 tablet by mouth once d* COLLAGENASE CLOSTRIDIUM HISTO* Apply 1 application to affect* LISINOPRIL 10 MG TABLET Take 1 tablet by mouth twice * COMPOUNDED PRESCRIPTION Kiarra. Apply as directed. Di* LANCETS Patient test sugar level 3x d* BLOOD SUGAR DIAGNOSTIC STRIPS Use as instructed to check bl* * ALBUTEROL SULFATE HFA 90 MCG/* Inhale 2 Puffs as instructed * Problem List As Of Date 10/03/2018 Noted Resolved CHRONIC FATIGUE SYNDROME [R53.82] INVALID FOR* MYALGIA AND MYOSITIS NOS [ONB4440] INVALID FOR* Coronary atherosclerosis [I25.10] INVALID FOR* MIXED HYPERLIPIDEMIA [E78.2] INVALID FOR* BPH W/O URINARY OBS/LUTS [N40.0] INVALID FOR* UNILAT INGUINAL HERNIA [K40.90] INVALID FOR* 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] INVALID FOR* Shortness of breath [R06.02] Esophagitis, unspecified [K20.9] INVALID FOR* Environmental allergies [Z91.09] INVALID FOR* Hypogonadism male [E29.1] INVALID FOR* Occlusion and stenosis of carotid artery withou*INVALID FOR* Essential hypertension [I10] INVALID FOR* Hua's esophagus [K22.70] 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*INVALID FOR* Sprain, low back [S33.5XXA] INVALID FOR* Prescriptions ordered this encounter Disp Refills Start End RIVAROXABAN 20 MG TABLET 30 t* 2 10/03/2018 Route: ORAL Sig: Take 1 tablet by mouth once daily. LISINOPRIL 10 MG TABLET 30 t* 2 10/03/2018 Route: ORAL Sig: Take 1 tablet by mouth twice daily. Medications Discontinued During This Encounter Chlorhexidine Gluconate (PERIDEX) 0.* 473 * 11 08/27/2018 10/03/2018 Route: MUCOUS MEMBRANE (TOPICAL MOUTH AND THROAT) Sig: Use 15 mL as instructed twice daily. Disc: Discontinued by another Health Care Provider pantoprazole DR (PROTONIX) 40 mg tab* 07/09/2018 10/03/2018 Class: Historical Med Route: ORAL Sig: Take 1 tablet by mouth once daily. Disc: Discontinued by another Health Care Provider rivaroxaban (XARELTO) 20 mg tablet 30 t* 07/09/2018 10/03/2018 Class: Historical Med Route: ORAL Sig: Take 1 tablet by mouth daily with dinner. Disc: Discontinued by another Health Care Provider COMPOUNDED PRESCRIPTION 1 Ea* 0 07/10/2018 10/03/2018 Class: Print RX Sig: Drive Medical Bath Seat without Back. Disp 1 each Disc: Discontinued by another Health Care Provider DULoxetine (CYMBALTA) 30 mg capsule 30 c* 2 03/17/2018 10/03/2018 Route: ORAL Sig: Take 1 capsule by mouth once daily. Disc: Discontinued by another Health Care Provider gabapentin (NEURONTIN) 300 mg capsule 90 c* 2 03/12/2018 10/03/2018 Route: ORAL Sig: Take 1 capsule by mouth three times daily for 90 days. Disc: Discontinued by another Health Care Provider aspirin, enteric coated (ASPIRIN, EN* 90 t* 3 03/11/2018 10/03/2018 Route: ORAL Sig: Take 1 tablet by mouth once daily. Patient not taking: Reported on 09/08/2018 Disc: Discontinued by another Health Care Provider spironolactone (ALDACTONE) 25 mg tab* 90 t* 3 03/11/2018 10/03/2018 Route: ORAL Sig: Take 1 tablet by mouth once daily. Patient not taking: Reported on 09/08/2018 Disc: Discontinued by another Health Care Provider metoprolol tartrate, short acting, (* 270 * 3 12/24/2017 10/03/2018 Route: ORAL Sig: Take 1 tablet by mouth three times daily. Disc: Discontinued by another Health Care Provider mesalamine (ASACOL HD) 800 mg TbEC E* 180 * 3 11/28/2017 10/03/2018 Route: ORAL Sig: Take 1 tablet by mouth twice daily. Patient not taking: Reported on 09/08/2018 Disc: Discontinued by another Health Care Provider lisinopril (PRINIVIL) 20 mg tablet 180 * 3 10/30/2017 10/03/2018 Route: ORAL Sig: Take 1 tablet by mouth twice daily. Patient not taking: Reported on 09/08/2018 Disc: Discontinued by another Health Care Provider fluconazole (DIFLUCAN) 150 mg tablet 10 t* 0 09/12/2017 10/03/2018 Route: ORAL Sig: Take 1 tablet by mouth once daily. Patient not taking: Reported on 03/12/2018 Disc: Discontinued by another Health Care Provider erythromycin (SHAE-TAB) 250 mg EC tab* 40 t* 0 09/10/2017 10/03/2018 Sig: TAKE ONE TABLET BY MOUTH FOUR TIMES DAILY. TAKE THIS FIRST, THEN TAKE DIFLUCAN Patient not taking: Reported on 03/12/2018 Disc: Discontinued by another Health Care Provider metFORMIN ER (GLUCOPHAGE XR) 500 mg * 90 t* 11 07/10/2017 10/03/2018 Route: ORAL Sig: Take 1 tablet by mouth three times daily with meals. Patient not taking: Reported on 09/08/2018 Disc: Discontinued by another Health Care Provider diazePAM (VALIUM) 5 mg tablet 11/27/2016 10/03/2018 Class: Historical Med Sig: Disc: Discontinued by another Health Care Provider L. ACIDOPHILUS/PECTIN, CITRUS (ACIDO* 10/03/2018 Class: Historical Med Route: ORAL Sig: Take by mouth once daily. Disc: Discontinued by another Health Care Provider hydrochlorothiazide (HYDRODIURIL, ES* 90 t* 3 08/25/2014 10/03/2018 Route: ORAL Sig: Take 1 tablet by mouth once daily. Patient not taking: Reported on 03/12/2018 Disc: Discontinued by another Health Care Provider nitroglycerin sublingual 0.4 mg SL t* 1 Andres* 5 07/09/2014 10/03/2018 Route: SUBLINGUAL Sig: Dissolve 1 tablet under the tongue every 5 minutes as needed for Chest Pain. Patient not taking: Reported on 09/08/2018 Disc: Discontinued by another Health Care Provider nystatin-triamcinolone cream 60 g 3 03/05/2013 10/03/2018 Route: TOPICAL Sig: Apply 1-2 application to affected area three times daily. Patient not taking: Reported on 09/08/2018 Disc: Discontinued by another Health Care Provider rivaroxaban (XARELTO) 20 mg tablet 07/02/2018 10/03/2018 Class: Historical Med Sig: DAILY Disc: Reason for discontinue is not on file. Disposition: Return in about 1 month (around 11/02/2018) for DM, A-fib, HTN, f/u. Follow-up and Disposition History Recorded Encounter Status:Closed by PROSPER FARIA CNP on 10/03/18 PROGRESS Observed: 10/03/2018 Status: COMPLETED Source: [place] 12:25 PM [facility] REPOSITORY O ID: [id number] Author: Prosper Faria Service: (none) Author Type: Nurse Practitioner Type: Progress Notes Filed: 10/03/2018 12:52 PM Note Text: Chief Complaint Patient presents with: Recheck HPI Giana Tang is a 68 year old male who presents here today for Above Complaints. Patient presents the office today for follow-up for diabetes. patient has not been seen in this office for greater than 10 months. he did have a hospitalization in June for a GI bleed, A. Fib, BLAYNE and medications were discontinued by was her hospital prior. The only taking 4 medications daily. Nothing for diabetes. Has not gotten any of his labs drawn that are ordered. He has been checking his blood glucose daily. Has been controlling his blood glucose at home with diet and some exercise. Glucose readings have been ranging from 109-122. This is without any medications. Does have a left foot diabetic ulcer. Has been present for one month. Has been applying Santyl to the foot. Ulcer has not been getting better. Would like to go to the [facility]. No swelling or redness of the foot. at this time, he denies any chest pain, shortness of breath. He states that he does not know if he is in A. fib or not today. He has not followed up with cardiology at [facility] as he states that he had a falling out with them. 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 Past medical history, appointments, medications, allergies reviewed. Previous Medical History PAST MEDICAL HISTORY Diagnosis Date - Abdominal pain, left lower quadrant - Arthritis - Hua's esophagus - CAD (coronary artery disease) - Candidiasis - Chronic fatigue disorder - Colitis - COPD (chronic obstructive pulmonary disease) ([facility]) - Diabetes mellitus ([facility]) - Diarrhea - Elevated cholesterol - Emphysema Dr. Castillo - Esophagitis, unspecified Barretts esophagitis - Fibromyalgia - HBP (high blood pressure) - Heart AND renal disease, hypertensive benign, heart fail/chr renal dis ([facility]) - Herniated intervertebral disk - Joint pain - Loss of balance - Neuropathy ([facility]) - Neuropathy in diabetes ([facility]) - Other and unspecified hyperlipidemia - Other and unspecified hyperlipidemia - Peripheral vascular disease, unspecified ([facility]) - Prostatitis - Shortness of breath - Shortness of breath - Sleep deprivation - Sleep disorder - Snoring - Ulcerative colitis ([facility]) Previous Surgical History PAST SURGICAL HISTORY Procedure Laterality Date - CARD CATH DIAGNOSTIC 01/2003 left - COLONOSCOP W/ OR W/O [facility] SPEC 12/27/2016 Colonoscopy - COLONOSCOP W/ OR W/O BRS SPEC 03/11/2017 Colonoscopy - COLONOSCOPY W/BX 01/11/11 - EGD W/O BRSH SPECIMEN W/BX 01/11/11 - EGD W/O OR W/BRUSH/WASH 03/12/13 EGD - PERC TRANSL COR ANGIO 2003 Percutaneous Transluminal Coronary Angio Status Family History FAMILY HISTORY Problem Relation Age of Onset - Emphysema Mother - Osteoporosis Mother - Heart Mother - Heart Father - Diabetes Brother - Heart Brother - Obesity Brother Patient Allergies ALLERGIES Allergen Reactions - Gabapentin Other: See Comments Rash, hives, itching, trouble breathing, shakiness, trouble with eyesight - Arthritis [Homeopat* - Atarax [Hydroxyzine* Unknown - Cefaclor - Cholesterol any cholestrol lowering medication - Cipro [Ciprofloxaci* - Creatine Monohydrate muscle spasms - Crestor [Rosuvastat* Unknown - Darvocet A500 [Prop* Hives, airway closes - Dye- Red And Yellow* Unknown - Elavil [Amitriptyli* Increased depression - Influenza Vaccine T* Hives, Other: See Comments Throat swelling - Iodine [Contrast Dy* - Latex Hives - Levaquin [Levofloxa* Unknown - Lidocaine Close airway - Lipitor [Atorvastat* Unknown - Losartan Hives - Lovastatin Unknown - Muscle Relaxants [O* - Niacin Intolerance - Penicillins Hives Close airway - Pneumovax 23 [Pneum* Hives Also caused severe GI upset - Simvastatin Hives, Other: See Comments Gastrointestinal/colitis symptoms - Sulfa (Sulfonamide * - Tetanus Vaccines An* Anaphylaxis - Tetracycline - Zithromax [Azithrom* Current Medications Current Outpatient Prescriptions on File Prior to Visit: clopidogrel (PLAVIX) 75 mg tablet Take 1 tablet by mouth once daily. pravastatin (PRAVACHOL) 40 mg tablet Take 1 tablet by mouth once daily. COMPOUNDED PRESCRIPTION Kiarra. Apply as directed. Diabetic Foot Ulcer, Left foot. 1.6 cm x 1.3 cm x 0.1 cm. collagenase (SANTYL) ointment Apply 1 application to affected area once daily. APPLY TO AFFECTED AREA (Patient not taking: Reported on 09/08/2018 ) Lancets (ONE TOUCH ULTRASOFT LANCETS) lancets Patient test sugar level 3x daily. blood sugar diagnostic (ONE TOUCH ULTRA TEST) test strip Use as instructed to check blood sugars albuterol HFA (PROAIR HFA) 90 mcg/Actuation INHALATION inhaler Inhale 2 Puffs as instructed every 6 hours as needed. No current facility-administered medications on file prior to visit. Social History Social History Marital status: Unknown Spouse name: Samanta Years of education: Number of children: 1 Occupational History Occupation Employer Comment retired Social History Main Topics Smoking status: Former Smoker Packs/day: 2.00 Years: 0.00 Types: Cigarettes Quit date: 06/04/2003 Smokeless tobacco: Never Used Comment: 2003 Alcohol use: No Drug use: No Other Topics Concern Caffeine Concern No Special Diet No Exercise No REVIEW OF SYSTEMS: as above ? Reviewed relevant PMHx, PSHx, Social Hx, current medications and allergies. EXAM: BP 153/56 Pulse (!) 44 Wt 100.2 kg (221 lb) BMI 29.97 kg/m? General Appearance: Well appearing, alert, in no acute distress, well-hydrated, well nourished.. Skin: superficial diabetic ulcer located on the plantar side of the left foot, without any erythema, swelling... Head: Normocephalic, no masses, lesions, tenderness or abnormalities. Eyes: Anicteric sclera. Pupils are equally round and reactive to light. Extraocular movements are intact. . Ears: External ears normal, canals clear. Nose/Sinuses: Nares normal, septum midline, mucosa normal, no drainage or sinus tenderness. Oropharynx: Lips, mucosa, and tongue normal, teeth and gums normal, oropharynx normal. Neck: Supple, no adenopathy; thyroid symmetric, normal size, no bruits. Lungs: lungs clear to auscultation. No wheezing, rhonchi, rales. Heart: RRR without murmur, gallop, or rubs. No ectopy. Feet:Shoes and socks removed, not sensitive to monofilament bilaterally and ulcers Health Maintenance List DILATED RETINAL EXAM due on 01/06/1958 DIABETIC FOOT EXAM due on 01/06/1958 ANNUAL PCP TEAM CHRONIC DISEASE VISIT due on 01/06/1966 DTAP,TDAP,TD(1 - Tdap) due on 01/06/1967 URINE ALBUMIN:CREATININE RATIO due on 04/13/2011 ABDOMINAL AORTIC ANEURYSM SCREENING TOPIC due on 01/06/2013 LDL CHOLESTEROL due on 11/14/2017 HBA1C due on 02/11/2018 STATIN MED ADHERENCE due on 10/04/2018 DIABETES MED ADHERENCE due on 10/04/2018 BP CONTROLLED (<130/80) due on 09/08/2019 COLORECTAL CANCER SCREENING,SEE MODIFIER due on 03/11/2020 ADULT PREVNAR-13 Completed INFLUENZA Completed HEPATITIS C SCREENING Completed PNEUMOVAX AGE 65 AND OVER WITH 5YR LOOKBACK Completed Data reviewed External CBC, CMP reviewed from [facility] ASSESSMENT/PLAN: 1. Type 2 diabetes mellitus without complication, without long-term current use of insulin (HCC) - ICD9: 250.00, ICD10: E11.9 (primary diagnosis) The patient is new to me. - Encouraged regular aerobic exercise and weight loss - patient is currently not any medications at this time due to past finding of a BLAYNE. we will check hemoglobin A1c today. His fasting glucose readings have been normal range at 109-122. with normal kidney function will restart metformin. 2. Hypertension, essential - ICD9: 401.9, ICD10: I10 - suboptimal control - Begin lisinopril (Zestril/Prinivil) - Recommended regular aerobic exercise. - Recommend home blood pressure monitoring, to bring results in on next visit - Goal of BP <130/80 - LISINOPRIL 10 MG TABLET 3. Mixed hyperlipidemia - ICD9: 272.2, ICD10: E78.2 - good control and - to be determined upon return of lab results - Continue current medication. - Encouraged following a low fat, low cholesterol diet. - Discussed the benefits of regular aerobic exercise and weight loss. 4. 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 Patient will continue with Santyl application. 5. Atrial fibrillation, unspecified type (HCC) - ICD9: 427.31, ICD10: I48.91 - normal sinus rhythm today, continues her alto and metoprolol as prescribed. - CONSULT TO CARDIOLOGY Get labs today, follow up with Dr. Ruvalcaba in 1 month. 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 PROGRESS Observed: 09/24/2018 Status: COMPLETED Source: [place] 3:04 PM [facility] REPOSITORY HNO ID: [id number] Author: Nalini Manning) Yohannes Service: (none) Author Type: Animal Biologist Type: Progress Notes Filed: 09/24/2018 3:04 PM Note Text: The patient has been identified by name and date of : YES I have scheduled the patient for an appointment on Visit date 09-29-18 The patient will report to the lab prior to the visit. I have pended the following lab orders: None PHMA Documentation 09/24/2018 Opts out of Population Health No Appointments Scheduled Scheduled PCP Appt DM2 with No YADIRA Record Requested Opthy Appt No DM2 with No Urine Alb Lab Ordered DM2 with No DFE Record Requested Nalini Salazar MA PROGRESS Observed: 09/24/2018 Status: COMPLETED Source: [place] 2:55 PM [facility] REPOSITORY HNO ID: [id number] Author: Nalini Manning) Yohannes Service: (none) Author Type: Animal Biologist Type: Progress Notes Filed: 09/24/2018 3:04 PM Note Text: PHMA TEAMLET DOCUMENTATION Provider Action/FYI: Patient has appointment scheduled, needs lab ordered, needs Foot and Eye exam, PSR Action/FYI: OV 09-29-18 Teamlet has identified patient by name and date of . Team: Jenae Landry MA, Brittanie Wyatt MA, Nalini Salazar MA, SAIRA Rodríguez, Dr. Payam Ruvalcaba ? Last Office Visit:Visit date not found ? Next Office Visit: Visit date not found ? Last BP/Labs: Blood Pressure: Last 3 Encounter BP Readings: Date: BP: 09/08/2018 129/69 03/12/2018 110/60 03/06/2017 129/83 Lipids: Cholesterol, Total (mg/dL) Date Value 11/14/2016 206 12/08/2015 197 HDL Cholesterol (mg/dL) Date Value 11/14/2016 51 12/08/2015 56 LDL Cholesterol (mg/dL) Date Value 11/14/2016 132 12/08/2015 111 Triglyceride (mg/dL) Date Value 11/14/2016 117 12/08/2015 150 HGB A1C: Lab Results Component Value Date HBA1C 6.0 EXT 08/13/2017 HBA1C 6.5 11/14/2016 HBA1C 5.8 12/08/2015 HBA1C 6.1 08/18/2014 TSH: TSH (uU/mL) Date Value 08/25/2012 3.290 ) Care Gap: DM - Need Urine Albumin / NOT checked in last 12 months Needs dilated eye exam - HM overdue Plan: ? Confirm PCP / Status ? Type of appointment needed: Follow-up ? Consultation Appointments: No patient outreach needed at this time ? Labs, HM and Immunization: Labs: Albumin Creatinine Urine CMP HGB A1C Lipids Colon Cancer Screening Diabetic Eye Exam Diabetic Foot Exam Nalini Salazar MA CNPTOUTREACH Observed: 09/24/2018 Status: COMPLETED Source: [place] 12:00 AM [facility] REPOSITORY Patient Outreach ([facility]) GIANA TANG ([id number]) 1950 M NFR Date Time Provider Department 09/24/18 NALINI SALAZAR ([facility]) [facility] During your visit today, we recorded the following information about you: Nalini Salazar MA 09/24/2018 3:04 PM Signed PHMA TEAMLET DOCUMENTATION Provider Action/FYI: Patient has appointment scheduled, needs lab ordered, needs Foot and Eye exam, PSR Action/FYI: OV 09-29-18 Teamlet has identified patient by name and date of . Team: Jenae Landry MA, Brittanie Wyatt MA, Nalini Salazar MA, SAIRA Rodríguez, Dr. Payam Ruvalcaba ? Last Office Visit:Visit date not found ? Next Office Visit: Visit date not found ? Last BP/Labs: Blood Pressure: Last 3 Encounter BP Readings: Date: BP: 09/08/2018 129/69 03/12/2018 110/60 03/06/2017 129/83 Lipids: Cholesterol, Total (mg/dL) Date Value 11/14/2016 206 12/08/2015 197 HDL Cholesterol (mg/dL) Date Value 11/14/2016 51 12/08/2015 56 LDL Cholesterol (mg/dL) Date Value 11/14/2016 132 12/08/2015 111 Triglyceride (mg/dL) Date Value 11/14/2016 117 12/08/2015 150 HGB A1C: Lab Results Component Value Date HBA1C 6.0 EXT 08/13/2017 HBA1C 6.5 11/14/2016 HBA1C 5.8 12/08/2015 HBA1C 6.1 08/18/2014 TSH: TSH (uU/mL) Date Value 08/25/2012 3.290 ) Care Gap: DM - Need Urine Albumin / NOT checked in last 12 months Needs dilated eye exam - HM overdue Plan: ? Confirm PCP / Status ? Type of appointment needed: Follow-up ? Consultation Appointments: No patient outreach needed at this time ? Labs, HM and Immunization: Labs: Albumin Creatinine Urine CMP HGB A1C Lipids Colon Cancer Screening Diabetic Eye Exam Diabetic Foot Exam SOL[facility] Bowman MA 09/24/2018 3:04 PM Signed The patient has been identified by name and date of : YES I have scheduled the patient for an appointment on Visit date 09-29-18 The patient will report to the lab prior to the visit. I have pended the following lab orders: None PHMA Documentation 09/24/2018 Opts out of Population Health No Appointments Scheduled Scheduled PCP Appt DM2 with No YADIRA Record Requested Opthy Appt No DM2 with No Urine Alb Lab Ordered DM2 with No DFE Record Requested Nalini Salazar MA Allergies As of Date: 09/24/2018 Noted Allergy Reaction GABAPENTIN 03/17/2018 14 - Other: See Comments Comments: Rash, hives, itching, trouble breathing, shakiness, trouble with eyesight ARTHRITIS (HOMEOPATHIC PRODUCTS) 04/30/2006 ATARAX (HYDROXYZINE HCL) 06/27/2011 16 - Unknown CEFACLOR 04/30/2006 CHOLESTEROL 04/30/2006 Comments: any cholestrol lowering medication CIPRO (CIPROFLOXACIN) 04/30/2006 CREATINE MONOHYDRATE 07/17/2007 Comments: muscle spasms CRESTOR (ROSUVASTATIN CALCIUM) 06/27/2011 16 - Unknown DARVOCET A500 (PROPOXYPHENE N-DIANE*04/30/2006 Comments: Hives, airway closes DYE- red and yellow [Other] 06/27/2011 16 - Unknown ELAVIL (AMITRIPTYLINE HCL) 08/01/2007 Comments: Increased depression INFLUENZA VACCINE TRI-SP 09-10 08/28/2012 4 - Hives 14 - Other: See Comments Comments: Throat swelling IODINE (CONTRAST DYE) 04/30/2006 LATEX 04/30/2006 4 - Hives LEVAQUIN (LEVOFLOXACIN) 06/17/2014 16 - Unknown LIDOCAINE 04/30/2006 Comments: Close airway LIPITOR (ATORVASTATIN CALCIUM) 06/27/2011 16 - Unknown LOSARTAN 03/11/2017 4 - Hives LOVASTATIN 06/27/2011 16 - Unknown muscle relaxants [Other] 04/30/2006 NIACIN 06/27/2011 5 - Intolerance PENICILLINS 04/30/2006 4 - Hives Comments: Close airway PNEUMOVAX 23 (PNEUMOCOCCAL 23-RESHMA*06/27/2011 4 - Hives Comments: Also caused severe GI upset SIMVASTATIN 09/21/2013 4 - Hives 14 - Other: See Comments Comments: Gastrointestinal/colitis symptoms SULFA (SULFONAMIDE ANTIBIOTICS) 04/30/2006 TETANUS VACCINES AND TOXOID 04/08/2007 10 - Anaphylaxis TETRACYCLINE 04/30/2006 ZITHROMAX (AZITHROMYCIN) 04/30/2006 Date Reviewed: 09/08/2018 Reviewed by: Pratima Gorman - Fully Assessed Reason for Visit: PHMA/Care Gap Outreach [[id number]] Prescriptions as of 09/24/2018 Sig: CLOPIDOGREL 75 MG TABLET Take 1 tablet by mouth once d* CHLORHEXIDINE GLUCONATE 0.12 * Use 15 mL as instructed twice* PANTOPRAZOLE 40 MG TABLET,DEL* Take 1 tablet by mouth once d* RIVAROXABAN 20 MG TABLET Take 1 tablet by mouth daily * COMPOUNDED PRESCRIPTION Drive Medical Bath Seat witho* DULOXETINE 30 MG CAPSULE,BERNARDINO* Take 1 capsule by mouth once * GABAPENTIN 300 MG CAPSULE Take 1 capsule by mouth three* ASPIRIN 81 MG TABLET,DELAYED * Take 1 tablet by mouth once d* Patient not taking: Reported on 09/08/2018 SPIRONOLACTONE 25 MG TABLET Take 1 tablet by mouth once d* Patient not taking: Reported on 09/08/2018 METOPROLOL TARTRATE 50 MG TAB* Take 1 tablet by mouth three * PRAVASTATIN 40 MG TABLET Take 1 tablet by mouth once d* MESALAMINE 800 MG TABLET,BERNARDINO* Take 1 tablet by mouth twice * Patient not taking: Reported on 09/08/2018 LISINOPRIL 20 MG TABLET Take 1 tablet by mouth twice * Patient not taking: Reported on 09/08/2018 FLUCONAZOLE 150 MG TABLET Take 1 tablet by mouth once d* Patient not taking: Reported on 03/12/2018 ERYTHROMYCIN 250 MG TABLET,DE* TAKE ONE TABLET BY MOUTH FOUR* Patient not taking: Reported on 03/12/2018 COMPOUNDED PRESCRIPTION Kiarra. Apply as directed. Di* COLLAGENASE CLOSTRIDIUM HISTO* Apply 1 application to affect* Patient not taking: Reported on 09/08/2018 METFORMIN ER 500 MG TABLET,EX* Take 1 tablet by mouth three * Patient not taking: Reported on 09/08/2018 DIAZEPAM 5 MG TABLET ACIDOPHILUS PROBIOTIC ORAL Take by mouth once daily. HYDROCHLOROTHIAZIDE 25 MG TAB* Take 1 tablet by mouth once d* Patient not taking: Reported on 03/12/2018 NITROGLYCERIN 0.4 MG SUBLINGU* Dissolve 1 tablet under the t* Patient not taking: Reported on 09/08/2018 NYSTATIN-TRIAMCINOLONE 100,00* Apply 1-2 application to affe* Patient not taking: Reported on 09/08/2018 LANCETS Patient test sugar level 3x d* BLOOD SUGAR DIAGNOSTIC STRIPS Use as instructed to check bl* * ALBUTEROL SULFATE HFA 90 MCG/* Inhale 2 Puffs as instructed * Problem List As Of Date 09/24/2018 Noted Resolved CHRONIC FATIGUE SYNDROME [R53.82] INVALID FOR* MYALGIA AND MYOSITIS NOS [[id number]] INVALID FOR* Coronary atherosclerosis [I25.10] INVALID FOR* MIXED HYPERLIPIDEMIA [E78.2] INVALID FOR* BPH W/O URINARY OBS/LUTS [N40.0] INVALID FOR* UNILAT INGUINAL HERNIA [K40.90] INVALID FOR* 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] INVALID FOR* Shortness of breath [R06.02] Esophagitis, unspecified [K20.9] INVALID FOR* Environmental allergies [Z91.09] INVALID FOR* Hypogonadism male [E29.1] INVALID FOR* Occlusion and stenosis of carotid artery withou*INVALID FOR* Essential hypertension [I10] INVALID FOR* Hua's esophagus [K22.70] 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*INVALID FOR* Sprain, low back [S33.5XXA] INVALID FOR* Encounter Status:Closed by NALINI SALAZAR on 09/24/18 PROGRESS Observed: 09/08/2018 Status: COMPLETED Source: [place] 3:41 PM CLINIC OTHER CAMPUS REPOSITORY HNO ID: [id number] Author: Pratima Gorman Service: (none) Author Type: Physician Type: Progress Notes Filed: 09/08/2018 4:08 PM Note Text: Patient Name: Giana Tang Patient : 1950 Patient Age: [age] year old CC: Patient presents with: Follow Up: lower back pain SUBJECTIVE Patient presents as a [facility] follow up of low back pain. The patient describes the pain as 6/10 throbbing, tingling, tender and achy. He has numbness, tingling, or weakness radiating into the left lower extremity to the foot. He tried gabapentin but this gave him hives so he stopped and tried Cymbalta instead which did not help. Patient states since last visit has developed BLAYNE- Cr 2.13 on 06/28/18, multiple blood clots and GI hemorrhage, now on Xarelto. Also redeveloped foot ulcer and is starting with wound care. The patient denies any bowel or bladder dysfunction. The patient denies any chest pain or chest tightness. The constitutional, musculoskeletal, and neurological review of systems was negative unless otherwise noted. The patient's past medical history, allergies, medication list, social history, and family medical history were documented, updated, and reviewed in the chart. PDMP website checked and validated. All prescriptions have been APPROPRIATELY filled. No suspicious activity was identified. 09/08/2018 by Pratima Gorman MD Nursing Notes: [facility] [place] 09/08/2018 3:33 PM Signed Review of Systems Eyes: Negative for blurred vision. Respiratory: Negative for shortness of breath.? Cardiovascular: Negative for chest pain. Negative for leg swelling. Gastrointestinal: Negative for constipation, diarrhea, nausea?and vomiting. Genitourinary: Negative for dysuria. Skin: Negative for itching. Neurological: Negative for headaches. Negative for dizziness, tingling?and weakness. Endo/Heme/Allergies: Negative for bruising/bleeding easily. Psychiatric/Behavioral: Positive for depression and negative for suicidal ideas. ROS entered by: Dominique Howe MA No question data found. ALLERGIES Allergen Reactions - Gabapentin Other: See Comments Rash, hives, itching, trouble breathing, shakiness, trouble with eyesight - Arthritis [Homeopat* - Atarax [Hydroxyzine* Unknown - Cefaclor - Cholesterol any cholestrol lowering medication - Cipro [Ciprofloxaci* - Creatine Monohydrate muscle spasms - Crestor [Rosuvastat* Unknown - Darvocet A500 [Prop* Hives, airway closes - Dye- Red And Yellow* Unknown - Elavil [Amitriptyli* Increased depression - Influenza Vaccine T* Hives, Other: See Comments Throat swelling - Iodine [Contrast Dy* - Latex Hives - Levaquin [Levofloxa* Unknown - Lidocaine Close airway - Lipitor [Atorvastat* Unknown - Losartan Hives - Lovastatin Unknown - Muscle Relaxants [O* - Niacin Intolerance - Penicillins Hives Close airway - Pneumovax 23 [Pneum* Hives Also caused severe GI upset - Simvastatin Hives, Other: See Comments Gastrointestinal/colitis symptoms - Sulfa (Sulfonamide * - Tetanus Vaccines An* Anaphylaxis - Tetracycline - Zithromax [Azithrom* Current Outpatient Prescriptions: Chlorhexidine Gluconate (PERIDEX) 0.12 % solution Use 15 mL as instructed twice daily. Disp: 473 mL Rfl: 11 rivaroxaban (XARELTO) 20 mg tablet Take 1 tablet by mouth daily with dinner. Disp: 30 tablet Rfl: COMPOUNDED PRESCRIPTION Drive Medical Bath Seat without Back.Disp 1 each Disp: 1 Each Rfl: 0 clopidogrel (PLAVIX) 75 mg tablet Take 1 tablet by mouth once daily. Disp: 90 tablet Rfl: 3 metoprolol tartrate, short acting, (LOPRESSOR) 50 mg tablet Take 1 tablet by mouth three times daily. Disp: 270 tablet Rfl: 3 pravastatin (PRAVACHOL) 40 mg tablet Take 1 tablet by mouth once daily. Disp: 90 tablet Rfl: 3 COMPOUNDED PRESCRIPTION Kiarra. Apply as directed. Diabetic Foot Ulcer, Left foot. 1.6 cm x 1.3 cm x 0.1 cm. Disp: 1 Package Rfl: 11 L. ACIDOPHILUS/PECTIN, CITRUS (ACIDOPHILUS PROBIOTIC ORAL) Take by mouth once daily. Disp: Rfl: Lancets (ONE TOUCH ULTRASOFT LANCETS) lancets Patient test sugar level 3x daily. Disp: 300 Each Rfl: 3 blood sugar diagnostic (ONE TOUCH ULTRA TEST) test strip Use as instructed to check blood sugars Disp: 300 Strip Rfl: 3 albuterol HFA (PROAIR HFA) 90 mcg/Actuation INHALATION inhaler Inhale 2 Puffs as instructed every 6 hours as needed. Disp: 1 Inhaler Rfl: [address] (PROTONIX) 40 mg tablet Take 1 tablet by mouth once daily. Disp: Rfl: DULoxetine (CYMBALTA) 30 mg capsule Take 1 capsule by mouth once daily. Disp: 30 capsule Rfl: 2 gabapentin (NEURONTIN) 300 mg capsule Take 1 capsule by mouth three times daily for 90 days. Disp: 90 capsule Rfl: 2 aspirin, enteric coated (ASPIRIN, ENTERIC COATED) 81 mg EC tablet Take 1 tablet by mouth once daily. (Patient not taking: Reported on 09/08/2018 ) Disp: 90 tablet Rfl: 3 spironolactone (ALDACTONE) 25 mg tablet Take 1 tablet by mouth once daily. (Patient not taking: Reported on 09/08/2018 ) Disp: 90 tablet Rfl: 3 mesalamine (ASACOL HD) 800 mg TbEC EC tablet Take 1 tablet by mouth twice daily. (Patient not taking: Reported on 09/08/2018 ) Disp: 180 tablet Rfl: 3 lisinopril (PRINIVIL) 20 mg tablet Take 1 tablet by mouth twice daily. (Patient not taking: Reported on 09/08/2018 ) Disp: 180 tablet Rfl: 3 fluconazole (DIFLUCAN) 150 mg tablet Take 1 tablet by mouth once daily. (Patient not taking: Reported on 03/12/2018 ) Disp: 10 tablet Rfl: 0 erythromycin (SHAE-TAB) 250 mg EC tablet TAKE ONE TABLET BY MOUTH FOUR TIMES DAILY. TAKE THIS FIRST, THEN TAKE DIFLUCAN (Patient not taking: Reported on 03/12/2018 ) Disp: 40 tablet Rfl: 0 collagenase (SANTYL) ointment Apply 1 application to affected area once daily. APPLY TO AFFECTED AREA (Patient not taking: Reported on 09/08/2018 ) Disp: 60 g Rfl: 2 metFORMIN ER (GLUCOPHAGE XR) 500 mg 24 hr tablet Take 1 tablet by mouth three times daily with meals. (Patient not taking: Reported on 09/08/2018 ) Disp: 90 tablet Rfl: 11 diazePAM (VALIUM) 5 mg tablet Disp: Rfl: hydrochlorothiazide (HYDRODIURIL, ESIDRIX) 25 mg tablet Take 1 tablet by mouth once daily. (Patient not taking: Reported on 03/12/2018 ) Disp: 90 tablet Rfl: 3 nitroglycerin sublingual 0.4 mg SL tablet Dissolve 1 tablet under the tongue every 5 minutes as needed for Chest Pain. (Patient not taking: Reported on 09/08/2018 ) Disp: 1 Bottle of 25 Rfl: 5 nystatin-triamcinolone cream Apply 1-2 application to affected area three times daily. (Patient not taking: Reported on 09/08/2018 ) Disp: 60 g Rfl: 3 No current facility-administered medications for this visit. ACTIVE PROBLEM LIST Chronic Fatigue Syndrome Myalgia and Myositis, Unspecified Coronary Atherosclerosis Mixed Hyperlipidemia BPH W/O URINARY OBS/LUTS Inguinal Hernia Without Mention of Obstruction Or Gangrene, Unilateral Or Unspecified, (Not Specified As Recurrent) Scrotal Varices Shortness of Breath Esophagitis, Unspecified Environmental Allergies Hypogonadism Male Occlusion and Stenosis of Carotid Artery Without Mention of Cerebral Infarction Essential Hypertension Hua's Esophagus Degeneration of Lumbar Intervertebral Disc Sprain, Low Back Social History Marital status: Unknown Spouse name: Samanta Years of education: Number of children: 1 Occupational History Occupation Employer Comment retired Social History Main Topics Smoking status: Former Smoker Packs/day: 2.00 Years: 0.00 Types: Cigarettes Quit date: 06/04/2003 Smokeless tobacco: Never Used Comment: 2003 Alcohol use: No Drug use: No Other Topics Concern Caffeine Concern No Special Diet No Exercise No Family History Problem Relation Age of Onset - Emphysema Mother - Osteoporosis Mother - Heart Mother - Heart Father - Diabetes Brother - Heart Brother - Obesity Brother OBJECTIVE Vitals: BP 129/69 Pulse (!) 51 Resp 16 Ht 182.9 cm (6') Wt 97.1 kg (214 lb) BMI 29.02 kg/m? General: Alert, cooperative, well appearing, and in no apparent distress. Pale Musculoskeletal: The patient's gait is normal with a cane Back: Inspection of the back demonstrates there is no obvious deformity or misalignment. There is bony tenderness along the lumbar vertebrae, none along the sacroiliac joints. There is bilateral L>R paraspinal muscle tenderness. Range of motion testing demonstrates full flexion, extension, side bending and rotation of the back. Pain with extension Strength is 5/5 in the lower extremity bilaterally. Sensation is intact throughout bilateral lower extremities. There is a negative straight leg raise and femoral stretch test. The piriformis has normal flexibility and is non-tender. Skin: The skin is without jaundice. It is intact without pathologic lesions, erythema, vesicles, discharge or rash. Palpitation of the skin is normal without induration, subcutaneous nodules or tightening. Extremities: This is no clubbing, cyanosis or edema. Peripheral pulses are 2+. Return in about 6 months (around 03/08/2019). ASSESSMENT/PLAN: We discussed the natural history of this condition, differential diagnoses, and treatment options. Guidelines for activity were given. We discussed options for treatment including conservative care, medications with side effects and injections with risks and benefits. Due to his BLAYNE and now Xarelto use medications for pain are limited, we discussed that we could restart his opioid medications to help relieve his pain, but at this time he does not want to restart his pain medications and states he will follow up in the spring and will call if his pain gets worse in the meantime. 1. Sacrum sprain, initial encounter - ICD9: 847.3, ICD10: S33.8XXA (primary diagnosis) - [facility] - OXYCODONE 5 MG TABLET 2. Displacement of lumbar intervertebral disc without myelopathy - ICD9: 722.10, ICD10: M51.26 - [facility] SCRE[facility] - OXYCODONE 5 MG TABLET Pratima Gorman MD CNOV Observed: 09/08/2018 Status: COMPLETED Source: [place] 3:30 PM CLINIC OTHER CAMPUS REPOSITORY Office Visit ([facility]) GIANA TANG ([id number]) 1950 M NFR Date Time Provider Department 09/08/18 3:30 PM PRATIMA GORMAN During your visit today, we recorded the following information about you: Pulse Respiration Blood pressure Weight 51/minute 16/minute 129/69 97.1 kg Height 1.829 m Jerrod CazaresJosie Howe 09/08/2018 3:33 PM Signed Review of Systems Eyes: Negative for blurred vision. Respiratory: Negative for shortness of breath.? Cardiovascular: Negative for chest pain. Negative for leg swelling. Gastrointestinal: Negative for constipation, diarrhea, nausea?and vomiting. Genitourinary: Negative for dysuria. Skin: Negative for itching. Neurological: Negative for headaches. Negative for dizziness, tingling?and weakness. Endo/Heme/Allergies: Negative for bruising/bleeding easily. Psychiatric/Behavioral: Positive for depression and negative for suicidal ideas. ROS entered by: SOLANGE Schwab MD 09/08/2018 4:08 PM Signed Patient Name: Giana Tang Patient : 1950 Patient Age: [age] year old CC: Patient presents with: Follow Up: lower back pain SUBJECTIVE Patient presents as a [facility] follow up of low back pain. The patient describes the pain as 6/10 throbbing, tingling, tender and achy. He has numbness, tingling, or weakness radiating into the left lower extremity to the foot. He tried gabapentin but this gave him hives so he stopped and tried Cymbalta instead which did not help. Patient states since last visit has developed BLAYNE- Cr 2.13 on 06/28/18, multiple blood clots and GI hemorrhage, now on Xarelto. Also redeveloped foot ulcer and is starting with wound care. The patient denies any bowel or bladder dysfunction. The patient denies any chest pain or chest tightness. The constitutional, musculoskeletal, and neurological review of systems was negative unless otherwise noted. The patient's past medical history, allergies, medication list, social history, and family medical history were documented, updated, and reviewed in the chart. PDMP website checked and validated. All prescriptions have been APPROPRIATELY filled. No suspicious activity was identified. 09/08/2018 by Pratima Gorman MD Nursing Notes: Jerrod Howe 09/08/2018 3:33 PM Signed Review of Systems Eyes: Negative for blurred vision. Respiratory: Negative for shortness of breath.? Cardiovascular: Negative for chest pain. Negative for leg swelling. Gastrointestinal: Negative for constipation, diarrhea, nausea?and vomiting. Genitourinary: Negative for dysuria. Skin: Negative for itching. Neurological: Negative for headaches. Negative for dizziness, tingling?and weakness. Endo/Heme/Allergies: Negative for bruising/bleeding easily. Psychiatric/Behavioral: Positive for depression and negative for suicidal ideas. ROS entered by: Dominique Howe MA No question data found. ALLERGIES Allergen Reactions - Gabapentin Other: See Comments Rash, hives, itching, trouble breathing, shakiness, trouble with eyesight - Arthritis [Homeopat* - Atarax [Hydroxyzine* Unknown - Cefaclor - Cholesterol any cholestrol lowering medication - Cipro [Ciprofloxaci* - Creatine Monohydrate muscle spasms - Crestor [Rosuvastat* Unknown - Darvocet A500 [Prop* Hives, airway closes - Dye- Red And Yellow* Unknown - Elavil [Amitriptyli* Increased depression - Influenza Vaccine T* Hives, Other: See Comments Throat swelling - Iodine [Contrast Dy* - Latex Hives - Levaquin [Levofloxa* Unknown - Lidocaine Close airway - Lipitor [Atorvastat* Unknown - Losartan Hives - Lovastatin Unknown - Muscle Relaxants [O* - Niacin Intolerance - Penicillins Hives Close airway - Pneumovax 23 [Pneum* Hives Also caused severe GI upset - Simvastatin Hives, Other: See Comments Gastrointestinal/colitis symptoms - Sulfa (Sulfonamide * - Tetanus Vaccines An* Anaphylaxis - Tetracycline - Zithromax [Azithrom* Current Outpatient Prescriptions: Chlorhexidine Gluconate (PERIDEX) 0.12 % solution Use 15 mL as instructed twice daily. Disp: 473 mL Rfl: 11 rivaroxaban (XARELTO) 20 mg tablet Take 1 tablet by mouth daily with dinner. Disp: 30 tablet Rfl: COMPOUNDED PRESCRIPTION Drive Medical Bath Seat without Back.Disp 1 each Disp: 1 Each Rfl: 0 clopidogrel (PLAVIX) 75 mg tablet Take 1 tablet by mouth once daily. Disp: 90 tablet Rfl: 3 metoprolol tartrate, short acting, (LOPRESSOR) 50 mg tablet Take 1 tablet by mouth three times daily. Disp: 270 tablet Rfl: 3 pravastatin (PRAVACHOL) 40 mg tablet Take 1 tablet by mouth once daily. Disp: 90 tablet Rfl: 3 COMPOUNDED PRESCRIPTION Kiarra. Apply as directed. Diabetic Foot Ulcer, Left foot. 1.6 cm x 1.3 cm x 0.1 cm. Disp: 1 Package Rfl: 11 L. ACIDOPHILUS/PECTIN, CITRUS (ACIDOPHILUS PROBIOTIC ORAL) Take by mouth once daily. Disp: Rfl: Lancets (ONE TOUCH ULTRASOFT LANCETS) lancets Patient test sugar level 3x daily. Disp: 300 Each Rfl: 3 blood sugar diagnostic (ONE TOUCH ULTRA TEST) test strip Use as instructed to check blood sugars Disp: 300 Strip Rfl: 3 albuterol HFA (PROAIR HFA) 90 mcg/Actuation INHALATION inhaler Inhale 2 Puffs as instructed every 6 hours as needed. Disp: 1 Inhaler Rfl: [address] (PROTONIX) 40 mg tablet Take 1 tablet by mouth once daily. Disp: Rfl: DULoxetine (CYMBALTA) 30 mg capsule Take 1 capsule by mouth once daily. Disp: 30 capsule Rfl: 2 gabapentin (NEURONTIN) 300 mg capsule Take 1 capsule by mouth three times daily for 90 days. Disp: 90 capsule Rfl: 2 aspirin, enteric coated (ASPIRIN, ENTERIC COATED) 81 mg EC tablet Take 1 tablet by mouth once daily. (Patient not taking: Reported on 09/08/2018 ) Disp: 90 tablet Rfl: 3 spironolactone (ALDACTONE) 25 mg tablet Take 1 tablet by mouth once daily. (Patient not taking: Reported on 09/08/2018 ) Disp: 90 tablet Rfl: 3 mesalamine (ASACOL HD) 800 mg TbEC EC tablet Take 1 tablet by mouth twice daily. (Patient not taking: Reported on 09/08/2018 ) Disp: 180 tablet Rfl: 3 lisinopril (PRINIVIL) 20 mg tablet Take 1 tablet by mouth twice daily. (Patient not taking: Reported on 09/08/2018 ) Disp: 180 tablet Rfl: 3 fluconazole (DIFLUCAN) 150 mg tablet Take 1 tablet by mouth once daily. (Patient not taking: Reported on 03/12/2018 ) Disp: 10 tablet Rfl: 0 erythromycin (SHAE-TAB) 250 mg EC tablet TAKE ONE TABLET BY MOUTH FOUR TIMES DAILY. TAKE THIS FIRST, THEN TAKE DIFLUCAN (Patient not taking: Reported on 03/12/2018 ) Disp: 40 tablet Rfl: 0 collagenase (SANTYL) ointment Apply 1 application to affected area once daily. APPLY TO AFFECTED AREA (Patient not taking: Reported on 09/08/2018 ) Disp: 60 g Rfl: 2 metFORMIN ER (GLUCOPHAGE XR) 500 mg 24 hr tablet Take 1 tablet by mouth three times daily with meals. (Patient not taking: Reported on 09/08/2018 ) Disp: 90 tablet Rfl: 11 diazePAM (VALIUM) 5 mg tablet Disp: Rfl: hydrochlorothiazide (HYDRODIURIL, ESIDRIX) 25 mg tablet Take 1 tablet by mouth once daily. (Patient not taking: Reported on 03/12/2018 ) Disp: 90 tablet Rfl: 3 nitroglycerin sublingual 0.4 mg SL tablet Dissolve 1 tablet under the tongue every 5 minutes as needed for Chest Pain. (Patient not taking: Reported on 09/08/2018 ) Disp: 1 Bottle of 25 Rfl: 5 nystatin-triamcinolone cream Apply 1-2 application to affected area three times daily. (Patient not taking: Reported on 09/08/2018 ) Disp: 60 g Rfl: 3 No current facility-administered medications for this visit. ACTIVE PROBLEM LIST Chronic Fatigue Syndrome Myalgia and Myositis, Unspecified Coronary Atherosclerosis Mixed Hyperlipidemia BPH W/O URINARY OBS/LUTS Inguinal Hernia Without Mention of Obstruction Or Gangrene, Unilateral Or Unspecified, (Not Specified As Recurrent) Scrotal Varices Shortness of Breath Esophagitis, Unspecified Environmental Allergies Hypogonadism Male Occlusion and Stenosis of Carotid Artery Without Mention of Cerebral Infarction Essential Hypertension Hua's Esophagus Degeneration of Lumbar Intervertebral Disc Sprain, Low Back Social History Marital status: Unknown Spouse name: Samanta Years of education: Number of children: 1 Occupational History Occupation Employer Comment retired Social History Main Topics Smoking status: Former Smoker Packs/day: 2.00 Years: 0.00 Types: Cigarettes Quit date: 06/04/2003 Smokeless tobacco: Never Used Comment: 2003 Alcohol use: No Drug use: No Other Topics Concern Caffeine Concern No Special Diet No Exercise No Family History Problem Relation Age of Onset - Emphysema Mother - Osteoporosis Mother - Heart Mother - Heart Father - Diabetes Brother - Heart Brother - Obesity Brother OBJECTIVE Vitals: BP 129/69 Pulse (!) 51 Resp 16 Ht 182.9 cm (6') Wt 97.1 kg (214 lb) BMI 29.02 kg/m? General: Alert, cooperative, well appearing, and in no apparent distress. Pale Musculoskeletal: The patient's gait is normal with a cane Back: Inspection of the back demonstrates there is no obvious deformity or misalignment. There is bony tenderness along the lumbar vertebrae, none along the sacroiliac joints. There is bilateral L>R paraspinal muscle tenderness. Range of motion testing demonstrates full flexion, extension, side bending and rotation of the back. Pain with extension Strength is 5/5 in the lower extremity bilaterally. Sensation is intact throughout bilateral lower extremities. There is a negative straight leg raise and femoral stretch test. The piriformis has normal flexibility and is non-tender. Skin: The skin is without jaundice. It is intact without pathologic lesions, erythema, vesicles, discharge or rash. Palpitation of the skin is normal without induration, subcutaneous nodules or tightening. Extremities: This is no clubbing, cyanosis or edema. Peripheral pulses are 2+. Return in about 6 months (around 03/08/2019). ASSESSMENT/PLAN: We discussed the natural history of this condition, differential diagnoses, and treatment options. Guidelines for activity were given. We discussed options for treatment including conservative care, medications with side effects and injections with risks and benefits. Due to his BLAYNE and now Xarelto use medications for pain are limited, we discussed that we could restart his opioid medications to help relieve his pain, but at this time he does not want to restart his pain medications and states he will follow up in the spring and will call if his pain gets worse in the meantime. 1. Sacrum sprain, initial encounter - ICD9: 847.3, ICD10: S33.8XXA (primary diagnosis) - [facility] - OXYCODONE 5 MG TABLET 2. Displacement of lumbar intervertebral disc without myelopathy - ICD9: 722.10, ICD10: M51.26 - [facility] - OXYCODONE 5 MG TABLET Pratima Gorman MD Referring Provider: SELF [200] Allergies As of Date: 09/08/2018 Noted Allergy Reaction GABAPENTIN 03/17/2018 14 - Other: See Comments Comments: Rash, hives, itching, trouble breathing, shakiness, trouble with eyesight ARTHRITIS (HOMEOPATHIC PRODUCTS) 04/30/2006 ATARAX (HYDROXYZINE HCL) 06/27/2011 16 - Unknown CEFACLOR 04/30/2006 CHOLESTEROL 04/30/2006 Comments: any cholestrol lowering medication CIPRO (CIPROFLOXACIN) 04/30/2006 CREATINE MONOHYDRATE 07/17/2007 Comments: muscle spasms CRESTOR (ROSUVASTATIN CALCIUM) 06/27/2011 16 - Unknown DARVOCET A500 (PROPOXYPHENE N-DIANE*04/30/2006 Comments: Hives, airway closes DYE- red and yellow [Other] 06/27/2011 16 - Unknown ELAVIL (AMITRIPTYLINE HCL) 08/01/2007 Comments: Increased depression INFLUENZA VACCINE TRI-SP -08/28/2012 4 - Hives 14 - Other: See Comments Comments: Throat swelling IODINE (CONTRAST DYE) 04/30/2006 LATEX 04/30/2006 4 - Hives LEVAQUIN (LEVOFLOXACIN) 06/17/2014 16 - Unknown LIDOCAINE 04/30/2006 Comments: Close airway LIPITOR (ATORVASTATIN CALCIUM) 06/27/2011 16 - Unknown LOSARTAN 03/11/2017 4 - Hives LOVASTATIN 06/27/2011 16 - Unknown muscle relaxants [Other] 04/30/2006 NIACIN 06/27/2011 5 - Intolerance PENICILLINS 04/30/2006 4 - Hives Comments: Close airway PNEUMOVAX 23 (PNEUMOCOCCAL 23-RESHMA*06/27/2011 4 - Hives Comments: Also caused severe GI upset SIMVASTATIN 09/21/2013 4 - Hives 14 - Other: See Comments Comments: Gastrointestinal/colitis symptoms SULFA (SULFONAMIDE ANTIBIOTICS) 04/30/2006 TETANUS VACCINES AND TOXOID 04/08/2007 10 - Anaphylaxis TETRACYCLINE 04/30/2006 ZITHROMAX (AZITHROMYCIN) 04/30/2006 Date Reviewed: 09/08/2018 Reviewed by: Pratima Gorman - Fully Assessed Reason for Visit: Follow Up [171] Cmt: lower back pain Primary Visit Diagnosis:Sacrum sprain, initial encounter [S33.8XXA] Other Visit Diagnosis:Displacement of lumbar intervertebral disc without myelopathy [M51.26] Prescriptions as of 09/08/2018 Sig: CHLORHEXIDINE GLUCONATE 0.12 * Use 15 mL as instructed twice* RIVAROXABAN 20 MG TABLET Take 1 tablet by mouth daily * COMPOUNDED PRESCRIPTION Drive Medical Bath Seat witho* CLOPIDOGREL 75 MG TABLET Take 1 tablet by mouth once d* METOPROLOL TARTRATE 50 MG TAB* Take 1 tablet by mouth three * PRAVASTATIN 40 MG TABLET Take 1 tablet by mouth once d* COMPOUNDED PRESCRIPTION Kiarra. Apply as directed. Di* ACIDOPHILUS PROBIOTIC ORAL Take by mouth once daily. LANCETS Patient test sugar level 3x d* BLOOD SUGAR DIAGNOSTIC STRIPS Use as instructed to check bl* * ALBUTEROL SULFATE HFA 90 MCG/* Inhale 2 Puffs as instructed * PANTOPRAZOLE 40 MG TABLET,DEL* Take 1 tablet by mouth once d* DULOXETINE 30 MG CAPSULE,BERNARDINO* Take 1 capsule by mouth once * GABAPENTIN 300 MG CAPSULE Take 1 capsule by mouth three* ASPIRIN 81 MG TABLET,DELAYED * Take 1 tablet by mouth once d* Patient not taking: Reported on 09/08/2018 SPIRONOLACTONE 25 MG TABLET Take 1 tablet by mouth once d* Patient not taking: Reported on 09/08/2018 MESALAMINE 800 MG TABLET,BERNARDINO* Take 1 tablet by mouth twice * Patient not taking: Reported on 09/08/2018 LISINOPRIL 20 MG TABLET Take 1 tablet by mouth twice * Patient not taking: Reported on 09/08/2018 FLUCONAZOLE 150 MG TABLET Take 1 tablet by mouth once d* Patient not taking: Reported on 03/12/2018 ERYTHROMYCIN 250 MG TABLET,DE* TAKE ONE TABLET BY MOUTH FOUR* Patient not taking: Reported on 03/12/2018 COLLAGENASE CLOSTRIDIUM HISTO* Apply 1 application to affect* Patient not taking: Reported on 09/08/2018 METFORMIN ER 500 MG TABLET,EX* Take 1 tablet by mouth three * Patient not taking: Reported on 09/08/2018 DIAZEPAM 5 MG TABLET HYDROCHLOROTHIAZIDE 25 MG TAB* Take 1 tablet by mouth once d* Patient not taking: Reported on 03/12/2018 NITROGLYCERIN 0.4 MG SUBLINGU* Dissolve 1 tablet under the t* Patient not taking: Reported on 09/08/2018 NYSTATIN-TRIAMCINOLONE 100,00* Apply 1-2 application to affe* Patient not taking: Reported on 09/08/2018 Problem List As Of Date 09/08/2018 Noted Resolved CHRONIC FATIGUE SYNDROME [R53.82] INVALID FOR* MYALGIA AND MYOSITIS NOS [[id number]] INVALID FOR* Coronary atherosclerosis [I25.10] INVALID FOR* MIXED HYPERLIPIDEMIA [E78.2] INVALID FOR* BPH W/O URINARY OBS/LUTS [N40.0] INVALID FOR* UNILAT INGUINAL HERNIA [K40.90] INVALID FOR* 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] INVALID FOR* Shortness of breath [R06.02] Esophagitis, unspecified [K20.9] INVALID FOR* Environmental allergies [Z91.09] INVALID FOR* Hypogonadism male [E29.1] INVALID FOR* Occlusion and stenosis of carotid artery withou*INVALID FOR* Essential hypertension [I10] INVALID FOR* Hua's esophagus [K22.70] 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*INVALID FOR* Sprain, low back [S33.5XXA] INVALID FOR* Visit Notes: >> Jerrod Walker Sep 08, 2018 3:33 PM Status: Signed Review of Systems Eyes: Negative for blurred vision. Respiratory: Negative for shortness of breath.? Cardiovascular: Negative for chest pain. Negative for leg swelling. Gastrointestinal: Negative for constipation, diarrhea, nausea?and vomiting. Genitourinary: Negative for dysuria. Skin: Negative for itching. Neurological: Negative for headaches. Negative for dizziness, tingling?and weakness. Endo/Heme/Allergies: Negative for bruising/bleeding easily. Psychiatric/Behavioral: Positive for depression and negative for suicidal ideas. ROS entered by: Dominique Howe MA Prescriptions ordered this encounter Disp Refills Start End OXYCODONE 5 MG TABLET 90 t* 0 09/08/2018 09/08/2018 Class: Print RX Route: ORAL Sig: Take 1 tablet by mouth every 8 hours as needed for Pain for up to 30 days. Medications Discontinued During This Encounter HYDROcodone-Acetaminophen (NORCO) 10* 12/14/2016 09/08/2018 Class: Historical Med Sig: Disc: Reason for discontinue is not on file. HYDROcodone-Acetaminophen (NORCO) 10* 120 * 0 03/04/2017 09/08/2018 Class: Print RX Route: ORAL Sig: Take 1 tablet by mouth every 6 hours as needed. Patient not taking: Reported on 09/08/2018 Disc: Reason for discontinue is not on file. HYDROcodone-Acetaminophen (NORCO) 10* 120 * 0 07/15/2017 09/08/2018 Class: Print RX Cmt: Chronic pain Route: ORAL Sig: Take 1 tablet by mouth every 6 hours as needed. Patient not taking: Reported on 03/12/2018 Disc: Reason for discontinue is not on file. HYDROcodone-Acetaminophen (NORCO) 10* 120 * 0 07/15/2017 09/08/2018 Class: Print RX Cmt: Fill on 09/14/17 Chronic pain Route: ORAL Sig: Take 1 tablet by mouth every 6 hours as needed. Patient not taking: Reported on 03/12/2018 Disc: Reason for discontinue is not on file. HYDROcodone-Acetaminophen (NORCO) 10* 120 * 0 07/15/2017 09/08/2018 Class: Print RX Cmt: Chronic pain Fill on 11/14/16 Route: ORAL Sig: Take 1 tablet by mouth every 6 hours as needed. Patient not taking: Reported on 09/08/2018 Disc: Reason for discontinue is not on file. oxyCODONE IR (ROXICODONE) 5 mg immed* 90 t* 0 09/08/2018 09/08/2018 Class: Print RX Route: ORAL Sig: Take 1 tablet by mouth every 8 hours as needed for Pain for up to 30 days. Disc: Reason for discontinue is not on file. Disposition: Return in about 6 months (around 03/08/2019). Follow-up and Disposition History Recorded Encounter Status:Closed by PRATIMA GORMAN MD on 09/08/18 PROGRESS Observed: 07/15/2018 Status: COMPLETED Source: [place] 11:07 AM [facility] REPOSITORY HNO ID: [id number] Author: Chapo CazaresRn) Service: (none) Author Type: Registered Nurse Type: Progress Notes Filed: 07/15/2018 11:11 AM Note Text: PRIMARY CARE COORDINATION QUICK NOTE Provider Action/FYI Call to Pt left a notified lab work was ordered. Patient identified by name and date . Hiram Cowan RN July 15, 2018 11:08 AM PROGRESS Observed: 07/14/2018 Status: COMPLETED Source: [place] 4:49 PM [facility] REPOSITORY HNO ID: [id number] Author: Payam Ruvalcaba Service: (none) Author Type: Physician Type: Progress Notes Filed: 07/15/2018 11:11 AM Note Text: Noted; labs ordered Payam Ruvalcaba MD PROGRESS Observed: 07/14/2018 Status: COMPLETED Source: [place] 2:11 PM [facility] REPOSITORY HNO ID: [id number] Author: Chapo Grubbs) Service: (none) Author Type: Registered Nurse Type: Progress Notes Filed: 07/15/2018 11:11 AM Note Text: PRIMARY CARE COORDINATION FOLLOW-UP NOTE Provider Action/FYI [facility] D/C 07/02/18 Gib, Afib, BLAYNE, Syncope 1. Call from Pt who reports bilateral groin to knee pain, has weakness is using 2 canes to walk, reports declined [facility] Physical Therapy from [facility] D/C 07/02/18, reports Hx PVD with stents and pt states has a left foot ulcer present 2. Pt denies CP, Sob or edema, or other unusual symptoms 3. Pt reports Hx : Cardiac stents taking Plavix, denies bruising or bleeding from any site, also taking Xarelto 15 mg po Bid ordered by [facility] D/C 07/02/18. Pt reports upper extremity DVT's, Pt previously followed by Dr. Palafox 4. Pt denies burning in his stomach, occasional pain due to ulcerative Colitis, states is allergic to Protonix and therefore not taking 5. Temp Dialysis catheter placement during [facility] Adm, received Dialysis x1, Pt reports voiding every hour 6. Pt reports checks BS 2x daily, BS range 82-93, denies Hypoglycemia 7. Appt with Sourav Faria CNP 07/16/18 Labs Pended for review Patient identified by name and date of . YES Spoke to patient Concerns: Bilateral Leg pain/groin to knee's Thank You, Signature Hiram Cowan RN July 14, 2018 CNPTOUTREACH Observed: 07/14/2018 Status: COMPLETED Source: [place] 12:00 AM [facility] REPOSITORY Patient Outreach (FAMPWS) GIANA TANG ([id number]) 1950 M NFR Date Time Provider Department 07/14/18 CHAPO GRUBBS) FAMPWS During your visit today, we recorded the following information about you: Hiram Cowan RN 07/15/2018 11:11 AM Signed PRIMARY CARE COORDINATION FOLLOW-UP NOTE Provider Action/FYI [facility] D/C 07/02/18 Gib, Afib, BLAYNE, Syncope 1. Call from Pt who reports bilateral groin to knee pain, has weakness is using 2 canes to walk, reports declined [facility] Physical Therapy from [facility] D/C 07/02/18, reports Hx PVD with stents and pt states has a left foot ulcer present 2. Pt denies CP, Sob or edema, or other unusual symptoms 3. Pt reports Hx : Cardiac stents taking Plavix, denies bruising or bleeding from any site, also taking Xarelto 15 mg po Bid ordered by [facility] D/C 07/02/18. Pt reports upper extremity DVT's, Pt previously followed by Dr. Palafox 4. Pt denies burning in his stomach, occasional pain due to ulcerative Colitis, states is allergic to Protonix and therefore not taking 5. Temp Dialysis catheter placement during [facility] Adm, received Dialysis x1, Pt reports voiding every hour 6. Pt reports checks BS 2x daily, BS range 82-93, denies Hypoglycemia 7. Appt with Sourav Faria CNP 07/16/18 Labs Pended for review Patient identified by name and date of . YES Spoke to patient Concerns: Bilateral Leg pain/groin to knee's Thank You, Signature Hiram Cowan RN July 14, 2018 Payam Ruvalcaba MD 07/15/2018 11:11 AM Signed Noted; labs ordered MD Hiram Anderson RN 07/15/2018 11:11 AM Signed PRIMARY CARE COORDINATION QUICK NOTE Provider Action/FYI Call to Pt left a vm notified lab work was ordered. Patient identified by name and date . Hiram Cowan RN July 15, 2018 11:08 AM Allergies As of Date: 07/14/2018 Noted Allergy Reaction GABAPENTIN 03/17/2018 14 - Other: See Comments Comments: Rash, hives, itching, trouble breathing, shakiness, trouble with eyesight ARTHRITIS (HOMEOPATHIC PRODUCTS) 04/30/2006 ATARAX (HYDROXYZINE HCL) 06/27/2011 16 - Unknown CEFACLOR 04/30/2006 CHOLESTEROL 04/30/2006 Comments: any cholestrol lowering medication CIPRO (CIPROFLOXACIN) 04/30/2006 CREATINE MONOHYDRATE 07/17/2007 Comments: muscle spasms CRESTOR (ROSUVASTATIN CALCIUM) 06/27/2011 16 - Unknown DARVOCET A500 (PROPOXYPHENE N-DIANE*04/30/2006 Comments: Hives, airway closes DYE- red and yellow [Other] 06/27/2011 16 - Unknown ELAVIL (AMITRIPTYLINE HCL) 08/01/2007 Comments: Increased depression INFLUENZA VACCINE TRI-SP 09-10 08/28/2012 4 - Hives 14 - Other: See Comments Comments: Throat swelling IODINE (CONTRAST DYE) 04/30/2006 LATEX 04/30/2006 4 - Hives LEVAQUIN (LEVOFLOXACIN) 06/17/2014 16 - Unknown LIDOCAINE 04/30/2006 Comments: Close airway LIPITOR (ATORVASTATIN CALCIUM) 06/27/2011 16 - Unknown LOSARTAN 03/11/2017 4 - Hives LOVASTATIN 06/27/2011 16 - Unknown muscle relaxants [Other] 04/30/2006 NIACIN 06/27/2011 5 - Intolerance PENICILLINS 04/30/2006 4 - Hives Comments: Close airway PNEUMOVAX 23 (PNEUMOCOCCAL 23-RESHMA*06/27/2011 4 - Hives Comments: Also caused severe GI upset SIMVASTATIN 09/21/2013 4 - Hives 14 - Other: See Comments Comments: Gastrointestinal/colitis symptoms SULFA (SULFONAMIDE ANTIBIOTICS) 04/30/2006 TETANUS VACCINES AND TOXOID 04/08/2007 10 - Anaphylaxis TETRACYCLINE 04/30/2006 ZITHROMAX (AZITHROMYCIN) 04/30/2006 Date Reviewed: 03/12/2018 Reviewed by: Pratima Gorman - Fully Assessed Reason for Visit: [facility] Follow Up [3610] Cmt: [facility] D/C 07/02/18 Dx GIB, AFIB, BLAYNE Reason For Visit History Recorded Primary Visit Diagnosis:Type 2 diabetes mellitus with complication, unspecified whether fpc insulin use (HCC) [E11.8] Order(s):LIPID PANEL BASIC [SQLIPB] Order #: [id number] FUTURE HGB A1C [TTYQR7M] Order #: [id number] FUTURE COMP METABOLIC PANEL [SQCMP] Order #: [id number] FUTURE CBC + DIFF [SQCBCDIF] Order #: [id number] FUTURE ALBUMIN RANDOM URINE [SQUALBR] Order #: [id number] FUTURE Prescriptions as of 07/14/2018 Sig: COMPOUNDED PRESCRIPTION Drive Medical Bath Seat witho* CLOPIDOGREL 75 MG TABLET Take 1 tablet by mouth once d* PRAVASTATIN 40 MG TABLET Take 1 tablet by mouth once d* ACIDOPHILUS PROBIOTIC ORAL Take by mouth once daily. LANCETS Patient test sugar level 3x d* BLOOD SUGAR DIAGNOSTIC STRIPS Use as instructed to check bl* * ALBUTEROL SULFATE HFA 90 MCG/* Inhale 2 Puffs as instructed * PANTOPRAZOLE 40 MG TABLET,DEL* Take 1 tablet by mouth once d* RIVAROXABAN 20 MG TABLET Take 1 tablet by mouth daily * DULOXETINE 30 MG CAPSULE,BERNARDINO* Take 1 capsule by mouth once * GABAPENTIN 300 MG CAPSULE Take 1 capsule by mouth three* ASPIRIN 81 MG TABLET,DELAYED * Take 1 tablet by mouth once d* SPIRONOLACTONE 25 MG TABLET Take 1 tablet by mouth once d* METOPROLOL TARTRATE 50 MG TAB* Take 1 tablet by mouth three * MESALAMINE 800 MG TABLET,BERNARDINO* Take 1 tablet by mouth twice * LISINOPRIL 20 MG TABLET Take 1 tablet by mouth twice * FLUCONAZOLE 150 MG TABLET Take 1 tablet by mouth once d* Patient not taking: Reported on 03/12/2018 ERYTHROMYCIN 250 MG TABLET,DE* TAKE ONE TABLET BY MOUTH FOUR* Patient not taking: Reported on 03/12/2018 COMPOUNDED PRESCRIPTION Kiarra. Apply as directed. Di* COLLAGENASE CLOSTRIDIUM HISTO* Apply 1 application to affect* HYDROCODONE 10 MG-ACETAMINOPH* Take 1 tablet by mouth every * Patient not taking: Reported on 03/12/2018 HYDROCODONE 10 MG-ACETAMINOPH* Take 1 tablet by mouth every * Patient not taking: Reported on 03/12/2018 HYDROCODONE 10 MG-ACETAMINOPH* Take 1 tablet by mouth every * METFORMIN ER 500 MG TABLET,EX* Take 1 tablet by mouth three * DIAZEPAM 5 MG TABLET HYDROCODONE 10 MG-ACETAMINOPH* HYDROCODONE 10 MG-ACETAMINOPH* Take 1 tablet by mouth every * CHLORHEXIDINE GLUCONATE 0.12 * Use 15 mL as instructed twice* HYDROCHLOROTHIAZIDE 25 MG TAB* Take 1 tablet by mouth once d* Patient not taking: Reported on 03/12/2018 NITROGLYCERIN 0.4 MG SUBLINGU* Dissolve 1 tablet under the t* NYSTATIN-TRIAMCINOLONE 100,00* Apply 1-2 application to affe* Problem List As Of Date 07/14/2018 Noted Resolved CHRONIC FATIGUE SYNDROME [R53.82] INVALID FOR* MYALGIA AND MYOSITIS NOS [[id number]] INVALID FOR* Coronary atherosclerosis [I25.10] INVALID FOR* MIXED HYPERLIPIDEMIA [E78.2] INVALID FOR* BPH W/O URINARY OBS/LUTS [N40.0] INVALID FOR* UNILAT INGUINAL HERNIA [K40.90] INVALID FOR* 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] INVALID FOR* Shortness of breath [R06.02] Esophagitis, unspecified [K20.9] INVALID FOR* Environmental allergies [Z91.09] INVALID FOR* Hypogonadism male [E29.1] INVALID FOR* Occlusion and stenosis of carotid artery withou*INVALID FOR* Essential hypertension [I10] INVALID FOR* Hua's esophagus [K22.70] 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*INVALID FOR* Sprain, low back [S33.5XXA] INVALID FOR* Encounter Status:Closed by HIRAM COWAN on 07/15/18 PROGRESS Observed: 07/11/2018 Status: COMPLETED Source: [place] 11:59 AM [facility] REPOSITORY HNO ID: [id number] Author: Prosper Faria Service: (none) Author Type: Nurse Practitioner Type: Progress Notes Filed: 07/11/2018 11:59 AM Note Text: Noted. Prosper Faria APRN.CNP PROGRESS Observed: 07/11/2018 Status: COMPLETED Source: [place] 11:46 AM [facility] REPOSITORY HNO ID: [id number] Author: Chapo CazaresRn) Service: (none) Author Type: Registered Nurse Type: Progress Notes Filed: 07/11/2018 11:59 AM Note Text: PRIMARY CARE COORDINATION FOLLOW-UP NOTE Provider Action/FYI Call to Pt left a vm Patient identified by name and date of . YES Abstract Searcher plan for next outreach: Post Discharge Follow-Up Signature Hiram Cowan RN July 11, 2018 PROGRESS Observed: 07/04/2018 Status: COMPLETED Source: [place] 2:21 PM [facility] REPOSITORY HNO ID: [id number] Author: Chapo CazaresRn) Service: (none) Author Type: Registered Nurse Type: Progress Notes Filed: 07/11/2018 11:59 AM Note Text: TRANSITION CARE MANAGEMENT (TCM) INITIAL CONTACT Provider Action/FYI: 07/04/18 Call to Pt x2 left a vm with Abstract Searcher's phone number 07/08/18 Call to Pt left a vm with Abstract Searcher phone number 07/09/18 Call to Pt Initial contact with patient post discharge, 07/04/18 Call to Pt x2 left a vm, call to Pt 07/08, and 07/09/18. Patient identified by name and . SUMMARY: -Pt discharged from [facility] 06/27/18- 07/02/18. -Follow up appointment on 07/16/18. -Medication review done ( Unable to reach Pt/Please complete at OV) -Admitted for: Pneumobilia (Acute), Upper GI bleed (Acute), Syncope (Acute), Atrial fibrillation with RVR (Acute) Hyperkalemia (Acute), Acute renal failure (Acute) Hypertension (Chronic) Peripheral vascular occlusive disease (Chronic) Type 2 diabetes mellitus without complications (Chronic) Non-rheumatic tricuspid valve insufficiency (Chronic) Nonrheumatic aortic valve insufficiency (Chronic) History of coronary artery stent placement (Chronic ~01/05/03) Stent X 2 Mid LAD @ [place] 01/05/2003, Atherosclerosis of coronary artery of tribe heart without angina pectoris (Chronic) Hyperlipidemia (Chronic) NEW MEDICATIONS: Following Prescrptions Were Given to Patient: Pantoprazole Sodium [Protonix] 40 mg PO DAILY #30 tab Rivaroxaban [Xarelto] 20 mg PO DAILY #30 tab Rivaroxaban [Xarelto] 15 mg PO BIDCM #42 tab MEDS HELD/DISCONTINUED: BRIEF HOSPITAL COURSE: (Discharge summary not completed 07/04/18) Hospital Course and Treatment Nephrology gastroenterology cardiology Operations: None Procedures: - temporary dialysis catheter placement and dialysis Summary of Care Provided: Discharge Diet: No Restrictions Discharge Activity: Return to Normal Activity Hiram Cowan RN July 04, 2018 2:24 PM July 08, 2018 11:34 AM July 09, 2018 12:11 PM OBDULIO Observed: 07/04/2018 Status: COMPLETED Source: [place] 12:00 AM [facility] REPOSITORY Patient Outreach (FAMPWS) GIANA TANG ([id number]) 1950 M NFR Date Time Provider Department 07/04/18 CHAPO CazaresRN) FAMPWS During your visit today, we recorded the following information about you: Hiram Cowan RN 07/11/2018 11:59 AM Signed TRANSITION CARE MANAGEMENT (TCM) INITIAL CONTACT Provider Action/FYI: 07/04/18 Call to Pt x2 left a vm with Abstract Searcher's phone number 07/08/18 Call to Pt left a vm with Abstract Searcher phone number 07/09/18 Call to Pt Initial contact with patient post discharge, 07/04/18 Call to Pt x2 left a vm, call to Pt 07/08, and 07/09/18. Patient identified by name and . SUMMARY: -Pt discharged from [facility] 06/27/18- 07/02/18. -Follow up appointment on 07/16/18. -Medication review done ( Unable to reach Pt/Please complete at OV) -Admitted for: Pneumobilia (Acute), Upper GI bleed (Acute), Syncope (Acute), Atrial fibrillation with RVR (Acute) Hyperkalemia (Acute), Acute renal failure (Acute) Hypertension (Chronic) Peripheral vascular occlusive disease (Chronic) Type 2 diabetes mellitus without complications (Chronic) Non-rheumatic tricuspid valve insufficiency (Chronic) Nonrheumatic aortic valve insufficiency (Chronic) History of coronary artery stent placement (Chronic ~01/05/03) Stent X 2 Mid LAD @ [place] 01/05/2003, Atherosclerosis of coronary artery of tribe heart without angina pectoris (Chronic) Hyperlipidemia (Chronic) NEW MEDICATIONS: Following Prescrptions Were Given to Patient: Pantoprazole Sodium [Protonix] 40 mg PO DAILY #30 tab Rivaroxaban [Xarelto] 20 mg PO DAILY #30 tab Rivaroxaban [Xarelto] 15 mg PO BIDCM #42 tab MEDS HELD/DISCONTINUED: BRIEF HOSPITAL COURSE: (Discharge summary not completed 07/04/18) Hospital Course and Treatment Nephrology gastroenterology cardiology Operations: None Procedures: - temporary dialysis catheter placement and dialysis Summary of Care Provided: Discharge Diet: No Restrictions Discharge Activity: Return to Normal Activity Hiram Cowan RN July 04, 2018 2:24 PM July 08, 2018 11:34 AM July 09, 2018 12:11 PM Hiram Cowan RN 07/11/2018 11:59 AM Signed PRIMARY CARE COORDINATION FOLLOW-UP NOTE Provider Action/FYI Call to Pt left a vm Patient identified by name and date of . YES Abstract Searcher plan for next outreach: Post Discharge Follow-Up Signature Hiram Cowan RN July 11, 2018 Prosper Faria APRN.CNP 07/11/2018 11:59 AM Signed Noted. Prosper Faria APRN.CNP Allergies As of Date: 07/04/2018 Noted Allergy Reaction GABAPENTIN 03/17/2018 14 - Other: See Comments Comments: Rash, hives, itching, trouble breathing, shakiness, trouble with eyesight ARTHRITIS (HOMEOPATHIC PRODUCTS) 04/30/2006 ATARAX (HYDROXYZINE HCL) 06/27/2011 16 - Unknown CEFACLOR 04/30/2006 CHOLESTEROL 04/30/2006 Comments: any cholestrol lowering medication CIPRO (CIPROFLOXACIN) 04/30/2006 CREATINE MONOHYDRATE 07/17/2007 Comments: muscle spasms CRESTOR (ROSUVASTATIN CALCIUM) 06/27/2011 16 - Unknown DARVOCET A500 (PROPOXYPHENE N-DIANE*04/30/2006 Comments: Hives, airway closes DYE- red and yellow [Other] 06/27/2011 16 - Unknown ELAVIL (AMITRIPTYLINE HCL) 08/01/2007 Comments: Increased depression INFLUENZA VACCINE TRI-SP -08/28/2012 4 - Hives 14 - Other: See Comments Comments: Throat swelling IODINE (CONTRAST DYE) 04/30/2006 LATEX 04/30/2006 4 - Hives LEVAQUIN (LEVOFLOXACIN) 06/17/2014 16 - Unknown LIDOCAINE 04/30/2006 Comments: Close airway LIPITOR (ATORVASTATIN CALCIUM) 06/27/2011 16 - Unknown LOSARTAN 03/11/2017 4 - Hives LOVASTATIN 06/27/2011 16 - Unknown muscle relaxants [Other] 04/30/2006 NIACIN 06/27/2011 5 - Intolerance PENICILLINS 04/30/2006 4 - Hives Comments: Close airway PNEUMOVAX 23 (PNEUMOCOCCAL 23-RESHMA*06/27/2011 4 - Hives Comments: Also caused severe GI upset SIMVASTATIN 09/21/2013 4 - Hives 14 - Other: See Comments Comments: Gastrointestinal/colitis symptoms SULFA (SULFONAMIDE ANTIBIOTICS) 04/30/2006 TETANUS VACCINES AND TOXOID 04/08/2007 10 - Anaphylaxis TETRACYCLINE 04/30/2006 ZITHROMAX (AZITHROMYCIN) 04/30/2006 Date Reviewed: 03/12/2018 Reviewed by: Pratima Gorman - Fully Assessed Reason for Visit: Post-Acute Transition [3811] Cmt: TCM 14, [facility] D/C 07/02/18 Reason For Visit History Recorded Prescriptions as of 07/04/2018 Sig: PANTOPRAZOLE 40 MG TABLET,DEL* Take 1 tablet by mouth once d* RIVAROXABAN 20 MG TABLET Take 1 tablet by mouth daily * CLOPIDOGREL 75 MG TABLET Take 1 tablet by mouth once d* ASPIRIN 81 MG TABLET,DELAYED * Take 1 tablet by mouth once d* SPIRONOLACTONE 25 MG TABLET Take 1 tablet by mouth once d* METOPROLOL TARTRATE 50 MG TAB* Take 1 tablet by mouth three * PRAVASTATIN 40 MG TABLET Take 1 tablet by mouth once d* MESALAMINE 800 MG TABLET,BERNARDINO* Take 1 tablet by mouth twice * LISINOPRIL 20 MG TABLET Take 1 tablet by mouth twice * FLUCONAZOLE 150 MG TABLET Take 1 tablet by mouth once d* Patient not taking: Reported on 03/12/2018 ERYTHROMYCIN 250 MG TABLET,DE* TAKE ONE TABLET BY MOUTH FOUR* Patient not taking: Reported on 03/12/2018 COMPOUNDED PRESCRIPTION Kiarra. Apply as directed. Di* COLLAGENASE CLOSTRIDIUM HISTO* Apply 1 application to affect* HYDROCODONE 10 MG-ACETAMINOPH* Take 1 tablet by mouth every * Patient not taking: Reported on 03/12/2018 HYDROCODONE 10 MG-ACETAMINOPH* Take 1 tablet by mouth every * Patient not taking: Reported on 03/12/2018 HYDROCODONE 10 MG-ACETAMINOPH* Take 1 tablet by mouth every * Patient not taking: Reported on 03/12/2018 METFORMIN ER 500 MG TABLET,EX* Take 1 tablet by mouth three * DIAZEPAM 5 MG TABLET HYDROCODONE 10 MG-ACETAMINOPH* HYDROCODONE 10 MG-ACETAMINOPH* Take 1 tablet by mouth every * CHLORHEXIDINE GLUCONATE 0.12 * Use 15 mL as instructed twice* ACIDOPHILUS PROBIOTIC ORAL Take by mouth once daily. HYDROCHLOROTHIAZIDE 25 MG TAB* Take 1 tablet by mouth once d* Patient not taking: Reported on 03/12/2018 NITROGLYCERIN 0.4 MG SUBLINGU* Dissolve 1 tablet under the t* NYSTATIN-TRIAMCINOLONE 100,00* Apply 1-2 application to affe* LANCETS Patient test sugar level 3x d* BLOOD SUGAR DIAGNOSTIC STRIPS Use as instructed to check bl* * ALBUTEROL SULFATE HFA 90 MCG/* Inhale 2 Puffs as instructed * Problem List As Of Date 07/04/2018 Noted Resolved CHRONIC FATIGUE SYNDROME [R53.82] INVALID FOR* MYALGIA AND MYOSITIS NOS [ZAQ6543] INVALID FOR* Coronary atherosclerosis [I25.10] INVALID FOR* MIXED HYPERLIPIDEMIA [E78.2] INVALID FOR* BPH W/O URINARY OBS/LUTS [N40.0] INVALID FOR* UNILAT INGUINAL HERNIA [K40.90] INVALID FOR* 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] INVALID FOR* Shortness of breath [R06.02] Esophagitis, unspecified [K20.9] INVALID FOR* Environmental allergies [Z91.09] INVALID FOR* Hypogonadism male [E29.1] INVALID FOR* Occlusion and stenosis of carotid artery withou*INVALID FOR* Essential hypertension [I10] INVALID FOR* Hua's esophagus [K22.70] 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*INVALID FOR* Sprain, low back [S33.5XXA] INVALID FOR* Encounter Status:Closed by PROSPER FARIA CNP on 07/11/18 PROGRESS Observed: 07/03/2018 Status: COMPLETED Source: [place] 2:44 PM [facility] REPOSITORY HNO ID: [id number] Author: Chapo Lopez (Rn) Service: (none) Author Type: Registered Nurse Type: Progress Notes Filed: 07/03/2018 2:49 PM Note Text: PRIMARY CARE COORDINATION QUICK NOTE Provider Action/FYI Noted, will review Patient identified by name and date . Hiram Cowan RN July 03, 2018 2:45 PM PROGRESS Observed: 07/03/2018 Status: COMPLETED Source: [place] 12:39 PM [facility] REPOSITORY HNO ID: [id number] Author: Brittanie Wyatt Ma Service: (none) Author Type: (none) Type: Progress Notes Filed: 07/03/2018 2:49 PM Note Text: PCP reviewed [facility] ER records and would like pt to be CC. Patient was admitted to [facility] on 06/27/18 and d/c 07/02/18. Admitted for: Pneumobilia, Upper GI bleed, Syncope, A-fib RVR, Hyperkalemia and Acute Renal Failure. All documentation has been placed in CC inbox at Medical Records. Brittanie Wyatt Ma CNPTOUTREACH Observed: 07/03/2018 Status: COMPLETED Source: [place] 12:00 AM [facility] REPOSITORY Patient Outreach (FAMPWS) GIANA TANG ([id number]) 1950 M NFR Date Time Provider Department 07/03/18 PAYAM RUVALCABA [facility] During your visit today, we recorded the following information about you: Brittanie Wyatt Ma 07/03/2018 2:49 PM Signed PCP reviewed [facility] ER records and would like pt to be CC. Patient was admitted to [facility] on 06/27/18 and d/c 07/02/18. Admitted for: Pneumobilia, Upper GI bleed, Syncope, A-fib RVR, Hyperkalemia and Acute Renal Failure. All documentation has been placed in CC inbox at Medical Records. Brittanie Cowan RN 07/03/2018 2:49 PM Signed PRIMARY CARE COORDINATION QUICK NOTE Provider Action/FYI Noted, will review Patient identified by name and date . Hiram Cowan RN July 03, 2018 2:45 PM Allergies As of Date: 07/03/2018 Noted Allergy Reaction GABAPENTIN 03/17/2018 14 - Other: See Comments Comments: Rash, hives, itching, trouble breathing, shakiness, trouble with eyesight ARTHRITIS (HOMEOPATHIC PRODUCTS) 04/30/2006 ATARAX (HYDROXYZINE HCL) 06/27/2011 16 - Unknown CEFACLOR 04/30/2006 CHOLESTEROL 04/30/2006 Comments: any cholestrol lowering medication CIPRO (CIPROFLOXACIN) 04/30/2006 CREATINE MONOHYDRATE 07/17/2007 Comments: muscle spasms CRESTOR (ROSUVASTATIN CALCIUM) 06/27/2011 16 - Unknown DARVOCET A500 (PROPOXYPHENE N-DIANE*04/30/2006 Comments: Hives, airway closes DYE- red and yellow [Other] 06/27/2011 16 - Unknown ELAVIL (AMITRIPTYLINE HCL) 08/01/2007 Comments: Increased depression INFLUENZA VACCINE TRI-SP -10 08/28/2012 4 - Hives 14 - Other: See Comments Comments: Throat swelling IODINE (CONTRAST DYE) 04/30/2006 LATEX 04/30/2006 4 - Hives LEVAQUIN (LEVOFLOXACIN) 06/17/2014 16 - Unknown LIDOCAINE 04/30/2006 Comments: Close airway LIPITOR (ATORVASTATIN CALCIUM) 06/27/2011 16 - Unknown LOSARTAN 03/11/2017 4 - Hives LOVASTATIN 06/27/2011 16 - Unknown muscle relaxants [Other] 04/30/2006 NIACIN 06/27/2011 5 - Intolerance PENICILLINS 04/30/2006 4 - Hives Comments: Close airway PNEUMOVAX 23 (PNEUMOCOCCAL 23-RESHMA*06/27/2011 4 - Hives Comments: Also caused severe GI upset SIMVASTATIN 09/21/2013 4 - Hives 14 - Other: See Comments Comments: Gastrointestinal/colitis symptoms SULFA (SULFONAMIDE ANTIBIOTICS) 04/30/2006 TETANUS VACCINES AND TOXOID 04/08/2007 10 - Anaphylaxis TETRACYCLINE 04/30/2006 ZITHROMAX (AZITHROMYCIN) 04/30/2006 Date Reviewed: 03/12/2018 Reviewed by: Pratima Gorman - Fully Assessed Reason for Visit: [facility] Follow Up [4539] Cmt: [facility] Discharge on 07/02/18. Prescriptions as of 07/03/2018 Sig: DULOXETINE 30 MG CAPSULE,BERNARDINO* Take 1 capsule by mouth once * GABAPENTIN 300 MG CAPSULE Take 1 capsule by mouth three* CLOPIDOGREL 75 MG TABLET Take 1 tablet by mouth once d* ASPIRIN 81 MG TABLET,DELAYED * Take 1 tablet by mouth once d* SPIRONOLACTONE 25 MG TABLET Take 1 tablet by mouth once d* METOPROLOL TARTRATE 50 MG TAB* Take 1 tablet by mouth three * PRAVASTATIN 40 MG TABLET Take 1 tablet by mouth once d* MESALAMINE 800 MG TABLET,BERNARDINO* Take 1 tablet by mouth twice * LISINOPRIL 20 MG TABLET Take 1 tablet by mouth twice * FLUCONAZOLE 150 MG TABLET Take 1 tablet by mouth once d* Patient not taking: Reported on 03/12/2018 ERYTHROMYCIN 250 MG TABLET,DE* TAKE ONE TABLET BY MOUTH FOUR* Patient not taking: Reported on 03/12/2018 COMPOUNDED PRESCRIPTION Kiarra. Apply as directed. Di* COLLAGENASE CLOSTRIDIUM HISTO* Apply 1 application to affect* HYDROCODONE 10 MG-ACETAMINOPH* Take 1 tablet by mouth every * Patient not taking: Reported on 03/12/2018 HYDROCODONE 10 MG-ACETAMINOPH* Take 1 tablet by mouth every * Patient not taking: Reported on 03/12/2018 HYDROCODONE 10 MG-ACETAMINOPH* Take 1 tablet by mouth every * Patient not taking: Reported on 03/12/2018 METFORMIN ER 500 MG TABLET,EX* Take 1 tablet by mouth three * DIAZEPAM 5 MG TABLET HYDROCODONE 10 MG-ACETAMINOPH* HYDROCODONE 10 MG-ACETAMINOPH* Take 1 tablet by mouth every * CHLORHEXIDINE GLUCONATE 0.12 * Use 15 mL as instructed twice* ACIDOPHILUS PROBIOTIC ORAL Take by mouth once daily. 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.2] INVALID FOR* BPH W/O URINARY OBS/LUTS [N40.0] INVALID FOR* UNILAT INGUINAL HERNIA [K40.90] INVALID FOR* 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] INVALID FOR* Shortness of breath [R06.02] Esophagitis, unspecified [K20.9] INVALID FOR* Environmental allergies [Z91.09] INVALID FOR* Hypogonadism male [E29.1] INVALID FOR* Occlusion and stenosis of carotid artery withou*INVALID FOR* Essential hypertension [I10] INVALID FOR* Hua's esophagus [K22.70] 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*INVALID FOR* Sprain, low back [S33.5XXA] INVALID FOR* Encounter Status:Closed by HIRAM COWAN on 07/03/18 DISCHARGE SUMMARY Observed: 07/02/2018 Status: F Source: [place] 4:44 PM [facility] [place] [facility] Medical Records Department [address] [place] [address] Discharge Summary 07/02/18 1641 MR#: [id number] Acct: [id number] Name: GIANA TANG Rep #: [id number] : 1950 68 From: Sabrina Martinez MD PCP: Payam Ruvalcaba MD Status: ADM IN Location: [place] [address] Discharge Date and Diagnosis - Problem List Patient Problems: Active and Suspected Problems (Last Reviewed 06/28/18 @ 12:15 by Pop Stahl MD) Pneumobilia (Acute) Upper GI bleed (Acute) Syncope (Acute) Atrial fibrillation with RVR (Acute) Hyperkalemia (Acute) Acute renal failure (Acute) Date of Admission: 06/27/18 Date of Discharge: 07/02/18 - Primary Discharge Diagnosis Active and Suspected Problems (Last Reviewed 06/28/18 @ 12:15 by Pop Stahl MD) Pneumobilia (Acute) Upper GI bleed (Acute) Syncope (Acute) Atrial fibrillation with RVR (Acute) Hyperkalemia (Acute) Acute renal failure (Acute) - Secondary Discharge Diagnosis Chronic Problems (Last Reviewed 06/28/18 @ 12:15 by Pop Stahl MD) Hypertension (Chronic) Peripheral vascular occlusive disease (Chronic) Type 2 diabetes mellitus without complications (Chronic) Non-rheumatic tricuspid valve insufficiency (Chronic) Nonrheumatic aortic valve insufficiency (Chronic) History of coronary artery stent placement (Chronic 01/05/03) Stent X 2 Mid LAD @ [facility] 01/05/2003, Atherosclerosis of coronary artery of tribe heart without angina pectoris (Chronic) Hyperlipidemia (Chronic) Hospital Course and Treatment Nephrology gastroenterology cardiology Operations: None Procedures: - - temporary dialysis catheter placement and dialysis Summary of Care Provided: The patient is a 68 year old M [] Discharge Diet: No Restrictions Discharge Activity: Return to Normal Activity Home Medications: Medications to take at Discharge Albuterol Inhaler [Ventolin Hfa] 2 puff INHALATION PRN PRN 08/23/14 Clopidogrel Bisulfate [Plavix] 75 mg PO DAILY 08/23/14 Hydrocodone/Acetaminophen [Hydrocodon-Acetaminophn 10-325] 1 tab PO DAILY 08/23/14 Pravastatin [Pravachol] 40 mg PO QHS 08/23/14 Metoprolol Tartrate [Lopressor (beta becky)] 50 mg PO BID 02/17/15 Pantoprazole Sodium [Protonix] 40 mg PO DAILY #30 tab 07/02/18 Rivaroxaban [Xarelto] 15 mg PO BIDCM #42 tab 07/02/18 Rivaroxaban [Xarelto] 20 mg PO DAILY #30 tab 07/02/18 Following Prescrptions Were Given to Patient: Pantoprazole Sodium [Protonix] 40 mg PO DAILY #30 tab Rivaroxaban [Xarelto] 20 mg PO DAILY #30 tab Rivaroxaban [Xarelto] 15 mg PO BIDCM #42 tab Primary Care Physician: Payam Ruvalcaba MD [Primary Care Provider] - Please follow up with your Primary Care Physician in: in 1- 2 weeks Please Follow Up With: Prosper Faria NP-C Patient Condition:: Fair Medical Necessity - Tobacco Use Smoking Status: Former smoker Meaningful Use Info Meaningful Use Diagnoses (Choose all that apply): None applicable Code Visit Inpatient E AND M: 24664 Disch Hosp 07/02/18 1644 <Electronically signed by Sabrina Martinez MD> Date Sabrina Martinez MD Cosigner Signature (if applicable): Date CC: Sabrina Martinez M.D.; Payam Ruvalcaba MD Signed DISCHARGE INSTRUCTION Observed: 07/02/2018 Status: F Source: [place] 4:41 PM [facility] [place] [facility] Medical Records Department [address] [place] [address] Instructions for Home/Discharge Instructions 07/02/18 1636 MR#: [id number] Acct: [id number] Name: GIANA TANG Rep #: [id number] : 1950 68 From: Sabrina Martinez MD PCP: Payam Ruvalcaba MD Status: ADM IN - Discharge Diagnoses Current Active Problems: Current Active and Chronic Problems (Last Reviewed 06/28/18 @ 12:15 by oPp Stahl MD) Pneumobilia (Acute) Upper GI bleed (Acute) Syncope (Acute) Atrial fibrillation with RVR (Acute) Hyperkalemia (Acute) Acute renal failure (Acute) You will use the following diet at home:: No restrictions Discharge Activity: Return to Normal Activity Allergies/Adverse Reactions: Allergies acetaminophen [From Darvocet-N] Allergy (Unknown, Verified 06/27/18 08:25) Unknown amitriptyline HCl [From Elavil] Allergy (Unknown, Verified 06/27/18 08:25) Unknown atorvastatin calcium [From Lipitor] Allergy (Unknown, Verified 06/27/18 08:25) Unknown azithromycin [From Zithromax] Allergy (Unknown, Verified 06/27/18 08:25) Unknown cefaclor [Cefaclor] Allergy (Unknown, Verified 06/27/18 08:25) Unknown ciprofloxacin [From Cipro] Allergy (Unknown, Verified 06/27/18 08:25) Unknown ciprofloxacin HCl [From Cipro] Allergy (Unknown, Verified 06/27/18 08:25) Unknown hydroxyzine HCl [From Atarax] Allergy (Unknown, Verified 06/27/18 08:25) Unknown influenza virus vaccine, specific [Influenza Virus Vacc,Specific] Allergy (Unknown, Verified 06/27/18 08:25) Unknown iodine Allergy (Unknown, Verified 06/27/18 08:25) Unknown latex Allergy (Unknown, Verified 06/27/18 08:25) Unknown levofloxacin [From Levaquin] Allergy (Unknown, Verified 06/27/18 08:25) Unknown lidocaine Allergy (Unknown, Verified 06/27/18 08:25) Unknown lovastatin Allergy (Unknown, Verified 06/27/18 08:25) Unknown niacin Allergy (Unknown, Verified 06/27/18 08:25) Unknown Penicillins Allergy (Unknown, Verified 06/27/18 08:25) Unknown pneumococcal vaccine [Pneumococcal Vaccine] Allergy (Unknown, Verified 06/27/18 08:25) Unknown propoxyphene napsylate [From Darvocet-N] Allergy (Unknown, Verified 06/27/18 08:25) Unknown quinapril HCl [From Accupril] Allergy (Unknown, Verified 06/27/18 08:25) Unknown red dye Allergy (Unknown, Verified 06/27/18 08:25) Unknown rosuvastatin calcium [From Crestor] Allergy (Unknown, Verified 06/27/18 08:25) Unknown simvastatin Allergy (Unknown, Verified 06/27/18 08:25) Unknown Sulfa (Sulfonamide Antibiotics) Allergy (Unknown, Verified 06/27/18 08:25) Unknown Tetanus Vaccines and Toxoid [Tetanus Vaccines AND Toxoid] Allergy (Unknown, Verified 06/27/18 08:25) Unknown tetracycline [Tetracycline] Allergy (Unknown, Verified 06/27/18 08:25) Unknown yellow dye Allergy (Unknown, Verified 06/27/18 08:25) Unknown fentanyl Allergy (Verified 06/27/18 16:12) Unknown hydrochlorothiazide Allergy (Verified 06/27/18 08:25) Unknown CREATINE MONOHYDRATE Allergy (Unknown, Uncoded 06/27/18 08:25) Unknown Medications to take at Discharge Albuterol Inhaler [Ventolin Hfa] 2 puff INHALATION PRN PRN 08/23/14 Clopidogrel Bisulfate [Plavix] 75 mg PO DAILY 08/23/14 Hydrocodone/Acetaminophen [Hydrocodon-Acetaminophn 10-325] 1 tab PO DAILY 08/23/14 Pravastatin [Pravachol] 40 mg PO QHS 08/23/14 Metoprolol Tartrate [Lopressor (beta becky)] 50 mg PO BID 02/17/15 Pantoprazole Sodium [Protonix] 40 mg PO DAILY #30 tab 07/02/18 Rivaroxaban [Xarelto] 15 mg PO BIDCM #42 tab 07/02/18 Rivaroxaban [Xarelto] 20 mg PO DAILY #30 tab 07/02/18 The following prescriptions were given: Pantoprazole Sodium [Protonix] 40 mg PO DAILY #30 tab Rivaroxaban [Xarelto] 20 mg PO DAILY #30 tab Rivaroxaban [Xarelto] 15 mg PO BIDCM #42 tab Please follow up with your Primary Care Physician in: in 1- 2 weeks Test Results: Test results from this visit will be discussed in further detail at your follow-up appointment, if applicable. Please Follow Up With: Prosper Faria NP-C Proposed Discharge Date: 07/02/18 07/02/18 1641 <Electronically signed by Sabrina Martinez MD> Date Sabrina Martinez MD CC: Carlton Whitehead MD; Pop Palafox MD; Pop Stahl MD; Payam Ruvalcaba MD; Darren Steven MD CBC-COMPLETE BLOOD CNT Collected: 07/02/2018 Status: F Source: [place] NO DIFF 6:20 AM [facility] [place] TYPE CODE TESTS RESULT OUT OF RANGE REFERENCE UNITS LAB L100.1000 4.4-11.0 K/mm3 Normal WBC 5.9 LAB L100.1200 4.6-6.2 M/mm3 Low RBC 2.82 LAB L100.1300 13.0-16.5 g/dl Low HGB 8.6 LAB L100.1400 40-54 % Low HCT 26.8 LAB L100.1500 80-94 fL High MCV 95.0 LAB L100.1600 27.0-32.0 pg Normal MCH 30.5 LAB L100.1700 32-36 g/gl Normal MCHC 32.1 LAB L100.1810 11.6-14.6 % Normal RDW CV 13.6 LAB L100.1820 35.1-43.9 fl High RDW SD 47.2 LAB L100.1900 150-450 K/mm3 Low PLT 112 LAB L100.2000 6.2-12.0 fl Normal MPV 11.4 Performed By: #### L100.0500 #### [facility] [address] [place], [address] 12 LEAD ELECTROCARDIOGRAM Observed: 07/01/2018 Status: F Source: [place] 3:04 PM [facility] REPOSITORY [facility] Cardiovascular Services [address] [place] [address] 12 Lead EKG 06/28/18 0505 MR#: [id number] Acct: [id number] Name: GIANA TANG Rep #: [id number] : 1950 68 From: Sammy Leon MD Attending Dr: Naun Canada MD Status: ADM IN Ordering Dr: Merced Cox MD Date: 06/28/18 Location: [facility] Sex: M C Admitted: 06/27/18 Test Reason : AM EKG Blood Pressure : / mmHG Vent. Rate : 082 BPM Atrial Rate : 082 BPM P-R Int : 168 ms QRS Dur : 074 ms QT Int : 348 ms P-R-T Axes : 090 029 139 degrees QTc Int : 406 ms Normal sinus rhythm Low voltage QRS T wave abnormality, consider anterolateral ischemia Abnormal ECG When compared with ECG of 27-JUN-2018 18:51, MANUAL COMPARISON REQUIRED, DATA IS UNCONFIRMED Confirmed by MARSHALL GUERRERO, SAMMY ([id number]), image editor CLAUDIA CORADO ([id number]) on 07/01/2018 3:03:50 PM Referred By: [facility] Confirmed By:SAMMY LEON MD 07/01/18 1503 Date Sammy Leon MD CC: Merced Cox; Payam Ruvalcaba MD; Naun Canada MD Signed 12 LEAD ELECTROCARDIOGRAM Observed: 07/01/2018 Status: F Source: [place] 1:48 PM [facility] REPOSITORY [facility] Cardiovascular Services [address] [place] [address] 12 Lead EKG 06/27/18 0812 MR#: [id number] Acct: [id number] Name: GIANA TANG Rep #: [id number] : 1950 68 From: Sammy Leon MD Attending Dr: Naun Canada MD Status: ADM IN Ordering Dr: Jonel Hassan DO Date: 06/27/18 Location: [facility] Sex: M C Admitted: 06/27/18 Test Reason : SYNCOPE Blood Pressure : / mmHG Vent. Rate : 099 BPM Atrial Rate : 099 BPM P-R Int : 170 ms QRS Dur : 080 ms QT Int : 322 ms P-R-T Axes : 076 051 096 degrees QTc Int : 413 ms Normal sinus rhythm Nonspecific ST and T wave abnormality Abnormal ECG Confirmed by SAMMY LEON MD ([id number]), image editor CLAUDIA CORADO ([id number]) on 07/01/2018 1:47:54 PM Referred By: SHELLIE Confirmed By:SAMMY LEON MD 07/01/18 1347 Date Sammy Leon MD CC: Jonel Hassan DO; Payam Ruvalcaba MD; Naun Canada MD Signed 12 LEAD ELECTROCARDIOGRAM Observed: 07/01/2018 Status: F Source: [place] 1:48 PM [facility] [place] [facility] Cardiovascular Services [address] [place] [address] 12 Lead EKG 06/27/18 0946 MR#: [id number] Acct: [id number] Name: GIANA TANG Rep #: [id number] : 1950 68 From: aSmmy Leon MD Attending Dr: Naun Canada MD Status: ADM IN Ordering Dr: Tye Huggins MD Date: 06/27/18 Location: [facility] Sex: M C Admitted: 06/27/18 Test Reason : RHYTHM CHANGE Blood Pressure : / mmHG Vent. Rate : 137 BPM Atrial Rate : 138 BPM P-R Int : 000 ms QRS Dur : 088 ms QT Int : 286 ms P-R-T Axes : 000 052 120 degrees QTc Int : [address] AND T wave abnormality, consider inferior ischemia Abnormal ECG Confirmed by SAMMY LEON MD ([id number]), image editor CLAUDIA CORADO ([id number]) on 07/01/2018 1:48:06 PM Referred By: SHELLIE Confirmed By:SAMMY LEON MD 07/01/18 1348 Date Sammy Leon MD CC: Payam Ruvalcaba MD; Naun Canada MD; Tye Huggins MD Signed OPERATIVE REPORT Observed: 07/01/2018 Status: F Source: [place] 12:44 PM [facility] [place] [facility] Medical Records Department [address] [place] [address] Operative Report 07/01/18 1240 MR#: [id number] Acct: [id number] Name: GIANA TANG Rep #: [id number] : 1950 68 From: Pop Stahl MD PCP: Payam Ruvalcaba MD Status: ADM IN Location: [place] [address] Problem List (1) Pneumobilia Status: Acute (2) Upper GI bleed Status: Acute Report of Operation Date of Procedure: 07/01/18 Pre-Operative Diagnosis: Pneumobilia. Upper GI bleed Post-Operative Diagnosis: Same Surgery/Procedure Performed:: Esophagogastroduodenoscopy with biopsy Type of Anesthesia:: MAC Description of Procedure: Patient was brought into the endoscopy suite. The back of his throat was sprayed with Cetacaine spray. A bite block was placed. He was given graded anesthesia. Scope was inserted into the back of the oropharynx and directed down through the esophagus into the stomach and into the duodenum. Operative findings: 1. Duodenum: Normal appearance no mass lesions no ulcerations a side view of the sphincter of Oddi all appeared normal. I was unable to see posterior to this though. 2. Stomach: Minimal antral gastritis was identified cold biopsy for H. pylori was obtained and sent to pathology. Rest of the stomach appeared normal there was no signs of any hiatal hernia there is no mass lesions and there was no ulcerations. 3. Esophagus: Normal appearance no mass lesions no ulcerations no esophagitis. The scope was withdrawn and the patient tolerated the procedure well. No apparent source of upper GI bleed. No masses seen in the duodenum. Would recommend probably an MRCP as an outpatient for evaluation of pneumobilia. - Admit VTE Documentation VTE Present on Admission: No VTE Mechan Device Prophylaxis: None VTE Pharm Prophylaxis ordered?: No Reason prophylaxis not ordered:: Treatment Not Indicated 07/01/18 1244 <Electronically signed by Pop Stahl MD> Date Pop Stahl MD CC: Carlton Whitehead MD; Pop Palafox MD; Pop Stahl MD; Payam Ruvalcaba MD; Darren Steven MD Signed GASTRIC BIOPSY Observed: 07/01/2018 Status: F Source: [place] 12:30 PM [facility] [place] Patient: GIANA TANG : 1950 (68/M) Acct Num: [id number] Phys: Sabrina Martinez M.D. Unit Num: [id number] Loc: U [id number] Specimen: [id number] Received: 07/01/18 - 1354 Spec Type: Gastric Bx TISSUES TISSUES: Gastric mucous membrane COMMENT The results of immunohistochemistry for Helicobacter pylori will be reported separately ([id number]). GROSS DESCRIPTION Received in fixative is one container labeled with the patient's name and designated antral biopsy. The specimen consists of two irregular fragments of light palomo soft tissue that in aggregate measure 0.2 x 0.2 x 0.1 cm. The specimen is totally submitted in one cassette. / AM:annabella 07/01/18 TC:5 CPT: 22940 HEADER OPERATION[place] [place] DIAGNOSIS: GI bleed TISSUE SUBMITTED: Antral biopsy for history and H. pylori MICROSCOPIC DESCRIPTION Slides are reviewed. MICROSCOPIC DIAGNOSIS Gastric antrum, biopsy: Strips of benign superficial gastric mucosa. AM:annabella 07/02/18 Signed Rey Vasquez 07/02/18 <signature on file> Performed By: #### PGASB #### [facility] [address] [place], [place] [address], [id number] CBC W/DIFF, AUTOMATED Collected: 07/01/2018 Status: F Source: [place] 8:45 AM [facility] [place] TYPE CODE TESTS RESULT OUT OF RANGE REFERENCE UNITS LAB L100.1000 4.4-11.0 K/mm3 Normal WBC 6.5 LAB L100.1200 4.6-6.2 M/mm3 Low RBC 2.91 LAB L100.1300 13.0-16.5 g/dl Low HGB 9.1 LAB L100.1400 40-54 % Low HCT 27.6 LAB L100.1500 80-94 fL High MCV 94.8 LAB L100.1600 27.0-32.0 pg Normal MCH 31.3 LAB L100.1700 32-36 g/gl Normal MCHC 33.0 LAB L100.1810 11.6-14.6 % Normal RDW CV 13.6 LAB L100.1820 35.1-43.9 fl High RDW SD 47.2 LAB L100.1900 150-450 K/mm3 Low PLT 103 LAB L100.2000 6.2-12.0 fl Normal MPV 11.8 LAB L100.2100 47-70 % Normal NEUT% 62.0 LAB L100.2200 19-41 % Normal LY% 23.8 LAB L100.2300 0-10 % High MONO% 10.1 LAB L100.2400 0-5 % Normal EO% 3.8 LAB L100.2500 0-1 % Normal BASO% 0.0 LAB L100.2550 0.0-0.9 % Normal IM GRAN % 0.300 Result Comment: IG% - Immature Granulocytes (promyelocytes, myelocytes and metamyelocytes) > 1% indicates that a LEFT SHIFT is Present. LAB L100.2620 2.0-7.7 X10 3/uL Normal Absolute Neut 4.0 LAB L100.2720 0.83-4.51 X10 3/ul Normal Absolute Lymph 1.55 Performed By: #### L100.0100 #### [facility] [address] [place], [place], [address] BASIC METABOLIC Collected: 07/01/2018 Status: F Source: [place] PROFILE (BMP) 8:45 AM [facility] [place] TYPE CODE TESTS RESULT OUT OF RANGE REFERENCE UNITS LAB L501.0100 74-106 mg/dL Normal GLU 96 Result Comment: Please note revised GLUCOSE reference range effective 2017. LAB L501.1000 7-18 mg/dL High BUN 20 LAB L501.1100 0.70-1.30 mg/dL Normal CREAT,SERUM 1.19 Result Comment: The validity of the calculated GFR AND GFRAA in patients over 70 years has not been determined. Clinical correlation is essential. LAB L501.1110 >60 mL/min Normal EST GFR 64 Result Comment: Non- GFR Calc LAB L501.1115 >60 mL/min Normal EST GFR - AA 78 Result Comment: GFR Calc LAB L501.1255 ml/min Normal Estimated CRCL 63.40 LAB L501.1300 10-20 RATIO Normal BUN/CRE 16.8 LAB L501.2200 8.5-10 mg/dL Low .1 CA 7.8 LAB L501.5300 136-14 mmol/L Normal 5 NA 143 LAB L501.5600 3.5-5. mmol/L Normal 1 K 4.2 LAB L501.5900 98-107 mmol/L High CL 114 LAB L501.6100 21.0-3 mmol/L Normal 2.0 CO2 22.0 LAB L501.6200 5-15 Normal GAP 7 Performed By: #### L500.2500 #### [facility] [address] [place], [address] IMMUNOHISTOCHEMISTRY Observed: 07/01/2018 Status: F Source: [place] 12:00 AM [facility] [place] Patient: GIANA TANG : 1950 (68/M) Acct Num: [id number] Phys: Sabrina Martinez M.D. Unit Num: [id number] Loc: [facility] [id number] Specimen: [id number] Received: 07/01/181425 Spec Type: IMMUNO TISSUES TISSUES: Stomach, NOS SPECIMEN INFORMATION: Tissue Source: Antral biopsy Clinical Info: GI bleed Specimen Number: [id number] CPT code: 23046 METHODOLOGY: Deparaffinized sections of prefer/formalin-fixed tissue or PAP/DQ stained slides are incubated with monoclonal/polyclonal antibodies/oligonucleotide probes. Localization is made via biotin free immunoperoxidase method. Appropriate controls are performed and reacted as expected. Results on target cell population are indicated in the following table: RESULTS: ANTIBODY / CLONE RESULT H Pylori (polyclonal) negative These tests were developed and their performance characteristics determined by [facility]. They may not have been cleared or approved by the U.S. Food and Drug Administration. The FDA has determined that such clearance or approval is not necessary. INTERPRETATION: Antral biopsy: Negative for Helicobacter pylori organisms. AM:annabella 07/02/18 PHYSICIAN AND INSTIT[facility] [address] [address] Signed Rey Pedro 07/02/18 <signature on file> Performed By: #### PIMM #### [facility] [address] [place] [address]. [place], [address] BASIC METABOLIC Collected: 06/30/2018 Status: F Source: [place] PROFILE (BMP) 6:00 AM [facility] [place] TYPE CODE TESTS RESULT OUT OF RANGE REFERENCE UNITS LAB L501.0100 74-106 mg/dL High GLU 112 Result Comment: Fasting Glucose result from 100 to 125 mg/dL suggests IMPAIRED HOMEOSTASIS per A.D.A. criteria. Please note revised GLUCOSE reference range effective 2017. LAB L501.1000 7-18 mg/dL High BUN 31 LAB L501.1100 0.70-1.30 mg/dL High CREAT,SERUM 1.39 Result Comment: The validity of the calculated GFR AND GFRAA in patients over 70 years has not been determined. Clinical correlation is essential. LAB L501.1110 >60 mL/min Low EST GFR 54 Result Comment: Non- GFR Calc LAB L501.1115 >60 mL/min Normal EST GFR - AA 65 Result Comment: GFR Calc LAB L501.1255 ml/min Normal Estimated CRCL 54.28 LAB L501.1300 10-20 RATIO High BUN/CRE 22.3 LAB L501.2200 8.5-10 mg/dL Low .1 CA 7.6 LAB L501.5300 136-14 mmol/L Normal 5 NA 143 LAB L501.5600 3.5-5. mmol/L Normal 1 K 4.1 LAB L501.5900 98-107 mmol/L High CL 114 LAB L501.6100 21.0-3 mmol/L Normal 2.0 CO2 22.0 LAB L501.6200 5-15 Normal GAP 7 Performed By: #### L500.2500 #### [facility] [place], [address] CBC W/DIFF, AUTOMATED Collected: 06/30/2018 Status: F Source: [place] 6:00 AM [facility] [place] TYPE CODE TESTS RESULT OUT OF RANGE REFERENCE UNITS LAB L100.1000 4.4-11.0 K/mm3 Normal WBC 5.8 LAB L100.1200 4.6-6.2 M/mm3 Low RBC 2.62 LAB L100.1300 13.0-16.5 g/dl Low HGB 8.3 LAB L100.1400 40-54 % Low HCT 25.4 LAB L100.1500 80-94 fL High MCV 96.9 LAB L100.1600 27.0-32.0 pg Normal MCH 31.7 LAB L100.1700 32-36 g/gl Normal MCHC 32.7 LAB L100.1810 11.6-14.6 % Normal RDW CV 13.5 LAB L100.1820 35.1-43.9 fl High RDW SD 44.9 LAB L100.1900 150-450 K/mm3 Low PLT 95 LAB L100.2000 6.2-12.0 fl Normal MPV 11.5 LAB L100.2100 47-70 % Normal NEUT% 55.2 LAB L100.2200 19-41 % Normal LY% 28.1 LAB L100.2300 0-10 % High MONO% 11.0 LAB L100.2400 0-5 % Normal EO% 4.8 LAB L100.2500 0-1 % Normal BASO% 0.2 LAB L100.2550 0.0-0.9 % Normal IM GRAN % 0.700 Result Comment: IG% - Immature Granulocytes (promyelocytes, myelocytes and metamyelocytes) > 1% indicates that a LEFT SHIFT is Present. LAB L100.2620 2.0-7.7 X10 3/uL Normal Absolute Neut 3.2 LAB L100.2720 0.83-4.51 X10 3/ul Normal Absolute Lymph 1.63 Performed By: #### L100.0100 #### [facility] [address] [place], [address] CHEST 1 VIEW Observed: 06/29/2018 Status: F Source: [place] (PORTABLE) 6:23 AM [facility] [place] [facility] Imaging Services [address] [place] [address] Chest 1 View (Portable) MR#: [id number] Acct: [id number] Name: GIANA TANG Rep #: [id number] : 1950 M 68 From: Savanah Colindres MD PCP: Peg GUERRERO,Payam Status: ADM IN Study: Chest 1 View (Portable) Date of Exam: 06/29/18 Exam# [id number] Ordering Dr: Carlton Whitehead MD STUDY: X-RAY CHEST REASON FOR EXAM: Male, 68 years old. Cough TECHNIQUE: Single AP portable view of the chest. COMPARISON: 06/27/2018 1355 and 0843 hours. FINDINGS: There are superimposed monitor leads. There are areas of hyperinflation. Minor compression of basilar parenchyma. There is no focal parenchymal abnormality. There is no demonstrated pleural abnormality. Normal size heart. Normal mediastinum and angel. Normal visualized pulmonary arteries. There is atherosclerotic tortuosity of the aortic arch and descending thoracic aorta. Obscured thoracic spine. Normal visualized ribs, clavicles, and shoulders. There is no demonstrated abnormality of the visualized soft tissue structures of the upper abdomen. RAD/Chest 1 View (Portable) IMPRESSION: Component of COPD. There is no acute cardiopulmonary disease. There is no significant interval change. Electronically Signed: Savanah Colindres MD at 6:56 EDT , Service support , CC: Carlton Whitehead MD; Payam Ruvalcaba MD Stem Mounter: Signed COMPREHENSIVE METABOLIC Collected: 06/29/2018 Status: F [place] 4[place] AM [facility] [place] TYPE CODE TESTS RESULT OUT OF RANGE REFERENCE UNITS LAB L501.0100 74-106 mg/dL Normal GLU 88 Result Comment: Please note revised GLUCOSE reference range effective 2017. LAB L501.1000 7-18 mg/dL High BUN 54 LAB L501.1100 0.70-1.30 mg/dL High CREAT,SERUM 1.58 Result Comment: The validity of the calculated GFR AND GFRAA in patients over 70 years has not been determined. Clinical correlation is essential. LAB L501.1110 >60 mL/min Low EST GFR 46 Result Comment: Non- GFR Calc LAB L501.1115 >60 mL/min Low EST GFR - AA 56 Result Comment: GFR Calc LAB L501.1255 ml/min Normal Estimated CRCL 47.75 LAB L501.1300 10-20 RATIO High BUN/CRE 34.2 LAB L501.1500 6.4-8. g/dL Low 2 T PROT 4.9 LAB L501.1800 3.2-5. g/dL Low 0 ALB 2.4 LAB L501.1950 2.2-4. g/dL Normal 2 GLOB 2.5 LAB L501.2000 0.9-2. RATIO Normal 4 A/G 1.0 LAB L501.2200 8.5-10 mg/dL Low .1 CA 7.6 LAB L501.4100 15-37 U/L Normal AST 22 LAB L501.4305 45-117 U/L Low ALK P 38 LAB L501.4405 16-61 U/L Normal ALT 16 LAB L501.4600 0.20-1 mg/dL Normal .00 T BILI 0.30 LAB L501.5300 136-14 mmol/L High 5 NA 148 LAB L501.5600 3.5-5. mmol/L Normal 1 K 4.4 LAB L501.5900 98-107 mmol/L High CL 116 LAB L501.6100 21.0-3 mmol/L Normal 2.0 CO2 21.0 LAB L501.6200 5-15 Normal GAP 11 Performed By: #### L500.4050 #### [facility] [address] [place], [address] CBC W/DIFF, AUTOMATED Collected: 06/29/2018 Status: F Source: [place] 4:45 AM [facility] [place] TYPE CODE TESTS RESULT OUT OF RANGE REFERENCE UNITS LAB L100.1000 4.4-11.0 K/mm3 Normal WBC 5.7 LAB L100.1200 4.6-6.2 M/mm3 Low RBC 2.84 LAB L100.1300 13.0-16.5 g/dl Low HGB 8.9 LAB L100.1400 40-54 % Low HCT 27.2 LAB L100.1500 80-94 fL High MCV 95.8 LAB L100.1600 27.0-32.0 pg Normal MCH 31.3 LAB L100.1700 32-36 g/gl Normal MCHC 32.7 LAB L100.1810 11.6-14.6 % Normal RDW CV 13.7 LAB L100.1820 35.1-43.9 fl High RDW SD 45.2 LAB L100.1900 150-450 K/mm3 Low PLT 110 LAB L100.2000 6.2-12.0 fl Normal MPV 11.4 LAB L100.2100 47-70 % Normal NEUT% 59.3 LAB L100.2200 19-41 % Normal LY% 19.7 LAB L100.2300 0-10 % High MONO% 13.6 LAB L100.2400 0-5 % High EO% 6.5 LAB L100.2500 0-1 % Normal BASO% 0.4 LAB L100.2550 0.0-0.9 % Normal IM GRAN % 0.500 Result Comment: IG% - Immature Granulocytes (promyelocytes, myelocytes and metamyelocytes) > 1% indicates that a LEFT SHIFT is Present. LAB L100.2620 2.0-7.7 X10 3/uL Normal Absolute Neut 3.4 LAB L100.2720 0.83-4.51 X10 3/ul Normal Absolute Lymph 1.12 Performed By: #### L100.0100 #### [facility] [address] [place], [place], [address] BEDSIDE GLUCOSE Collected: 06/28/2018 Status: F Source: [place] 9:55 PM [facility] [place] TYPE CODE TESTS RESULT OUT OF RANGE REFERENCE UNITS LAB L501.080 70-110 mg/dL Normal BEDSIDE GLU 108 Result Comment: MANAGEMENT OF PATIENT CARE PER NURSING PROTOCOL Performed By: #### L501.080 #### [facility] Point of Care [address] [place] [address] BEDSIDE GLUCOSE Collected: 06/28/2018 Status: F Source: [place] 4:40 PM [facility] [place] TYPE CODE TESTS RESULT OUT OF RANGE REFERENCE UNITS LAB L501.080 70-110 mg/dL Normal BEDSIDE GLU 99 Result Comment: MANAGEMENT OF PATIENT CARE PER NURSING PROTOCOL Performed By: #### L501.080 #### [facility] Point of Care [address] [address] HH, HEMOGLOBIN AND Collected: 06/28/2018 Status: F Source: [place] HEMATOCRIT 2:00 PM [facility] [place] TYPE CODE TESTS RESULT OUT OF RANGE REFERENCE UNITS LAB L100.1300 13.0-16.5 g/dl Low HGB 9.2 LAB L100.1400 40-54 % Low HCT 27.7 Performed By: #### L100.0600 #### [facility] [address] BEDSIDE GLUCOSE Collected: 06/28/2018 Status: F Source: [place]EN 12:44 PM [facility] [place] TYPE CODE TESTS RESULT OUT OF RANGE REFERENCE UNITS LAB L501.080 70-110 mg/dL Normal BEDSIDE GLU 91 Result Comment: MANAGEMENT OF PATIENT CARE PER NURSING PROTOCOL Performed By: #### L501.080 #### [facility] Point [facility] Care [address] [place] [address] CONSULTATION Observed: 06/28/2018 Status: F Source: KIRSTEN 12:17 PM [facility] Medical Records [place] [address] Consultation 06/28/18 1209 MR#: [id number] Acct: [id number] Name: GIANA TANG Rep #: [id number] : 1950 68 From: Pop Stahl MD PCP: Payam Ruvalcaba MD Status: ADM IN Y Location: ICU ICU01-1 Problem List (1) Pneumobilia Status: Acute Reason for Consult Date of Consultation: 06/28/18 History of Present Illness: The patient is a 68 year old M, with past medical history significant for reported coronary artery disease, COPD, GERD, diet-controlled diabetes mellitus type 2, hypertension, hypercholesterolemia and nonrheumatic valvular disease, who presented to [facility] on 06/27/2018 following a syncopal event. Patient is unclear on total time of unconsciousness, but assumes it may have been 30 minutes or more. Patient had reportedly been walking to the restroom and passed out. Patient reportedly had no prodrome prior to passing out, but has noted some chills, shortness of breath, black stools and weakness over the last 2-3 days. On presentation to the emergency room, patient was noted to be 82% on room air with a systolic blood pressure of approximately 100. Patient reportedly does take Plavix at baseline, but no anticoagulant therapy. Patient denies any NSAID use at baseline. While in the emergency room, patient did have an ABG to confirm oxygenation. Patient was also noted to be in A. fib with RVR, which is reportedly new to the patient. On telemetry, patient was noted to have heart rates between 130 bpm and 160 bpm. There was some concern for torsades, so a magnesium infusion was ordered. Laboratory data showed an elevated BUN of 184 and a creatinine of 4.76. Patient was admitted to the intensive care unit for need of emergent hemodialysis. Patient reports he has had issues with BPH in the past, but is never had renal dysfunction that he is aware of. Patient denies any history of cardiac arrhythmias, but does have coronary artery disease and is on Plavix therapy at baseline. Patient does not report using supplemental oxygen at baseline. CT scan of his abdomen and pelvis was done secondary to his acute renal failure this showed: IMPRESSION: Pneumobilia. No gallstones. Calcifications within the kidneys but these are deemed to be vascular in origin. No acute appendicitis or diverticulitis Patient states that many years ago he underwent an upper endoscopy is unsure whether or not he had an ERCP at that time. Reviewing of the records does show that he did see Dr. Newberry in 2002. However I am unable to retrieve any of the medical records from the optical disc at this time. Past Medical History Past Medical History (Chronic Problems): Chronic Problems (Last Updated 12/20/17 @ 12:08 by Samanta Cabrera) Hypertension (Chronic) Peripheral vascular occlusive disease (Chronic) Type 2 diabetes mellitus without complications (Chronic) Non-rheumatic tricuspid valve insufficiency (Chronic) Nonrheumatic aortic valve insufficiency (Chronic) History of coronary artery stent placement (Chronic 01/05/03) Stent X 2 Mid LAD @ [facility] 01/05/2003, Atherosclerosis of coronary artery of tribe heart without angina pectoris (Chronic) Hyperlipidemia (Chronic) Medical History: Medical History (Last Reviewed 06/28/18 @ 12:15 by Pop Stahl MD) Hypertension (Chronic) I10 Peripheral vascular occlusive disease (Chronic) I73.9 Type 2 diabetes mellitus without complications (Chronic) E11.9 Non-rheumatic tricuspid valve insufficiency (Chronic) I36.1 Nonrheumatic aortic valve insufficiency (Chronic) I35.1 Atherosclerosis of coronary artery of tribe heart without angina pectoris (Chronic) I25.10 Hyperlipidemia (Chronic) E78.5 Agent orange exposure Z77.098 COPD (chronic obstructive pulmonary disease) J44.9 Carotid stenosis I65.29 Chronic fatigue disorder R53.82 Esophagitis K20.9 Allergies acetaminophen [From Darvocet-N] Allergy (Unknown, Verified 06/27/18 08:25) Unknown amitriptyline HCl [From Elavil] Allergy (Unknown, Verified 06/27/18 08:25) Unknown atorvastatin calcium [From Lipitor] Allergy (Unknown, Verified 06/27/18 08:25) Unknown azithromycin [From Zithromax] Allergy (Unknown, Verified 06/27/18 08:25) Unknown cefaclor [Cefaclor] Allergy (Unknown, Verified 06/27/18 08:25) Unknown ciprofloxacin [From Cipro] Allergy (Unknown, Verified 06/27/18 08:25) Unknown ciprofloxacin HCl [From Cipro] Allergy (Unknown, Verified 06/27/18 08:25) Unknown hydroxyzine HCl [From Atarax] Allergy (Unknown, Verified 06/27/18 08:25) Unknown influenza virus vaccine, specific [Influenza Virus Vacc,Specific] Allergy (Unknown, Verified 06/27/18 08:25) Unknown iodine Allergy (Unknown, Verified 06/27/18 08:25) Unknown latex Allergy (Unknown, Verified 06/27/18 08:25) Unknown levofloxacin [From Levaquin] Allergy (Unknown, Verified 06/27/18 08:25) Unknown lidocaine Allergy (Unknown, Verified 06/27/18 08:25) Unknown lovastatin Allergy (Unknown, Verified 06/27/18 08:25) Unknown niacin Allergy (Unknown, Verified 06/27/18 08:25) Unknown Penicillins Allergy (Unknown, Verified 06/27/18 08:25) Unknown pneumococcal vaccine [Pneumococcal Vaccine] Allergy (Unknown, Verified 06/27/18 08:25) Unknown propoxyphene napsylate [From Darvocet-N] Allergy (Unknown, Verified 06/27/18 08:25) Unknown quinapril HCl [From Accupril] Allergy (Unknown, Verified 06/27/18 08:25) Unknown red dye Allergy (Unknown, Verified 06/27/18 08:25) Unknown rosuvastatin calcium [From Crestor] Allergy (Unknown, Verified 06/27/18 08:25) Unknown simvastatin Allergy (Unknown, Verified 06/27/18 08:25) Unknown Sulfa (Sulfonamide Antibiotics) Allergy (Unknown, Verified 06/27/18 08:25) Unknown Tetanus Vaccines and Toxoid [Tetanus Vaccines AND Toxoid] Allergy (Unknown, Verified 06/27/18 08:25) Unknown tetracycline [Tetracycline] Allergy (Unknown, Verified 06/27/18 08:25) Unknown yellow dye Allergy (Unknown, Verified 06/27/18 08:25) Unknown fentanyl Allergy (Verified 06/27/18 16:12) Unknown hydrochlorothiazide Allergy (Verified 06/27/18 08:25) Unknown CREATINE MONOHYDRATE Allergy (Unknown, Uncoded 06/27/18 08:25) Unknown Home Medications: Ambulatory Orders Medication Instructions Recorded Surgical History: Surgical History (Last Reviewed 06/28/18 @ 12:15 by Pop Stahl MD) History of coronary artery stent placement (Chronic) Onset Date: 01/05/03 Z95.5 Stent X 2 Mid LAD @ [facility] 01/05/2003, History of right and left heart catheterization Onset Date: 02/18/15 Z98.890 Occluded RCA, Patent LAD Stents Surgical History: coronary artery stents Lives: Spouse/ Significant Other Smoking Status: Former smoker Alcohol: None Drugs: None - *Family History Paternal Family History: Family History (Last Updated 12/20/17 @ 12:09 by Samanta Cabrera) Father CAD (coronary artery disease) Mother CAD (coronary artery disease) Brother CAD (coronary artery disease) History Items: No pertinent history Maternal Family History: Family History (Last Updated 12/20/17 @ 12:09 by Samanta Cabrera) Father CAD (coronary artery disease) Mother CAD (coronary artery disease) Brother CAD (coronary artery disease) History Items: Heart Disease Review of Systems Gastrointestinal: Denies: Abdominal Pain, Constipation, Diarrhea, Hematemesis, Nausea, Melena, Vomiting Patient Problems: Active and Suspected Problems (Last Updated 12/20/17 @ 12:08 by Samanta Cabrera) Pneumobilia (Acute) Syncope (Acute) Atrial fibrillation with RVR (Acute) Hyperkalemia (Acute) Acute renal failure (Acute) - Physical Exam General: Alert, Oriented x3 Lungs: Clear to auscultation Cardiovascular: Regular rate, Regular Rhythm, No murmurs Abdomen: Bowel Sounds Present, Soft, Non Tender, Non-Distended Vital Signs Temp Pulse Resp BP Pulse Ox 98.2 F 72 15 121/49 H 100 06/28/18 10:00 06/28/18 11:42 06/28/18 11:00 06/28/18 11:44 06/28/18 11:00 Oxygen Flow Rate (L/min) 2 Oxygen Delivery Method Room Air Weight: 180 lb 15.992 oz Body Mass Index (BMI) 24.3 Intake and Output for Last 24 Hours Intake Total 3852.5 / 3852.5 2075.2 / 2075.2 Output Total 700 / 700 450 / 450 Balance 3152.5 / 3152.5 1625.2 / 1625.2 Laboratory Tests Past 24 Hrs WBC RBC Hgb Hct WBC RBC Hgb Hct MCV MCH MCHC RDW RDW Differential WBC RBC Hgb 11.6 L Hct 34.6 L MCV MCH MCHC RDW RDW Differential WBC RBC Hgb 11.2 L 10.0 L Hct 32.7 L 29.5 L MCV MCH MCHC RDW RDW Differential WBC 8.6 RBC 3.20 L Hgb 10.1 L Hct 29.7 L MCV 92.8 MCH 31.6 MCHC 34.0 RDW 13.3 RDW Differential 43.6 Plt Count 145 L POC Glucose POC Glucose 97 100 92 Assessment/Plan All Active Problems (Last Updated 12/20/17 @ 12:08 by Samanta Cabrera) Pneumobilia (Acute) Syncope (Acute) Atrial fibrillation with RVR (Acute) Hyperkalemia (Acute) Acute renal failure (Acute) At this point I have no endoscopic needs. I think it would be worth our while to try to find any old records that may shed light on whether or not he had an ERCP. If he did in his pneumobilia would not be that much of an finding secondary to his fall. Since he is completely asymptomatic and his gallbladder does not look like a potential source of the pneumobilia we will hold off on an upper endoscopy on him. 06/28/18 1217 <Electronically signed by Pop Stahl MD> Date Pop Stahl MD Cosigner Signature (if applicable): Date CC: Carlton Whitehead MD; Pop Palafox MD; Pop Stahl MD; Payam Ruvalcaba MD; Darren Steven MD Signed BEDSIDE GLUCOSE Collected: 06/28/2018 Status: F Source: [place] 8:03 AM [facility] [place] TYPE CODE TESTS RESULT OUT OF RANGE REFERENCE UNITS LAB L501.080 70-110 mg/dL Normal BEDSIDE GLU 97 Result Comment: MANAGEMENT OF PATIENT CARE PER NURSING PROTOCOL Performed By: #### L501.080 #### [facility] Point of Care [address] [place] [address] CONSULTATION Observed: 06/28/2018 Status: F Source: [place] 5:30 AM [facility] [place] [facility] Medical Records Department [address] [place] [address] Consultation 06/27/18 1111 MR#: [id number] Acct: [id number] Name: GIANA TANG Rep #: [id number] : 1950 68 From: Carlton Whitehead MD PCP: Payam Ruvalcaba MD Status: ADM IN Y Location: ICU ICU01-1 Problem List (1) Syncope Status: Acute (2) Atrial fibrillation with RVR Status: Acute (3) Hyperkalemia Status: Acute (4) Acute renal failure Status: Acute (5) Hypertension Status: Chronic (6) Peripheral vascular occlusive disease Status: Chronic (7) Type 2 diabetes mellitus without complications Status: Chronic (8) Non-rheumatic tricuspid valve insufficiency Status: Chronic (9) Nonrheumatic aortic valve insufficiency Status: Chronic (10) History of coronary artery stent placement Status: Chronic Comment: Stent X 2 Mid LAD @ [facility] 01/05/2003, (11) Atherosclerosis of coronary artery of tribe heart without angina pectoris Status: Chronic (12) Hyperlipidemia Status: Chronic Reason for Consult Date of Consultation: 06/27/18 Reason for Consultation: Acute renal failure History of Present Illness: The patient is a 68 year old M, with past medical history significant for reported coronary artery disease, COPD, GERD, diet-controlled diabetes mellitus type 2, hypertension, hypercholesterolemia and nonrheumatic valvular disease, who presented to [facility] on 06/27/2018 following a syncopal event. Patient is unclear on total time of unconsciousness, but assumes it may have been 30 minutes or more. Patient had reportedly been walking to the restroom and passed out. Patient reportedly had no prodrome prior to passing out, but has noted some chills, shortness of breath, black stools and weakness over the last 2-3 days. On presentation to the emergency room, patient was noted to be 82% on room air with a systolic blood pressure of approximately 100. Patient reportedly does take Plavix at baseline, but no anticoagulant therapy. Patient denies any NSAID use at baseline. While in the emergency room, patient did have an ABG to confirm oxygenation. Patient was also noted to be in A. fib with RVR, which is reportedly new to the patient. On telemetry, patient was noted to have heart rates between 130 bpm and 160 bpm. There was some concern for torsades, so a magnesium infusion was ordered. Laboratory data showed an elevated BUN of 184 and a creatinine of 4.76. Patient was admitted to the intensive care unit for need of emergent hemodialysis. Patient reports he has had issues with BPH in the past, but is never had renal dysfunction that he is aware of. Patient denies any history of cardiac arrhythmias, but does have coronary artery disease and is on Plavix therapy at baseline. Patient does not report using supplemental oxygen at baseline. Past Medical History Past Medical History (Chronic Problems): Chronic Problems (Last Updated 12/20/17 @ 12:08 by Samanta Cabrera) Hypertension (Chronic) Peripheral vascular occlusive disease (Chronic) Type 2 diabetes mellitus without complications (Chronic) Non-rheumatic tricuspid valve insufficiency (Chronic) Nonrheumatic aortic valve insufficiency (Chronic) History of coronary artery stent placement (Chronic 01/05/03) Stent X 2 Mid LAD @ [facility] 01/05/2003, Atherosclerosis of coronary artery of tribe heart without angina pectoris (Chronic) Hyperlipidemia (Chronic) Medical History: Medical History (Last Updated 12/20/17 @ 12:08 by Samanta Cabrera) Hypertension (Chronic) I10 Peripheral vascular occlusive disease (Chronic) I73.9 Type 2 diabetes mellitus without complications (Chronic) E11.9 Non-rheumatic tricuspid valve insufficiency (Chronic) I36.1 Nonrheumatic aortic valve insufficiency (Chronic) I35.1 Atherosclerosis of coronary artery of tribe heart without angina pectoris (Chronic) I25.10 Hyperlipidemia (Chronic) E78.5 Agent orange exposure Z77.098 COPD (chronic obstructive pulmonary disease) J44.9 Carotid stenosis I65.29 Chronic fatigue disorder R53.82 Esophagitis K20.9 Allergies acetaminophen [From Darvocet-N] Allergy (Unknown, Verified 06/27/18 08:25) Unknown amitriptyline HCl [From Elavil] Allergy (Unknown, Verified 06/27/18 08:25) Unknown atorvastatin calcium [From Lipitor] Allergy (Unknown, Verified 06/27/18 08:25) Unknown azithromycin [From Zithromax] Allergy (Unknown, Verified 06/27/18 08:25) Unknown cefaclor [Cefaclor] Allergy (Unknown, Verified 06/27/18 08:25) Unknown ciprofloxacin [From Cipro] Allergy (Unknown, Verified 06/27/18 08:25) Unknown ciprofloxacin HCl [From Cipro] Allergy (Unknown, Verified 06/27/18 08:25) Unknown hydroxyzine HCl [From Atarax] Allergy (Unknown, Verified 06/27/18 08:25) Unknown influenza virus vaccine, specific [Influenza Virus Vacc,Specific] Allergy (Unknown, Verified 06/27/18 08:25) Unknown iodine Allergy (Unknown, Verified 06/27/18 08:25) Unknown latex Allergy (Unknown, Verified 06/27/18 08:25) Unknown levofloxacin [From Levaquin] Allergy (Unknown, Verified 06/27/18 08:25) Unknown lidocaine Allergy (Unknown, Verified 06/27/18 08:25) Unknown lovastatin Allergy (Unknown, Verified 06/27/18 08:25) Unknown niacin Allergy (Unknown, Verified 06/27/18 08:25) Unknown Penicillins Allergy (Unknown, Verified 06/27/18 08:25) Unknown pneumococcal vaccine [Pneumococcal Vaccine] Allergy (Unknown, Verified 06/27/18 08:25) Unknown propoxyphene napsylate [From Darvocet-N] Allergy (Unknown, Verified 06/27/18 08:25) Unknown quinapril HCl [From Accupril] Allergy (Unknown, Verified 06/27/18 08:25) Unknown red dye Allergy (Unknown, Verified 06/27/18 08:25) Unknown rosuvastatin calcium [From Crestor] Allergy (Unknown, Verified 06/27/18 08:25) Unknown simvastatin Allergy (Unknown, Verified 06/27/18 08:25) Unknown Sulfa (Sulfonamide Antibiotics) Allergy (Unknown, Verified 06/27/18 08:25) Unknown Tetanus Vaccines and Toxoid [Tetanus Vaccines AND Toxoid] Allergy (Unknown, Verified 06/27/18 08:25) Unknown tetracycline [Tetracycline] Allergy (Unknown, Verified 06/27/18 08:25) Unknown yellow dye Allergy (Unknown, Verified 06/27/18 08:25) Unknown hydrochlorothiazide Allergy (Verified 06/27/18 08:25) Unknown CREATINE MONOHYDRATE Allergy (Unknown, Uncoded 06/27/18 08:25) Unknown Home Medications: Ambulatory Orders Medication Instructions Recorded Surgical History: Surgical History (Last Updated 12/20/17 @ 11:56 by Samanta Cabrera) History of coronary artery stent placement (Chronic) Onset Date: 01/05/03 Z95.5 Stent X 2 Mid LAD @ [facility] 01/05/2003, History of right and left heart catheterization Onset Date: 02/18/15 Z98.890 Occluded RCA, Patent LAD Stents Surgical History: coronary artery stents Smoking Status: Former smoker - *Family History Maternal Family History: Family History (Last Updated 12/20/17 @ 12:09 by Samanta Cabrera) Father CAD (coronary artery disease) Mother CAD (coronary artery disease) Brother CAD (coronary artery disease) History Items: Heart Disease Paternal Family History: Family History (Last Updated 12/20/17 @ 12:09 by Samanta Cabrera) Father CAD (coronary artery disease) Mother CAD (coronary artery disease) Brother CAD (coronary artery disease) History Items: No pertinent history Review of Systems Comment: See HPI, otherwise negative x10 systems. Patient Problems: Active and Suspected Problems (Last Updated 12/20/17 @ 12:08 by Samanta Cabrera) Syncope (Acute) Atrial fibrillation with RVR (Acute) Hyperkalemia (Acute) Acute renal failure (Acute) Objective: Chest x-ray was personally reviewed and shows no acute infiltrates. Pelvis x-ray shows no fracture. - Physical Exam General: Alert, Oriented x3, Cooperative, No apparent distress, - - Appears stated age. Extremely pale HEENT: Atraumatic, PERRLA, EOMI, Normocephalic, - - No scleral icterus or injection noted. Pale conjunctivae. Oral: No Gingival or Mucosal Lesions/ Ulcerations, Dry Mucosa Neck: Supple, No JVD, No Nodes, Trachea Midline Lungs: No rhonchi, No wheeze, No rales, Diminished, - - Symmetric expansion. No dullness to percussion. Cardiovascular: Normal S1, Normal S2, No murmurs, Irregular Rate, No rub noted, No Gallop, Tachycardic Abdomen: Bowel Sounds Present, Soft, Non Tender, Non-Distended Extremities: No cyanosis, No edema, No Calf Tenderness, Clubbing - Stage I Skin: No rashes, No breakdown Musculoskeletal: No Tenderness to Palpation of Joints or Extremities Lymphatic: No Cervical, Supraclavicular, or Inguinal Adenopathy Neurological: Cranial nerves II-XII grossly intact, Neuro grossly intact, Motor Exam 5/5 strength throughout Psych/Mental Status: Alert and oriented to time, place, person, mood and affect Vital Signs Temp Pulse Resp BP Pulse Ox 36.2 C L 123 H 16 138/111 H 100 06/27/18 08:20 06/27/18 10:30 06/27/18 10:30 06/27/18 10:30 06/27/18 10:37 Oxygen Flow Rate (L/min) 2 Oxygen Delivery Method Nasal Cannula Weight: 81.5 kg Body Mass Index (BMI) 24.3 Laboratory Tests WBC 10.6 RBC 4.24 L Hgb 13.4 Hct 39.3 L MCV 92.7 WBC RBC Hgb Hct MCV MCH MCHC RDW RDW Differential Plt Count MPV PT 13.6 INR 1.0 WBC RBC Hgb Hct MCV MCH MCHC RDW RDW Differential Plt Count MPV PT INR APTT Clinical Impression(s) from Imaging Studies Chest X-Ray 06/27/18 08:38 IMPRESSION: Hyperinflation. The lungs are clear. Electronically Signed: Blade Myles MD at 9:04 EDT Tel [phone], Service support , Pelvis X-Ray 06/27/18 08:45 IMPRESSION: No fracture is seen. Electronically Signed: Blade Myles MD at 9:03 EDT Tel [phone], Service support , Assessment/Plan Active and Suspected Problems (Last Updated 12/20/17 @ 12:08 by Samanta Cabrera) Syncope (Acute) Atrial fibrillation with RVR (Acute) Hyperkalemia (Acute) Acute renal failure (Acute) RECOMMENDATIONS: 1. Emergent dialysis after line placement 2. H AND H every 6 hours 3. Defibrillator pads in place for 24 hours 4. Obtain renal ultrasound 5. Wean oxygen as tolerated 6. Guaiac stool and Protonix twice daily if positive 7. Cycle troponins IMPRESSIONS: 1. Acute renal failure/hyperkalemia Unclear etiology at this time. Patient does have significantly elevated BUN indicating probable GI bleed. Personally discussed with nephrology. Patient will have a dialysis line placed and hemodialysis will be emergently initiated. Continue to monitor for hyperkalemia complications. Patient has received insulin, calcium and glucose. Patient also has a non-anion gap metabolic acidosis, which is likely also secondary to renal failure. Will hold on Kayexalate given hemodialysis is expected in the next hour or so. [facility] is reportedly on no doc call. ER attempted to reach them. Able to talk with Dr. Palomo by phone and is aware of the situation. 2. Probable acute upper GI bleed Patient is reporting 2-3 days of black stools. Patient does take aspirin, but no other NSAIDs are reported. Patient is on Plavix at baseline. Patient reportedly had brown stool in the ER. Will obtain a guaiac of the stool. If positive, PPI twice daily would be indicated initially. Patient would also need evaluation by general surgery for possible EGD. Current hemoglobin is acceptable, but will check H AND H's every 6 hours for the next 24 hours. 3. Non-anion gap metabolic acidosis Clinical suspicion for significant acidosis related to acute renal failure. Patient's lactate is within normal limits. Patient does have a slightly elevated anion gap. Patient appears to be tolerating increased respiratory demand well at this time. Will reassess following hemodialysis. 4. A. fib with RVR/coronary artery disease Cardiology has been consulted. Patient reportedly does not have a history of A. fib with RVR, but does have a history of stents. Clinical suspicion for A. fib with RVR secondary to electrolyte abnormalities. Will attempt to address these initially. Patient's blood pressure is marginal. Will attempt electrolyte correction prior to any Cardizem or other rate control options. Patient is on beta-becky at baseline. No anticoagulation secondary to concerns for upper GI bleed. 5. Syncopal event Multiple possible etiologies. Patient is in new onset atrial fibrillation with RVR. Patient did have some questionable torsades in the ER. Patient also has acute renal failure with electrolyte abnormalities. Patient does not have any focal neurologic deficits to suggest a stroke at this time. Cannot exclude a seizure, but patient does not have any bruising or tongue lesions to suggest seizure activity. 6. Acute hypoxic respiratory insufficiency Clinical suspicion for complications of acute renal failure leading to increased oxygen requirements. Will initiate on hemodialysis. Continue supplemental oxygen for now. Patient does have an echocardiogram ordered. Patient with reported history of COPD, but does not use inhaler therapy at home. Will attempt to avoid bronchodilators given patient's A. fib with RVR. 7. Reported BPH/advanced age/hypercholesterolemia/hypertension/diet- controlled diabetes mellitus/PVD Complicates care, management, recovery and prognosis. Will obtain a renal ultrasound to rule out postobstructive process. Sliding scale insulin should be sufficient. Hold Plavix secondary to possible upper GI bleed TIME: 55 minutes critical care time spent addressing patient's acute kidney injury, upper GI bleed, metabolic acidosis, respiratory insufficiency, review of all data and collaboration with care team (10 AM to 12 PM) Code Visit 9xxxx: [id number] Critical care first hour 06/28/18 0530 <Electronically signed by Carlton Whitehead MD> Date Carlton Whitehead MD Cosigner Signature (if applicable): Date CC: Carlton Whitehead MD; Pop Palafox MD; Payam Ruvalcaba MD; Darren Steven MD Signed CBC W/DIFF, AUTOMATED Collected: 06/28/2018 Status: F Source: [place] 4:20 AM [facility] [place] TYPE CODE TESTS RESULT OUT OF RANGE REFERENCE UNITS LAB L100.1000 4.4-11.0 K/mm3 Normal WBC 8.6 LAB L100.1200 4.6-6.2 M/mm3 Low RBC 3.20 LAB L100.1300 13.0-16.5 g/dl Low HGB 10.1 LAB L100.1400 40-54 % Low HCT 29.7 LAB L100.1500 80-94 fL Normal MCV 92.8 LAB L100.1600 27.0-32.0 pg Normal MCH 31.6 LAB L100.1700 32-36 g/gl Normal MCHC 34.0 LAB L100.1810 11.6-14.6 % Normal RDW CV 13.3 LAB L100.1820 35.1-43.9 fl Normal RDW SD 43.6 LAB L100.1900 150-450 K/mm3 Low PLT 145 LAB L100.2000 6.2-12.0 fl Normal MPV 11.6 LAB L100.2100 47-70 % Normal NEUT% 66.5 LAB L100.2200 19-41 % Low LY% 13.2 LAB L100.2300 0-10 % High MONO% 14.1 LAB L100.2400 0-5 % High EO% 5.2 LAB L100.2500 0-1 % Normal BASO% 0.2 LAB L100.2550 0.0-0.9 % Normal IM GRAN % 0.800 Result Comment: IG% - Immature Granulocytes (promyelocytes, myelocytes and metamyelocytes) > 1% indicates that a LEFT SHIFT is Present. LAB L100.2620 2.0-7.7 X10 3/uL Normal Absolute Neut 5.7 LAB L100.2720 0.83-4.51 X10 3/ul Normal Absolute Lymph 1.14 Performed By: #### L100.0100 #### [facility] [address] [place], [address] COMPREHENSIVE METABOLIC Collected: 06/28/2018 Status: F Source: [facility] 4:20 AM [facility] [place] TYPE CODE TESTS RESULT OUT OF RANGE REFERENCE UNITS LAB L501.0100 74-106 mg/dL Normal GLU 91 Result Comment: Please note revised GLUCOSE reference range effective 2017. LAB L501.1000 7-18 mg/dL High BUN 79 LAB L501.1100 0.70-1.30 mg/dL High CREAT,SERUM 2.13 Result Comment: The validity of the calculated GFR AND GFRAA in patients over 70 years has not been determined. Clinical correlation is essential. LAB L501.1110 >60 mL/min Low EST GFR 33 Result Comment: Non- GFR Calc LAB L501.1115 >60 mL/min Low EST GFR - AA 40 Result Comment: GFR Calc LAB L501.1255 ml/min Normal Estimated CRCL 35.42 LAB L501.1300 10-20 RATIO High BUN/CRE 37.1 LAB L501.1500 6.4-8. g/dL Low 2 T PROT 5.5 LAB L501.1800 3.2-5. g/dL Low 0 ALB 2.8 LAB L501.1950 2.2-4. g/dL Normal 2 GLOB 2.7 LAB L501.2000 0.9-2. RATIO Normal 4 A/G 1.0 LAB L501.2200 8.5-10 mg/dL Low .1 CA 7.7 LAB L501.4100 15-37 U/L Normal AST 24 LAB L501.4305 45-117 U/L Low ALK P 44 LAB L501.4405 16-61 U/L Normal ALT 20 LAB L501.4600 0.20-1 mg/dL Normal .00 T BILI 0.40 LAB L501.5300 136-14 mmol/L Normal 5 NA 143 LAB L501.5600 3.5-5. mmol/L Normal 1 K 4.3 LAB L501.5900 98-107 mmol/L High CL 108 LAB L501.6100 21.0-3 mmol/L Normal 2.0 CO2 21.0 LAB L501.6200 5-15 Normal GAP 14 Performed By: #### L500.4050 #### [facility] [address] [facility] [place], [address] HH, HEMOGLOBIN AND Collected: 06/27/2018 Status: F Source: [facility] 10:40 PM [facility] [place] TYPE CODE TESTS RESULT OUT OF RANGE REFERENCE UNITS LAB L100.1300 13.0-16.5 g/dl Low HGB 10.0 LAB L100.1400 40-54 % Low HCT 29.5 Performed By: #### L100.0600 #### [facility] [place], [address] BEDSIDE GLUCOSE Collected: 06/27/2018 Status: F Source: [place] 9:35 PM [facility] [place] TYPE CODE TESTS RESULT OUT OF RANGE REFERENCE UNITS LAB L501.080 70-110 mg/dL Normal BEDSIDE GLU 100 Result Comment: MANAGEMENT OF PATIENT CARE PER NURSING PROTOCOL Performed By: #### L501.080 #### [facility] Point of Care [address] [place] [address] OPERATIVE REPORT Observed: 06/27/2018 Status: F Source: [place] 7:13 PM [facility] [place] [facility] Medical Records Department [address] [place], [place] [address] [place] [address] Operative Report 06/27/18 1910 MR#: [id number] Acct: [id number] Name: GIANA TANG Rep #: [id number] : 1950 68 From: Jonel Hassan DO PCP: Payam Ruvalcaba MD Status: ADM IN Y Location: ICU ICU01-1 Problem List (1) Atrial fibrillation with RVR Status: Acute Operative Report Date of Procedure: 06/27/18 Procedure is synchronized direct current cardioversion Indication is atrial fibrillation with RVR and hypotension I discussed procedures and risks with the patient and agreed to proceed Procedure: Patient was sedated with 4 mg etomidate. With 200 J and in sync patient was cardioverted to a normal sinus rhythm. Patient tolerated the procedure well but did have a gasp when he was shocked but then quickly dozed off again. Code Visit 92xxx-93xxx: 24649 Cardioversion electric ext 06/27/181912 <Electronically signed by Jonel Hassan DO> Date Jonel Hassan DO CC: Carlton Whitehead MD; Pop Palafox MD; Jonel Hassan DO; Payam Ruvalcaba MD; Darren Steven MD Signed BLOOD GASES BY CPS Collected: 06/27/2018 Status: F Source: [place] 6:42 PM [facility] [place] TYPE CODE TESTS RESULT OUT OF RANGE REFERENCE UNITS LAB L9000.9990 Normal BLD GAS TYPE ART LAB L9001.1000 Normal SITE L Radial LAB L9001.1010 Normal SAE TEST NA LAB L9001.1050 O2 Normal Delivery Dev Room Air LAB L9001.1104 Normal Results To ICU LAB L9001.1105 Normal Time Given 1838 LAB L9001.1110 7.35-7.45 High pH - I-STAT 7.50 LAB L9001.1210 35-45 mmHg Low pCO2 - ISTAT 24.0 LAB L9001.1310 75-100 mmHG Normal PO2 I-STAT 95 LAB L9001.2300 22-26 mmol/L Low HCO3 ISTAT 18.8 LAB L9001.2400 -2 to +2 mmol/L Low BE ISTAT -4 LAB L9001.2415 mmol/L Normal TOTAL CO2 19 ISTAT LAB L9001.2425 95-99 % Normal SO2 ISTAT 98 Performed By: #### L9000.0800 #### [facility] [address] [place] [address] HH, HEMOGLOBIN AND Collected: 06/27/2018 Status: F Source: [place] [facility] 6:10 PM [facility] [place] TYPE CODE TESTS RESULT OUT OF RANGE REFERENCE UNITS LAB L100.1300 13.0-16.5 g/dl Low HGB 11.2 LAB L100.1400 40-54 % Low HCT 32.7 Performed By: #### L100.0600 #### [facility] [address] [place], [address] BASIC METABOLIC Collected: 06/27/2018 Status: F Source: [place] PROFILE (BMP) 6:10 PM [facility] [place] Order Comment: 'TROP' Serial specimen #1, #2 or #3: 3 'TROP' Serial specimen #1, #2, #3, or #4: 3 TYPE CODE TESTS RESULT OUT OF RANGE REFERENCE UNITS LAB L501.0100 74-106 mg/dL High GLU 123 Result Comment: Fasting Glucose result from 100 to 125 mg/dL suggests IMPAIRED HOMEOSTASIS per A.D.A. criteria. Please note revised GLUCOSE reference range effective 2017. LAB L501.1000 7-18 mg/dL High BUN 85 LAB L501.1100 0.70-1.30 mg/dL High CREAT,SERUM 2.05 Result Comment: The validity of the calculated GFR AND GFRAA in patients over 70 years has not been determined. Clinical correlation is essential. LAB L501.1110 >60 mL/min Low EST GFR 34 Result Comment: Non- GFR Calc LAB L501.1115 >60 mL/min Low EST GFR - AA 41 Result Comment: GFR Calc LAB L501.1255 ml/min Normal Estimated CRCL 36.80 LAB L501.1300 10-20 RATIO High BUN/CRE 41.5 LAB L501.2200 8.5-10 mg/dL Low .1 CA 7.5 LAB L501.5300 136-14 mmol/L Normal 5 NA 138 LAB L501.5600 3.5-5. mmol/L Normal 1 K 4.0 LAB L501.5900 98-107 mmol/L Normal CL 104 LAB L501.6100 21.0-3 mmol/L Normal 2.0 CO2 21.0 LAB L501.6200 5-15 Normal GAP 13 Performed By: #### L500.2500, L501.4010 #### [facility] [address] [place], [address] TROPONIN-I Collected: 06/27/2018 Status: F Source: [place] 6:10 PM [facility] [place] Order Comment: 'TROP' Serial specimen #1, #2 or #3: 3 'TROP' Serial specimen #1, #2, #3, or #4: 3 TYPE CODE TESTS RESULT OUT OF RANGE REFERENCE UNITS LAB L501.4010 <0.045 ng/mL High 0.175 TROPONIN-I Result Comment: TROPONIN-I EXPECTED VALUES <0.045 Negative 0.045 - 0.590 Consistent with Cardiac Damage > OR = 0.600 Critical Value Not every elevated troponin is indicative of SD. These values should be used with clinical judgement in examining the patient's clinical picture for diagnosis. To establish a diagnosis of SD versus myocardial injury, there must be a demonstrated rise and/or fall in the troponin values, in addition to ischemic symptoms, EKG changes, new regional wall motion abnormality, and/or angiographical evidence. PLEASE NOTE: REFERENCE RANGES EDITED 18 Performed By: #### L500.2500, L501.4010 #### [facility] [address] [place], [address] VENOUS DUPLEX LOWER Observed: 06/27/2018 Status: F Source: [place] EXTREMITY 5:20 PM [facility] [place] [facility] Cardiovascular Services [address] [place] [address] Venous Duplex US, Unilateral 06/27/18 0937 MR#: [id number] Acct: [id number] Name: OSCAR TANGLASHAY Pillai Rep #: [id number] : 1950 68 From: Zohaib Segovia MD Attending Dr: Merced Cox Status: ADM IN Ordering Dr: Tye Huggins MD Date: 06/27/18 Location: ICU Sex: M C Admitted: 06/27/18 Reason For Study: SWELLING RIGHT GSV is normal. CFV is compressible, spontaneous, phasic, competent and demonstrates normal augmentation. FV is compressible, spontaneous, phasic, competent and demonstrates normal augmentation. POP V is compressible, spontaneous, phasic, competent and demonstrates normal augmentation. T/P Trunk is compressible. PTV is compressible. RT PerV is compressible. Rt GSV almanzar are very thickened. Interpretation Summary There is no evidence of right lower extremity deep vein thrombosis. Thickened almanzar of the right great saphenous vein suggesting chronic superficial thrombophlebitis. Clinical correlation would be appropriate. Ordering Physician: Tye Huggins Referring Physician: PAYAM RUVALCABA Performed By: Irina Haddad, LAZARO, RVT 06/27/18 1720 Date Zohaib Segovia MD CC: Merced Cox; Payam Ruvalcaba MD; Tye Huggins MD Date Dictated: 06/27/1837 Date Transcribed: 06/27/181719 Stem Mounter: Signed BEDSIDE GLUCOSE Collected: 06/27/2018 Status: F Source: [place] 4:55 PM [facility] [place] TYPE CODE TESTS RESULT OUT OF RANGE REFERENCE UNITS LAB L501.080 70-110 mg/dL Normal BEDSIDE GLU 92 Result Comment: MANAGEMENT OF PATIENT CARE PER NURSING PROTOCOL Performed By: #### L501.080 #### [facility] Point [facility] Care [address] [place] [address] CONSULTATION Observed: 06/27/2018 Status: F Source: [place] 4:00 PM [facility] [place] [facility] Medical Records Department [address] [place] [address] Consultation 06/27/18 1531 MR#: [id number] Acct: [id number] Name: IGANA TANG Rep #: [id number] : 1950 68 From: Darren Steven MD PCP: Payam Ruvalcaba MD Status: ADM IN Y Location: ICU ICU01-1 Consultation - Renal 06/27/18 PCP/ Referring MD: Requesting physician: Dr. Whitehead Primary care physician: Payam Ruvalcaba MD - History of Present Illness History of Present Illness: The patient is a 68 year old M with past history of CAD (s/p PCI), HTN, HPL, T2DM, GERD, and COPD. The pt presents with a 3 weeks history of progressive weakness. The pt s/p syncopal episode this am. Unclear how long the pt was passed out for. The pt is found to have new onset atrial fib with RVR. He was also found to have SCr of 4.76 mg/dL. K is 7.1. The most recent SCr prior to this admit was from August 2017 at 1.03 mg/dL. The pt denies CP, SOB at rest. He has occasional nausea but no vomiting. There is no edema. The pt does complain of incomplete emptying of the bladder. He also has progressively weak urinary stream in the past 6 months. No fever, chill or dysuria. Pt also reported 2-3 days of melena prior to admit as well. - Allergies Allergies: Allergies acetaminophen [From Darvocet-N] Allergy (Unknown, Verified 06/27/18 08:25) Unknown amitriptyline HCl [From Elavil] Allergy (Unknown, Verified 06/27/18 08:25) Unknown atorvastatin calcium [From Lipitor] Allergy (Unknown, Verified 06/27/18 08:25) Unknown azithromycin [From Zithromax] Allergy (Unknown, Verified 06/27/18 08:25) Unknown cefaclor [Cefaclor] Allergy (Unknown, Verified 06/27/18 08:25) Unknown ciprofloxacin [From Cipro] Allergy (Unknown, Verified 06/27/18 08:25) Unknown ciprofloxacin HCl [From Cipro] Allergy (Unknown, Verified 06/27/18 08:25) Unknown hydroxyzine HCl [From Atarax] Allergy (Unknown, Verified 06/27/18 08:25) Unknown influenza virus vaccine, specific [Influenza Virus Vacc,Specific] Allergy (Unknown, Verified 06/27/18 08:25) Unknown iodine Allergy (Unknown, Verified 06/27/18 08:25) Unknown latex Allergy (Unknown, Verified 06/27/18 08:25) Unknown levofloxacin [From Levaquin] Allergy (Unknown, Verified 06/27/18 08:25) Unknown lidocaine Allergy (Unknown, Verified 06/27/18 08:25) Unknown lovastatin Allergy (Unknown, Verified 06/27/18 08:25) Unknown niacin Allergy (Unknown, Verified 06/27/18 08:25) Unknown Penicillins Allergy (Unknown, Verified 06/27/18 08:25) Unknown pneumococcal vaccine [Pneumococcal Vaccine] Allergy (Unknown, Verified 06/27/18 08:25) Unknown propoxyphene napsylate [From Darvocet-N] Allergy (Unknown, Verified 06/27/18 08:25) Unknown quinapril HCl [From Accupril] Allergy (Unknown, Verified 06/27/18 08:25) Unknown red dye Allergy (Unknown, Verified 06/27/18 08:25) Unknown rosuvastatin calcium [From Crestor] Allergy (Unknown, Verified 06/27/18 08:25) Unknown simvastatin Allergy (Unknown, Verified 06/27/18 08:25) Unknown Sulfa (Sulfonamide Antibiotics) Allergy (Unknown, Verified 06/27/18 08:25) Unknown Tetanus Vaccines and Toxoid [Tetanus Vaccines AND Toxoid] Allergy (Unknown, Verified 06/27/18 08:25) Unknown tetracycline [Tetracycline] Allergy (Unknown, Verified 06/27/18 08:25) Unknown yellow dye Allergy (Unknown, Verified 06/27/18 08:25) Unknown hydrochlorothiazide Allergy (Verified 06/27/18 08:25) Unknown CREATINE MONOHYDRATE Allergy (Unknown, Uncoded 06/27/18 08:25) Unknown - Current Medications Current Medications: Current Medications Acetaminophen (Tylenol) 650 mg PO Q6H PRN PRN PRN Reason: Fever, headache, pain Albuterol Sulfate (Ventolin Aerosols) 2.5 mg INHALATION Q4H PRN PRN PRN Reason: Shortness of breath, wheezing Sodium Chloride () 1,000 mls @ 150 mls/hr IV .Q6H40M GLYNN Last Admin: 06/27/18 12:33 Dose: Not Given Pantoprazole Sodium 40 mg/ (Sodium Chloride) 110 mls @ 330 mls/hr IV Q12 [facility] Last Admin: 06/27/18 14:14 Dose: 330 mls/hr Insulin Human Lispro (Humalog Lyndapen (Bkc)) 0 unit SC ACHS GLYNN PRN Reason: Protocol Magnesium Hydroxide (Milk Of Magnesia) 30 ml PO DAILY PRN PRN Reason: Constipation Ondansetron HCl (Zofran) 4 mg IV Q6H PRN PRN PRN Reason: NAUSEA/VOMITING Sodium Chloride () 5 - 30 ml IV UD PRN PRN Reason: SALINE FLUSH Last Admin: 06/27/18 12:38 Dose: 20 ml - Past Medical History Past Medical History (Chronic Problems): Chronic Problems (Last Updated 12/20/17 @ 12:08 by Samanta Cabrera) Hypertension (Chronic) Peripheral vascular occlusive disease (Chronic) Type 2 diabetes mellitus without complications (Chronic) Non-rheumatic tricuspid valve insufficiency (Chronic) Nonrheumatic aortic valve insufficiency (Chronic) History of coronary artery stent placement (Chronic 01/05/03) Stent X 2 Mid LAD @ [place] 01/05/2003, Atherosclerosis of coronary artery of tribe heart without angina pectoris (Chronic) Hyperlipidemia (Chronic) - Past Surgical History Surgical History: coronary artery stents - Social History Smoking Status: Former smoker Alcohol: None Drugs: None - Family History Paternal Family History: Family History (Last Updated 12/20/17 @ 12:09 by Samanta Cabrera) Father CAD (coronary artery disease) Mother CAD (coronary artery disease) Brother CAD (coronary artery disease) History Items: No pertinent history Maternal Family History: Family History (Last Updated 12/20/17 @ 12:09 by Samanta Cabrera) Father CAD (coronary artery disease) Mother CAD (coronary artery disease) Brother CAD (coronary artery disease) History Items: Heart Disease Review of Systems Constitutional: Reports: Malaise, Weakness. Denies: Anorexia, Chills, Fever Eyes: Denies: Blurred vision, Cataracts, Pain, Redness HEENT: Denies: Head Aches, Sinus Congestion, Sinus Drainage Cardiovascular: Reports: Light Headedness, Palpitations, Syncope. Denies: Chest Pain, Chest Pressure, Chest Tightness, Edema Respiratory: Reports: Shortness of breath upon exertion. Denies: Cough, Hemoptysis, Pleuritic Pain, Sputum production Gastrointestinal: Denies: Abdominal Pain, Nausea, Vomiting Genitourinary: Reports: Hesitancy. Denies: Dysuria, Hematuria Musculoskeletal: Denies: Joint Pain, Joint Tenderness Skin: Denies: Rash, Wounds Psychiatric: Denies: Anxiety, Depression, Homicidal Ideations, Suicidal Ideations Hematologic/ Lymphatic: Denies: Easy Bruising, Easy Bleeding Patient Problems: Active and Suspected Problems (Last Updated 12/20/17 @ 12:08 by Samanta Cabrera) Syncope (Acute) Atrial fibrillation with RVR (Acute) Hyperkalemia (Acute) Acute renal failure (Acute) - Physical Exam General: Alert, Oriented x3 HEENT: Atraumatic, TM's Clear Oral: Dry Mucosa Neck: Supple, No JVD Lungs: Clear to auscultation Cardiovascular: No murmurs, Irregular Rate, Tachycardic Abdomen: Bowel Sounds Present, Soft, Non Tender, Non-Distended Extremities: No clubbing, No cyanosis, No edema Skin: No rashes Musculoskeletal: No Tenderness to Palpation of Joints or Extremities Lymphatic: No Cervical, Supraclavicular, or Inguinal Adenopathy Neurological: Cranial nerves II-XII grossly intact Psych/Mental Status: Normal Affect Vital Signs Temp Pulse Resp BP Pulse Ox 97.8 F 160 H 18 99/69 100 06/27/18 14:47 06/27/18 15:00 06/27/18 15:00 06/27/18 15:00 06/27/18 15:00 Oxygen Flow Rate (L/min) 2 Oxygen Delivery Method Nasal Cannula Weight: 81.5 kg Body Mass Index (BMI) 24.3 Laboratory Tests Past 24 Hrs Hgb Hct Sodium Potassium Chloride Carbon Dioxide Hgb 11.9 L Assessment/Plan All Active Problems (Last Updated 12/20/17 @ 12:08 by Samanta Cabrera) Syncope (Acute) Atrial fibrillation with RVR (Acute) Hyperkalemia (Acute) Acute renal failure (Acute) 1. Acute kidney injury. Baseline SCr 1.03 mg/dL (August 2017). BLAYNE is likely due to prerenal azotemia or ischemic ATN from volume depletion. Pt has been on losartan and spironolactone which likely worsened renal function. Agree with IVF for volume repletion. Stop ARB and spironolactone. Check urine indices. Will dialyze because of hyperkalemia, especially with dysrhythmia. Check renal US to evaluate for obstruction. Agree with Solorzano given history of lower urinary tract symptoms. Reassess renal function in am. Meds are reviewed. 2. Hyperkalemia. K is 7.1. This is 2/2 BLAYNE along with concurrent use of ARB and aldosterone antagonist. Will dialyze today. Recheck K in am. 3. Metabolic acidosis. Should improve with dialysis. Recheck HCO3 in am. 4. HTN. History of HTN. Currently hypotensive. Hold BP meds. Give fluid. 06/27/18 1600 <Electronically signed by Darren Steven MD> Date Darren Steven MD Cosigner Signature (if applicable): Date CC: Carlton Whitehead MD; Pop Palafox MD; Payam Ruvalcaba MD; Darren Steven MD Signed OPERATIVE REPORT Observed: 06/27/2018 Status: F Source: [place] 3:32 PM [facility] [place] [facility] Medical Records Department [address] [place] [id number] Operative Report 06/27/18 1522 MR#: [id number] Acct: [id number] Name: GIANA TANG Rep #: [id number] : 1950 68 From: Marie IRWIN PCP: Payam Ruvalcaba MD Status: ADM IN Y Location: ICU ICU01-1 Operative Report Date of Procedure: 06/27/18 - Dialysis catheter insertion Temporary dialysis catheter placement procedure note Indication: Hemodialysis Procedure: A time-out was completed to verify correct patient, indication, medication allergies, procedure, coagulation studies, informed consent signed, and equipment needed. The patient was placed in the supine position for a central line placement to the rt IJ vein. The patients rt neck was prepped using chlorhexidine and a full body sterile drape was applied. Subcutaneous Benadryl was used to anesthetize the surrounding skin. Unsuccessful at cannulating the vein at the IJ site. Prepared right groin for a femoral line placement. Same sterile technique used to prepare the site, including draping. Sub-continues Benadryl used to anesthetize the site. A 12fr 20 cm temporary dialysis catheter introduced into the internal right common femoral vein using the modified Seldinger technique with the assistance of ultrasound. Site was dilated twice in a stepwise fashion. The catheter was threaded smoothly over the guidewire, the guidewire was removed easily, nonpulsatile blood returned. All ports were aspirated of air and flushed with sterile saline. The catheter was sutured in place and covered with an occlusive dressing impregnated with chlorhexidine. Post-procedure: The patient tolerated the procedure well. Vital signs remained stable. EBL 10 cc. No complications. Chest x-ray ordered to rule out pneumothorax from the IJ procedure, confirmed no pneumothorax. Femoral line is ready for use. Code Visit Procedures: 54610 Insert Non-tunnel CV Cath 06/27/18 1532 <Electronically signed by Marie ORTIZC> Date Marie IRWIN CC: Carlton Whitehead MD; Marie Ruiz; Pop Palafox MD; Payam Ruvalcaba MD; Darren Steven MD Signed ECHOCARDIOGRAM COMPLETE Observed: 06/27/2018 Status: F Source: [place] 3:11 PM [facility] [place] [facility] Cardiovascular Services [address] [place] [address] Echo Complete 06/27/18 1409 MR#: [id number] Acct: [id number] Name: GIANA TANG Rep #: [id number] : 1950 68 From: Pop Palafox MD Attending Dr: Merced Cox Status: ADM IN Ordering Dr: Merced Cox MD Date: 06/27/18 Location: ICU Sex: M C Admitted: 06/27/18 Reason For Study: HTN Procedure This was a 2D Doppler, Color Flow transthoracic echocardiogram. Technically difficult study due to increased heart rate. Patient had a very hard time staying still and laying on left side. Exam performed portable in ICU/CCU. Left Ventricle Normal size and thickness. The estimated ejection fraction is 75 %. Septal motion consistent with IVCD. No regional wall motion abnormalities noted. Right Ventricle Normal size and thickness. Normal systolic function. Atria Normal left atrium. Normal right atrium. Normal atrial septum. Mitral Valve Mild diffuse mitral valve thickening. Trivial mitral valve insufficiency. Tricuspid Valve Normal tricuspid valve. Unable to estimate RV systolic pressure/pulmonary artery pressure due to technically difficult study. Aortic Valve Trisinus/trileaflet aortic valve. Moderate focal aortic valve thickening. Mild aortic stenosis. Mild (1+) aortic valve insufficiency. Pulmonic Valve The pulmonic valve is not well visualized. Great Vessels Normal aortic root. Mild atherosclerosis of the aortic arch. Normal inferior vena cava. Inferior vena cava collapse with sniff. Pericardium/Pleural No pericardial effusion. MMode/2D Measurements AND Calculations LVIDd: 3.7 cm IVSd: 1.3 cm LVOT diam: 2.0 cm LVIDs: 2.2 cm LVPWd: 0.92 cm LVOT area: 3.1 cm2 RVDd: 3.2 cm FS: 40.3 % Ao root diam: 3.2 cm LA dimension: 3.4 cm Time Measurements MV dec time: 0.14 sec Doppler Measurements AND Calculations MV E max daxa: 90.3 cm/sec Med Peak E' Daxa: 6.9 cm/sec Ao V2 max: 165.3 cm/sec MV A max daxa: 57.1 cm/sec E/E' med: 13.1 Ao max P.9 mmHg MV E/A: 1.6 Ao V2 mean: 88.5 cm/sec Ao mean P.1 mmHg Ao V2 VTI: 17.5 cm ERICA(I,D): 2.6 cm2 ERICA(V,D): 2.4 cm2 LV V1 max: 128.0 cm/sec SV(LVOT): 45.8 ml PA V2 max: 88.3 cm/sec LV V1 max P.6 mmHg LV V1 mean P.7 mmHg LV V1 mean: 72.8 cm/sec LV V1 VTI: 14.6 cm Interpretation Summary The estimated ejection fraction is 75 %. Mild (1+) aortic valve insufficiency. Mild aortic stenosis. Compared to echo report dated 02/18/2015, no appreciable changes noted. Ordering Physician: Merced Cox Referring Physician: PAYAM RUVALCABA Performed By: Shay Negrete RCS 06/27/18 598 Date Pop Palafox MD CC: Merced Cox; Payam Ruvalcaba MD Date Dictated: 06/27/18 1409 Date Transcribed: 06/27/18 880 Stem Mounter: Signed HH, HEMOGLOBIN AND Collected: 06/27/2018 Status: F Source: K[place]EN HEMATOCRIT 3:10 PM [facility] [place] TYPE CODE TESTS RESULT OUT OF RANGE REFERENCE UNITS LAB L100.1300 13.0-16.5 g/dl Low HGB 11.6 LAB L100.1400 40-54 % Low HCT 34.6 Performed By: #### L100.0600 #### [facility] [address], [address] TROPONIN-I Collected: 06/27/2018 Status: F Source: [place] 3:10 PM [facility] [place] [facility] Order Comment: 'TROP' Serial specimen #1, #2 or #3: 2 TYPE CODE TESTS RESULT OUT OF RANGE REFERENCE UNITS LAB L501.4010 <0.045 ng/mL High 0.155 TROPONIN-I Result Comment: TROPONIN-I EXPECTED VALUES <0.045 Negative 0.045 - 0.590 Consistent with Cardiac Damage > OR = 0.600 Critical Value Not every elevated troponin is indicative of SD. These values should be used with clinical judgement in examining the patient's clinical picture for diagnosis. To establish a diagnosis of SD versus myocardial injury, there must be a demonstrated rise and/or fall in the troponin values, in addition to ischemic symptoms, EKG changes, new regional wall motion abnormality, and/or angiographical evidence. PLEASE NOTE: REFERENCE RANGES EDITED 18 Performed By: #### L501.4010 #### [facility] [address] [facility] [place], [address] BASIC METABOLIC Collected: 06/27/2018 Status: F Source: [place] PROFILE (BMP) 3:10 PM [facility] [place] [facility] TYPE CODE TESTS RESULT OUT OF RANGE REFERENCE UNITS LAB L501.0100 74-106 mg/dL Normal GLU 94 Result Comment: Please note revised GLUCOSE reference range effective 2017. LAB L501.1000 7-18 mg/dL High alert BUN 156 Result Comment: Critical Result(s) Called at: 15:48:47 06/27/2018 by: Nalini Otoole to [facility] LAB L501.1100 0.70-1.30 mg/dL CREAT,SERUM High 3.62 Result Comment: The validity of the calculated GFR AND GFRAA in patients over 70 years has not been determined. Clinical correlation is essential. LAB L501.1110 >60 mL/min Low EST GFR 18 Result Comment: Non- GFR Calc LAB L501.1115 >60 mL/min Low EST GFR - AA 22 Result Comment: GFR Calc LAB L501.1255 ml/min Normal Estimated CRCL 20.84 LAB L501.1300 10-20 RATIO High BUN/CRE 43.1 LAB L501.2200 8.5-10 mg/dL Normal .1 CA 8.5 LAB L501.5300 136-14 mmol/L High 5 NA 146 LAB L501.5600 3.5-5. mmol/L High 1 K 5.7 LAB L501.5900 98-107 mmol/L High CL 119 LAB L501.6100 21.0-3 mmol/L Low 2.0 CO2 12.0 LAB L501.6200 5-15 Normal GAP 15 Performed By: #### L500.2500 #### [facility] [address] [facility] [place], [address] CONSULTATION Observed: 06/27/2018 Status: F Source: [place] 2:48 PM [facility] [place] [facility] Medical Records Department [address] [place] [address] Consultation 06/27/18 1432 MR#: [id number] Acct: [id number] Name: GIANA TANG Rep #: [id number] : 1950 68 From: Pop Palafox MD PCP: Payam Ruvalcaba MD Status: ADM IN Y Location: ICU ICU01-1 Problem List (1) Atrial fibrillation with RVR Status: Acute (2) Hyperkalemia Status: Acute (3) Hypertension Status: Chronic (4) History of coronary artery stent placement Status: Chronic Comment: Stent X 2 Mid LAD @ [place] 01/05/2003, (5) Atherosclerosis of coronary artery of tribe heart without angina pectoris Status: Chronic (6) Hyperlipidemia Status: Chronic Reason for Consult Date of Consultation: 06/27/18 Reason for Consultation: Coronary artery disease, hypertension, hypercholesterolemia, acute renal failure, atrial fibrillation History of Present Illness: The patient is a 68 year old M, patient of Dr. Palafox'claribel, with a history of hypertension, hypercholesterolemia, coronary artery disease status post stents x2 to the mid LAD in 2002 at [facility]. He has a known history of carotid artery disease and his last ultrasound to my knowledge was 10/24/15 which demonstrated greater than 70% stenosis in his left internal carotid and moderate 50-69% stenosis in his right internal carotid. Patient sees Dr. Teto Millan for this. Patient's most recent echocardiogram to my knowledge was 02/18/15 which demonstrated an ejection fraction of 65%, mild MR, mild aortic stenosis. He had a repeat catheterization dated 02/18/15 which demonstrated an occluded right coronary artery, adequate left right collaterals, possibly significant mid LAD stenosis at a tortuous juncture of the mid LAD, widely patent stents in the midportion of the LAD, 70% stenosis in a small obtuse marginal #3 branch which did not appear to be significant enough or amenable to PCI and normal LV function with elevated EDP and normal right-sided pressures. He also was found to have moderately centrally directed aortic insufficiency by aortic angiogram. As best I can tell the patient began deteriorating approximately 2 weeks ago and is gotten worse over the last 3 days. Patient reported fatigue, shortness of breath, which culminated into decreased urine output over the last 3 days. When his symptoms did not improve, he sought medical attention at [facility] ER where he was found to have sinus tachycardia alternating with atrial fibrillation with rapid ventricular response. In addition he was found to be hypotensive, and acute renal failure with a BUN and creatinine of 184 and 4.7 respectively. He was also found to be hyperkalemic with a potassium of 7.1. His initial troponin was 0.129 and decreased to 0.127. The patient denies his palpitations, and denies any chest pain, angina but does complain of weakness and shortness of breath. He cannot detect when he is in atrial fibrillation. He is on aspirin and Plavix but no anticoagulation therapy. Of note as well the patient has had a history of falls in the past, culminating in a massive head trauma in July 2016 after falling off a ladder. Patient has had several times for placement of a central line catheter for urgent hemodialysis without success given his dehydration. The patient is currently undergoing rehydration with IV therapy in order to place his Cam catheter. [] Past Medical History Allergies/Adverse Reactions: Allergies acetaminophen [From Darvocet-N] Allergy (Unknown, Verified 06/27/18 08:25) Unknown amitriptyline HCl [From Elavil] Allergy (Unknown, Verified 06/27/18 08:25) Unknown atorvastatin calcium [From Lipitor] Allergy (Unknown, Verified 08/24/18 08:25) Unknown azithromycin [From Zithromax] Allergy (Unknown, Verified 06/27/18 08:25) Unknown cefaclor [Cefaclor] Allergy (Unknown, Verified 06/27/18 08:25) Unknown ciprofloxacin [From Cipro] Allergy (Unknown, Verified 06/27/18 08:25) Unknown ciprofloxacin HCl [From Cipro] Allergy (Unknown, Verified 06/27/18 08:25) Unknown hydroxyzine HCl [From Atarax] Allergy (Unknown, Verified 06/27/18 08:25) Unknown influenza virus vaccine, specific [Influenza Virus Vacc,Specific] Allergy (Unknown, Verified 06/27/18 08:25) Unknown iodine Allergy (Unknown, Verified 06/27/18 08:25) Unknown latex Allergy (Unknown, Verified 06/27/18 08:25) Unknown levofloxacin [From Levaquin] Allergy (Unknown, Verified 06/27/18 08:25) Unknown lidocaine Allergy (Unknown, Verified 06/27/18 08:25) Unknown lovastatin Allergy (Unknown, Verified 06/27/18 08:25) Unknown niacin Allergy (Unknown, Verified 06/27/18 08:25) Unknown Penicillins Allergy (Unknown, Verified 06/27/18 08:25) Unknown pneumococcal vaccine [Pneumococcal Vaccine] Allergy (Unknown, Verified 06/27/18 08:25) Unknown propoxyphene napsylate [From Darvocet-N] Allergy (Unknown, Verified 06/27/18 08:25) Unknown quinapril HCl [From Accupril] Allergy (Unknown, Verified 06/27/18 08:25) Unknown red dye Allergy (Unknown, Verified 06/27/18 08:25) Unknown rosuvastatin calcium [From Crestor] Allergy (Unknown, Verified 06/27/18 08:25) Unknown simvastatin Allergy (Unknown, Verified 06/27/18 08:25) Unknown Sulfa (Sulfonamide Antibiotics) Allergy (Unknown, Verified 06/27/18 08:25) Unknown Tetanus Vaccines and Toxoid [Tetanus Vaccines AND Toxoid] Allergy (Unknown, Verified 06/27/18 08:25) Unknown tetracycline [Tetracycline] Allergy (Unknown, Verified 06/27/18 08:25) Unknown yellow dye Allergy (Unknown, Verified 06/27/18 08:25) Unknown hydrochlorothiazide Allergy (Verified 06/27/18 08:25) Unknown CREATINE MONOHYDRATE Allergy (Unknown, Uncoded 06/27/18 08:25) Unknown Home Medications: Ambulatory Orders Medication Instructions Recorded Past Medical History (Chronic Problems): Chronic Problems (Last Updated 12/20/17 @ 12:08 by Samanta Cabrera) Hypertension (Chronic) Peripheral vascular occlusive disease (Chronic) Type 2 diabetes mellitus without complications (Chronic) Non-rheumatic tricuspid valve insufficiency (Chronic) Nonrheumatic aortic valve insufficiency (Chronic) History of coronary artery stent placement (Chronic 01/05/03) Stent X 2 Mid LAD @ [place] 01/05/2003, Atherosclerosis of coronary artery of tribe heart without angina pectoris (Chronic) Hyperlipidemia (Chronic) Surgical History: coronary artery stents - *Family History Paternal Family History: Family History (Last Updated 12/20/17 @ 12:09 by Samanta Cabrera) Father CAD (coronary artery disease) Mother CAD (coronary artery disease) Brother CAD (coronary artery disease) History Items: No pertinent history Maternal Family History: Family History (Last Updated 12/20/17 @ 12:09 by Samanta Cabrera) Father CAD (coronary artery disease) Mother CAD (coronary artery disease) Brother CAD (coronary artery disease) History Items: Heart Disease Lives: Spouse/ Significant Other Smoking Status: Former smoker Alcohol: None Drugs: None Review of Systems - Review of Systems General: Reports: Fatigue, Normal Appetite, Decreased Appetite, Anorexia, Weight Loss. Denies: Fever, Night Sweats Cardiovascular: Reports: Shortness of Breath, Shortness of Breath with Exertion. Denies: Chest Discomfort, Orthopnea, PND, Peripheral Edema, Palpitations, Lightheadedness, Dizziness, Near Syncope, Syncope Respiratory: Denies: Cough, Sputum Production, Hemoptysis Gastrointestinal: Denies: Hematemesis, Hematochezia, Melena Genitourinary: Denies: Dysuria, Hematuria Skin: Denies: Rash Subjectve: Patient laying in bed, appears to be somewhat fatigued, answers questions appropriately. Denies any chest pain. IV fluids infusing. Objective: Vital Signs Temp Pulse Resp BP Pulse Ox 96.8 F L 139 H 18 97/65 96 06/27/18 14:17 06/27/18 14:17 06/27/18 14:17 06/27/18 14:17 06/27/18 14:17 Oxygen Flow Rate (L/min) 2 Oxygen Delivery Method Nasal Cannula Weight: 179 lb 10.828 oz Body Mass Index (BMI) 24.3 General: Awake, Alert, Oriented x 3, No Acute Distress, Ill Appearing HEENT: PERRL, EOMI, Sclera Non Icteric Neck: Supple, Good ROM, No Lymph Node Enlargement Lungs: Clear to auscultation Cardiovascular: Irregular Rhythm, Normal S1, No Rubs, No Gallops Murmur Murmur: Grade 2/6, Early Diastolic Vascular: No Carotid Bruits, Normal Femoral Pulses, Normal Radial Pulses, Normal Dorsalis Pedal Pulse, Normal Posterior Tibial Pulses Abdomen: Bowel Sounds Present, Soft, Non Tender, No HSM, No Organomegaly Extremities: No Cyanosis, No Clubbing, No edema Neurological: No Focal Motor or Sensory Deficit 06/27/18 12:00: Hemoglobin A1c 5.6 06/27/18 12:00: Hgb 11.9 L, Hct 35.0 L 06/27/18 12:00: Troponin I 0.129 H 06/27/18 13:15: Urine Color Yellow, Urine Clarity Clear, Urine pH 5.0, Ur Specific [place] 1.015, Urine Protein 15 H, Urine Glucose (UA) Normal, Urine Ketones 5 H, Urine Occult Blood 10 H, Urine Nitrite Negative, Urine Bilirubin Negative, Urine Urobilinogen Normal, Ur Leukocyte Esterase Negative, Urine RBC 0-5 SEEN, Urine WBC 0 SEEN Rhythm: EKG: Sinus tachycardia, nonspecific anterolateral ST segment changes. Previous to that the patient had atrial fibrillation with rapid ventricular response and nonspecific anterolateral ST segment changes. ECHO: Pending Stress Test: Cardiac Cath: PCI: CT Surgery: Holter monitor: EPS: PPM: CXR: Chest CT Scan: Assessment/Plan 1. Coronary artery disease: Patient has no anginal symptoms at this time despite his tachycardia and his abnormal troponin. Patient has acute renal failure at this time and requires urgent hemodialysis for both hyperkalemia, and decreased urine output. Would not recommend pursuing catheterization at this time. He has known coronary disease with stents to his LAD. Would recommend and consider a noninvasive stress test once his acute event has resolved. Only if the patient has evidence of anterior ischemia would I consider repeat catheterization. In the meantime we will continue baby aspirin and Plavix as his hemoglobin and platelets are appropriate. Would not consider Lovenox given his acute renal failure. Patient has no chest pain at this time. Would hold off on IV heparin in light of his pending central line catheter for urgent hemodialysis. 2. Acute renal failure: Would recommend holding his spironolactone as well as his lisinopril. Hemodialysis pending. 3. Atrial fibrillation: The patient has evidence of atrial fibrillation superimposed upon hyperkalemia. Hopefully once his potassium has normalized his atrial fibrillation will improve. He is too hypotensive for beta-becky therapy at this time. Should the patient require heart rate control would consider IV amiodarone without a bolus. Would not recommend anticoagulation given the patient's history of falls and head trauma in July 2016. 4. Hyperlipidemia: We will obtain fasting lipid profile. Hold on Pravachol for now. 5. Discussed with Dr. Whitehead. Thank you very much for the opportunity to participate in the cardiac care of your patient. Consultation time between 2 PM and 2:47 PM. Code Visit Inpatient E AND M: [id number] Init Hosp 06/27/18 1448 <Electronically signed by Pop Palafox MD> Date Pop Palafox MD Cosigner Signature (if applicable): Date CC: Carlton Whitehead MD; Pop Palafox MD; Payam Ruvalcaba MD; Darren Steven MD Signed CHEST 1 VIEW Observed: 06/27/2018 Status: F Source: [place]IRSTEN (PORTABLE) 1:24 PM [facility] Imaging Services [address] [place] [address] Chest 1 View (Portable) MR#: [id number] Acct: [id number] Name: GIANA TANG Rep #: [id number] : 1950 M 68 From: Blade Myles MD PCP: Payam Ruvalcaba MD Status: ADM IN Study: Chest 1 View (Portable) Date of Exam: 06/27/18 Exam# [id number] Ordering Dr: Carlton Whitehead MD STUDY: X-RAY CHEST REASON FOR EXAM: Male, 68 years old. Increasing shortness of breath. TECHNIQUE: Single AP portable view of the chest. COMPARISON: Comparison is made with prior study done earlier in the day. FINDINGS: EKG electrodes are seen. Hyperinflation. Scattered calcified granulomas. There is prominence of the right first costochondral junction. There is no demonstrated pleural abnormality. Normal size heart. Normal mediastinum and angel. Normal visualized pulmonary arteries. There is atherosclerotic calcification of the aortic arch with tortuosity. Normal visualized thoracic spine. Normal visualized ribs, clavicles, and shoulders. There is no demonstrated abnormality of the visualized soft tissue structures of the upper abdomen. RAD/Chest 1 View (Portable) IMPRESSION: Hyperinflation. No acute abnormality is seen. Electronically Signed: Blade Myles MD at 14:12 EDT Tel [phone], Service support , CC: Carlton Whitehead MD; Payam Ruvalcaba MD Stem Mounter: Signed URINALYSIS, COMPLETE Collected: 06/27/2018 Status: F Source: KIRSTEN 1:15 PM [facility] Order Comment: How was Urine Obtained? HOTEL CONTROLLER TO SPECIFY TYPE CODE TESTS RESULT OUT OF RANGE REFERENCE UNITS LAB L400.3000 Yellow COLOR Normal Yellow LAB L400.3050 Clear Normal CLARITY Clear LAB L400.3200 Normal mg/dl Normal GLUCOSE, UR Normal LAB L400.3300 Negative mg/dL Normal BILIRUBIN URINE Negative LAB L400.3400 Negative mg/dl High 5 KETONE UR LAB L400.3465 1.002-1.030 Normal SP.GR. DIPSTX 1.015 LAB L400.3550 5.0 - 8.0 pH UR Normal 5.0 LAB L400.3600 Negative mg/dl High PROT 15 DIPSTX LAB L400.3700 Normal mg/dl Normal UROBILI Normal LAB L400.3750 Negative Normal NITRITE UR Negative LAB L400.3780 Negative /ul High 10 OCCULT BLOOD-UR LAB L400.3800 Negative /ul LEUK Normal ESTERASE Negative LAB L400.4050 0-5 /hpf WBC 0 Normal SEEN LAB L400.4100 0-5 /hpf Normal RBC-UA 0-5 SEEN LAB L400.4150 0-5 /hpf SQUAM Normal EPI 0-5 SEEN LAB L400.4300 None Seen /hpf 0 Normal BACTERIA SEEN LAB L400.4350 <or=2+ /hpf 0 Normal MUCUS, URINE SEEN LAB L400.4400 0-5 /lpf Normal HYALINE CAST 0-5 SEEN Performed By: #### L400.0001 #### [facility] [address] [place], [address] CREATININE, URINE Collected: 06/27/2018 Status: F Source: [place] 1:15 PM [facility] TYPE CODE TESTS RESULT OUT OF RANGE REFERENCE UNITS LAB L502.0300 NO RANGE EST. mg/dL Normal URINE 155.00 CREAT Performed By: #### L502.0300 #### [facility] [address] URINE SODIUM Collected: 06/27/2018 Status: F Source: MANOR 1:15 PM [facility] TYPE CODE TESTS RESULT OUT OF RANGE REFERENCE UNITS LAB L501.5500 Not Establ. mmol/L Normal UR NA 23 Performed By: #### L501.5500 #### [facility] [address] [place], [address] HH, HEMOGLOBIN AND Collected: 06/27/2018 Status: F Source: MANOR HEMATOCRIT 12:00 PM [facility] TYPE CODE TESTS RESULT OUT OF RANGE REFERENCE UNITS LAB L100.1300 13.0-16.5 g/dl Low HGB 11.9 LAB L100.1400 40-54 % Low HCT 35.0 Performed By: #### L100.0600 #### [facility] [address] [place], [address] HEMOGLOBIN A1C Collected: 06/27/2018 Status: F Source: KIRSTEN 12:00 PM [facility] TYPE CODE TESTS RESULT OUT OF RANGE REFERENCE UNITS LAB L501.9985 4.2-6.3 % Normal HGB A1C 5.6 Performed By: #### L501.9985 #### [facility] [address] [place], [address] THYROID STIM HORMONE Collected: 06/27/2018 Status: F Source: KIRSTEN (TSH) 12:00 PM [facility] TYPE CODE TESTS RESULT OUT OF RANGE REFERENCE UNITS LAB L501.9520 0.358-3.74 uIU/mL Normal TSH 1.21 Performed By: #### L501.9520 #### [facility] [address], [address] TROPONIN-I Collected: 06/27/2018 Status: F Source: MANOR 12:00 PM [facility] Order Comment: 'TROP' Serial specimen #1, #2 or #3: 1 TYPE CODE TESTS RESULT OUT OF RANGE REFERENCE UNITS LAB L501.4010 <0.045 ng/mL High 0.129 TROPONIN-I Result Comment: TROPONIN-I EXPECTED VALUES <0.045 Negative 0.045 - 0.590 Consistent with Cardiac Damage > OR = 0.600 Critical Value Not every elevated troponin is indicative of SD. These values should be used with clinical judgement in examining the patient's clinical picture for diagnosis. To establish a diagnosis of SD versus myocardial injury, there must be a demonstrated rise and/or fall in the troponin values, in addition to ischemic symptoms, EKG changes, new regional wall motion abnormality, and/or angiographical evidence. PLEASE NOTE: REFERENCE RANGES EDITED 18 Performed By: #### L501.4010 #### [facility] [address] [place], [address] HISTORY AND PHYSICAL Observed: 06/27/2018 Status: F Source: KIRSTEN EXAM 11:38 AM [facility] Medical Records Department [address] [place] [address] History and Physical 06/27/18 1055 MR#: [id number] Acct: [id number] Name: GIANA TANG Rep #: [id number] : 1950 68 From: Merced Cox MD PCP: Payam Ruvalcaba MD Status: ADM IN Y Location: ICU ICU01-1 Problem List (1) Syncope Status: Acute (2) Atrial fibrillation with RVR Status: Acute (3) Hyperkalemia Status: Acute (4) Acute renal failure Status: Acute (5) Hypertension Status: Chronic (6) Peripheral vascular occlusive disease Status: Chronic (7) Type 2 diabetes mellitus without complications Status: Chronic (8) History of coronary artery stent placement Status: Chronic Comment: Stent X 2 Mid LAD @ [place] 01/05/2003, (9) Atherosclerosis of coronary artery of tribe heart without angina pectoris Status: Chronic (10) Hyperlipidemia Status: Chronic History of Present Illness Date of Admission: 06/27/18 Chief Complaint: Syncope. The patient is a 68 year old M with past medical history as mentioned above presented to the emergency room because of syncope. According to the patient, this morning patient was standing and he felt dizzy, lightheaded as well as short of breath and he passed out. He thinks that he was out for more than 30 minutes. He has associated symptoms of generalized weakness and bilateral leg pain. He denied chest pain, palpitation. He denied abdominal pain, nausea or vomiting. He reported black tarry stool that has been going on for couple of days. He denies epistaxis, hemoptysis, hematemesis, hematochezia or hematuria. He had a history of CAD status post stents in 2002 and he has been on aspirin, Plavix, statins and beta blockers and he mentioned that he did not think his Plavix for the last couple of days. Has a history of diet-controlled type 2 diabetes mellitus and his most recent hemoglobin A1c available in his chart was from August, and it was 6. He had a history of hypertension and he has been on losartan and metoprolol his blood pressure seems to be under control. Initially in the emergency department, patient was afebrile, heart rate was around 100 and was in sinus rhythm, blood pressure stable and pulse ox was 94% on 4 L. Reportedly, squad mentioned that his pulse ox at home was in the 80s on room air. While in the ER, patient developed new onset A. fib with RVR, heart rate went up to 150s, blood pressure remained stable. His CBC was unremarkable. BMP revealed potassium 7.1, carbon dioxide of 14, BUN of 184 and creatinine 4.76. Lactic acid was normal. Troponin was 0.127. Initial EKG revealed normal sinus rhythm without evidence of cardiac arrhythmias or acute ischemic changes. EKG repeated after he became tachycardic and revealed A. fib with RVR. Chest x- ray showed no acute findings. X-ray of the pelvis because patient complained of pelvic pain and showed no acute fractures. He is being admitted for acute renal failure with uremia requiring emergent hemodialysis, metabolic acidosis, hyperkalemia, new onset A. fib with RVR as well as indeterminate troponin. Past Medical History Past Medical History (Chronic Problems): Chronic Problems (Last Updated 12/20/17 @ 12:08 by Samanta Cabrera) Hypertension (Chronic) Peripheral vascular occlusive disease (Chronic) Type 2 diabetes mellitus without complications (Chronic) Non-rheumatic tricuspid valve insufficiency (Chronic) Nonrheumatic aortic valve insufficiency (Chronic) History of coronary artery stent placement (Chronic 01/05/03) Stent X 2 Mid LAD @ [place] 01/05/2003, Atherosclerosis of coronary artery of tribe heart without angina pectoris (Chronic) Hyperlipidemia (Chronic) Medical History: Medical History (Last Updated 12/20/17 @ 12:08 by Samanta Cabrera) Hypertension (Chronic) I10 Peripheral vascular occlusive disease (Chronic) I73.9 Type 2 diabetes mellitus without complications (Chronic) E11.9 Non-rheumatic tricuspid valve insufficiency (Chronic) I36.1 Nonrheumatic aortic valve insufficiency (Chronic) I35.1 Atherosclerosis of coronary artery of tribe heart without angina pectoris (Chronic) I25.10 Hyperlipidemia (Chronic) E78.5 Agent orange exposure Z77.098 COPD (chronic obstructive pulmonary disease) J44.9 Carotid stenosis I65.29 Chronic fatigue disorder R53.82 Esophagitis K20.9 Allergies acetaminophen [From Darvocet-N] Allergy (Unknown, Verified 06/27/18 08:25) Unknown amitriptyline HCl [From Elavil] Allergy (Unknown, Verified 06/27/18 08:25) Unknown atorvastatin calcium [From Lipitor] Allergy (Unknown, Verified 06/27/18 08:25) Unknown azithromycin [From Zithromax] Allergy (Unknown, Verified 06/27/18 08:25) Unknown cefaclor [Cefaclor] Allergy (Unknown, Verified 06/27/18 08:25) Unknown ciprofloxacin [From Cipro] Allergy (Unknown, Verified 06/27/18 08:25) Unknown ciprofloxacin HCl [From Cipro] Allergy (Unknown, Verified 06/27/18 08:25) Unknown hydroxyzine HCl [From Atarax] Allergy (Unknown, Verified 06/27/18 08:25) Unknown influenza virus vaccine, specific [Influenza Virus Vacc,Specific] Allergy (Unknown, Verified 06/27/18 08:25) Unknown iodine Allergy (Unknown, Verified 06/27/18 08:25) Unknown latex Allergy (Unknown, Verified 06/27/18 08:25) Unknown levofloxacin [From Levaquin] Allergy (Unknown, Verified 06/27/18 08:25) Unknown lidocaine Allergy (Unknown, Verified 06/27/18 08:25) Unknown lovastatin Allergy (Unknown, Verified 06/27/18 08:25) Unknown niacin Allergy (Unknown, Verified 06/27/18 08:25) Unknown Penicillins Allergy (Unknown, Verified 06/27/18 08:25) Unknown pneumococcal vaccine [Pneumococcal Vaccine] Allergy (Unknown, Verified 06/27/18 08:25) Unknown propoxyphene napsylate [From Darvocet-N] Allergy (Unknown, Verified 06/27/18 08:25) Unknown quinapril HCl [From Accupril] Allergy (Unknown, Verified 06/27/18 08:25) Unknown red dye Allergy (Unknown, Verified 06/27/18 08:25) Unknown rosuvastatin calcium [From Crestor] Allergy (Unknown, Verified 06/27/18 08:25) Unknown simvastatin Allergy (Unknown, Verified 06/27/18 08:25) Unknown Sulfa (Sulfonamide Antibiotics) Allergy (Unknown, Verified 06/27/18 08:25) Unknown Tetanus Vaccines and Toxoid [Tetanus Vaccines AND Toxoid] Allergy (Unknown, Verified 06/27/18 08:25) Unknown tetracycline [Tetracycline] Allergy (Unknown, Verified 06/27/18 08:25) Unknown yellow dye Allergy (Unknown, Verified 06/27/18 08:25) Unknown hydrochlorothiazide Allergy (Verified 06/27/18 08:25) Unknown CREATINE MONOHYDRATE Allergy (Unknown, Uncoded 06/27/18 08:25) Unknown Home Medications: Ambulatory Orders Medication Instructions Recorded Surgical History: Surgical History (Last Updated 12/20/17 @ 11:56 by Samanta Cabrera) History of coronary artery stent placement (Chronic) Onset Date: 01/05/03 Z95.5 Stent X 2 Mid LAD @ [place] 01/05/2003, History of right and left heart catheterization Onset Date: 02/18/15 Z98.890 Occluded RCA, Patent LAD Stents Surgical History: - - Cardiac stents. Psychiatric History: No pertinent psych hx Lives: Spouse/ Significant Other Smoking Status: Former smoker Alcohol: None Drugs: None - *Family History Maternal Family History: Family History (Last Updated 12/20/17 @ 12:09 by Samanta Cabrera) Father CAD (coronary artery disease) Mother CAD (coronary artery disease) Brother CAD (coronary artery disease) History Items: Heart Disease Paternal Family History: Family History (Last Updated 12/20/17 @ 12:09 by Samanta Cabrera) Father CAD (coronary artery disease) Mother CAD (coronary artery disease) Brother CAD (coronary artery disease) History Items: No pertinent history Review of Systems Constitutional: Reports: Weakness, Fatigue. Denies: Anorexia, Chills, Fever Eyes: Denies: Blurred vision, Double vision, Drainage, Redness HEENT: Denies: Difficulty Hearing, Ear Pain, Eye Pain, Nasal Congestion, Sore Throat Cardiovascular: Reports: Light Headedness, Syncope. Denies: Chest Pain, Chest Pressure, Heaviness, Orthopnea, Palpitations, Paroxysmal Noc. Dyspnea Respiratory: Reports: Shortness of Breath, Shortness of breath at rest. Denies: Cough, Pleuritic Pain, Sputum production, Wheezing Gastrointestinal: Reports: Melena. Denies: Abdominal Pain, Constipation, Diarrhea, Hematemesis, Hematochezia, Nausea, Vomiting Genitourinary: Denies: Dysuria, Frequency, Hematuria Musculoskeletal: Denies: Arm Pain, Back Pain, Foot Pain Skin: Denies: Dryness, Rash Neurological: Denies: Balance problems, Double vision, Change in Speech, Slurred speech, Confusion, Focal weakness, Headaches, Incoordination, Numbness, Tingling Psychiatric: Denies: Anxiety, Depression Endocrine: Denies: Change in Body Habitus, Polydipsia VTE Information - Inpt Only VTE Present on Admission: No VTE Mechan Device Prophylaxis: SCD's VTE Pharm Prophylaxis ordered?: No Patient Problems: Active and Suspected Problems (Last Updated 12/20/17 @ 12:08 by Samanta Cabrera) Syncope (Acute) Atrial fibrillation with RVR (Acute) Hyperkalemia (Acute) Acute renal failure (Acute) - Physical Exam General: Alert, Oriented x3, Cooperative, - - Minimally short of breath. HEENT: Atraumatic, PERRLA, EOMI, Normocephalic Oral: Moist Mucosa, No Gingival or Mucosal Lesions/ Ulcerations Neck: Supple, No JVD, Negative Carotid Bruits, Trachea Midline, Thyroid Normal Size and Texture Lungs: Clear to auscultation, No rhonchi, No wheeze, No rales, Diminished Cardiovascular: Normal S1, Normal S2, No murmurs, PMI Normal, Irregular Rate, Tachycardic Abdomen: Bowel Sounds Present, Soft, Non Tender, Non-Distended, No Hepato-splenomegaly Extremities: No clubbing, No cyanosis, No edema Skin: No rashes, No breakdown Lymphatic: No Cervical, Supraclavicular, or Inguinal Adenopathy Neurological: Cranial nerves II-XII grossly intact, Motor Exam 5/5 strength throughout Psych/Mental Status: Normal Affect, Appropriate, Alert and oriented to time, place, person, mood and affect Vital Signs Temp Pulse Resp BP Pulse Ox 97.2 F L 123 H 16 138/111 H 100 06/27/18 08:20 06/27/18 10:30 06/27/18 10:30 06/27/18 10:30 06/27/18 10:37 Oxygen Flow Rate (L/min) 2 Oxygen Delivery Method Nasal Cannula Weight: 179 lb 10.828 oz Body Mass Index (BMI) 24.3 Laboratory Tests WBC (4.4-11.0) K/mm3 RBC (4.6-6.2) M/mm3 WBC (4.4-11.0) K/mm3 RBC (4.6-6.2) M/mm3 WBC 10.6 (4.4-11.0) K/mm3 RBC 4.24 L (4.6-6.2) M/mm3 Hgb 13.4 (13.0-16.5) g/dl Hct 39.3 L (40-54) % Clinical Impression(s) from Imaging Studies Chest X-Ray 06/27/18 08:38 IMPRESSION: Hyperinflation. The lungs are clear. Electronically Signed: Blade Myles MD at 9:04 EDT Tel [phone], Service support , Pelvis X-Ray 06/27/18 08:45 IMPRESSION: No fracture is seen. Electronically Signed: Blade Myles MD at 9:03 EDT Tel [phone], Service support , Assessment/Plan All Active Problems (Last Updated 12/20/17 @ 12:08 by Samanta Cabrera) Syncope (Acute) Atrial fibrillation with RVR (Acute) Hyperkalemia (Acute) Acute renal failure (Acute) This is a 68 years old male patient presented to the emergency room because of syncope, found to have acute renal failure complicated by uremia and metabolic acidosis as well as hyperkalemia and while in the ER, he went into A. fib with RVR which is new to him and also found to have borderline elevated troponin. #1 acute renal failure/uremia/metabolic acidosis: This is an acute, patient does not known to have chronic kidney disease. Admission BUN is 184, creatinine is 4.76. Previously, kidney function was normal. Unclear etiology at at this time, could be prerenal secondary to dehydration in addition to medication side effects including losartan and Aldactone. Other etiologies such as obstructive uropathy cannot be ruled out. At this time, patient is A. fib with RVR and he developed some form of cardiac arrhythmia on the EKG, questionable torsades de points. Serum magnesium was given on the higher side. Patient will need emergent hemodialysis. Plan: Admit to ICU, critical care monitoring, cardiac and renal diet, IV fluids for hydration, repeat BMP at 4 PM today, CT scan abdomen and pelvis, ultrasound kidneys, nephrology consult, critical care consult, check serum phosphorus, TSH, PT OT evaluation and treatment. #2 hyperkalemia: Secondary to above. EKG revealed A. fib with RVR, no peaked T waves but he developed some form of cardiac arrhythmias. Plan: Nephrology consult, emergent hemodialysis, check serum phosphorus, repeat BMP this afternoon. #3 new onset A. fib with RVR/cardiac arrhythmia: Initial EKG revealed sinus rhythm. Later, EKG revealed A. fib with RVR. On the monitor strip there was wide complex tachycardia which may be of concern for dissected points, it is not clear. At this time, heart rate has been in the 130s, blood pressure stable. Plan: Emergent hemodialysis, correct electrolytes, TSH, 2D echocardiogram, cardiology consult. #4 borderline elevated troponin: Likely due to acute renal failure in addition to A. fib with RVR or possible underlying CAD. Patient does have history of CAD status post stents. He denied any chest pain. Plan: Cardiac monitoring, serial cardiac enzymes, repeat EKG tomorrow morning, 2D echocardiogram, cardiology consult. #5 syncope: Likely due to all of the above. At this time, blood pressure stable, heart rate has been 130s. Plan as above. #6 melena: Patient reported black stool for the last couple of days. He has been on Plavix as well as aspirin. Plan: Stool for occult blood, pro time and INR, repeat CBC tomorrow morning. #7 CAD status post stents: Plan as above, continue aspirin, Plavix metoprolol and statins, hold losartan #8 hypertension: At this time, blood pressure stable. Plan to continue metoprolol, hold losartan and Aldactone. #9 hyperlipidemia: Continue statins. #10 diet-controlled type 2 diabetes mellitus: Patient is not on any diabetic medications at home. Plan for Accu-Cheks as needed, sliding scale, hemoglobin A1c. #11 DVT prophylaxis: SCDs. #12 CODE STATUS: Full code. This is discussed with the patient by Dr. Whitehead, metal control coordinator. This note was generated with [employer] dictation software. It may contain incorrect words, spelling, and punctuation that were not noted in checking the note before signing. Code Visit Inpatient E AND M: 80931 Init Hosp L3 06/27/18 1138 <Electronically signed by Merced Cox MD> Date Merced Cox MD Cosigner Signature: Date (if applicable) CC: Merced Cox; Payam Ruvalcaba MD Signed KIDNEY AND BLADDER Observed: 06/27/2018 Status: F Source: KIRSTEN 11:00 AM [facility] Imaging Services [address] [place] [address] Kidney and Bladder MR#: [id number] Acct: [id number] Name: GIANA TANG Rep #: [id number] : 1950 M 68 From: Brandt Deras MD PCP: Payam Ruvalcaba MD Status: ADM IN Study: Kidney and Bladder Date of Exam: 06/27/18 Exam# [id number] Ordering Dr: Carlton Whitehead MD STUDY: RENAL ULTRASOUND - COMPLETE REASON FOR EXAM: Male, 68 years old. Acute renal failure TECHNIQUE: Ultrasound evaluation of the kidneys was performed with real-time and static harrell-scale imaging. COMPARISON: None. FINDINGS: RIGHT KIDNEY: Normal location of the right kidney, which is normal in size. The right kidney measures 11.0 x 4.8 x 5.0 cm. There is a normal cortex of the right kidney. The renal cortex measures 1.6 cm. There is no right renal mass or cyst. There are no right renal calculi. There is no right hydronephrosis. DISTAL RIGHT URETER: There is non-visualization of the distal right ureter. There is no demonstrated right ureterovesical junction calculus. There is a visualized right ureteral jet. LEFT KIDNEY: Normal location of the left kidney, which is normal in size. The left kidney measures 10.9 x 4.2 x 5.0 cm. There is a normal cortex of the left kidney. The renal cortex measures 1.5 cm. There is a 1.8 cm cyst from the left kidney. There are no left renal calculi. There is no left hydronephrosis. DISTAL LEFT URETER: There is non-visualization of the distal left ureter. There is no demonstrated left ureterovesical junction calculus. There is a visualized left ureteral jet. BLADDER: A Solorzano's catheter in place in the urinary bladder. US/Kidney and Bladder IMPRESSION: A small 1.8 cm cyst from the left kidney. No hydronephrosis on either side. A Solorzano's catheter is in the urinary bladder Electronically Signed: Brandt Deras, at 23:51 EDT Tel , Service support , CC: Carlton Whitehead MD; Payam Ruvalcaba MD Stem Mounter: Signed ABDOMEN/PELVIS WITHOUT Observed: 06/27/2018 Status: F Source: MANOR CONT 10:53 AM [facility] Imaging Services [address] [place] [address] Abdomen/Pelvis without Cont MR#: [id number] Acct: [id number] Name: GIANA TANG Rep #: [id number] : 1950 M 68 From: Brandt Deras MD PCP: Payam Ruvalcaba MD Status: ADM IN Study: Abdomen/Pelvis without Cont Date of Exam: 06/28/18 Exam# [id number] Ordering Dr: Merced Cox MD STUDY: CT ABDOMEN AND PELVIS WITHOUT CONTRAST REASON FOR EXAM: Male, 68 years old. Acute renal failure RADIATION DOSAGE (If Supplied By Facility): CTDIvol = ( 16.72 ) mGy, DLP = ( 918.76 ) mGycm TECHNIQUE: Transaxial images were obtained from the dome of the diaphragm to the symphysis pubis without oral contrast, and without intravenous contrast. Sagittal and coronal images were reconstructed. Individualized dose optimization techniques were used for this CT. COMPARISON: None. FINDINGS: The lung bases are clear. There is pneumobilia.. The gallbladder is normal with no calcifications within it. There is no pericholecystic fluid collection or streakiness The spleen is normal. The pancreas is normal. Both adrenals are normal. Numerous calcifications in the kidneys but these are vascular in origin rather than kidney stones The stomach is normal. There is no bowel distention, acute appendicitis or diverticulitis. No constricting lesions are seen in large bowel. The abdominal wall is intact with no hernias. There is no ascites or any free intraperitoneal air. No indication of epiploic appendagitis The aorta is heavily calcified in its almanzar. There is no retrocrural, retroperitoneal or mesenteric adenopathy. There are degenerative changes involving L4-5 and L5-S1. The urinary bladder is normal.--A Solorzano's catheter is in place. A is within the urinary bladder.. There is no inguinal or pelvic adenopathy. There is no inguinal hernia. . CT/Abdomen/Pelvis without Cont IMPRESSION: Pneumobilia. No gallstones. Calcifications within the kidneys but these are deemed to be vascular in origin. No acute appendicitis or diverticulitis Electronically Signed: Lilbourn KellenalejandraHieu, at 1:38 EDT Tel , Service support , CC: Merced Cox; Payam Ruvalcaba MD Stem Mounter: Signed Gary Meng [employer] Collected: 06/27/2018 Status: F Source: [place] DNA BY PCR 10:30 AM [facility] [place] TYPE CODE TESTS RESULT OUT OF RANGE REFERENCE UNITS LAB L8200.1100 Negative Normal MRSA Negative RESULT Performed By: #### L8200.1000 #### [facility] [address] [place], [address] EMERGENCY DEPARTMENT Observed: 06/27/2018 Status: F Source: [place] SUMMARY 10:13 AM [facility] [place] [facility] Medical Records Department [address] [place] [address] Emergency Department Summary 06/27/18 0812 MR#: [id number] Acct: [id number] Name: GIANA TANG Rep #: [id number] : 1950 68 From: Tye Huggins MD PCP: Payam Ruvalcaba MD Status: ADM IN - ER Visit Summary Date of Service: 06/27/18 Chief Complaint: I passed out. History of Present Illness: The patient is a 68 M with multiple significant past medical problems presents after syncopal episode. He was walking from the restroom and passed out. He reports no prodrome. He presently complains of chills, shortness of breath, black stool and weakness. Nursing staff informed me that he complains of pain all over. EMS documented a systolic pressure of 100 and pulse ox on room air 82%. EMS report not available at the time of this dictation. Patient denies headache, visual, ocular auditory symptoms. He denies any chest pain or shortness of breath. He denies abdominal pain. He denies any urologic symptoms. He denies any numbness or tingling in his extremities. He denies headache. For review of old records he is on no anticoagulant. There is a past history coronary disease, COPD, GERD, type 2 diabetes, hypertension, hypercholesterolemia and nonrheumatic valvular heart disease. Physical Examination: Patient has chills or tremors. Head is atraumatic normocephalic. There is no clinical findings of basal skull fracture. Pupils equal round reactive. Extra muscle intact. Sclera is anicteric. Conjunctive is pink. Nares patent with no discharge or blood. Septum is not deviated. Posterior pharynx unremarkable. Trachea midline. There is no carotid bruit or stridor. There is no pain the patient cervical spine. He has full active range of motion of his neck. Heart is regular with diastolic murmur consistent with aortic insufficiency. Lungs are clear to auscultation. Fair movement of air bilaterally. Abdomen is soft nontender with no palpable cell mass abdominal bruit. He has pain palpation of the pelvis. There is no shortening of the right or left leg or abnormal positioning or rotation. He is alert and oriented to name, place and year. Motor spiral 5. Sensations intact. DTRs are symmetric. Cranial 2 through 12 are intact. Examination of the lower extremity reveals swelling of his right leg compared to left. He states this is normal. There is no leg vein distention, discoloration, palpable coarseness on the distribution of deep venous system. Rectal exam was performed and stool is brown and not black. Prostate normal size and nontender. Test Results: EKG reveals a sinus rhythm rate of [address]-T wave changes that are new since August 24, 2014. Two-view chest x-ray reveals normal cardiac silhouette and mediastinum. No abnormality of osseous structures. Mild chronic changes of the lung parenchyma. There is no infiltrate, pneumothorax or effusion. White count is normal. Basic metabolic panel is marked for potassium 7.1, CO2 of 14 with an anion gap of 18. BUN is 184 and creatinine is 4.76. Troponin is indeterminate 0.127 and most likely secondary to the renal failure. Emergency Department Course and Treatment: With history of valvular heart disease and coronary disease will obtain EKG and troponin to evaluate for cardiac ischemia. Because of the reported hypoxia and poor waveform here will obtain ABG to determine accuracy of pulse ox reading. CBC was obtained to evaluate for anemia. Electrolytes to evaluate for renal failure or metabolic abnormalities since he reports poor p.o. intake. I was informed by nurse that his heart rate is rapid and irregular. She also states his tremor/shaking is increased. I observed his monitoring he is now in A. fib with RVR rate varying between 12/04/1963. Will obtain EKG to evaluate for acute ischemia. Once EKG has been obtained and reviewed will contact hospitalist since this is new since I spoke to him. Rhythm strips reviewed. What appears to be V. 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 There is also a strep that is consistent with torsades. Magnesium level was ordered and IV magnesium was ordered as push. Case was discussed with Dr. Palafox. He will look up prior records on patient. He agrees emergent dialysis as needed. Nephrology has been paged. Bag Sorter has been paged as well, Dr. Carlton Whitehead. I was informed by the cardiovascular or nurse that there was no evidence of DVT. Treatment Plan: With acute renal failure and uremia will need nephrology consultation. He received 1 amp of calcium gluconate, IV bicarb, 1 amp of D50 and 5 units of insulin IV push to treat his hyperkalemia. He did not receive Kayexalate. Disposition: Patient will require admission to PCU stepdown versus ICU. Awaiting results of venous duplex study. If positive with reported hypoxia will presume patient had PE. In light of acute renal failure he is not a candidate for CTA. Impression: 1. Syncope 2. Hyperkalemia 3. Acute renal failure with uremia 4. Elevated troponin suspect secondary to AK I 5. New onset A. fib with RVR 6. Torsades 7. Alan's phenomenon versus V. tach This note was generated with [employer] dictation software. It may contain incorrect words, spelling, and punctuation that were not noted in review of the chart prior to signing ED Disposition - Plan for ED Patient: Chief Complaint: Syncope Referrals: Payam Ruvalcaba MD [Primary Care Provider] - What to do if you have Problems For any increased pain, shortness of breath, bleeding, nausea or vomiting, chest pain, or any unexpected problems, contact your Primary Care Provider. Call [facility] ([phone]) or report to the closest Emergency Room. Call 911 if necessary. 06/27/18 1013 <Electronically signed by Tye Huggins MD> Date Tye Huggins MD Cosigner Signature (If Indicated): Date CC: Payam Ruvalcaba MD BLOOD GASES BY CPS Collected: 06/27/2018 Status: F Source: [place] 9:11 AM [facility] [place] TYPE CODE TESTS RESULT OUT OF RANGE REFERENCE UNITS LAB L9000.9990 Normal BLD GAS TYPE ART LAB L9001.1000 Normal SITE R Femoral LAB L9001.1010 Normal SAE TEST NA LAB L9001.1050 O2 Normal Delivery Dev Nasal Can LAB L9001.1055 /min Normal LPM 4.0 LAB L9001.1104 Normal Results To ED LAB L9001.1105 Normal Time Given 910 LAB L9001.1110 7.35-7.45 Low pH - I-STAT 7.27 LAB L9001.1210 35-45 mmHg Low pCO2 - ISTAT 22.5 LAB L9001.1310 75-100 mmHG High PO2 I-STAT 187 LAB L9001.2300 22-26 mmol/L Low HCO3 ISTAT 10.3 LAB L9001.2400 -2 to +2 mmol/L Low BE ISTAT -17 LAB L9001.2415 mmol/L Normal TOTAL CO2 11 ISTAT LAB L9001.2425 95-99 % High SO2 ISTAT 100 Performed By: #### L9000.0800 #### [facility] Point of Care [address] [place] [address] CBC-COMPLETE BLOOD CNT Collected: 06/27/2018 Status: F Source: [place] NO DIFF 8:10 AM [facility] [place] TYPE CODE TESTS RESULT OUT OF RANGE REFERENCE UNITS LAB L100.1000 4.4-11.0 K/mm3 Normal WBC 10.6 LAB L100.1200 4.6-6.2 M/mm3 Low RBC 4.24 LAB L100.1300 13.0-16.5 g/dl Normal HGB 13.4 LAB L100.1400 40-54 % Low HCT 39.3 LAB L100.1500 80-94 fL Normal MCV 92.7 LAB L100.1600 27.0-32.0 pg Normal MCH 31.6 LAB L100.1700 32-36 g/gl Normal MCHC 34.1 LAB L100.1810 11.6-14.6 % Normal RDW CV 13.4 LAB L100.1820 35.1-43.9 fl Normal RDW SD 43.9 LAB L100.1900 150-450 K/mm3 Normal PLT 231 LAB L100.2000 6.2-12.0 fl Normal MPV 11.9 Performed By: #### L100.0500 #### [facility] [address] [place], [place], [address] BASIC METABOLIC Collected: 06/27/2018 Status: F Source: [place] PROFILE (BMP) 8:10 AM [facility] [place] TYPE CODE TESTS RESULT OUT OF RANGE REFERENCE UNITS LAB L501.0100 74-106 mg/dL Normal GLU 98 Result Comment: Please note revised GLUCOSE reference range effective 2017. LAB L501.1000 7-18 mg/dL High alert BUN 184 Result Comment: Critical Result(s) Called ANISA Corcoran at: 08:40:43 06/27/2018 by: DUTCH SOTO LAB L501.1100 0.70-1.30 mg/dL CREAT,SERUM High 4.76 Result Comment: The validity of the calculated GFR AND GFRAA in patients over 70 years has not been determined. Clinical correlation is essential. LAB L501.1110 >60 mL/min Low EST GFR 13 Result Comment: Non- GFR Calc LAB L501.1115 >60 mL/min Low EST GFR - AA 16 Result Comment: GFR Calc LAB L501.1255 ml/min Normal Estimated CRCL 15.85 LAB L501.1300 10-20 RATIO High BUN/CRE 38.7 LAB L501.2200 8.5-10 mg/dL Normal .1 CA 9.5 LAB L501.5300 136-14 mmol/L Normal 5 NA 144 LAB L501.5600 3.5-5. mmol/L High 1 K alert 7.1 Result Comment: Critical Result(s) Called to ANISA Barrientos at: 08:40:29 06/27/2018 by: DUTCH SOTO LAB L501.5900 98-107 mmol/L High CL 112 LAB L501.6100 21.0-32.0 mmol/L Low CO2 14.0 LAB L501.6200 5-15 High GAP 18 Performed By: #### L500.2500, L501.4010 #### [facility] [address] [place], [address] TROPONIN-I Collected: 06/27/2018 Status: F Source: [place] 8:10 AM [facility] [place] TYPE CODE TESTS RESULT OUT OF RANGE REFERENCE UNITS LAB L501.4010 <0.045 ng/mL High 0.127 TROPONIN-I Result Comment: TROPONIN-I EXPECTED VALUES <0.045 Negative 0.045 - 0.590 Consistent with Cardiac Damage > OR = 0.600 Critical Value Not every elevated troponin is indicative of SD. These values should be used with clinical judgement in examining the patient's clinical picture for diagnosis. To establish a diagnosis of SD versus myocardial injury, there must be a demonstrated rise and/or fall in the troponin values, in addition to ischemic symptoms, EKG changes, new regional wall motion abnormality, and/or angiographical evidence. PLEASE NOTE: REFERENCE RANGES EDITED 18 Performed By: #### L500.2500, L501.4010 #### [facility] [address] [place], [address] LACTIC ACID Collected: 06/27/2018 Status: F Source: [place] 8:10 AM [facility] [place] Order Comment: Yes/No query for Sepsis Lactate Rule Y TYPE CODE TESTS RESULT OUT OF RANGE REFERENCE UNITS LAB L503.6005 0.4-2.0 mmol/L Normal LACTIC ACID 1.7 Performed By: #### L503.6005 #### [facility] [address] [place], [address] MAGNESIUM Collected: 06/27/2018 Status: F Source: [place] 8:10 AM [facility] [place] TYPE CODE TESTS RESULT OUT OF RANGE REFERENCE UNITS LAB L501.5200 1.6-2.6 mg/dL High MG 3.1 Performed By: #### L501.5200 #### [facility] [address] [place], [address] PROTHROMBIN TIME W/INR Collected: 06/27/2018 Status: F Source: [place] 8:10 AM [facility] [place] TYPE CODE TESTS RESULT OUT OF RANGE REFERENCE UNITS LAB L300.4150 11.7-14.9 SECONDS Normal PROTIME 13.6 LAB L300.4200 Normal INR 1.0 Performed By: #### L300.3900, L300.4310 #### [facility] [address] [place], [address] PARTIAL THROMBOPLAST Collected: 06/27/2018 Status: F Source: [place] TIME 8:10 AM [facility] [place] TYPE CODE TESTS RESULT OUT OF RANGE REFERENCE UNITS LAB L300.4310 24.1-36.2 Seconds Normal PTT 28.7 Performed By: #### L300.3900, L300.4310 #### [facility] [address] [place], [address] CPK TOTAL, CREATINE Collected: 06/27/2018 Status: F Source: [place] KINASE 8:10 AM [facility] [place] TYPE CODE TESTS RESULT OUT OF RANGE REFERENCE UNITS LAB L501.3620 39-308 U/L Normal CPK TOTAL 108 Performed By: #### L501.3620 #### [facility] [address] [place], [address] PHOSPHORUS Collected: 06/27/2018 Status: F Source: [place] 8:10 AM [facility] [place] TYPE CODE TESTS RESULT OUT OF RANGE REFERENCE UNITS LAB L501.2300 2.5-4.9 mg/dL High PHOS 6.2 Performed By: #### L501.2300 #### [facility] [address] [place], [address] PELVIS 1 OR 2 VIEWS Observed: 06/27/2018 Status: F Source: [place] 8:04 AM [facility] [place] [facility] Imaging Services [address] [place] [address] Pelvis 1 or 2 Views MR#: [id number] Acct: [id number] Name: CLYDEGIANA J Rep #: [id number] : 1950 M 68 From: Blade Myles MD PCP: Peg GUERRERO,Payam Status: REG ER Study: Pelvis 1 or 2 Views Date of Exam: 06/27/18 Exam# [id number] Ordering Dr: Tye Huggins MD STUDY: X-RAY - PELVIS REASON FOR EXAM: Male, 68 years old. Pelvic pain following a fall. TECHNIQUE: One view of the pelvis was obtained. COMPARISON: None. FINDINGS: There is a non-specific bowel gas pattern. A covered stent is seen in the common femoral and superficial femoral arteries. Normal bilateral iliac wings, sacroiliac joints and visualized sacrum. Normal visualized bilateral superior and inferior pubic rami. Normal pubic symphysis. Normal ischial tuberosities. Normal visualized right femoral head. Normal right acetabulum. There is mild articular joint space narrowing of the right hip. Normal visualized left femoral head. Normal left acetabulum. There is mild articular joint space narrowing of the left hip. RAD/Pelvis 1 or 2 Views IMPRESSION: No fracture is seen. Electronically Signed: Blade Myles MD at 9:03 EDT Tel [phone], Service support , CC: Payam Ruvalcaba MD; Tye Huggins MD Stem Mounter: Signed CHEST PA AND LATERAL Observed: 06/27/2018 Status: F Source: [place] 8:04 AM [facility] [place] [facility] Imaging Services [address] [place] [address] Chest PA and Lateral MR#: [id number] Acct: [id number] Name: GIANA TANG Rep #: [id number] : 1950 M 68 From: Blade Myles MD PCP: Payam Ruvalcaba MD Status: REG ER Study: Chest PA and Lateral Date of Exam: 06/27/18 Exam# [id number] Ordering Dr: Tye Huggins MD STUDY: X-RAY CHEST REASON FOR EXAM: Male, 68 years old. Hypoxia. TECHNIQUE: AP and lateral views of the chest. COMPARISON: Comparison is made with prior study dated December 24, 2016. FINDINGS: EKG electrodes are seen. Hyperinflation. The lungs are clear. There is no demonstrated pleural abnormality. Normal size heart. Normal mediastinum and angel. Normal visualized pulmonary arteries. There is atherosclerotic calcification of the aortic arch with tortuosity. There is demineralization of the osseous structures. Normal visualized ribs, clavicles, and shoulders. There is no demonstrated abnormality of the visualized soft tissue structures of the upper abdomen. RAD/Chest PA and Lateral IMPRESSION: Hyperinflation. The lungs are clear. Electronically Signed: Blade Myles MD at 9:04 EDT Tel [phone], Service support , CC: Payam Ruvalcaba MD; Tye Huggins MD Stem Mounter: Signed CNPN Observed: 03/17/2018 Status: COMPLETED Source: [place] 12:00 AM CLINIC OTHER CAMPUS REPOSITORY Telephone ([id number]) GIANA TANG ([id number]) 1950 M NFR Date Time Provider Department 03/17/18 PRATIMA GORMAN AGSPINE3 During your visit today, we recorded the following information about you: Elham Deng 03/17/2018 2:13 PM Signed Gabapentin allergy. Patient states he had rash, hives,itching, trouble breathing, shakiness, trouble with eyesight. Medication has been stopped per patient. Elham Deng [place] to Dr. Vitaliy Hairston and Dr. Pratima Gorman [facility] [phone] ext [phone] Pratima Gorman MD 03/17/2018 4:22 PM Signed Noted, yes he should remain off the Gabapentin. Cymbalta was sent to his pharmacy to replace this for pain control. Pratima Gorman MD 03/17/2018 4:22 PM Signed Addended by: PRATIMA GORMAN MD on: 03/17/2018 04:22 PM Modules accepted: Orders Rupal Muñoz MA 03/17/2018 4:51 PM Signed Called the patient and LMOM for a call back SOLANGE Fong 03/18/2018 11:50 AM Signed Patient has been advised. Elham Deng [place] to Dr. Vitaliy Hairston and Dr. Pratima [facility] [phone] ext [phone] Allergies As of Date: 03/17/2018 Noted Allergy Reaction GABAPENTIN 03/17/2018 14 - Other: See Comments Comments: Rash, hives, itching, trouble breathing, shakiness, trouble with eyesight ARTHRITIS (HOMEOPATHIC PRODUCTS) 04/30/2006 ATARAX (HYDROXYZINE HCL) 06/27/2011 16 - Unknown CEFACLOR 04/30/2006 CHOLESTEROL 04/30/2006 Comments: any cholestrol lowering medication CIPRO (CIPROFLOXACIN) 04/30/2006 CREATINE MONOHYDRATE 07/17/2007 Comments: muscle spasms CRESTOR (ROSUVASTATIN CALCIUM) 06/27/2011 16 - Unknown DARVOCET A500 (PROPOXYPHENE N-DIANE*04/30/2006 Comments: Hives, airway closes DYE- red and yellow [Other] 06/27/2011 16 - Unknown ELAVIL (AMITRIPTYLINE HCL) 08/01/2007 Comments: Increased depression INFLUENZA VACCINE TRI-SP 09-10 08/28/2012 4 - Hives 14 - Other: See Comments Comments: Throat swelling IODINE (CONTRAST DYE) 04/30/2006 LATEX 04/30/2006 4 - Hives LEVAQUIN (LEVOFLOXACIN) 06/17/2014 16 - Unknown LIDOCAINE 04/30/2006 Comments: Close airway LIPITOR (ATORVASTATIN CALCIUM) 06/27/2011 16 - Unknown LOSARTAN 03/11/2017 4 - Hives LOVASTATIN 06/27/2011 16 - Unknown muscle relaxants [Other] 04/30/2006 NIACIN 06/27/2011 5 - Intolerance PENICILLINS 04/30/2006 4 - Hives Comments: Close airway PNEUMOVAX 23 (PNEUMOCOCCAL 23-RESHMA*06/27/2011 4 - Hives Comments: Also caused severe GI upset SIMVASTATIN 09/21/2013 4 - Hives 14 - Other: See Comments Comments: Gastrointestinal/colitis symptoms SULFA (SULFONAMIDE ANTIBIOTICS) 04/30/2006 TETANUS VACCINES AND TOXOID 04/08/2007 10 - Anaphylaxis TETRACYCLINE 04/30/2006 ZITHROMAX (AZITHROMYCIN) 04/30/2006 Date Reviewed: 03/12/2018 Reviewed by: Pratima Gorman - Fully Assessed Reason for Visit: Medication Problem [65] Primary Visit Diagnosis:Displacement of lumbar intervertebral disc without myelopathy [M51.26] Order(s):DULoxetine (CYMBALTA) 30 mg capsuleTake 1 capsule by mouth once daily.Disp: 30 capsuleRfl: 2 Prescriptions as of 03/17/2018 Sig: DULOXETINE 30 MG CAPSULE,BERNARDINO* Take 1 capsule by mouth once * GABAPENTIN 300 MG CAPSULE Take 1 capsule by mouth three* CLOPIDOGREL 75 MG TABLET Take 1 tablet by mouth once d* ASPIRIN 81 MG TABLET,DELAYED * Take 1 tablet by mouth once d* SPIRONOLACTONE 25 MG TABLET Take 1 tablet by mouth once d* METOPROLOL TARTRATE 50 MG TAB* Take 1 tablet by mouth three * PRAVASTATIN 40 MG TABLET Take 1 tablet by mouth once d* MESALAMINE 800 MG TABLET,BERNARDINO* Take 1 tablet by mouth twice * LISINOPRIL 20 MG TABLET Take 1 tablet by mouth twice * FLUCONAZOLE 150 MG TABLET Take 1 tablet by mouth once d* Patient not taking: Reported on 03/12/2018 ERYTHROMYCIN 250 MG TABLET,DE* TAKE ONE TABLET BY MOUTH FOUR* Patient not taking: Reported on 03/12/2018 COMPOUNDED PRESCRIPTION Kiarra. Apply as directed. Di* COLLAGENASE CLOSTRIDIUM HISTO* Apply 1 application to affect* HYDROCODONE 10 MG-ACETAMINOPH* Take 1 tablet by mouth every * Patient not taking: Reported on 03/12/2018 HYDROCODONE 10 MG-ACETAMINOPH* Take 1 tablet by mouth every * Patient not taking: Reported on 03/12/2018 HYDROCODONE 10 MG-ACETAMINOPH* Take 1 tablet by mouth every * Patient not taking: Reported on 03/12/2018 METFORMIN ER 500 MG TABLET,EX* Take 1 tablet by mouth three * DIAZEPAM 5 MG TABLET HYDROCODONE 10 MG-ACETAMINOPH* HYDROCODONE 10 MG-ACETAMINOPH* Take 1 tablet by mouth every * CHLORHEXIDINE GLUCONATE 0.12 * Use 15 mL as instructed twice* ACIDOPHILUS PROBIOTIC ORAL Take by mouth once daily. HYDROCHLOROTHIAZIDE 25 MG TAB* Take 1 tablet by mouth once d* Patient not taking: Reported on 03/12/2018 NITROGLYCERIN 0.4 MG SUBLINGU* Dissolve 1 tablet under the t* NYSTATIN-TRIAMCINOLONE 100,00* Apply 1-2 application to affe* LANCETS Patient test sugar level 3x d* BLOOD SUGAR DIAGNOSTIC STRIPS Use as instructed to check bl* * ALBUTEROL SULFATE HFA 90 MCG/* Inhale 2 Puffs as instructed * Problem List As Of Date 03/17/2018 Noted Resolved CHRONIC FATIGUE SYNDROME [R53.82] INVALID FOR* MYALGIA AND MYOSITIS NOS [NUO0951] INVALID FOR* Coronary atherosclerosis [I25.10] INVALID FOR* MIXED HYPERLIPIDEMIA [E78.2] INVALID FOR* BPH W/O URINARY OBS/LUTS [N40.0] INVALID FOR* UNILAT INGUINAL HERNIA [K40.90] INVALID FOR* 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] INVALID FOR* Shortness of breath [R06.02] Esophagitis, unspecified [K20.9] INVALID FOR* Environmental allergies [Z91.09] INVALID FOR* Hypogonadism male [E29.1] INVALID FOR* Occlusion and stenosis of carotid artery withou*INVALID FOR* Essential hypertension [I10] INVALID FOR* Hua's esophagus [K22.70] 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*INVALID FOR* Sprain, low back [S33.9XXA] INVALID FOR* Prescriptions ordered this encounter Disp Refills Start End DULOXETINE 30 MG CAPSULE,DELAYED REL* 30 c* 2 03/17/2018 06/15/2018 Route: ORAL Sig: Take 1 capsule by mouth once daily. Encounter Status:Closed by ELHAM DENG on 03/17/18 PROGRESS Observed: 03/12/2018 Status: COMPLETED Source: [place] 2:29 PM CLINIC OTHER CAMPUS REPOSITORY O ID: [id number] Author: Pratima Gorman Service: (none) Author Type: Physician Type: Progress Notes Filed: 03/12/2018 4:08 PM Note Text: Patient Name: Giana Tang Patient : 1950 Patient Age: [age] year old CC: Patient presents with: Low Back Pain Leg Pain SUBJECTIVE Patient presents as a [facility] consult complaining of a 30+year history of low back pain. The patient describes the pain as 7/10 throbbing, tingling, tender and achy. The patient described the injury as lifting a mower and twisted that caused the back pain. The patient reports that it gradually developed and has progressively become more severe. He has numbness, tingling, or weakness radiating into the left lower extremity to the foot. He has tried stim, PT- last done 8 years ago, chiropractic, heat, massage, manipulation and injections with some relief in the past. He previously saw Dr Feliciano how had him on Percocet which he took BID- last dose 1 week ago. The patient denies any bowel or bladder dysfunction. The patient denies any chest pain or chest tightness. The constitutional, musculoskeletal, and neurological review of systems was negative unless otherwise noted. The patient's past medical history, allergies, medication list, social history, and family medical history were documented, updated, and reviewed in the chart. [place]ARRS website checked and validated. All prescriptions have been APPROPRIATELY filled. No suspicious activity was identified.- 03/12/2018 by Pratima Gorman MD No imaging to review per patient he had lumbar MRI and EMG studies - will get copies of the records to review. Nursing Notes: Jerrod Howe (Sol[place]) 03/12/2018 2:27 PM Signed Review of Systems Constitutional: Negative for fatigue. Negative for fever. Negative for night sweats. Negative for weight gain. Positive for weight loss. HEENT: Negative for difficulty swallowing, Positive for headache, Negative for hearing loss, Negative for hoarseness, Negative for vision loss, Negative for glaucoma, and Positive for cataracts. Negative for blurred vision. Cardiovascular: Negative for chest pain. Negative for leg swelling. Negative for palpitations. Positive for tachycardia. Respiratory: Positive for cough.?Positive for shortness of breath. Gastrointestinal: Negative for constipation, Negative for diarrhea, Negative for nausea, Negative for vomiting. Negative for heartburn. Positive for loss of appetite. Negative for blood in stool. Negative for loss of control with bowel movement. Genitourinary: Negative for difficulty with urination, Positive for frequent urination, Negative for blood in urine, Negative for urinary incontinence, loss of control with urination. Endocrine/Hematoligic: Positive for bruising/bleeding easily. Negative for swollen lymph nodes. Psychiatric/Behavioral: Negative for depression, Negative for suicidal thoughts, Negative for insomnia, Negative for behavior changes, Positive for stress, Positive for nervousness. Musculoskeletal: Positive for joint pain, Positive for joint swelling, Positive for joint stiffness, Positive for restriction of joint movement, Positive for muscle weakness. Neurological: Negative for headaches. Positive for memory loss, Negative for seizures, Positive for numbness in extremities, Positive for incoordination, Negative for gait disturbance. Skin: Negative for rash, Negative for changes in moles, Positive for itching. ROS entered by: Dominique Howe MA Greenlight Questionnaire GREENLIGHT Completed Date 03/12/2018 Opioid Risk Tool Opiod Risk Tool Date Completed 03/12/2018 ALLERGIES Allergen Reactions - Arthritis [Homeopat* - Atarax [Hydroxyzine* Unknown - Cefaclor - Cholesterol any cholestrol lowering medication - Cipro [Ciprofloxaci* - Creatine Monohydrate muscle spasms - Crestor [Rosuvastat* Unknown - Darvocet A500 [Prop* Hives, airway closes - Dye- Red And Yellow* Unknown - Elavil [Amitriptyli* Increased depression - Influenza Vaccine T* Hives, Other: See Comments Throat swelling - Iodine [Contrast Dy* - Latex Hives - Levaquin [Levofloxa* Unknown - Lidocaine Close airway - Lipitor [Atorvastat* Unknown - Losartan Hives - Lovastatin Unknown - Muscle Relaxants [O* - Niacin Intolerance - Penicillins Hives Close airway - Pneumovax 23 [Pneum* Hives Also caused severe GI upset - Simvastatin Hives, Other: See Comments Gastrointestinal/colitis symptoms - Sulfa (Sulfonamide * - Tetanus Vaccines An* Anaphylaxis - Tetracycline - Zithromax [Azithrom* Current Outpatient Prescriptions: clopidogrel (PLAVIX) 75 mg tablet Take 1 tablet by mouth once daily. Disp: 90 tablet Rfl: 3 aspirin, enteric coated (ASPIRIN, ENTERIC COATED) 81 mg EC tablet Take 1 tablet by mouth once daily. Disp: 90 tablet Rfl: 3 spironolactone (ALDACTONE) 25 mg tablet Take 1 tablet by mouth once daily. Disp: 90 tablet Rfl: 3 metoprolol tartrate, short acting, (LOPRESSOR) 50 mg tablet Take 1 tablet by mouth three times daily. Disp: 270 tablet Rfl: 3 pravastatin (PRAVACHOL) 40 mg tablet Take 1 tablet by mouth once daily. Disp: 90 tablet Rfl: 3 mesalamine (ASACOL HD) 800 mg TbEC EC tablet Take 1 tablet by mouth twice daily. Disp: 180 tablet Rfl: 3 lisinopril (PRINIVIL) 20 mg tablet Take 1 tablet by mouth twice daily. Disp: 180 tablet Rfl: 3 COMPOUNDED PRESCRIPTION Kiarra. Apply as directed. Diabetic Foot Ulcer, Left foot. 1.6 cm x 1.3 cm x 0.1 cm. Disp: 1 Package Rfl: 11 collagenase (SANTYL) ointment Apply 1 application to affected area once daily. APPLY TO AFFECTED AREA Disp: 60 g Rfl: 2 metFORMIN ER (GLUCOPHAGE XR) 500 mg 24 hr tablet Take 1 tablet by mouth three times daily with meals. Disp: 90 tablet Rfl: 11 HYDROcodone-Acetaminophen (NORCO) 10-325 mg per tablet Disp: Rfl: HYDROcodone-Acetaminophen (NORCO) 10-325 mg per tablet Take 1 tablet by mouth every 6 hours as needed. Disp: 120 tablet Rfl: 0 Chlorhexidine Gluconate (PERIDEX) 0.12 % solution Use 15 mL as instructed twice daily. Disp: 473 mL Rfl: 11 L. ACIDOPHILUS/PECTIN, CITRUS (ACIDOPHILUS PROBIOTIC ORAL) Take by mouth once daily. Disp: Rfl: nitroglycerin sublingual 0.4 mg SL tablet Dissolve 1 tablet under the tongue every 5 minutes as needed for Chest Pain. Disp: 1 Bottle of 25 Rfl: 5 nystatin-triamcinolone cream Apply 1-2 application to affected area three times daily. Disp: 60 g Rfl: 3 Lancets (ONE TOUCH ULTRASOFT LANCETS) lancets Patient test sugar level 3x daily. Disp: 300 Each Rfl: 3 blood sugar diagnostic (ONE TOUCH ULTRA TEST) test strip Use as instructed to check blood sugars Disp: 300 Strip Rfl: 3 albuterol HFA (PROAIR HFA) 90 mcg/Actuation INHALATION inhaler Inhale 2 Puffs as instructed every 6 hours as needed. Disp: 1 Inhaler Rfl: 5 gabapentin (NEURONTIN) 300 mg capsule Take 1 capsule by mouth three times daily for 90 days. Disp: 90 capsule Rfl: 2 fluconazole (DIFLUCAN) 150 mg tablet Take 1 tablet by mouth once daily. (Patient not taking: Reported on 03/12/2018 ) Disp: 10 tablet Rfl: 0 erythromycin (SHAE-TAB) 250 mg EC tablet TAKE ONE TABLET BY MOUTH FOUR TIMES DAILY. TAKE THIS FIRST, THEN TAKE DIFLUCAN (Patient not taking: Reported on 03/12/2018 ) Disp: 40 tablet Rfl: 0 HYDROcodone-Acetaminophen (NORCO) 10-325 mg per tablet Take 1 tablet by mouth every 6 hours as needed. (Patient not taking: Reported on 03/12/2018 ) Disp: 120 tablet Rfl: 0 HYDROcodone-Acetaminophen (NORCO) 10-325 mg per tablet Take 1 tablet by mouth every 6 hours as needed. (Patient not taking: Reported on 03/12/2018 ) Disp: 120 tablet Rfl: 0 HYDROcodone-Acetaminophen (NORCO) 10-325 mg per tablet Take 1 tablet by mouth every 6 hours as needed. (Patient not taking: Reported on 03/12/2018 ) Disp: 120 tablet Rfl: 0 diazePAM (VALIUM) 5 mg tablet Disp: Rfl: hydrochlorothiazide (HYDRODIURIL, ESIDRIX) 25 mg tablet Take 1 tablet by mouth once daily. (Patient not taking: Reported on 03/12/2018 ) Disp: 90 tablet Rfl: 3 No current facility-administered medications for this visit. ACTIVE PROBLEM LIST Chronic Fatigue Syndrome Myalgia and Myositis, Unspecified Coronary Atherosclerosis Mixed Hyperlipidemia BPH W/O URINARY OBS/LUTS Inguinal Hernia Without Mention of Obstruction Or Gangrene, Unilateral Or Unspecified, (Not Specified As Recurrent) Scrotal Varices Shortness of Breath Esophagitis, Unspecified Environmental Allergies Hypogonadism Male Occlusion and Stenosis of Carotid Artery Without Mention of Cerebral Infarction Essential Hypertension Hua's Esophagus Degeneration of Lumbar Intervertebral Disc Sprain, Low Back Social History Marital status: Unknown Spouse name: Samanta Years of education: Number of children: 1 Occupational History Occupation Employer Comment retired Social History Main Topics Smoking status: Former Smoker Packs/day: 2.00 Years: 0.00 Types: Cigarettes Quit date: 06/04/2003 Smokeless tobacco: Never Used Comment: 2003 Alcohol use: No Drug use: No Other Topics Concern Caffeine Concern No Special Diet No Exercise No Family History Problem Relation Age of Onset - Emphysema Mother - Osteoporosis Mother - Heart Mother - Heart Father - Diabetes Brother - Heart Brother - Obesity Brother OBJECTIVE Vitals: BP 110/60 Resp 16 Ht 182.9 cm (6') Wt 93 kg (205 lb) BMI 27.80 kg/m? General: Alert, cooperative, well appearing, and in no apparent distress. Musculoskeletal: The patient's gait is normal Back: Inspection of the back demonstrates there is no obvious deformity or misalignment. There is bony tenderness along the lumbar vertebrae, none along the sacroiliac joints. There is bilateral L>R paraspinal muscle tenderness. Range of motion testing demonstrates full flexion, extension, side bending and rotation of the back. Pain with extension Strength is 5/5 in the lower extremity bilaterally. Sensation is intact throughout bilateral lower extremities. There is a negative straight leg raise and femoral stretch test. The piriformis has normal flexibility and is non-tender. Skin: The skin is without jaundice. It is intact without pathologic lesions, erythema, vesicles, discharge or rash. Palpitation of the skin is normal without induration, subcutaneous nodules or tightening. Extremities: This is no clubbing, cyanosis or edema. Peripheral pulses are 2+. Return in about 3 months (around 06/12/2018). ASSESSMENT/PLAN: 1. Displacement of lumbar intervertebral disc without myelopathy - ICD9: 722.10, ICD10: M51.26 (primary diagnosis) We discussed the natural history of this condition, differential diagnoses, and treatment options. Guidelines for activity were given. We discussed options for treatment including conservative care, medications with side effects and injections with risks and benefits. As his pain is more neurogenically mediated from the lumbar disc causing radicular pain I will change his percocet to Gabapentin for more targeted pain control. He is agreeable to stopping the opioid stating he would like to be off this any way. We discussed that I will review his prior imaging and we may consider epidural injection in the future if his pain is not improved with medications. As his injury was in 1984 it is difficult to say without reviewing all the records and prior imaging how this is related to his injury however the mechanism of his injury (lifting and twisting) is a common cause of disc herniation casing radicular symptoms which is what his pain is today and what the therapies are going to be directed towards. - GABAPENTIN 300 MG CAPSULE 2. Sprain, pelvic, initial encounter - ICD9: 848.5, ICD10: S33.8XXA Pratima Gorman MD CNOV Observed: 03/12/2018 Status: COMPLETED Source: [place] 2:15 PM CLINIC OTHER CAMPUS REPOSITORY Office Visit ([facility]) GIANA TANG ([id number]) 1950 M NFR Date Time Provider Department 03/12/18 2:15 PM PRATIMA GORMAN During your visit today, we recorded the following information about you: Respiration Blood pressure Weight Height 16/minute 110/60 93 kg 1.829 m Jerrod Howe ([place]) 03/12/2018 2:27 PM Signed Review of Systems Constitutional: Negative for fatigue. Negative for fever. Negative for night sweats. Negative for weight gain. Positive for weight loss. HEENT: Negative for difficulty swallowing, Positive for headache, Negative for hearing loss, Negative for hoarseness, Negative for vision loss, Negative for glaucoma, and Positive for cataracts. Negative for blurred vision. Cardiovascular: Negative for chest pain. Negative for leg swelling. Negative for palpitations. Positive for tachycardia. Respiratory: Positive for cough.?Positive for shortness of breath. Gastrointestinal: Negative for constipation, Negative for diarrhea, Negative for nausea, Negative for vomiting. Negative for heartburn. Positive for loss of appetite. Negative for blood in stool. Negative for loss of control with bowel movement. Genitourinary: Negative for difficulty with urination, Positive for frequent urination, Negative for blood in urine, Negative for urinary incontinence, loss of control with urination. Endocrine/Hematoligic: Positive for bruising/bleeding easily. Negative for swollen lymph nodes. Psychiatric/Behavioral: Negative for depression, Negative for suicidal thoughts, Negative for insomnia, Negative for behavior changes, Positive for stress, Positive for nervousness. Musculoskeletal: Positive for joint pain, Positive for joint swelling, Positive for joint stiffness, Positive for restriction of joint movement, Positive for muscle weakness. Neurological: Negative for headaches. Positive for memory loss, Negative for seizures, Positive for numbness in extremities, Positive for incoordination, Negative for gait disturbance. Skin: Negative for rash, Negative for changes in moles, Positive for itching. ROS entered by: SOLANGE Schwab Katherine 03/12/2018 4:08 PM Signed Patient Name: Giana Tang Patient : 1950 Patient Age: [age] year old CC: Patient presents with: Low Back Pain Leg Pain SUBJECTIVE Patient presents as a [facility] consult complaining of a 30+year history of low back pain. The patient describes the pain as 7/10 throbbing, tingling, tender and achy. The patient described the injury as lifting a mower and twisted that caused the back pain. The patient reports that it gradually developed and has progressively become more severe. He has numbness, tingling, or weakness radiating into the left lower extremity to the foot. He has tried stim, PT- last done 8 years ago, chiropractic, heat, massage, manipulation and injections with some relief in the past. He previously saw Dr Feliciano how had him on Percocet which he took BID- last dose 1 week ago. The patient denies any bowel or bladder dysfunction. The patient denies any chest pain or chest tightness. The constitutional, musculoskeletal, and neurological review of systems was negative unless otherwise noted. The patient's past medical history, allergies, medication list, social history, and family medical history were documented, updated, and reviewed in the chart. [place]RS website checked and validated. All prescriptions have been APPROPRIATELY filled. No suspicious activity was identified.- 03/12/2018 by Pratima Gorman MD No imaging to review per patient he had lumbar MRI and EMG studies - will get copies of the records to review. Nursing Notes: Jerrod Howe ([place]) 03/12/2018 2:27 PM Signed Review of Systems Constitutional: Negative for fatigue. Negative for fever. Negative for night sweats. Negative for weight gain. Positive for weight loss. HEENT: Negative for difficulty swallowing, Positive for headache, Negative for hearing loss, Negative for hoarseness, Negative for vision loss, Negative for glaucoma, and Positive for cataracts. Negative for blurred vision. Cardiovascular: Negative for chest pain. Negative for leg swelling. Negative for palpitations. Positive for tachycardia. Respiratory: Positive for cough.?Positive for shortness of breath. Gastrointestinal: Negative for constipation, Negative for diarrhea, Negative for nausea, Negative for vomiting. Negative for heartburn. Positive for loss of appetite. Negative for blood in stool. Negative for loss of control with bowel movement. Genitourinary: Negative for difficulty with urination, Positive for frequent urination, Negative for blood in urine, Negative for urinary incontinence, loss of control with urination. Endocrine/Hematoligic: Positive for bruising/bleeding easily. Negative for swollen lymph nodes. Psychiatric/Behavioral: Negative for depression, Negative for suicidal thoughts, Negative for insomnia, Negative for behavior changes, Positive for stress, Positive for nervousness. Musculoskeletal: Positive for joint pain, Positive for joint swelling, Positive for joint stiffness, Positive for restriction of joint movement, Positive for muscle weakness. Neurological: Negative for headaches. Positive for memory loss, Negative for seizures, Positive for numbness in extremities, Positive for incoordination, Negative for gait disturbance. Skin: Negative for rash, Negative for changes in moles, Positive for itching. ROS entered by: Dominique Howe MA Greenlight Questionnaire GREENLIGHT Completed Date 03/12/2018 Opioid Risk Tool Opiod Risk Tool Date Completed 03/12/2018 ALLERGIES Allergen Reactions - Arthritis [Homeopat* - Atarax [Hydroxyzine* Unknown - Cefaclor - Cholesterol any cholestrol lowering medication - Cipro [Ciprofloxaci* - Creatine Monohydrate muscle spasms - Crestor [Rosuvastat* Unknown - Darvocet A500 [Prop* Hives, airway closes - Dye- Red And Yellow* Unknown - Elavil [Amitriptyli* Increased depression - Influenza Vaccine T* Hives, Other: See Comments Throat swelling - Iodine [Contrast Dy* - Latex Hives - Levaquin [Levofloxa* Unknown - Lidocaine Close airway - Lipitor [Atorvastat* Unknown - Losartan Hives - Lovastatin Unknown - Muscle Relaxants [O* - Niacin Intolerance - Penicillins Hives Close airway - Pneumovax 23 [Pneum* Hives Also caused severe GI upset - Simvastatin Hives, Other: See Comments Gastrointestinal/colitis symptoms - Sulfa (Sulfonamide * - Tetanus Vaccines An* Anaphylaxis - Tetracycline - Zithromax [Azithrom* Current Outpatient Prescriptions: clopidogrel (PLAVIX) 75 mg tablet Take 1 tablet by mouth once daily. Disp: 90 tablet Rfl: 3 aspirin, enteric coated (ASPIRIN, ENTERIC COATED) 81 mg EC tablet Take 1 tablet by mouth once daily. Disp: 90 tablet Rfl: 3 spironolactone (ALDACTONE) 25 mg tablet Take 1 tablet by mouth once daily. Disp: 90 tablet Rfl: 3 metoprolol tartrate, short acting, (LOPRESSOR) 50 mg tablet Take 1 tablet by mouth three times daily. Disp: 270 tablet Rfl: 3 pravastatin (PRAVACHOL) 40 mg tablet Take 1 tablet by mouth once daily. Disp: 90 tablet Rfl: 3 mesalamine (ASACOL HD) 800 mg TbEC EC tablet Take 1 tablet by mouth twice daily. Disp: 180 tablet Rfl: 3 lisinopril (PRINIVIL) 20 mg tablet Take 1 tablet by mouth twice daily. Disp: 180 tablet Rfl: 3 COMPOUNDED PRESCRIPTION Kiarra. Apply as directed. Diabetic Foot Ulcer, Left foot. 1.6 cm x 1.3 cm x 0.1 cm. Disp: 1 Package Rfl: 11 collagenase (SANTYL) ointment Apply 1 application to affected area once daily. APPLY TO AFFECTED AREA Disp: 60 g Rfl: 2 metFORMIN ER (GLUCOPHAGE XR) 500 mg 24 hr tablet Take 1 tablet by mouth three times daily with meals. Disp: 90 tablet Rfl: 11 HYDROcodone-Acetaminophen (NORCO) 10-325 mg per tablet Disp: Rfl: HYDROcodone-Acetaminophen (NORCO) 10-325 mg per tablet Take 1 tablet by mouth every 6 hours as needed. Disp: 120 tablet Rfl: 0 Chlorhexidine Gluconate (PERIDEX) 0.12 % solution Use 15 mL as instructed twice daily. Disp: 473 mL Rfl: 11 L. ACIDOPHILUS/PECTIN, CITRUS (ACIDOPHILUS PROBIOTIC ORAL) Take by mouth once daily. Disp: Rfl: nitroglycerin sublingual 0.4 mg SL tablet Dissolve 1 tablet under the tongue every 5 minutes as needed for Chest Pain. Disp: 1 Bottle of 25 Rfl: 5 nystatin-triamcinolone cream Apply 1-2 application to affected area three times daily. Disp: 60 g Rfl: 3 Lancets (ONE TOUCH ULTRASOFT LANCETS) lancets Patient test sugar level 3x daily. Disp: 300 Each Rfl: 3 blood sugar diagnostic (ONE TOUCH ULTRA TEST) test strip Use as instructed to check blood sugars Disp: 300 Strip Rfl: 3 albuterol HFA (PROAIR HFA) 90 mcg/Actuation INHALATION inhaler Inhale 2 Puffs as instructed every 6 hours as needed. Disp: 1 Inhaler Rfl: 5 gabapentin (NEURONTIN) 300 mg capsule Take 1 capsule by mouth three times daily for 90 days. Disp: 90 capsule Rfl: 2 fluconazole (DIFLUCAN) 150 mg tablet Take 1 tablet by mouth once daily. (Patient not taking: Reported on 03/12/2018 ) Disp: 10 tablet Rfl: 0 erythromycin (SHAE-TAB) 250 mg EC tablet TAKE ONE TABLET BY MOUTH FOUR TIMES DAILY. TAKE THIS FIRST, THEN TAKE DIFLUCAN (Patient not taking: Reported on 03/12/2018 ) Disp: 40 tablet Rfl: 0 HYDROcodone-Acetaminophen (NORCO) 10-325 mg per tablet Take 1 tablet by mouth every 6 hours as needed. (Patient not taking: Reported on 03/12/2018 ) Disp: 120 tablet Rfl: 0 HYDROcodone-Acetaminophen (NORCO) 10-325 mg per tablet Take 1 tablet by mouth every 6 hours as needed. (Patient not taking: Reported on 03/12/2018 ) Disp: 120 tablet Rfl: 0 HYDROcodone-Acetaminophen (NORCO) 10-325 mg per tablet Take 1 tablet by mouth every 6 hours as needed. (Patient not taking: Reported on 03/12/2018 ) Disp: 120 tablet Rfl: 0 diazePAM (VALIUM) 5 mg tablet Disp: Rfl: hydrochlorothiazide (HYDRODIURIL, ESIDRIX) 25 mg tablet Take 1 tablet by mouth once daily. (Patient not taking: Reported on 03/12/2018 ) Disp: 90 tablet Rfl: 3 No current facility-administered medications for this visit. ACTIVE PROBLEM LIST Chronic Fatigue Syndrome Myalgia and Myositis, Unspecified Coronary Atherosclerosis Mixed Hyperlipidemia BPH W/O URINARY OBS/LUTS Inguinal Hernia Without Mention of Obstruction Or Gangrene, Unilateral Or Unspecified, (Not Specified As Recurrent) Scrotal Varices Shortness of Breath Esophagitis, Unspecified Environmental Allergies Hypogonadism Male Occlusion and Stenosis of Carotid Artery Without Mention of Cerebral Infarction Essential Hypertension Hua's Esophagus Degeneration of Lumbar Intervertebral Disc Sprain, Low Back Social History Marital status: Unknown Spouse name: Samanta Years of education: Number of children: 1 Occupational History Occupation Employer Comment retired Social History Main Topics Smoking status: Former Smoker Packs/day: 2.00 Years: 0.00 Types: Cigarettes Quit date: 06/04/2003 Smokeless tobacco: Never Used Comment: 2003 Alcohol use: No Drug use: No Other Topics Concern Caffeine Concern No Special Diet No Exercise No Family History Problem Relation Age of Onset - Emphysema Mother - Osteoporosis Mother - Heart Mother - Heart Father - Diabetes Brother - Heart Brother - Obesity Brother OBJECTIVE Vitals: BP 110/60 Resp 16 Ht 182.9 cm (6') Wt 93 kg (205 lb) BMI 27.80 kg/m? General: Alert, cooperative, well appearing, and in no apparent distress. Musculoskeletal: The patient's gait is normal Back: Inspection of the back demonstrates there is no obvious deformity or misalignment. There is bony tenderness along the lumbar vertebrae, none along the sacroiliac joints. There is bilateral L>R paraspinal muscle tenderness. Range of motion testing demonstrates full flexion, extension, side bending and rotation of the back. Pain with extension Strength is 5/5 in the lower extremity bilaterally. Sensation is intact throughout bilateral lower extremities. There is a negative straight leg raise and femoral stretch test. The piriformis has normal flexibility and is non-tender. Skin: The skin is without jaundice. It is intact without pathologic lesions, erythema, vesicles, discharge or rash. Palpitation of the skin is normal without induration, subcutaneous nodules or tightening. Extremities: This is no clubbing, cyanosis or edema. Peripheral pulses are 2+. Return in about 3 months (around 06/12/2018). ASSESSMENT/PLAN: 1. Displacement of lumbar intervertebral disc without myelopathy - ICD9: 722.10, ICD10: M51.26 (primary diagnosis) We discussed the natural history of this condition, differential diagnoses, and treatment options. Guidelines for activity were given. We discussed options for treatment including conservative care, medications with side effects and injections with risks and benefits. As his pain is more neurogenically mediated from the lumbar disc causing radicular pain I will change his percocet to Gabapentin for more targeted pain control. He is agreeable to stopping the opioid stating he would like to be off this any way. We discussed that I will review his prior imaging and we may consider epidural injection in the future if his pain is not improved with medications. As his injury was in 1984 it is difficult to say without reviewing all the records and prior imaging how this is related to his injury however the mechanism of his injury (lifting and twisting) is a common cause of disc herniation casing radicular symptoms which is what his pain is today and what the therapies are going to be directed towards. - GABAPENTIN 300 MG CAPSULE 2. Sprain, pelvic, initial encounter - ICD9: 848.5, ICD10: S33.8XXA Pratima Gorman MD Referring Provider: NILES FELICIANO JR ([facility]) [[id number]] Allergies As of Date: 03/12/2018 Noted Allergy Reaction ARTHRITIS (HOMEOPATHIC PRODUCTS) 04/30/2006 ATARAX (HYDROXYZINE HCL) 06/27/2011 16 - Unknown CEFACLOR 04/30/2006 CHOLESTEROL 04/30/2006 Comments: any cholestrol lowering medication CIPRO (CIPROFLOXACIN) 04/30/2006 CREATINE MONOHYDRATE 07/17/2007 Comments: muscle spasms CRESTOR (ROSUVASTATIN CALCIUM) 06/27/2011 16 - Unknown DARVOCET A500 (PROPOXYPHENE N-DIANE*04/30/2006 Comments: Hives, airway closes DYE- red and yellow [Other] 06/27/2011 16 - Unknown ELAVIL (AMITRIPTYLINE HCL) 08/01/2007 Comments: Increased depression INFLUENZA VACCINE TRI-SP 09-10 08/28/2012 4 - Hives 14 - Other: See Comments Comments: Throat swelling IODINE (CONTRAST DYE) 04/30/2006 LATEX 04/30/2006 4 - Hives LEVAQUIN (LEVOFLOXACIN) 06/17/2014 16 - Unknown LIDOCAINE 04/30/2006 Comments: Close airway LIPITOR (ATORVASTATIN CALCIUM) 06/27/2011 16 - Unknown LOSARTAN 03/11/2017 4 - Hives LOVASTATIN 06/27/2011 16 - Unknown muscle relaxants [Other] 04/30/2006 NIACIN 06/27/2011 5 - Intolerance PENICILLINS 04/30/2006 4 - Hives Comments: Close airway PNEUMOVAX 23 (PNEUMOCOCCAL 23-RESHMA*06/27/2011 4 - Hives Comments: Also caused severe GI upset SIMVASTATIN 09/21/2013 4 - Hives 14 - Other: See Comments Comments: Gastrointestinal/colitis symptoms SULFA (SULFONAMIDE ANTIBIOTICS) 04/30/2006 TETANUS VACCINES AND TOXOID 04/08/2007 10 - Anaphylaxis TETRACYCLINE 04/30/2006 ZITHROMAX (AZITHROMYCIN) 04/30/2006 Date Reviewed: 03/12/2018 Reviewed by: Pratima Gorman - Fully Assessed Reason for Visit: Low Back Pain [126] Leg Pain [1219] Primary Visit Diagnosis:Displacement of lumbar intervertebral disc without myelopathy [M51.26] Other Visit Diagnosis:Sprain, pelvic, initial encounter [S33.8XXA] Order(s):gabapentin (NEURONTIN) 300 mg capsuleTake 1 capsule by mouth three times daily for 90 days.Disp: 90 capsuleRfl: 2 Prescriptions as of 03/12/2018 Sig: CLOPIDOGREL 75 MG TABLET Take 1 tablet by mouth once d* ASPIRIN 81 MG TABLET,DELAYED * Take 1 tablet by mouth once d* SPIRONOLACTONE 25 MG TABLET Take 1 tablet by mouth once d* METOPROLOL TARTRATE 50 MG TAB* Take 1 tablet by mouth three * PRAVASTATIN 40 MG TABLET Take 1 tablet by mouth once d* MESALAMINE 800 MG TABLET,BERNARDINO* Take 1 tablet by mouth twice * LISINOPRIL 20 MG TABLET Take 1 tablet by mouth twice * COMPOUNDED PRESCRIPTION Kiarra. Apply as directed. Di* COLLAGENASE CLOSTRIDIUM HISTO* Apply 1 application to affect* METFORMIN ER 500 MG TABLET,EX* Take 1 tablet by mouth three * HYDROCODONE 10 MG-ACETAMINOPH* HYDROCODONE 10 MG-ACETAMINOPH* Take 1 tablet by mouth every * CHLORHEXIDINE GLUCONATE 0.12 * Use 15 mL as instructed twice* ACIDOPHILUS PROBIOTIC ORAL Take by mouth once daily. NITROGLYCERIN 0.4 MG SUBLINGU* Dissolve 1 tablet under the t* NYSTATIN-TRIAMCINOLONE 100,00* Apply 1-2 application to affe* LANCETS Patient test sugar level 3x d* BLOOD SUGAR DIAGNOSTIC STRIPS Use as instructed to check bl* * ALBUTEROL SULFATE HFA 90 MCG/* Inhale 2 Puffs as instructed * GABAPENTIN 300 MG CAPSULE Take 1 capsule by mouth three* FLUCONAZOLE 150 MG TABLET Take 1 tablet by mouth once d* Patient not taking: Reported on 03/12/2018 ERYTHROMYCIN 250 MG TABLET,DE* TAKE ONE TABLET BY MOUTH FOUR* Patient not taking: Reported on 03/12/2018 HYDROCODONE 10 MG-ACETAMINOPH* Take 1 tablet by mouth every * Patient not taking: Reported on 03/12/2018 HYDROCODONE 10 MG-ACETAMINOPH* Take 1 tablet by mouth every * Patient not taking: Reported on 03/12/2018 HYDROCODONE 10 MG-ACETAMINOPH* Take 1 tablet by mouth every * Patient not taking: Reported on 03/12/2018 DIAZEPAM 5 MG TABLET HYDROCHLOROTHIAZIDE 25 MG TAB* Take 1 tablet by mouth once d* Patient not taking: Reported on 03/12/2018 Problem List As Of Date 03/12/2018 Noted Resolved CHRONIC FATIGUE SYNDROME [R53.82] INVALID FOR* MYALGIA AND MYOSITIS NOS [[id number]] INVALID FOR* Coronary atherosclerosis [I25.10] INVALID FOR* MIXED HYPERLIPIDEMIA [E78.2] INVALID FOR* BPH W/O URINARY OBS/LUTS [N40.0] INVALID FOR* UNILAT INGUINAL HERNIA [K40.90] INVALID FOR* 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] INVALID FOR* Shortness of breath [R06.02] Esophagitis, unspecified [K20.9] INVALID FOR* Environmental allergies [Z91.09] INVALID FOR* Hypogonadism male [E29.1] INVALID FOR* Occlusion and stenosis of carotid artery withou*INVALID FOR* Essential hypertension [I10] INVALID FOR* Hua's esophagus [K22.70] 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*INVALID FOR* Sprain, low back [S33.9XXA] INVALID FOR* Visit Notes: >> Jerrod Howe ([place]) SatMarch 12, 2018 2:21 PM Status: Signed Review of Systems Constitutional: Negative for fatigue. Negative for fever. Negative for night sweats. Negative for weight gain. Positive for weight loss. HEENT: Negative for difficulty swallowing, Positive for headache, Negative for hearing loss, Negative for hoarseness, Negative for vision loss, Negative for glaucoma, and Positive for cataracts. Negative for blurred vision. Cardiovascular: Negative for chest pain. Negative for leg swelling. Negative for palpitations. Positive for tachycardia. Respiratory: Positive for cough.?Positive for shortness of breath. Gastrointestinal: Negative for constipation, Negative for diarrhea, Negative for nausea, Negative for vomiting. Negative for heartburn. Positive for loss of appetite. Negative for blood in stool. Negative for loss of control with bowel movement. Genitourinary: Negative for difficulty with urination, Positive for frequent urination, Negative for blood in urine, Negative for urinary incontinence, loss of control with urination. Endocrine/Hematoligic: Positive for bruising/bleeding easily. Negative for swollen lymph nodes. Psychiatric/Behavioral: Negative for depression, Negative for suicidal thoughts, Negative for insomnia, Negative for behavior changes, Positive for stress, Positive for nervousness. Musculoskeletal: Positive for joint pain, Positive for joint swelling, Positive for joint stiffness, Positive for restriction of joint movement, Positive for muscle weakness. Neurological: Negative for headaches. Positive for memory loss, Negative for seizures, Positive for numbness in extremities, Positive for incoordination, Negative for gait disturbance. Skin: Negative for rash, Negative for changes in moles, Positive for itching. ROS entered by: Dominique Howe MA Prescriptions ordered this encounter Disp Refills Start End GABAPENTIN 300 MG CAPSULE 90 c* 2 03/12/2018 06/10/2018 Route: ORAL Sig: Take 1 capsule by mouth three times daily for 90 days. Disposition: Return in about 3 months (around 06/12/2018). Follow-up and Disposition History Recorded Encounter Status:Closed by PRATIMA GORMAN MD on 03/12/18 HOSP Observed: 01/21/2018 Status: COMPLETED Source: [place] 12:00 AM [facility] REPOSITORY Patient Update ([facility]) GIANA TANG ([id number]) 1950 M NFR Date Time Provider Department 01/21/18 PRATIMA GORMAN [facility] During your visit today, we recorded the following information about you: Edith Silva MA 01/21/2018 10:07 AM Signed [facility] website checked and validated. - 01/21/2018 by Edith Silva MA Allergies As of Date: 01/21/2018 Noted Allergy Reaction ARTHRITIS (HOMEOPATHIC PRODUCTS) 04/30/2006 ATARAX (HYDROXYZINE HCL) 06/27/2011 16 - Unknown CEFACLOR 04/30/2006 CHOLESTEROL 04/30/2006 Comments: any cholestrol lowering medication CIPRO (CIPROFLOXACIN) 04/30/2006 CREATINE MONOHYDRATE 07/17/2007 Comments: muscle spasms CRESTOR (ROSUVASTATIN CALCIUM) 06/27/2011 16 - Unknown DARVOCET A500 (PROPOXYPHENE N-DIANE*04/30/2006 Comments: Hives, airway closes DYE- red and yellow [Other] 06/27/2011 16 - Unknown ELAVIL (AMITRIPTYLINE HCL) 08/01/2007 Comments: Increased depression INFLUENZA VACCINE TRI-SP -08/28/2012 4 - Hives 14 - Other: See Comments Comments: Throat swelling IODINE (CONTRAST DYE) 04/30/2006 LATEX 04/30/2006 4 - Hives LEVAQUIN (LEVOFLOXACIN) 06/17/2014 16 - Unknown LIDOCAINE 04/30/2006 Comments: Close airway LIPITOR (ATORVASTATIN CALCIUM) 06/27/2011 16 - Unknown LOSARTAN 03/11/2017 4 - Hives LOVASTATIN 06/27/2011 16 - Unknown NIACIN 06/27/2011 5 - Intolerance PENICILLINS 04/30/2006 4 - Hives Comments: Close airway PNEUMOVAX 23 (PNEUMOCOCCAL 23-RESHMA*06/27/2011 4 - Hives Comments: Also caused severe GI upset SIMVASTATIN 09/21/2013 4 - Hives 14 - Other: See Comments Comments: Gastrointestinal/colitis symptoms SULFA (SULFONAMIDE ANTIBIOTICS) 04/30/2006 TETANUS VACCINES AND TOXOID 04/08/2007 10 - Anaphylaxis TETRACYCLINE 04/30/2006 ZITHROMAX (AZITHROMYCIN) 04/30/2006 muscle relaxants [Other] 04/30/2006 Date Reviewed: 09/24/2017 Reviewed by: Ree Marc RN - Fully Assessed Reason for Visit: OARRS [[id number]] Prescriptions as of 01/21/2018 Sig: METOPROLOL TARTRATE 50 MG TAB* Take 1 tablet by mouth three * PRAVASTATIN 40 MG TABLET Take 1 tablet by mouth once d* ASPIRIN 81 MG TABLET,DELAYED * Take 1 tablet by mouth once d* CLOPIDOGREL 75 MG TABLET Take 1 tablet by mouth once d* MESALAMINE 800 MG TABLET,BERNARDINO* Take 1 tablet by mouth twice * LISINOPRIL 20 MG TABLET Take 1 tablet by mouth twice * FLUCONAZOLE 150 MG TABLET Take 1 tablet by mouth once d* ERYTHROMYCIN 250 MG TABLET,DE* TAKE ONE TABLET BY MOUTH FOUR* COMPOUNDED PRESCRIPTION Kiarra. Apply as directed. Di* COLLAGENASE CLOSTRIDIUM HISTO* Apply 1 application to affect* HYDROCODONE 10 MG-ACETAMINOPH* Take 1 tablet by mouth every * HYDROCODONE 10 MG-ACETAMINOPH* Take 1 tablet by mouth every * HYDROCODONE 10 MG-ACETAMINOPH* Take 1 tablet by mouth every * METFORMIN ER 500 MG TABLET,EX* Take 1 tablet by mouth three * SPIRONOLACTONE 25 MG TABLET Take 1 tablet by mouth once d* DIAZEPAM 5 MG TABLET HYDROCODONE 10 MG-ACETAMINOPH* HYDROCODONE 10 MG-ACETAMINOPH* Take 1 tablet by mouth every * CHLORHEXIDINE GLUCONATE 0.12 * Use 15 mL as instructed twice* ACIDOPHILUS PROBIOTIC ORAL Take by mouth once daily. HYDROCHLOROTHIAZIDE 25 MG TAB* Take 1 tablet by mouth once d* NITROGLYCERIN 0.4 MG SUBLINGU* Dissolve 1 tablet under the t* NYSTATIN-TRIAMCINOLONE 100,00* Apply 1-2 application to affe* LANCETS Patient test sugar level 3x d* BLOOD SUGAR DIAGNOSTIC STRIPS Use as instructed to check bl* * ALBUTEROL SULFATE HFA 90 MCG/* Inhale 2 Puffs as instructed * Problem List As Of Date 01/21/2018 Noted Resolved CHRONIC FATIGUE SYNDROME [R53.82] INVALID FOR* MYALGIA AND MYOSITIS NOS [[id number]] INVALID FOR* Coronary atherosclerosis [I25.10] INVALID FOR* MIXED HYPERLIPIDEMIA [E78.2] INVALID FOR* BPH W/O URINARY OBS/LUTS [N40.0] INVALID FOR* UNILAT INGUINAL HERNIA [K40.90] INVALID FOR* 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 - 01/21/2018 by Edith Silva MA Encounter Status:Closed by EDITH SILVA MA on 01/21/18 CNPN Observed: 12/24/2017 Status: COMPLETED Source: [place] 12:00 AM [facility] REPOSITORY [facility] GIANA TANG ([id number]) 1950 M NFR Date Time Provider Department 12/24/17 PAYAM RUVALCABA [facility] During your visit today, we recorded the following information about you: Essie Reich [employer] 12/24/2017 10:22 AM Signed Patient calling needs PCP to go on line to [employer] and go to pharmacy section and get statin medication form to complete, so patient does not have to pay for the Pravastatin rx. Patient said Dr has to do this, patient does not have computer. Patient said Dr has done this before for him. Payam Ruvalcaba MD 12/24/2017 1:37 PM Signed Can we do this? MD Shanika Anderson Ma 12/24/2017 1:55 PM Signed This MA went to [employer] and printed of a form for Statin Preventive Medications Enrollment form. Message left for pt to call office back and verify If this is the correct form. Shanika Landry Ma 12/24/2017 3:59 PM Signed This form was completed and signed by provider. Faxed back to [employer]. Shanika Wyatt Ma 12/26/2017 10:13 AM Signed Received approval for medication starting 12/24/17 through 12/24/22 for Pravastatin. Paperwork sent to scanning. Brittanie Wyatt Ma Allergies As of Date: 12/24/2017 Noted Allergy Reaction ARTHRITIS (HOMEOPATHIC PRODUCTS) 04/30/2006 ATARAX (HYDROXYZINE HCL) 06/27/2011 16 - Unknown CEFACLOR 04/30/2006 CHOLESTEROL 04/30/2006 Comments: any cholestrol lowering medication CIPRO (CIPROFLOXACIN) 04/30/2006 CREATINE MONOHYDRATE 07/17/2007 Comments: muscle spasms CRESTOR (ROSUVASTATIN CALCIUM) 06/27/2011 16 - Unknown DARVOCET A500 (PROPOXYPHENE N-DIANE*04/30/2006 Comments: Hives, airway closes DYE- red and yellow [Other] 06/27/2011 16 - Unknown ELAVIL (AMITRIPTYLINE HCL) 08/01/2007 Comments: Increased depression INFLUENZA VACCINE TRI-SP -08/28/2012 4 - Hives 14 - Other: See Comments Comments: Throat swelling IODINE (CONTRAST DYE) 04/30/2006 LATEX 04/30/2006 4 - Hives LEVAQUIN (LEVOFLOXACIN) 06/17/2014 16 - Unknown LIDOCAINE 04/30/2006 Comments: Close airway LIPITOR (ATORVASTATIN CALCIUM) 06/27/2011 16 - Unknown LOSARTAN 03/11/2017 4 - Hives LOVASTATIN 06/27/2011 16 - Unknown NIACIN 06/27/2011 5 - Intolerance PENICILLINS 04/30/2006 4 - Hives Comments: Close airway PNEUMOVAX 23 (PNEUMOCOCCAL 23-RESHMA*06/27/2011 4 - Hives Comments: Also caused severe GI upset SIMVASTATIN 09/21/2013 4 - Hives 14 - Other: See Comments Comments: Gastrointestinal/colitis symptoms SULFA (SULFONAMIDE ANTIBIOTICS) 04/30/2006 TETANUS VACCINES AND TOXOID 04/08/2007 10 - Anaphylaxis TETRACYCLINE 04/30/2006 ZITHROMAX (AZITHROMYCIN) 04/30/2006 muscle relaxants [Other] 04/30/2006 Date Reviewed: 09/24/2017 Reviewed by: Ree Marc RN - Fully Assessed Reason for Visit: needs PCP to go on line and request form [Other] Prescriptions as of 12/24/2017 Sig: METOPROLOL TARTRATE 50 MG TAB* Take 1 tablet by mouth three * PRAVASTATIN 40 MG TABLET Take 1 tablet by mouth once d* ASPIRIN 81 MG TABLET,DELAYED * Take 1 tablet by mouth once d* CLOPIDOGREL 75 MG TABLET Take 1 tablet by mouth once d* MESALAMINE 800 MG TABLET,BERNARDINO* Take 1 tablet by mouth twice * LISINOPRIL 20 MG TABLET Take 1 tablet by mouth twice * FLUCONAZOLE 150 MG TABLET Take 1 tablet by mouth once d* ERYTHROMYCIN 250 MG TABLET,DE* TAKE ONE TABLET BY MOUTH FOUR* COMPOUNDED PRESCRIPTION Kiarra. Apply as directed. Di* COLLAGENASE CLOSTRIDIUM HISTO* Apply 1 application to affect* HYDROCODONE 10 MG-ACETAMINOPH* Take 1 tablet by mouth every * HYDROCODONE 10 MG-ACETAMINOPH* Take 1 tablet by mouth every * HYDROCODONE 10 MG-ACETAMINOPH* Take 1 tablet by mouth every * METFORMIN ER 500 MG TABLET,EX* Take 1 tablet by mouth three * SPIRONOLACTONE 25 MG TABLET Take 1 tablet by mouth once d* DIAZEPAM 5 MG TABLET HYDROCODONE 10 MG-ACETAMINOPH* HYDROCODONE 10 MG-ACETAMINOPH* Take 1 tablet by mouth every * CHLORHEXIDINE GLUCONATE 0.12 * Use 15 mL as instructed twice* ACIDOPHILUS PROBIOTIC ORAL Take by mouth once daily. HYDROCHLOROTHIAZIDE 25 MG TAB* Take 1 tablet by mouth once d* NITROGLYCERIN 0.4 MG SUBLINGU* Dissolve 1 tablet under the t* NYSTATIN-TRIAMCINOLONE 100,00* Apply 1-2 application to affe* LANCETS Patient test sugar level 3x d* BLOOD SUGAR DIAGNOSTIC STRIPS Use as instructed to check bl* * ALBUTEROL SULFATE HFA 90 MCG/* Inhale 2 Puffs as instructed * Problem List As Of Date 12/24/2017 Noted Resolved CHRONIC FATIGUE SYNDROME [R53.82] INVALID FOR* MYALGIA AND MYOSITIS NOS [[id number]] INVALID FOR* Coronary atherosclerosis [I25.10] INVALID FOR* MIXED HYPERLIPIDEMIA [E78.2] INVALID FOR* BPH W/O URINARY OBS/LUTS [N40.0] INVALID FOR* UNILAT INGUINAL HERNIA [K40.90] INVALID FOR* 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] INVALID FOR* Shortness of breath [R06.02] Esophagitis, unspecified [K20.9] INVALID FOR* Environmental allergies [Z91.09] INVALID FOR* Hypogonadism male [E29.1] INVALID FOR* Occlusion and stenosis of carotid artery withou*INVALID FOR* Essential hypertension [I10] INVALID FOR* Hua's esophagus [K22.70] 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*INVALID FOR* Sprain, low back [S33.9XXA] INVALID FOR* Encounter Status:Closed by SHANIKA LANDRY MA on 12/24/17 OBSOLETE Observed: 12/02/2017 Status: COMPLETED Source: [place] 12:00 AM [facility] REPOSITORY Refill ([facility]) GIANA TANG ([id number]) 1950 M NFR Date Time Provider Department 12/02/17 PAYAM RUVALCABA [facility] During your visit today, we recorded the following information about you: Karen Raman Psr 12/02/2017 8:45 AM Signed Patient has been identified by name and date of : Yes Pending Prescriptions Disp Refills ASPIRIN 81 MG TABLET,DELAYED RELEASE 90 tablet 0 Sig: Take 1 tablet by mouth once daily. MITCHELL: No CLOPIDOGREL 75 MG TABLET 90 tablet 0 Sig: Take 1 tablet by mouth once daily. MITCHELL: No RX INSTRUCTIONS: Patient aware RX will be sent to pharmacy. No need to notify patient. Karen Lamine Psr Evelyn Jain Cma 12/02/2017 11:38 AM Signed Patient has been identified by name and date of : Yes Pending Prescriptions Disp Refills ASPIRIN 81 MG TABLET,DELAYED RELEASE 90 tablet 0 Sig: Take 1 tablet by mouth once daily. MITCHELL: No CLOPIDOGREL 75 MG TABLET 90 tablet 0 Sig: Take 1 tablet by mouth once daily. MITCHELL: No RX INSTRUCTIONS: Patient aware RX will be sent to pharmacy. No need to notify patient. Last visit 11/23/16 No future visit Last filled both Rx on 09/03/17 90 with 0 Evelyn Faria CNP, CNP 12/02/2017 12:19 PM Signed The following approved medication requests have been transmitted electronically. Signed Prescriptions Disp Refills aspirin, enteric coated (ASPIRIN, ENTERIC COATED) 81 mg EC tablet 90 tablet 0 Sig: Take 1 tablet by mouth once daily. MITCHELL: No Authorizing Provider: PROSPER FARIA (MADELYN) clopidogrel (PLAVIX) 75 mg tablet 90 tablet 0 Sig: Take 1 tablet by mouth once daily. MITCHELL: No Authorizing Provider: PROSPER FARIA (MADELYN) Prosper Faria CNP Allergies As of Date: 12/02/2017 Noted Allergy Reaction ARTHRITIS (HOMEOPATHIC PRODUCTS) 04/30/2006 ATARAX (HYDROXYZINE HCL) 06/27/2011 16 - Unknown CEFACLOR 04/30/2006 CHOLESTEROL 04/30/2006 Comments: any cholestrol lowering medication CIPRO (CIPROFLOXACIN) 04/30/2006 CREATINE MONOHYDRATE 07/17/2007 Comments: muscle spasms CRESTOR (ROSUVASTATIN CALCIUM) 06/27/2011 16 - Unknown DARVOCET A500 (PROPOXYPHENE N-DIANE*04/30/2006 Comments: Hives, airway closes DYE- red and yellow [Other] 06/27/2011 16 - Unknown ELAVIL (AMITRIPTYLINE HCL) 08/01/2007 Comments: Increased depression INFLUENZA VACCINE TRI-SP 09-10 08/28/2012 4 - Hives 14 - Other: See Comments Comments: Throat swelling IODINE (CONTRAST DYE) 04/30/2006 LATEX 04/30/2006 4 - Hives LEVAQUIN (LEVOFLOXACIN) 06/17/2014 16 - Unknown LIDOCAINE 04/30/2006 Comments: Close airway LIPITOR (ATORVASTATIN CALCIUM) 06/27/2011 16 - Unknown LOSARTAN 03/11/2017 4 - Hives LOVASTATIN 06/27/2011 16 - Unknown NIACIN 06/27/2011 5 - Intolerance PENICILLINS 04/30/2006 4 - Hives Comments: Close airway PNEUMOVAX 23 (PNEUMOCOCCAL 23-RESHMA*06/27/2011 4 - Hives Comments: Also caused severe GI upset SIMVASTATIN 09/21/2013 4 - Hives 14 - Other: See Comments Comments: Gastrointestinal/colitis symptoms SULFA (SULFONAMIDE ANTIBIOTICS) 04/30/2006 TETANUS VACCINES AND TOXOID 04/08/2007 10 - Anaphylaxis TETRACYCLINE 04/30/2006 ZITHROMAX (AZITHROMYCIN) 04/30/2006 muscle relaxants [Other] 04/30/2006 Date Reviewed: 09/24/2017 Reviewed by: Ree Marc RN - Fully Assessed Reason for Visit: Refill Request [94] Order(s):aspirin, enteric coated (ASPIRIN, ENTERIC COATED) 81 mg EC tabletTake 1 tablet by mouth once daily.Disp: 90 tabletRfl: 0 clopidogrel (PLAVIX) 75 mg tabletTake 1 tablet by mouth once daily.Disp: 90 tabletRfl: 0 Prescriptions as of 12/02/2017 Sig: ASPIRIN 81 MG TABLET,DELAYED * Take 1 tablet by mouth once d* CLOPIDOGREL 75 MG TABLET Take 1 tablet by mouth once d* MESALAMINE 800 MG TABLET,BERNARDINO* Take 1 tablet by mouth twice * LISINOPRIL 20 MG TABLET Take 1 tablet by mouth twice * METOPROLOL TARTRATE 50 MG TAB* Take 1 tablet by mouth three * PRAVASTATIN 40 MG TABLET Take 1 tablet by mouth once d* FLUCONAZOLE 150 MG TABLET Take 1 tablet by mouth once d* ERYTHROMYCIN 250 MG TABLET,DE* TAKE ONE TABLET BY MOUTH FOUR* COMPOUNDED PRESCRIPTION Kiarra. Apply as directed. Di* COLLAGENASE CLOSTRIDIUM HISTO* Apply 1 application to affect* HYDROCODONE 10 MG-ACETAMINOPH* Take 1 tablet by mouth every * HYDROCODONE 10 MG-ACETAMINOPH* Take 1 tablet by mouth every * HYDROCODONE 10 MG-ACETAMINOPH* Take 1 tablet by mouth every * METFORMIN ER 500 MG TABLET,EX* Take 1 tablet by mouth three * SPIRONOLACTONE 25 MG TABLET Take 1 tablet by mouth once d* DIAZEPAM 5 MG TABLET HYDROCODONE 10 MG-ACETAMINOPH* HYDROCODONE 10 MG-ACETAMINOPH* Take 1 tablet by mouth every * CHLORHEXIDINE GLUCONATE 0.12 * Use 15 mL as instructed twice* ACIDOPHILUS PROBIOTIC ORAL Take by mouth once daily. HYDROCHLOROTHIAZIDE 25 MG TAB* Take 1 tablet by mouth once d* NITROGLYCERIN 0.4 MG SUBLINGU* Dissolve 1 tablet under the t* NYSTATIN-TRIAMCINOLONE 100,00* Apply 1-2 application to affe* LANCETS Patient test sugar level 3x d* BLOOD SUGAR DIAGNOSTIC STRIPS Use as instructed to check bl* * ALBUTEROL SULFATE HFA 90 MCG/* Inhale 2 Puffs as instructed * Problem List As Of Date 12/02/2017 Noted Resolved CHRONIC FATIGUE SYNDROME [R53.82] INVALID FOR* MYALGIA AND MYOSITIS NOS [[id number]] INVALID FOR* Coronary atherosclerosis [I25.10] INVALID FOR* MIXED HYPERLIPIDEMIA [E78.2] INVALID FOR* BPH W/O URINARY OBS/LUTS [N40.0] INVALID FOR* UNILAT INGUINAL HERNIA [K40.90] INVALID FOR* 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 Any refills authorized will be placed on file. Route: ORAL Sig: Take 1 tablet by mouth once daily. CLOPIDOGREL 75 MG TABLET 90 t* 0 12/02/2017 Cmt: This prescription was filled on 09/03/2017. Any refills authorized will be placed on file. Route: ORAL Sig: Take 1 tablet by mouth once daily. Medications Discontinued During This Encounter aspirin, enteric coated (ASPIRIN, EN* 90 t* 0 09/03/2017 12/02/2017 Cmt: This prescription was filled on 09/03/2017. Any refills authorized will be placed on file. Sig: Take 1 tablet by mouth once daily. Disc: Reason for discontinue is not on file. clopidogrel (PLAVIX) 75 mg tablet 90 t* 0 09/03/2017 12/02/2017 Cmt: This prescription was filled on 09/03/2017. Any refills authorized will be placed on file. Sig: Take 1 tablet by mouth once daily. Disc: Reason for discontinue is not on file. Encounter Status:Closed by PROSPER FARIA CNP on 12/02/17 OBSOLETE Observed: 11/28/2017 Status: COMPLETED Source: [place] 12:00 AM [facility] REPOSITORY Refill ([facility]) GIANA TANG ([id number]) 1950 M NFR Date Time Provider Department 11/28/17 PAYAM RUVALCABA During your visit today, we recorded the following information about you: Colette Ellis 11/28/2017 3:18 PM Signed Patient has been identified by name and date of : Yes Pending Prescriptions Disp Refills MESALAMINE 800 MG TABLET,DELAYED RELEASE Sig: Take 1 tablet by mouth twice daily. MITCHELL: No RX INSTRUCTIONS: Dr. Leger is no longer practicing in [place] and his insurance will not cover if patient see's him at the [facility]. He is asking if you can refill this medication? Please fill for the generic and dispense only 68 pills Patient aware RX will be sent to pharmacy. No need to notify patient. Colette Morales Psr Payam Ruvalcaba MD 11/28/2017 5:10 PM Signed OK to refill as ordered MD Shanika Anderson Ma 11/28/2017 5:10 PM Signed The following approved medication requests have been transmitted electronically. Signed Prescriptions Disp Refills mesalamine (ASACOL HD) 800 mg TbEC EC tablet 180 tablet 3 Sig: Take 1 tablet by mouth twice daily. MITCHELL: No Authorizing Provider: PAYAM RUVALCABA Ma Allergies As of Date: 11/28/2017 Noted Allergy Reaction ARTHRITIS (HOMEOPATHIC PRODUCTS) 04/30/2006 ATARAX (HYDROXYZINE HCL) 06/27/2011 16 - Unknown CEFACLOR 04/30/2006 CHOLESTEROL 04/30/2006 Comments: any cholestrol lowering medication CIPRO (CIPROFLOXACIN) 04/30/2006 CREATINE MONOHYDRATE 07/17/2007 Comments: muscle spasms CRESTOR (ROSUVASTATIN CALCIUM) 06/27/2011 16 - Unknown DARVOCET A500 (PROPOXYPHENE N-DIANE*04/30/2006 Comments: Hives, airway closes DYE- red and yellow [Other] 06/27/2011 16 - Unknown ELAVIL (AMITRIPTYLINE HCL) 08/01/2007 Comments: Increased depression INFLUENZA VACCINE TRI-SP -08/28/2012 4 - Hives 14 - Other: See Comments Comments: Throat swelling IODINE (CONTRAST DYE) 04/30/2006 LATEX 04/30/2006 4 - Hives LEVAQUIN (LEVOFLOXACIN) 06/17/2014 16 - Unknown LIDOCAINE 04/30/2006 Comments: Close airway LIPITOR (ATORVASTATIN CALCIUM) 06/27/2011 16 - Unknown LOSARTAN 03/11/2017 4 - Hives LOVASTATIN 06/27/2011 16 - Unknown NIACIN 06/27/2011 5 - Intolerance PENICILLINS 04/30/2006 4 - Hives Comments: Close airway PNEUMOVAX 23 (PNEUMOCOCCAL 23-RESHMA*06/27/2011 4 - Hives Comments: Also caused severe GI upset SIMVASTATIN 09/21/2013 4 - Hives 14 - Other: See Comments Comments: Gastrointestinal/colitis symptoms SULFA (SULFONAMIDE ANTIBIOTICS) 04/30/2006 TETANUS VACCINES AND TOXOID 04/08/2007 10 - Anaphylaxis TETRACYCLINE 04/30/2006 ZITHROMAX (AZITHROMYCIN) 04/30/2006 muscle relaxants [Other] 04/30/2006 Date Reviewed: 09/24/2017 Reviewed by: Ree Marc RN - Fully Assessed Reason for Visit: Refill Request [94] Order(s):mesalamine (ASACOL HD) 800 mg TbEC EC tabletTake 1 tablet by mouth twice daily.Disp: 180 tabletRfl: 3 Prescriptions as of 11/28/2017 Sig: MESALAMINE 800 MG TABLET,BERNARDINO* Take 1 tablet by mouth twice * LISINOPRIL 20 MG TABLET Take 1 tablet by mouth twice * METOPROLOL TARTRATE 50 MG TAB* Take 1 tablet by mouth three * PRAVASTATIN 40 MG TABLET Take 1 tablet by mouth once d* FLUCONAZOLE 150 MG TABLET Take 1 tablet by mouth once d* ERYTHROMYCIN 250 MG TABLET,DE* TAKE ONE TABLET BY MOUTH FOUR* CLOPIDOGREL 75 MG TABLET Take 1 tablet by mouth once d* ASPIRIN 81 MG TABLET,DELAYED * Take 1 tablet by mouth once d* COMPOUNDED PRESCRIPTION Kiarra. Apply as directed. Di* COLLAGENASE CLOSTRIDIUM HISTO* Apply 1 application to affect* HYDROCODONE 10 MG-ACETAMINOPH* Take 1 tablet by mouth every * HYDROCODONE 10 MG-ACETAMINOPH* Take 1 tablet by mouth every * HYDROCODONE 10 MG-ACETAMINOPH* Take 1 tablet by mouth every * METFORMIN ER 500 MG TABLET,EX* Take 1 tablet by mouth three * SPIRONOLACTONE 25 MG TABLET Take 1 tablet by mouth once d* DIAZEPAM 5 MG TABLET HYDROCODONE 10 MG-ACETAMINOPH* HYDROCODONE 10 MG-ACETAMINOPH* Take 1 tablet by mouth every * CHLORHEXIDINE GLUCONATE 0.12 * Use 15 mL as instructed twice* ACIDOPHILUS PROBIOTIC ORAL Take by mouth once daily. HYDROCHLOROTHIAZIDE 25 MG TAB* Take 1 tablet by mouth once d* NITROGLYCERIN 0.4 MG SUBLINGU* Dissolve 1 tablet under the t* NYSTATIN-TRIAMCINOLONE 100,00* Apply 1-2 application to affe* LANCETS Patient test sugar level 3x d* BLOOD SUGAR DIAGNOSTIC STRIPS Use as instructed to check bl* * ALBUTEROL SULFATE HFA 90 MCG/* Inhale 2 Puffs as instructed * Problem List As Of Date 11/28/2017 Noted Resolved CHRONIC FATIGUE SYNDROME [R53.82] INVALID FOR* MYALGIA AND MYOSITIS NOS [NUQ0483] INVALID FOR* Coronary atherosclerosis [I25.10] INVALID FOR* MIXED HYPERLIPIDEMIA [E78.2] INVALID FOR* BPH W/O URINARY OBS/LUTS [N40.0] INVALID FOR* UNILAT INGUINAL HERNIA [K40.90] INVALID FOR* 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 Medications Discontinued During This Encounter Mesalamine (LIALDA) 1.2 gram EC tabl* 30 t* 3 01/19/2016 11/28/2017 Route: ORAL Sig: Take 1 tablet by mouth daily with breakfast for 30 days. Disc: Reason for discontinue is not on file. mesalamine (ASACOL HD) 800 mg TbEC E* 180 * 3 11/23/2016 11/28/2017 Route: ORAL Sig: Take 1 tablet by mouth twice daily. Disc: Reason for discontinue is not on file. Encounter Status:Closed by SHANIKA LANDRY MA on 11/28/17 ALLERGIES ALLERGIES DATE TYPE / CODE NAME / CODE REACTION SEVERITY SOURCE Drug hydroxyzine Unknown Unknown [facility] 8 Allergy/621060735( HCl/T247866488(RX [facility] NORM) [facility] Repository Drug amitriptyline Unknown Unknown [place] 8 Allergy/071399530( HCl/G646208202(RX [facility] NORM) [facility] Repository Drug propoxyphene Unknown Unknown [facility] 8 Allergy/720614601( napsylate/R583882 [facility]) 576(RXNORM) Hospital Repository Drug ciprofloxacin Unknown Unknown [place] 8 Allergy/608165262( HCl/W881303233(RX [facility]) NORM) [facility] Repository Drug quinapril Unknown Unknown [facility] 8 Allergy/171080257( HCl/T948063875(RX [facility] NORM) [facility] Repository Drug atorvastatin Unknown Unknown [facility] 8 Allergy/797100216( calcium/W32569698 [facility]) 2(RXNORM) Hospital Repository Drug rosuvastatin Unknown Unknown [facility] 8 Allergy/336205075( calcium/G39430932 [facility]) 3(RXNORM) Hospital Repository Drug Penicillins/F0010 Unknown Unknown [facility] 8 Allergy/951003361( 52301(RXNORM) [facility] Repository Drug Sulfa Unknown Unknown [place] 8 Allergy/091119279( (Sulfonamide [facility]) Antibiotics)/F001 Hospital 724680(RXNORM) Repository Drug Tetanus Vaccines Unknown Unknown [facility] 8 Allergy/095996184( and [facility]) Toxoid/U232082093 Hospital (RXNORM) Repository Drug iodine/H900175261 Unknown Unknown [facility] 8 Allergy/780313018( (RXNORM) [facility] Rep[facility] Drug niacin/S028446707 Unknown Unknown [place] 8 Allergy/387355397( (RXNORM) [facility] Repository Drug lidocaine/D491457 Unknown Unknown [place] 8 Allergy/590172354( 350(RXNORM) [facility] Rep[facility] Drug acetaminophen/F00 Unknown Unknown [facility] 8 Allergy/578227399( 3638863(RXNORM) [facility] Repository Drug lovastatin/F78108 Unknown Unknown [place] 8 Allergy/040721580( 2063(RXNORM) [facility] Rep[facility] Drug hydrochlorothiazi Unknown Unknown [place] 8 Allergy/358371191( de/P593317747(RXN [facility]) ORM) Hospital Repository Drug cefaclor/V6197582 Unknown Unknown [facility] 8 Allergy/711879356( 26(RXNORM) [facility] SNOMED CT) Hospital Repository Drug tetracycline/F006 Unknown Unknown [place] 8 Allergy/628978552( 163091(RXNORM) [facility] Repository Drug ciprofloxacin/F00 Unknown Unknown [place] 8 Allergy/967749634( 8573496(RXNORM) [facility] Rep[facility] Drug influenza virus Unknown Unknown [place] 8 Allergy/054779434( vaccine, [facility]) specific/C0421400 Hospital 29(RXNORM) Repository Drug fentanyl/C4817636 Unknown Unknown [place] 8 Allergy/137018805( 71(RXNORM) [facility] Rep[facility] Drug simvastatin/F0060 Unknown Unknown [facility] 8 Allergy/895356668( 06238(RXNORM) [facility] Repository Drug azithromycin/F006 Unknown Unknown [place] 8 Allergy/842447393( 746870(RXNORM) [facility] Repository Drug levofloxacin/F006 Unknown Unknown [place] 8 Allergy/688121827( 149376(RXNORM) [facility] Rep[facility] Drug pneumococcal Unknown Unknown [place] 8 Allergy/727605365( vaccine/U08871976 [facility]) 6(RXNORM) Hospital Repository Drug latex/M042644186( Unknown Unknown [facility] 8 Allergy/893660866( RXNORM) [facility] Rep[facility] Drug red Unknown Unknown [place] 8 Allergy/031552157( dye/N395143837(RX [facility]) NORM) Hospital Repository Drug yellow Unknown Unknown [place] 8 Allergy/904786596( dye/U920070324(RX [facility]) NORM) Hospital Repository Miscellaneous CREATINE Unknown Unknown [place] 8 Allergy/176561241( MONOHYDRATE [facility]) Hospital Repository DRUG GABAPENTIN OTHER: SEE [facility] [place] 8 INGREDI/447162226( Clinic Main SNOMED [facility]) [facility] DRUG LOSARTAN formerly [facility] 7 INGREDI/051039297( Clinic Main SNOMED [facility]) [facility] DRUG LEVOFLOXACIN UNKNOWN [place] 4 INGREDI/413987286( Clinic Main SNOMED [facility]) [facility] DRUG SIMVASTATIN formerly [facility] 3 INGREDI/610379863( [facility] Main SNOMED [facility]) [facility] DRUG/398642442(SNO INFLUENZA VACCINE HIVES [place] [address]) TRI-SP - Clinic Main [place] [facility] DRUG HYDROXYZINE HCL UNKNOWN [place] 1 INGREDI/800372521( [facility] SNOMED CT) [facility] DRUG ROSUVASTATIN UNKNOWN [place] 1 INGREDI/501620335( CALCIUM [facility] SNOMED [facility]) [facility] Miscellaneous OTHER UNKNOWN [place] 1 Allergy/113431949( [facility] Main SNOM[facility]) [facility] DRUG ATORVASTATIN UNKNOWN [place] 1 INGREDI/369753447( CALCIUM [facility] SNOM[facility]) [facility] DRUG LOVASTATIN UNKNOWN [place] 1 INGREDI/215606574( [facility] SNOM[facility]) [facility] DRUG NIACIN INTOLERANCE [place] 1 INGREDI/272987189( [facility] SNOM[facility]) [facility] DRUG/993517438(SNO PNEUMOCOCCAL HIVES [place] [address]) 23-RESHMA PS VACCINE [facility] Main [place] [facility] DRUG AMITRIPTYLINE HCL [place] 7 INGREDI/428578234( [facility] SNOMED [facility]) [facility] DRUG CREATINE [place] 7 INGREDI/304813529( MONOHYDRATE [facility] SNOMED [facility]) [facility] Drug TETANUS VACCINES ANAPHYLAXIS [place] 7 Class/895044400(SN AND TOXOID Clinic Main OMED CT) [facility] DRUG/769628376(SNO HOMEOPATHIC [place] [address]) PRODUCTS [facility] Main [place] [facility] DRUG CEFACLOR [place] 6 INGREDI/351711291( Clinic Main SNOMED [facility]) [facility] DRUG CHOLESTEROL [place] 6 INGREDI/660301525( Clinic Main SNOMED [facility]) [facility] DRUG CIPROFLOXACIN [place] 6 INGREDI/219407251( [facility] Main SNOMED [facility]) [facility] DRUG/967928436(SNO PROPOXYPHENE [place] [address]) N-ACETAMINOPHEN [facility] [place] [facility] DRUG CONTRAST DYE [place] 6 INGREDI/069614761( [facility] SNOM[facility]) [facility] DRUG LATEX HIVES [place] 6 INGREDI/374273761( [facility] Main SNOMED [facility]) [facility] DRUG LIDOCAINE [place] 6 INGREDI/153677868( [facility] Main SNOM[facility]) [facility] Miscellaneous OTHER [place] 6 Allergy/929960263( Clinic Main SNOMED [facility]) [facility] Drug PENICILLINS HIV[facility] [place] 6 Class/691165529(SN Clinic Main OMED CT) [facility] Drug SULFA [place] 6 Class/474483763(SN (SULFONAMIDE Clinic Main OMED CT) ANTIBIOTICS) [facility] DRUG TETRACYCLINE [place] 6 INGREDI/136425805( Clinic Main SNOMED [facility]) [facility] DRUG AZITHROMYCIN [place] 6 INGREDI/681172120( Clinic Main SNOMED CT) [facility] NG/361047805(SNOME GABAPENTIN [facility] Repository NG/223633186(SNOME HOMEOPATHIC [facility]) PRODUCTS [facility] Repository NG/788699979(SNOME HYDROXYZINE HCL [facility]) [facility] Repository NG/972661461(SNOME CEFACLOR [facility]) [facility] Repository NG/295790402(SNOME CHOLESTEROL [facility] Repository NG/086166185(SNOME CIPROFLOXACIN [facility]) [facility] Repository NG/127656695(SNOME CREATINE [facility]) MONOHYDRATE [facility] Repository NG/226881069(SNOME ROSUVASTATIN [facility]) CALCIUM [facility] Repository NG/755124274(SNOME PROPOXYPHENE [facility]) N-ACETAMINOPHEN Health System Repository NG/794808175(SNOME OTHER [facility]) [facility] Repository NG/497338760(SNOME AMITRIPTYLINE HCL [facility]) [facility] Repository NG/069134163(SNOME INFLUENZA VACCINE [facility]) TRI-SP 07-14 Health System Repository NG/849973611(SNOME CONTRAST DYE [facility] Repository NG/486846659(SNOME LATEX [facility]) [facility] Repository NG/602927658(SNOME LEVOFLOXACIN [facility]) [facility] Repository NG/571550550(SNOME LIDOCAINE [facility]) [facility] Repository NG/548427950(SNOME ATORVASTATIN [facility]) CALCIUM [facility] Repository NG/811740134(SNOME LOSARTAN [facility]) [facility] Repository NG/633166558(SNOME LOVASTATIN [facility]) [facility] Repository NG/731725909(SNOME NIACIN [facility]) [facility] Repository NG/937664282(SNOME PENICILLINS [facility]) [facility] Repository NG/954999428(SNOME PNEUMOCOCCAL [facility]) 23-RESHMA PS VACCINE [facility] Repository NG/723257836(SNOME SIMVASTATIN [facility]) [facility] Repository NG/876277639(SNOME SULFA [facility]) (SULFONAMIDE [facility] ANTIBIOTICS) Repository NG/390727370(SNOME TETANUS VACCINES [facility]) AND TOXOID Health System Repository NG/204664984(SNOME TETRACYCLINE [facility]) [facility] Repository NG/447840292(SNOME AZITHROMYCIN [facility]) [facility] System Repository ENCOUNTERS ENCOUNTERS ADMIT/DISCHARGE ACCOUNT NUMBER ADMITTING ENCOUNTER LOCATION SOURCE CLASS 11/14/2018 [id number] Ambulatory [facility] ding: Repository 10/22/2018 [id number] Ambulatory BMSBuilding: [facility] Repository 10/21/2018/11/03/20 [id number] Ambulatory [address] ding: Repository 10/21/2018 [id number] [facility] [place] Repository 10/20/2018/10/21/20 [id number] Ambulatory [address] Main [place] Repository 10/20/2018/10/20/20 [id number] Ambulatory [address] Main [place] Repository 10/20/2018/10/20/20 [id number] Ambulatory [address] Main [place] Repository 10/10/2018/10/13/20 [id number] Ambulatory [address] Main [place] Repository 10/03/2018/10/03/20 [id number] Ambulatory [address] Main [place] Repository 10/03/2018/10/06/20 [id number] Ambulatory [address] Main [place] Repository 09/08/2018/09/08/20 [id number] Ambulatory [address] Other [place] Repository 09/08/2018/09/08/20 [id number] Ambulatory [address] MEDICAL Repository CENTERBuildi ng:SPBA 06/27/2018/07/02/20 [id number] [place], Inpatient Kirsten Kirsten 18 Ghasem Encounter [facility] ding:PCURoom Repository : [id number]: 1 06/27/2018 [id number] [place], Ambulatory BMSBuilding: [facility] Ghasem BMS.[facility] Repository 06/27/2018 [id number] [place], Ambulatory BMSBuilding: [place] Ghasem BMS.[facility] Repository 06/27/2018 [id number] [place], Ambulatory BMSBuilding: Kirsten Ghasem BMS.[facility] Repository 06/27/2018 [id number] [place], Ambulatory BMSBuilding: [place] Ghasem BMS.[facility] Repository 06/27/2018 [id number] [place], Ambulatory BMSBuilding: Kirsten Ghasem BMS.[facility] Repository 06/27/2018 [id number] [place], Ambulatory BMSBuilding: [place] Ghasem BMS.[facility] Repository 06/27/2018 [id number] [place], Ambulatory BMSBuilding: Kirsten Ghasem BMS.[facility] Repository 06/27/2018 [id number] [place], Ambulatory BMSBuilding: Kirsten Ghasem BMS.[facility] Repository 06/27/2018 [id number] [place], Ambulatory BMSBuilding: [place] Ghasem BMS.[facility] Repository 06/27/2018 [id number] [place], Ambulatory BMSBuilding: Kirsten Ghasem BMS.[facility] Repository 06/27/2018 [id number] [place], Ambulatory BMSBuilding: Kirsten Ghasem BMS.[facility] Repository 06/27/2018 [id number] [place], Ambulatory BMSBuilding: Kirsten Ghasem BMS.[facility] Repository 06/27/2018 [id number] [place], Ambulatory BMSBuilding: [place] Ghasem BMS.[facility] Repository 06/27/2018 [id number] [place], Ambulatory BMSBuilding: Kirsten Ghasem BMS.CF.[facility] Repository 06/27/2018 [id number] [place], Ambulatory BMSBuilding: [place] Ghasem BMS.[facility] Repository 06/27/2018/07/02/20 [id number] Ambulatory BMSBuilding: [facility] Repository 06/27/2018/07/02/20 [id number] Ambulatory BMSBuilding: Kirsten [facility] Repository 06/27/2018/07/02/20 [id number] Ambulatory BMSBuilding: [place] 18 BMS.CF.[facility] Repository 06/27/2018/07/02/20 [id number] Ambulatory BMSBuilding: Kirsten 18 BMS.CF.[facility] Repository 06/09/2018 [id number] Ambulatory [facility] MEDICAL Repository CENTERBuildi ng:SPBA 03/12/2018/03/12/20 [id number] Ambulatory [address] Repository 03/12/2018/03/12/20 [id number] Ambulatory [address] MEDICAL Repository CENTERBuildi ng:SPBA 01/22/2018 [id number] Ambulatory [facility] Repository CENTERBuildi ng:AGSPINE3 12/23/2017 [id number] Ambulatory BMSBuilding: Kirsten BMS.[facility] Repository 12/20/2017 [id number] Ambulatory BMSBuilding: Kirsten BMS.[facility] Repository PAYERS PAYERS ENCOUNTER GUARANTOR PAYER SUBSCRIBER SOURCE 11/14/2018 GIANA J BRADYPO Primary GIANA J [place] [address], Insurance:AULTCAREMateusz [facility]: [facility] [address]Zlu: icy Number: [id number] Hospital [id number] Repository () Date:6681-33-02FS [address], [place] [address]BV: 11/14/2018 Secondary NOT GIVENUNK Carrier Insurance:SELF PAY [facility] Number: Effective Repository Date:2018-11-04 10/22/2018 GIANA J BRADYPO Primary GIANA J [place]irsten [address], Insurance:AULTCAREPol BRADYDOB: [place] [address]Kfe: icy Number: [id number] Hospital [id number] Repository (HP) Date:3988-89-22SC [address], [place] [address]VT: 10/22/2018 Secondary NOT GIVENUNK Kirsten Insurance:SELF PAY [facility] Number: Effective Repository Date:2018-10-22 10/21/2018 GIANA J BRADYPO Primary GIANA J Kirsten [address], Insurance:AULTCAREPol BRADYDOB: [place] [address]Ckc: icy Number: [id number] Hospital [id number] Repository (HP) Date:4864-47-63LA [address], [place] [address]BV: 10/21/2018 Secondary NOT GIVENUNK Carrier Insurance:SELF PAY [facility] Number: Effective Repository Date:2018-10-06 09/08/2018 GIANA J. Primary Insurance: GIANA JAruna [facility] BRADYDOB: [employer] BRADYDOB: [facility] [id number] [address] FECAPolic Number: [id number] Repository [place] [id number] [address]Ccm: (330) Date: [phone] () 06/27/2018 GIANA J BRADYPO Primary GIANA J Kirsten [address], Insurance:AULTCAREPol BRADYDOB: [place] [address]Uyd: icy Number: [id number] Hospital [id number] Repository (HP) Date:9915-19-48EH [address], [place] [address]UV: 06/27/2018 Secondary NOT GIVENUNK Carrier Insurance:SELF PAY [facility] Number: Effective Repository Date:2018-06-27 06/27/2018 Giana J BradyPo Primary Giana J Kirsten [address], Insurance:AULTCAREPol BradyDOB: [place] [address]Wyu: icy Number: [id number] Hospital [id number] Repository (HP) Date:9213-53-06QY [address] [address]GM: 06/27/2018 Secondary NOT GIVENUNK Kirsten Insurance:SELF PAY [facility] Number: Effective Repository Date:2018-06-27 06/27/2018 Giana J BradyPo Primary Giana J Kirsten [address], Insurance:AULTCAREPol BradyDOB: [place] [address]Vmg: icy Number: [id number] Hospital [id number] Repository (HP) Date:6249-58-18LI [address], [place] [address]PU: 06/27/2018 Secondary NOT GIVENUNK Kirsten Insurance:SELF PAY [facility] Number: Effective Repository Date:2018-06-27 06/27/2018 Giana J BradyPo Primary Giana J [place] [address], Insurance:AULTCAREPol BradyDOB: [place] [address]Pts: icy Number: [id number] Hospital [id number] Repository (HP) Date:5976-75-91SZ [address], [place] [address]VU: 06/27/2018 Secondary NOT GIVENUNK Carrier Insurance:SELF PAY [facility] Number: Effective Repository Date:2018-06-27 06/27/2018 Giana J BradyPo Primary Giana J [place] [address], Insurance:AULTCAREPol BradyDOB: [place] [address]Kib: icy Number: [id number] Hospital [id number] Repository (HP) Date:4766-32-09HX [address], [place] [address]FW: 06/27/2018 Secondary NOT GIVENUNK Kirsten Insurance:SELF PAY [facility] Number: Effective Repository Date:2018-06-27 06/27/2018 Giana J BradyPo Primary Giana J [place] [address], Insurance:AULTCAREPol BradyDOB: [place] [address]Ilm: icy Number: [id number] Hospital [id number] Repository (HP) Date:3252-67-77RV [facility] [address] [place] [address]NQ: 06/27/2018 Secondary NOT GIVENUNK Kirsten Insurance:SELF PAY [facility] Number: Effective Repository Date:2018-06-27 06/27/2018 Giana J BradyPo Primary Giana J Kirsten [address], Insurance:AULTCAREPol BradyDOB: [facility] [place] [address]Ixm: icy Number: [id number] Hospital [id number] Repository (HP) Date:5559-41-67KY [facility] [address] [address]NL: 06/27/2018 Secondary NOT GIVENUNK Kirsten Insurance:SELF PAY [facility] Number: Effective Repository Date:2018-06-27 06/27/2018 Giana J BradyPo Primary Giana J [place] [address], Insurance:AULTCAREPol BradyDOB: [facility] [place] [address]Cbe: icy Number: [id number] Hospital [id number] Repository (HP) Date:1347-45-49IQ [facility] [address], [place] [address]ZI: 06/27/2018 Secondary NOT GIVENUNK Kirsten Insurance:SELF PAY [facility] Number: Effective Repository Date:2018-06-27 06/27/2018 Giana J BradyPo Primary Giana J Kirsten [address], Insurance:AULTCAREPol BradyDOB: [place] [address]Bzw: icy Number: [id number] Hospital [id number] Repository (HP) Date:6480-71-96LH [address], [place] [address]HX: 06/27/2018 Secondary NOT GIVENUNK Kirsten Insurance:SELF PAY [facility] Number: Effective Repository Date:2018-06-27 06/27/2018 Giana J BradyPo Primary Giana J [place] [address], Insurance:AULTCAREPol BradyDOB: [place] [address]Tja: icy Number: [id number] Hospital [id number] Repository (HP) Date:5655-38-79NY [facility] [address] [place] [address]SG: 06/27/2018 Secondary NOT GIVENUNK Kirsten Insurance:SELF PAY [facility] Number: Effective Repository Date:2018-06-27 06/27/2018 Giana J BradyPo Primary Giana J Carrier [address], Insurance:AULTCAREPol BradyDOB: [place] [address]Lyd: icy Number: [id number] Hospital [id number] Repository (HP) Date:4150-59-34RH [facility] [address], [place] [address]AS: 06/27/2018 Secondary NOT GIVENUNK Kirsten Insurance:SELF PAY [facility] Number: Effective Repository Date:2018-06-27 06/27/2018 GIANA J BRADYPO Primary GIANA J Carrier [address], Insurance:AULTCAREPol BRADYDOB: [place] [address]Vcl: icy Number: [id number] Hospital [id number] Repository (HP) Date:1284-77-55AO [address], [place] [address]DN: 06/27/2018 Secondary NOT GIVENUNK Carrier Insurance:SELF PAY [facility] Number: Effective Repository Date:2018-06-27 06/27/2018 GIANA J BRADYPO Primary GIANA J Kirsten [address], Insurance:AULTCAREPol BRADYDOB: [place] [address]Nmu: icy Number: [id number] Hospital [id number] Repository (HP) Date:8611-88-95DF [address], [place] [address]VC: 06/27/2018 Secondary NOT GIVENUNK Carrier Insurance:SELF PAY [facility] Number: Effective Repository Date:2018-06-27 06/27/2018 GIANA J BRADYPO Primary GIANA J Kirsten [address], Insurance:AULTCAREPol BRADYDOB: [place] [address]Wae: icy Number: [id number] [facility] [id number] Repository (HP) Date:2328-81-56NE [address] [place] [address]ZU: 06/27/2018 Secondary NOT GIVENUNK Carrier Insurance:SELF PAY [facility] Number: Effective Repository Date:2018-06-27 06/27/2018 GIANA J BRADYPO Primary GIANA J Kirsten [address], Insurance:AULTCAREPol BRADYDOB: [place] [address]Nno: icy Number: [id number] [id number] Repository (HP) Date:2176-87-84KE [address], [place] [address]GS: 06/27/2018 Secondary NOT GIVENUNK Carrier Insurance:SELF PAY [facility] Number: Effective Repository Date:2018-06-27 06/27/2018 GIANA J BRADYPO Primary GIANA J Carrier [address], Insurance:AULTCAREPol [place]: [place] [address]Dhh: icy Number: [id number] [facility] [id number] Repository (HP) Date:[id number] [address], [place] [address]CX: 06/27/2018 Secondary NOT GIVENUNK Kirsten Insurance:SELF PAY [facility] Number: Effective Repository Date:2018-06-27 06/27/2018 GIANA J BRADYPO Primary GIANA J Carrier [address], Insurance:AULTCAREPol BRADYDOB: [place] [address]Pez: icy Number: [id number] Hospital [id number] Repository (HP) Date:[id number] [facility] [address] [place] [id number]: 06/27/2018 Secondary NOT GIVENUNK Kirsten Insurance:SELF PAY [facility] Number: Effective Repository Date:2018-06-27 06/27/2018 GIANA J BRADYPO Primary GIANA J Carrier [address], Insurance:AULTCAREPol BRADYDOB: [place] [address]Tuu: icy Number: [id number] [place] [id number] Repository (HP) Date:[id number] [facility] [address] [place] [id number]: 06/27/2018 Secondary NOT GIVENUNK Kirsten Insurance:SELF PAY [facility] Number: Effective Repository Date:2018-06-27 06/27/2018 GIANA J BRADYPO Primary GIANA J Carrier [address], Insurance:AULTCAREPol BRADYDOB: [facility] [place] [address]Dgn: icy Number: [id number] [place] [id number] Repository (HP) Date:[id number] [facility] [address] [address]FZ: 06/27/2018 Secondary NOT GIVENUNK Carrier Insurance:SELF PAY [facility] Number: Effective Repository Date:2018-06-27 06/27/2018 GIANA J BRADYPO Primary GIANA J Carrier [address], Insurance:AULTCAREPol BRADYDOB: [place] [address]Rcg: icy Number: [id number] [place] [id number] Repository (HP) Date:[id number] [facility] [address] [address]TT: 06/27/2018 Secondary NOT GIVENUNK Kirsten Insurance:SELF PAY [facility] Number: Effective Repository Date:2018-06-27 06/09/2018 GIANA Freya. Primary GIANA [facility] General BRADYDOB: Insurance:DEPT OF BRADYDOB: [facility] [id number] BOX LABORPolicy Number: [id number] [address]ository [address], [place] [id number] [address]Tsl: (330) Date: [phone] (HP) 03/12/2018 GIANA J. Primary Insurance: GIANA [facility] BRADYDOB: DEPT [employer] LABOR BRADYDOB: [facility] [id number] [address] FECAPolicy Number: [id number] [address]ository [address], [place] [id number]: (330) Date: [phone] (HP) 01/22/2018 GIANA J. Primary GIANA [facility] BRADYDOB: Insurance:AULTCAREPol BRADYDOB: [facility] [id number] BOX icy Number: [id number] [address]ository [address] [id number]: (330) Date: [phone] (HP) 12/23/2017 Giana Ferya BradyPo Primary Giana J Kirsten [address], Insurance:AULTCAREPol BradyDOB: [facility] [place] [address]Rrm: icy Number: [id number] Hospital [id number] Repository (HP) Date:[id number] [address] [place] [address]QM: 12/23/2017 Secondary NOT GIVENUNK Kirsten Insurance:SELF PAY [facility] Number: Effective Repository Date:2017-10-09 12/20/2017 Giana J BradyPo Primary Giana J Kirsten [address], Insurance:AULTCAREPol BradyDOB: [place] [address]Nct: icy Number: [id number] [facility] [id number] Repository (HP) Date:[id number] [address] [address]QE: 12/20/2017 Secondary NOT GIVENUNK Carrier Insurance:SELF PAY [facility] Number: Effective Repository Date:2017-12-20
== END 2018-11-03 23:59 ==
LOC: WC 13:37
PROVIDERS: Family Provider Family Medicine; PCP Family Medicine; Visit Provider Nurse Practitioner Family
DX: L84 Corns and callosities (principal); E11.42 Type 2 diabetes mellitus with diabetic polyneuropathy; I48.91 Unspecified atrial fibrillation; Z86.718 Personal history of other venous thrombosis and embolism; I10 Essential (primary) hypertension; E78.5 Hyperlipidemia, unspecified; Z87.891 Personal history of nicotine dependence
CPT/HCPCS: 99211; 99214; G0463

== ENCOUNTER 2021-09-08 07:36 | Inpatient (IN) | payer OTHER, MEDICARE, SELFPAY ==
[2021-09-08] VITALS (11 sets, daily range): BP systolic 106–162; BP diastolic 41–68; PULSE 58–66; RESP 16–20; TEMP 36.3–37.2; O2SAT 93–98; BMI 32.8; BMI 32.0
--- NOTE | 2021-09-08 07:47 | EKG12_ITS ---
Test Reason : WEAKNESS Blood Pressure : / mmHG Vent. Rate : 059 BPM Atrial Rate : 059 BPM P-R Int : 150 ms QRS Dur : 086 ms QT Int : 402 ms P-R-T Axes : 059 017 026 degrees QTc Int : 397 ms Sinus bradycardia Low voltage QRS (Limb Leads) Confirmed by BRIANNA GUERRERO, NILES ([id number]), features editor DANNA MILAN ([id number]) on 09/11/2021 11:01:26 AM Referred By: LONG Confirmed By:NILES REED MD
--- NOTE | 2021-09-08 07:48 | EX.ED.DYSGE1 ---
HPI History of Present Illness Chief Complaint: Weakness Informant: patient and EMS Onset/Context/Timing Onset: Days Current Severity: Moderate Maximum Severity: Moderate Narrative Narrative: Patient present secondary to generalized weakness. He states his legs and arms are weak. Has not been able to stand and walk around his home. Has been crawling on the floor. He reports fever as high as 103. Most recent fever was at 4 AM this morning, controlled with Tylenol and ibuprofen. Patient denies chest pain, shortness of breath, congestion or cough. No nausea or vomiting. He does report urinary urgency. [facility] Medical History Agent orange exposure Atherosclerosis of coronary artery of pal[place] heart without angina pectoris Carotid stenosis Chronic fatigue disorder COPD (chronic obstructive pulmonary disease) Esophagitis Hyperlipidemia Hypertension Non-rheumatic tricuspid valve insufficiency Nonrheumatic aortic valve insufficiency Peripheral vascular occlusive disease Type 2 diabetes mellitus without complications Home Medications albuterol sulfate [Ventolin HFA] 2 puff INHALATION PRN PRN 08/23/14 [History Last Taken 02/18/15] clopidogrel 75 mg PO DAILY 08/23/14 [History Last Taken 08/19/17] hydrocodone-acetaminophen 1 tab PO DAILY 08/23/14 [History Last Taken 08/22/17] pravastatin 80 mg PO QHS 08/23/14 [History Last Taken Unknown] metoprolol tartrate 50 mg PO BID 02/17/15 [History Last Taken 08/22/17] pantoprazole 40 mg PO DAILY #30 tab 07/02/18 [Rx Last Taken Unknown] rivaroxaban 15 mg PO BIDCM #42 tab 07/02/18 [Rx Last Taken Unknown] rivaroxaban 20 mg PO DAILY #30 tab 07/02/18 [Rx Last Taken Unknown] lisinopril 09/08/21 [History Last Taken Unknown] metformin mg PO 09/08/21 [History Last Taken Unknown] Allergy/AdvReac Type Severity Reaction Status Date / Time acetaminophen Allergy Unknown Unknown Verified 09/08/21 07:47 [From Darvocet-N] amitriptyline HCl Allergy Unknown Unknown Verified 09/08/21 07:47 [From Elavil] atorvastatin calcium Allergy Unknown Unknown Verified 09/08/21 07:47 [From Lipitor] azithromycin [From Zithromax] Allergy Unknown Unknown Verified 09/08/21 07:47 cefaclor [Cefaclor] Allergy Unknown Unknown Verified 09/08/21 07:47 ciprofloxacin [From Cipro] Allergy Unknown Unknown Verified 09/08/21 07:47 ciprofloxacin HCl Allergy Unknown Unknown Verified 09/08/21 07:47 [From Cipro] hydroxyzine HCl [From Atarax] Allergy Unknown Unknown Verified 09/08/21 07:47 influenza virus vaccine, Allergy Unknown Unknown Verified 09/08/21 07:47 specific [Influenza Virus Vacc,Specific] iodine Allergy Unknown Unknown Verified 09/08/21 07:47 latex Allergy Unknown Unknown Verified 09/08/21 07:47 levofloxacin [From Levaquin] Allergy Unknown Unknown Verified 09/08/21 07:47 lidocaine Allergy Unknown Unknown Verified 09/08/21 07:47 lovastatin Allergy Unknown Unknown Verified 09/08/21 07:47 niacin Allergy Unknown Unknown Verified 09/08/21 07:47 Penicillins Allergy Unknown Unknown Verified 09/08/21 07:47 pneumococcal vaccine Allergy Unknown Unknown Verified 09/08/21 07:47 [Pneumococcal Vaccine] propoxyphene napsylate Allergy Unknown Unknown Verified 09/08/21 07:47 [From Darvocet-N] quinapril HCl [From Accupril] Allergy Unknown Unknown Verified 09/08/21 07:47 red dye Allergy Unknown Unknown Verified 09/08/21 07:47 rosuvastatin calcium Allergy Unknown Unknown Verified 09/08/21 07:47 [From Crestor] simvastatin Allergy Unknown Unknown Verified 09/08/21 07:47 Sulfa (Sulfonamide Allergy Unknown Unknown Verified 09/08/21 07:47 Antibiotics) Tetanus Vaccines and Toxoid Allergy Unknown Unknown Verified 09/08/21 07:47 [Tetanus Vaccines & Toxoid] tetracycline [Tetracycline] Allergy Unknown Unknown Verified 09/08/21 07:47 yellow dye Allergy Unknown Unknown Verified 09/08/21 07:47 fentanyl Allergy Unknown Verified 09/08/21 07:47 hydrochlorothiazide Allergy Unknown Verified 09/08/21 07:47 CREATINE MONOHYDRATE Allergy Unknown Unknown Uncoded 09/08/21 07:47 Family History Father CAD (coronary artery disease) Mother CAD (coronary artery disease) Brother CAD (coronary artery disease) Surgical History History of coronary artery stent placement (~01/05/03) History of right and left heart catheterization (~02/18/15) Social History Smoking Status: Former smoker ROS ROS ED Constitutional Constitutional ED: Reports fever(s); Denies chills Eyes Eyes: Denies change in vision ENT ENT ED: Denies sore throat Cardiovascular Cardiovascular: Denies chest pain Respiratory/Chest Respiratory/Chest: Denies cough or dyspnea Gastrointestinal Gastrointestinal: Denies abdominal pain, diarrhea, nausea or vomiting Genitourinary Genitourinary ED: Reports other Details: Urinary urgency ; Denies dysuria Musculoskeletal Musculoskeletal: Denies back pain Integumentary Reports Abrasions; Denies rash Neurologic Neurologic: Reports weakness; Denies headache(s) Allergic/Immunologic Allergic/Immunologic ED: Denies urticaria EXAM Physical Exam Const Vital Signs: 09/08/21 07:37 09/08/21 07:41 09/08/21 07:43 Temperature 98.8 F 98.8 F Temperature Source Temporal Oral Pulse Rate 63 Respiratory Rate 17 Respiratory Effort Normal Non-Labored Respiratory Pattern Normal Blood Pressure 162/56 H Blood Pressure Mean 91 Pulse Ox 94 Oxygen Delivery Method Room Air Positive well nourished and well developed General Appearance ED: well developed HEENT Reports moist mucous membranes Eyes PERRL and EOMs intact bilaterally Neck supple Chest Wall inspection of chest normal Resp normal respiratory effort and clear to auscultation bilaterally Cardio regular rate and regular rhythm GI normal to inspection, nondistended, normoactive bowel sounds and non-tender Palpation: soft Extremity Extremity Narrative: No focal bony tenderness. Good distal pulses. Superficial abrasions noted on the bilateral knees. Neuro oriented x3 Neuro Narrative: Generalized weakness in both lower extremities. Good sensation on testing. Sensorium / Orientation: alert Skin Skin Narrative: The abrasions as noted above. MDM MDM MDM Narrative Medical decision making narrative: EKG, chest x-ray, lab work obtained. Urinalysis and Covid swab ordered. Lab Data Labs: Laboratory Results - last 24 hr 09/08/21 09/08/21 09/08/21 07:40 07:40 08:00 WBC 6.4 RBC 3.52 L Hgb 10.6 L Hct 32.8 L MCV 93.2 MCH 30.1 MCHC 32.3 RDW Std Deviation 45.6 H RDW Coeff of Tracie 13.3 Plt Count 136 L MPV 11.0 Immature Gran % (Auto) 0.600 Neut % (Auto) 77.2 H Lymph % (Auto) 10.2 L [place] % (Auto) 11.3 H Eos % (Auto) 0.5 Baso % (Auto) 0.2 Absolute Neuts (auto) 4.9 Absolute Lymphs (auto) 0.65 L Nucleated RBC % 0 Sodium 140 Potassium 4.7 Chloride 109 H Carbon Dioxide 24.0 Anion Gap 7 BUN 21 H Creatinine 1.22 Estim Creat Clear Calc 59.19 Est GFR (MDRD) Af Amer 75 Est GFR (MDRD) Non-Af 62 BUN/Creatinine Ratio 17.2 Glucose 108 H Lactic Acid 1.3 Calcium 9.1 Urine Color Urine Clarity Urine pH Ur Specific [place] Urine Protein Urine Glucose (UA) Urine Ketones Urine Occult Blood Urine Nitrite Urine Bilirubin Urine Urobilinogen Ur Leukocyte Esterase Urine RBC Urine WBC Ur Squamous Epith Cells Urine Bacteria Urine Mucus 09/08/21 08:44 WBC RBC Hgb Hct MCV MCH MCHC RDW Std Deviation RDW Coeff of Tracie Plt Count MPV Immature Gran % (Auto) Neut % (Auto) Lymph % (Auto) [place] % (Auto) Eos % (Auto) Baso % (Auto) Absolute Neuts (auto) Absolute Lymphs (auto) Nucleated RBC % Sodium Potassium Chloride Carbon Dioxide Anion Gap BUN Creatinine Estim Creat Clear Calc Est GFR (MDRD) Af Amer Est GFR (MDRD) Non-Af BUN/Creatinine Ratio Glucose Lactic Acid Calcium Urine Color Yellow Urine Clarity Clear Urine pH 5.0 Ur Specific [place] 1.025 Urine Protein 15 H Urine Glucose (UA) Normal Urine Ketones 5 H Urine Occult Blood 10 H Urine Nitrite Negative Urine Bilirubin Negative Urine Urobilinogen Normal Ur Leukocyte Esterase Negative Urine RBC 0-5 SEEN Urine WBC 0 SEEN Ur Squamous Epith Cells 0 SEEN Urine Bacteria 0 SEEN Urine Mucus 0 SEEN Radiography Chest X-Ray - ED: 1 View, Read by ED Physician and Chronic Changes EKG Initial EKG: Attestation: I personally reviewed and interpreted this EKG as follows: Interpretation: Sinus Bradycardia (Sinus bradycardia 59 bpm. No acute ischemia.) Treatment and Re-Evaluation Comments:: Lab work and urinalysis unremarkable. Chest x-ray per my interpretation shows chronic changes only. No focal infiltrate. EKG reveals no ischemia. Patient does report fever up to 103 at home. Cultures are pending at this time. Covid test is negative. Patient be discussed with hospitalist as he has weakness and difficulty with ambulation. Discharge Plan Triage Chief Complaint: Weakness ED Provider: Evelyn Calvo Dx/Rx/DC Orders Clinical Impression: Generalized weakness, Fever Prescriptions: No Action clopidogrel 75 MG tablet 75 mg PO DAILY RF: 0 hydrocodone-acetaminophen 1 EACH tablet 1 tab PO DAILY RF: 0 pravastatin 20 MG tablet 80 mg PO QHS RF: 0 albuterol sulfate [Ventolin HFA] 1 INHALER inhaler 2 puff inhalation PRN PRN (Reason: Shortness Of Breath) RF: 0 metoprolol tartrate 50 MG tablet 50 mg PO BID RF: 0 pantoprazole 40 MG tablet 40 mg PO DAILY Qty: 30 RF: 0 rivaroxaban 15 MG tablet 15 mg PO BIDCM Qty: 42 RF: 0 rivaroxaban 20 MG tablet 20 mg PO DAILY Qty: 30 RF: 2 lisinopril 10 mg tablet RF: 0 metformin 500 mg tablet extended release 24 hr PO RF: 0 Primary Care Provider: Ziyad Ruvalcaba Referrals: Ziyad Ruvalcaba MD [Primary Care Provider] - Disposition Disposition: Acute Care Hospital [facility]
[2021-09-08 08:00] LABS: Absolute Lymphocyte Count 0.65 X10^3/uL (0.83-4.51); Absolute Neutrophil Count 4.9 X10^3/uL (2.0-7.7); Basophil# 0.01 X10^3/uL; Basophil% 0.2 % (0-1); Eosinophil# 0.03 X10^3/uL; Eosinophils% 0.5 % (0-5); Hematocrit 32.8 % (40-54); Hemoglobin 10.6 g/dL (13.0-16.5); Lymphocyte # 0.65 X10^3/ul (0.83-4.51); Lymphocyte % 10.2 % (19-41); Mean Corp Hgb Conc 32.3 g/dL (32-36); Mean Corpuscular Hgb 30.1 pg (27.0-32.0); Mean Corpuscular Volume 93.2 fL (80-94); Monocyte# 0.72 X10^3/uL; Monocyte% 11.3 % (0-10); NRBC Flagged by Analyzer 0 % (0-5); Neutrophil # 4.91 X10^3/uL (2.7-7.7); Neutrophil % 77.2 % (47-70); Platelet Count 136 K/mm3 (150-450); RBC Distribution Width CV 13.3 % (11.6-14.6); RBC Distribution Width SD 45.6 fl (35.1-43.9); Red Blood Count 3.52 M/mm3 (4.6-6.2); White Blood Count 6.4 K/mm3 (4.4-11.0)
[2021-09-08 08:12] LABS: Anion Gap 7 (5-15); BUN 21 mg/dL (7-18); BUN/Creat Ratio 17.2 RATIO (10-20); Calcium,Total 9.1 mg/dL (8.5-10.1); Chloride 109 mmol/L (98-107); Creatinine, Serum 1.22 mg/dL (0.70-1.30); EST Glomerular Filtration Rate 62 mL/min (>60); Est Glom Filt Rate - Afr Amer 75 mL/min (>60); Estimated Creatinine Clearance 59.19 ml/min; Glucose 108 mg/dL (74-106); Potassium 4.7 mmol/L (3.5-5.1); Sodium Level 140 mmol/L (136-145)
[2021-09-08 08:37] LABS: Lactic Acid 1.3 mmol/L (0.4-1.9)
[2021-09-08 08:49] LABS: Bacteria 0 SEEN /hpf (None Seen); Mucous, Urine 0 SEEN /hpf (<or=2+); Squamous Epithelial Cells - UA 0 SEEN /hpf (0-5); White Blood Cells 0 SEEN /hpf (0-5)
--- NOTE | 2021-09-08 08:50 | RAD_ITS ---
STUDY: X-RAY CHEST REASON FOR EXAM: Male, 71 years old. Fever TECHNIQUE: Single AP portable view of the chest. COMPARISON: Comparison is made with prior study 06/29/2015. FINDINGS: EKG electrodes are seen. There is hyperinflation of the lungs consistent with chronic obstructive lung disease (COPD). There is no demonstrated pleural abnormality. Normal size heart. Normal mediastinum and angel. Normal visualized pulmonary arteries. There is atherosclerotic calcification of the aortic arch with tortuosity. There are degenerative changes of the visualized thoracic spine. Normal visualized ribs, clavicles, and shoulders. There is no demonstrated abnormality of the visualized soft tissue structures of the upper abdomen. RAD/Chest 1 View (Portable) IMPRESSION: Hyperinflation. No acute abnormality is seen. Electronically Signed: Blade Myles MD at 9:24 EDT , Service support ,
[2021-09-08 09:09] LABS: Color, Urine Yellow (Yellow); Glucose, Dipstick Normal (Normal); Ketone-Dipstick 5 mg/dl (Negative); Leukocyte Esterase-Dipstick Negative /ul (Negative); Nitrite-Dipstick Negative (Negative); Occult Blood-Urine 10 /ul (Negative); Protein-Dipstick 15 mg/dl (Negative); Specific Gravity, Urine 1.025 (1.002-1.030); Urine Bilirubin Dipstick Negative (Negative); Urine Clarity Clear (Clear); Urine Urobilinogen Normal (Normal)
[2021-09-08 09:18] LABS: Red Blood Cells-Urine 0-5 SEEN /hpf (0-5)
--- NOTE | 2021-09-08 09:45 | HP.PCM.HOS_ITS ---
HPI - General General Date of Admission: 09/08/21 Date of Service: 09/08/21 Chief Complaint: Generalized weakness HPI Narrative GIANA TANG, is a 71 M with multiple comorbidities including diabetes mellitus type 2, essential hypertension, coronary artery disease with previous stent placement who presented to the emergency department with a 5-day history of generalized weakness. Patient reports his weakness has been progressively point of him having to crawl. He also did complain of weakness in both upper extremities. On further questioning patient did admit to having noticed increasing weakness as well as muscle wasting for over 18 months. Patient reported a previous experience however he fully recovered. He does not recall if definitive diagnosis was given for his condition.. Patient also did report subjective fever as well as chills in addition to urgency and frequency. He denied having received the COVID-19 vaccine due to previous allergy to both tetanus as well as flu vaccine. His rapid COVID-19 antigen test in the ER was negative. Urinalysis obtained came back unremarkable. No source of obvious infectious etiology found. [facility] Medical History Agent orange exposure Atherosclerosis of coronary artery of [place] heart without angina pectoris Carotid stenosis Chronic fatigue disorder COPD (chronic obstructive pulmonary disease) Esophagitis Hyperlipidemia Hypertension Non-rheumatic tricuspid valve insufficiency Nonrheumatic aortic valve insufficiency Peripheral vascular occlusive disease Type 2 diabetes mellitus without complications Home Medications albuterol sulfate [Ventolin HFA] 2 puff INHALATION PRN PRN 08/23/14 [History Last Taken 02/18/15] clopidogrel 75 mg PO DAILY 08/23/14 [History Last Taken 08/19/17] hydrocodone-acetaminophen 1 tab PO DAILY 08/23/14 [History Last Taken 08/22/17] pravastatin 80 mg PO QHS 08/23/14 [History Last Taken Unknown] metoprolol tartrate 50 mg PO BID 02/17/15 [History Last Taken 08/22/17] aspirin 81 mg PO DAILY 09/08/21 [History Last Taken 09/07/21] lisinopril 09/08/21 [History Last Taken Unknown] metformin mg PO 09/08/21 [History Last Taken Unknown] Allergy/AdvReac Type Severity Reaction Status Date / Time acetaminophen Allergy Unknown Unknown Verified 09/08/21 07:47 [From Darvocet-N] amitriptyline HCl Allergy Unknown Unknown Verified 09/08/21 07:47 [From Elavil] atorvastatin calcium Allergy Unknown Unknown Verified 09/08/21 07:47 [From Lipitor] azithromycin [From Zithromax] Allergy Unknown Unknown Verified 09/08/21 07:47 cefaclor [Cefaclor] Allergy Unknown Unknown Verified 09/08/21 07:47 ciprofloxacin [From Cipro] Allergy Unknown Unknown Verified 09/08/21 07:47 ciprofloxacin HCl Allergy Unknown Unknown Verified 09/08/21 07:47 [From Cipro] hydroxyzine HCl [From Atarax] Allergy Unknown Unknown Verified 09/08/21 07:47 influenza virus vaccine, Allergy Unknown Unknown Verified 09/08/21 07:47 specific [Influenza Virus Vacc,Specific] iodine Allergy Unknown Unknown Verified 09/08/21 07:47 latex Allergy Unknown Unknown Verified 09/08/21 07:47 levofloxacin [From Levaquin] Allergy Unknown Unknown Verified 09/08/21 07:47 lidocaine Allergy Unknown Unknown Verified 09/08/21 07:47 lovastatin Allergy Unknown Unknown Verified 09/08/21 07:47 niacin Allergy Unknown Unknown Verified 09/08/21 07:47 Penicillins Allergy Unknown Unknown Verified 09/08/21 07:47 pneumococcal vaccine Allergy Unknown Unknown Verified 09/08/21 07:47 [Pneumococcal Vaccine] propoxyphene napsylate Allergy Unknown Unknown Verified 09/08/21 07:47 [From Darvocet-N] quinapril HCl [From Accupril] Allergy Unknown Unknown Verified 09/08/21 07:47 red dye Allergy Unknown Unknown Verified 09/08/21 07:47 rosuvastatin calcium Allergy Unknown Unknown Verified 09/08/21 07:47 [From Crestor] simvastatin Allergy Unknown Unknown Verified 09/08/21 07:47 Sulfa (Sulfonamide Allergy Unknown Unknown Verified 09/08/21 07:47 Antibiotics) Tetanus Vaccines and Toxoid Allergy Unknown Unknown Verified 09/08/21 07:47 [Tetanus Vaccines & Toxoid] tetracycline [Tetracycline] Allergy Unknown Unknown Verified 09/08/21 07:47 yellow dye Allergy Unknown Unknown Verified 09/08/21 07:47 fentanyl Allergy Unknown Verified 09/08/21 07:47 hydrochlorothiazide Allergy Unknown Verified 09/08/21 07:47 CREATINE MONOHYDRATE Allergy Unknown Unknown Uncoded 09/08/21 07:47 Family History Father CAD (coronary artery disease) Mother CAD (coronary artery disease) Brother CAD (coronary artery disease) Surgical History History of coronary artery stent placement (~01/05/03) History of right and left heart catheterization (~02/18/15) Social History Smoking Status: Former smoker ROS ROS Narrative GENERAL: denies fever, chills, night sweats, HEENT: denies headache, sinus congestion, RESPIRATORY: denies cough, sputum production, CARDIAC: denies chest pain, palpitations, orthopnea, GASTROINTESTINAL: denies abdominal pain, GENITOURINARY: urgency, frequency, EXTREMITY: denies swelling MUSCULOSKELETAL: denies current joint pain or tenderness NEUROLOGIC: Upper and lower extremity progressive generalized weakness HEMATOLOGIC: denies easy bruising and/or hemorrhage INTEGUMENT: denies rashes PSYCHIATRIC: denies suicidal or homicidal ideation Vital Signs Vital Signs Vital Signs: 09/08/21 07:37 09/08/21 07:41 09/08/21 07:43 Temperature 98.8 F 98.8 F Temperature Source Temporal Oral Pulse Rate 63 Respiratory Rate 17 Respiratory Effort Normal Non-Labored Respiratory Pattern Normal Blood Pressure 162/56 H Blood Pressure Mean 91 Pulse Ox 94 Oxygen Delivery Method Room Air 09/08/21 09:35 Temperature 98.9 F Temperature Source Temporal Pulse Rate 58 L Respiratory Rate 20 H Respiratory Effort Respiratory Pattern Blood Pressure 136/68 H Blood Pressure Mean 90 Pulse Ox 95 Oxygen Delivery Method Room Air Weight Weight: 109.6 kg Body Mass Index (BMI) 32.8 Physical Exam Narrative GENERAL: cooperative HEENT: Atraumatic; EYES; Anicteric, Normal Conjunctiva NECK; supple, normal thyroid, RESPIRATORY: Diminished to auscultation CARDIOVASCULAR: Regular S1 S2, GI: soft, normoactive bowel sounds, : No Renal angle tenderness; EXTREMITIES: Bilateral knee excoriations MUSCULOSKELETAL: No joint swelling NEURO: Awake; no lateralizing signs significant weakness in both upper and l ower extremities SKIN: No Rash PSYCH; Flat affect Results Lab / Micro Data Result Diagrams: 09/08/21 07:40 09/08/21 07:40 Labs: Laboratory Results - last 24 hr 09/08/21 07:40: WBC 6.4, RBC 3.52 L, Hgb 10.6 L, Hct 32.8 L, MCV 93.2, MCH 30.1, MCHC 32.3, RDW Std Deviation 45.6 H, RDW Coeff of Tracie 13.3, Plt Count 136 L, MPV 11.0, Immature Gran % (Auto) 0.600, Neut % (Auto) 77.2 H, Lymph % (Auto) 10.2 L, [place] % (Auto) 11.3 H, Eos % (Auto) 0.5, Baso % (Auto) 0.2, Absolute Neuts (auto) 4.9, Absolute Lymphs (auto) 0.65 L, Nucleated RBC % 0 09/08/21 07:40: Sodium 140, Potassium 4.7, Chloride 109 H, Carbon Dioxide 24.0, Anion Gap 7, BUN 21 H, Creatinine 1.22, Estim Creat Clear Calc 59.19, Est GFR (MDRD) Af Amer 75, Est GFR (MDRD) Non-Af 62, BUN/Creatinine Ratio 17.2, Glucose 108 H, Calcium 9.1 09/08/21 08:00: Lactic Acid 1.3 09/08/21 08:44: Urine Color Yellow, Urine Clarity Clear, Urine pH 5.0, Ur Specific [place] 1.025, Urine Protein 15 H, Urine Glucose (UA) Normal, Urine Ketones 5 H, Urine Occult Blood 10 H, Urine Nitrite Negative, Urine Bilirubin Negative, Urine Urobilinogen Normal, Ur Leukocyte Esterase Negative, Urine RBC 0-5 SEEN, Urine WBC 0 SEEN, Ur Squamous Epith Cells 0 SEEN, Urine Bacteria 0 SEEN, Urine Mucus 0 SEEN Micro: Microbiology 09/08/21 08:44 Nasal Secretion SARS-CoV-2 Antigen (Rapid) - Final Radiology Impression Chest X-Ray 09/08/21 08:50 IMPRESSION: Hyperinflation. No acute abnormality is seen. Electronically Signed: Blade Myles MD at 9:24 EDT , Service support , Assessment & Plan Assessment/Plan (1) Generalized weakness: (2) Fever: PLAN: Patient is a 71-year-old gentleman presented with progressive generalized weakness fever dysuria and frequency 1. Progressive generalized weakness ?Etiology not clear at this point. Patient has been admitted to a monitored bed for subsequent evaluation. Did order CPK aldolase ALEX TSH to rule out polymyositis. Also ordered lumbar puncture to evaluate for proteins for possible demyelinating disease. Consult placed to telemetry neurology. Also ordered imaging studies of the lumbar thoracic and cervical spine 2. Acute febrile illness ?Initial work-up in the ED including rapid antigen test for COVID-19 and urinalysis unremarkable. Ordered Covid PCR test in addition to viral respiratory panel. Will treat fever symptomatically with Tylenol 3. Paroxysmal A. fib ?Patient was previously on systemic anticoagulation with rivaroxaban which was discontinued as a result of lower GI bleed 4. Coronary artery disease ?With previous stent placement 5. Diabetes mellitus type 2 ?Diet controlled 6. Peripheral vascular disease ?Per history 7. Essential hypertension ?Currently not in any medications 8. DVT prophylaxis ?SC Lovenox Advance planning; did discuss with the patient regarding advanced directives as well as CODE STATUS. Did explain the various scenarios involved ( FULL CODE, DNR CCA, DNR CCA with no intubation, and DNR CC and what each meant) patient elected to be DNR CCA no intubation. Order was placed. Time spent on discussion 18 minutes. Charges/Coding Visit Charges Inpatient E&M: 12583 Init Hosp L3 Procedures Hospitalists Procedures: 90711 Advncd Care Plan 30 Min
--- NOTE | 2021-09-08 10:02 | TELEMED_ITS ---
[facility] has confirmed receipt of a request for visit. This document confirms receipt of the order initiating the consult. To find the results of the consultation, please view the patient's reports for the scanned Telemed Consult.
[2021-09-08 10:18] LABS: CPK Total, Creatine Kinase 319 U/L (39-308)
--- NOTE | 2021-09-08 10:20 | PCS.PANDOC ---
PANDEMIC DOCUMENTATION INITIATED: Date: 06/19/2021 Time: 190
[2021-09-08 10:31] LABS: Erythrocyte Sedimentation Rate 30 mm/hr (0-20)
[2021-09-08 10:45] LABS: Thyroid Stim Hormone (TSH) 1.07 uIU/mL (0.358-3.74)
--- NOTE | 2021-09-08 11:01 | NURSING ---
SPOKE WITH PT'S NURSE TO INFORM LP CANCELLED D/T LAST DOSE OF PLAVIX 09/07/21. WILL NEED A FIVE DAY HOLD BEFORE RESCHEDULING.
[2021-09-08] MEDS: Insulin Lispro 100 UNIT/ML INSULN.PEN SC (11:11)
[2021-09-08] MEDS: 0.9% Normal Saline 1,000 ML 125 ML IV ×2 (11:12→18:55)
[2021-09-08] MEDS: Glucerna Shake 120 ML LIQUID PO ×2 (11:18→17:08)
[2021-09-08 13:01] LABS: Bedside Glucose 155 mg/dL (70-110)
[2021-09-08] MEDS: predniSONE 10 MG Tablet 50 MG PO ×2 (17:06→22:37)
[2021-09-08 17:41] LABS: Bedside Glucose 95 mg/dL (70-110)
--- NOTE | 2021-09-08 18:44 | EKG12_ITS ---
Test Reason : CP Blood Pressure : / mmHG Vent. Rate : 067 BPM Atrial Rate : 073 BPM P-R Int : 254 ms QRS Dur : 094 ms QT Int : 472 ms P-R-T Axes : 067 024 026 degrees QTc Int : 498 ms Sinus rhythm Confirmed by BRIANNA GUERRERO, NILES ([id number]), offline editor DANNA MILAN ([id number]) on 09/12/2021 8:56:13 AM Referred By: JEAN Confirmed By:NILES REED MD
[2021-09-08] MEDS: Nitroglycerin (INPATIENT USE) 0.4 MG TAB.SUBL SL (18:49)
[2021-09-08] MEDS: Lisinopril 10 MG Tablet PO (22:34)
[2021-09-08] MEDS: Pravastatin 80 MG Tablet PO (22:35)
[2021-09-08 22:46] LABS: Bedside Glucose 143 mg/dL (70-110)
[2021-09-09] VITALS (11 sets, daily range): BP systolic 128–175; BP diastolic 53–71; PULSE 53–65; RESP 16–18; TEMP 36.4–36.7; O2SAT 97–99
[2021-09-09] MEDS: Nitroglycerin (INPATIENT USE) 0.4 MG TAB.SUBL SL ×2 (00:06→00:14)
[2021-09-09] MEDS: 0.9% Normal Saline 1,000 ML 125 ML IV (02:45)
[2021-09-09] MEDS: predniSONE 10 MG Tablet 50 MG PO (04:50)
[2021-09-09] MEDS: DiphenhydrAMINE 25 MG Capsule 50 MG PO (04:50)
--- NOTE | 2021-09-09 06:00 | CT_ITS ---
STUDY: CT LUMBAR SPINE WITH AND WITHOUT CONTRAST REASON FOR EXAM: Male, 71 years old patient with myelopathy. Rule out abscess. RADIATION DOSAGE (If Supplied By Facility): CTDIvol = ( 37.25 ) mGy, DLP = ( 7869.63 ) mGycm TECHNIQUE: The patient was scanned in a multi detector CT scanner. High resolution transaxial imaging was performed following the intravenous administration of 100 mL of Isovue-370. Images were obtained from T11 to sacrum. Sagittal and coronal images were reconstructed. Individualized dose optimization techniques were used for this CT. COMPARISON: CT abdomen and pelvis dated 06/28/2018. FINDINGS: Normal lumbar lordosis. There is no substantial scoliosis. Lumbar vertebral bodies have normal height. L1-2: Normal endplates. Normal disc height and morphology. Normal bilateral facet joints. Normal central canal and bilateral lateral recesses. Normal bilateral intervertebral neural foramina. L2-3: Normal endplates. Normal disc height and morphology. Normal bilateral facet joints. Normal central canal and bilateral lateral recesses. Normal bilateral intervertebral neural foramina. L3-4: There is mild annular disk bulge and osteophyte complex. There is mild degenerative arthropathy of the facet joints. Bilateral neuroforamina are narrowed. There is no significant acquired central canal stenosis. L4-5: There is narrowing of the disc space with vacuum disc phenomenon. There is moderate annular disc bulge and osteophyte complex. There is severe degenerative arthropathy of the facet joints with moderately severe central canal stenosis. The neural foramina or narrowed. L5-S1: There is narrowing of the disc space with small endplate osteophytes and vacuum disc phenomenon. There is moderately severe degenerative arthropathy of the facet joints with mild central acquired canal stenosis. Neural foramina are narrowed. There are scattered colonic diverticula. There is a atherosclerotic calcification the pelvic arteries. Both kidneys excrete contrast. There is no obvious abnormal enhancement within the spinal canal though the enhanced images are limited by patient motion. There is a moderate narrowing of the distal abdominal aorta by calcified atherosclerotic plaque with 50% diameter narrowing. There is also severe narrowing of the common iliac arteries. CT/Spine Lumbar W/WO Contrast IMPRESSION: 1. Moderately severe multilevel degenerative disc disease and degenerative arthropathy of the lumbar spine with moderate central canal stenosis at L4-5. 2. No obvious acute fracture or dislocation. 3. Hemodynamically significant atherosclerotic disease of the distal abdominal aorta and imaged common iliac arteries. Electronically Signed: Julia Strong MD at 7:59 EDT , Service support ,
--- NOTE | 2021-09-09 06:00 | CT_ITS ---
STUDY: CT BRAIN WITHOUT CONTRAST REASON FOR EXAM: Male, 71 years old patient with weakness RADIATION DOSAGE (If Supplied By Facility): CTDIvol = ( 37.25 ) mGy, DLP = ( 7869.63 ) mGycm TECHNIQUE: Transaxial CT imaging of the brain was performed without administration of intravenous contrast material. Multiplanar reformations are submitted for interpretation. Individualized dose optimization techniques were used for this CT. COMPARISON: CT of the head dated 12/21/2016. FINDINGS: Normal soft tissue structures. Normal calvarium. There is mild cerebral atrophy with widening of the extra-axial spaces and ventricular dilatation. There are areas of decreased attenuation within the white matter tracts of the supratentorial brain, consistent with microvascular disease changes. Normal basal ganglia and thalami. Normal brainstem. There is mild cerebellar atrophy. There is no intracranial hemorrhage. There is mild atherosclerotic calcification of the intracranial arteries. There is mucoperiosteal inflammatory disease of the paranasal sinuses consistent with mild chronic sinusitis. CT/Brain/Head without Contrast IMPRESSION: 1. Chronic involutional changes of the brain. 2. No CT evidence of acute intracranial hemorrhage. Electronically Signed: Julia Strong MD at 7:24 EDT , Service support ,
--- NOTE | 2021-09-09 06:00 | CT_ITS ---
STUDY: CT THORACIC SPINE WITH AND WITHOUT CONTRAST REASON FOR EXAM: Male, 71 years old patient with myelopathy. RADIATION DOSAGE (If Supplied By Facility): CTDIvol = ( 37.25 ) mGy, DLP = ( 7869.63 ) mGycm TECHNIQUE: The patient was scanned in a multi-detector CT scanner. High resolution transaxial imaging was performed pre-and post contrast administration. The examination was performed with 100 mL of IV Isovue-370. Images were obtained from T1 to T12. Sagittal and coronal images were reconstructed. Individualized dose optimization techniques were used for this CT. COMPARISON: None. FINDINGS: There is multilevel degenerative disc disease and cervical spondylosis. There is an increased kyphosis of the thoracic spine. There is no substantial scoliosis. There is multilevel endplate spondylosis of the thoracic spine. Normal disc spaces heights. The bones are mild osteopenic. The thoracic vertebral bodies have normal height and alignment. The paraspinal soft tissues are within normal limits. There is atherosclerotic calcification of the coronary arteries as well as the thoracic aorta. Visualized ribs appear to be intact. Visualized lungs appear to be clear. There are patchy lucencies in the lung apices suggesting central lobular emphysema. Subglottic trachea and trachea are within normal limits. There is no obvious abnormal enhancement within the thoracic spinal canal to suggest an abscess. There is some motion artifact on the enhanced images. CT/Spine Thoracic W/WO Contrast IMPRESSION: 1. Multilevel thoracic spondylosis without obvious acute fracture. 2. No obvious spinal canal abscess is identified but MRI is a more sensitive test for this purpose. Electronically Signed: Julia Strong MD at 7:49 EDT , Service support ,
--- NOTE | 2021-09-09 06:00 | CT_ITS ---
STUDY: CT CERVICAL SPINE WITH AND WITHOUT CONTRAST REASON FOR EXAM: Male, 71 years old patient with myelopathy. Rule out abscess RADIATION DOSAGE (If Supplied By Facility): CTDIvol = ( 37.25 ) mGy, DLP = ( 7869.63 ) mGycm TECHNIQUE: High resolution transaxial imaging was performed following intravenous administration of 100 mL of Isovue-370. Sagittal and coronal images were reconstructed. Individualized dose optimization techniques were used for this CT. COMPARISON: None FINDINGS: Normal craniovertebral junction. There are degenerative changes of the anterior atlantoaxial articulation. Normal odontoid process. There is straightening of the normal cervical lordosis. The bones appear osteopenic. There is mild decreased height of several cervical vertebral bodies and may be developmental variant or secondary to previous mild old compression fractures. C2-3: Normal endplates. Normal disc height and morphology. Normal central canal and intervertebral neuroforamina. C3-4: There are small endplate osteophytes. The neural foramina are patent. There is mild uncovertebral facet joint arthropathy. C4-5: There is narrowing of this disc space with small plate osteophytes. There is severe right-sided neural foraminal narrowing and moderate left-sided foraminal narrowing. There is no central canal stenosis. C5-6: There is narrowing of the disc space with small endplate osteophytes. There is moderate bilateral neural foraminal narrowing with uncovertebral facet joint arthropathy. There is no central canal stenosis. C6-7: There is narrowing of the disc space with small endplate osteophytes. There is moderate bilateral foraminal narrowing with uncovertebral joint hypertrophy. There is mild acquired central canal stenosis. C7-T1: Normal endplates. Normal disc height and morphology. Normal central canal and intervertebral neuroforamina. There is atherosclerotic calcification of the carotid bulbs. The lung apices appear to be clear with patchy lucency suggesting centrilobular emphysema. There is no obvious abnormal enhancement within the spinal canal to suggest abscess. There is ossification of nuchal ligament posterior to C5-C6. This may be secondary to previous trauma. CT/Spine Cervical W/WO Contrast IMPRESSION: 1. No CT evidence of acute compression displaced fracture. 2. Moderately severe multilevel degenerative disc disease and degenerative arthropathy cervical spine with neural foraminal narrowing and central canal stenosis, as described. Electronically Signed: Julia Strong MD at 7:39 EDT , Service support ,
[2021-09-09] MEDS: Insulin Lispro 100 UNIT/ML INSULN.PEN SC ×2 (06:45→11:01)
[2021-09-09 06:56] LABS: Bedside Glucose 153 mg/dL (70-110)
[2021-09-09 07:11] LABS: Absolute Lymphocyte Count 0.42 X10^3/uL (0.83-4.51); Hematocrit 31.9 % (40-54); Hemoglobin 10.4 g/dL (13.0-16.5); Lymphocyte # 0.42 X10^3/ul (0.83-4.51); Lymphocyte % 11.7 % (19-41); Mean Corp Hgb Conc 32.6 g/dL (32-36); Mean Corpuscular Hgb 30.4 pg (27.0-32.0); Mean Corpuscular Volume 93.3 fL (80-94); Mean Platelet Vol. 10.8 fl (6.2-12.0); Monocyte# 0.13 X10^3/uL; Monocyte% 3.6 % (0-10); NRBC Flagged by Analyzer 0 % (0-5); Neutrophil # 2.99 X10^3/uL (2.7-7.7); Neutrophil % 83.6 % (47-70); POSITIVE DIFFERENTIAL YES; Platelet Count 141 K/mm3 (150-450); RBC Distribution Width CV 13.2 % (11.6-14.6); RBC Distribution Width SD 45.4 fl (35.1-43.9); Red Blood Count 3.42 M/mm3 (4.6-6.2); White Blood Count 3.6 K/mm3 (4.4-11.0)
[2021-09-09 07:15] LABS: Differential Indicated SCAN CRITERIA MET
[2021-09-09 07:36] LABS: Anion Gap 4 (5-15); BUN 21 mg/dL (7-18); BUN/Creat Ratio 18.3 RATIO (10-20); Calcium,Total 8.5 mg/dL (8.5-10.1); Chloride 109 mmol/L (98-107); Creatinine, Serum 1.15 mg/dL (0.70-1.30); EST Glomerular Filtration Rate 66 mL/min (>60); Est Glom Filt Rate - Afr Amer 80 mL/min (>60); Estimated Creatinine Clearance 62.79 ml/min; Glucose 159 mg/dL (74-106); Magnesium 1.7 mg/dL (1.6-2.6); Phosphorus 3.2 mg/dL (2.5-4.9); Potassium 4.4 mmol/L (3.5-5.1); Sodium Level 136 mmol/L (136-145)
--- NOTE | 2021-09-09 07:36 | PN.HOSP_ITS ---
Subjective Subjective Patient is scheduled to undergo evaluation recommended by neurologist including CT of the head as well as CT of the cervical spine thoracic and lumbar with and without contrast. Patient has allergy to contrast is therefore being prepped with steroid. Ironically patient generalized weakness remarkably improved fol lowing initiation of steroids Objective Data Objective Data Vital Signs: Vital Signs Temp Pulse Resp BP Pulse Ox 97.5 F L 62 18 151/54 H 97 09/09/21 02:47 09/09/21 02:47 09/09/21 02:47 09/09/21 02:47 09/09/21 02:47 Oxygen Delivery Method Room Air Weight: 108.8 kg Body Mass Index (BMI) 32.0 Intake & Output: Intake and Output for Last 24 Hours 09/07/21 09/08/21 09/09/21 23:59 23:59 23:59 Intake Total 1614.58 / 1614.58 1279.17 / 1279.17 Balance 1614.58 / 1614.58 1279.17 / 1279.17 Medical Nutrition Assessment Dietitian: Malnutrition Criteria Met Start: 09/08/21 15:16 Freq: Status: Active Protocol: Document 09/08/21 15:16 AG (Rec: 09/08/21 15:16 [id number]) Nutrition Malnutrition Evidence of Malnutrition Exists Yes Malnutrition (moderate): Chronic Evidenced By Suboptimal Energy Intake ( Moderate),Weight Loss ( Moderate) Clinical Problem Chronic Disease or Condition Related Malnutrition Etiology moderate, chronic malnutrition r/t inadequate energy intake d/t decrease in appetite Signs/Symptoms as evidenced by unintentional wt loss of 49#/17.19% over past 6-12months; estimated PO intake meeting <75% of estimated nutritional needs >3 months Status Active Problem Recommendation Dietitian Recommendations/Changes continue regular diet; will switch Glucerna to 120mL 4x/ day w/ medpass to encourage PO intake at meal times yet provide additional protein/ calories if consumed d/t signs /symptoms of chronic moderate malnutrition Lab / Micro Data Result Diagrams: 09/09/21 07:04 09/09/21 07:04 Labs: Laboratory Results - last 24 hr 09/08/21 07:40: WBC 6.4, RBC 3.52 L, Hgb 10.6 L, Hct 32.8 L, MCV 93.2, MCH 30.1, MCHC 32.3, RDW Std Deviation 45.6 H, RDW Coeff of Tracie 13.3, Plt Count 136 L, MPV 11.0, Immature Gran % (Auto) 0.600, Neut % (Auto) 77.2 H, Lymph % (Auto) 10.2 L, [place] % (Auto) 11.3 H, Eos % (Auto) 0.5, Baso % (Auto) 0.2, Absolute Neuts (auto) 4.9, Absolute Lymphs (auto) 0.65 L, Nucleated RBC % 0 09/08/21 07:40: Sodium 140, Potassium 4.7, Chloride 109 H, Carbon Dioxide 24.0, Anion Gap 7, BUN 21 H, Creatinine 1.22, Estim Creat Clear Calc 59.19, Est GFR (MDRD) Af Amer 75, Est GFR (MDRD) Non-Af 62, BUN/Creatinine Ratio 17.2, Glucose 108 H, Calcium 9.1 09/08/21 07:40: Total Creatine Kinase 319 H 09/08/21 07:40: C-React Prot Ext Range 63.90 H, TSH 1.07 09/08/21 07:40: ESR 30 H 09/08/21 08:00: Lactic Acid 1.3 09/08/21 08:44: Urine Color Yellow, Urine Clarity Clear, Urine pH 5.0, Ur Specific [place] 1.025, Urine Protein 15 H, Urine Glucose (UA) Normal, Urine Ketones 5 H, Urine Occult Blood 10 H, Urine Nitrite Negative, Urine Bilirubin Negative, Urine Urobilinogen Normal, Ur Leukocyte Esterase Negative, Urine RBC 0-5 SEEN, Urine WBC 0 SEEN, Ur Squamous Epith Cells 0 SEEN, Urine Bacteria 0 SEEN, Urine Mucus 0 SEEN 09/08/21 11:07: POC Glucose 155 H 09/08/21 13:15: COVID-19 (ALLY) Not Detected 09/08/21 16:21: POC Glucose 95 09/08/21 22:32: POC Glucose 143 H 09/09/21 06:44: POC Glucose 153 H 09/09/21 07:04: WBC 3.6 L, RBC 3.42 L, Hgb 10.4 L, Hct 31.9 L, MCV 93.3, MCH 30.4, MCHC 32.6, RDW Std Deviation 45.4 H, RDW Coeff of Tracie 13.2, Plt Count 141 L, MPV 10.8, Immature Gran % (Auto) 1.100 H, Neut % (Auto) 83.6 H, Lymph % (Auto) 11.7 L, [place] % (Auto) 3.6, Eos % (Auto) 0.0, Baso % (Auto) 0.0, Absolute Neuts (auto) 3.0, Absolute Lymphs (auto) 0.42 L, Nucleated RBC % 0 Micro: Microbiology 09/08/21 08:44 Nasal Secretion SARS-CoV-2 Antigen (Rapid) - Final Radiography Diagnostic Testing: Radiology Impression Chest X-Ray 09/08/21 08:50 IMPRESSION: Hyperinflation. No acute abnormality is seen. Electronically Signed: Blade Myles MD at 9:24 EDT , Service support , Brain CT 09/09/21 06:00 IMPRESSION: 1. Chronic involutional changes of the brain. 2. No CT evidence of acute intracranial hemorrhage. Electronically Signed: Julia Strong MD at 7:24 EDT , Service support , Physical Exam Narrative GENERAL: cooperative HEENT: Atraumatic; EYES; Anicteric, Normal Conjunctiva NECK; supple, normal thyroid, RESPIRATORY: Diminished to auscultation CARDIOVASCULAR: Regular S1 S2, GI: soft, normoactive bowel sounds, : No Renal angle tenderness; EXTREMITIES: Bilateral knee excoriations MUSCULOSKELETAL: No joint swelling NEURO: Awake; no lateralizing signs significant weakness in both upper and lower extremities SKIN: No Rash PSYCH; Flat affect Assessment & Plan Assessment/Plan (1) Generalized weakness: (2) Fever: PLAN: Patient is a 71-year-old gentleman presented with progressive generalized weakness fever dysuria and frequency 1. Progressive generalized weakness ?Etiology not clear at this point. Patient has been admitted to a monitored bed for subsequent evaluation. Did order CPK aldolase ALEX TSH to rule out polymyositis. Also ordered lumbar puncture to evaluate for proteins for possible demyelinating disease. Consult placed to telemetry neurology. Also ordered lonnie ging studies of the lumbar thoracic and cervical spine -09/09/2021. Consult was placed to telemetry neurology Case discussed with [facility] telemetry neurologist recommended CT of the head without contrast, CT of the thoracic cervical and lumbar spine with and without contrast as patient had declined MRI -Given patient remarkable improvement following initiation of steroid do suspect polymyalgia rheumatica as the etiology of patient's progressive generalized weakness (has other features including elevated ESR and CRP). Patient had elevated CPK levels possibly related to prolonged period of immobilization 2. Acute febrile illness ?Initial work-up in the ED including rapid antigen test for COVID-19 and urinalysis unremarkable. Ordered Covid PCR test in addition to viral respiratory panel. Will treat fever symptomatically with Tylenol ?Infectious etiology so far negative to date. Patient low-grade fever may be explained by his PMR 3. Paroxysmal A. fib ?Patient was previously on systemic anticoagulation with rivaroxaban which was discontinued as a result of lower GI bleed -Neurology recommended consultation with GI for possible clearance for initiation of systemic anticoagulation given patient significant risk for stroke 4. Coronary artery disease ?With previous stent placement 5. Diabetes mellitus type 2 ?Diet controlled 6. Peripheral vascular disease ?Per history 7. Essential hypertension ?Currently not in any medications 8. DVT prophylaxis ?SC Lovenox Charges/Coding Visit Charges Inpatient E&M: 61452 Subs Hosp L3
[2021-09-09 07:56] LABS: Hypochromasia RARE; Platelet Estimate ADEQUATE (ADEQ)
[2021-09-09] MEDS: Aspirin 81 MG TAB.CHEW PO (08:09)
[2021-09-09] MEDS: Lisinopril 10 MG Tablet PO ×2 (08:09→20:57)
[2021-09-09] MEDS: Metoprolol Tartrate 50 MG Tablet PO ×2 (08:09→20:57)
[2021-09-09] MEDS: Glucerna Shake 120 ML LIQUID PO ×2 (08:16→13:32)
[2021-09-09] MEDS: Clopidogrel Bisulfate 75 MG Tablet PO (08:31)
[2021-09-09 11:20] LABS: Bedside Glucose 219 mg/dL (70-110)
--- NOTE | 2021-09-09 12:25 | CASEMGMT ---
ANISA MACIAS GEOSPATIAL TECHNOLOGIST COLLEEN to room to meet with patient for initial transition planning/care coordination assessment. ANISA MACIAS introduced self and role at [facility]. Pt voices understanding and consents to assessment at this time. Pt sitting up on edge of bed in no distress at this time. Pt is A/O at this time and answers all questions appropriately. Care providers, pharmacy, and demographics verified/updated at this time. PCP: Dr Ruvalcaba Specialists: none Preferred Pharmacy: [facility] Retail Insurance: [employer] Prescription Benefit:Yes Living Will/HPOA: Has both. is HPOA. LNOK: , Samanta Living Arrangements: Lives w/ in one-story ranch-style home. 2 steps to enter w/rails on both sides. States assists w/bathing and dressing for about the last 1 1/2 yrs. manages meals and home tasks. Pt manages his own medications and appts. Pt states he is a disabled and states, I haven't left the house for 3 years. Transportation: Pt states drives self and states no transportation concerns at this time. also drives. DME: States has the following DME: shower chair, BSC, couple of canes, walker, functioning glucometer and supplies. Pt would like information on medical alert button. Provided at this time. Pt states no need for further DME at this time. HHC/SNF: No hx of either. Pt initially stated he would like to go home and did not want any HHC or OP therapy. Pt states he has had approx 30 falls over the last 1 1/2 yrs. Upon further discussion, pt stated he stated he would like to go to TCU to get stronger, stating, I have to admit, it has been really hard for me to get around and it would be better if I get stronger so I can go home. Ousmane WOODS, notified. PLAN: [facility] ANISA MACIAS
--- NOTE | 2021-09-09 12:44 | EX.PCM.CON.G ---
HPI Consult Data Date of Consult: 09/09/21 HPI Narrative HPI Narrative: GIANA TANG, is a 71 M who presents with fatigue and weakness. In 2018 he presented with melena and weakness. He was discovered to have an elevated BUN/creatinine ratio possibly secondary to upper GI bleed. He was also discovered to be in rapid atrial fibrillation with RVR and had episodes of possible torsades following a syncopal event. He has a past medical history significant for reported coronary artery disease, COPD, GERD, diet-controlled diabetes mellitus type 2, hypertension, hypercholesterolemia and nonrheumatic valvular disease and thrombocytopenia. Patient reportedly did take Plavix and aspirin at baseline for a history of CAD status post PTCA with multiple stents, but no anticoagulant therapy. Patient denies any NSAID use at baseline. He underwent an upper endoscopy by Dr. Stahl to the second portion of the duodenum. No etiology of his anemia and possible GI bleed was found during that time. He was started on Xarelto therapy however it was stopped due to a persistent anemia and GI bleed. On his hospitalization he has had fevers. He is getting worked up for possible rheumatologic disease and/or central nervous system disease. I have been asked to see him regarding of his anemia and history of GI bleed. He recently got steroids for possible diagnosis of polymyalgia rheumatica. Patient states that many years ago he underwent an upper endoscopy is unsure whether or not he had an ERCP at that time. Reviewing of the records does show that he did see Dr. Newberry in 2002. However I am unable to retrieve any of the medical records from the optical disc at this time. His last colonoscopy was several years ago and he has a history of multiple adenomatous polyps along with excessive diverticular disease. [facility] Medical History (Updated 09/09/21 @ 14:[address] Mccarthy Friend, DO) Agent orange exposure Anemia Atherosclerosis of coronary artery of [place] heart without angina pectoris Carotid stenosis Chronic fatigue disorder COPD (chronic obstructive pulmonary disease) Esophagitis Hyperlipidemia Hypertension Non-rheumatic tricuspid valve insufficiency Nonrheumatic aortic valve insufficiency Osteoporosis Peripheral vascular occlusive disease Restless legs Sleep apnea Thrombocytopenia Type 2 diabetes mellitus without complications Home Medications albuterol sulfate [Ventolin HFA] 2 puff INHALATION PRN PRN 08/23/14 [History Last Taken 02/18/15] clopidogrel 75 mg PO DAILY 08/23/14 [History Last Taken 09/07/21] hydrocodone-acetaminophen 1 tab PO DAILY PRN 08/23/14 [History Last Taken 08/22/17] pravastatin 80 mg PO QHS 08/23/14 [History Last Taken 09/07/21] metoprolol tartrate 50 mg PO BID 02/17/15 [History Last Taken 09/07/21] aspirin 81 mg PO DAILY 09/08/21 [History Last Taken 09/07/21] lisinopril 10 mg PO BID 09/08/21 [History Last Taken 09/07/21] metformin 500 mg PO TID 09/08/21 [History Last Taken 09/07/21] Allergy/AdvReac Type Severity Reaction Status Date / Time acetaminophen Allergy Unknown Unknown Verified 09/08/21 07:47 [From Darvocet-N] amitriptyline HCl Allergy Unknown Unknown Verified 09/08/21 07:47 [From Elavil] atorvastatin calcium Allergy Unknown Unknown Verified 09/08/21 07:47 [From Lipitor] azithromycin [From Zithromax] Allergy Unknown Unknown Verified 09/08/21 07:47 cefaclor [Cefaclor] Allergy Unknown Unknown Verified 09/08/21 07:47 ciprofloxacin [From Cipro] Allergy Unknown Unknown Verified 09/08/21 07:47 ciprofloxacin HCl Allergy Unknown Unknown Verified 09/08/21 07:47 [From Cipro] hydroxyzine HCl [From Atarax] Allergy Unknown Unknown Verified 09/08/21 07:47 influenza virus vaccine, Allergy Unknown Unknown Verified 09/08/21 07:47 specific [Influenza Virus Vacc,Specific] iodine Allergy Unknown Unknown Verified 09/08/21 07:47 latex Allergy Unknown Unknown Verified 09/08/21 07:47 levofloxacin [From Levaquin] Allergy Unknown Unknown Verified 09/08/21 07:47 lidocaine Allergy Unknown Unknown Verified 09/08/21 07:47 lovastatin Allergy Unknown Unknown Verified 09/08/21 07:47 niacin Allergy Unknown Unknown Verified 09/08/21 07:47 Penicillins Allergy Unknown Unknown Verified 09/08/21 07:47 pneumococcal vaccine Allergy Unknown Unknown Verified 09/08/21 07:47 [Pneumococcal Vaccine] propoxyphene napsylate Allergy Unknown Unknown Verified 09/08/21 07:47 [From Darvocet-N] quinapril HCl [From Accupril] Allergy Unknown Unknown Verified 09/08/21 07:47 red dye Allergy Unknown Unknown Verified 09/08/21 07:47 rosuvastatin calcium Allergy Unknown Unknown Verified 09/08/21 07:47 [From Crestor] simvastatin Allergy Unknown Unknown Verified 09/08/21 07:47 Sulfa (Sulfonamide Allergy Unknown Unknown Verified 09/08/21 07:47 Antibiotics) Tetanus Vaccines and Toxoid Allergy Unknown Unknown Verified 09/08/21 07:47 [Tetanus Vaccines & Toxoid] tetracycline [Tetracycline] Allergy Unknown Unknown Verified 09/08/21 07:47 yellow dye Allergy Unknown Unknown Verified 09/08/21 07:47 fentanyl Allergy Unknown Verified 09/08/21 07:47 hydrochlorothiazide Allergy Unknown Verified 09/08/21 07:47 CREATINE MONOHYDRATE Allergy Unknown Unknown Uncoded 09/08/21 07:47 Family History Father CAD (coronary artery disease) Mother CAD (coronary artery disease) Brother CAD (coronary artery disease) Surgical History History of coronary artery stent placement (~01/05/03) History of right and left heart catheterization (~02/18/15) Social History Smoking Status: Former smoker ROS Review of Systems ROS Unobtainable: other Constitutional Constitutional: Denies fatigue, fever(s), poor appetite, weight gain or weight loss ENT HEENT: Denies mouth lesions Cardiovascular Cardiovascular: Denies abdominal bloating, abdominal edema or abdominal pain Respiratory/Chest Respiratory/Chest: Denies change in mental status, change in phlegm color, chest congestion or chest tightness Gastrointestinal Gastrointestinal: Denies belching, bloating, change in bowel habits, change in stool character, chewing difficulty, coffee ground emesis, constipation, cramping, diarrhea, dyspepsia, dysphagia, early satiety, excessive flatus, fecal incontinence, heartburn, hematemesis, hematochezia, hemorrhoids, loose stools, melena, nausea, odynophagia, rectal bleeding, tenesmus, vomiting or weight changes Genitourinary Genitourinary: Denies abdominal discomfort, burning urination or itching Musculoskeletal Musculoskeletal: Reports as per HPI; Denies muscle weakness or myalgias Integumentary Integumentary: Denies jaundice Neurologic Neurologic: Denies lack of coordination or weakness Psychiatric Psychiatric: Denies confusion, depression, memory loss, mood swings, paranoia or suicidal ideation Endocrine Endocrinology: Denies systems reviewed and no addt'l complaints, except as documented Hematologic/Lymphatic Hematologic/Lymphatic: Denies anemia, easy bleeding, easy bruising or lymphadenopathy Allergic/Immunologic Allergic/Immunologic: Denies systems reviewed and no addt'l complaints, except as documented Physical Exam Const alert General Appearance: cooperative Orientation / Consciousness: oriented to person HEENT hearing grossly normal bilaterally Head and Scalp: normal to inspection Face and Sinus: face symmetric Nose: external nose normal Mouth: oral and palatal mucosa normal Eyes conjunctivae normal General Eye: normal appearance of both eyes Neck full ROM General: normal visual inspection Lymph Lymphatic: no lymphadenopathy noted Chest inspection of chest normal and palpation of chest normal Chest: symmetrical chest wall rise Resp normal respiratory effort Effort and Inspection: able to speak in complete sentences Cardio regular rate GI non-distended Percussion: normal to percussion Rectal Exam: deferred Neuro Speech: speech normal Gait (Neuro): normal gait Medical Records Data Medical Nutrition Assessment Dietitian: Malnutrition Criteria Met Start: 09/08/21 15:16 Freq: Status: Active Protocol: Document 09/08/21 15:16 (Rec: 09/08/21 15:16 [id number]) Nutrition Malnutrition Evidence of Malnutrition Exists Yes Malnutrition (moderate): Chronic Evidenced By Suboptimal Energy Intake ( Moderate),Weight Loss ( Moderate) Clinical Problem Chronic Disease or Condition Related Malnutrition Etiology moderate, chronic malnutrition r/t inadequate energy intake d/t decrease in appetite Signs/Symptoms as evidenced by unintentional wt loss of 49#/17.19% over past 6-12months; estimated PO intake meeting <75% of estimated nutritional needs >3 months Status Active Problem Recommendation Dietitian Recommendations/Changes continue regular diet; will switch Glucerna to 120mL 4x/ day w/ medpass to encourage PO intake at meal times yet provide additional protein/ calories if consumed d/t signs /symptoms of chronic moderate malnutrition Lab / Micro Data Result Diagrams: 09/09/21 07:04 09/09/21 07:04 Labs: Laboratory Results - last 24 hr 09/08/21 11:07: POC Glucose 155 H 09/08/21 13:15: COVID-19 (ALLY) Not Detected 09/08/21 16:21: POC Glucose 95 09/08/21 22:32: POC Glucose 143 H 09/09/21 06:44: POC Glucose 153 H 09/09/21 07:04: WBC 3.6 L, RBC 3.42 L, Hgb 10.4 L, Hct 31.9 L, MCV 93.3, MCH 30.4, MCHC 32.6, RDW Std Deviation 45.4 H, RDW Coeff of Tracie 13.2, Plt Count 141 L, MPV 10.8, Immature Gran % (Auto) 1.100 H, Neut % (Auto) 83.6 H, Lymph % (Auto) 11.7 L, [place] % (Auto) 3.6, Eos % (Auto) 0.0, Baso % (Auto) 0.0, Absolute Neuts (auto) 3.0, Absolute Lymphs (auto) 0.42 L, Nucleated RBC % 0, Diff Path Review March, Platelet Estimate ADEQUATE, Hypochromasia RARE 09/09/21 07:04: Sodium 136, Potassium 4.4, Chloride 109 H, Carbon Dioxide 23.0, Anion Gap 4 L, BUN 21 H, Creatinine 1.15, Estim Creat Clear Calc 62.79, Est GFR (MDRD) Af Amer 80, Est GFR (MDRD) Non-Af 66, BUN/Creatinine Ratio 18.3, Glucose 159 H, Calcium 8.5, Phosphorus 3.2, Magnesium 1.7 09/09/21 11:00: POC Glucose 219 H Micro: Microbiology 09/08/21 08:44 Urine, Random Urine Culture - Preliminary Culture exhibits no growth. 09/08/21 08:44 Nasal Secretion SARS-CoV-2 Antigen (Rapid) - Final Radiology Impression Brain CT 09/09/21 06:00 IMPRESSION: 1. Chronic involutional changes of the brain. 2. No CT evidence of acute intracranial hemorrhage. Electronically Signed: Julia Strong MD at 7:24 EDT , Service support , Cervical Spine CT 09/09/21 06:00 IMPRESSION: 1. No CT evidence of acute compression displaced fracture. 2. Moderately severe multilevel degenerative disc disease and degenerative arthropathy cervical spine with neural foraminal narrowing and central canal stenosis, as described. Electronically Signed: Julia Strong MD at 7:39 EDT , Service support , Lumbar Spine CT 09/09/21 06:00 IMPRESSION: 1. Moderately severe multilevel degenerative disc disease and degenerative arthropathy of the lumbar spine with moderate central canal stenosis at L4-5. 2. No obvious acute fracture or dislocation. 3. Hemodynamically significant atherosclerotic disease of the distal abdominal aorta and imaged common iliac arteries. Electronically Signed: Julia Strong MD at 7:59 EDT , Service support , Thoracic Spine CT 09/09/21 06:00 IMPRESSION: 1. Multilevel thoracic spondylosis without obvious acute fracture. 2. No obvious spinal canal abscess is identified but MRI is a more sensitive test for this purpose. Electronically Signed: Julia Strong MD at 7:49 EDT , Service support , Assessment & Plan Assessment/Plan (1) Upper GI bleed: PLAN: Patient will undergo upper endoscopy to evaluate his upper GI tract. The different diagnosis does include celiac disease, peptic ulcer disease, ulcerative disease of the stomach or duodenum. His risk factors would be aspirin and Plavix therapy. And because of history of CAD also the differential diagnosis would be AVMs or telangiectasias of the upper GI tract. (2) Anemia: PLAN: Recommend to check iron studies. We will also get a colonoscopy to evaluate his lower GI tract. (3) Thrombocytopenia: PLAN: Patient did not know he had a history of thrombocytopenia. With his history of aspirin and Plavix therapy he is high risk for GI bleeding despite being off of anticoagulation. Charges/Coding Visit Charges Inpatient E&M: 63715 Init Hosp L3
--- NOTE | 2021-09-09 14:36 | CASEMGMT ---
SOCIAL WORK Updated by CM patient wanting referral to TCU. Left voicemail for Morelia Multani [phone] updating on referral. Plan: Referral to TCU Salvador Hutson, SAIL REPAIRER, FOOD PREPARATION SUPERVISOR
[2021-09-09] MEDS: Electrolyte Solution/Peg's 4000 ML 2000 ML PO (14:37)
[2021-09-09] MEDS: Bisacodyl 5 MG Tablet 20 MG PO (14:38)
[2021-09-09 16:40] LABS: Bedside Glucose 117 mg/dL (70-110)
[2021-09-09] MEDS: 0.9% Saline Lock 10 ML Syringe IV (17:02)
--- NOTE | 2021-09-09 20:17 | NURSING ---
FULLER BRUSH MAN told this RN that patient is frustrated and agitated, sitting at edge of bed and refuses to lay back in bed. This RN went into patient room and patient frustrated with staff. Patient told this RN that he hasn't seen anyone in 3 hours, he had to dump his own bedside commode and clean up after himself in the bathroom. When this RN looked at [facility] it was pressed up to the side of the wall, clean and lid open, dry, appears unused. Patient stated that he wanted to leave, that he wasn't going to going to finish the bowel prep and he was going to call his so he could leave. This RN offered to assist patient with phone telling him it was 66 then the number. Procedded to tell staff i know how to work your phones, I'm not simple. This RN left, patient attempting to dial phone. Patient then pressed the call light again, this RN responded. This RN went into patients room and patient asked for door to be shut. Patient apologizes to staff for his comments yet also stated he was still very upset about todays earlier events. This RN reassured patient that it was a new shift, the staff who were working with him, and POC. Patient seemed okay with these answers. Primary clerk specialist updated.
[2021-09-09] MEDS: MELATONIN 3 MG TABLET PO (20:56)
[2021-09-09] MEDS: Pravastatin 80 MG Tablet PO (20:58)
[2021-09-09 22:56] LABS: Bedside Glucose 121 mg/dL (70-110)
[2021-09-10] VITALS (12 sets, daily range): BP systolic 97–176; BP diastolic 39–96; PULSE 45–57; RESP 18; TEMP 35.8–36.7; O2SAT 96–100
--- NOTE | 2021-09-10 | IMM_PTH ---
PATIENT: GIANA TANG LOC: MS3 U#:[id number] AGE/SX: 71/M ROOM: [facility] RE09/08/[address]: Dr. Leticia Whyte MD : [id number] BED: 1 DIS: 09/11/2021 SPEC #: [id number] RECD: 09/12/21 11:05 STATUS: ELISA REQ #: [id number] LILIANA: 09/10/21 00:[address]: Fabio Armas DEPT: IMMUNOHISTOCHEMISTRY RECD BY: Vivi Woodward ENTERED: 09/12/21 11:06 SP TYPE: IMMUNO OTHR DR: MD Dr. Preston Polk MD Dr. David Kittoe, MD Dr. Joseph Prah, MD Dr. Linda Wang, MD Dr. Mark Elderbrock, MD Dr. Mansour Isckarus, MD Dr. Robert Field, MD Dr. Ryan Jin, MD Dr. Roger Macklis, MD Dr. Steve Walston, DO Carol Sheffield, RETAIL ATTENDANT-C Tissues: A - Esophagus, NOS Procedures: P53 (initial) KI-67 (add) PHYSICIAN & [place] [id number] SPECIMEN INFORMATION: Tissue Source: A ? Distal esophagus biopsy Clinical Info: Upper GI bleedjarod Specimen Number: [id number] CPT code: 47467, 77287 METHODOLOGY: Deparaffinized sections of prefer/formalin-fixed tissue or PAP/DQ stained slides are incubated with monoclonal/polyclonal antibodies/oligonucleotide probes. Localization is made via biotin free immunoperoxidase method. Appropriate controls are performed and reacted as expected. Results on target cell population are indicated in the following table: RESULTS: ANTIBODY / CLONE RESULT Block A P53 (DO-7) negative Ki-67 (30-9) negative These tests were developed and their performance characteristics determined by [facility]. They may not have been cleared or approved by the U.S. Food and Drug Administration. The FDA has determined that such clearance or approval is not necessary. The above immunohistochemical/dualISH markers are ordered and reviewed by the Pathologist. INTERPRETATION: A. Distal esophagus, biopsy: Goblet cell metaplasia. No evidence of dysplasia. AM:annabella 09/13/2021
[2021-09-10 06:58] LABS: Absolute Lymphocyte Count 1.74 X10^3/uL (0.83-4.51); Absolute Neutrophil Count 3.7 X10^3/uL (2.0-7.7); Basophil# 0.01 X10^3/uL; Basophil% 0.2 % (0-1); Eosinophils% 1.6 % (0-5); Hematocrit 27.8 % (40-54); Hemoglobin 8.9 g/dL (13.0-16.5); Lymphocyte # 1.74 X10^3/ul (0.83-4.51); Lymphocyte % 27.5 % (19-41); Mean Corpuscular Hgb 29.8 pg (27.0-32.0); Mean Platelet Vol. 11.5 fl (6.2-12.0); Monocyte# 0.71 X10^3/uL; Monocyte% 11.2 % (0-10); NRBC Flagged by Analyzer 0 % (0-5); Neutrophil # 3.74 X10^3/uL (2.7-7.7); Platelet Count 128 K/mm3 (150-450); RBC Distribution Width CV 13.1 % (11.6-14.6); RBC Distribution Width SD 44.7 fl (35.1-43.9); Red Blood Count 2.99 M/mm3 (4.6-6.2); White Blood Count 6.3 K/mm3 (4.4-11.0)
[2021-09-10 07:01] LABS: Bedside Glucose 90 mg/dL (70-110)
[2021-09-10 07:20] LABS: Anion Gap 7 (5-15); BUN 24 mg/dL (7-18); BUN/Creat Ratio 24.7 RATIO (10-20); Calcium,Total 8.2 mg/dL (8.5-10.1); Chloride 110 mmol/L (98-107); Creatinine, Serum 0.97 mg/dL (0.70-1.30); EST Glomerular Filtration Rate 80 mL/min (>60); Est Glom Filt Rate - Afr Amer 97 mL/min (>60); Estimated Creatinine Clearance 74.44 ml/min; Glucose 98 mg/dL (74-106); Potassium 3.8 mmol/L (3.5-5.1); Sodium Level 141 mmol/L (136-145)
--- NOTE | 2021-09-10 07:57 | PCM.PN.HOSP ---
Subjective Subjective Patient imaging studies from his cervical through his lumbar spine obtained demonstrated multilevel degenerative joint disease with no evidence of fracture no abscess. Patient however did respond to steroid administered in preparation for his imaging studies. A presumptive diagnosis of polymyalgia rheumatica made patient subsequently started on prednisone 15 mg daily. Underwent colonoscopy and EGD as part of evaluation to reinitiate systemic anticoagulation findings included colon cancer Objective Data Objective Data Vital Signs: Vital Signs Temp Pulse Resp BP Pulse Ox 97.9 F 50 L 18 171/59 H 98 09/10/21 07:38 09/10/21 07:38 09/10/21 07:38 09/10/21 07:38 09/10/21 07:38 Oxygen Delivery Method Room Air Weight: 108.8 kg Body Mass Index (BMI) 32.0 Intake & Output: Intake and Output for Last 24 Hours 09/08/21 09/09/21 09/10/21 23:59 23:59 22:59 Intake Total 1614.58 / 1614.58 3302.09 / 5732.09 2430 / 2430 Balance 1614.58 / 1614.58 3302.09 / 5732.09 2430 / 2430 Medical Nutrition Assessment Dietitian: Malnutrition Criteria Met Start: 09/08/21 15:16 Freq: Status: Active Protocol: Document 09/08/21 15:16 AG (Rec: 09/08/21 15:16 AG [id number]) Nutrition Malnutrition Evidence of Malnutrition Exists Yes Malnutrition (moderate): Chronic Evidenced By Suboptimal Energy Intake ( Moderate),Weight Loss ( Moderate) Clinical Problem Chronic Disease or Condition Related Malnutrition Etiology moderate, chronic malnutrition r/t inadequate energy intake d/t decrease in appetite Signs/Symptoms as evidenced by unintentional wt loss of 49#/17.19% over past 6-12months; estimated PO intake meeting <75% of estimated nutritional needs >3 months Status Active Problem Recommendation Dietitian Recommendations/Changes continue regular diet; will switch Glucerna to 120mL 4x/ day w/ medpass to encourage PO intake at meal times yet provide additional protein/ calories if consumed d/t signs /symptoms of chronic moderate malnutrition Lab / Micro Data Result Diagrams: 09/10/21 06:09 09/10/21 06:09 Labs: Laboratory Results - last 24 hr 09/09/21 11:00: POC Glucose 219 H 09/09/21 16:11: POC Glucose 117 H 09/09/21 21:05: POC Glucose 121 H 09/10/21 06:09: WBC 6.3, RBC 2.99 L, Hgb 8.9 L, Hct 27.8 L, MCV 93.0, MCH 29.8, MCHC 32.0, RDW Std Deviation 44.7 H, RDW Coeff of Tracie 13.1, Plt Count 128 L, MPV 11.5, Immature Gran % (Auto) 0.500, Neut % (Auto) 59.0, Lymph % (Auto) 27.5, [place] % (Auto) 11.2 H, Eos % (Auto) 1.6, Baso % (Auto) 0.2, Absolute Neuts (auto) 3.7, Absolute Lymphs (auto) 1.74, Nucleated RBC % 0 09/10/21 06:09: Sodium 141, Potassium 3.8, Chloride 110 H, Carbon Dioxide 24.0, Anion Gap 7, BUN 24 H, Creatinine 0.97, Estim Creat Clear Calc 74.44, Est GFR (MDRD) Af Amer 97, Est GFR (MDRD) Non-Af 80, BUN/Creatinine Ratio 24.7 H, Glucose 98, Calcium 8.2 L 09/10/21 06:53: POC Glucose 90 Micro: Microbiology 09/08/21 08:44 Urine, Random Urine Culture - Preliminary Culture exhibits no growth. 09/08/21 08:44 Nasal Secretion SARS-CoV-2 Antigen (Rapid) - Final Physical Exam Narrative GENERAL: cooperative HEENT: Atraumatic; EYES; Anicteric, Normal Conjunctiva NECK; supple, normal thyroid, RESPIRATORY: Diminished to auscultation CARDIOVASCULAR: Regular S1 S2, GI: soft, normoactive bowel sounds, : No Renal angle tenderness; EXTREMITIES: Bilateral knee excoriations MUSCULOSKELETAL: No joint swelling NEURO: Awake; no lateralizing signs significant weakness in both upper and lower extremities SKIN: No Rash PSYCH; Flat affect Assessment & Plan Assessment/Plan (1) Generalized weakness: (2) Fever: PLAN: Patient is a 71-year-old gentleman presented with progressive generalized weakness fever dysuria and frequency 1. Progressive generalized weakness ?Etiology not clear at this point. Patient has been admitted to a monitored bed for subsequent evaluation. Did order CPK aldolase ALEX TSH to rule out polymyositis. Also ordered lumbar puncture to evaluate for proteins for possible demyelinating disease. Consult placed to telemetry neurology. Also ordered imaging studies of the lumbar thoracic and cervical spine -09/09/2021. Consult was placed to telemetry neurology Case discussed with SOC telemetry neurologist recommended CT of the head without contrast, CT of the thoracic cervical and lumbar spine with and without contrast as patient had declined MRI -Given patient remarkable improvement following initiation of steroid do suspect polymyalgia rheumatica as the etiology of patient's progressive generalized weakness (has other features including elevated ESR and CRP). Patient had elevated CPK levels possibly related to prolonged period of immobilization ?09/10/2021; Patient imaging studies from his cervical through his lumbar spine obtained demonstrated multilevel degenerative joint disease with no evidence of fracture no abscess. Patient however did respond to steroid administered in preparation for his imaging studies. A presumptive diagnosis of polymyalgia rheumatica made patient subsequently started on prednisone 15 mg daily 2. Anemia ?Patient underwent colonoscopy and EGD as part of evaluation to reinitiate systemic anticoagulation findings included colon cancer. Consult subsequently placed to oncology and initial staging with CT of the chest abdomen and pelvis ordered 3. Acute febrile illness ?Initial work-up in the ED including rapid antigen test for COVID-19 and urinalysis unremarkable. Ordered Covid PCR test in addition to viral respiratory panel. Will treat fever symptomatically with Tylenol ?Infectious etiology so far negative to date. Patient low-grade fever may be explained by his PMR 4. Paroxysmal A. fib ?Patient was previously on systemic anticoagulation with rivaroxaban which was discontinued as a result of lower GI bleed -Neurology recommended consultation with GI for possible clearance for initiation of systemic anticoagulation given patient significant risk for stroke -EGD and colonoscopy resulted in the finding of colon cancer management as discussed above 5. Coronary artery disease ?With previous stent placement 6. Diabetes mellitus type 2 ?Diet controlled 7. Peripheral vascular disease ?Per history 8. Essential hypertension ?Currently not in any medications 9. DVT prophylaxis ?SC Lovenox Charges/Coding Visit Charges Inpatient E&M: 48680 [facility] Hosp L3
--- NOTE | 2021-09-10 08:05 | EGD_PTH ---
PATIENT: GIANA TANG LOC: MS3 U#:[id number] AGE/SX: 71/M ROOM: [facility] [place] RE09/08/[address]: Dr. Leticia Whyte MD : [id number] BED: 1 DIS: 09/11/2021 SPEC #: [id number] RECD: 09/10/21 09:38 STATUS: ELISA REQ #: [id number] LILIANA: 09/10/21 08:[address]: Fabio Armas DEPT: SURGICAL PATHOLOGY RECD BY: Alma Rosa Fernandez ENTERED: 09/11/21 08:17 SP TYPE: EGD BIOPSY OTHR DR: MD Dr. Preston Polk MD Dr. David Kittoe, MD Dr. Joseph Prah, MD Dr. Mark Elderbrock, MD Dr. Mansour Isckarus, MD Dr. Robert Field, MD Dr. Ryan Jin, MD Dr. Roger Macklis, MD Dr. Steve Walston, DO Tyra Schlabach, TAPPER SUPERVISOR-C Tissues: A - Esophagus, NOS B - COLON BIOPSY C - Rectum, NOS Procedures: Special Stain Group II Surgery Specimen Level IV Alcian Blue/PAS (control) Comments: @ Ordering doctor for SUIV edited from to @ by LYDIA at 09/12/21839 @ Submitting doctor edited from to @ by LYDIA at 09/12/2140 HEADER OPERATION: EGD, colonoscopy PRE-OP DIAGNOSIS: Upper GI bleed, anemia TISSUE SUBMITTED: A ? Distal esophagus biopsy, B ? Hepatic flexure polyp biopsy, C ? Rectal mass biopsy MICROSCOPIC DIAGNOSIS A. 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 No evidence of dysplasia. See comment. B. Colonic polyp at hepatic flexure, biopsy: Fragments of tubular adenoma. C. Rectal mass, biopsy: Fragments of tubulovillous adenoma. AM:annabella 09/12/2021 COMMENT A. Immunohistochemistry ([id number]) for P53 and Ki-67 will be performed and results will be reported separately. Alcian blue/PAS stain with matched control supports the above diagnosis. MICROSCOPIC DESCRIPTION Slides are reviewed. GROSS DESCRIPTION A - Received in fixative is one container labeled with the patient's name and designated distal esophagus biopsy. The specimen consists of two irregular fragments of light anderson soft tissue that in aggregate measure 0.4 x 0.2 x 0.1 cm. The specimen is totally submitted in one cassette. B - Received in fixative is one container labeled with the patient's name and designated hepatic flexure polyp biopsy. The specimen consists of two irregular fragments of light anderson soft tissue that in aggregate measure 1 x 0.3 x 0.1 cm. The specimen is totally submitted in one cassette. C - Received in fixative is one container labeled with the patient's name and designated rectal mass biopsy. The specimen consists of a anderson-pink polyp measuring 1 x 1 x 0.8 cm. The polyp is serially sectioned. Also present in the container are multiple fragments of anderson soft tissue measuring in aggregate 1 x 0.3 x 0.1 cm. The entire specimen is submitted in one cassette. / SJ:annabella 09/11/21 TC:1 CPT: 82927 x3, 90013
[2021-09-10] MEDS: predniSONE 5 MG Tablet 15 MG PO (09:52)
[2021-09-10] MEDS: Clopidogrel Bisulfate 75 MG Tablet PO (09:52)
[2021-09-10] MEDS: Lisinopril 10 MG Tablet PO ×2 (09:52→21:38)
[2021-09-10] MEDS: Aspirin 81 MG TAB.CHEW PO (09:56)
[2021-09-10] MEDS: Enoxaparin 40 MG/0.4 ML Syringe SC (09:59)
[2021-09-10 11:25] LABS: Bedside Glucose 124 mg/dL (70-110)
--- NOTE | 2021-09-10 16:03 | NURSING ---
[facility] Edgar at [phone] called and informed him is requesting they do a followup as they had asked about
[2021-09-10] MEDS: Insulin Lispro 100 UNIT/ML INSULN.PEN SC (16:41)
[2021-09-10 17:10] LABS: Bedside Glucose 158 mg/dL (70-110)
[2021-09-10] MEDS: predniSONE 10 MG Tablet 50 MG PO (18:58)
[2021-09-10] MEDS: Glucerna Shake 120 ML LIQUID PO (21:37)
[2021-09-10] MEDS: Metoprolol Tartrate 50 MG Tablet PO (21:38)
[2021-09-10] MEDS: Pravastatin 80 MG Tablet PO (21:39)
[2021-09-10 23:06] LABS: Bedside Glucose 136 mg/dL (70-110)
[2021-09-11] VITALS (8 sets, daily range): BP systolic 152–205; BP diastolic 57–65; PULSE 51–55; RESP 18; TEMP 36.4–36.6; O2SAT 95–97
[2021-09-11] MEDS: predniSONE 10 MG Tablet 50 MG PO ×2 (00:49→06:49)
[2021-09-11] MEDS: hydrALAZINE 20 MG/ML Vial 10 MG IV (03:58)
[2021-09-11] MEDS: 0.9% Saline Lock 10 ML Syringe IV (03:59)
[2021-09-11 07:06] LABS: Absolute Lymphocyte Count 0.76 X10^3/uL (0.83-4.51); Absolute Neutrophil Count 4.1 X10^3/uL (2.0-7.7); Basophil# 0.01 X10^3/uL; Basophil% 0.2 % (0-1); Lymphocyte # 0.76 X10^3/ul (0.83-4.51); Lymphocyte % 14.9 % (19-41); Mean Corp Hgb Conc 33.3 g/dL (32-36); Mean Corpuscular Hgb 30.5 pg (27.0-32.0); Mean Corpuscular Volume 91.5 fL (80-94); Mean Platelet Vol. 11.1 fl (6.2-12.0); Monocyte# 0.16 X10^3/uL; Monocyte% 3.1 % (0-10); NRBC Flagged by Analyzer 0 % (0-5); Neutrophil # 4.08 X10^3/uL (2.7-7.7); Platelet Count 142 K/mm3 (150-450); RBC Distribution Width CV 13.1 % (11.6-14.6); RBC Distribution Width SD 43.7 fl (35.1-43.9); Red Blood Count 3.28 M/mm3 (4.6-6.2); White Blood Count 5.1 K/mm3 (4.4-11.0)
[2021-09-11 07:10] LABS: Bedside Glucose 148 mg/dL (70-110)
[2021-09-11 07:38] LABS: Anion Gap 4 (5-15); BUN 24 mg/dL (7-18); BUN/Creat Ratio 22.4 RATIO (10-20); Calcium,Total 8.8 mg/dL (8.5-10.1); Chloride 110 mmol/L (98-107); Creatinine, Serum 1.07 mg/dL (0.70-1.30); EST Glomerular Filtration Rate 72 mL/min (>60); Est Glom Filt Rate - Afr Amer 87 mL/min (>60); Estimated Creatinine Clearance 67.49 ml/min; Glucose 145 mg/dL (74-106); Potassium 4.3 mmol/L (3.5-5.1); Sodium Level 139 mmol/L (136-145)
--- NOTE | 2021-09-11 08:00 | CT_ITS ---
STUDY: CT CHEST, ABDOMEN T PELVIS WITH CONTRAST REASON FOR EXAM: Male, 71 years old. Colon cancer. Weakness. RADIATION DOSAGE (If Supplied By Facility): CTDIvol = ( 23.70 ) mGy, DLP = ( 2178.41 ) mGycm TECHNIQUE: Transaxial imaging was performed following intravenous administration of IV 100mL Isovue-300. Individualized dose optimization techniques were used for this CT. COMPARISON: No relevant priors. FINDINGS: CHEST Hyperinflation. Emphysematous changes. No pulmonary nodule is seen. There is no demonstrated pleural abnormality. There are calcifications of the coronary arteries. There are multiple small lymph nodes within the mediastinum, which are normal in size and morphology most compatible with reactive lymph hyperplasia. Normal hilar regions. Normal unenhanced pulmonary arteries. There is atherosclerotic calcification of the aortic arch with tortuosity and elongation of the aortic arch and descending thoracic aorta. There are multi-level degenerative changes of the thoracic spine. ABDOMEN The visualized lung bases are unremarkable. The visualized portions of the heart are within normal limits. Normal liver. Normal gallbladder and extrahepatic biliary system. There is a benign calcified granuloma of the spleen. Normal pancreas. Normal bilateral adrenal glands. There is a 2.7 cm cyst in the mid lateral aspect of the right kidney. Intrarenal vascular calcification. Normal left kidney. Normal visualized stomach. Normal small intestine. There are multiple colonic diverticula consistent with diverticulosis. The appendix is visualized and appears normal. There is diffuse atherosclerotic calcification of the abdominal aorta and its major visceral branches, without a demonstrated aneurysm. Normal inferior vena cava. Normal retroperitoneum. There is a right-sided inguinal hernia containing adipose tissue. There are diffuse degenerative changes of the visualized lumbar spine. PELVIS Normal urinary bladder. Prostate calcification. There is no pelvic fluid. There is no pelvic lymphadenopathy or mass lesion. There is diffuse atherosclerotic calcification of the pelvic arteries. There is a right inguinal hernia containing fat. There are diffuse degenerative changes of the visualized lumbar spine. CT/CT Chest, Abd, Pel w/Contrast IMPRESSION: Right renal cyst. Scattered sigmoid diverticula. Electronically Signed: Blade Myles MD at 11:03 EST , Service support ,
[2021-09-11] MEDS: DiphenhydrAMINE 25 MG Capsule 50 MG PO (08:51)
[2021-09-11] MEDS: Lisinopril 10 MG Tablet PO (10:51)
[2021-09-11] MEDS: Clopidogrel Bisulfate 75 MG Tablet PO (10:51)
[2021-09-11] MEDS: predniSONE 5 MG Tablet 15 MG PO (10:52)
[2021-09-11] MEDS: Aspirin 81 MG TAB.CHEW PO (10:52)
[2021-09-11] MEDS: Metoprolol Tartrate 50 MG Tablet PO (10:56)
--- NOTE | 2021-09-11 11:38 | PCM.PN.HOSP ---
Objective Data Objective Data Vital Signs: Vital Signs Temp Pulse Resp BP Pulse Ox 97.7 F L 55 L 18 171/57 H 96 09/11/21 08:04 09/11/21 10:56 09/11/21 08:04 09/11/21 08:04 09/11/21 09:06 Oxygen Delivery Method Room Air Weight: 107.9 kg Body Mass Index (BMI) 32.0 Intake & Output: Intake and Output for Last 24 Hours 09/10/21 09/10/21 09/11/21 00:59 23:59 23:59 Intake Total 1001 / 1001 Balance 1001 / 1001 Medical Nutrition Assessment Dietitian: Malnutrition Criteria Met Start: 09/08/21 15:16 Freq: Status: Active Protocol: Document 09/08/21 15:16 AG (Rec: 09/08/21 15:16 AG [id number]) Nutrition Malnutrition Evidence of Malnutrition Exists Yes Malnutrition (moderate): Chronic Evidenced By Suboptimal Energy Intake ( Moderate),Weight Loss ( Moderate) Clinical Problem Chronic Disease or Condition Related Malnutrition Etiology moderate, chronic malnutrition r/t inadequate energy intake d/t decrease in appetite Signs/Symptoms as evidenced by unintentional wt loss of 49#/17.19% over past 6-12months; estimated PO intake meeting <75% of estimated nutritional needs >3 months Status Active Problem Recommendation Dietitian Recommendations/Changes continue regular diet; will switch Glucerna to 120mL 4x/ day w/ medpass to encourage PO intake at meal times yet provide additional protein/ calories if consumed d/t signs /symptoms of chronic moderate malnutrition Lab / Micro Data Result Diagrams: 09/11/21 06:20 09/11/21 06:20 Labs: Laboratory Results - last 24 hr 09/10/21 16:40: POC Glucose 158 H 09/10/21 21:43: POC Glucose 136 H 09/11/21 06:20: WBC 5.1, RBC 3.28 L, Hgb 10.0 L, Hct 30.0 L, MCV 91.5, MCH 30.5, MCHC 33.3, RDW Std Deviation 43.7, RDW Coeff of Tracie 13.1, Plt Count 142 L, MPV 11.1, Immature Gran % (Auto) 1.800 H, Neut % (Auto) 80.0 H, Lymph % (Auto) 14.9 L, [place] % (Auto) 3.1, Eos % (Auto) 0.0, Baso % (Auto) 0.2, Absolute Neuts (auto) 4.1, Absolute Lymphs (auto) 0.76 L, Nucleated RBC % 0 09/11/21 06:20: Sodium 139, Potassium 4.3, Chloride 110 H, Carbon Dioxide 25.0, Anion Gap 4 L, BUN 24 H, Creatinine 1.07, Estim Creat Clear Calc 67.49, Est GFR (MDRD) Af Amer 87, Est GFR (MDRD) Non-Af 72, BUN/Creatinine Ratio 22.4 H, Glucose 145 H, Calcium 8.8 09/11/21 06:51: POC Glucose 148 H Micro: Microbiology 09/08/21 08:44 Urine, Random Urine Culture - Final Culture exhibits no growth. 09/08/21 08:44 Nasal Secretion SARS-CoV-2 Antigen (Rapid) - Final Radiography Diagnostic Testing: Radiology Impression Chest/Abdomen/Pelvis CT 09/11/21 08:00 IMPRESSION: Right renal cyst. Scattered sigmoid diverticula. Electronically Signed: Blade Myles MD at 11:03 EST , Service support ,
[2021-09-11 12:45] LABS: Bedside Glucose 216 mg/dL (70-110)
[2021-09-11] MEDS: Insulin Lispro 100 UNIT/ML INSULN.PEN SC (13:05)
--- NOTE | 2021-09-11 13:25 | ONC.CONSULT ---
Assessment & Plan Assessment/Plan (1) Generalized weakness: Status: Acute Code(s): R53.1 - Weakness Plan: PMR vs Dermatomyositis, if it is related to cancer , it will resolve with cancer treatment. (2) Neoplasm of sigmoid colon: Status: Acute Code(s): D49.0 - Neoplasm of unspecified behavior of digestive system Plan: Sigmoid Colon mass, probable cancer. Suggest obtaining CEA level and Surgery Consult for management of localized colon cancer. Can follow up as outpatient on discharge from hospital. Will not follow further on this admission. HPI Consult Data Date of Service:: 09/11/21 PCP / Referring Provider: Dr. Ziyad Ruvalcaba MD Attending: Dr. Leticia Whyte MD Chief Complaint Chief Complaint: Asked to see Pt for sigmoid colon mass. History of Present Illness History of Present Illness: 71y.o.man presented with general weakness and fever, found to have anemia. He had colonoscopy on 09/10/2021 which showed a sigmoid colon mass, biopsy was taken and results are pending. He claims to have a history of ulcerative colitis but has not been on medication for years. Advanced Directives Power of Entertainment Reporter: Yes Living Will: Yes [facility] Medical History (Updated 09/11/21 @ 13:[address] Cole العراقي MD) Agent orange exposure Anemia Atherosclerosis of coronary artery of robinson heart without angina pectoris Carotid stenosis Chronic fatigue disorder COPD (chronic obstructive pulmonary disease) Esophagitis Hyperlipidemia Hypertension Non-rheumatic tricuspid valve insufficiency Nonrheumatic aortic valve insufficiency Osteoporosis Peripheral vascular occlusive disease Restless legs Sleep apnea Thrombocytopenia Type 2 diabetes mellitus without complications Home Medications albuterol sulfate [Ventolin HFA] 2 puff INHALATION PRN PRN 08/23/14 [History Last Taken 02/18/15] clopidogrel 75 mg PO DAILY 08/23/14 [History Last Taken 09/07/21] hydrocodone-acetaminophen 1 tab PO DAILY PRN 08/23/14 [History Last Taken 08/22/17] pravastatin 80 mg PO QHS 08/23/14 [History Last Taken 09/07/21] metoprolol tartrate 50 mg PO BID 02/17/15 [History Last Taken 09/07/21] aspirin 81 mg PO DAILY 09/08/21 [History Last Taken 09/07/21] lisinopril 10 mg PO BID 09/08/21 [History Last Taken 09/07/21] metformin 500 mg PO TID 09/08/21 [History Last Taken 09/07/21] Allergy/AdvReac Type Severity Reaction Status Date / Time acetaminophen Allergy Unknown Unknown Verified 09/08/21 07:47 [From Darvocet-N] amitriptyline HCl Allergy Unknown Unknown Verified 09/08/21 07:47 [From Elavil] atorvastatin calcium Allergy Unknown Unknown Verified 09/08/21 07:47 [From Lipitor] azithromycin [From Zithromax] Allergy Unknown Unknown Verified 09/08/21 07:47 cefaclor [Cefaclor] Allergy Unknown Unknown Verified 09/08/21 07:47 ciprofloxacin [From Cipro] Allergy Unknown Unknown Verified 09/08/21 07:47 ciprofloxacin HCl Allergy Unknown Unknown Verified 09/08/21 07:47 [From Cipro] hydroxyzine HCl [From Atarax] Allergy Unknown Unknown Verified 09/08/21 07:47 influenza virus vaccine, Allergy Unknown Unknown Verified 09/08/21 07:47 specific [Influenza Virus Vacc,Specific] iodine Allergy Unknown Unknown Verified 09/08/21 07:47 latex Allergy Unknown Unknown Verified 09/08/21 07:47 levofloxacin [From Levaquin] Allergy Unknown Unknown Verified 09/08/21 07:47 lidocaine Allergy Unknown Unknown Verified 09/08/21 07:47 lovastatin Allergy Unknown Unknown Verified 09/08/21 07:47 niacin Allergy Unknown Unknown Verified 09/08/21 07:47 Penicillins Allergy Unknown Unknown Verified 09/08/21 07:47 pneumococcal vaccine Allergy Unknown Unknown Verified 09/08/21 07:47 [Pneumococcal Vaccine] propoxyphene napsylate Allergy Unknown Unknown Verified 09/08/21 07:47 [From Darvocet-N] quinapril HCl [From Accupril] Allergy Unknown Unknown Verified 09/08/21 07:47 red dye Allergy Unknown Unknown Verified 09/08/21 07:47 rosuvastatin calcium Allergy Unknown Unknown Verified 09/08/21 07:47 [From Crestor] simvastatin Allergy Unknown Unknown Verified 09/08/21 07:47 Sulfa (Sulfonamide Allergy Unknown Unknown Verified 09/08/21 07:47 Antibiotics) Tetanus Vaccines and Toxoid Allergy Unknown Unknown Verified 09/08/21 07:47 [Tetanus Vaccines & Toxoid] tetracycline [Tetracycline] Allergy Unknown Unknown Verified 09/08/21 07:47 yellow dye Allergy Unknown Unknown Verified 09/08/21 07:47 fentanyl Allergy Unknown Verified 09/08/21 07:47 hydrochlorothiazide Allergy Unknown Verified 09/08/21 07:47 CREATINE MONOHYDRATE Allergy Unknown Unknown Uncoded 09/08/21 07:47 Family History Father CAD (coronary artery disease) Mother CAD (coronary artery disease) Brother CAD (coronary artery disease) Surgical History History of coronary artery stent placement (~01/05/03) History of right and left heart catheterization (~02/18/15) Social History Smoking Status: Former smoker ROS Constitutional Constitutional: Reports fatigue; Denies chills, fever(s) or night sweats ENT HEENT: Denies dysphagia or hoarseness Cardiovascular Cardiovascular: Reports clubbing and diaphoresis; Denies chest pain or dyspnea Respiratory/Chest Respiratory/Chest: Denies chest tightness Gastrointestinal Gastrointestinal: Denies abdominal pain Genitourinary Genitourinary: Denies change in urinary stream Musculoskeletal Musculoskeletal: Reports abnormal gait and muscle weakness Integumentary Integumentary: Reports alopecia and other Details: abrasion knees Neurologic Neurologic: Reports dizziness; Denies abnormal speech, behavior changes or confusion Psychiatric Psychiatric: Denies anxiety or depression Endocrine Endocrinology: Denies cold intolerance or flushing Hematologic/Lymphatic Hematologic/Lymphatic: Denies easy bleeding, easy bruising or lymphadenopathy Physical Exam Const alert and oriented x3 Orientation / Consciousness: oriented to person HEENT normocephalic Eyes PERRL and no scleral icterus Neck supple Lymph Lymphatic: no lymphadenopathy noted Chest inspection of chest normal Resp normal respiratory effort and clear to auscultation bilaterally Cardio regular rate, regular rhythm, S1 normal heart sound, S2 normal heart sound and no murmurs GI normal to inspection, nondistended, normoactive bowel sounds Bladder / Kidney Exam: no CVA tenderness Extremity normal to inspection and no clubbing, cyanosis or edema Skin Skin Narrative: abrasion knees Neuro CN's II-XII intact bilaterally and no focal motor deficits Psych mental status grossly normal Vital Signs Temperature 97.7 F L 09/11/21 08:04 Temperature Source Oral 09/11/21 08:04 Pulse Rate 55 L 09/11/21 10:56 Respiratory Rate 18 09/11/21 08:04 Respiratory Effort Non-Labored 09/11/21 03:27 Respiratory Depth Normal 09/11/21 03:27 Respiratory Pattern Normal 09/11/21 03:27 Blood Pressure 171/57 H 09/11/21 08:04 Blood Pressure Mean 95 09/11/21 08:04 Blood Pressure Source Monitor 09/11/21 08:04 Blood Pressure Position Semi-Fowlers 09/11/21 08:04 Blood Pressure Location Right Arm 09/11/21 08:04 Baseline BP 171/54 09/10/21 09:20 Pulse Ox 96 09/11/21 09:06 Oxygen Delivery Method Room Air 09/11/21 08:04 Laboratory Results - last 24 hr 09/10/21 16:40: POC Glucose 158 H 09/10/21 21:43: POC Glucose 136 H 09/11/21 06:20: WBC 5.1, RBC 3.28 L, Hgb 10.0 L, Hct 30.0 L, MCV 91.5, MCH 30.5, MCHC 33.3, RDW Std Deviation 43.7, RDW Coeff of Tracie 13.1, Plt Count 142 L, MPV 11.1, Immature Gran % (Auto) 1.800 H, Neut % (Auto) 80.0 H, Lymph % (Auto) 14.9 L, [place] % (Auto) 3.1, Eos % (Auto) 0.0, Baso % (Auto) 0.2, Absolute Neuts (auto) 4.1, Absolute Lymphs (auto) 0.76 L, Nucleated RBC % 0 09/11/21 06:20: Sodium 139, Potassium 4.3, Chloride 110 H, Carbon Dioxide 25.0, Anion Gap 4 L, BUN 24 H, Creatinine 1.07, Estim Creat Clear Calc 67.49, Est GFR (MDRD) Af Amer 87, Est GFR (MDRD) Non-Af 72, BUN/Creatinine Ratio 22.4 H, Glucose 145 H, Calcium 8.8 09/11/21 06:51: POC Glucose 148 H 09/11/21 12:38: POC Glucose 216 H Microbiology 09/08/21 08:44 Urine, Random Urine Culture - Final Culture exhibits no growth. Diagnostic Data Chest X-Ray 09/08/21 08:50 IMPRESSION: Hyperinflation. No acute abnormality is seen. Electronically Signed: Blade Myles MD at 9:24 EDT , Service support , Brain CT 09/09/21 06:00 IMPRESSION: 1. Chronic involutional changes of the brain. 2. No CT evidence of acute intracranial hemorrhage. Electronically Signed: Julia Strong MD at 7:24 EDT , Service support , Cervical Spine CT 09/09/21 06:00 IMPRESSION: 1. No CT evidence of acute compression displaced fracture. 2. Moderately severe multilevel degenerative disc disease and degenerative arthropathy cervical spine with neural foraminal narrowing and central canal stenosis, as described. Electronically Signed: Julia Strong MD at 7:39 EDT , Service support , Lumbar Spine CT 09/09/21 06:00 IMPRESSION: 1. Moderately severe multilevel degenerative disc disease and degenerative arthropathy of the lumbar spine with moderate central canal stenosis at L4-5. 2. No obvious acute fracture or dislocation. 3. Hemodynamically significant atherosclerotic disease of the distal abdominal aorta and imaged common iliac arteries. Electronically Signed: Julia Strong MD at 7:59 EDT , Service support , Thoracic Spine CT 09/09/21 06:00 IMPRESSION: 1. Multilevel thoracic spondylosis without obvious acute fracture. 2. No obvious spinal canal abscess is identified but MRI is a more sensitive test for this purpose. Electronically Signed: Julia Strong MD at 7:49 EDT , Service support , Chest/Abdomen/Pelvis CT 09/11/21 08:00 IMPRESSION: Right renal cyst. Scattered sigmoid diverticula. Electronically Signed: Blade Myles MD at 11:03 EST , Service support , Charges/Coding Visit Charges Office Visits / Consults: 81811 IP Consult L3
--- NOTE | 2021-09-11 14:05 | CASEMGMT ---
Social Work Note SW received call from [facility] in [facility]CU stating no beds available. SW in to speak with pt. SW introduced self and role at [facility]. Pt is alert and orientated, engages appropriately in conversation. SW spoke with pt regarding discharge plans. Pt confirms that he wanted to discharge to TCU. SW informed pt that at this time TCU has no beds available. SW informed pt that if he is adamant he needs SNF, he will need to go to a SNF in the community. Pt states that is not an option and he will discharge home. Pt states that he has exercises at home then he can do and feels safe going home. SW informed pt that HHC could be arranged for PT/OT or pt could go to outpatient therapy. Pt states he wouldn't be able to make it to outpatient therapy. SW informed pt that PT/OT in the home could be arranged, pt denied HHC. Pt again states he has his own exercises he can do. SW asked pt about DME. Pt states that he has walker, cane, and shower chair. Pt denied the need for any additional DME. Pt states that his is supportive and feels that she can assist if needed. Pt states that his has two types of cancer (skin cancer and leukemia). SW offered support to pt and that it must be difficult to see his have cancer. Pt asked this worker what [employer] would cover at SNF. SW informed pt that without calling his insurance this worker doesn't know but states he would need to get insurance approval before he could discharge to SNF. Pt asked about any assistance for a completely disabled vet. SW encouraged pt to call the [facility] to gather assistance/resources for [facility]. Pt states he is aware of [facility] and states he will follow up with them at discharge. Pt denied additional needs or concerns at this time. Pt again stating he will return home now. Pt denied the need for HHC or any additional DME. SW did review PT notes. Pt walked 115ft contact guard. CHUCK updated ANISA CM. Viv Hensley GATE CUTTER, TRAIL CONSTRUCTION WORKER
[2021-09-11 14:18] LABS: ANTINUCLEAR ANTIBODIES DIRECT Negative (Negative)
--- NOTE | 2021-09-11 15:00 | CASEMGMT ---
Addendum entered by Viv Hensley 09/11/21 18:11: SW also spoke with pt about Mental Health History. Pt denied any current Mental Health. Pt states that he used to have depression but he beat that. Pt denied any history of suicidal thoughts/plans/ideations. Pt denied any current suicidal thoughts/plans/ideations. Original Note: Social Work Note SW updated that pt is to discharge home today and pt is aware of new colon cancer diagnosis. SW in to speak with pt. Pt confirms that he is aware of Colon Cancer diagnosis. Pt states I knew it was Cancer. Pt states when I went down for the colonoscopy, they told me it looked liked cancer. SW offered support to pt. Pt states that he plans on following up with colon doctor and oncologist. Pt states the most difficult part of this, is getting insurance to approve it all. Pt states I have to find a doctor that takes my insurance and then get approval for tests/procedures. SW informed pt that it can be difficult trying to naviagate insurances. Pt states that he is being referred to [facility] for colon doctor. Pt again states that he is going home and will do his exercises so that he is strong enough to have surgery. Pt states if I get home and I am having difficulty, do I just call you. SW informed pt that this worker cannot really help him when he is back home, but informed pt that if he decides he needs HHC or SNF, he can call his PCP and his PCP can arrange both HHC and SNF. Pt states understanding. SW offered to provide pt with cancer resources/support and pt states he doesn't need that right now. SW informed pt that if needs resources later on for his cancer to speak with his oncologist and they will be able to provide pt with resources/support groups. Pt states understanding. pt denied additional needs or concerns at this time. Plan: Home Viv Hensley HEALTH INFORMATION CLERK, HOOP FLARING MACHINE OPERATOR
--- NOTE | 2021-09-11 15:13 | PCM.DC ---
Discharge Instructions Diet Discharge Diet: No restrictions Follow Up Care Test Results: Test results from this visit will be discussed in further detail at your follow-up appointment, if applicable. Discharge Plan Admission Admit Date/Time: 09/08/21 09:37 Primary Reason for Your Visit: Generalized weakness Attending Provider: Leticia Whyte Primary Care Provider: Ziyad Ruvalcaba Consulting Providers: Preston Peoples ; Cole العراقي ; Danni Amezcua ; Zohaib Voss ; Avery Sesay ; Deon Ledbetter ; Satnam Roger ; Carol Sheffield BOX TRUCK OWNER OPERATOR ; Monalisa Valentino Instructions Additional Instructions / Restrictions: Take note of your medications. Follow-up with your tractor technician within 2 weeks. Follow-up with Dr. Valentino and Dr. العراقي as scheduled. Discharge Orders/Prescriptions Prescriptions: New prednisone 5 mg Tablet 15 mg PO BREAKFAST 30 Days Qty: 90 RF: 0 metformin 1,000 mg tablet 1,000 mg PO BID 30 Days Qty: 60 RF: 0 Continued clopidogrel 75 MG tablet 75 mg PO DAILY RF: 0 hydrocodone-acetaminophen 1 EACH tablet 1 tab PO DAILY PRN (Reason: Back Pain) RF: 0 pravastatin 20 MG tablet 80 mg PO QHS RF: 0 albuterol sulfate [Ventolin HFA] 1 INHALER inhaler 2 puff inhalation PRN PRN (Reason: Shortness Of Breath) RF: 0 metoprolol tartrate 50 MG tablet 50 mg PO BID RF: 0 lisinopril 10 mg tablet 10 mg PO BID RF: 0 aspirin 81 mg Tablet 81 mg PO DAILY RF: 0 Discontinued metformin 500 mg tablet extended release 24 hr 500 mg PO TID RF: 0 Referrals / Follow Up: Ziyad Ruvalcaba MD [Primary Care Provider] - Within 2 Weeks Cole العراقي MD [NON-STAFF] - Within 2 Weeks Monalisa Valentino MD [STAFF PHYSICIAN] - Within 2 Weeks Disposition Disposition (needs filled in before D/C Order can be placed): Home, Self Care
--- NOTE | 2021-09-11 16:21 | PCM.DC.SUM ---
Providers Date of Admission: 09/08/21 Date of Discharge: 09/11/21 Primary Care Physician: Dr. Ziyad Ruvalcaba MD Consultations 09/09/21 09:32 Consult: Gastroenterology Routine Consulting Provider: [facility] Reason for Consult: Hx of Gi Bleed ; afib EMERGENT Consult: No Notified: Yes Date Notified: 09/09/21 Time Notified: 09:32 Method of Notification: Text 09/10/21 15:41 Consult: Oncology/Hematology [facility]ine [facility] Reason for Consult: colon Ca newly diagnosed EMERGENT Consult: No Notified: Yes Date Notified: 09/10/21 Time Notified: 15:57 Method of Notification: Verbal 09/11/21 13:23 Consult: General Surgery Routine Consulting Provider: Monalisa Alexandra Reason for Consult: Sigmoid CA EMERGENT Consult: No Notified: Yes Date Notified: 09/11/21 Time Notified: 13:23 Method of Notification: Provider Initiated Reason For Visit: FAILURE TO THRIVE, POSSIBLE CYSTITIS Diagnosis Discharge Diagnosis (1) Generalized weakness: Status: Acute Code(s): R53.1 - Weakness (2) Neoplasm of sigmoid colon: Status: Acute Code(s): D49.0 - Neoplasm of unspecified behavior of digestive system (3) Polymyalgia rheumatica: Status: Acute Code(s): M35.3 - Polymyalgia rheumatica (4) Anemia: Status: Acute Code(s): D64.9 - Anemia, unspecified (5) Malnutrition of moderate degree: Status: Acute Code(s): E44.0 - Moderate protein-calorie malnutrition Medications at Discharge Home Medications albuterol sulfate [Ventolin HFA] 2 puff INHALATION PRN PRN 08/23/14 clopidogrel 75 mg PO DAILY 08/23/14 hydrocodone-acetaminophen 1 tab PO DAILY PRN 08/23/14 pravastatin 80 mg PO QHS 08/23/14 metoprolol tartrate 50 mg PO BID 02/17/15 aspirin 81 mg PO DAILY 09/08/21 lisinopril 10 mg PO BID 09/08/21 metformin 1,000 mg PO BID 30 Days #60 tab 09/11/21 prednisone 15 mg PO BREAKFAST 30 Days #90 tab 09/11/21 Hospital Course Operations None Procedures None Summary of Care Provided Minutes Spent on Discharge: 45 Hospital Course: 71-year-old male with past medical history of Type II DM, hypertension, CAD status post stent comes in with a 5-day history of generalized weakness. Patient stated that he has been progressively weak and has weakness in both upper extremities to the point that he has to crawl. He complains of subjective fevers as high as 103 and chills. His COVID-19 rapid antigen is negative. Patient had history of GI bleed 2 years ago and has been off anticoagulation. [facility] teleneurology were consulted and recommended MRI cervical, thoracic and lumbar spine for his generalized weakness. He refused to have an MRI on account of claustrophobia. CT of the head, cervical spine, thoracic and lumbar spine with and without contrast were recommended. Patient had reported allergy to contrast and was prepped with steroids. He is surprisingly improved remarkably with initiation of steroids. Results of the CT scans showed multilevel degenerative disease. GI was consulted for possible clearance for initiation of systemic anticoagulation given patient's significant risk for stroke. ED on 09/10/21 showed reflux esophagitis that was biopsied. No mass,, nonbleeding duodenal diverticulum. Colonoscopy on 09/11/21 showed an infiltrative partially obstructing large mass in the rectosigmoid region. The mass was partially circumferential involving one half of the lumen circumference and measured 3 cm in length, depth was 23 mm. No bleeding was present. This was biopsied with cold forceps and a hot snare. A 5 mm polyp was also found in the hepatic flexure, the polyp was sessile. The polyp was removed with jumbo cold forceps well as a hot flare. Multiple small and large mouth diverticula were found in the sigmoid colon and descending colon. There is no evidence of diverticular bleeding. Hemoglobin remained stable at 10.0. He had evidence of moderate protein calorie malnutrition and archives director was consulted and placed on supplements. Oncology was consulted and recommended general surgery consulted. General surgery saw patient and recommended follow-up in the outpatient for sigmoid cancer resection. He was discharged on prednisone for 15 mg daily. He told me at discharge that he has a history of polymyalgia rheumatica and follows up with the physician close to [place]. He did not know the number to the doctor's office. I recommended he stays on the same dose of prednisone until he sees his investment analyst. This was communicated to Dr. Ruvalcaba. Physical Exam Narrative General: Alert, Oriented x3, Cooperative, No apparent distress HEENT: Atraumatic, PERRLA, EOMI, Normocephalic Oral: Moist Mucosa Neck: Supple Lungs: Normal air movement, Diminished Cardiovascular: Regular rate, Regular Rhythm, Normal S1, Normal S2, No murmurs Abdomen: Bowel Sounds Present, Soft, Non Tender, Non-Distended, No Hepato-splenomegaly Extremities: No edema Medical Records Data Medical Nutrition Assessment Dietitian: Malnutrition Criteria Met Start: 09/08/21 15:16 Freq: Status: Active Protocol: Document 09/11/21 13:40 RMA (Rec: 09/11/21 13:40 RMA [id number]) Nutrition Malnutrition Evidence of Malnutrition Exists Yes Malnutrition (moderate): Chronic Evidenced By Suboptimal Energy Intake ( Moderate),Weight Loss ( Moderate) Clinical Problem Chronic Disease or Condition Related Malnutrition Etiology moderate, chronic malnutrition r/t inadequate energy intake and increased energy expenditure of catabolic disease Signs/Symptoms as evidenced by unintentional wt loss of 49#/17.19% over past 6-12months; estimated PO intake meeting <75% of estimated nutritional needs >3 months Status Active Problem Recommendation Dietitian Recommendations/Changes Will continue Regular Diet and Glucerna Shake 120mL 4x/day w / medpass as ordered for now. Monitor need to restrict carbohydrates when PO improves at meals. Weight / BMI Weight Weight: 107.9 kg Body Mass Index (BMI) 32.0 ABG / Lab / Microbiology Data Result Diagrams: 09/11/21 06:20 09/11/21 06:20 Laboratory: Laboratory Results - last 24 hr 09/08/21 07:40: ALEX Screen Negative 09/10/21 16:40: POC Glucose 158 H 09/10/21 21:43: POC Glucose 136 H 09/11/21 06:20: WBC 5.1, RBC 3.28 L, Hgb 10.0 L, Hct 30.0 L, MCV 91.5, MCH 30.5, MCHC 33.3, RDW Std Deviation 43.7, RDW Coeff of Tracie 13.1, Plt Count 142 L, MPV 11.1, Immature Gran % (Auto) 1.800 H, Neut % (Auto) 80.0 H, Lymph % (Auto) 14.9 L, [place] % (Auto) 3.1, Eos % (Auto) 0.0, Baso % (Auto) 0.2, Absolute Neuts (auto) 4.1, Absolute Lymphs (auto) 0.76 L, Nucleated RBC % 0 09/11/21 06:20: Sodium 139, Potassium 4.3, Chloride 110 H, Carbon Dioxide 25.0, Anion Gap 4 L, BUN 24 H, Creatinine 1.07, Estim Creat Clear Calc 67.49, Est GFR (MDRD) Af Amer 87, Est GFR (MDRD) Non-Af 72, BUN/Creatinine Ratio 22.4 H, Glucose 145 H, Calcium 8.8 09/11/21 06:51: POC Glucose 148 H 09/11/21 12:38: POC Glucose 216 H Microbiology: Microbiology 09/08/21 08:44 Urine, Random Urine Culture - Final Culture exhibits no growth. 09/08/21 08:44 Nasal Secretion SARS-CoV-2 Antigen (Rapid) - Final Radiography Diagnostic Testing: Radiology Impression Chest/Abdomen/Pelvis CT 09/11/21 08:00 IMPRESSION: Right renal cyst. Scattered sigmoid diverticula. Electronically Signed: Blade Myles MD at 11:03 EST , Service support , D/C Instructions Discharge Diet: No restrictions Meaningful Use Info Meaningful Use Diagnoses (Choose all that apply): None applicable Discharge Plan Admission Admit Date/Time: 09/08/21 09:37 Primary Reason for Your Visit: Generalized weakness Attending Provider: Leticia Whyte Primary Care Provider: Ziyad Ruvalcaba Consulting Providers: Preston Peoples ; Cole Villasenor ; Danni Amezcua ; Zohaib Voss ; Avery Sesay ; Deon Ledbetter ; Satnam Roger ; Carol Sheffield NP ; Monalisa Alexandra Instructions Additional Instructions / Restrictions: Take note of your medications. Follow-up with your investment analyst within 2 weeks. Follow-up with Dr. Alexandra and Dr. Villasenor as scheduled. Discharge Orders/Prescriptions Prescriptions: New prednisone 5 mg Tablet 15 mg PO BREAKFAST 30 Days Qty: 90 RF: 0 metformin 1,000 mg tablet 1,000 mg PO BID 30 Days Qty: 60 RF: 0 Continued clopidogrel 75 MG tablet 75 mg PO DAILY RF: 0 hydrocodone-acetaminophen 1 EACH tablet 1 tab PO DAILY PRN (Reason: Back Pain) RF: 0 pravastatin 20 MG tablet 80 mg PO QHS RF: 0 albuterol sulfate [Ventolin HFA] 1 INHALER inhaler 2 puff inhalation PRN PRN (Reason: Shortness Of Breath) RF: 0 metoprolol tartrate 50 MG tablet 50 mg PO BID RF: 0 lisinopril 10 mg tablet 10 mg PO BID RF: 0 aspirin 81 mg Tablet 81 mg PO DAILY RF: 0 Discontinued metformin 500 mg tablet extended release 24 hr 500 mg PO TID RF: 0 Referrals / Follow Up: Cole Villasenor MD [NON-STAFF] - Within 2 Weeks (APPOINTMENT: DR. VILLASENOR ON @ 2:00PM.) Monalisa Alexandra MD [STAFF PHYSICIAN] - Within 2 Weeks ([facility] STATED THAT AFTER DR. ALEXANDRA REVIEWED CHART THEY WOULD CALL PATIENT FOR APPOINTMENT.) Ziyad Ruvalcaba MD [Primary Care Provider] - Within 2 Weeks (APPOINTMENT: ON September @ 10:20AM) Disposition Disposition (needs filled in before D/C Order can be placed): Home, Self Care Charges/Coding Visit Charges Inpatient E&M: 22243 Disch Hosp
--- NOTE | 2021-09-11 17:10 | EX.PCM.CON.S ---
Assessment & Plan Assessment/Plan (1) Neoplasm of sigmoid colon: PLAN: Can discharge patient if medically stable. I will arrange for surgical treatment of sigmoid cancer at a [facility] facility as per patient's request. HPI Consult Data Date of Consult: 09/11/21 HPI Narrative HPI Narrative: GIANA TANG, is a 71 M who presents with findings of sigmoid colon cancer noted by appearance, pathology is pending. [facility] Medical History (Updated 09/11/21 @ 13:[address] 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 Osteoporosis Peripheral vascular occlusive disease Restless legs Sleep apnea Thrombocytopenia Type 2 diabetes mellitus without complications Home Medications albuterol sulfate [Ventolin HFA] 2 puff INHALATION PRN PRN 08/23/14 [History Last Taken 02/18/15] clopidogrel 75 mg PO DAILY 08/23/14 [History Last Taken 09/07/21] hydrocodone-acetaminophen 1 tab PO DAILY PRN 08/23/14 [History Last Taken 08/22/17] pravastatin 80 mg PO QHS 08/23/14 [History Last Taken 09/07/21] metoprolol tartrate 50 mg PO BID 02/17/15 [History Last Taken 09/07/21] aspirin 81 mg PO DAILY 09/08/21 [History Last Taken 09/07/21] lisinopril 10 mg PO BID 09/08/21 [History Last Taken 09/07/21] metformin 1,000 mg PO BID 30 Days #60 tab 09/11/21 [Rx Last Taken Unknown] prednisone 15 mg PO BREAKFAST 30 Days #90 tab 09/11/21 [Rx Last Taken Unknown] Allergy/AdvReac Type Severity Reaction Status Date / Time acetaminophen Allergy Unknown Unknown Verified 09/08/21 07:47 [From Darvocet-N] amitriptyline HCl Allergy Unknown Unknown Verified 09/08/21 07:47 [From Elavil] atorvastatin calcium Allergy Unknown Unknown Verified 09/08/21 07:47 [From Lipitor] azithromycin [From Zithromax] Allergy Unknown Unknown Verified 09/08/21 07:47 cefaclor [Cefaclor] Allergy Unknown Unknown Verified 09/08/21 07:47 ciprofloxacin [From Cipro] Allergy Unknown Unknown Verified 09/08/21 07:47 ciprofloxacin HCl Allergy Unknown Unknown Verified 09/08/21 07:47 [From Cipro] hydroxyzine HCl [From Atarax] Allergy Unknown Unknown Verified 09/08/21 07:47 influenza virus vaccine, Allergy Unknown Unknown Verified 09/08/21 07:47 specific [Influenza Virus Vacc,Specific] iodine Allergy Unknown Unknown Verified 09/08/21 07:47 latex Allergy Unknown Unknown Verified 09/08/21 07:47 levofloxacin [From Levaquin] Allergy Unknown Unknown Verified 09/08/21 07:47 lidocaine Allergy Unknown Unknown Verified 09/08/21 07:47 lovastatin Allergy Unknown Unknown Verified 09/08/21 07:47 niacin Allergy Unknown Unknown Verified 09/08/21 07:47 Penicillins Allergy Unknown Unknown Verified 09/08/21 07:47 pneumococcal vaccine Allergy Unknown Unknown Verified 09/08/21 07:47 [Pneumococcal Vaccine] propoxyphene napsylate Allergy Unknown Unknown Verified 09/08/21 07:47 [From Darvocet-N] quinapril HCl [From Accupril] Allergy Unknown Unknown Verified 09/08/21 07:47 red dye Allergy Unknown Unknown Verified 09/08/21 07:47 rosuvastatin calcium Allergy Unknown Unknown Verified 09/08/21 07:47 [From Crestor] simvastatin Allergy Unknown Unknown Verified 09/08/21 07:47 Sulfa (Sulfonamide Allergy Unknown Unknown Verified 09/08/21 07:47 Antibiotics) Tetanus Vaccines and Toxoid Allergy Unknown Unknown Verified 09/08/21 07:47 [Tetanus Vaccines & Toxoid] tetracycline [Tetracycline] Allergy Unknown Unknown Verified 09/08/21 07:47 yellow dye Allergy Unknown Unknown Verified 09/08/21 07:47 fentanyl Allergy Unknown Verified 09/08/21 07:47 hydrochlorothiazide Allergy Unknown Verified 09/08/21 07:47 CREATINE MONOHYDRATE Allergy Unknown Unknown Uncoded 09/08/21 07:47 Family History Father CAD (coronary artery disease) Mother CAD (coronary artery disease) Brother CAD (coronary artery disease) Surgical History History of coronary artery stent placement (~03/04/03) History of right and left heart catheterization (~02/18/15) Social History Smoking Status: Former smoker Medical Records Data Medical Nutrition Assessment Dietitian: Malnutrition Criteria Met Start: 09/08/21 15:16 Freq: Status: Active Protocol: Document 09/11/21 13:40 RMA (Rec: 09/11/21 13:40 RMA [id number]) Nutrition Malnutrition Evidence of Malnutrition Exists Yes Malnutrition (moderate): Chronic Evidenced By Suboptimal Energy Intake ( Moderate),Weight Loss ( Moderate) Clinical Problem Chronic Disease or Condition Related Malnutrition Etiology moderate, chronic malnutrition r/t inadequate energy intake and increased energy expenditure of catabolic disease Signs/Symptoms as evidenced by unintentional wt loss of 49#/17.19% over past 6-12months; estimated PO intake meeting <75% of estimated nutritional needs >3 months Status Active Problem Recommendation Dietitian Recommendations/Changes Will continue Regular Diet and Glucerna Shake 120mL 4x/day w / medpass as ordered for now. Monitor need to restrict carbohydrates when PO improves at meals. Lab / Micro Data Result Diagrams: 09/11/21 06:20 09/11/21 06:20 Labs: Laboratory Results - last 24 hr 09/08/21 07:40: ALEX Screen Negative 09/10/21 16:40: POC Glucose 158 H 09/10/21 21:43: POC Glucose 136 H 09/11/21 06:20: WBC 5.1, RBC 3.28 L, Hgb 10.0 L, Hct 30.0 L, MCV 91.5, MCH 30.5, MCHC 33.3, RDW Std Deviation 43.7, RDW Coeff of Tracie 13.1, Plt Count 142 L, MPV 11.1, Immature Gran % (Auto) 1.800 H, Neut % (Auto) 80.0 H, Lymph % (Auto) 14.9 L, [place] % (Auto) 3.1, Eos % (Auto) 0.0, Baso % (Auto) 0.2, Absolute Neuts (auto) 4.1, Absolute Lymphs (auto) 0.76 L, Nucleated RBC % 0 09/11/21 06:20: Sodium 139, Potassium 4.3, Chloride 110 H, Carbon Dioxide 25.0, Anion Gap 4 L, BUN 24 H, Creatinine 1.07, Estim Creat Clear Calc 67.49, Est GFR (MDRD) Af Amer 87, Est GFR (MDRD) Non-Af 72, BUN/Creatinine Ratio 22.4 H, Glucose 145 H, Calcium 8.8 09/11/21 06:51: POC Glucose 148 H 09/11/21 12:38: POC Glucose 216 H Radiology Impression Chest/Abdomen/Pelvis CT 09/11/21 08:00 IMPRESSION: Right renal cyst. Scattered sigmoid diverticula. Electronically Signed: Blade Myles MD at 11:03 EST , Service support ,
[2021-09-11 17:35] LABS: Bedside Glucose 123 mg/dL (70-110)
--- NOTE | 2021-09-12 13:57 | CASEMGMT ---
ANISA MACIAS Discharge Follow Up Phone Call: RAMIROE: 11 Strata:3 Call Date: 09/12/21 Discharge Date: 09/11/21 Time of Call:1356 Duration:<1 min Admitting Dx:FTT ANISA MACIAS attempted to complete follow up phone call after recent hospitalization, no answer and no answering machine to leave a message.
[2021-09-12 14:05] LABS: Pathologist Review Reviewed
[2021-09-13 14:01] LABS: Carcinoembryonic Antigen 2.3 ng/mL (0.0-4.7)
--- NOTE | 2022-07-06 06:19 | OP.COLON_ITS ---
Patient Name: Cy Whitlock Procedure Date: 09/10/2021 8:28 AM Date of : 1950 Age: 71 Procedure: Colonoscopy Indications: Acute post hemorrhagic anemia, Iron deficiency anemia Providers: Fabio Armas DO Medicines: See the Anesthesia note for documentation of the administered medications Patient Profile: This is a 71 year old male. Refer to note in patient chart for documentation of history and physical. Patient has symptoms. The symptoms first began 2017. He is status post EGD (normal) three years ago. He is status post colonoscopy for diverticulitis and colonoscopy for polyp removal five years ago. Last Colonoscopy: 5 years ago. Complications: No immediate complications. Procedure: Pre-Anesthesia Assessment: - Prior to the procedure, a History and Physical was performed, and patient medications and allergies were reviewed. The patient is competent. The risks and benefits of the procedure and the sedation options and risks were discussed with the patient. All questions were answered and informed consent was obtained. Patient identification and proposed procedure were verified by the physician in the pre-procedure area. Mental Status Examination: alert and oriented. Airway Examination: normal oropharyngeal airway and neck mobility. Respiratory Examination: clear to auscultation. CV Examination: normal. Prophylactic Antibiotics: The patient does not require prophylactic antibiotics. Prior Anticoagulants: The patient has taken no previous anticoagulant or antiplatelet agents. ASA Grade Assessment: II - A patient with mild systemic disease. After reviewing the risks and benefits, the patient was deemed in satisfactory condition to undergo the procedure. The anesthesia plan was to use moderate sedation / analgesia (conscious sedation). Immediately prior to administration of medications, the patient was re-assessed for adequacy to receive sedatives. The heart rate, respiratory rate, oxygen saturations, blood pressure, adequacy of pulmonary ventilation, and response to care were monitored throughout the procedure. The physical status of the patient was re-assessed after the procedure. After I obtained informed consent, the scope was passed under direct vision. Throughout the procedure, the patient's blood pressure, pulse, and oxygen saturations were monitored continuously. The Colonoscope was introduced through the anus and advanced to. The Duodenoscope was introduced through the anus and advanced to the cecum, identified by appendiceal orifice and ileocecal valve. The colonoscopy was performed without difficulty. The patient tolerated the procedure well. The quality of the bowel preparation was poor. Moderate Sedation: Moderate (conscious) sedation was administered by the endoscopy nurse and supervised by the endoscopist. The patient's oxygen saturation, heart rate, blood pressure and response to care were monitored. Total physician intraservice time was 15 minutes. Scope In: 8:32:04 AM Scope Withdrawal Time 0 hours 7 minutes 41 seconds Scope Out: 8:55:21 AM Total Procedure Duration Time 0 hours 23 minutes 17 seconds Findings: Hemorrhoids were found on perianal exam. An infiltrative partially obstructing large mass was found in the recto-sigmoid colon. The mass was partially circumferential (involving one-half of the lumen circumference). The mass measured three cm in length. In addition, its diameter measured twenty-three mm. No bleeding was present. This was biopsied with a cold forceps and a hot snare for histology. Verification of patient identification for the specimen was done. Estimated blood loss was minimal. A 5 mm polyp was found in the hepatic flexure. The polyp was sessile. The polyp was removed with a jumbo cold forceps. The polyp was removed with a hot snare. Resection and retrieval were complete. Verification of patient identification for the specimen was done. Estimated blood loss was minimal. Multiple small and large-mouthed diverticula were found in the sigmoid colon and descending colon. There was no evidence of diverticular bleeding. Impression: - Preparation of the colon was poor. - Hemorrhoids found on perianal exam. - Malignant partially obstructing tumor in the recto-sigmoid colon. Biopsied. - One 5 mm polyp at the hepatic flexure, removed with a jumbo cold forceps and removed with a hot snare. Resected and retrieved. - Moderate diverticulosis in the sigmoid colon and in the descending colon. There was no evidence of diverticular bleeding. Recommendation: - Return patient to [facility] for ongoing care. - Resume previous diet. - Continue present medications. - Await pathology results. - Refer to an oncologist in 1 day. - Repeat colonoscopy in 1 month for surveillance based on pathology results. Procedure Code(s): --- Professional --- 19109, Colonoscopy, flexible; with removal of tumor(s), polyp(s), or other lesion(s) by snare technique G0500, Moderate sedation services provided by the same physician or other qualified health rn transitional care performing a gastrointestinal endoscopic service that sedation supports, requiring the presence of an independent trained observer to assist in the monitoring of the patient's level of consciousness and physiological status; initial 15 minutes of intra-service time; patient age 5 years or older (additional time may be reported with 38421, as appropriate) CPT copyright 2017 [employer] [employer]. All rights reserved. The codes documented in this report are preliminary and upon medical records coder review may be revised to meet current compliance requirements. Fabio Armas DO 09/11/2021 8:25:53 AM This report has been signed electronically. Number of Addenda: 1 Note Initiated On: 09/10/2021 8:28 AM Addendum Number: 1 Addendum Date: 07/06/2022 6:15:27 AM MAC was used instead of moderate sedation for this patient. Fabio Armas DO 07/06/2022 6:15:40 AM This report has been signed electronically.
--- NOTE | 2022-07-06 06:19 | OP.EGD_ITS ---
Patient Name: Cy Whitlock Procedure Date: 09/10/2021 7:36 AM Date of : 1950 Age: 71 Procedure: Upper GI endoscopy Indications: Hematochezia Providers: Fabio Armas DO Medicines: General Anesthesia Patient Profile: This is a 71 year old male. Refer to note in patient chart for documentation of history and physical. Patient has symptoms. The symptoms first began 2017. He is status post EGD (normal) three years ago. Complications: No immediate complications. Procedure: Pre-Anesthesia Assessment: - Prior to the procedure, a History and Physical was performed, and patient medications and allergies were reviewed. The patient is competent. The risks and benefits of the procedure and the sedation options and risks were discussed with the patient. All questions were answered and informed consent was obtained. Patient identification and proposed procedure were verified by the physician in the pre-procedure area. Mental Status Examination: alert and oriented. Airway Examination: normal oropharyngeal airway and neck mobility. Respiratory Examination: clear to auscultation. CV Examination: normal. Prophylactic Antibiotics: The patient does not require prophylactic antibiotics. Prior Anticoagulants: The patient has taken no previous anticoagulant or antiplatelet agents. ASA Grade Assessment: II - A patient with mild systemic disease. After reviewing the risks and benefits, the patient was deemed in satisfactory condition to undergo the procedure. The anesthesia plan was to use moderate sedation / analgesia (conscious sedation). Immediately prior to administration of medications, the patient was re-assessed for adequacy to receive sedatives. The heart rate, respiratory rate, oxygen saturations, blood pressure, adequacy of pulmonary ventilation, and response to care were monitored throughout the procedure. The physical status of the patient was re-assessed after the procedure. After obtaining informed consent, the endoscope was passed under direct vision. Throughout the procedure, the patient's blood pressure, pulse, and oxygen saturations were monitored continuously. The Colonoscope was introduced through the mouth, and advanced to the fourth part of duodenum. The upper GI endoscopy was accomplished without difficulty. The patient tolerated the procedure well. Moderate Sedation: Moderate (conscious) sedation was administered by the endoscopy nurse and supervised by the endoscopist. The patient's oxygen saturation, heart rate, blood pressure and response to care were monitored. Total physician intraservice time was 15 minutes. Scope In: 8:18:25 AM Scope Out: 8:27:05 AM Total Procedure Duration Time 0 hours 8 minutes 40 seconds Findings: LA Grade B (one or more mucosal breaks greater than 5 mm, not extending between the tops of two mucosal folds) esophagitis with no bleeding was found 34 to 35 cm from the incisors. Biopsies were taken with a cold forceps for histology. Verification of patient identification for the specimen was done. Estimated blood loss was minimal. The entire examined stomach was normal. The cardia and gastric fundus were normal on retroflexion. A 5 mm non-bleeding diverticulum was found in the second portion of the duodenum. Impression: - LA Grade A reflux esophagitis. Biopsied. - Normal stomach. - Non-bleeding duodenal diverticulum. Recommendation: - Return patient to hospital [facility] for ongoing care. - Resume regular diet. - Continue present medications. - Await pathology results. - Return to my office in 2 weeks. Procedure Code(s): --- Professional --- 00652, Esophagogastroduodenoscopy, flexible, transoral; with biopsy, single or multiple G0500, Moderate sedation services provided by the same physician or other qualified health primary care coordinator performing a gastrointestinal endoscopic service that sedation supports, requiring the presence of an independent trained observer to assist in the monitoring of the patient's level of consciousness and physiological status; initial 15 minutes of intra-service time; patient age 5 years or older (additional time may be reported with 73688, as appropriate) Diagnosis Code(s): --- Professional --- K21.0, Gastro-esophageal reflux disease with esophagitis K92.1, Melena (includes Hematochezia) K57.10, Diverticulosis of small intestine without perforation or abscess without bleeding CPT copyright 2017 [employer]. All rights reserved. The codes documented in this report are preliminary and upon insurance coder review may be revised to meet current compliance requirements. Fabio Armas DO 09/10/2021 9:06:53 AM This report has been signed electronically. Number of Addenda: 1 Note Initiated On: 09/10/2021 7:36 AM Addendum Number: 1 Addendum Date: 07/06/2022 6:15:10 AM MAC was used instead of moderate sedation for this patient. Fabio Armas DO 07/06/2022 6:15:16 AM This report has been signed electronically.
== END 2021-09-11 19:00 | disposition home or self-care (01) | DRG 546 ==
LOC: ED 09:35 → MS3 09:51
PROVIDERS: Internal Medicine Gastroenterology; Admitting Provider Internal Medicine; Emergency Provider Emergency Medicine; PCP Family Medicine; Visit Provider Internal Medicine
PROC: 0DJD8ZZ Inspection of Lower Intestinal Tract, Via Natural or Artificial Opening Endoscopic (ICD-10-PCS; CPT 45378; principal; 2021-09-10 08:00)
DX: M35.3 Polymyalgia rheumatica (principal); C18.7 Malignant neoplasm of sigmoid colon; E44.0 Moderate protein-calorie malnutrition; D64.9 Anemia, unspecified; I48.0 Paroxysmal atrial fibrillation; I25.10 Atherosclerotic heart disease of native coronary artery without angina pectoris; E11.9 Type 2 diabetes mellitus without complications; I73.9 Peripheral vascular disease, unspecified; K21.00 Gastro-esophageal reflux disease with esophagitis, without bleeding; K57.10 Diverticulosis of small intestine without perforation or abscess without bleeding; I10 Essential (primary) hypertension; J44.9 Chronic obstructive pulmonary disease, unspecified; E78.5 Hyperlipidemia, unspecified; D69.6 Thrombocytopenia, unspecified; I35.1 Nonrheumatic aortic (valve) insufficiency; I36.1 Nonrheumatic tricuspid (valve) insufficiency; M81.0 Age-related osteoporosis without current pathological fracture; Z95.5 Presence of coronary angioplasty implant and graft; F40.240 Claustrophobia; Z91.041 Radiographic dye allergy status; E78.00 Pure hypercholesterolemia, unspecified; G25.81 Restless legs syndrome; M47.9 Spondylosis, unspecified; G47.30 Sleep apnea, unspecified; Z79.02 Long term (current) use of antithrombotics/antiplatelets; Z79.82 Long term (current) use of aspirin; Z79.84 Long term (current) use of oral hypoglycemic drugs; Z82.49 Family history of ischemic heart disease and other diseases of the circulatory system; Z87.891 Personal history of nicotine dependence; Z88.0 Allergy status to penicillin; Z88.1 Allergy status to other antibiotic agents; Z88.2 Allergy status to sulfonamides; Z88.6 Allergy status to analgesic agent; Z88.7 Allergy status to serum and vaccine; Z91.040 Latex allergy status
CPT/HCPCS: 36415; 70450; 71045; 71260; 72127; 72130; 72133; 74177; 80048; 81001; 82378; 82550; 82962; 83605; 83735; 84100; 84443; 85025; 85652; 86038; 86140; 86225; 86235; 87040; 87086; 87426; 87635; 88305; 88313; 88341; 88342; 93005; 97110; 97162; 97166; 97530; 97802; 99251; 99285; J7030; Q9967; U0005; A4216; G0463; J2405; U0003

== ENCOUNTER 2022-03-27 12:53 | Inpatient (IN) | payer OTHER, MEDICARE, SELFPAY ==
[2022-03-27] VITALS (7 sets, daily range): BP systolic 133–176; BP diastolic 59–81; PULSE 62–66; RESP 15–18; TEMP 36.7–37.3; O2SAT 95–97; BMI 30.7; BMI 29.5
--- NOTE | 2022-03-27 13:30 | EKG12_ITS ---
Test Reason : Blood Pressure : / mmHG Vent. Rate : 068 BPM Atrial Rate : 068 BPM P-R Int : 164 ms QRS Dur : 082 ms QT Int : 368 ms P-R-T Axes : 062 012 027 degrees QTc Int : 391 ms Normal sinus rhythm Nonspecific ST abnormality Abnormal ECG Confirmed by MARSHALL GUERRERO, KELLY ([id number]), telegraph editor DANNA MILAN ([id number]) on 03/28/2022 1:24:07 PM Referred By: VISHAL Confirmed By:KELLY OLIVARES MD
--- NOTE | 2022-03-27 13:31 | EX.ED.DYSGE1 ---
HPI History of Present Illness Chief Complaint: General Illness Informant: patient Narrative Narrative: 72-year-old male presenting to the emergency department with weakness. Patient states that he feels globally weak to the point where he cannot get out of bed. States he has not really been eating well but has been trying to drink fluids. Last night he had urinary incontinence which is new. He notes chronic diarrhea for 6 months plus. He denies any fevers. He feels short of breath with cough with sputum production. No reported fevers at home. He states that he has been in and out of the hospital multiple times over the past 12 months. He states that he was told he has a cancer but does not know what type. He has a history of A. fib diabetes peripheral vascular disease. In August of last year, the patient was in the hospital. 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 He states that nobody told him what was going on but he got upset when they were scheduling additional colonoscopies. He was supposed to follow-up with surgery for possible resection but he did not. He notes that he has been losing weight. No night sweats. PFSH [facility] Medical History Agent orange exposure Anemia Atherosclerosis of coronary artery of [place] heart without angina pectoris Carotid stenosis Chronic fatigue disorder COPD (chronic obstructive pulmonary disease) Esophagitis Hyperlipidemia Hypertension Non-rheumatic tricuspid valve insufficiency Nonrheumatic aortic valve insufficiency Osteoporosis Peripheral vascular occlusive disease Restless legs Sleep apnea Thrombocytopenia Tubular adenoma polyp of rectum Type 2 diabetes mellitus without complications Home Medications albuterol sulfate [Ventolin HFA] 2 puff INHALATION PRN PRN 08/23/14 [History Last Taken 02/18/15] clopidogrel 75 mg PO DAILY 08/23/14 [History Last Taken 09/07/21] hydrocodone-acetaminophen 1 tab PO DAILY PRN 08/23/14 [History Last Taken 08/22/17] pravastatin 80 mg PO QHS 08/23/14 [History Last Taken 09/07/21] metoprolol tartrate 50 mg PO BID 02/17/15 [History Last Taken 09/07/21] aspirin 81 mg PO DAILY 09/08/21 [History Last Taken 09/07/21] lisinopril 10 mg PO BID 09/08/21 [History Last Taken 09/07/21] metformin 1,000 mg PO BID 30 Days #60 tab 09/11/21 [Rx Last Taken Unknown] Allergy/AdvReac Type Severity Reaction Status Date / Time acetaminophen Allergy Unknown Unknown Verified 03/27/22 12:59 [From Darvocet-N] amitriptyline HCl Allergy Unknown Unknown Verified 03/27/22 12:59 [From Elavil] atorvastatin calcium Allergy Unknown Unknown Verified 03/27/22 12:59 [From Lipitor] azithromycin [From Zithromax] Allergy Unknown Unknown Verified 03/27/22 12:59 cefaclor [Cefaclor] Allergy Unknown Unknown Verified 03/27/22 12:59 ciprofloxacin [From Cipro] Allergy Unknown Unknown Verified 03/27/22 12:59 ciprofloxacin HCl Allergy Unknown Unknown Verified 03/27/22 12:59 [From Cipro] hydroxyzine HCl [From Atarax] Allergy Unknown Unknown Verified 03/27/22 12:59 influenza virus vaccine, Allergy Unknown Unknown Verified 03/27/22 12:59 specific [Influenza Virus Vacc,Specific] iodine Allergy Unknown Unknown Verified 03/27/22 12:59 latex Allergy Unknown Unknown Verified 03/27/22 12:59 levofloxacin [From Levaquin] Allergy Unknown Unknown Verified 03/27/22 12:59 lidocaine Allergy Unknown Unknown Verified 03/27/22 12:59 lovastatin Allergy Unknown Unknown Verified 03/27/22 12:59 niacin Allergy Unknown Unknown Verified 03/27/22 12:59 Penicillins Allergy Unknown Unknown Verified 03/27/22 12:59 pneumococcal vaccine Allergy Unknown Unknown Verified 03/27/22 12:59 [Pneumococcal Vaccine] propoxyphene napsylate Allergy Unknown Unknown Verified 03/27/22 12:59 [From Darvocet-N] quinapril HCl [From Accupril] Allergy Unknown Unknown Verified 03/27/22 12:59 red dye Allergy Unknown Unknown Verified 03/27/22 12:59 rosuvastatin calcium Allergy Unknown Unknown Verified 03/27/22 12:59 [From Crestor] simvastatin Allergy Unknown Unknown Verified 03/27/22 12:59 Sulfa (Sulfonamide Allergy Unknown Unknown Verified 03/27/22 12:59 Antibiotics) Tetanus Vaccines and Toxoid Allergy Unknown Unknown Verified 03/27/22 12:59 [Tetanus Vaccines & Toxoid] tetracycline [Tetracycline] Allergy Unknown Unknown Verified 03/27/22 12:59 yellow dye Allergy Unknown Unknown Verified 03/27/22 12:59 fentanyl Allergy Unknown Verified 03/27/22 12:59 hydrochlorothiazide Allergy Unknown Verified 03/27/22 12:59 CREATINE MONOHYDRATE Allergy Unknown Unknown Uncoded 03/27/22 12:59 Family History Father CAD (coronary artery disease) Mother CAD (coronary artery disease) Brother CAD (coronary artery disease) Surgical History History of coronary artery stent placement (~01/05/03) History of right and left heart catheterization (~02/18/15) Social History (Updated 03/27/22 @ 13:[address] Ppo Horne DO) current gender identity: male Smoking Status: Former smoker ROS ROS ED ROS Narrative Global fatigue Constitutional Constitutional ED: Denies chills, fever(s) or weight loss Eyes Eyes: Denies change in vision or diplopia ENT ENT ED: Denies ear pain, rhinorrhea or sore throat Cardiovascular Cardiovascular: Denies chest pain, orthopnea, palpitations or racing heartbeat Respiratory/Chest Respiratory/Chest: Reports cough, dyspnea and sputum; Denies orthopnea Gastrointestinal Gastrointestinal: Reports diarrhea; Denies abdominal pain, nausea or vomiting Genitourinary Genitourinary ED: Denies dysuria, hematuria or urinary frequency Musculoskeletal Musculoskeletal: Reports myalgias; Denies arthralgias Integumentary Denies abscess or rash Neurologic Neurologic: Denies headache(s) or weakness Psychiatric Psychiatric: Denies anxiety, depression, suicidal ideation or suicidal thoughts Endocrine Endocrinology: Denies polydipsia, polyphagia or polyuria Allergic/Immunologic Allergic/Immunologic ED: Denies mouth swelling, tongue swelling or urticaria EXAM Physical Exam Const Vital Signs: 03/27/22 12:53 03/27/22 12:57 Temperature 99.1 F Temperature Source Oral Pulse Rate 65 Respiratory Rate 16 Respiratory Effort Normal Non-Labored Respiratory Pattern Normal Blood Pressure 133/63 H Blood Pressure Mean 86 Pulse Ox 95 Oxygen Delivery Method Room Air Positive well nourished and well developed General Appearance ED: well developed and pallor HEENT Reports normocephalic, head/scalp atraumatic, TM's clear and moist mucous membranes Negative for trauma Tympanic Membrane ED: Yes TM's clear Eyes PERRL and EOMs intact bilaterally Neck no lymphadenopathy, supple and no JVD Resp normal respiratory effort and clear to auscultation bilaterally Cardio regular rate, regular rhythm and no murmurs GI normal to inspection, nondistended, normoactive bowel sounds and non-tender Palpation: soft Back/Spine no CVA tenderness and normal ROM Extremity normal to inspection General Extremety ED: Negative for edema General Extremity: Negative for edema Neuro oriented x3 and CN's II-XII intact bilaterally Sensorium / Orientation: alert Motor Exam: strength 5/5 throughout Psych mental status grossly normal Mood & Affect: Negative for depressed or tearful Skin no rashes or lesions noted and no wounds General Skin Exam: pallor MDM MDM MDM Narrative Medical decision making narrative: Patient has a leukocytosis of 16.6. Hemoglobin is 12.3. Normal coags. Lactic acid is normal. Creatinine is elevated off baseline and is 1.56 with a BUN of 27. Lipase 40. My interpretation of the chest x-ray is no acute process. Urinalysis shows no infection. COVID and influenza testing is negative. Stool studies were ordered but the patient has not yet produced a specimen to test. Lab Data Attestation: I reviewed the patient's lab results. Labs: Laboratory Results - last 24 hr 03/27/22 03/27/22 03/27/22 13:35 13:35 13:35 WBC 16.6 H RBC 4.12 L Hgb 12.3 L Hct 38.0 L MCV 92.2 MCH 29.9 MCHC 32.4 RDW Std Deviation 45.2 H RDW Coeff of Tracie 13.5 Plt Count 197 MPV 12.0 Immature Gran % (Auto) 0.700 Neut % (Auto) 76.4 H Lymph % (Auto) 10.0 L [place] % (Auto) 9.4 Eos % (Auto) 3.3 Baso % (Auto) 0.2 Absolute Neuts (auto) 12.7 H Absolute Lymphs (auto) 1.66 Nucleated RBC % 0 Diff Path Review May foll PT 13.6 INR 1.1 APTT 30.9 Sodium 144 Potassium 4.1 Chloride 109 H Carbon Dioxide 26.0 Anion Gap 9 BUN 27 H Creatinine 1.56 H Estim Creat Clear Calc 42.90 Est GFR (MDRD) Af Amer 56 L Est GFR (MDRD) Non-Af 46 L BUN/Creatinine Ratio 17.3 Glucose 125 H Lactic Acid Calcium 11.5 H Total Bilirubin 0.60 AST 14 L ALT 14 L Alkaline Phosphatase 50 Troponin I High Sens 39 Total Protein 7.1 Albumin 3.4 Globulin 3.7 Albumin/Globulin Ratio 0.9 Lipase 40 L Urine Color Urine Clarity Urine pH Ur Specific [place] Urine Protein Urine Glucose (UA) Urine Ketones Urine Occult Blood Urine Nitrite Urine Bilirubin Urine Urobilinogen Ur Leukocyte Esterase Urine RBC Urine WBC Ur Squamous Epith Cells Urine Bacteria Hyaline Casts Urine Mucus 03/27/22 03/27/22 13:35 14:10 WBC RBC Hgb Hct MCV MCH MCHC RDW Std Deviation RDW Coeff of Tracie Plt Count MPV Immature Gran % (Auto) Neut % (Auto) Lymph % (Auto) Wake % (Auto) Eos % (Auto) Baso % (Auto) Absolute Neuts (auto) Absolute Lymphs (auto) Nucleated RBC % Diff Path Review PT INR APTT Sodium Potassium Chloride Carbon Dioxide Anion Gap BUN Creatinine Estim Creat Clear Calc Est GFR (MDRD) Af Amer Est GFR (MDRD) Non-Af BUN/Creatinine Ratio Glucose Lactic Acid 1.9 Calcium Total Bilirubin AST ALT Alkaline Phosphatase Troponin I High Sens Total Protein Albumin Globulin Albumin/Globulin Ratio Lipase Urine Color Yellow Urine Clarity Clear Urine pH 5.0 Ur Specific [place] 1.030 Urine Protein 15 H Urine Glucose (UA) Normal Urine Ketones Negative Urine Occult Blood Negative Urine Nitrite Negative Urine Bilirubin Negative Urine Urobilinogen Normal Ur Leukocyte Esterase Negative Urine RBC 0 SEEN Urine WBC 0 SEEN Ur Squamous Epith Cells 0-5 SEEN Urine Bacteria 0 SEEN Hyaline Casts 0-5 SEEN Urine Mucus 0 SEEN Radiography Diagnostic Testing: Clinical Impression(s) from Imaging Studies Chest X-Ray 03/27/22 13:50 IMPRESSION: Nonacute portable x-ray examination of the chest. Electronically Signed: Ji Harvey MD ([place]) at 14:19 EDT Reading Location ID and State: / [place] , Service support , EKG Initial EKG: Attestation: I personally reviewed and interpreted this EKG as follows: Comments: Normal sinus rhythm with a ventricular rate of 68 bpm. Discharge Plan Dx/Rx/DC Orders Clinical Impression: Adult failure to thrive, Acute dehydration, Chronic diarrhea, Leukocytosis, Neoplasm of sigmoid colon Disposition Disposition: Acute Care Hospital [facility]
[2022-03-27 13:50] LABS: Absolute Lymphocyte Count 1.66 X10^3/uL (0.83-4.51); Absolute Neutrophil Count 12.7 X10^3/uL (2.0-7.7); Basophil# 0.04 X10^3/uL; Basophil% 0.2 % (0-1); Eosinophil# 0.55 X10^3/uL; Eosinophils% 3.3 % (0-5); Hemoglobin 12.3 g/dL (13.0-16.5); Lymphocyte # 1.66 X10^3/ul (0.83-4.51); Mean Corp Hgb Conc 32.4 g/dL (32-36); Mean Corpuscular Hgb 29.9 pg (27.0-32.0); Mean Corpuscular Volume 92.2 fL (80-94); Monocyte# 1.56 X10^3/uL; Monocyte% 9.4 % (0-10); NRBC Flagged by Analyzer 0 % (0-5); Neutrophil # 12.69 X10^3/uL (2.7-7.7); Neutrophil % 76.4 % (47-70); POSITIVE DIFFERENTIAL YES; Platelet Count 197 K/mm3 (150-450); RBC Distribution Width CV 13.5 % (11.6-14.6); RBC Distribution Width SD 45.2 fl (35.1-43.9); Red Blood Count 4.12 M/mm3 (4.6-6.2); White Blood Count 16.6 K/mm3 (4.4-11.0)
--- NOTE | 2022-03-27 13:50 | RAD_ITS ---
STUDY: X-RAY CHEST REASON FOR EXAM: Male, 72 years old. cough TECHNIQUE: AP COMPARISON: 09/08/2021 FINDINGS: EKG leads project over the chest. The lungs are clear and expanded. There is no demonstrated pleural abnormality. Normal size heart. Normal mediastinum and angel. Normal visualized pulmonary arteries. Normal visualized aortic arch and descending thoracic aorta. Normal visualized thoracic spine. Normal visualized ribs, clavicles, and shoulders. There is no demonstrated abnormality of the visualized soft tissue structures of the upper abdomen. RAD/Chest 1 View (Portable) IMPRESSION: Nonacute portable x-ray examination of the chest. Electronically Signed: Ji Harvey MD ([place]) at 14:19 EDT ,
[2022-03-27 13:53] LABS: Differential Indicated SCAN CRITERIA MET
[2022-03-27 13:58] LABS: International Normalized Ratio 1.1; Prothrombin Time (Protime)PT. 13.6 SECONDS (11.7-14.9)
[2022-03-27 13:59] LABS: Partial Thromboplast Time 30.9 Seconds (24.1-36.2)
[2022-03-27 14:09] LABS: ALB/GLOB Ratio 0.9 RATIO (0.9-2.4); AST(SGOT) 14 U/L (15-37); Alanine Aminotransfer ALT/SGPT 14 U/L (16-61); Albumin, Serum 3.4 g/dL (3.2-5.0); Alkaline Phosphatase 50 U/L (45-117); Anion Gap 9 (5-15); BUN 27 mg/dL (7-18); BUN/Creat Ratio 17.3 RATIO (10-20); Calcium,Total 11.5 mg/dL (8.5-10.1); Chloride 109 mmol/L (98-107); Creatinine, Serum 1.56 mg/dL (0.70-1.30); EST Glomerular Filtration Rate 46 mL/min (>60); Est Glom Filt Rate - Afr Amer 56 mL/min (>60); Globulin 3.7 g/dL (2.2-4.2); Glucose 125 mg/dL (74-106); Lipase 40 U/L (73-393); Potassium 4.1 mmol/L (3.5-5.1); Protein, Total 7.1 g/dL (6.4-8.2); Sodium Level 144 mmol/L (136-145); Troponin-I HS 39 pg/mL (3.0-78.0)
[2022-03-27 14:10] LABS: Lactic Acid 1.9 mmol/L (0.4-1.9)
[2022-03-27] MEDS: 0.9% Normal Saline 1,000 ML 1000 ML IV (14:15)
[2022-03-27 14:19] LABS: Bacteria 0 SEEN /hpf (None Seen); Mucous, Urine 0 SEEN /hpf (<or=2+); Red Blood Cells-Urine 0 SEEN /hpf (0-5); White Blood Cells 0 SEEN /hpf (0-5)
[2022-03-27 14:22] LABS: Color, Urine Yellow (Yellow); Glucose, Dipstick Normal (Normal); Ketone-Dipstick Negative (Negative); Leukocyte Esterase-Dipstick Negative /ul (Negative); Nitrite-Dipstick Negative (Negative); Occult Blood-Urine Negative /ul (Negative); Protein-Dipstick 15 mg/dl (Negative); Urine Bilirubin Dipstick Negative (Negative); Urine Clarity Clear (Clear); Urine Urobilinogen Normal (Normal)
[2022-03-27 14:28] LABS: Hyaline Cast 0-5 SEEN /lpf (0-5); Squamous Epithelial Cells - UA 0-5 SEEN /hpf (0-5)
--- NOTE | 2022-03-27 15:41 | PCM.HP.STD ---
Documented by User: Alize Davis NP, DEALER COMPLIANCE REPRESENTATIVE-C 03/27/22 16:04 HPI - General HPI Narrative GIANA TANG, is a 72 M who presents to the emergency room due to weakness and diarrhea. Patient states his weakness has been ongoing for some time however over the past week has had difficulty completing basic tasks. He also states he fell out of bed a couple days ago. He denies injury during fall. Patient states he has had diarrhea for 6 months, intermittent since that time. He denies abdominal pain. Patient was informed during admission September 2021 of a partially obstructing large mass in the rectosigmoid colon. General surgery, GI and oncology were consulted at that time. Patient did not follow-up. He states he called his primary care provider a week ago however canceled his appointment as he was not emotionally ready. He reports intermittent fever, chills and night sweats. States he lost 220 pounds over the past month. He denies nausea, vomiting. States his appetite and oral intake is normal. Per records, since September 2021 patient has lost approximately 20 pounds. He has a past medical history of polymyalgia rheumatica, paroxysmal atrial fibrillation, CAD with history of stent placement, type 2 diabetes mellitus, peripheral vascular disease, hypertension and known colon mass. [facility] Medical History Agent orange exposure Anemia Atherosclerosis of coronary artery of [place] heart without angina pectoris Carotid stenosis Chronic fatigue disorder COPD (chronic obstructive pulmonary disease) Esophagitis Hyperlipidemia Hypertension Non-rheumatic tricuspid valve insufficiency Nonrheumatic aortic valve insufficiency Osteoporosis Peripheral vascular occlusive disease Restless legs Sleep apnea Thrombocytopenia Tubular adenoma polyp of rectum Type 2 diabetes mellitus without complications Home Medications albuterol sulfate [Ventolin HFA] 2 puff INHALATION PRN PRN 08/23/14 [History Last Taken 03/24/22] clopidogrel 75 mg PO DAILY 08/23/14 [History Last Taken 03/25/22] hydrocodone-acetaminophen 1 tab PO DAILY PRN 08/23/14 [History Last Taken 03/25/22] pravastatin 80 mg PO QHS 08/23/14 [History Last Taken 03/25/22] metoprolol tartrate 50 mg PO BID 02/17/15 [History Last Taken 03/25/22] aspirin 81 mg PO DAILY 09/08/21 [History Last Taken 03/25/22] lisinopril 10 mg PO BID 09/08/21 [History Last Taken 03/25/22] metformin 1,000 mg PO BID 30 Days #60 tab 09/11/21 [Rx Last Taken 03/25/22] Allergy/AdvReac Type Severity Reaction Status Date / Time acetaminophen Allergy Unknown Unknown Verified 03/27/22 12:59 [From Darvocet-N] amitriptyline HCl Allergy Unknown Unknown Verified 03/27/22 12:59 [From Elavil] atorvastatin calcium Allergy Unknown Unknown Verified 03/27/22 12:59 [From Lipitor] azithromycin [From Zithromax] Allergy Unknown Unknown Verified 03/27/22 12:59 cefaclor [Cefaclor] Allergy Unknown Unknown Verified 03/27/22 12:59 ciprofloxacin [From Cipro] Allergy Unknown Unknown Verified 03/27/22 12:59 ciprofloxacin HCl Allergy Unknown Unknown Verified 03/27/22 12:59 [From Cipro] hydroxyzine HCl [From Atarax] Allergy Unknown Unknown Verified 03/27/22 12:59 influenza virus vaccine, Allergy Unknown Unknown Verified 03/27/22 12:59 specific [Influenza Virus Vacc,Specific] iodine Allergy Unknown Unknown Verified 03/27/22 12:59 latex Allergy Unknown Unknown Verified 03/27/22 12:59 levofloxacin [From Levaquin] Allergy Unknown Unknown Verified 03/27/22 12:59 lidocaine Allergy Unknown Unknown Verified 03/27/22 12:59 lovastatin Allergy Unknown Unknown Verified 03/27/22 12:59 niacin Allergy Unknown Unknown Verified 03/27/22 12:59 Penicillins Allergy Unknown Unknown Verified 03/27/22 12:59 pneumococcal vaccine Allergy Unknown Unknown Verified 03/27/22 12:59 [Pneumococcal Vaccine] propoxyphene napsylate Allergy Unknown Unknown Verified 03/27/22 12:59 [From Darvocet-N] quinapril HCl [From Accupril] Allergy Unknown Unknown Verified 03/27/22 12:59 red dye Allergy Unknown Unknown Verified 03/27/22 12:59 rosuvastatin calcium Allergy Unknown Unknown Verified 03/27/22 12:59 [From Crestor] simvastatin Allergy Unknown Unknown Verified 03/27/22 12:59 Sulfa (Sulfonamide Allergy Unknown Unknown Verified 03/27/22 12:59 Antibiotics) Tetanus Vaccines and Toxoid Allergy Unknown Unknown Verified 03/27/22 12:59 [Tetanus Vaccines & Toxoid] tetracycline [Tetracycline] Allergy Unknown Unknown Verified 03/27/22 12:59 yellow dye Allergy Unknown Unknown Verified 03/27/22 12:59 fentanyl Allergy Unknown Verified 03/27/22 12:59 hydrochlorothiazide Allergy Unknown Verified 03/27/22 12:59 CREATINE MONOHYDRATE Allergy Unknown Unknown Uncoded 03/27/22 12:59 Family History (Updated 03/27/22 @ 15:47 by Alize Davis NP, DEALER COMPLIANCE REPRESENTATIVE-C) Father CAD (coronary artery disease) Mother CAD (coronary artery disease) Cancer Brother CAD (coronary artery disease) Surgical History History of coronary artery stent placement (~01/05/03) History of right and left heart catheterization (~02/18/15) Social History (Updated 03/27/22 @ 15:48 by Alize Davis NP, DEALER COMPLIANCE REPRESENTATIVE-C) current gender identity: male Smoking Status: Former smoker quit date: 11/04/07 alcohol intake: never substance use type: does not use ROS Constitutional Constitutional: Reports change in weight, chills, fatigue, fever(s), malaise, night sweats and weakness Cardiovascular Cardiovascular: Denies chest pain, edema, lightheadedness, palpitations or syncope Respiratory/Chest Respiratory/Chest: Denies cough, dyspnea, productive cough, shortness of breath at rest, shortness of breath with exertion or wheezing Gastrointestinal Gastrointestinal: Reports diarrhea; Denies abdominal pain, constipation, nausea or vomiting Genitourinary Genitourinary: Denies burning urination, difficulty urinating, dysuria, hematuria, urinary frequency, urinary incontinence or urinary urgency Musculoskeletal Musculoskeletal: Denies back pain, joint pain or muscle weakness Integumentary Integumentary: Denies erythema, lesions, rash or wounds Neurologic Neurologic: Denies abnormal speech, confusion, dizziness, focal weakness, numbness, paresthesias, seizure-like activity or syncope Psychiatric Psychiatric: Denies anxiety or depression Hematologic/Lymphatic Hematologic/Lymphatic: Denies anemia, easy bleeding or easy bruising Allergic/Immunologic Allergic/Immunologic: Denies hives or asthma Vital Signs Vital Signs Vital Signs: 03/27/22 12:53 03/27/22 12:57 03/27/22 15:03 Temperature 99.1 F Temperature Source Oral Pulse Rate 65 64 Respiratory Rate 16 15 Respiratory Effort Normal Non-Labored Respiratory Pattern Normal Blood Pressure 133/63 H 176/81 H Blood Pressure Mean 86 112 Pulse Ox 95 97 Oxygen Delivery Method Room Air Room Air Weight Weight: 214 lb 4.629 oz Body Mass Index (BMI) 30.7 Physical Exam Const alert and oriented x3 Orientation / Consciousness: awake, oriented to person, oriented to place and oriented to time HEENT normocephalic Mouth: dry mucous membranes Eyes PERRL, EOMs intact bilaterally and conjunctivae normal Neck no lymphadenopathy Resp normal respiratory effort and clear to auscultation bilaterally Cardio regular rate, regular rhythm and no murmurs Peripheral Pulses: pulses 2+ throughout GI normal to inspection, nondistended, normoactive bowel sounds and non-distended Palpation: tender other (generalized) Extremity normal to inspection Skin no rashes or lesions noted Lesions: no lesions Rashes: no rashes Trauma: no lacerations or abrasions Neuro CN's II-XII intact bilaterally, no focal motor deficits, no sensory deficits noted and deep tendon reflexes 2+ bilaterally Psych mental status grossly normal and affect normal Results Lab / Micro Data Result Diagrams: 03/27/22 13:35 03/27/22 13:35 Labs: Laboratory Results - last 24 hr 03/27/22 13:35: WBC 16.6 H, RBC 4.12 L, Hgb 12.3 L, Hct 38.0 L, MCV 92.2, MCH 29.9, MCHC 32.4, RDW Std Deviation 45.2 H, RDW Coeff of Tracie 13.5, Plt Count 197, MPV 12.0, Immature Gran % (Auto) 0.700, Neut % (Auto) 76.4 H, Lymph % (Auto) 10.0 L, [place] % (Auto) 9.4, Eos % (Auto) 3.3, Baso % (Auto) 0.2, Absolute Neuts (auto) 12.7 H, Absolute Lymphs (auto) 1.66, Nucleated RBC % 0, Diff Path Review March03/27/22 13:35: PT 13.6, INR 1.1, APTT 30.9 03/27/22 13:35: Sodium 144, Potassium 4.1, Chloride 109 H, Carbon Dioxide 26.0, Anion Gap 9, BUN 27 H, Creatinine 1.56 H, Estim Creat Clear Calc 42.90, Est GFR (MDRD) Af Amer 56 L, Est GFR (MDRD) Non-Af 46 L, BUN/Creatinine Ratio 17.3, Glucose 125 H, Calcium 11.5 H, Total Bilirubin 0.60, AST 14 L, ALT 14 L, Alkaline Phosphatase 50, Troponin I High Sens 39, Total Protein 7.1, Albumin 3.4, Globulin 3.7, Albumin/Globulin Ratio 0.9, Lipase 40 L 03/27/22 13:35: Lactic Acid 1.9 03/27/22 14:10: Urine Color Yellow, Urine Clarity Clear, Urine pH 5.0, Ur Specific [place] 1.030, Urine Protein 15 H, Urine Glucose (UA) Normal, Urine Ketones Negative, Urine Occult Blood Negative, Urine Nitrite Negative, Urine Bilirubin Negative, Urine Urobilinogen Normal, Ur Leukocyte Esterase Negative, Urine RBC 0 SEEN, Urine WBC 0 SEEN, Ur Squamous Epith Cells 0-5 SEEN, Urine Bacteria 0 SEEN, Hyaline Casts 0-5 SEEN, Urine Mucus 0 SEEN Micro: Microbiology 03/27/22 14:10 Nasal Secretion SARS-CoV-2 & FLU Antigen (Rapid) - Final Radiology Impression Chest X-Ray 03/27/22 13:50 IMPRESSION: Nonacute portable x-ray examination of the chest. Electronically Signed: Ji Harvey MD (Brooks) at 14:19 EDT Reading Location ID and State: [address] [place] [address] , Service support , Assessment & Plan Assessment/Plan (1) Acute dehydration: (2) Chronic diarrhea: (3) Adult failure to thrive: PLAN: 1. Acute kidney injury-suspect secondary to GI loss. IV fluids, trend BMP. Hold nephrotoxic regimen. 2. Diarrhea-send stool for sample. Possibly related to partially obstructing mass? 3. Colon mass-found September 2021. Colonoscopy showed an infiltrative partially obstructing mass in the rectosigmoid colon. Biopsy showed tubular adenoma. We will repeat CT scan following improvement in renal function. 4. Severe protein calorie malnutrition-as evidenced by recent 20 pound weight loss. Dietitian consult. 5. History of polymyalgia rheumatica- diagnosed 09/2021. Discharged on steroids which he has since stopped taking. 6. Paroxysmal atrial fibrillation- continue metoprolol. Not on anticoagulation due to history of GI bleed. 7. CAD with history of stent placement-on aspirin, Plavix, statin, metoprolol. 8. Type 2 diabetes mellitus-hold metformin. Accu-Cheks with sliding scale insulin. 9. Peripheral vascular disease-continue aspirin, statin. 10. Hypertension-elevated on admission. Continue metoprolol. Hold lisinopril due to acute kidney injury. As needed hydralazine. DVT prophylaxis-heparin sc CODE STATUS: Discussed in length with patient. Patient elects DNR CCA no intubation. This patient was seen by DC Massey under the supervision of Dr. Whyte. Time spent examining patient, reviewing data and subsequent management of care: 23 minutes Documented by User: Dr. Leticia Whyte MD 03/27/22 17:07 HPI - General General Date of Admission: 03/27/22 [facility] Medical History Agent orange exposure Anemia Atherosclerosis of coronary artery of [place] heart without angina pectoris Carotid stenosis Chronic fatigue disorder COPD (chronic obstructive pulmonary disease) Esophagitis Hyperlipidemia Hypertension Non-rheumatic tricuspid valve insufficiency Nonrheumatic aortic valve insufficiency Osteoporosis Peripheral vascular occlusive disease Restless legs Sleep apnea Thrombocytopenia Tubular adenoma polyp of rectum Type 2 diabetes mellitus without complications Home Medications albuterol sulfate [Ventolin HFA] 2 puff INHALATION PRN PRN 08/23/14 [History Last Taken 03/24/22] clopidogrel 75 mg PO DAILY 08/23/14 [History Last Taken 03/25/22] hydrocodone-acetaminophen 1 tab PO DAILY PRN 08/23/14 [History Last Taken 03/25/22] pravastatin 80 mg PO QHS 08/23/14 [History Last Taken 03/25/22] metoprolol tartrate 50 mg PO BID 02/17/15 [History Last Taken 03/25/22] aspirin 81 mg PO DAILY 09/08/21 [History Last Taken 03/25/22] lisinopril 10 mg PO BID 09/08/21 [History Last Taken 03/25/22] metformin 1,000 mg PO BID 30 Days #60 tab 09/11/21 [Rx Last Taken 03/25/22] Allergy/AdvReac Type Severity Reaction Status Date / Time acetaminophen Allergy Unknown Unknown Verified 03/27/22 12:59 [From Darvocet-N] amitriptyline HCl Allergy Unknown Unknown Verified 03/27/22 12:59 [From Elavil] atorvastatin calcium Allergy Unknown Unknown Verified 03/27/22 12:59 [From Lipitor] azithromycin [From Zithromax] Allergy Unknown Unknown Verified 03/27/22 12:59 cefaclor [Cefaclor] Allergy Unknown Unknown Verified 03/27/22 12:59 ciprofloxacin [From Cipro] Allergy Unknown Unknown Verified 03/27/22 12:59 ciprofloxacin HCl Allergy Unknown Unknown Verified 03/27/22 12:59 [From Cipro] hydroxyzine HCl [From Atarax] Allergy Unknown Unknown Verified 03/27/22 12:59 influenza virus vaccine, Allergy Unknown Unknown Verified 03/27/22 12:59 specific [Influenza Virus Vacc,Specific] iodine Allergy Unknown Unknown Verified 03/27/22 12:59 latex Allergy Unknown Unknown Verified 03/27/22 12:59 levofloxacin [From Levaquin] Allergy Unknown Unknown Verified 03/27/22 12:59 lidocaine Allergy Unknown Unknown Verified 03/27/22 12:59 lovastatin Allergy Unknown Unknown Verified 03/27/22 12:59 niacin Allergy Unknown Unknown Verified 03/27/22 12:59 Penicillins Allergy Unknown Unknown Verified 03/27/22 12:59 pneumococcal vaccine Allergy Unknown Unknown Verified 03/27/22 12:59 [Pneumococcal Vaccine] propoxyphene napsylate Allergy Unknown Unknown Verified 03/27/22 12:59 [From Darvocet-N] quinapril HCl [From Accupril] Allergy Unknown Unknown Verified 03/27/22 12:59 red dye Allergy Unknown Unknown Verified 03/27/22 12:59 rosuvastatin calcium Allergy Unknown Unknown Verified 03/27/22 12:59 [From Crestor] simvastatin Allergy Unknown Unknown Verified 03/27/22 12:59 Sulfa (Sulfonamide Allergy Unknown Unknown Verified 03/27/22 12:59 Antibiotics) Tetanus Vaccines and Toxoid Allergy Unknown Unknown Verified 03/27/22 12:59 [Tetanus Vaccines & Toxoid] tetracycline [Tetracycline] Allergy Unknown Unknown Verified 03/27/22 12:59 yellow dye Allergy Unknown Unknown Verified 03/27/22 12:59 fentanyl Allergy Unknown Verified 03/27/22 12:59 hydrochlorothiazide Allergy Unknown Verified 03/27/22 12:59 CREATINE MONOHYDRATE Allergy Unknown Unknown Uncoded 03/27/22 12:59 Family History (Updated 03/27/22 @ 15:47 by Alize Davis NP, DEALER COMPLIANCE REPRESENTATIVE-C) Father CAD (coronary artery disease) Mother CAD (coronary artery disease) Cancer Brother CAD (coronary artery disease) Surgical History History of coronary artery stent placement (~01/05/03) History of right and left heart catheterization (~02/18/15) Social History (Updated 03/27/22 @ 15:48 by Alize Davis NP, DEALER COMPLIANCE REPRESENTATIVE-C) current gender identity: male Smoking Status: Former smoker quit date: 11/04/07 alcohol intake: never substance use type: does not use Results Lab / Micro Data Result Diagrams: 03/27/22 13:35 03/27/22 13:35 Charges/Coding Addendum Addendum: This patient was seen in conjunction with Alize Davis NP. I have independently interviewed and examined the patient and reviewed pertinent historical, laboratory, and other data. I have reviewed her note and concur with her documentation 72-year-old male who was recently diagnosed in September 2021 with a rectosigmoid mass who comes in with generalized weakness, diarrhea and incontinence of urine. Patient stated that he has been progressively weak. He has not followed up with anyone since his discharge. He has had chronic diarrhea. He denies any fever chills or abdominal pain. He has been lying in bed, was unable to get up this morning. He had an incontinence of urine and that prompted the to call the ambulance. Patient stated that he is lost about 120 pounds in weight by review of records show that he is lost 22 pounds. He admits to night sweats and off and on loss of appetite. Vitals:, Stable except for blood pressure is elevated. Physical Exam: Gen: Comfortable, not pale, not jaundiced, CVS:HS I +II, regular, no murmurs RESP: Diminished at lung bases GI: BS present and normal, soft, nontender, no palpable organs EXT:No edema Labs: WBC count is 16.6, hemoglobin 12.2, platelet count 197, INR 1.1, CMP significant for BUN of 27, creatinine 1.57, baseline creatinine is around 1 Magnesium is 1.2, UA is unremarkable ASSESSMENT: 1. Debility, acute on chronic 2. Acute kidney injury, likely prerenal 3. Hypomagnesemia 4. Rectosigmoid mass 5. Uncontrolled hypertension 6. Suspected polymyalgia rheumatica 7. Hyperlipidemia 8. CAD status post stent 9. PAD 10. Type II DM Plan: Admit to [facility] IV fluid PT/OT to evaluate and treat Hold aspirin and Plavix for now Hold metformin Blood glucose checks with insulin sliding scale CT of the abdomen pelvis with contrast after hydration tomorrow Patient will need contrast-induced allergy. Time spent getting history and physically examining patient, collaborating history with the patient's on phone, talking to general surgery Dr. Valentino and Dr. Armas in discussing patient's management: 65 minutes Visit Charges OBSV E&M: [id number] Initial observation care L3
--- NOTE | 2022-03-27 16:02 | RAD_ITS ---
STUDY: X-RAY - ABDOMEN/PELVIS REASON FOR EXAM: Male, 72 years old. Diarrhea. Colon mass. TECHNIQUE: Two AP supine views of the abdomen and pelvis. COMPARISON: CT the abdomen and pelvis, 09/11/2021. FINDINGS: Normal visualized lung bases. There is an unremarkable bowel gas pattern. Areas seen throughout the colon. There is no evidence of mass or obstruction. There is no small bowel dilatation. There is no demonstrated free abdominal air. The visualized liver, spleen and kidneys are grossly normal in size and morphology. There are vascular calcifications in the aorta and iliac arteries. There is a stent in the proximal left SFA. Degenerative changes lumbar spine and hips. RAD/Abdomen Single View IMPRESSION: No evidence of acute intra-abdominal process. Electronically Signed: Vitaliy Crook DO at 17:26 EDT ,
[2022-03-27 16:28] LABS: Magnesium 1.2 mg/dL (1.6-2.6); Phosphorus 3.2 mg/dL (2.5-4.9)
[2022-03-27 17:30] LABS: Bedside Glucose 110 mg/dL (74-106)
[2022-03-27] MEDS: 0.9% Normal Saline 1,000 ML 100 ML IV (17:34)
[2022-03-27] MEDS: Magnesium Sulfate 4gm/100mL 4 GM/100 ML IV.SOLN. IV (17:45)
[2022-03-27] MEDS: Metoprolol Tartrate 50 MG Tablet PO (21:17)
[2022-03-27] MEDS: Pravastatin 80 MG Tablet PO (21:17)
[2022-03-27 21:26] LABS: Bedside Glucose 125 mg/dL (74-106)
[2022-03-28 02:56] VITALS: BP 141/58; PULSE 58; RESP 16; TEMP 36.7; O2SAT 95
[2022-03-28 05:18] LABS: Absolute Lymphocyte Count 1.12 X10^3/uL (0.83-4.51); Absolute Neutrophil Count 10.7 X10^3/uL (2.0-7.7); Basophil# 0.02 X10^3/uL; Basophil% 0.1 % (0-1); Eosinophil# 0.91 X10^3/uL; Eosinophils% 6.5 % (0-5); Hematocrit 33.6 % (40-54); Hemoglobin 10.7 g/dL (13.0-16.5); Lymphocyte # 1.12 X10^3/ul (0.83-4.51); Mean Corp Hgb Conc 31.8 g/dL (32-36); Mean Corpuscular Hgb 29.5 pg (27.0-32.0); Mean Corpuscular Volume 92.6 fL (80-94); Mean Platelet Vol. 11.1 fl (6.2-12.0); Monocyte# 1.21 X10^3/uL; Monocyte% 8.6 % (0-10); NRBC Flagged by Analyzer 0 % (0-5); Neutrophil # 10.65 X10^3/uL (2.7-7.7); Neutrophil % 75.8 % (47-70); Platelet Count 146 K/mm3 (150-450); RBC Distribution Width CV 13.8 % (11.6-14.6); RBC Distribution Width SD 46.8 fl (35.1-43.9); Red Blood Count 3.63 M/mm3 (4.6-6.2); White Blood Count 14.1 K/mm3 (4.4-11.0)
[2022-03-28 05:48] LABS: ALB/GLOB Ratio 0.9 RATIO (0.9-2.4); AST(SGOT) 15 U/L (15-37); Alanine Aminotransfer ALT/SGPT 12 U/L (16-61); Albumin, Serum 2.9 g/dL (3.2-5.0); Alkaline Phosphatase 46 U/L (45-117); BUN 29 mg/dL (7-18); BUN/Creat Ratio 20.9 RATIO (10-20); Calcium,Total 10.2 mg/dL (8.5-10.1); Chloride 110 mmol/L (98-107); Creatinine, Serum 1.39 mg/dL (0.70-1.30); EST Glomerular Filtration Rate 53 mL/min (>60); Est Glom Filt Rate - Afr Amer 64 mL/min (>60); Estimated Creatinine Clearance 48.14 ml/min; Globulin 3.3 g/dL (2.2-4.2); Glucose 118 mg/dL (74-106); Protein, Total 6.2 g/dL (6.4-8.2); Sodium Level 141 mmol/L (136-145)
[2022-03-28 05:49] LABS: Anion Gap 5 (5-15)
[2022-03-28 06:25] LABS: Bedside Glucose 111 mg/dL (74-106)
--- NOTE | 2022-03-28 06:31 | NURSING ---
Pt refusing Heparin during this shift. Pt requests that they speak with their physician prior receiving this medication. Education provided regarding the use of this medication. Medication information sheet provided.
[2022-03-28] MEDS: 0.9% Normal Saline 1,000 ML 100 ML IV ×2 (06:44→19:53)
[2022-03-28 08:09] VITALS: BP 138/71; PULSE 63; RESP 17; TEMP 36.9; O2SAT 94
[2022-03-28 08:10] VITALS: BP 138/71; PULSE 63
[2022-03-28] MEDS: Metoprolol Tartrate 50 MG Tablet PO ×2 (08:10→20:59)
--- NOTE | 2022-03-28 10:47 | CASEMGMT ---
ANISA MACIAS Assessment: Face to Face with pt for initial transition planning/care coordination assessment. ANISA MACIAS introduced self and role at [facility], pt voices understanding and consents to assessment. Pt is A/O x4 and answers all questions appropriately at this time. Pt sitting up in chair in no distress. Care providers, pharmacy, and demographics verified/updated. Admitting Dx: debility PCP:Peg Specialists: Pt denies having any specialists, states he doesn't need any. Preferred Pharmacy: [facility] Retail Insurance: [employer] A Prescription Benefit: yes LW/HPOA: Pt states he has a LW/DPOA and his is his DPOA. Pt is aware this is not on file at [facility] and he may bring in to be scanned into his chart. LNOK: Samanta Whitlock, Living Arrangements: Pt lives with in a single story house with 1 step to enter without a rail. Pt reports he is I in ADL's and denies concerns at home. Transportation: Pt states he does not drive. States he has transportation but he and his do not have the wellness to go to appointments. Asked pt who would transport him, pt states don't know. Notified SW. DME/HHC/SNF: Pt states he has 2 FWW, 2 canes a functioning BMG with strips and lancets at home. States he checks his blood sugar 3x/day. Pt denies hx of HHC or SNF stays. Pt states no concerns with going home at time of dc. Discussed that pt is needing two people to assist him to get up. Pt states that is just for today. Pt states he would be open to having HHC come into the home if recommended. States, I want to approve it then I will decide if I want it. Pt states he has no interest in a SNF. Pt states no further concerns/needs. CM to follow. Advised pt to ask CM if any further question/concerns/needs arise, voices understanding. Pt Goal: Home Plan: Home with possible HHC.
--- NOTE | 2022-03-28 11:25 | PCM.PN.HOSP ---
Documented by User: Alize Davis WRAPPER AND PRESERVER, WRAPPER AND PRESERVER-C 03/28/22 11:41 Subjective Subjective Patient seen and examined. States he feels significantly improved. Denies further diarrhea since admission. Denies abdominal pain, nausea, vomiting. Objective Data Objective Data Vital Signs: Vital Signs Temp Pulse Resp BP Pulse Ox 98.5 F 63 17 138/71 H 94 03/28/22 08:09 03/28/22 08:10 03/28/22 08:09 03/28/22 08:10 03/28/22 08:09 Oxygen Delivery Method Room Air Weight: 209 lb 7.026 oz Body Mass Index (BMI) 29.5 Intake & Output: Intake and Output for Last 24 Hours 03/26/22 03/27/22 03/28/22 23:59 23:59 23:59 Intake Total 1318.33 / 1318.33 1040.00 / 1040.00 Output Total 350 / 350 Balance 1318.33 / 1318.33 690.00 / 690.00 Medical Nutrition Assessment Dietitian: Malnutrition Criteria Met Start: 03/28/22 09:57 Freq: Status: Active Protocol: Document 03/28/22 09:58 (Rec: 03/28/22 09:58 [id number]) Nutrition Malnutrition Evidence of Malnutrition Exists Yes Malnutrition (severe): Chronic Malnutrition (unspecified) Severe pro/eva Evidenced By Suboptimal Energy Intake ( Severe),Weight Loss (Severe) Clinical Problem Chronic Disease or Condition Related Malnutrition Etiology (Severe) related to suboptimal appetite Signs/Symptoms as evidenced by <75% PO intake of estimated energy needs for >1 month and 11.9% weight loss in 6months. Status Active Problem Recommendation Dietitian Recommendations/Changes 1999 Consistent Carbohydrate diet Magic Cup BID Discontinue Regular diet Lab / Micro Data Result Diagrams: 03/28/22 04:59 03/28/22 04:59 Labs: Laboratory Results - last 24 hr 03/27/22 13:35: WBC 16.6 H, RBC 4.12 L, Hgb 12.3 L, Hct 38.0 L, MCV 92.2, MCH 29.9, MCHC 32.4, RDW Std Deviation 45.2 H, RDW Coeff of Tracie 13.5, Plt Count 197, MPV 12.0, Immature Gran % (Auto) 0.700, Neut % (Auto) 76.4 H, Lymph % (Auto) 10.0 L, Dillingham % (Auto) 9.4, Eos % (Auto) 3.3, Baso % (Auto) 0.2, Absolute Neuts (auto) 12.7 H, Absolute Lymphs (auto) 1.66, Nucleated RBC % 0, Diff Path Review March03/27/22 13:35: PT 13.6, INR 1.1, APTT 30.9 03/27/22 13:35: Sodium 144, Potassium 4.1, Chloride 109 H, Carbon Dioxide 26.0, Anion Gap 9, BUN 27 H, Creatinine 1.56 H, Estim Creat Clear Calc 42.90, Est GFR (MDRD) Af Amer 56 L, Est GFR (MDRD) Non-Af 46 L, BUN/Creatinine Ratio 17.3, Glucose 125 H, Calcium 11.5 H, Total Bilirubin 0.60, AST 14 L, ALT 14 L, Alkaline Phosphatase 50, Troponin I High Sens 39, Total Protein 7.1, Albumin 3.4, Globulin 3.7, Albumin/Globulin Ratio 0.9, Lipase 40 L 03/27/22 13:35: Lactic Acid 1.9 03/27/22 13:35: Phosphorus 3.2, Magnesium 1.2 L 03/27/22 14:10: Urine Color Yellow, Urine Clarity Clear, Urine pH 5.0, Ur Specific Lorena 1.030, Urine Protein 15 H, Urine Glucose (UA) Normal, Urine Ketones Negative, Urine Occult Blood Negative, Urine Nitrite Negative, Urine Bilirubin Negative, Urine Urobilinogen Normal, Ur Leukocyte Esterase Negative, Urine RBC 0 SEEN, Urine WBC 0 SEEN, Ur Squamous Epith Cells 0-5 SEEN, Urine Bacteria 0 SEEN, Hyaline Casts 0-5 SEEN, Urine Mucus 0 SEEN 03/27/22 17:25: POC Glucose 110 H 03/27/22 21:03: POC Glucose 125 H 03/28/22 04:59: WBC 14.1 H, RBC 3.63 L, Hgb 10.7 L, Hct 33.6 L, MCV 92.6, MCH 29.5, MCHC 31.8 L, RDW Std Deviation 46.8 H, RDW Coeff of Tracie 13.8, Plt Count 146 L, MPV 11.1, Immature Gran % (Auto) 1.000 H, Neut % (Auto) 75.8 H, Lymph % (Auto) 8.0 L, Dillingham % (Auto) 8.6, Eos % (Auto) 6.5 H, Baso % (Auto) 0.1, Absolute Neuts (auto) 10.7 H, Absolute Lymphs (auto) 1.12, Nucleated RBC % 0 03/28/22 04:59: Sodium 141, Potassium 4.0, Chloride 110 H, Carbon Dioxide 26.0, Anion Gap 5, BUN 29 H, Creatinine 1.39 H, Estim Creat Clear Calc 48.14, Est GFR (MDRD) Af Amer 64, Est GFR (MDRD) Non-Af 53 L, BUN/Creatinine Ratio 20.9 H, Glucose 118 H, Calcium 10.2 H, Magnesium 2.0, Total Bilirubin 0.80, AST 15, ALT 12 L, Alkaline Phosphatase 46, Total Protein 6.2 L, Albumin 2.9 L, Globulin 3.3, Albumin/Globulin Ratio 0.9 03/28/22 06:20: POC Glucose 111 H Micro: Microbiology 03/27/22 14:10 Nasal Secretion SARS-CoV-2 & FLU Antigen (Rapid) - Final Radiography Diagnostic Testing: Radiology Impression Chest X-Ray 03/27/22 13:50 IMPRESSION: Nonacute portable x-ray examination of the chest. Electronically Signed: Ji Harvey MD (Brooks) at 14:19 EDT , KUB X-Ray 03/27/22 16:02 IMPRESSION: No evidence of acute intra-abdominal process. Electronically Signed: Vitaliy Crook DO at 17:26 EDT Reading Location ID and State: [facility] / [place] Tel [phone], Service support , Physical Exam Const alert and oriented x3 Orientation / Consciousness: awake, oriented to person, oriented to place and oriented to time HEENT normocephalic Mouth: dry mucous membranes Eyes PERRL, EOMs intact bilaterally and conjunctivae normal Neck no lymphadenopathy Resp normal respiratory effort and clear to auscultation bilaterally Cardio regular rate, regular rhythm and no murmurs Peripheral Pulses: pulses 2+ throughout GI normal to inspection, nondistended, normoactive bowel sounds and non-distended Palpation: tender Extremity normal to inspection Skin no rashes or lesions noted Lesions: no lesions Rashes: no rashes Trauma: no lacerations or abrasions Neuro CN's II-XII intact bilaterally, no focal motor deficits, no sensory deficits noted and deep tendon reflexes 2+ bilaterally Psych mental status grossly normal and affect normal Assessment & Plan Assessment/Plan (1) Acute renal failure: PLAN: 1. Acute kidney injury- secondary to GI loss/poor intake. Creatinine trending down however not yet at baseline. Continue aggressive hydration with IV fluids, trend BMP. Hold nephrotoxic regimen. 2. Diarrhea-Awaiting stool sample. C. difficile and enteric pathogen panel pending. Possibly related to partially obstructing mass? 3. Colon mass-found September 2021. Colonoscopy showed an infiltrative partially obstructing mass in the rectosigmoid colon. Biopsy showed tubular adenoma. We will repeat CT scan following improvement in renal function. Plan for CT 03/29 following repeat BMP to assess renal function. 4. Severe protein calorie malnutrition-as evidenced by recent 20 pound weight loss. Dietitian consult. Continue dietary supplementation per dietitian recommendation. 5. History of polymyalgia rheumatica- diagnosed 09/2021. Discharged on steroids which he has since stopped taking. 6. Paroxysmal atrial fibrillation- continue metoprolol. Not on anticoagulation due to history of GI bleed. 7. CAD with history of stent placement-on aspirin, Plavix, statin, metoprolol. 8. Type 2 diabetes mellitus-hold metformin. Accu-Cheks with sliding scale insulin. 9. Peripheral vascular disease-continue aspirin, statin. 10. Hypertension-elevated on admission. Now improved. Continue metoprolol. Hold lisinopril due to acute kidney injury. As needed hydralazine. 11. Debility/failure to thrive- PT/OT. Follow recommendations. 12. Leukocytosis-suspect secondary to BLAYNE/dehydration. No evidence of infection. UA/chest x-ray unremarkable. Afebrile. White count trending down. DVT prophylaxis-heparin sc This patient was seen by DC Massey under the supervision of Dr. Whyte. Time spent examining patient, reviewing data and subsequent management of care: 13 minutes Documented by User: Dr. Leticia Whyte MD 03/28/22 13:46 Objective Data Lab / Micro Data Result Diagrams: 03/28/22 04:59 03/28/22 04:59 Charges/Coding Addendum Addendum: This patient was seen in conjunction with Alize Davis NP. I have independently interviewed and examined the patient and reviewed pertinent historical, laboratory, and other data. I have reviewed her note and concur with her documentation She was seen and examined. He stated that he feels improved. No diarrhea. He is still feeling very weak. Physical Exam: Gen: Comfortable, not pale, not jaundiced, CVS:HS I +II, regular, no murmurs RESP: Diminished at lung bases GI: BS present and normal, soft, nontender, no palpable organs EXT:No edema ASSESSMENT: 1. Debility, acute on chronic 2. Acute kidney injury, likely prerenal 3. Hypomagnesemia 4. Rectosigmoid mass 5. Hypertension 6. Suspected polymyalgia rheumatica 7. Hyperlipidemia 8. CAD status post stent 9. PAD 10. Type II DM Plan: Continue on IV fluids Resume aspirin and Plavix PT/OT to evaluate and treat Continue to hold metformin, blood glucose checks with insulin sliding scale CT of the abdomen pelvis with contrast after hydration tomorrow Patient will need contrast-induced allergy protocol Time spent coordinating all aspects of patient care, reviewing his clinical data, discussing with him and answering questions, discussing with nursin minutes Visit Charges Inpatient E&M: 89688 Subs Hosp L2
[2022-03-28] MEDS: 0.9% Saline Lock 10 ML Syringe IV (11:42)
[2022-03-28 13:56] LABS: Pathologist Review Reviewed
--- NOTE | 2022-03-28 14:20 | CASEMGMT ---
PT yoni reviewed, ANISA MACIAS in to pt room, pt sitting up in bed and at bedside. Discussed how pt did with therapy, he states he did well. Patient and were provided a list of HHC providers including quality and resource use data and consistent with the patient?s preferred geographic region, medical needs, and insurance network. Patient states he will look into this and set up himself. Patient states he needs to call the agencies, look up all references and make a decision. Asked pt to confirm that he did not want this set up prior to him leaving the hospital, pt states no. Discussed that pt is here for debility and for him to set this up at home there will be a gap in time and a physicians order is needed. Pt states he will call his doctor and get it. Also made pt aware that his insurance requires a F2F encounter, so he would need to go into the doctor. From this morning's conversation, transportation is a concern. Pt states that is just the way I do things. Made pt aware that should he change his mind to notify the ANISA MACIAS. Pt is in agreement with this plan. Plan: Home without HHC set up prior to dc.
[2022-03-28] MEDS: Aspirin 81 MG TAB.CHEW PO (15:15)
[2022-03-28] MEDS: Clopidogrel Bisulfate 75 MG Tablet PO (15:15)
[2022-03-28 15:23] VITALS: BP 138/62; PULSE 62; RESP 16; TEMP 36.7; O2SAT 95
[2022-03-28 15:31] LABS: Bedside Glucose 121 mg/dL (74-106)
--- NOTE | 2022-03-28 15:49 | CASEMGMT ---
Social Work SW met with pt and to discuss discharge plan. SW introduced self and role of SW. Extensive conversation regarding discharge plan. Pt confesses that he is very weak and a strain on his at home as she is not strong enough to help him move. Options presented to pt including [facility] TCU, SNF, and home with home therapy. Much discussion surrounding each option and the benefits and drawbacks. SW provided list of SNF providers including quality and resource use data and consistent with the patients preferred geographic region, medical needs and insurance network. Pt and both agree that short term rehabilitation in TCU is preferred. SW also provided pt and with written resources for transportation. Pt appreciative and accepting of information. Referral made to Georgina in TCU. Georgina to review case and will notify SW with determination. Plan: TCU, pending acceptance and precert KATELYNN Vallejo
[2022-03-28 17:01] LABS: Bedside Glucose 116 mg/dL (74-106)
[2022-03-28] MEDS: predniSONE 10 MG Tablet 50 MG PO (20:15)
[2022-03-28 20:52] VITALS: BP 131/55; PULSE 62; RESP 18; TEMP 36.9; O2SAT 95
[2022-03-28 20:59] VITALS: BP 131/55; PULSE 62
[2022-03-28] MEDS: Pravastatin 80 MG Tablet PO (20:59)
[2022-03-28 22:45] LABS: Bedside Glucose 145 mg/dL (74-106)
[2022-03-29 02:06] VITALS: BP 152/85; PULSE 63; RESP 16; TEMP 36.4; O2SAT 94
[2022-03-29] MEDS: predniSONE 10 MG Tablet 50 MG PO ×2 (02:08→08:27)
[2022-03-29] MEDS: 0.9% Saline Lock 10 ML Syringe IV ×2 (02:08→11:46)
--- NOTE | 2022-03-29 05:55 | CT_ITS ---
STUDY: CT ABDOMEN AND PELVIS WITH CONTRAST REASON FOR EXAM: Male, 72 years old. Diarrhea for 6 months, fever, chills, weight loss RADIATION DOSAGE (If Supplied By Facility): CTDIvol = ( 17.74 ) mGy, DLP = ( 1192.48 ) mGycm TECHNIQUE: Transaxial images were obtained from the dome of the diaphragm to the symphysis pubis with oral contrast. 100 mm ISOVUE 300 was administered. Sagittal and coronal images were reconstructed. Individualized dose optimization techniques were used for this CT. COMPARISON: 06/28/2018 FINDINGS: The visualized lung bases are unremarkable. The visualized portions of the heart are within normal limits. Normal liver. Intrahepatic biliary air likely related to previous biliary intervention/sphincterotomy. Gallbladder is contracted Normal spleen. Normal pancreas. Normal bilateral adrenal glands. Simple bilateral renal cysts. No required imaging follow-up needed given high likelihood of benign nature. No hydronephrosis. Residual food in the stomach. Normal small intestine. There are multiple colonic diverticula consistent with diverticulosis. Wall thickening of the sigmoid colon is best seen on image 88 of series 2 and image 87 of series 602 no free peritoneum. There is mild fluid adjacent to the sigmoid colon on image 89. Small collection of air posterior to the sigmoid colon may represent a diverticulum vs contained perforation. There is non-visualization of the appendix. There is diffuse atherosclerotic calcification of the abdominal aorta, without a demonstrated aneurysm. Dense calcification of the right common iliac and right femoral artery with probable stenosis. Normal inferior vena cava. Normal retroperitoneum. Normal urinary bladder. Normal abdominal wall. There are diffuse degenerative changes of the visualized lumbar spine. CT/Abdomen/Pelvis WITH Contrast IMPRESSION: 1. Sigmoid colon wall thickening could represent diverticulitis, colitis or neoplasm. Mild adjacent inflammation and trace adjacent fluid. No hepatic masses. 2. Significant arterial atherosclerotic disease with suspected stenoses of the right common iliac and femoral arteries. Electronically Signed: Ji Harvey MD (Brooks) at 10:41 EDT Reading Location ID and State: [facility] / [place] , Service support ,
[2022-03-29] MEDS: 0.9% Normal Saline 1,000 ML 100 ML IV (06:01)
[2022-03-29 06:04] VITALS: BP 143/68; PULSE 62; RESP 18; TEMP 36.6; O2SAT 95
[2022-03-29 06:13] LABS: Absolute Lymphocyte Count 0.64 X10^3/uL (0.83-4.51); Basophil# 0.01 X10^3/uL; Basophil% 0.1 % (0-1); Eosinophil# 0.04 X10^3/uL; Eosinophils% 0.4 % (0-5); Hematocrit 32.4 % (40-54); Hemoglobin 10.2 g/dL (13.0-16.5); Lymphocyte # 0.64 X10^3/ul (0.83-4.51); Lymphocyte % 5.8 % (19-41); Mean Corp Hgb Conc 31.5 g/dL (32-36); Mean Corpuscular Hgb 29.1 pg (27.0-32.0); Mean Corpuscular Volume 92.3 fL (80-94); Mean Platelet Vol. 11.7 fl (6.2-12.0); Monocyte# 0.23 X10^3/uL; Monocyte% 2.1 % (0-10); NRBC Flagged by Analyzer 0 % (0-5); Neutrophil # 9.96 X10^3/uL (2.7-7.7); Neutrophil % 90.8 % (47-70); Platelet Count 152 K/mm3 (150-450); RBC Distribution Width CV 13.5 % (11.6-14.6); RBC Distribution Width SD 45.5 fl (35.1-43.9); Red Blood Count 3.51 M/mm3 (4.6-6.2)
[2022-03-29 06:38] LABS: ALB/GLOB Ratio 0.8 RATIO (0.9-2.4); AST(SGOT) 15 U/L (15-37); Alanine Aminotransfer ALT/SGPT 14 U/L (16-61); Albumin, Serum 2.8 g/dL (3.2-5.0); Alkaline Phosphatase 51 U/L (45-117); Anion Gap 8 (5-15); BUN 30 mg/dL (7-18); BUN/Creat Ratio 25.9 RATIO (10-20); Calcium,Total 9.6 mg/dL (8.5-10.1); Chloride 109 mmol/L (98-107); Creatinine, Serum 1.16 mg/dL (0.70-1.30); EST Glomerular Filtration Rate 65 mL/min (>60); Est Glom Filt Rate - Afr Amer 79 mL/min (>60); Estimated Creatinine Clearance 57.69 ml/min; Globulin 3.4 g/dL (2.2-4.2); Glucose 154 mg/dL (74-106); Potassium 4.1 mmol/L (3.5-5.1); Protein, Total 6.2 g/dL (6.4-8.2); Sodium Level 139 mmol/L (136-145)
[2022-03-29 06:50] LABS: Bedside Glucose 160 mg/dL (74-106)
[2022-03-29 08:26] VITALS: BP 176/58; PULSE 62
[2022-03-29] MEDS: Metoprolol Tartrate 50 MG Tablet PO (08:26)
[2022-03-29] MEDS: Aspirin 81 MG TAB.CHEW PO (08:27)
[2022-03-29] MEDS: Clopidogrel Bisulfate 75 MG Tablet PO (08:27)
[2022-03-29 08:32] VITALS: BP 176/58; PULSE 62; RESP 17; TEMP 36.9; O2SAT 97
[2022-03-29] MEDS: DiphenhydrAMINE 25 MG Capsule 50 MG PO (08:47)
--- NOTE | 2022-03-29 09:56 | CASEMGMT ---
Addendum entered by Mary Dennis 03/29/22 12:16: Pertcert has been obtained and is good through 03/31. Pt and physician updated. Plan: TCU, when medically ready KATELYNN Vallejo Addendum entered by Mary Dennis 03/29/22 11:25: Pt updated about TCU placement and pending insurance authorization. KATELYNN Vallejo Original Note: Social Work SW spoke with Georgina in TCU. Pt is accepted to TCU and precert has been started. Pt out of room, will notify pt when he is available. KATELYNN Vallejo
[2022-03-29] MEDS: Insulin Lispro 100 UNIT/ML INSULN.PEN SC (11:41)
[2022-03-29 11:50] LABS: Bedside Glucose 196 mg/dL (74-106)
[2022-03-29] MEDS: Heparin Injection (Vial) 5,000 UNIT/ML VIAL 5000 UNIT SC (13:22)
[2022-03-29 13:24] VITALS: PULSE 63
[2022-03-29] MEDS: Metoprolol Tartrate 25 MG Tablet PO (13:24)
[2022-03-29 13:32] VITALS: BP 153/63; PULSE 63; RESP 18; TEMP 36.7; O2SAT 95
--- NOTE | 2022-03-29 13:51 | TREXTCAR_ITS ---
Diet 03/28/22 13:32 Diet: Carbohydrate Controlled Food consistency:: Regular Liquid Consistency:: Regular/Thin Type of Dietary Supplement:: magic cup Is pt able to select menu?: Yes Diet Comments: w/ lunch and dinner Routine Orders/Code Status Enema Type: Fleetz Enema Frequency: Daily PRN Suppository Type: Dulcolax 10mg Suppository Frequency: Daily PRN Keep PO Greater than or Equal to (%): 94 Routine Lab Work: CBC (within 3 days) and BMP (within 3 days) Code Status: DNRCC-A Wound(s) right forde: Wound Type: Abrasion Therapies Weight Bearing: Weight bearing as tolerated Physical Therapy: Eval and Treat Occupational Therapy: Eval and Treat Problem/Diagnosis (1) Acute renal failure: Status: Acute Allergies/Procedures Done in Hospital Allergies acetaminophen [From Darvocet-N] Allergy (Unknown, Verified 03/27/22 12:59) Unknown amitriptyline HCl [From Elavil] Allergy (Unknown, Verified 03/27/22 12:59) Unknown atorvastatin calcium [From Lipitor] Allergy (Unknown, Verified 03/27/22 12:59) Unknown azithromycin [From Zithromax] Allergy (Unknown, Verified 03/27/22 12:59) Unknown cefaclor [Cefaclor] Allergy (Unknown, Verified 03/27/22 12:59) Unknown ciprofloxacin [From Cipro] Allergy (Unknown, Verified 03/27/22 12:59) Unknown ciprofloxacin HCl [From Cipro] Allergy (Unknown, Verified 03/27/22 12:59) Unknown hydroxyzine HCl [From Atarax] Allergy (Unknown, Verified 03/27/22 12:59) Unknown influenza virus vaccine, specific [Influenza Virus Vacc,Specific] Allergy (Unknown, Verified 03/27/22 12:59) Unknown iodine Allergy (Unknown, Verified 03/27/22 12:59) Unknown latex Allergy (Unknown, Verified 03/27/22 12:59) Unknown levofloxacin [From Levaquin] Allergy (Unknown, Verified 03/27/22 12:59) Unknown lidocaine Allergy (Unknown, Verified 03/27/22 12:59) Unknown lovastatin Allergy (Unknown, Verified 03/27/22 12:59) Unknown niacin Allergy (Unknown, Verified 03/27/22 12:59) Unknown Penicillins Allergy (Unknown, Verified 03/27/22 12:59) Unknown pneumococcal vaccine [Pneumococcal Vaccine] Allergy (Unknown, Verified 03/27/22 12:59) Unknown propoxyphene napsylate [From Darvocet-N] Allergy (Unknown, Verified 03/27/22 12:59) Unknown quinapril HCl [From Accupril] Allergy (Unknown, Verified 03/27/22 12:59) Unknown red dye Allergy (Unknown, Verified 03/27/22 12:59) Unknown rosuvastatin calcium [From Crestor] Allergy (Unknown, Verified 03/27/22 12:59) Unknown simvastatin Allergy (Unknown, Verified 03/27/22 12:59) Unknown Sulfa (Sulfonamide Antibiotics) Allergy (Unknown, Verified 03/27/22 12:59) Unknown Tetanus Vaccines and Toxoid [Tetanus Vaccines & Toxoid] Allergy (Unknown, Verified 03/27/22 12:59) Unknown tetracycline [Tetracycline] Allergy (Unknown, Verified 03/27/22 12:59) Unknown yellow dye Allergy (Unknown, Verified 03/27/22 12:59) Unknown fentanyl Allergy (Verified 03/27/22 12:59) Unknown hydrochlorothiazide Allergy (Verified 03/27/22 12:59) Unknown CREATINE MONOHYDRATE Allergy (Unknown, Uncoded 03/27/22 12:59) Unknown Procedures: None Type of Care/Length of Stay Estimated LOS: Convalescent Care Less Than 30 days Type of Care Needed: Skilled Rehab Potential: Good Prognosis: Good Additional Orders/Day of Discharge Day of Discharge: 03/29/22 Dietary and Speech Recommendations Dietitian Recommendations/Changes: 2000 Consistent Carbohydrate diet Magic Cup BID Discontinue Regular diet Discharge Plan Admission Admit Date/Time: 03/28/22 09:50 Primary Reason for Your Visit: Debility, sigmoid mass Attending Provider: Leticia Whyte Primary Care Provider: Ziyad Ruvalcaba Instructions Additional Instructions / Restrictions: Patient's Metformin has been held in view of contrast given on 03/29/22. May resume Metformin after 48 hours. Patient needs to follow-up with colorectal surgeon, Dr. Archer in [facility] at discharge. Discharge Orders/Prescriptions Prescriptions: New metoprolol tartrate 50 mg Tablet 75 mg PO BID Qty: 0 RF: 0 amoxicillin-pot clavulanate [Augmentin] 500-125 mg tablet 1 tab PO BID 10 Days Qty: 20 RF: 0 Continued clopidogrel 75 MG tablet 75 mg PO DAILY RF: 0 hydrocodone-acetaminophen 1 EACH tablet 1 tab PO DAILY PRN (Reason: Back Pain) RF: 0 pravastatin 20 MG tablet 80 mg PO QHS RF: 0 albuterol sulfate [Ventolin HFA] 1 INHALER inhaler 2 puff inhalation PRN PRN (Reason: Shortness Of Breath) RF: 0 lisinopril 10 mg tablet 10 mg PO BID RF: 0 aspirin 81 mg Tablet 81 mg PO DAILY RF: 0 Discontinued metoprolol tartrate 50 MG tablet 50 mg PO BID RF: 0 metformin 1,000 mg tablet 1,000 mg PO BID 30 Days Qty: 60 RF: 0 Referrals / Follow Up: Ziyad Ruvalcaba MD [Primary Care Provider] - Disposition Disposition (needs filled in before D/C Order can be placed): Home, Self Care
--- NOTE | 2022-03-29 13:59 | PCM.DC.SUM ---
Providers Date of Admission: 03/28/22 Date of Discharge: 03/29/22 Primary Care Physician: Dr. Ziyad Ruvalcaba MD Reason For Visit: DEBILITY Diagnosis Discharge Diagnosis (1) Acute renal failure: Status: Acute Code(s): N17.9 - Acute kidney failure, unspecified (2) Debility: Status: Acute Code(s): R53.81 - Other malaise (3) Severe malnutrition: Status: Chronic Code(s): E43 - Unspecified severe protein-calorie malnutrition Medications at Discharge Home Medications albuterol sulfate [Ventolin HFA] 2 puff INHALATION PRN PRN 08/23/14 clopidogrel 75 mg PO DAILY 08/23/14 hydrocodone-acetaminophen 1 tab PO DAILY PRN 08/23/14 pravastatin 80 mg PO QHS 08/23/14 aspirin 81 mg PO DAILY 09/08/21 lisinopril 10 mg PO BID 09/08/21 amoxicillin-pot clavulanate [Augmentin] 1 tab PO BID 10 Days #20 tab 03/29/22 metoprolol tartrate 75 mg PO BID #0 tab 03/29/22 Hospital Course Operations None Procedures None Summary of Care Provided Minutes Spent on Discharge: 40 Hospital Course: 72 y/o male with multiple co-morbidities significant for CAD, COPD, Hypertension, Type II DM who presented with generalized weakness. Patient was last discharged from the hospital in September 2021 after being diagnosed with a partially obstructing sigmoid mass( see colonoscopy report on 09/2021 as well as pictures). General surgery was consulted in that admission and referred patient to see Dr. Archer in [facility]. Patient however has not been able to follow-up with any physician including his primary care doctor. He presented because he felt progressively weak. He was found to have acute kidney injury, prerenal from dehydration and hypomagnesemic. Patient was admitted to the MedSur floor and hydrated. ET of the abdomen and pelvis shows sigmoid wall thickening thought to be either diverticulitis or colitis or neoplasm. Discussed with GI and general surgery; recommended outpatient gets colorectal surgery opinion for excision. Patient was discharged on oral Augmentin for total of 10 days to treat probable diverticulitis. He was seen by PT and OT and skilled for discharge to [facility] facility. He had evidence of severe protein calorie malnutrition, nutrition was consulted, put on supplements. I attempted several times to call the and discussed patient's overall goals of care and follow-up with colorectal surgery in [facility]. I left several voice messages. Physical Exam Narrative Physical Exam: Gen: Comfortable, not pale, not jaundiced, CVS:HS I +II, regular, no murmurs RESP: Diminished at lung bases GI: BS present and normal, soft, nontender, no palpable organs EXT: Bilateral trace edema Medical Records Data Medical Nutrition Assessment Dietitian: Malnutrition Criteria Met Start: 03/28/22 09:57 Freq: Status: Active Protocol: Document 03/28/22 09:58 LO (Rec: 03/28/22 09:58 [id number]) Nutrition Malnutrition Evidence of Malnutrition Exists Yes Malnutrition (severe): Chronic Malnutrition (unspecified) Severe pro/eva Evidenced By Suboptimal Energy Intake ( Severe),Weight Loss (Severe) Clinical Problem Chronic Disease or Condition Related Malnutrition Etiology (Severe) related to suboptimal appetite Signs/Symptoms as evidenced by <75% PO intake of estimated energy needs for >1 month and 11.9% weight loss in 6months. Status Active Problem Recommendation Dietitian Recommendations/Changes 1999 Consistent Carbohydrate diet Magic Cup BID Discontinue Regular diet Weight / BMI Weight Weight: 97.9 kg Body Mass Index (BMI) 29.5 ABG / Lab / Microbiology Data Result Diagrams: 03/29/22 05:08 03/29/22 05:08 Laboratory: Laboratory Results - last 24 hr 03/28/22 11:32: POC Glucose 121 H 03/28/22 16:43: POC Glucose 116 H 03/28/22 20:57: POC Glucose 145 H 03/29/22 05:08: WBC 11.0, RBC 3.51 L, Hgb 10.2 L, Hct 32.4 L, MCV 92.3, MCH 29.1, MCHC 31.5 L, RDW Std Deviation 45.5 H, RDW Coeff of Tracie 13.5, Plt Count 152, MPV 11.7, Immature Gran % (Auto) 0.800, Neut % (Auto) 90.8 H, Lymph % (Auto) 5.8 L, [place] % (Auto) 2.1, Eos % (Auto) 0.4, Baso % (Auto) 0.1, Absolute Neuts (auto) 10.0 H, Absolute Lymphs (auto) 0.64 L, Nucleated RBC % 0 03/29/22 05:08: Sodium 139, Potassium 4.1, Chloride 109 H, Carbon Dioxide 22.0, Anion Gap 8, BUN 30 H, Creatinine 1.16, Estim Creat Clear Calc 57.69, Est GFR (MDRD) Af Amer 79, Est GFR (MDRD) Non-Af 65, BUN/Creatinine Ratio 25.9 H, Glucose 154 H, Calcium 9.6, Total Bilirubin 0.40, AST 15, ALT 14 L, Alkaline Phosphatase 51, Total Protein 6.2 L, Albumin 2.8 L, Globulin 3.4, Albumin/Globulin Ratio 0.8 L 03/29/22 06:33: POC Glucose 160 H 03/29/22 11:37: POC Glucose 196 H Microbiology: Microbiology 03/27/22 14:07 Blood Culture (Wb) - Right Wrist Blood Culture - Preliminary No growth in 48 hours. 03/27/22 13:35 Blood Culture (Wb) - Anticubital Left Blood Culture - Preliminary No growth in 48 hours. 03/27/22 14:10 Nasal Secretion SARS-CoV-2 & FLU Antigen (Rapid) - Final Radiography Diagnostic Testing: Radiology Impression Abdomen/Pelvis CT 03/29/22 05:55 IMPRESSION: 1. Sigmoid colon wall thickening could represent diverticulitis, colitis or neoplasm. Mild adjacent inflammation and trace adjacent fluid. No hepatic masses. 2. Significant arterial atherosclerotic disease with suspected stenoses of the right common iliac and femoral arteries. Electronically Signed: Ji Harvey MD (Brooks) at 10:41 EDT Reading Location ID and State: [facility] / [place] , Service support , D/C Instructions Discharge Diet: No restrictions Meaningful Use Info Meaningful Use Diagnoses (Choose all that apply): None applicable Discharge Plan Admission Admit Date/Time: 03/28/22 09:50 Primary Reason for Your Visit: Debility, sigmoid mass Attending Provider: Leticia Whyte Primary Care Provider: Ziyad Ruvalcaba Instructions Additional Instructions / Restrictions: Patient's Metformin has been held in view of contrast given on 03/29/22. May resume Metformin after 48 hours. Patient needs to follow-up with colorectal surgeon, Dr. Archre in [facility] at discharge. Discharge Orders/Prescriptions Prescriptions: New metoprolol tartrate 50 mg Tablet 75 mg PO BID Qty: 0 RF: 0 amoxicillin-pot clavulanate [Augmentin] 500-125 mg tablet 1 tab PO BID 10 Days Qty: 20 RF: 0 Continued clopidogrel 75 MG tablet 75 mg PO DAILY RF: 0 hydrocodone-acetaminophen 1 EACH tablet 1 tab PO DAILY PRN (Reason: Back Pain) RF: 0 pravastatin 20 MG tablet 80 mg PO QHS RF: 0 albuterol sulfate [Ventolin HFA] 1 INHALER inhaler 2 puff inhalation PRN PRN (Reason: Shortness Of Breath) RF: 0 lisinopril 10 mg tablet 10 mg PO BID RF: 0 aspirin 81 mg Tablet 81 mg PO DAILY RF: 0 Discontinued metoprolol tartrate 50 MG tablet 50 mg PO BID RF: 0 metformin 1,000 mg tablet 1,000 mg PO BID 30 Days Qty: 60 RF: 0 Referrals / Follow Up: Ziyad Ruvalcaba MD [Primary Care Provider] - Disposition Disposition (needs filled in before D/C Order can be placed): Home, Self Care Charges/Coding Visit Charges Inpatient E&M: 94448 Disch Hosp
--- NOTE | 2022-03-29 15:11 | CASEMGMT ---
Social Work Per physician, pt is ready for discharge today. Orders faxed to TCU and SW notified pt of discharge plan. Pt is agreeable. SW inquired if could be called and pt declined stating that he already notified her and she is not feeling well at home today. Nursing updated. Disposition: TCU skilled level of care KATELYNN Vallejo
[2022-03-29 16:21] LABS: Bedside Glucose 162 mg/dL (74-106)
== END 2022-03-29 17:21 | disposition home or self-care (01) | DRG 682 ==
LOC: ED 15:21 → MS3 15:42
PROVIDERS: Admitting Provider Internal Medicine; Emergency Provider Emergency Medicine; PCP Family Medicine; Visit Provider Internal Medicine
DX: N17.9 Acute kidney failure, unspecified (principal); E43 Unspecified severe protein-calorie malnutrition; K57.92 Diverticulitis of intestine, part unspecified, without perforation or abscess without bleeding; R62.7 Adult failure to thrive; E11.51 Type 2 diabetes mellitus with diabetic peripheral angiopathy without gangrene; I48.0 Paroxysmal atrial fibrillation; E86.0 Dehydration; J44.9 Chronic obstructive pulmonary disease, unspecified; M35.3 Polymyalgia rheumatica; E78.5 Hyperlipidemia, unspecified; E83.42 Hypomagnesemia; I10 Essential (primary) hypertension; K52.9 Noninfective gastroenteritis and colitis, unspecified; I25.10 Atherosclerotic heart disease of native coronary artery without angina pectoris; K63.9 Disease of intestine, unspecified; Z79.84 Long term (current) use of oral hypoglycemic drugs; Z66 Do not resuscitate; Z87.891 Personal history of nicotine dependence; R53.81 Other malaise; Z79.82 Long term (current) use of aspirin; Z51.5 Encounter for palliative care; Z79.02 Long term (current) use of antithrombotics/antiplatelets; Z95.5 Presence of coronary angioplasty implant and graft
CPT/HCPCS: 36415; 71045; 74018; 74177; 80053; 81001; 82962; 83605; 83690; 83735; 84100; 84484; 85025; 85610; 85730; 87040; 87426; 87428; 93005; 97162; 97166; 97802; 99251; 99285; J7030; Q9967; A4216; G0463; J0295

== ENCOUNTER 2022-03-29 17:35 | Inpatient (IN) | payer OTHER, MEDICARE, SELFPAY ==
[2022-03-29 18:24] VITALS: BMI 28.6
[2022-03-29 18:31] VITALS: BP 162/62; PULSE 56; RESP 16; TEMP 35.9; O2SAT 96
[2022-03-29 20:00] VITALS: PULSE 60; RESP 16; O2SAT 97
[2022-03-29 20:05] LABS: Bedside Glucose 126 mg/dL (74-106)
--- NOTE | 2022-03-29 20:11 | HP.PCM_ITS ---
HPI - General General Date of Admission: 03/29/22 HPI Narrative 03/27/2022 GIANA TANG, is a 72 Male who presents to [facility] Emergency Department with generalized illness. 03/27/2022 EKG normal sinus rhythm, nonspecific ST abnormality, Abnormal EKG. Global weakness, unable to get out of bed, not eating, but drinking fluids. New urinary incontinence, chronic diarrhea x 6 months. Shortness of breath, productive cough. 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 WBC 16.6, Lactate normal, Creatinine 1.56, Chest X-ray negative. UA negative, covid negative, flu negative. 03/27/2022 Admit to Hospital. Hold Lisinopril, give IV fluids for acute kidney injury. Repeat CT A/P for sigmoid colon cancer. Hydralazine as needed for elevated blood pressure. 03/28/2022 Feels much better. Aggressive IV hydration. CT A/P shows no worsening of sigmoid colon cancer. 03/29/2022 Admit to TCU with debility, here for rehabilitation, strengthening, prior to discharge home with . [facility] Medical History Agent orange exposure Anemia Atherosclerosis of coronary artery of [place] heart without angina pectoris Carotid stenosis Chronic fatigue disorder COPD (chronic obstructive pulmonary disease) Esophagitis Hyperlipidemia Hypertension Non-rheumatic tricuspid valve insufficiency Nonrheumatic aortic valve insufficiency Osteoporosis Peripheral vascular occlusive disease Restless legs Sleep apnea Thrombocytopenia Tubular adenoma polyp of rectum Type 2 diabetes mellitus without complications Home Medications albuterol sulfate [Ventolin HFA] 2 puff INHALATION PRN PRN 08/23/14 [History Last Taken 03/24/22] clopidogrel 75 mg PO DAILY 08/23/14 [History Last Taken 03/25/22] hydrocodone-acetaminophen 1 tab PO DAILY PRN 08/23/14 [History Last Taken 03/25/22] pravastatin 80 mg PO QHS 08/23/14 [History Last Taken 03/25/22] aspirin 81 mg PO DAILY 09/08/21 [History Last Taken 03/25/22] lisinopril 10 mg PO BID 09/08/21 [History Last Taken 03/25/22] amoxicillin-pot clavulanate [Augmentin] 1 tab PO BID 03/29/22 [History Last Taken Unknown] metoprolol tartrate 75 mg PO BID 03/29/22 [History Last Taken Unknown] Allergy/AdvReac Type Severity Reaction Status Date / Time acetaminophen Allergy Unknown Unknown Verified 03/27/22 12:59 [From Darvocet-N] amitriptyline HCl Allergy Unknown Unknown Verified 03/27/22 12:59 [From Elavil] atorvastatin calcium Allergy Unknown Unknown Verified 03/27/22 12:59 [From Lipitor] azithromycin [From Zithromax] Allergy Unknown Unknown Verified 03/27/22 12:59 cefaclor [Cefaclor] Allergy Unknown Unknown Verified 03/27/22 12:59 ciprofloxacin [From Cipro] Allergy Unknown Unknown Verified 03/27/22 12:59 ciprofloxacin HCl Allergy Unknown Unknown Verified 03/27/22 12:59 [From Cipro] hydroxyzine HCl [From Atarax] Allergy Unknown Unknown Verified 03/27/22 12:59 influenza virus vaccine, Allergy Unknown Unknown Verified 03/27/22 12:59 specific [Influenza Virus Vacc,Specific] iodine Allergy Unknown Unknown Verified 03/27/22 12:59 latex Allergy Unknown Unknown Verified 03/27/22 12:59 levofloxacin [From Levaquin] Allergy Unknown Unknown Verified 03/27/22 12:59 lidocaine Allergy Unknown Unknown Verified 03/27/22 12:59 lovastatin Allergy Unknown Unknown Verified 03/27/22 12:59 niacin Allergy Unknown Unknown Verified 03/27/22 12:59 Penicillins Allergy Unknown Unknown Verified 03/27/22 12:59 pneumococcal vaccine Allergy Unknown Unknown Verified 03/27/22 12:59 [Pneumococcal Vaccine] propoxyphene napsylate Allergy Unknown Unknown Verified 03/27/22 12:59 [From Darvocet-N] quinapril HCl [From Accupril] Allergy Unknown Unknown Verified 03/27/22 12:59 red dye Allergy Unknown Unknown Verified 03/27/22 12:59 rosuvastatin calcium Allergy Unknown Unknown Verified 03/27/22 12:59 [From Crestor] simvastatin Allergy Unknown Unknown Verified 03/27/22 12:59 Sulfa (Sulfonamide Allergy Unknown Unknown Verified 03/27/22 12:59 Antibiotics) Tetanus Vaccines and Toxoid Allergy Unknown Unknown Verified 03/27/22 12:59 [Tetanus Vaccines & Toxoid] tetracycline [Tetracycline] Allergy Unknown Unknown Verified 03/27/22 12:59 yellow dye Allergy Unknown Unknown Verified 03/27/22 12:59 fentanyl Allergy Unknown Verified 03/27/22 12:59 hydrochlorothiazide Allergy Unknown Verified 03/27/22 12:59 CREATINE MONOHYDRATE Allergy Unknown Unknown Uncoded 03/27/22 12:59 Family History Father CAD (coronary artery disease) Mother CAD (coronary artery disease) Cancer Brother CAD (coronary artery disease) Surgical History History of coronary artery stent placement (~01/05/03) History of right and left heart catheterization (~02/18/15) Social History (Updated 03/29/22 @ 20:[address] Kenroy Faustin MD) household members: spouse Smoking Status: Former smoker quit date: 11/04/07 alcohol intake: never substance use type: does not use ROS Constitutional Constitutional: Denies chills, fever(s) or weight gain ENT HEENT: Denies headache(s), nasal congestion or nasal discharge Cardiovascular Cardiovascular: Denies chest pain or palpitations Respiratory/Chest Respiratory/Chest: Denies cough, excessive phlegm production or shortness of breath with exertion Gastrointestinal Gastrointestinal: Denies abdominal pain, nausea or vomiting Genitourinary Genitourinary: Denies dysuria Musculoskeletal Musculoskeletal: Denies joint pain or joint swelling Integumentary Integumentary: Denies rash or wounds Neurologic Neurologic: Denies focal weakness, numbness or tingling Psychiatric Psychiatric: Denies anxiety, auditory hallucinations, depression, homicidal ideation or suicidal ideation Vital Signs Vital Signs Vital Signs: 03/29/22 18:31 Temperature 96.7 F L Temperature Source Temporal Pulse Rate 56 L Respiratory Rate 16 Blood Pressure 162/62 H Blood Pressure Mean 95 Blood Pressure Source Monitor Blood Pressure Position Sitting Blood Pressure Location Left Forearm Pulse Ox 96 Oxygen Delivery Method Room Air Weight Weight: 95.906 kg Body Mass Index (BMI) 28.6 Physical Exam Const alert General Appearance: cooperative HEENT normocephalic Eyes PERRL and EOMs intact bilaterally Neck supple, no JVD and no carotid bruits Resp normal respiratory effort, normal air movement and clear to auscultation bilaterally Cardio regular rate and regular rhythm GI normal to inspection, nondistended, normoactive bowel sounds, non-tender and non-distended Extremity normal capillary refill General Extremity: Negative for edema Skin no rashes or lesions noted General Skin Exam: no breakdown Psych affect normal Appearance: appropriate Results Lab / Micro Data Labs: Laboratory Results - last 24 hr 03/29/22 20:01: POC Glucose 126 H Assessment & Plan Assessment/Plan (1) Debility: (2) Weakness: (3) Acute kidney injury: (4) Dehydration: (5) Cancer of sigmoid colon: (6) Chronic diarrhea: (7) Atrial fibrillation: (8) Diabetes mellitus: (9) Peripheral vascular disease: (10) Chronic obstructive pulmonary disease: (11) Coronary artery disease: (12) Hyperlipidemia: (13) Diverticulitis of colon: PLAN: 72 year old male with below past medical history significant for sigmoid colon cancer, admitted to hospital with weakness, acute kidney injury, dehydration, admitted to TCU with debility, here for rehabilitation, strengthening, prior to discharge home with . * Debility - PT/OT. * Pain - Tylenol 1000mg q6h prn pain (1-3), Oxycodone 5mg q4h prn pain (4-10). * Bowel - monitor, chronic diarrhea. * Adult immunization - Administer pneumonia vaccine, covid19 vaccine, flu vaccine. * DVT prophylaxis - Hold, on dual antiplatelet therapy, and anemia. * COPD - Albuterol 2 puffs q4h prn. * Coronary artery disease - Metoprolol 75mg bid, Lisinopril 10mg bid, Plavix 75mg daily, Aspirin 81mg daily. * Hypertension - Metoprolol 75mg bid, Lisinopril 10mg bid. * Diabetes Mellitus II - Metformin 1000mg bidcm. * Hyperlipidemia - Pravastatin 80mg qhs. * Diverticulitis of colon - Cipro 500mg bid, Flagyl 500mg bid thru 04/09/2022, PCN allergic. * Sigmoid colon cancer - Follow up with Dr. Archer at [facility] if resident willing to undergo treatment. * Fall - CT head, neuro-checks for head injury, X-ray right shoulder.
[2022-03-29 21:26] LABS: Bedside Glucose 139 mg/dL (74-106)
--- NOTE | 2022-03-29 21:30 | RAD_ITS ---
INDICATION: fall, R shoulder pain, numbness R 4/5th fingers EXAMINATION/TECHNIQUE: X-RAY - RIGHT XR Shoulder Min 2 Views 2 VIEWS COMPARISON: Chest x-ray 03/27/2022. FINDINGS: SOFT TISSUES: No soft tissue swelling or gas. No radiopaque foreign body. BONES/JOINTS: No acute fracture or malalignment. Preservation of the joint space and no degenerative bony proliferative changes. No sclerotic or destructive changes observed. RAD/Shoulder min 2 Views IMPRESSION: Negative. Electronically Signed: Lamonte Mary DO at 22:07 EDT ,
[2022-03-29 21:54] VITALS: BP 169/66; PULSE 56
[2022-03-29] MEDS: Metoprolol Tartrate 50 MG Tablet 75 MG PO (21:54)
[2022-03-29] MEDS: metroNIDAZOLE 500 MG Tablet PO (21:54)
[2022-03-29] MEDS: Pravastatin 80 MG Tablet PO (21:55)
--- NOTE | 2022-03-29 23:50 | NURSING ---
Addendum entered by Meliza Tracy 03/30/22 05:56: xrays and head CT negative, patient returned from ER to TCU around 0230. Original Note: 1939- RN heard noise coming from patient's room, went to check on patient and found him sitting on the floor in the bathroom beside the toilet. Patient had not called for help to bathroom. He'd hit small glass shelf and broke it off, landed on right side hitting shelf and trash can. Has redness/abrasion to right ear, right arm, right flank. Helped to toilet with 2 assist. Vitals taken, BP elevated at 207/78. Patient oriented x3 but then would make out of place comments. Helped to chair then back to bed. Blood sugar 126. Repeat BP 186/65, HR 60. Patient complains of pain in right shoulder and right side of head/ear, said he has numbness on right ear and head around ear, says he has numbness going down right arm and into 4/5th fingers. No chest pain, no shortness of breath, strength equal bilat, PERRLA. Lungs clear. 02 97% on RA. Paged MD around 8:20, updated him on fall, patient symptoms, vitals. Verbal order for neuro checks, right shoulder xray, and for head CT. Updated MD that per patient's insurance CT needs pre-cert and would not be able to be done until tomorrow sometime. 2050- BP 147/77. Patient still oriented x3 but continues to makes strange comments. He said he now has numbness and tingling in lower extremities but that he has back issues and that comes and goes, not new. 2149- Patient sleeping, woke up to hearing his name, able to tell RN date, unsure where he was at. PERRLA, patient says numbness to head and extremities is improving. Nursing instant potato processing supervisor had been notified of fall and came to room to see patient. On chart review patient had been on multiple blood thinners on other unit, concern that head CT unable to be done tonight, updated Dr. Faustin via text that per nursing judgement would like patient seen in ER for CT tonight. He agreed, said to send patient. Gretchen, nursing instant potato processing supervisor notified ER that patient being sent to them. Patient transferred to ER about 2229. RN called and updated of fall and that patient was sent to ER. Per he does get very confused at times and has had multiple falls.
[2022-03-30] VITALS (8 sets, daily range): BP systolic 144–174; BP diastolic 50–69; PULSE 52–103; RESP 16; TEMP 36–36.6; O2SAT 93–96
--- NOTE | 2022-03-30 04:12 | PCA ---
patient was in er until about 330 am
[2022-03-30 05:47] LABS: Absolute Lymphocyte Count 0.98 X10^3/uL (0.83-4.51); Absolute Neutrophil Count 7.4 X10^3/uL (2.0-7.7); Basophil# 0.02 X10^3/uL; Basophil% 0.2 % (0-1); Eosinophils% 3.1 % (0-5); Hematocrit 27.9 % (40-54); Lymphocyte # 0.98 X10^3/ul (0.83-4.51); Lymphocyte % 10.3 % (19-41); Mean Corp Hgb Conc 32.3 g/dL (32-36); Mean Corpuscular Hgb 29.2 pg (27.0-32.0); Mean Corpuscular Volume 90.6 fL (80-94); Mean Platelet Vol. 10.9 fl (6.2-12.0); Monocyte# 0.73 X10^3/uL; Monocyte% 7.7 % (0-10); NRBC Flagged by Analyzer 0 % (0-5); Neutrophil # 7.36 X10^3/uL (2.7-7.7); Neutrophil % 77.2 % (47-70); Platelet Count 153 K/mm3 (150-450); RBC Distribution Width CV 13.5 % (11.6-14.6); RBC Distribution Width SD 44.2 fl (35.1-43.9); Red Blood Count 3.08 M/mm3 (4.6-6.2); White Blood Count 9.5 K/mm3 (4.4-11.0)
[2022-03-30] MEDS: metroNIDAZOLE 500 MG Tablet PO ×4 (05:58→20:08)
[2022-03-30] MEDS: Clopidogrel Bisulfate 75 MG Tablet PO (05:59)
[2022-03-30] MEDS: Lisinopril 10 MG Tablet PO ×2 (05:59→18:25)
[2022-03-30] MEDS: Metoprolol Tartrate 50 MG Tablet 75 MG PO ×2 (06:02→18:25)
[2022-03-30 06:10] LABS: Anion Gap 7 (5-15); BUN 42 mg/dL (7-18); BUN/Creat Ratio 31.6 RATIO (10-20); Calcium,Total 9.8 mg/dL (8.5-10.1); Chloride 112 mmol/L (98-107); Creatinine, Serum 1.33 mg/dL (0.70-1.30); EST Glomerular Filtration Rate 56 mL/min (>60); Est Glom Filt Rate - Afr Amer 68 mL/min (>60); Estimated Creatinine Clearance 53.48 ml/min; Glucose 110 mg/dL (74-106); Potassium 3.9 mmol/L (3.5-5.1); Sodium Level 142 mmol/L (136-145)
[2022-03-30 06:31] LABS: Bedside Glucose 101 mg/dL (74-106)
[2022-03-30] MEDS: Aspirin 81 MG TAB.CHEW PO (08:05)
[2022-03-30] MEDS: Tuberculin,Purif.prot.deriv. 50 TU/ML Vial 0.1 ML ID (09:36)
[2022-03-30] MEDS: Glucerna Shake 120 ML LIQUID PO ×2 (12:59→18:27)
--- NOTE | 2022-03-30 13:14 | NURSING ---
resident educated on the COVID 19 Vaccine and does not want to receive it.
[2022-03-30 16:46] LABS: Bedside Glucose 94 mg/dL (74-106)
[2022-03-30] MEDS: Pravastatin 80 MG Tablet PO (20:08)
[2022-03-30] MEDS: oxyCODONE 5 MG Tablet PO (20:08)
--- NOTE | 2022-03-30 20:10 | NURSING ---
Pt sitting up in chair, alert and oriented, pt c/o pain during assessment, 04/13, states he takes oxycodone at home for pain. Neuro checks have been negative, medicated with oxy per order per pt request. Talked to pt about calling for help before getting up, states yesa, I fell last night, I don't want to do that again, I promise I'll call. Call light in reach, will continue to monitor.
[2022-03-30 21:46] LABS: Bedside Glucose 81 mg/dL (74-106)
[2022-03-31] VITALS (8 sets, daily range): BP systolic 127–159; BP diastolic 48–81; PULSE 53–62; RESP 15–18; TEMP 36.4–36.6; O2SAT 95–98
[2022-03-31 03:51] LABS: Bedside Glucose 90 mg/dL (74-106)
--- NOTE | 2022-03-31 04:04 | NURSING ---
Addendum entered by Columba Barth 03/31/22 04:08: Also noted that pt has edema to left arm/elbow area, warm to touch. Pt states he does not know why, cannot remember if he had an iv in that arm. Lt arm elevated on pillow. Note left for Dr. Rapp to address in am. Original Note: Pt transferred self to br then pulled call light to be helped back to bed, pt states he could not wait to turn call light on, he had to go really bad and states he is embarrassed because he was incontinent. Pt cleaned self with wipes, dry attends placed and assisted back to ed. Pt alert and oriented, answers questions appropriately. Given diet herbie lamar per request and pt fingernails clipped per his request. Pt talks about his family and his grandpa who he was named after. Reminded pt once again to use call light if he needs anything, pt verbalizes understanding.
[2022-03-31] MEDS: Metoprolol Tartrate 50 MG Tablet 75 MG PO ×2 (06:47→17:58)
[2022-03-31] MEDS: Lisinopril 10 MG Tablet PO ×2 (06:47→17:57)
[2022-03-31] MEDS: metroNIDAZOLE 500 MG Tablet PO ×4 (06:47→21:02)
[2022-03-31] MEDS: Clopidogrel Bisulfate 75 MG Tablet PO (06:47)
[2022-03-31 07:00] LABS: Bedside Glucose 85 mg/dL (74-106)
[2022-03-31] MEDS: Aspirin 81 MG TAB.CHEW PO (08:02)
[2022-03-31] MEDS: Glucerna Shake 120 ML LIQUID PO ×2 (08:05→11:00)
--- NOTE | 2022-03-31 10:50 | PCM.PN.BLA ---
Progress Note Asked by nursing to see a patient for swollen left arm. He denies any pain in the arm. He has not had any fevers. White blood cell count was normal yesterday. He previously had an IV in the left antecubital and he thinks it may have infiltrated. There is some pitting edema of the LUE distal to the arm. There is no swelling in the olecranon bursa. I do not appreciate any erythema and the arm is not especially warm to touch. He has no hx of Blood clots and he denies SOB. He has a hx of colon cancer which was diagnosed in September of 2021. He has not followed up with any one for this. We has a decreased appetite and he has been losing weight. He tells me he is sleeping well. He is making good eye contact with me when we talk. He has a hx of depression and we discussed that decreased motivation is a symptom of depression. We discussed some of the other sx and I suggeested we try antidepressant but, he wants to hold off at this time and think about it. We also discussed who is plans on seeing for oncology. He mentioned a doctor in [place] but, his has CA and she sees Dr. Benjamín Yang. I mentioned all of the 4 oncologists in [place] and suggested since he lives in [place] it may be more convenient for him to follow up in [place]. He has apparently seen Dr. Valentino who felt he would be better served by seeing a surgeon who does more colon surgery than she does. He wants to get treated for the CA he just needs some help scheduling appts. I reviewed the CT of the abd and pelvis and is showed sigmoid colon wall thickening that is not much different than he had at the last CT. He has multiple diverticuli and there is mild adjacent inflammation and trace fluid adjacent to the area of sigmoid thickening. He came to the ED on 03/27/22 with complaints of diarrhea and weakness. He has been falling at home due to weakness in the legs. He was found to be in acute renal failure and IV fluids were ordered. He improved with hydration. Diarrhea resolved. I do not find that any testing was ever done on his stool. He is on Flagyl. He is also on 1,000 mg of Metformin BID but, it will not start until 04/01/22. BS's are low and the last 5 sugars have been 101 or less. 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 The rectal mass was partially obstructing at the time of diagnosis. I suspect he is depressed and he does not have the motivation to move forward and get tx for the CA. He will need surgery and will also need to see and oncologist. He is agreeable to seeing an oncologist and general surgeon at [facility]. Systolic BP has been elevated....possibly due to anxiety. Calcium corrected for hypoalbuminemia is high. Plan 1. Elevate the LUE in a sling and re-examine again tomorrow. 2. Order IV fluids and recheck a BMP, Albumin, CBC with diff in the AM. Also check a PTH and a HGBA1C. 3. He has severe protein calorie nutrition and the shaper hand is following and providing supplements which he tells me he has been drinking. 4. Hemoccult stool - he is on ASA and Plavix and has a colon malignancy and a declining HGB 5. Will refer to Dr. Carver and Dr. Celia goodwin [facility].
[2022-03-31] MEDS: oxyCODONE 5 MG Tablet PO (10:52)
[2022-03-31 11:31] LABS: Bedside Glucose 80 mg/dL (74-106)
[2022-03-31] MEDS: 0.9% Normal Saline 1,000 ML 125 ML IV ×2 (13:02→20:59)
--- NOTE | 2022-03-31 15:56 | NURSING ---
Pt with stool specimen. Per GENDER STUDIES PROFESSOR approximately a tablespoon of stool noted in collection hat, no urine present. Stool specimen noted to be red and mucus.
[2022-03-31 16:31] LABS: Bedside Glucose 89 mg/dL (74-106)
--- NOTE | 2022-03-31 17:33 | PCM.PN.RX ---
Progress Note - Pharmacy Subjective: [] TCU Admission Objective: Allergies acetaminophen [From Darvocet-N] Allergy (Unknown, Verified 03/29/22 22:43) Unknown amitriptyline HCl [From Elavil] Allergy (Unknown, Verified 03/29/22 22:43) Unknown atorvastatin calcium [From Lipitor] Allergy (Unknown, Verified 03/29/22 22:43) Unknown azithromycin [From Zithromax] Allergy (Unknown, Verified 03/29/22 22:43) Unknown cefaclor [Cefaclor] Allergy (Unknown, Verified 03/29/22 22:43) Unknown ciprofloxacin [From Cipro] Allergy (Unknown, Verified 03/29/22 22:43) Unknown ciprofloxacin HCl [From Cipro] Allergy (Unknown, Verified 03/29/22:43) Unknown hydroxyzine HCl [From Atarax] Allergy (Unknown, Verified 03/29/22:43) Unknown influenza virus vaccine, specific [Influenza Virus Vacc,Specific] Allergy (Unknown, Verified 03/29/22:43) Unknown iodine Allergy (Unknown, Verified 03/29/22 22:43) Unknown latex Allergy (Unknown, Verified 03/29/22 22:43) Unknown levofloxacin [From Levaquin] Allergy (Unknown, Verified 03/29/22 22:43) Unknown lidocaine Allergy (Unknown, Verified 03/29/22:43) Unknown lovastatin Allergy (Unknown, Verified 03/29/22 22:43) Unknown niacin Allergy (Unknown, Verified 03/29/22 22:43) Unknown Penicillins Allergy (Unknown, Verified 03/29/22 22:43) Unknown pneumococcal vaccine [Pneumococcal Vaccine] Allergy (Unknown, Verified 03/29/22 22:43) Unknown propoxyphene napsylate [From Darvocet-N] Allergy (Unknown, Verified 03/29/22 22:43) Unknown quinapril HCl [From Accupril] Allergy (Unknown, Verified 03/29/22 22:43) Unknown red dye Allergy (Unknown, Verified 03/29/22 22:43) Unknown rosuvastatin calcium [From Crestor] Allergy (Unknown, Verified 03/29/22 22:43) Unknown simvastatin Allergy (Unknown, Verified 03/29/22 22:43) Unknown Sulfa (Sulfonamide Antibiotics) Allergy (Unknown, Verified 03/29/22 22:43) Unknown Tetanus Vaccines and Toxoid [Tetanus Vaccines & Toxoid] Allergy (Unknown, Verified 03/29/22 22:43) Unknown tetracycline [Tetracycline] Allergy (Unknown, Verified 03/29/22 22:43) Unknown yellow dye Allergy (Unknown, Verified 03/29/22 22:43) Unknown fentanyl Allergy (Verified 03/29/22 22:43) Unknown hydrochlorothiazide Allergy (Verified 03/29/22 22:43) Unknown CREATINE MONOHYDRATE Allergy (Unknown, Uncoded 03/29/22 22:43) Unknown Current Medications Generic Name Dose Route Start Last Admin Trade Name Freq PRN Reason Stop Dose Admin Albuterol Sulfate 2 puff 03/29/22 20:25 Albuterol Sulfate 8 Gm Inhaler (60 Puffs) INHALATION Q4H PRN Shortness Of Breath Aspirin 81 mg 03/30/22 08:00 03/31/22 08:02 Aspirin 81 Mg Tab.Chew PO 81 mg BREAKFAST GLYNN Administration Clopidogrel Bisulfate 75 mg 03/30/22 06:00 03/31/22 06:47 Clopidogrel Bisulfate 75 Mg Tablet PO 75 mg DAILY GLYNN Administration Hydralazine HCl 10 mg 03/31/22 11:25 Hydralazine 10 Mg Tablet PO Q4H PRN PRN SYS>160 Sodium Chloride 1,000 mls @ 125 mls/hr 03/31/22 11:25 03/31/22 13:02 IV 125 mls/hr .Q8H GLYNN Administration Lisinopril 10 mg 03/30/22 06:00 03/31/22 06:47 Lisinopril 10 Mg Tablet PO 10 mg BID GLYNN Administration Metoprolol Tartrate 75 mg 03/30/22 06:00 03/31/22 06:47 Metoprolol Tartrate 50 Mg Tablet PO 75 mg BID GLYNN Administration Metronidazole 500 mg 03/29/22 22:00 03/31/22 11:00 Metronidazole 500 Mg Tablet PO 04/09/22 23:55 500 mg 4X/DAY GLYNN Administration Nutritional Formula (Lactose Free) 120 ml 03/30/22 12:45 03/31/22 11:00 Glucerna Shake 120 Ml Liquid PO 120 ml TIDCM GLYNN Administration Oxycodone HCl 5 mg 03/29/22 20:33 03/31/22 10:52 Oxycodone 5 Mg Tablet PO 5 mg Q4H PRN PRN Administration Pain Score 6-10 Pravastatin Sodium 80 mg 03/29/22 22:00 03/30/22 20:08 Pravastatin 80 Mg Tablet PO 80 mg QHS GLYNN Administration Tuberculin PPD 0.1 ml 04/06/22 10:00 Tuberculin,Purif.Prot.Deriv. 50 Tu/Ml Vial ID 04/06/22 10:01 X1 ONE Problem List (Last Reviewed 03/29/22 @ 22:[address] Josue Crump, DO) Diverticulitis of colon (Acute) Hyperlipidemia (Acute) Coronary artery disease (Acute) Chronic obstructive pulmonary disease (Chronic) Peripheral vascular disease (Acute) Diabetes mellitus (Acute) Atrial fibrillation (Acute) Chronic diarrhea (Chronic) Cancer of sigmoid colon (Acute) Dehydration (Acute) Acute kidney injury (Acute) Weakness (Acute) Debility (Acute) Vital Signs Temp Pulse Resp BP Pulse Ox 97.9 F 56 L 18 134/65 H 96 03/31/22 17:17 03/31/22 17:17 03/31/22 17:17 03/31/22 17:17 03/31/22 17:17 Oxygen Delivery Method Room Air Weight: 95.906 kg Body Mass Index (BMI) 28.6 Sodium 142 mmol/L (136-145) 03/30/22 05:28 Potassium 3.9 mmol/L (3.5-5.1) 03/30/22 05:28 Chloride 112 mmol/L (98-107) H 03/30/22 05:28 Carbon Dioxide 23.0 mmol/L (21.0-32.0) 03/30/22 05:28 Anion Gap 7 (5-15) 03/30/22 05:28 BUN 42 mg/dL (7-18) H 03/30/22 05:28 Creatinine 1.33 mg/dL (0.70-1.30) H 03/30/22 05:28 Est GFR (MDRD) Af Amer 68 mL/min (>60) 03/30/22 05:28 Est GFR (MDRD) Non-Af 56 mL/min (>60) L 03/30/22 05:28 BUN/Creatinine Ratio 31.6 RATIO (10-20) H 03/30/22 05:28 Glucose 110 mg/dL (74-106) H 05/27/22 05:28 Assessment/Plan: 1) Pain: Oxycodone 5mg po q4h prn pain 6-10. Please continue to monitor prn usage and for signs/symptoms of increased pain. --PRN usage: 2 doses to date *2) Hyperlipidemia: Pravastatin 80mg po qhs. Pts LFTs were within normal limits. I could not find a recent Lipid Panel in the pts chart. Please consider a yearly Lipid Panel while the pt is on a statin. Thanks 3) Hypertension: Metoprolol Tartrate 75mg po bid, Lisinopril 10mg po bid, Hydralazine 10mg po q4h prn for systolic bp >160. Pts SrCr is 1.33, BUN is elevated at 42, K+, is 3.9. Please continue to monitor labs. Pts average pulse over the last 10 readings is 70.9. Please continue to monitor pts pulse. Pts average BP over the last 10 readings is 150.1/62.4. Please continue to monitor pt's BP. *4) CAD: Metoprolol 75mg po bid, Lisinopril 10mg po bid, Plavix 75mg daily, Aspirin 81mg po daily. Please continue to monitor pts pulse and BP (both mentioned in #3). Pt has colon cancer and hemoccult stool. Please monitor closely for signs of bleeding. Last hgb was 9.0 on 03/30/22 5) COPD: Albuterol Inhaler 2 puffs every 4 hours as needed for shortness of breath. Please continue to monitor pt for signs/symptoms of COPD. --PRN usage: currently there have been zero administrations 6) Diabetes: Metformin recently discontinued on 03/31/22. See physicians progress note from 03/31/22 regarding blood sugars. Please continue to monitor blood sugars. 7) Diverticulitis of Colon: Metronidazole 500mg po bid thru 04/09/22. Please continue to monitor for signs/symptoms of worsening diverticuliltis. Psychotropic Medications: none Unnecessary Medications: Bowel Regimen: none Date of Note:: 03/31/22
[2022-03-31] MEDS: Pravastatin 80 MG Tablet PO (21:02)
[2022-03-31 22:26] LABS: Bedside Glucose 101 mg/dL (74-106)
[2022-04-01] VITALS (8 sets, daily range): BP systolic 132–166; BP diastolic 49–77; PULSE 54–64; RESP 16–22; TEMP 36.3–36.7; O2SAT 92–98
--- NOTE | 2022-04-01 00:03 | PCA ---
patient refused to let sash clamp operator check blood sugar
[2022-04-01 02:26] LABS: Bedside Glucose 98 mg/dL (74-106)
--- NOTE | 2022-04-01 02:55 | NURSING ---
0200- patient pulled cord in bathroom, alarming at the nurse's station. Staff went to check on patient and found him sitting on the bathroom floor near the shower. He had not called for help getting to the bathroom. He'd brought his IV pole with him. Per patient he needed to have a BM and couldn't wait. He also said he passed out when he got to the bathroom. He is adamant that he did not hit his head. Helped to standing position by staff with use of gait belt. Then helped to WC and to bed. He denied any pain, on physical assessment no new injuries noted. Neuro checks ok, he has some intermittent confusion that is unchanged from before fall. Per patient he initially had some dizziness after getting back to bed but it resolved. Updated nursing cook supervisor and Dr. Craig of fall, assessment, vitals, blood sugar, and what patient's version of happened. Verbal order from MD to do neuro checks q1hr x2, q2hr x2, q4hr x2 and update him if there are any changes.
[2022-04-01] MEDS: oxyCODONE 5 MG Tablet PO ×2 (03:33→17:09)
[2022-04-01] MEDS: 0.9% Normal Saline 1,000 ML 125 ML IV ×2 (04:40→12:23)
[2022-04-01 05:20] LABS: Absolute Lymphocyte Count 0.75 X10^3/uL (0.83-4.51); Absolute Neutrophil Count 3.4 X10^3/uL (2.0-7.7); Basophil# 0.04 X10^3/uL; Basophil% 0.6 % (0-1); Eosinophil# 1.98 X10^3/uL; Eosinophils% 27.3 % (0-5); Hematocrit 30.1 % (40-54); Hemoglobin 9.7 g/dL (13.0-16.5); Lymphocyte # 0.75 X10^3/ul (0.83-4.51); Lymphocyte % 10.3 % (19-41); Mean Corp Hgb Conc 32.2 g/dL (32-36); Mean Corpuscular Hgb 29.8 pg (27.0-32.0); Mean Corpuscular Volume 92.6 fL (80-94); Mean Platelet Vol. 10.4 fl (6.2-12.0); Monocyte# 0.86 X10^3/uL; Monocyte% 11.8 % (0-10); NRBC Flagged by Analyzer 0 % (0-5); Neutrophil # 3.41 X10^3/uL (2.7-7.7); Platelet Count 162 K/mm3 (150-450); RBC Distribution Width CV 13.5 % (11.6-14.6); RBC Distribution Width SD 46.2 fl (35.1-43.9); Red Blood Count 3.25 M/mm3 (4.6-6.2); White Blood Count 7.3 K/mm3 (4.4-11.0)
[2022-04-01 05:38] LABS: Albumin, Serum 2.5 g/dL (3.2-5.0); Anion Gap 5 (5-15); BUN 34 mg/dL (7-18); BUN/Creat Ratio 27.9 RATIO (10-20); Calcium,Total 9.3 mg/dL (8.5-10.1); Chloride 112 mmol/L (98-107); Creatinine, Serum 1.22 mg/dL (0.70-1.30); EST Glomerular Filtration Rate 62 mL/min (>60); Est Glom Filt Rate - Afr Amer 75 mL/min (>60); Estimated Creatinine Clearance 58.31 ml/min; Glucose 99 mg/dL (74-106); Magnesium 1.2 mg/dL (1.6-2.6); Potassium 4.4 mmol/L (3.5-5.1); Sodium Level 140 mmol/L (136-145)
[2022-04-01] MEDS: Metoprolol Tartrate 50 MG Tablet 75 MG PO ×2 (06:31→17:04)
[2022-04-01] MEDS: Lisinopril 10 MG Tablet PO ×2 (06:33→17:06)
[2022-04-01] MEDS: Clopidogrel Bisulfate 75 MG Tablet PO (06:33)
[2022-04-01 06:41] LABS: Bedside Glucose 87 mg/dL (74-106)
[2022-04-01] MEDS: Aspirin 81 MG TAB.CHEW PO (08:29)
[2022-04-01 11:26] LABS: Bedside Glucose 122 mg/dL (74-106)
[2022-04-01] MEDS: Glucerna Shake 120 ML LIQUID PO (12:24)
[2022-04-01] MEDS: metroNIDAZOLE 500 MG Tablet PO ×3 (12:25→20:14)
--- NOTE | 2022-04-01 14:10 | PCM.PN.BLA ---
Progress Note Afebrile VSS Maintaining appropriate oxygen saturation on RA Oral intake is poor Incontinent of urine He had a very small BM that was mostly blood. He denies N/V/Abd pain. Discussed with nursing - he got up and went into the BR last night and was found on the Floor. No injuries. Denies lightheadedness today since he has been hydrated. Reviewed the PT/OT/ST notes Medication list reviewed. Tells me that he was on Neurontin at home for diabetic peripheral neuropathy but, it was not listed on the admission H&P and he is not on it currently. He also tells me that he takes Oxycodone 10 mg no more than twice a day BUT, when I viewed his OARRS report it does not show any narcotic prescriptions for the past 2 years. I am not sure he knows what meds he is taking. He lists a whole bunch of allergies but does not know the reactions. All lab was personally reviewed. His was in the room today and I asked why he has not followed up with oncology or a surgeon for the rectosigmoid malignancy found on colonoscopy in Septembernd he said we have had a lot going on. He has not had a follow up colonoscopy. CEA was normal in September. He was partially obstructed at that time. I am concerned that the diarrhea he had may be due to enlarging mass and the only thing that can get through is liquid. They have some children but, they do not talk. There are no stool studies on the chart. Denies CP, SOB, palpitations, orthopnea, lightheadedness. ALert, pale, forgetful Not tachypneic, normal resp effort, no resp distress, few coarse crackles initially but after a few deep breaths he was CTA, not coughing HRRR, no gallop ab - soft, ND, no guarding with palpation. no significant peripheral edema. no rashes and he denies pruritus. Impressions 1. 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 He saw Dr. العراقي while in the hospital in September but, he has not followed up 2. Hypomagnesemia 3. Rectal bleeding with maroon stool 4. Diarrhea at admission to hospital - no stool studies done. Will order O&P, enteric pathogen panel, fecal leuko's and Giardia 5. dehydration - improving. Continue fluids but decrease the rate to 80 cc/hr 6. urine incontinence - check post void residuals. 7. Request records from Dr. Ruvalcaba 8. Check CEA in the AM 9. 4 GM of IV mag today. 10. recheck CBC, BMP and Mag in the AM 11. Consult Dr. Carver
[2022-04-01] MEDS: Magnesium Sulfate 4gm/100mL 4 GM/100 ML IV.SOLN. IV (14:58)
[2022-04-01 17:41] LABS: Bedside Glucose 91 mg/dL (74-106)
[2022-04-01] MEDS: Pravastatin 80 MG Tablet PO (20:13)
--- NOTE | 2022-04-01 22:46 | PCA ---
patient refused to have his glucose checked at 9pm. nurse was notified
[2022-04-02] MEDS: 0.9% Normal Saline 1,000 ML 80 ML IV ×3 (04:59→13:09)
[2022-04-02 05:00] VITALS: BP 143/53; PULSE 54
[2022-04-02] MEDS: Metoprolol Tartrate 50 MG Tablet 75 MG PO ×2 (05:00→20:24)
[2022-04-02] MEDS: Clopidogrel Bisulfate 75 MG Tablet PO (05:01)
[2022-04-02] MEDS: metroNIDAZOLE 500 MG Tablet PO (05:01)
[2022-04-02] MEDS: Lisinopril 10 MG Tablet PO ×2 (05:01→20:21)
[2022-04-02 05:53] LABS: Absolute Lymphocyte Count 0.81 X10^3/uL (0.83-4.51); Absolute Neutrophil Count 4.1 X10^3/uL (2.0-7.7); Basophil# 0.03 X10^3/uL; Basophil% 0.4 % (0-1); Eosinophils% 25.7 % (0-5); Hematocrit 29.7 % (40-54); Hemoglobin 9.5 g/dL (13.0-16.5); Lymphocyte # 0.81 X10^3/ul (0.83-4.51); Lymphocyte % 9.9 % (19-41); Mean Corpuscular Hgb 29.3 pg (27.0-32.0); Mean Corpuscular Volume 91.7 fL (80-94); Mean Platelet Vol. 10.3 fl (6.2-12.0); Monocyte# 0.83 X10^3/uL; Monocyte% 10.2 % (0-10); NRBC Flagged by Analyzer 0 % (0-5); Neutrophil # 4.11 X10^3/uL (2.7-7.7); Neutrophil % 50.3 % (47-70); POSITIVE DIFFERENTIAL YES; Platelet Count 168 K/mm3 (150-450); RBC Distribution Width CV 13.7 % (11.6-14.6); RBC Distribution Width SD 46.2 fl (35.1-43.9); Red Blood Count 3.24 M/mm3 (4.6-6.2); White Blood Count 8.2 K/mm3 (4.4-11.0)
[2022-04-02 06:22] LABS: Anion Gap 7 (5-15); BUN 27 mg/dL (7-18); BUN/Creat Ratio 22.5 RATIO (10-20); Chloride 112 mmol/L (98-107); EST Glomerular Filtration Rate 63 mL/min (>60); Est Glom Filt Rate - Afr Amer 76 mL/min (>60); Estimated Creatinine Clearance 59.28 ml/min; Glucose 120 mg/dL (74-106); Magnesium 1.6 mg/dL (1.6-2.6); Potassium 4.4 mmol/L (3.5-5.1); Sodium Level 140 mmol/L (136-145)
[2022-04-02 06:25] LABS: Differential Indicated SCAN CRITERIA MET
[2022-04-02 06:26] LABS: Differential Comment SCANNED
[2022-04-02 07:41] LABS: Hemoglobin A1c 5.5 % (3.8-5.6)
[2022-04-02] MEDS: Glucerna Shake 120 ML LIQUID PO ×2 (08:04→13:14)
[2022-04-02] MEDS: oxyCODONE 5 MG Tablet PO (08:04)
[2022-04-02] MEDS: Aspirin 81 MG TAB.CHEW PO (08:06)
[2022-04-02 09:53] VITALS: PULSE 59; RESP 20; TEMP 36.4; O2SAT 94
--- NOTE | 2022-04-02 10:44 | PCM.PROGNOTE ---
Subjective Subjective Afebrile VSS Maintaining appropriate oxygen saturation on RA Oral intake is [] Discussed with nursing - no problems that need addressed Reviewed the PT/OT/ST notes Medication list reviewed. All lab was personally reviewed. White blood cell count is normal at 8.2. Hemoglobin is stable at 9.5 and platelets are within normal limits. Eosinophils are 25.7% today. They were normal on 03/29 and 03/30. He was started on Flagyl on the . The BUN is down to 27 today and the creatinine is 1.2 which is down from 1.33 on 03/30/2022 with hydration. Hemoglobin A1c is normal at 5.5. Magnesium is 1.6 today which is borderline low. CEA is pending. Calcium corrected for hypoalbuminemia today is mildly increased at 10.2. He denies abd pain. He also denies eructation, nausea and vomiting. Oral intake has picked up a bit. He is not having regular BM's and there is hematochezia with the BM's he is having. Denies rectal pain. He is having to strain a lot to have a BM. The BS record was reviewed and BS's are good with no medication. I am concerned about his mental status. He tells me that he takes 10 mg of Oxycodone twice a day at home and he has not had a RX for any controlled substances in the last 2 years on his OARRS? The stool for the enteric pathogen panel, fecal leuko's, O&P and giardia has not been collected yet. The nurses have not been checking the toilet when he has a BM. Objective Data Objective Data Vital Signs: Vital Signs Temp Pulse Resp BP Pulse Ox 97.5 F L 59 L 20 H 143/53 H 94 04/02/22 09:53 04/02/22 09:53 04/02/22 09:53 04/02/22 05:00 04/02/22 09:53 Oxygen Delivery Method Room Air Weight: 211 lb 7 oz Body Mass Index (BMI) 28.6 Intake & Output: Intake and Output for Last 24 Hours 03/31/22 04/01/22 04/02/22 23:59 23:59 23:59 Intake Total 1473.75 / 1473.75 3985.00 / 3985.00 609.33 / 609.33 Output Total 600 / 600 Balance 1473.75 / 1473.75 3985.00 / 3985.00 9.33 / 9.33 Medical Nutrition Assessment Dietitian: Malnutrition Criteria Met Start: 03/30/22 12:06 Freq: Status: Active Protocol: Document 03/30/22 12:10 [facility] (Rec: 03/30/22 12:10 [facility] [id number]) Nutrition Malnutrition Evidence of Malnutrition Exists Yes Malnutrition (severe): Acute Illness/Injury Evidenced By Suboptimal Energy Intake ( Severe),Weight Loss (Severe), Physical Changes (Mild) Clinical Problem Acute Disease or Injury Related Malnutrition Etiology related to res c/o not being hungry resulting in inability to consume adequate nutrition to meet est nutritional needs Signs/Symptoms as evidenced by res <50% po intake 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 Status Active Problem Recommendation Dietitian Recommendations/Changes Will change diet to CHO Control / No Added Salt d/t issues with edema Will continue magic cup w/ lunch and dinner for increased nutrition if consumed Will order 120 ml glucerna shake tid w/ medpass for increased nutrition if consumed. Lab / Micro Data Result Diagrams: 04/02/22 05:41 04/02/22 05:41 Labs: Laboratory Results - last 24 hr 04/01/22 11:17: POC Glucose 122 H 04/01/22 16:10: POC Glucose 91 04/02/22 05:41: WBC 8.2, RBC 3.24 L, Hgb 9.5 L, Hct 29.7 L, MCV 91.7, MCH 29.3, MCHC 32.0, RDW Std Deviation 46.2 H, RDW Coeff of Tracie 13.7, Plt Count 168, MPV 10.3, Immature Gran % (Auto) 3.500 H, Neut % (Auto) 50.3, Lymph % (Auto) 9.9 L, Mcintosh % (Auto) 10.2 H, Eos % (Auto) 25.7 H, Baso % (Auto) 0.4, Absolute Neuts (auto) 4.1, Absolute Lymphs (auto) 0.81 L, Nucleated RBC % 0, Differential Comment SCANNED, Diff Path Review March04/02/22 05:41: Sodium 140, Potassium 4.4, Chloride 112 H, Carbon Dioxide 21.0, Anion Gap 7, BUN 27 H, Creatinine 1.20, Estim Creat Clear Calc 59.28, Est GFR (MDRD) Af Amer 76, Est GFR (MDRD) Non-Af 63, BUN/Creatinine Ratio 22.5 H, Glucose 120 H, Calcium 9.0, Magnesium 1.6 04/02/22 05:41: Hemoglobin A1c 5.5 Micro: Microbiology 03/31/22 15:30 Stool Stool Occult Blood (ANEUDY) - Final Occult Blood Positive Physical Exam Const alert and no apparent distress Constitutional Narrative: At times seems a little confrontational and tells me he was upset when Dr. Armas told him the prep for his coloscopy was not good......he took this personally. Also telling me he wants the best treatment for his CA and does not want to be jerked around but, he has not followed up since being diagnosed in September 2021? He is pale Resp normal respiratory effort Resp Narrative: CTA Effort and Inspection: able to speak in complete sentences Cardio regular rate, regular rhythm and no gallops GI GI Narrative: low frequency BS's, mildly distended and a little firm, no guarding with palpation, NT to palpation Extremity Extremity Narrative: the swelling in the left arm is down today......he does not have the sling on that I ordered. No ankle edema, calf muscles are atrophied. He is c/o severe leg pain and tells me he takes Gabapentin as an OP......he is not on Gabapentin here? Will obtain med list and last progress notes from his PCP. Psych activity/motor behavior normal Psych Narrative: Something seems off on his thought process. Await the evaluation of cognition. Attitude: evasive and guarded Assessment & Plan Assessment/Plan (1) Debility: (2) Chronic diarrhea: (3) Dehydration: (4) Diabetes mellitus: (5) Cancer of sigmoid colon: (6) Severe malnutrition: PLAN: 1. I am worried that the diarrhea may be due to a partial bowel obstruction and the fluid squeezing out around the obstruction. will get a KUB 2. Await the results of the cognitive eval. - He may not have the mental ability to arrange follow up with surgery and oncology. His does not seem to be much better and defers to him. 3. Elevate the left arm. 4. Obtain the med list from his PCP and a problem list. 5. Reminded nursing that we still need a stool sample to R/O infectious cause for the diarrhea. Charges/Coding Visit Charges Inpatient E&M: 76896 [facility] Subs L1
[2022-04-02 10:45] LABS: Bedside Glucose 149 mg/dL (74-106)
--- NOTE | 2022-04-02 10:53 | RAD_ITS ---
STUDY: X-RAY - ABDOMEN/PELVIS REASON FOR EXAM: Male, 72 years old. abd distension -- has a partially obstructing rectosigmod tumor TECHNIQUE: AP supine and decubitus views of the abdomen and pelvis. COMPARISON: 03/29/2022 CT FINDINGS: Normal visualized lung bases. There is an unremarkable bowel gas pattern. There is no demonstrated free abdominal air. The visualized liver, spleen and kidneys are grossly normal in size and morphology. Atherosclerosis of the iliofemoral arteries with left-sided vascular stents. Vascular calcifications overlie the kidneys. Normal visualized osseous structures. RAD/Abd Inc Decub and/or Erect IMPRESSION: Nonobstructive bowel gas pattern. Electronically Signed: Ji Harvey MD ([place]) at 14:12 EDT ,
[2022-04-02 13:13] VITALS: BP 146/46
[2022-04-02 15:26] VITALS: RESP 20
--- NOTE | 2022-04-02 20:10 | NURSING ---
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 States he has attacks sometimes and nitroglycerin helps with pain. BP 194/76, [address] Rapp notified. New orders for Nitroglycerin 0.4mg x 3 doses prn chest pain, obtain EKG.
--- NOTE | 2022-04-02 20:14 | EKG12_ITS ---
Test Reason : CP Blood Pressure : / mmHG Vent. Rate : 058 BPM Atrial Rate : 058 BPM P-R Int : 170 ms QRS Dur : 082 ms QT Int : 404 ms P-R-T Axes : 033 013 027 degrees QTc Int : 396 ms Sinus bradycardia Otherwise normal ECG When compared with ECG of 27-MAR-2022 13:46, No significant change was found Confirmed by MARSHALL GUERRERO, KELLY ([id number]), telegraph editor DANNA MILAN ([id number]) on 04/04/2022 12:20:05 PM Referred By: SHAKA Confirmed By:KELLY OLIVARES MD
[2022-04-02 20:24] VITALS: BP 164/77; BP 166/77; PULSE 58
[2022-04-02] MEDS: Nitroglycerin (INPATIENT USE) 0.4 MG TAB.SUBL SL (20:24)
[2022-04-02] MEDS: Pravastatin 80 MG Tablet PO (20:28)
--- NOTE | 2022-04-02 21:36 | NURSING ---
Patient resting in recliner with feet up. States he is not having anymore chest pain. O2 2L/min continues to be in place. Continues to c/o some leg pain, with 1+ pitting edema in BLE. Has hx of PVD. Will continue to monitor.
[2022-04-02] MEDS: Acetaminophen 325 MG Tablet 650 MG PO (23:04)
[2022-04-03 01:12] VITALS: BP 180/61; PULSE 59
[2022-04-03] MEDS: Nitroglycerin (INPATIENT USE) 0.4 MG TAB.SUBL SL (01:12)
--- NOTE | 2022-04-03 01:31 | NURSING ---
Patient sat up in bed, put call light on, stating he was having severe chest pain. BP obtained, systolic elevated at 180. Nitroglycerin 0.4mg administered under tongue. Pain alleviated after 10 minutes. Blood pressure lower. Patient stated he was chilled and was assisted with blanket. Temperature obtained, 98.0 temporal. Talked with patient about current medical issues and labs. He stated he is unhappy and wants to go home. He would like to have a conference with the physician and his . Told him that the physician will be notified of his request. Will continue to monitor condition.
[2022-04-03] MEDS: Lisinopril 10 MG Tablet PO (04:51)
[2022-04-03 04:52] VITALS: BP 159/82; PULSE 54
[2022-04-03] MEDS: Metoprolol Tartrate 50 MG Tablet 75 MG PO (04:52)
[2022-04-03] MEDS: Clopidogrel Bisulfate 75 MG Tablet PO (04:53)
[2022-04-03] MEDS: Magnesium Chloride 64 MG Delay Rel.Tablet 128 MG PO (04:53)
--- NOTE | 2022-04-03 05:02 | NURSING ---
Patient had large BM this morning. Did not want rectal suppository. Discussed his colon cancer diagnosis and follow-up. He verbalized understanding and stated that he would like to follow up with oncologist in [place] rather than [place]. Patient accepting of medications without issue this morning. Blood pressure remains slightly elevated, with pulse being lower. Denies any chest pain this morning. Will continue to monitor.
[2022-04-03] MEDS: Glucerna Shake 120 ML LIQUID PO (08:11)
[2022-04-03] MEDS: Aspirin 81 MG TAB.CHEW PO (08:11)
--- NOTE | 2022-04-03 09:25 | NURSING ---
Addendum entered by Nell Blair 04/03/22 09:46: Additionally, patient was unwilling to wait so that AMA paperwork could be signed. Original Note: This nurse was called to senior front end web developer by PRINTER MACHINE stating patient and his spouse were walking to the elevator. This nurse attempted to speak with patient and spouse, asking why he was leaving and if he would talk to this nurse about what had happened. Patient and spouse refused, pt stating he had enough. This nurse offered to contact the , spouse stated we already talked to her yesterday. They refused further discussion and left on the elevator. Dr. Rapp and Electro Mechanical Solar Technician [employer] contacted.
--- NOTE | 2022-04-03 10:17 | CASEMGMT ---
Addendum entered by Laurie Crowder 04/03/22 15:05: Referral made to Kevin at [facility]. Original Note: Social Work Pt left with ANIRUDH. Social Work assessment nor MDS assessment was completed. Laurie Crowder, PAMELA EDUCATOR SENIOR CLINICAL
[2022-04-03 11:51] LABS: Pathologist Review Reviewed
--- NOTE | 2022-04-03 12:06 | DS.PCM_ITS ---
Providers Date of Admission: 03/29/22 Date of Discharge: 04/03/22 Primary Care Physician: Dr. Ziyad Ruvalcaba MD Reason For Visit: DEBILITY Diagnosis Discharge Diagnosis (1) Debility: Status: Acute Code(s): R53.81 - Other malaise (2) Acute kidney injury: Status: Acute Code(s): N17.9 - Acute kidney failure, unspecified (3) Chronic diarrhea: Status: Chronic Code(s): K52.9 - Noninfective gastroenteritis and colitis, unspecified (4) Dehydration: Status: Acute Code(s): E86.0 - Dehydration (5) Generalized weakness: Status: Acute Code(s): R53.1 - Weakness (6) Severe malnutrition: Status: Chronic Code(s): E43 - Unspecified severe protein-calorie malnutrition (7) Cancer of sigmoid colon: Status: Acute Code(s): C18.7 - Malignant neoplasm of sigmoid colon (8) Heme + stool: Status: Acute Code(s): R19.5 - Other fecal abnormalities (9) Anemia: Status: Acute Code(s): D64.9 - Anemia, unspecified (10) Cognitive dysfunction: Status: Chronic Code(s): F09 - Unspecified mental disorder due to known physiological condition (11) Diabetes mellitus: Status: Chronic Code(s): E11.9 - Type 2 diabetes mellitus without complications (12) Diverticulitis of colon: Status: Chronic Code(s): K57.32 - Diverticulitis of large intestine without perforation or abscess without bleeding (13) Hyperlipidemia: Status: Chronic Code(s): E78.5 - Hyperlipidemia, unspecified (14) Coronary artery disease: Status: Chronic Code(s): I25.10 - Atherosclerotic heart disease of [place] coronary artery without angina pectoris (15) Chronic obstructive pulmonary disease: Status: Chronic Code(s): J44.9 - Chronic obstructive pulmonary disease, unspecified (16) Peripheral vascular disease: Status: Chronic Code(s): I73.9 - Peripheral vascular disease, unspecified (17) Atrial fibrillation: Status: Chronic Code(s): I48.91 - Unspecified atrial fibrillation (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 Pt left AMA and would not wait to talk with me or to get prescriptions. 2. KUB on 04/02/22 showed a large amount of stool in the colon despite him c/o chronic diarrhea. Had a large BM after a Dulcolax suppository. 3. 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 Valentino to a surgeon in [place] to have it removed. He has not followed up. He is losing wt and is not drinking or eating. 4. Seen by for cognitive eval during admission to TCU and the [facility] mental status examination. A score of 27-30 is within normal limits and the patient scored 17 out of 30 which falls within the range suggestive of dementia. 5. He lives with his who also has CA. They are both evasive. 6. He has hematochezia. 7. Blood sugars are good on no hypoglycemia agents. 8. I suspect he may not have the cognitive ability to arrange follow up care and since he and his are so evasive I am concerned they may not be managing well at home. Maybe he does not eat because he can not afford food. The SW was asked to contact Adult Protective Services to check out the home situation to make sure Cy and his are safe in their home. Medications at Discharge Home Medications albuterol sulfate [Ventolin HFA] 2 puff INHALATION PRN PRN 08/23/14 clopidogrel 75 mg PO DAILY 08/23/14 hydrocodone-acetaminophen 1 tab PO DAILY PRN 08/23/14 pravastatin 80 mg PO QHS 08/23/14 aspirin 81 mg PO DAILY 09/08/21 lisinopril 10 mg PO BID 09/08/21 amoxicillin-pot clavulanate [Augmentin] 1 tab PO BID 03/29/22 metoprolol tartrate 75 mg PO BID 03/29/22 Hospital Course Operations None Procedures None Summary of Care Provided Minutes Spent on Discharge: 30 Hospital Course: Cy Whitlock is a 72 YO male with a PMH of colon CA (diagnosed in September of 2021), DM II, hypertension, hyperlipidemia, COPD, coronary artery disease, carotid stenosis, osteoporosis and peripheral neuropathy who presented to the ED at [facility] on 03/27/22 c/o not feeling well. He had been losing wt and having chronic diarrhea. He also c/o new urinary incontinence and generalized weakness with falls. He was diagnosed with ARF due to dehydration and was admitted to the hospital. He was aggressively hydrated and kidney function improved. A CT of the abd and pelvis was reported as no worsening of the colon CA. Stool studies were ordered but, never obtained. The diarrhea reportedly resolved. He was transferred to TCU on 03/29 for PT/OT to strengthen him prior to returning home. I spoke to Cy and his an a few occasions while in TCU. They are evasive and would not discuss their home situation. When I asked why he had not followed up with the surgeon in [place] recommended by Dr. Valentino he and his said we have a lot going on. He has also not followed up with an oncologist. They said they have children but, they do not communicate with them. He told me that he took Oxycodone twice a day at home for pain in the legs but, the [place]ARRS report did not show any narcotic prescriptions for the past 2 years. He also told me he was taking Gabapentin but, it was not on his list of home medications. He has very poor balance and had a few falls on TCU with no injuries. He did not use the walker and was continually getting out of bed to he BR without calling nursing. We discussed his hx of depression and possibly starting Remeron to stimulate his appetite but, he refused. He was having bright red blood per rectum and he would not save his BM in the toilet so that stool studies could be obtained. He said they were mostly liquid. We were finally able to obtain a stool sample. Stool lactoferrin was negative. The enteric pathogen panel was negative. Ova and parasites are still pending. HGB has been stable at 9.5 prior to him leaving. Platelets were within normal limits. Creatinine was 1.2 at discharge. Magnesium was low at 1.2 and he received supplementation. Blood sugars were all less than 150 on no medication. Oral intake was poor. Hemoglobin A1c was 5.5. CEA was 2.2 which is the same as it was in September 2021. A KUB of the abd was obtained and showed a large amount of stool in the colon with a normal bowel gas pattern. He was given a Dulcolax suppository on 04/02/22 and had a very large BM. While on TCU he had a cognitive evaluation by the speech therapist and he scored poorly.....the score was in keeping with dementia. The following morning I was notified that his came to pick him up and they left the hospital despite nursing trying to talk him into staying to talk with me. I spoke with the SW about notifying Adult Protective Services to make sure that they are safe in their home. It seems that they have no support and I do not think he is capable of arranging appts with surgery and oncology. She said she would make the referral. Physical Exam Narrative The pt left prior to being seen by me and I was not able to examine on the day of DC. Weight / BMI Weight Weight: 211 lb 7 oz Body Mass Index (BMI) 28.6 ABG / Lab / Microbiology Data Result Diagrams: 04/02/22 05:41 04/02/22 05:41 Laboratory: Laboratory Results - last 24 hr 04/02/22 05:41: Diff Path Review Reviewed Microbiology: Microbiology 04/02/22 Unknown Stool Enteric Bacteriology - Final 04/02/22 Unknown Stool Stool Lactoferrin - Final 03/31/22 15:30 Stool Stool Occult Blood (ANEUDY) - Final Occult Blood Positive Radiography Diagnostic Testing: Radiology Impression Abdomen X-Ray 04/02/22 10:53 IMPRESSION: Nonobstructive bowel gas pattern. Electronically Signed: Ji Harvey MD (Brooks) at 14:12 EDT , D/C Instructions Discharge Diet: - (Left AMA prior to me seeing him and giving him DC instructions or Prescriptions. ) Meaningful Use Info Meaningful Use Diagnoses (Choose all that apply): None applicable Discharge Plan Admission Admit Date/Time: 03/29/22 17:35 Attending Provider: Kenroy Faustin Chi Primary Care Provider: Ziyad Ruvalcaba Discharge Orders/Prescriptions Prescriptions: No Action clopidogrel 75 MG tablet 75 mg PO DAILY RF: 0 hydrocodone-acetaminophen 1 EACH tablet 1 tab PO DAILY PRN (Reason: Back Pain) RF: 0 pravastatin 20 MG tablet 80 mg PO QHS RF: 0 albuterol sulfate [Ventolin HFA] 1 INHALER inhaler 2 puff inhalation PRN PRN (Reason: Shortness Of Breath) RF: 0 lisinopril 10 mg tablet 10 mg PO BID RF: 0 aspirin 81 mg Tablet 81 mg PO DAILY RF: 0 metoprolol tartrate 50 mg tablet 75 mg PO BID RF: 0 amoxicillin-pot clavulanate [Augmentin] 500-125 mg tablet 1 tab PO BID RF: 0 Referrals / Follow Up: Ziyad Ruvalcaba MD [Primary Care Provider] - Disposition Disposition (needs filled in before D/C Order can be placed): Against Medical Advice Charges/Coding Visit Charges Inpatient E&M: [address] [facility] Disch
[2022-04-03 13:03] LABS: PTHIN 11.6 pg/mL (18.4-80.1)
[2022-04-04 08:30] LABS: Carcinoembryonic Antigen 2139 2.2 ng/mL (0.0-4.7)
[2022-04-04 22:31] LABS: Giardia Lamblia, Stool EIA Negative (Negative)
--- NOTE | 2022-04-09 13:18 | MDS.RN ---
Information for the mds was obtained from review of the clinical record, interview of resident, staff, and direct observation of resident's care.
== END 2022-04-03 09:25 | disposition left against medical advice (07) | DRG 391 ==
PROVIDERS: Internal Medicine; Admitting Provider Family Medicine Geriatric Medicine; PCP Family Medicine; Visit Provider Family Medicine Geriatric Medicine
DX: K57.32 Diverticulitis of large intestine without perforation or abscess without bleeding (principal); E43 Unspecified severe protein-calorie malnutrition; C18.7 Malignant neoplasm of sigmoid colon; E11.42 Type 2 diabetes mellitus with diabetic polyneuropathy; E11.51 Type 2 diabetes mellitus with diabetic peripheral angiopathy without gangrene; D64.9 Anemia, unspecified; I48.91 Unspecified atrial fibrillation; J44.9 Chronic obstructive pulmonary disease, unspecified; E78.5 Hyperlipidemia, unspecified; I10 Essential (primary) hypertension; I25.10 Atherosclerotic heart disease of native coronary artery without angina pectoris; K22.70 Barrett's esophagus without dysplasia; Z79.82 Long term (current) use of aspirin; Z20.822 Contact with and (suspected) exposure to COVID-19; Z87.891 Personal history of nicotine dependence; Z79.02 Long term (current) use of antithrombotics/antiplatelets; Z79.899 Other long term (current) drug therapy; Z57.4 Occupational exposure to toxic agents in agriculture
CPT/HCPCS: 36415; 73030; 74019; 80048; 82040; 82274; 82378; 82962; 83036; 83630; 83735; 83970; 84100; 85025; 87177; 87209; 87329; 87506; 92507; 92523; 93005; 97110; 97116; 97162; 97166; 97530; 97535; 97802; J7030

== ENCOUNTER 2022-03-29 22:41 | Emergency (ER) | payer OTHER, MEDICARE, SELFPAY ==
[2022-03-29 22:43] VITALS: BP 186/69; PULSE 59; RESP 17; TEMP 36.3; O2SAT 98; BMI 30.9
[2022-03-29 22:46] VITALS: BP 194/74; PULSE 55; RESP 26; O2SAT 98
--- NOTE | 2022-03-29 22:48 | CT_ITS ---
EXAM: CT CERVICAL SPINE WITHOUT INTRAVENOUS CONTRAST CLINICAL INDICATION: polytrauma TECHNIQUE: Helically acquired images were obtained of the cervical spine without intravenous contrast. 2D reformatted images were reviewed. This CT exam was performed using one or more of the following dose reduction techniques: automated exposure control, adjustment of the mA and/or kV according to patient size, and/or use of iterative reconstruction technique. This report was created using [employer] report generation technology. COMPARISON: None. FINDINGS: VERTEBRAE: Unremarkable. No fracture. No traumatic subluxation. No discrete lytic or blastic abnormality. Normal alignment. Normal craniocervical junction and cervicothoracic junction. DISCS/SPINAL CANAL/NEURAL FORAMINA: Degenerative changes of the intervertebral discs. No critical stenosis. SOFT TISSUES: Unremarkable. No prevertebral soft tissue swelling. VASCULATURE: Carotid artery calcifications. LYMPH NODES: Unremarkable. No cervical adenopathy. LUNG APICES: Unremarkable as visualized. Clear. CT/Spine Cervical without Contras IMPRESSION: 1. No acute injuries identified involving the cervical spine. 2. Degenerative changes. Electronically Signed: Mauri Espinosa MD at 0:28 EDT ,
--- NOTE | 2022-03-29 22:48 | CT_ITS ---
EXAM: CT HEAD WITHOUT INTRAVENOUS CONTRAST CLINICAL INDICATION: head injury TECHNIQUE: Multiple axial images were obtained of the head without intravenous contrast. This CT exam was performed using one or more of the following dose reduction techniques: automated exposure control, adjustment of the mA and/or kV according to patient size, and/or use of iterative reconstruction technique. This report was created using [employer] report generation technology. COMPARISON: None. FINDINGS: BRAIN AND EXTRA-AXIAL SPACES: Diffuse cerebral volume loss. Periventricular small vessel ischemic changes. No intra- or extra-axial hemorrhage. No intracranial mass or mass effect. Posterior fossa structures are unremarkable. No hydrocephalus. Basal cisterns are patent. BONES/JOINTS: Unremarkable. No discrete lytic or blastic abnormalities. VASCULATURE: Vascular calcifications. SINUSES: Unremarkable as visualized. Clear. MASTOID AIR CELLS: Unremarkable. Clear. ORBITS: Visualized globes, extraocular muscles, optic nerves and retrobulbar fat appear unremarkable. CT/Brain/Head without Contrast IMPRESSION: 1. No acute intracranial abnormalities. 2. Age-related changes. Electronically Signed: Mauri Espinosa MD at 0:20 EDT ,
--- NOTE | 2022-03-29 22:49 | EDS_ITS ---
HPI HPI - Fall History of Present Illness Chief Complaint: Fall Informant: patient Narrative Narrative: Patient sent down from TCU unwitnessed fall out of bed. Patient was asleep rolled off the bed hitting the ground. Pain her right ear. He does take aspirin and Plavix. Patient has been doing therapy ambulating with a walker with assistance. Denies headache nausea or vomiting. No extremity pain or paresthesias. No chest pains no back pain. No abdominal pain. Reviewing records discharged to TCU today from the hospital after 2-day stay. Weakness BLAYNE being treated for sigmoid diverticulitis. There is concerns for potential sigmoid mass which she is referred to colorectal surgery over at [facility]. [facility] Medical History Agent orange exposure Anemia Atherosclerosis of coronary artery of [place] heart without angina pectoris Carotid stenosis Chronic fatigue disorder COPD (chronic obstructive pulmonary disease) Esophagitis Hyperlipidemia Hypertension Non-rheumatic tricuspid valve insufficiency Nonrheumatic aortic valve insufficiency Osteoporosis Peripheral vascular occlusive disease Restless legs Sleep apnea Thrombocytopenia Tubular adenoma polyp of rectum Type 2 diabetes mellitus without complications Home Medications albuterol sulfate [Ventolin HFA] 2 puff INHALATION PRN PRN 08/23/14 [History Last Taken 03/24/22] clopidogrel 75 mg PO DAILY 08/23/14 [History Last Taken 03/25/22] hydrocodone-acetaminophen 1 tab PO DAILY PRN 08/23/14 [History Last Taken 03/25/22] pravastatin 80 mg PO QHS 08/23/14 [History Last Taken 03/25/22] aspirin 81 mg PO DAILY 09/08/21 [History Last Taken 03/25/22] lisinopril 10 mg PO BID 09/08/21 [History Last Taken 03/25/22] amoxicillin-pot clavulanate [Augmentin] 1 tab PO BID 03/29/22 [History Last Taken Unknown] metoprolol tartrate 75 mg PO BID 03/29/22 [History Last Taken Unknown] Allergy/AdvReac Type Severity Reaction Status Date / Time acetaminophen Allergy Unknown Unknown Verified 03/29/22 22:43 [From Darvocet-N] amitriptyline HCl Allergy Unknown Unknown Verified 03/29/22 22:43 [From Elavil] atorvastatin calcium Allergy Unknown Unknown Verified 03/29/22 22:43 [From Lipitor] azithromycin [From Zithromax] Allergy Unknown Unknown Verified 03/29/22 22:43 cefaclor [Cefaclor] Allergy Unknown Unknown Verified 03/29/22 22:43 ciprofloxacin [From Cipro] Allergy Unknown Unknown Verified 03/29/22 22:43 ciprofloxacin HCl Allergy Unknown Unknown Verified 03/29/22 22:43 [From Cipro] hydroxyzine HCl [From Atarax] Allergy Unknown Unknown Verified 03/29/22 22:43 influenza virus vaccine, Allergy Unknown Unknown Verified 03/29/22 22:43 specific [Influenza Virus Vacc,Specific] iodine Allergy Unknown Unknown Verified 03/29/22 22:43 latex Allergy Unknown Unknown Verified 03/29/22 22:43 levofloxacin [From Levaquin] Allergy Unknown Unknown Verified 03/29/22 22:43 lidocaine Allergy Unknown Unknown Verified 03/29/22 22:43 lovastatin Allergy Unknown Unknown Verified 03/29/22 22:43 niacin Allergy Unknown Unknown Verified 03/29/22 22:43 Penicillins Allergy Unknown Unknown Verified 03/29/22 22:43 pneumococcal vaccine Allergy Unknown Unknown Verified 03/29/22 22:43 [Pneumococcal Vaccine] propoxyphene napsylate Allergy Unknown Unknown Verified 03/29/22 22:43 [From Darvocet-N] quinapril HCl [From Accupril] Allergy Unknown Unknown Verified 03/29/22 22:43 red dye Allergy Unknown Unknown Verified 03/29/22 22:43 rosuvastatin calcium Allergy Unknown Unknown Verified 03/29/22 22:43 [From Crestor] simvastatin Allergy Unknown Unknown Verified 03/29/22 22:43 Sulfa (Sulfonamide Allergy Unknown Unknown Verified 03/29/22 22:43 Antibiotics) Tetanus Vaccines and Toxoid Allergy Unknown Unknown Verified 03/29/22 22:43 [Tetanus Vaccines & Toxoid] tetracycline [Tetracycline] Allergy Unknown Unknown Verified 03/29/22 22:43 yellow dye Allergy Unknown Unknown Verified 03/29/22 22:43 fentanyl Allergy Unknown Verified 03/29/22 22:43 hydrochlorothiazide Allergy Unknown Verified 03/29/22 22:43 CREATINE MONOHYDRATE Allergy Unknown Unknown Uncoded 03/29/22 22:43 Family History Father CAD (coronary artery disease) Mother CAD (coronary artery disease) Cancer Brother CAD (coronary artery disease) Surgical History History of coronary artery stent placement (~01/05/03) History of right and left heart catheterization (~02/18/15) Social History household members: spouse Smoking Status: Former smoker quit date: 11/04/07 alcohol intake: never substance use type: does not use ROS ROS ED Constitutional Constitutional ED: Denies chills, fever(s) or sweats Eyes Eyes: Denies change in vision ENT ENT ED: Reports other Details: Right ear pain ; Denies dysphagia or sore throat Cardiovascular Cardiovascular: Denies chest pain, leg edema, palpitations or racing heartbeat Respiratory/Chest Respiratory/Chest: Denies cough, dyspnea or dyspnea on exertion Gastrointestinal Gastrointestinal: Denies abdominal pain, diarrhea, nausea or vomiting Genitourinary Genitourinary ED: Denies dysuria, hematuria or urinary frequency Musculoskeletal Musculoskeletal: Denies back pain, extremity pain or neck pain Integumentary Denies rash or wounds Neurologic Neurologic: Denies headache(s), paresthesias or weakness EXAM Physical Exam Const Vital Signs: 03/29/22 22:43 03/29/22 22:46 Temperature 97.3 F L Temperature Source Temporal Pulse Rate 59 L 55 L Respiratory Rate 17 26 H Respiratory Effort Normal Respiratory Depth Normal Respiratory Pattern Normal Blood Pressure 186/69 H 194/74 H Blood Pressure Mean 108 114 Pulse Ox 98 98 Oxygen Delivery Method Room Air Room Air Positive well nourished and well developed Constitutional Narrative: GCS 15 General Appearance ED: well developed and NAD HEENT Reports moist mucous membranes HEENT Narrative: Slight bruising noted right ear outer auricle upper region. There is no lacerations. No swelling. No hemotympanums bilaterally. No facial bone tenderness. normocephalic Eyes PERRL, EOMs intact bilaterally and conjunctivae normal General Eye ED: Yes normal appearance of both eyes Neck no lymphadenopathy and supple General: Negative for tenderness Chest Wall Chest: Negative for tenderness Resp normal respiratory effort and normal air movement Effort and Inspection: symmetric chest movement; Negative for respiratory distress Cardio regular rate, regular rhythm and no murmurs Peripheral Pulses: pulses 2+ throughout GI normal to inspection, nondistended, normoactive bowel sounds and non-tender Palpation: Negative for guarding or rebound tenderness present Back/Spine no CVA tenderness and no thoracic nor lumbar tenderness Back/Spine Narrative: No midline thoracic or lumbar tenderness no step-offs. No ecchymosis. Extremity normal to inspection Extremity Narrative: Bilateral upper extremity movements without pain no deformities neurovascular intact. Lower extremity: Negative logroll bilaterally. No deformities neurovascular intact distally. General Extremety ED: Negative for edema or tenderness General Extremity: Negative for edema Neuro oriented x3 and no sensory deficits noted Sensorium / Orientation: awake and alert Skin no rashes or lesions noted and no wounds MDM MDM MDM Narrative Medical decision making narrative: AcutePatient primary complaint right ear denied headache. Patient on antiplatelets with head injury. Trauma scans head and neck obtained shows no acute process. On reevaluation bruising appeared on the right wrist and noted on the right knee tenderness on palpation. There is no lacerations. X-rays obtained of the right wrist and right knee for further evaluation. 0130: 3 view right wrist, 4 view right knee reviewed by myself and read by radiology process. Patient discharged back to TCU. Radiography Diagnostic Testing: Clinical Impression(s) from Imaging Studies Brain CT 03/29/22 22:48 IMPRESSION: 1. No acute intracranial abnormalities. 2. Age-related changes. Electronically Signed: Mauri Espinosa MD at 0:20 EDT Reading Location ID and State: [facility] / [place] Tel , Service support , Cervical Spine CT 03/29/22 22:48 IMPRESSION: 1. No acute injuries identified involving the cervical spine. 2. Degenerative changes. Electronically Signed: Mauri Espinosa MD at 0:28 EDT , Wrist X-Ray 03/30/22 00:39 IMPRESSION: Negative right wrist x-rays. Electronically Signed: Mauri Espinosa MD at 1:18 EDT , Knee X-Ray 03/30/22 00:55 IMPRESSION: No acute findings in the right knee. Electronically Signed: Mauri Espinosa MD at 1:31 EDT Reading Location ID and State: [facility] / [place] Tel , Service support , Discharge Plan Triage Chief Complaint: Fall ED Provider: Josue Crump Dx/Rx/DC Orders Clinical Impression: CHI (closed head injury), Fall, Contusion of auricle of right ear, Contusion of right wrist, initial encounter, Contusion of knee, right Instructions: Bruises (Contusions), ED Head Injury (Adult) Prescriptions: No Action clopidogrel 75 MG tablet 75 mg PO DAILY RF: 0 hydrocodone-acetaminophen 1 EACH tablet 1 tab PO DAILY PRN (Reason: Back Pain) RF: 0 pravastatin 20 MG tablet 80 mg PO QHS RF: 0 albuterol sulfate [Ventolin HFA] 1 INHALER inhaler 2 puff inhalation PRN PRN (Reason: Shortness Of Breath) RF: 0 lisinopril 10 mg tablet 10 mg PO BID RF: 0 aspirin 81 mg Tablet 81 mg PO DAILY RF: 0 metoprolol tartrate 50 mg tablet 75 mg PO BID RF: 0 amoxicillin-pot clavulanate [Augmentin] 500-125 mg tablet 1 tab PO BID RF: 0 Primary Care Provider: Ziyad Ruvalcaba Referrals: Ziyad Ruvalcaba MD [Primary Care Provider] - 3-5 Days Activity Restrictions/Additional Instructions: CT head and neck negative. X-ray of right wrist and right knee negative. Disposition Disposition: Half-Way Facility Discharge Location: [facility] Transitional Care Unit
--- NOTE | 2022-03-30 00:39 | RAD_ITS ---
EXAM: XR RIGHT WRIST COMPLETE, 3 OR MORE VIEWS CLINICAL INDICATION: injury TECHNIQUE: Frontal, lateral and oblique views of the right wrist. This report was created using [employer] report generation technology. COMPARISON: None. FINDINGS: BONES/JOINTS: Unremarkable. No acute fracture. No subluxation. Normal alignment. Preservation of the joint space. No sclerotic or destructive changes observed. SOFT TISSUES: Unremarkable. No soft tissue swelling or gas. No radiopaque foreign body. RAD/Wrist min 3 Views IMPRESSION: Negative right wrist x-rays. Electronically Signed: Mauri Espinosa MD at 1:18 EDT ,
--- NOTE | 2022-03-30 00:55 | RAD_ITS ---
EXAM: XR RIGHT KNEE COMPLETE, 4 OR MORE VIEWS CLINICAL INDICATION: injury TECHNIQUE: Four or more views of the right knee. This report was created using [employer] report generation technology. COMPARISON: None. FINDINGS: BONES/JOINTS: Unremarkable. No acute fracture. No subluxation. Normal alignment. Preservation of the joint space. No sclerotic or destructive changes observed. SOFT TISSUES: Unremarkable. No soft tissue swelling or gas. No radiopaque foreign body. VASCULATURE: Arterial calcifications. RAD/Knee 4 or More Views IMPRESSION: No acute findings in the right knee. Electronically Signed: Mauri Espinosa MD at 1:31 EDT ,
== END 2022-03-30 02:08 | disposition skilled nursing facility (03) ==
PROVIDERS: Emergency Provider Emergency Medicine; PCP Family Medicine; Visit Provider Emergency Medicine
DX: S80.01XA Contusion of right knee, initial encounter (principal); J44.9 Chronic obstructive pulmonary disease, unspecified; E11.9 Type 2 diabetes mellitus without complications; Z87.891 Personal history of nicotine dependence; I25.10 Atherosclerotic heart disease of native coronary artery without angina pectoris; H92.01 Otalgia, right ear; E78.5 Hyperlipidemia, unspecified; I10 Essential (primary) hypertension; S60.211A Contusion of right wrist, initial encounter; W19.XXXA Unspecified fall, initial encounter; S00.431A Contusion of right ear, initial encounter; K57.32 Diverticulitis of large intestine without perforation or abscess without bleeding; S09.90XA Unspecified injury of head, initial encounter
CPT/HCPCS: 70450; 72125; 73110; 73564; 99282

== ENCOUNTER 2022-04-09 10:07 | Observation (INO) | payer OTHER, MEDICARE, SELFPAY ==
[2022-04-09] VITALS (10 sets, daily range): BP systolic 133–197; BP diastolic 57–96; PULSE 61–83; RESP 12–20; TEMP 35.9–36.8; O2SAT 96–99; BMI 28.8; BMI 28.1
--- NOTE | 2022-04-09 10:59 | EKG12_ITS ---
Test Reason : WEAKNESS Blood Pressure : / mmHG Vent. Rate : 060 BPM Atrial Rate : 060 BPM P-R Int : 178 ms QRS Dur : 082 ms QT Int : 400 ms P-R-T Axes : 064 014 029 degrees QTc Int : 400 ms Normal sinus rhythm Low voltage QRS (Limb Leads) Confirmed by BRIANNA GUERRERO, NILES ([id number]), medical transcription editor DANNA MILAN ([id number]) on 04/10/2022 1:43:17 PM Referred By: KRISTAN Confirmed By:NILES REED MD
--- NOTE | 2022-04-09 11:00 | EDS_ITS ---
HPI History of Present Illness Chief Complaint: Weakness Informant: patient Onset/Context/Timing Onset: Weeks (1+) Narrative Narrative: Patient states he is too weak to get out of a chair and get around, he states he was let go from TCU too early, and I am getting worse around 9 days ago. He states he has had diarrhea less than 5 times per day nonbloody for the past week, but his medical chart indicates that he has chronic diarrhea. States he has colon cancer, not undergoing treatment right now, has had no cancer surgery for it, and states that he is not a DNR. He denies any fevers, chills, he has chronic pain in his low back that is unchanged and no abdominal or chest pain. No cough or shortness of breath. No palpitations or lightheadedness. He has not been drinking fluids because he cannot get up and does not want to soil himself. 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 Osteoporosis Peripheral vascular disease Peripheral vascular occlusive disease Restless legs Sleep apnea Thrombocytopenia Tubular adenoma polyp of rectum Type 2 diabetes mellitus without complications Home Medications albuterol sulfate [Ventolin HFA] 2 puff INHALATION PRN PRN 08/23/14 [History Last Taken 03/24/22] clopidogrel 75 mg PO DAILY 08/23/14 [History Last Taken 03/25/22] hydrocodone-acetaminophen 1 tab PO DAILY PRN 08/23/14 [History Last Taken 03/25/22] pravastatin 80 mg PO QHS 08/23/14 [History Last Taken 03/25/22] aspirin 81 mg PO DAILY 09/08/21 [History Last Taken 03/25/22] lisinopril 10 mg PO BID 09/08/21 [History Last Taken 03/25/22] metoprolol tartrate 75 mg PO BID 03/29/22 [History Last Taken Unknown] Allergy/AdvReac Type Severity Reaction Status Date / Time acetaminophen Allergy Unknown Unknown Verified 04/09/22 10:07 [From Darvocet-N] amitriptyline HCl Allergy Unknown Unknown Verified 04/09/22 10:07 [From Elavil] atorvastatin calcium Allergy Unknown Unknown Verified 04/09/22 10:07 [From Lipitor] azithromycin [From Zithromax] Allergy Unknown Unknown Verified 04/09/22 10:07 cefaclor [Cefaclor] Allergy Unknown Unknown Verified 04/09/22 10:07 ciprofloxacin [From Cipro] Allergy Unknown Unknown Verified 04/09/22 10:07 ciprofloxacin HCl Allergy Unknown Unknown Verified 04/09/22 10:07 [From Cipro] hydroxyzine HCl [From Atarax] Allergy Unknown Unknown Verified 04/09/22 10:07 influenza virus vaccine, Allergy Unknown Unknown Verified 04/09/22 10:07 specific [Influenza Virus Vacc,Specific] iodine Allergy Unknown Unknown Verified 04/09/22 10:07 latex Allergy Unknown Unknown Verified 04/09/22 10:07 levofloxacin [From Levaquin] Allergy Unknown Unknown Verified 04/09/22 10:07 lidocaine Allergy Unknown Unknown Verified 04/09/22 10:07 lovastatin Allergy Unknown Unknown Verified 04/09/22 10:07 niacin Allergy Unknown Unknown Verified 04/09/22 10:07 Penicillins Allergy Unknown Unknown Verified 04/09/22 10:07 pneumococcal vaccine Allergy Unknown Unknown Verified 04/09/22 10:07 [Pneumococcal Vaccine] propoxyphene napsylate Allergy Unknown Unknown Verified 04/09/22 10:07 [From Darvocet-N] quinapril HCl [From Accupril] Allergy Unknown Unknown Verified 04/09/22 10:07 red dye Allergy Unknown Unknown Verified 04/09/22 10:07 rosuvastatin calcium Allergy Unknown Unknown Verified 04/09/22 10:07 [From Crestor] simvastatin Allergy Unknown Unknown Verified 04/09/22 10:07 Sulfa (Sulfonamide Allergy Unknown Unknown Verified 04/09/22 10:07 Antibiotics) Tetanus Vaccines and Toxoid Allergy Unknown Unknown Verified 04/09/22 10:07 [Tetanus Vaccines & Toxoid] tetracycline [Tetracycline] Allergy Unknown Unknown Verified 04/09/22 10:07 yellow dye Allergy Unknown Unknown Verified 04/09/22 10:07 fentanyl Allergy Unknown Verified 04/09/22 10:07 hydrochlorothiazide Allergy Unknown Verified 04/09/22 10:07 CREATINE MONOHYDRATE Allergy Unknown Unknown Uncoded 04/09/22 10:07 Family History Father CAD (coronary artery disease) Mother CAD (coronary artery disease) Cancer Brother CAD (coronary artery disease) Surgical History History of coronary artery stent placement (~01/05/03) History of right and left heart catheterization (~02/18/15) Social History household members: spouse Smoking Status: Former smoker quit date: 11/04/07 alcohol intake: never substance use type: does not use ROS ROS ED Constitutional Constitutional ED: Reports fatigue and malaise; Denies chills, fever(s) or headache(s) Eyes Eyes: Denies change in vision or diplopia ENT ENT ED: Denies rhinorrhea or sore throat Cardiovascular Cardiovascular: Denies chest pain or palpitations Respiratory/Chest Respiratory/Chest: Denies cough or dyspnea Gastrointestinal Gastrointestinal: Reports diarrhea; Denies abdominal pain, hematochezia, melena, nausea or vomiting Genitourinary Genitourinary ED: Denies dysuria or hematuria Musculoskeletal Musculoskeletal: Reports back pain; Denies neck pain Integumentary Denies abscess or rash Neurologic Neurologic: Denies headache(s), paresthesias or weakness Psychiatric Psychiatric: Denies anxiety or suicidal thoughts EXAM Physical Exam Const Vital Signs: 04/09/22 10:11 04/09/22 11:01 04/09/22 11:48 Temperature 96.6 F L Temperature Source Temporal Pulse Rate 64 61 Respiratory Rate 18 12 Respiratory Effort Normal Non-Labored Blood Pressure 197/70 H 187/64 H Blood Pressure Mean 112 105 Pulse Ox 97 98 Oxygen Delivery Method Room Air Room Air 04/09/22 13:55 04/09/22 14:20 Temperature Temperature Source Pulse Rate 67 64 Respiratory Rate 20 H 20 H Respiratory Effort Blood Pressure 180/66 H 183/96 H Blood Pressure Mean 104 125 Pulse Ox 98 98 Oxygen Delivery Method Room Air Room Air Positive well nourished and well developed General Appearance ED: well developed and NAD HEENT Reports dry mucous membranes normocephalic and atraumatic Mouth ED: Yes dry mucous membranes Mouth: dry mucous membranes Throat: posterior oropharynx normal Eyes PERRL and EOMs intact bilaterally Neck full ROM and supple Resp normal respiratory effort and clear to auscultation bilaterally Cardio regular rate, regular rhythm and no murmurs GI non-tender and non-distended Auscultation: normoactive bowel sounds Palpation: soft Back/Spine no CVA tenderness General Back: other FROM Extremity normal to inspection General Extremety ED: Negative for edema, pulses abnormal or tenderness General Extremity: Negative for edema or pulses abnormal Neuro oriented x3, CN's II-XII intact bilaterally and no sensory deficits noted Sensorium / Orientation: awake and alert Motor Exam: strength 5/5 throughout Skin no rashes or lesions noted and no wounds MDM MDM MDM Narrative Medical decision making narrative: Due to the patient's starvation ketosis and lack of taking in food and fluids, he was given a liter of IV fluid while we performed a work-up, it surprisingly does not show any significant prerenal azotemia, or anything else acute for that matter. I then added a TSH came back normal, I do not have a great medical reason for the patient's acute weakness, however he states he is not able to function or get out of bed and is lying at home and in need of further care so the plan will be to admit him to observation under hospitalist service. We kept an eye on his blood pressure, did not come down with treatment with fluids, so I am adding a dose of hydralazine since he is borderline bradycardic and does not appear to have a history of aortic stenosis. Lab Data Attestation: I reviewed the patient's lab results. Labs: Laboratory Results - last 24 hr 04/09/22 04/09/22 04/09/22 10:45 10:45 10:45 WBC 8.8 RBC 3.90 L Hgb 11.4 L Hct 35.7 L MCV 91.5 MCH 29.2 MCHC 31.9 L RDW Std Deviation 45.4 H RDW Coeff of Tracie 13.6 Plt Count 251 MPV 10.9 Immature Gran % (Auto) 1.200 H Neut % (Auto) 66.3 Lymph % (Auto) 12.1 L [place] % (Auto) 9.2 Eos % (Auto) 10.9 H Baso % (Auto) 0.3 Absolute Neuts (auto) 5.9 Absolute Lymphs (auto) 1.07 Nucleated RBC % 0 Sodium 139 Potassium 4.8 Chloride 104 Carbon Dioxide 23.0 Anion Gap 12 BUN 16 Creatinine 0.97 Estim Creat Clear Calc 73.33 Est GFR (MDRD) Af Amer 97 Est GFR (MDRD) Non-Af 81 BUN/Creatinine Ratio 16.5 Glucose 74 Calcium 10.8 H Total Bilirubin 0.50 AST 29 ALT 27 Alkaline Phosphatase 46 Troponin I High Sens 28 Total Protein 6.6 Albumin 3.3 Globulin 3.3 Albumin/Globulin Ratio 1.0 TSH 2.21 Urine Color Urine Clarity Urine pH Ur Specific [place] Urine Protein Urine Glucose (UA) Urine Ketones Urine Occult Blood Urine Nitrite Urine Bilirubin Urine Urobilinogen Ur Leukocyte Esterase Urine RBC Urine WBC Ur Squamous Epith Cells Urine Bacteria Urine Mucus 04/09/22 13:36 WBC RBC Hgb Hct MCV MCH MCHC RDW Std Deviation RDW Coeff of Tracie Plt Count MPV Immature Gran % (Auto) Neut % (Auto) Lymph % (Auto) [place] % (Auto) Eos % (Auto) Baso % (Auto) Absolute Neuts (auto) Absolute Lymphs (auto) Nucleated RBC % Sodium Potassium Chloride Carbon Dioxide Anion Gap BUN Creatinine Estim Creat Clear Calc Est GFR (MDRD) Af Amer Est GFR (MDRD) Non-Af BUN/Creatinine Ratio Glucose Calcium Total Bilirubin AST ALT Alkaline Phosphatase Troponin I High Sens Total Protein Albumin Globulin Albumin/Globulin Ratio TSH Urine Color Yellow Urine Clarity Clear Urine pH 6.0 Ur Specific [place] 1.020 Urine Protein Negative Urine Glucose (UA) Normal Urine Ketones 150 A* Urine Occult Blood Negative Urine Nitrite Negative Urine Bilirubin Negative Urine Urobilinogen Normal Ur Leukocyte Esterase Negative Urine RBC 0 SEEN Urine WBC 0 SEEN Ur Squamous Epith Cells 0 SEEN Urine Bacteria 0 SEEN Urine Mucus 0 SEEN Radiography Chest X-Ray - ED: 1 View, Read by ED Physician and No Acute Disease Diagnostic Testing: Clinical Impression(s) from Imaging Studies Chest X-Ray 04/09/22 11:30 IMPRESSION: Normal x-ray examination of the chest. Electronically Signed: Germán Rios MD at 11:46 EDT , Rhythm Strip Rhythm Strip: Sinus Rhythm Rate: 60 Ectopy: None EKG Initial EKG: Attestation: I personally reviewed and interpreted this EKG as follows: Interpretation: Sinus Rhythm and No Acute Injury Pattern Comments: normal EKG Discharge Plan Dx/Rx/DC Orders Clinical Impression: Chronic diarrhea, Generalized weakness, Declining functional status, Accelerated hypertension Disposition Disposition: Acute Care Hospital [facility]
[2022-04-09 11:16] LABS: Absolute Lymphocyte Count 1.07 X10^3/uL (0.83-4.51); Absolute Neutrophil Count 5.9 X10^3/uL (2.0-7.7); Basophil# 0.03 X10^3/uL; Basophil% 0.3 % (0-1); Eosinophil# 0.96 X10^3/uL; Eosinophils% 10.9 % (0-5); Hematocrit 35.7 % (40-54); Hemoglobin 11.4 g/dL (13.0-16.5); Lymphocyte # 1.07 X10^3/ul (0.83-4.51); Lymphocyte % 12.1 % (19-41); Mean Corp Hgb Conc 31.9 g/dL (32-36); Mean Corpuscular Hgb 29.2 pg (27.0-32.0); Mean Corpuscular Volume 91.5 fL (80-94); Mean Platelet Vol. 10.9 fl (6.2-12.0); Monocyte# 0.81 X10^3/uL; Monocyte% 9.2 % (0-10); NRBC Flagged by Analyzer 0 % (0-5); Neutrophil # 5.85 X10^3/uL (2.7-7.7); Neutrophil % 66.3 % (47-70); Platelet Count 251 K/mm3 (150-450); RBC Distribution Width CV 13.6 % (11.6-14.6); RBC Distribution Width SD 45.4 fl (35.1-43.9); White Blood Count 8.8 K/mm3 (4.4-11.0)
--- NOTE | 2022-04-09 11:30 | RAD_ITS ---
STUDY: X-RAY CHEST REASON FOR EXAM: Male, 72 years old. weakness TECHNIQUE: Single AP portable view of the chest. COMPARISON: 03/27/2022 FINDINGS: The lungs are clear and expanded. There is no demonstrated pleural abnormality. Normal size heart. Normal mediastinum and angel. Normal visualized pulmonary arteries. Normal visualized aortic arch and descending thoracic aorta. Normal visualized thoracic spine. Normal visualized ribs, clavicles, and shoulders. There is no demonstrated abnormality of the visualized soft tissue structures of the upper abdomen. RAD/Chest 1 View (Portable) IMPRESSION: Normal x-ray examination of the chest. Electronically Signed: Germán Rios MD at 11:46 EDT ,
[2022-04-09 11:31] LABS: AST(SGOT) 29 U/L (15-37); Alanine Aminotransfer ALT/SGPT 27 U/L (16-61); Albumin, Serum 3.3 g/dL (3.2-5.0); Alkaline Phosphatase 46 U/L (45-117); Anion Gap 12 (5-15); BUN 16 mg/dL (7-18); BUN/Creat Ratio 16.5 RATIO (10-20); Calcium,Total 10.8 mg/dL (8.5-10.1); Chloride 104 mmol/L (98-107); Creatinine, Serum 0.97 mg/dL (0.70-1.30); EST Glomerular Filtration Rate 81 mL/min (>60); Est Glom Filt Rate - Afr Amer 97 mL/min (>60); Estimated Creatinine Clearance 73.33 ml/min; Globulin 3.3 g/dL (2.2-4.2); Glucose 74 mg/dL (74-106); Potassium 4.8 mmol/L (3.5-5.1); Protein, Total 6.6 g/dL (6.4-8.2); Sodium Level 139 mmol/L (136-145); Troponin-I HS 28 pg/mL (3.0-78.0)
[2022-04-09] MEDS: 0.9% Normal Saline 1,000 ML 250 ML IV ×3 (11:32→22:22)
[2022-04-09] MEDS: Acetaminophen 325 MG Tablet 650 MG PO (13:28)
[2022-04-09 14:02] LABS: Bacteria 0 SEEN /hpf (None Seen); Mucous, Urine 0 SEEN /hpf (<or=2+); Red Blood Cells-Urine 0 SEEN /hpf (0-5); Squamous Epithelial Cells - UA 0 SEEN /hpf (0-5); White Blood Cells 0 SEEN /hpf (0-5)
[2022-04-09 14:07] LABS: Color, Urine Yellow (Yellow); Glucose, Dipstick Normal (Normal); Leukocyte Esterase-Dipstick Negative /ul (Negative); Nitrite-Dipstick Negative (Negative); Occult Blood-Urine Negative /ul (Negative); Protein-Dipstick Negative (Negative); Urine Bilirubin Dipstick Negative (Negative); Urine Clarity Clear (Clear); Urine Urobilinogen Normal (Normal)
[2022-04-09 14:14] LABS: Ketone-Dipstick 150 mg/dl (Negative)
[2022-04-09 14:47] LABS: Thyroid Stim Hormone (TSH) 2.21 uIU/mL (0.358-3.74)
--- NOTE | 2022-04-09 14:56 | HP.PCM.HOS_ITS ---
HPI - General General Date of Admission: 04/09/22 HPI Narrative GIANA TANG, is a 72 M with a PMH as outlined who presents via the ED with a complaint of weakness. He was admitted with a complaint of weakness, and was in TCU. He was discharged 9 days ago, and said he had been gettiing weaker since then. HE says he has chronic diarrhea, and has been refusing to eat or drink because it made him have worsening of his diarrhea. He denied any fever, chills, nausea, vomiting or any urinary symptoms. REview of systems is otherwise negative. He said he had a history of colon cancer, but says he hasnt any treatment for it. Vitals in the ED were BP of 183/96, AZ of 64, RR of 20 and he was saturating at 98% on room air. CBC showed Hb of 11.4, wbc of 8.8, platelets of 251. Chemistry was essentially unremarkable apart from Calcium of 10.8. Urinalysis showed ketones of 150. CXR showed no acute cardiopulmonary process. He is being admitted to be managed for debility and weakness of unclear etiology. 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 Osteoporosis Peripheral vascular disease Peripheral vascular occlusive disease Restless legs Sleep apnea Thrombocytopenia Tubular adenoma polyp of rectum Type 2 diabetes mellitus without complications Home Medications albuterol sulfate [Ventolin HFA] 2 puff INHALATION PRN PRN 08/23/14 [History Last Taken 03/24/22] clopidogrel 75 mg PO DAILY 08/23/14 [History Last Taken 03/25/22] hydrocodone-acetaminophen 1 tab PO DAILY PRN 08/23/14 [History Last Taken 03/25/22] pravastatin 80 mg PO QHS 08/23/14 [History Last Taken 03/25/22] aspirin 81 mg PO DAILY 09/08/21 [History Last Taken 03/25/22] lisinopril 10 mg PO BID 09/08/21 [History Last Taken 03/25/22] metoprolol tartrate 75 mg PO BID 03/29/22 [History Last Taken Unknown] Allergy/AdvReac Type Severity Reaction Status Date / Time acetaminophen Allergy Unknown Unknown Verified 04/09/22 10:07 [From Darvocet-N] amitriptyline HCl Allergy Unknown Unknown Verified 04/09/22 10:07 [From Elavil] atorvastatin calcium Allergy Unknown Unknown Verified 04/09/22 10:07 [From Lipitor] azithromycin [From Zithromax] Allergy Unknown Unknown Verified 04/09/22 10:07 cefaclor [Cefaclor] Allergy Unknown Unknown Verified 04/09/22 10:07 ciprofloxacin [From Cipro] Allergy Unknown Unknown Verified 04/09/22 10:07 ciprofloxacin HCl Allergy Unknown Unknown Verified 04/09/22 10:07 [From Cipro] hydroxyzine HCl [From Atarax] Allergy Unknown Unknown Verified 04/09/22 10:07 influenza virus vaccine, Allergy Unknown Unknown Verified 04/09/22 10:07 specific [Influenza Virus Vacc,Specific] iodine Allergy Unknown Unknown Verified 04/09/22 10:07 latex Allergy Unknown Unknown Verified 04/09/22 10:07 levofloxacin [From Levaquin] Allergy Unknown Unknown Verified 04/09/22 10:07 lidocaine Allergy Unknown Unknown Verified 04/09/22 10:07 lovastatin Allergy Unknown Unknown Verified 04/09/22 10:07 niacin Allergy Unknown Unknown Verified 04/09/22 10:07 Penicillins Allergy Unknown Unknown Verified 04/09/22 10:07 pneumococcal vaccine Allergy Unknown Unknown Verified 04/09/22 10:07 [Pneumococcal Vaccine] propoxyphene napsylate Allergy Unknown Unknown Verified 04/09/22 10:07 [From Darvocet-N] quinapril HCl [From Accupril] Allergy Unknown Unknown Verified 04/09/22 10:07 red dye Allergy Unknown Unknown Verified 04/09/22 10:07 rosuvastatin calcium Allergy Unknown Unknown Verified 04/09/22 10:07 [From Crestor] simvastatin Allergy Unknown Unknown Verified 04/09/22 10:07 Sulfa (Sulfonamide Allergy Unknown Unknown Verified 04/09/22 10:07 Antibiotics) Tetanus Vaccines and Toxoid Allergy Unknown Unknown Verified 04/09/22 10:07 [Tetanus Vaccines & Toxoid] tetracycline [Tetracycline] Allergy Unknown Unknown Verified 04/09/22 10:07 yellow dye Allergy Unknown Unknown Verified 04/09/22 10:07 fentanyl Allergy Unknown Verified 04/09/22 10:07 hydrochlorothiazide Allergy Unknown Verified 04/09/22 10:07 CREATINE MONOHYDRATE Allergy Unknown Unknown Uncoded 04/09/22 10:07 Family History Father CAD (coronary artery disease) Mother CAD (coronary artery disease) Cancer Brother CAD (coronary artery disease) Surgical History History of coronary artery stent placement (~01/05/03) History of right and left heart catheterization (~02/18/15) Social History household members: spouse Smoking Status: Former smoker quit date: 11/04/07 alcohol intake: never substance use type: does not use ROS Constitutional Constitutional: Reports anorexia, fatigue, malaise and weakness; Denies chills or fever(s) Eyes Eyes: Denies change in vision ENT HEENT: Denies dysphagia or sore throat Cardiovascular Cardiovascular: Denies chest pain, dyspnea on exertion, lightheadedness, orthopnea, palpitations, paroxysmal nocturnal dyspnea, rapid heart rate or syncope Respiratory/Chest Respiratory/Chest: Denies cough, dyspnea, shortness of breath at rest or shortness of breath with exertion Gastrointestinal Gastrointestinal: Reports constipation and diarrhea; Denies abdominal pain, dyspepsia, nausea or vomiting Genitourinary Genitourinary: Denies burning urination, difficulty urinating or dysuria Musculoskeletal Musculoskeletal: Denies arthralgias Neurologic Neurologic: Denies confusion, dizziness, focal weakness, headache(s), seizures or syncope Psychiatric Psychiatric: Denies anxiety or depression Hematologic/Lymphatic Hematologic/Lymphatic: Denies anemia Vital Signs Vital Signs Vital Signs: 04/09/22 10:11 04/09/22 11:01 04/09/22 11:48 Temperature 96.6 F L Temperature Source Temporal Pulse Rate 64 61 Respiratory Rate 18 12 Respiratory Effort Normal Non-Labored Blood Pressure 197/70 H 187/64 H Blood Pressure Mean 112 105 Pulse Ox 97 98 Oxygen Delivery Method Room Air Room Air 04/09/22 13:55 04/09/22 14:20 Temperature Temperature Source Pulse Rate 67 64 Respiratory Rate 20 H 20 H Respiratory Effort Blood Pressure 180/66 H 183/96 H Blood Pressure Mean 104 125 Pulse Ox 98 98 Oxygen Delivery Method Room Air Room Air Weight Weight: 212 lb 8.41 oz Body Mass Index (BMI) 28.8 Physical Exam Const alert and oriented x3 General Appearance: cooperative HEENT normocephalic, head/scalp atraumatic, hearing grossly normal bilaterally and moist oral mucous membranes Eyes PERRL, EOMs intact bilaterally and conjunctivae normal Neck no lymphadenopathy and supple Resp normal respiratory effort, no retractions, no use of accessory muscles and clear to auscultation bilaterally Cardio regular rate, regular rhythm, S1 normal heart sound, S2 normal heart sound and no murmurs GI normal to inspection, nondistended, normoactive bowel sounds, soft to palpation, non-tender and non-distended Extremity normal to inspection, full ROM and no clubbing, cyanosis or edema Peripheral Pulses: Yes pulses 2+ throughout Skin no rashes or lesions noted Neuro oriented x3, CN's II-XII intact bilaterally and moves all extremities Sensorium / Orientation: awake and alert Psych affect normal Results Lab / Micro Data Result Diagrams: 04/09/22 10:45 04/09/22 10:45 Labs: Laboratory Results - last 24 hr 04/09/22 10:45: WBC 8.8, RBC 3.90 L, Hgb 11.4 L, Hct 35.7 L, MCV 91.5, MCH 29.2, MCHC 31.9 L, RDW Std Deviation 45.4 H, RDW Coeff of Tracie 13.6, Plt Count 251, MPV 10.9, Immature Gran % (Auto) 1.200 H, Neut % (Auto) 66.3, Lymph % (Auto) 12.1 L, [place] % (Auto) 9.2, Eos % (Auto) 10.9 H, Baso % (Auto) 0.3, Absolute Neuts (auto) 5.9, Absolute Lymphs (auto) 1.07, Nucleated RBC % 0 04/09/22 10:45: Sodium 139, Potassium 4.8, Chloride 104, Carbon Dioxide 23.0, Anion Gap 12, BUN 16, Creatinine 0.97, Estim Creat Clear Calc 73.33, Est GFR (MDRD) Af Amer 97, Est GFR (MDRD) Non-Af 81, BUN/Creatinine Ratio 16.5, Glucose 74, Calcium 10.8 H, Total Bilirubin 0.50, AST 29, ALT 27, Alkaline Phosphatase 46, Troponin I High Sens 28, Total Protein 6.6, Albumin 3.3, Globulin 3.3, Albumin/Globulin Ratio 1.0 04/09/22 10:45: TSH 2.21 04/09/22 13:36: Urine Color Yellow, Urine Clarity Clear, Urine pH 6.0, Ur Specific [place] 1.020, Urine Protein Negative, Urine Glucose (UA) Normal, Urine Ketones 150 A*, Urine Occult Blood Negative, Urine Nitrite Negative, Urine Bilirubin Negative, Urine Urobilinogen Normal, Ur Leukocyte Esterase Negative, Urine RBC 0 SEEN, Urine WBC 0 SEEN, Ur Squamous Epith Cells 0 SEEN, Urine Bacteria 0 SEEN, Urine Mucus 0 SEEN Rhythm Strip Rhythm Strip: Sinus Rhythm Rate: 60 Ectopy: None Radiology Impression Chest X-Ray 04/09/22 11:30 IMPRESSION: Normal x-ray examination of the chest. Electronically Signed: Germán Rios MD at 11:46 EDT , Assessment & Plan Assessment/Plan (1) Generalized weakness: PLAN: #Debility and weakness * etiology is not very clear * no apparent infectious pathology evident * has not been eating or drinking much because he is concerned that will exacerbate his chronic diarrhea * admit to med surg * hydrate gently with IVF * consult director of automation for nutritional support * PT/OT consult * fall precautions * #Hypertension * poorly controlled * BP was elevated in the 180s systolic. * on lisinopril and metoprolol. Will resume * IV hydralazine prn for BP >160/100 * #Hyperlipidemia: on pravastatin CAD; on aspirin and plavix as well as statin, metoprolol and lisinopril #History of colon cancer with severe malnutrition * colonoscopy in September 2021 showed an infiltrative partially obtructing mass in falguni rectosigmoid colon, with bipsy showing tubular adenoma * say he saw Dr Valentino, who referred him to Dr Archer at [facility] for surgery. He has however not been able to follow up because of his weakness and debility, as well as difficulty * consul dietitian o/a of malnutrition * #Chronic diarrhea * says his diarrhea is chronic. * loperamide prn * #History of type 2 diabetes mellitus * diet controlled * chck A1Ce * insulin sliding scale * accuchecks ACHS * DVT prophylaxis: lovenox Code status: full code * I was informed by the ED physician that patient had signed a DNR CCA form in the ED. I clarified with patient about his CODE STATUS and he told me that after he signed the form, he had a chance to think about it and would not want to have CPR and intubation if needed. I again clarified with him if he really wanted CPR or intubation and patient stated in the affirmative in the presence of his and said he would want to have a chance of surviving if his heart stopped. Patient was counseled about difference between full code, DNR CCA and DNR CCA and discharge remains full code. * Total [id number] time 18 minutes. Charges/Coding Visit Charges OBSV E&M: 17515 Initial observation care L3 Procedures Hospitalists Procedures: 69552 Advncd Care Plan 30 Min
--- NOTE | 2022-04-09 14:57 | NURSING ---
DR HEADLEY FOR DR HERNANDEZ
[2022-04-09] MEDS: hydrALAZINE 20 MG/ML Vial 10 MG IV (15:01)
--- NOTE | 2022-04-09 15:18 | NURSING ---
MED SURG OBS KORAM GENERALIZED WEAKNESS, FUNCTIONAL DECLINE, ACCELERATED HTN
[2022-04-09 16:45] LABS: Bedside Glucose 78 mg/dL (74-106)
[2022-04-09] MEDS: Pravastatin 80 MG Tablet PO (21:38)
[2022-04-09] MEDS: Lisinopril 10 MG Tablet PO (21:38)
[2022-04-09] MEDS: Metoprolol Tartrate 25 MG Tablet 75 MG PO (21:38)
[2022-04-09 22:30] LABS: Bedside Glucose 95 mg/dL (74-106)
[2022-04-10] VITALS (11 sets, daily range): BP systolic 137–188; BP diastolic 62–76; PULSE 60–64; RESP 16–18; TEMP 36.4–37; O2SAT 96
[2022-04-10] MEDS: hydrALAZINE 20 MG/ML Vial 10 MG IV ×2 (02:32→21:12)
[2022-04-10] MEDS: 0.9% Saline Lock 10 ML Syringe IV ×3 (02:33→21:12)
[2022-04-10] MEDS: 0.9% Normal Saline 1,000 ML 75 ML IV (06:04)
[2022-04-10 06:30] LABS: Absolute Lymphocyte Count 1.07 X10^3/uL (0.83-4.51); Absolute Neutrophil Count 5.2 X10^3/uL (2.0-7.7); Basophil# 0.03 X10^3/uL; Basophil% 0.4 % (0-1); Eosinophil# 0.96 X10^3/uL; Eosinophils% 11.8 % (0-5); Hematocrit 32.5 % (40-54); Hemoglobin 10.4 g/dL (13.0-16.5); Lymphocyte # 1.07 X10^3/ul (0.83-4.51); Lymphocyte % 13.1 % (19-41); Mean Corpuscular Volume 93.7 fL (80-94); Mean Platelet Vol. 10.8 fl (6.2-12.0); Monocyte# 0.82 X10^3/uL; Monocyte% 10.1 % (0-10); NRBC Flagged by Analyzer 0 % (0-5); Neutrophil # 5.18 X10^3/uL (2.7-7.7); Neutrophil % 63.6 % (47-70); Platelet Count 224 K/mm3 (150-450); RBC Distribution Width CV 13.9 % (11.6-14.6); RBC Distribution Width SD 46.7 fl (35.1-43.9); Red Blood Count 3.47 M/mm3 (4.6-6.2); White Blood Count 8.1 K/mm3 (4.4-11.0)
[2022-04-10 06:56] LABS: Anion Gap 9 (5-15); BUN 19 mg/dL (7-18); BUN/Creat Ratio 17.8 RATIO (10-20); Chloride 110 mmol/L (98-107); Creatinine, Serum 1.07 mg/dL (0.70-1.30); EST Glomerular Filtration Rate 72 mL/min (>60); Est Glom Filt Rate - Afr Amer 87 mL/min (>60); Estimated Creatinine Clearance 66.48 ml/min; Glucose 93 mg/dL (74-106); Potassium 4.3 mmol/L (3.5-5.1); Sodium Level 139 mmol/L (136-145)
[2022-04-10 07:00] LABS: Bedside Glucose 96 mg/dL (74-106)
[2022-04-10] MEDS: Aspirin 81 MG TAB.CHEW PO (08:22)
[2022-04-10] MEDS: Metoprolol Tartrate 25 MG Tablet 75 MG PO ×2 (08:23→21:04)
[2022-04-10] MEDS: HYDROcodone Bitartrate/Apap 5/325 Tablet PO (08:30)
[2022-04-10] MEDS: Clopidogrel Bisulfate 75 MG Tablet PO (11:04)
[2022-04-10] MEDS: Enoxaparin 40 MG/0.4 ML Syringe SC (11:04)
[2022-04-10] MEDS: Lisinopril 20 MG Tablet PO ×2 (11:07→21:04)
[2022-04-10 12:31] LABS: Bedside Glucose 106 mg/dL (74-106)
--- NOTE | 2022-04-10 14:05 | PCM.PN.HOSP ---
Documented by User: Alize Davis NP, FLOODPLAIN MANAGER-C 04/10/22 14:42 Subjective Subjective Patient seen and examined. Reports feeling weak. Requesting SNF. States he laid on the floor at home for 9 days. Denies pain. Denies other specific symptoms or complaints. Objective Data Objective Data Vital Signs: Vital Signs Temp Pulse Resp BP Pulse Ox 98.6 F 63 18 169/66 H 96 04/10/22 08:19 04/10/22 08:23 04/10/22 08:19 04/10/22 08:23 04/10/22 08:19 Oxygen Delivery Method Room Air Weight: 207 lb 10.807 oz Body Mass Index (BMI) 28.1 Intake & Output: Intake and Output for Last 24 Hours 04/08/22 04/09/22 04/10/22 23:59 23:59 23:59 Intake Total 2360 / 2360 1250 / 1250 Output Total 0 / 0 Balance 2360 / 2360 1250 / 1250 Medical Nutrition Assessment Dietitian: Malnutrition Criteria Met Start: 04/10/22 13:48 Freq: Status: Active Protocol: Document 04/10/22 13:48 AG (Rec: 04/10/22 13:48 AG [id number]) Nutrition Malnutrition Evidence of Malnutrition Exists Yes Malnutrition (severe): Chronic Evidenced By Suboptimal Energy Intake ( Severe),Weight Loss (Severe) Clinical Problem Chronic Disease or Condition Related Malnutrition Etiology severe, chronic malnutrition related to inadequate energy intake w/ increased energy needs d/t colon cancer Signs/Symptoms as evidenced by estimated PO intake meeting <75% of estimated energy needs >3 months; unintentional wt loss of 28.3#/12% x 7 months Status Active Problem Recommendation Dietitian Recommendations/Changes will liberalize diet to CHO controlled given malnutrition; will continue to offer Glucerna 120mL 4x/day; will add magic cup BID w/ lunch and dinner Lab / Micro Data Result Diagrams: 04/10/22 06:01 04/10/22 06:01 Labs: Laboratory Results - last 24 hr 04/09/22 10:45: TSH 2.21 04/09/22 13:36: Urine Color Yellow, Urine Clarity Clear, Urine pH 6.0, Ur Specific [place] 1.020, Urine Protein Negative, Urine Glucose (UA) Normal, Urine Ketones 150 A*, Urine Occult Blood Negative, Urine Nitrite Negative, Urine Bilirubin Negative, Urine Urobilinogen Normal, Ur Leukocyte Esterase Negative, Urine RBC 0 SEEN, Urine WBC 0 SEEN, Ur Squamous Epith Cells 0 SEEN, Urine Bacteria 0 SEEN, Urine Mucus 0 SEEN 04/09/22 16:25: POC Glucose 78 04/09/22 21:37: POC Glucose 95 04/10/22 06:01: WBC 8.1, RBC 3.47 L, Hgb 10.4 L, Hct 32.5 L, MCV 93.7, MCH 30.0, MCHC 32.0, RDW Std Deviation 46.7 H, RDW Coeff of Tracie 13.9, Plt Count 224, MPV 10.8, Immature Gran % (Auto) 1.000 H, Neut % (Auto) 63.6, Lymph % (Auto) 13.1 L, [place] % (Auto) 10.1 H, Eos % (Auto) 11.8 H, Baso % (Auto) 0.4, Absolute Neuts (auto) 5.2, Absolute Lymphs (auto) 1.07, Nucleated RBC % 0 04/10/22 06:01: Sodium 139, Potassium 4.3, Chloride 110 H, Carbon Dioxide 20.0 L, Anion Gap 9, BUN 19 H, Creatinine 1.07, Estim Creat Clear Calc 66.48, Est GFR (MDRD) Af Amer 87, Est GFR (MDRD) Non-Af 72, BUN/Creatinine Ratio 17.8, Glucose 93, Calcium 10.0 04/10/22 06:12: POC Glucose 96 04/10/22 12:11: POC Glucose 106 Rhythm Strip Rhythm Strip: Sinus Rhythm Rate: 60 Ectopy: None Physical Exam Const alert and oriented x3 Orientation / Consciousness: awake, oriented to person, oriented to place and oriented to time HEENT normocephalic Mouth: dry mucous membranes Eyes PERRL, EOMs intact bilaterally and conjunctivae normal Neck no lymphadenopathy Resp clear to auscultation bilaterally Auscultation: diminished lung sounds Cardio regular rate, regular rhythm and no murmurs Peripheral Pulses: pulses 2+ throughout GI normal to inspection, nondistended, normoactive bowel sounds, non-tender and non-distended Extremity normal to inspection General Extremity: edema bilateral lower extremity Skin no rashes or lesions noted Lesions: no lesions Rashes: no rashes Trauma: no lacerations or abrasions Neuro CN's II-XII intact bilaterally, no focal motor deficits, no sensory deficits noted and deep tendon reflexes 2+ bilaterally Psych mental status grossly normal and affect normal Assessment & Plan Assessment/Plan (1) Declining functional status: PLAN: 1. Debility, functional decline- PT/OT. CM/SW consult for DC planning. Recently left AMA from TCU. 2. Chronic Diarrhea-Possibly related to partially obstructing mass? Recent stool studies pending. Needs outpatient follow up as previously recommended. Recent KUB showed a large amount of stool in the colon despite patient having ongoing chronic diarrhea. 3. Colon mass-found September 2021. Colonoscopy showed an infiltrative partially obstructing mass in the rectosigmoid colon. Biopsy showed tubular adenoma. Has failed to complete recommended follow up. Previously referred to Dr. Lamonte Hernandez, Surgery at [facility]. Will attempt to make patient appointment prior to DC that he can be transported to from [facility]. 4. Severe protein calorie malnutrition- recent 20 pound weight loss. Dietitian consulted. Continue dietary supplementation per dietitian recommendation. 5. History of polymyalgia rheumatica- diagnosed 09/2021. No longer on steroids due to noncompliance. 6. Paroxysmal atrial fibrillation- continue metoprolol. Not on anticoagulation due to history of GI bleed. 7. CAD with history of stent placement-on aspirin, Plavix, statin, metoprolol. 8. Type 2 diabetes mellitus-previously on metformin, no longer on med list. Accu-Cheks with sliding scale insulin. 9. Peripheral vascular disease-continue aspirin, statin. 10. Hypertension-poorly controlled, improving. Continue metoprolol, lisinopril. Lisinopril increased. DVT prophylaxis-Lovenox sc This patient was seen by Alize aDvis NP-C under the supervision of Dr. Uribe. Documented by User: Dr. Shanika Uribe DO 04/10/22 15:21 Subjective Subjective This patient was seen in conjunction with Alize Davis NP. The following represents my independent history and physical examination. Please see below for than the above. The patient reported to the emergency department physician that he was discharged too early from the TCU however it was noted per documentation that he left AGAINST MEDICAL ADVICE on 04/03/2022. APS referral was made at that time. Patient also indicated that he had not been eating or drinking well at all as it makes his diarrhea worse however he did not appear to be markedly dehydrated on admission. I did discuss with him his diagnosis of probable sigmoid colon cancer for which she was seen here in September 2021 and he told me he was never told he had cancer before and this had never been discussed with him and that I was the first doctor that ever had told him this. However, and subsequent conversation he stated he did follow-up with Dr. Valentino and she made a referral to another physician to have them surgically evaluated have this addressed. The patient then reported that he had not had a follow-up appointment with the subsequent physician and had had multiple appointments made with him however did not go to any. The patient was very inconsistent in his history. I did ask him whether he would be willing to be readmitted for rehab after this admission and he told me he was uncertain at this time. I told him it was unclear than why he was presenting to the hospital as that was his complaint on admission. Objective Data Lab / Micro Data Result Diagrams: 04/10/22 06:01 04/10/22 06:01 Physical Exam Const alert, oriented x3 and no apparent distress Constitutional Narrative: Overweight, older white male sitting up in bed watching television, appears comfortable nontoxic, somewhat evasive with questioning Exam Limitations: no limitations Nutritional Appearance: overweight HEENT head/scalp atraumatic HEENT Narrative: Mallampati 2, dentition is poor, no thrush Head and Scalp: normocephalic Resp normal respiratory effort, no retractions, no use of accessory muscles and clear to auscultation bilaterally Auscultation: Negative for crackles, rales, rhonchi or wheezes Cardio regular rate, regular rhythm, S1 normal heart sound, S2 normal heart sound, no murmurs, no rub, no gallops, no clicks and no JVD GI normal to inspection, nondistended, normoactive bowel sounds, soft to palpation, non-tender and non-distended Extremity no clubbing, cyanosis or edema Peripheral Pulses: Yes pulses 2+ throughout Neuro oriented x3, moves all extremities and no focal motor deficits Neuro Narrative: Significant generalized weakness Sensorium / Orientation: awake and alert Speech: speech normal Psych Psych Narrative: Affect is very flat mood seems depressed, eye contact is somewhat poor Assessment & Plan Assessment/Plan (1) Declining functional status: (2) Generalized weakness: (3) Severe malnutrition: (4) Cancer of sigmoid colon: (5) Debility: PLAN: Assessment: Debility Functional decline Reportedly chronic diarrhea Sigmoid colon mass Colonic polyps Severe malnutrition PAF CAD with history of PCI DM-2 PVD Hypertension Weight loss Plan: -Patient recently left AMA from the transitional care unit on 04/03/2021 -APS referral in place -Has 4 children but estranged from all of them -Very evasive with questioning -We will attempt to make appointment with colorectal surgeon so he has appointment when being transported to skilled facility if patient agreeable to SNF placement -He is still unclear whether that is acceptable for him at this time or not -There is a history of polymyalgia rheumatica versus dermatomyositis in his chart however does not appear that any of these have been assessed -We will obtain sed rate and CRP -Would consider muscle biopsy -Current symptoms do not seem consistent with polymyalgia rheumatica and dermatomyositis would be unlikely given sigmoid colon mass -Stop IV fluids -Stool diary -Patient reports diarrhea however did require a suppository for constipation while he was at the TCU and has had no stool since he has been hospitalized here -Biopsies from colonoscopy showed tubular adenoma however upon discussion with both general surgery and GI previously they feel strongly that he probably has malignancy -CEA was negative -I did discuss with the patient and his lack of follow-up after discharge here and leaving AMA from facilities after he been placed are not very helpful in his progression to improving his health Charges/Coding Visit Charges Inpatient E&M: 52067 Subs Hosp L2
--- NOTE | 2022-04-10 14:30 | CASEMGMT ---
Social Work Note SW placed a call to Georgina with TCU, no beds are available. SW in to speak with pt. SW introduced self and role at [facility]. Patient was provided a list of SNF providers including quality and resource use data and consistent with the patient?s preferred geographic region, medical needs, and insurance network. Pt states that he would like to stay in [place]. SW informed pt that the SNF in network with his insurance in [place] are [facility], [facility], and [facility]. Pt states to call his Samanta to discuss SNF options. SW placed a call to pt's Samanta. Samanta states she will be at [facility] around 2:30pm and will speak to this worker then. Viv Hensley [employer]LE[employer] DEPARTMENT HEAD, TELESALES TEAM LEADER
--- NOTE | 2022-04-10 15:00 | CASEMGMT ---
Social Work Note CHUCK updated that pt's Samanta and is at [facility] and requesting to speak to this worker. CHUCK in to speak with pt and Samanta. Samanta states she demands to know why pt cannot return to TCU. CHUCK informed Samanta that it could be a bed situation. Samanta states she thought pt's had right. CHUCK informed Samanta that pt's do have rights but SNF also have rights to decide who to accept or not. Samanta states well TCU is not like a assisted in the community, they are in the hospital. CHUCK informed Samanta that TCU still follows the same guidelines as a assisted and they still have a right to decide who to accept or not. Samanta states she demands to know the answer right now why pt cannot go back to TCU. CHUCK informed Samanta that this worker will call admissions and ask. CHUCK placed a call to Georgina with TCU who confirms currently there are no beds available. CHUCK back in to speak with pt and Samanta. SW informed pt and Samanta that TCU has no beds available. Samanta states so now what do we do? CHUCK informed Samanta that pt was provided list of SNF that accept his insurance and that pt could go to the SNF that are highlighted. Pt and Samanta agreeable to referrals being sent to both [facility] and [facility]. SW informed pt and Samanta that this worker will get referrals sent to both [facility] and [facility] and see which one is able to accept pt. CHUCK informed pt and Samanta that this worker is not sure if [facility] or [facility] will get back to this worker today but that SW will let them know when this worker gets an answer. Pt states that he was asleep earlier when the doctor came in and wants to speak to the doctor that was in the ED last night. SW informed pt that pt has a hospitalist assigned to him and it is different than the physician in the ED. SW informed pt that most of the time the physicians rely on the RN to provide updates so this worker can see if pt's RN can speak to him. Pt agreeable to this. CHUCK updated RN. CHUCK faxed referrals to both [facility] and [facility]. SW waiting for determination from SNF. Plan: SNF pending acceptance and pre-cert Viv Hensley SLUNK SKINNER, SPIRITUAL CARE COORDINATOR
--- NOTE | 2022-04-10 15:08 | CASEMGMT ---
ANISA MACIAS chart review: Patient was admitted 03/28-03/29/22 for weakness. See ANISA MACIAS assessment from 03/28/22. Patient was discharged to TCU on 03/29/22. Patient was sent to ED on 03/29 from TCU for fall and returned to TCU. Patient left TCU AMA on 04/03/22. Patient returned to [facility] ED on 04/09/22 for weakness stating he was too weak to leave his chair and has not been eating or drinking. ANISA MACIAS spoke to patient stating he has not followed up with PCP since leaving TCU as he has been too weak. Patient states he understands that he will need to go to SNF at discharge. SW updated regarding SNF placement.
--- NOTE | 2022-04-10 15:51 | CASEMGMT ---
ANISA MACIAS in to discuss GATICA form with patient and . RN COLLEEN explained GATICA form to patient, patient voiced understanding. Patient prefer to sign GATICA form. , Samanta, signed GATICA form and filed in chart. Patient provided copy of signed GATICA form. Patient and had no further questions or concerns at this time.
--- NOTE | 2022-04-10 16:00 | CASEMGMT ---
Social Work Note SW reviewed chart and noted that an APS report was made when pt left TCU AMA. SW placed a call to Kevin with APS and left message updating her on pt's admission to [facility]. Viv Hensley CLINICAL PHARMACY SPECIALIST, SAFE AND VAULT MECHANIC
[2022-04-10 16:08] LABS: CRP 9.27 mg/L (0.0-3.0)
[2022-04-10 16:30] LABS: Erythrocyte Sedimentation Rate 14 mm/hr (0-20)
[2022-04-10 16:41] LABS: Bedside Glucose 120 mg/dL (74-106)
[2022-04-10] MEDS: Pravastatin 80 MG Tablet PO (21:04)
[2022-04-10 22:00] LABS: Bedside Glucose 117 mg/dL (74-106)
[2022-04-11] VITALS (7 sets, daily range): BP systolic 131–152; BP diastolic 53–68; PULSE 55–63; RESP 16–18; TEMP 36.3–36.8; O2SAT 95–100
[2022-04-11] MEDS: cloNIDine HCl 0.1 MG Tablet PO (00:51)
[2022-04-11 06:40] LABS: Bedside Glucose 105 mg/dL (74-106)
[2022-04-11] MEDS: Clopidogrel Bisulfate 75 MG Tablet PO (09:35)
[2022-04-11] MEDS: Metoprolol Tartrate 25 MG Tablet 75 MG PO ×2 (09:35→22:33)
[2022-04-11] MEDS: Aspirin 81 MG TAB.CHEW PO (09:35)
[2022-04-11] MEDS: Enoxaparin 40 MG/0.4 ML Syringe SC (09:35)
[2022-04-11] MEDS: Lisinopril 20 MG Tablet PO ×2 (09:35→22:33)
--- NOTE | 2022-04-11 10:20 | PCM.PN.HOSP ---
Documented by User: Alize Davis NP, WATCHMAKER APPRENTICE-C 04/11/22 10:34 Subjective Subjective Patient seen and examined. Denies current symptoms or complaints. No acute events overnight. Awaiting acceptance to SNF. Objective Data Objective Data Vital Signs: Vital Signs Temp Pulse Resp BP Pulse Ox 97.3 F L 61 18 152/68 H 97 04/11/22 09:27 04/11/22 09:35 04/11/22 09:27 04/11/22 09:27 04/11/22 09:27 Oxygen Delivery Method Room Air Weight: 207 lb 10.807 oz Body Mass Index (BMI) 28.1 Intake & Output: Intake and Output for Last 24 Hours 04/09/22 04/10/22 04/11/22 23:59 23:59 23:59 Intake Total 2360 / 2360 2431.25 / 2431.25 Output Total 0 / 0 550 / 550 Balance 2360 / 2360 2431.25 / 2431.25 -550 / -550 Medical Nutrition Assessment Dietitian: Malnutrition Criteria Met Start: 04/10/22 13:48 Freq: Status: Active Protocol: Document 04/10/22 13:48 AG (Rec: 04/10/22 13:48 AG [id number]) Nutrition Malnutrition Evidence of Malnutrition Exists Yes Malnutrition (severe): Chronic Evidenced By Suboptimal Energy Intake ( Severe),Weight Loss (Severe) Clinical Problem Chronic Disease or Condition Related Malnutrition Etiology severe, chronic malnutrition related to inadequate energy intake w/ increased energy needs d/t colon cancer Signs/Symptoms as evidenced by estimated PO intake meeting <75% of estimated energy needs >3 months; unintentional wt loss of 28.3#/12% x 7 months Status Active Problem Recommendation Dietitian Recommendations/Changes will liberalize diet to CHO controlled given malnutrition; will continue to offer Glucerna 120mL 4x/day; will add magic cup BID w/ lunch and dinner Lab / Micro Data Result Diagrams: 04/10/22 06:01 04/10/22 06:01 Labs: Laboratory Results - last 24 hr 04/10/22 06:01: ESR 14 04/10/22 06:01: C-React Prot Ext Range 9.27 H 04/10/22 12:11: POC Glucose 106 04/10/22 16:34: POC Glucose 120 H 04/10/22 21:02: POC Glucose 117 H 04/11/22 06:22: POC Glucose 105 Rhythm Strip Rhythm Strip: Sinus Rhythm Rate: 60 Ectopy: None Physical Exam Const alert and oriented x3 Orientation / Consciousness: awake, oriented to person, oriented to place and oriented to time HEENT normocephalic Mouth: dry mucous membranes Eyes PERRL, EOMs intact bilaterally and conjunctivae normal Neck no lymphadenopathy Resp clear to auscultation bilaterally Auscultation: diminished lung sounds Cardio regular rate, regular rhythm and no murmurs Peripheral Pulses: pulses 2+ throughout GI normal to inspection, nondistended, normoactive bowel sounds, non-tender and non-distended Extremity normal to inspection General Extremity: edema bilateral lower extremity Skin no rashes or lesions noted Skin Narrative: Bilateral lower extremity abrasions Lesions: no lesions Rashes: no rashes Trauma: no lacerations or abrasions Neuro CN's II-XII intact bilaterally, no focal motor deficits, no sensory deficits noted and deep tendon reflexes 2+ bilaterally Psych mental status grossly normal Mood & Affect: flat affect Assessment & Plan Assessment/Plan (1) Generalized weakness: PLAN: 1. Debility, functional decline- PT/OT. CM/SW consult for DC planning. Recently left AMA from TCU. APS referral made. 2. Chronic Diarrhea-Possibly related to partially obstructing mass? Recent stool studies pending. Needs outpatient follow up as previously recommended. Recent KUB showed a large amount of stool in the colon despite patient having ongoing chronic diarrhea. 3. Colon mass-found September 2021. Colonoscopy showed an infiltrative partially obstructing mass in the rectosigmoid colon. Biopsy showed tubular adenoma. Has failed to complete recommended follow up. Previously referred to Dr. Lamonte Hernandez, Surgery at [facility]. Will attempt to make patient appointment prior to DC that he can be transported to from [facility]. 4. Severe protein calorie malnutrition- recent 20 pound weight loss. Dietitian consulted. Continue dietary supplementation per dietitian recommendation. 5. History of polymyalgia rheumatica- diagnosed 09/2021. No longer on steroids due to noncompliance. 6. Paroxysmal atrial fibrillation- continue metoprolol. Not on anticoagulation due to history of GI bleed. 7. CAD with history of stent placement-on aspirin, Plavix, statin, metoprolol. 8. Type 2 diabetes mellitus-previously on metformin, no longer on med list. Accu-Cheks with sliding scale insulin. 9. Peripheral vascular disease-continue aspirin, statin. 10. Hypertension-poorly controlled, improving. Continue metoprolol, lisinopril. Lisinopril increased. DVT prophylaxis-Lovenox sc Discharge planning: waiting approval to [facility]. This patient was seen by ANGEL MasseyC under the supervision of Dr. Uribe. Documented by User: Dr. Shanika Uribe DO 04/11/22 13:50 Subjective Subjective This patient was seen in conjunction with Alize Davis NP. The following represents my independent history and physical examination. Please see below for than the above. Patient was sleeping upon my arrival but awakens easily. He states he did not sleep well last night because he was cold and fell asleep more easily once as he and his room was turned up. He denies any current pain. No bowel movement since admission. Patient also states he has some incontinence with urine overnight. He was agreeable to placement and we are currently awaiting pre-CERT. I did advise him that we will try to make an appointment with the surgeon at [facility] in [place] prior to his discharge so he can be transported from whichever skilled facility he is discharged to to have a follow-up appointment. Objective Data Lab / Micro Data Result Diagrams: 04/10/22 06:01 04/10/22 06:01 Physical Exam Const alert, oriented x3 and no apparent distress Constitutional Narrative: Overweight, older white male lying in bed dozing off however awakens easily, appears comfortable nontoxic General Appearance: cooperative Orientation / Consciousness: awake, oriented to person, oriented to place and oriented to time Exam Limitations: no limitations Nutritional Appearance: overweight HEENT normocephalic, head/scalp atraumatic, hearing grossly normal bilaterally and moist oral mucous membranes HEENT Narrative: Edentulous, Mallampati 2, no thrush Head and Scalp: normocephalic Resp normal respiratory effort, no retractions, no use of accessory muscles and clear to auscultation bilaterally Auscultation: diminished lung sounds; Negative for crackles, rales, rhonchi or wheezes Cardio regular rate, regular rhythm, S1 normal heart sound, S2 normal heart sound, no murmurs, no rub, no gallops, no clicks and no JVD Peripheral Pulses: pulses 2+ throughout GI normal to inspection, nondistended, normoactive bowel sounds, soft to palpation, non-tender and non-distended Extremity normal to inspection, full ROM and no clubbing, cyanosis or edema General Extremity: edema bilateral lower extremity Peripheral Pulses: Yes pulses 2+ throughout Skin Lesions: no lesions Rashes: no rashes Trauma: no lacerations or abrasions Neuro oriented x3, moves all extremities, no focal motor deficits and deep tendon reflexes 2+ bilaterally Neuro Narrative: Significant generalized weakness Sensorium / Orientation: awake and alert Speech: speech normal Psych mental status grossly normal Psych Narrative: Affect is very flat mood seems depressed, eye contact is somewhat poor Mood & Affect: depressed and flat affect Assessment & Plan Assessment/Plan (1) Generalized weakness: (2) Declining functional status: (3) Cancer of sigmoid colon: PLAN: Assessment: Debility Functional decline Reportedly chronic diarrhea Sigmoid colon mass Colonic polyps Severe malnutrition PAF CAD with history of PCI DM-2 PVD Hypertension Weight loss Plan: -Patient recently left AMA from the transitional care unit on 04/03/2021 -APS referral in place -Has 4 children but estranged from all of them -There is a history of polymyalgia rheumatica versus dermatomyositis in his chart however does not appear that any of these have been assessed -CRP was only mildly elevated and ESR was normal--> Delia doubt PMR -Would consider muscle biopsy in the future if he continues to be weak but really needs to follow-up with general surgery -Stool diary -Patient reports diarrhea however did require a suppository for constipation while he was at the TCU and has had no stool since he has been hospitalized here -No documented stools since admission -Biopsies from colonoscopy showed tubular adenoma however upon discussion with both general surgery and GI previously they feel strongly that he probably has malignancy -CEA was negative -I did discuss with the patient and his lack of follow-up after discharge here and leaving AMA from facilities after he been placed are not very helpful in his progression to improving his health -Patient is agreeable to skilled facility and pre-CERT has been initiated--> patient was excepted at [facility] -I did advise the patient that we would get an appointment for him prior to discharge at [facility] with the general surgeon/colorectal surgeon to be evaluated for his colon malignancy and that he could be transported from [facility] to the hospital Charges/Coding Visit Charges Inpatient E&M: 60074 Subs Hosp L2
[2022-04-11 11:45] LABS: Bedside Glucose 101 mg/dL (74-106)
--- NOTE | 2022-04-11 11:55 | CASEMGMT ---
[facility] Voicemail left inquiring about status of referral. Telephone call to Katherine Samuel. Katherine request for clinicals to be faxed again as clinicals where not obtained the first time. Clinical information faxed. Will continue to follow. Ailin Sanchez MSW, SEBASTI[place]NS
--- NOTE | 2022-04-11 12:26 | CASEMGMT ---
Social Work Telephone call received from [facility], Karyn. Karyn reports that patient is accepted and pre-cert will be started. Telephone call to Katherine Samuel. This web content & social media manager canceled referral. This web content & social media manager to patient room. This web content & social media manager updated patient on above information. Patient reports to have thought that patient was transitioning to [facility] in [place]. This web content & social media manager clarified that per Dr. Uribe, hospitalist plan is for patient to follow up outpatient with [facility] and that patient is to discharge to a senior living home for strengthening. Patient voiced understanding and is agreeable to this web content & social media manager continuing to set up discharge for [facility]. Patient is agreeable to this web content & social media manager calling patient spouse, Samanta to updated on discharge information. Telephone call to Samanta. No answer. Voicemail left. PLAN: [facility], pending pre-cert. Patient to discharge skilled. Social Work to continue to follow. Ailin SANTIAGO, HATTIE-S
--- NOTE | 2022-04-11 13:49 | CASEMGMT ---
Social Work Patient spouse to acute care unit and request to speak with this group social worker. This group social worker met with patient and patient spouse, Samanta in room. This group social worker going over plan for patient to transition to [facility] ([facility]) pending pre-cert. Samanta and patient voiced understanding to this. PLAN: [facility], pending pre-cert. Will continue to follow. Ailin SANTIAGO, SEBASTIÁNS
[2022-04-11] MEDS: HYDROcodone Bitartrate/Apap 5/325 Tablet PO (14:45)
[2022-04-11 17:26] LABS: Bedside Glucose 175 mg/dL (74-106)
[2022-04-11] MEDS: Insulin Lispro 100 UNIT/ML INSULN.PEN SC (17:27)
[2022-04-11 21:35] LABS: Bedside Glucose 85 mg/dL (74-106)
[2022-04-11] MEDS: Pravastatin 80 MG Tablet PO (22:33)
--- NOTE | 2022-04-12 | NURSING ---
This nurse asked patient if she could bladder scan patient since he has not yet voided on this shift. patient refused. Will try again later.
[2022-04-12 03:45] VITALS: BP 157/65; PULSE 55; RESP 16; TEMP 36.7; O2SAT 96
[2022-04-12] MEDS: HYDROcodone Bitartrate/Apap 5/325 Tablet PO (05:42)
[2022-04-12 05:43] LABS: Absolute Lymphocyte Count 1.21 X10^3/uL (0.83-4.51); Absolute Neutrophil Count 3.3 X10^3/uL (2.0-7.7); Basophil# 0.02 X10^3/uL; Basophil% 0.3 % (0-1); Eosinophil# 0.83 X10^3/uL; Eosinophils% 13.3 % (0-5); Hematocrit 30.9 % (40-54); Hemoglobin 10.2 g/dL (13.0-16.5); Lymphocyte # 1.21 X10^3/ul (0.83-4.51); Lymphocyte % 19.5 % (19-41); Mean Corpuscular Hgb 29.6 pg (27.0-32.0); Mean Corpuscular Volume 89.6 fL (80-94); Mean Platelet Vol. 10.9 fl (6.2-12.0); Monocyte# 0.86 X10^3/uL; Monocyte% 13.8 % (0-10); NRBC Flagged by Analyzer 0 % (0-5); Neutrophil # 3.25 X10^3/uL (2.7-7.7); Neutrophil % 52.3 % (47-70); Platelet Count 207 K/mm3 (150-450); RBC Distribution Width CV 14.5 % (11.6-14.6); RBC Distribution Width SD 46.5 fl (35.1-43.9); Red Blood Count 3.45 M/mm3 (4.6-6.2); White Blood Count 6.2 K/mm3 (4.4-11.0)
[2022-04-12 06:05] LABS: Bedside Glucose 106 mg/dL (74-106)
[2022-04-12 06:24] LABS: BUN 23 mg/dL (7-18); Creatinine, Serum 0.91 mg/dL (0.70-1.30); Estimated Creatinine Clearance 78.17 ml/min; Glucose 101 mg/dL (74-106)
[2022-04-12 06:25] LABS: Anion Gap 8 (5-15); BUN/Creat Ratio 25.2 RATIO (10-20); Calcium,Total 10.6 mg/dL (8.5-10.1); Chloride 111 mmol/L (98-107); EST Glomerular Filtration Rate 86 mL/min (>60); Est Glom Filt Rate - Afr Amer 104 mL/min (>60); Potassium 3.8 mmol/L (3.5-5.1); Sodium Level 140 mmol/L (136-145)
[2022-04-12 08:26] VITALS: BP 126/52; PULSE 60; RESP 18; TEMP 36.4; O2SAT 95
[2022-04-12 08:40] VITALS: PULSE 60
[2022-04-12] MEDS: Lisinopril 20 MG Tablet PO (08:40)
[2022-04-12] MEDS: Aspirin 81 MG TAB.CHEW PO (08:40)
[2022-04-12] MEDS: Clopidogrel Bisulfate 75 MG Tablet PO (08:40)
[2022-04-12] MEDS: Enoxaparin 40 MG/0.4 ML Syringe SC (08:40)
[2022-04-12] MEDS: Metoprolol Tartrate 25 MG Tablet 75 MG PO (08:40)
--- NOTE | 2022-04-12 08:48 | CASEMGMT ---
[facility]. This social insurance specialist updated medical team, patient and patient spouse. PLAN: skilled. Ailin JOHNSON, LIZ
--- NOTE | 2022-04-12 12:00 | TREXTCAR_ITS ---
Diet 04/10/22 13:48 Diet: Carbohydrate Controlled Type of Dietary Supplement:: Magic Cup Dessert Is pt able to select menu?: Yes Diet Comments: w/lunch and dinner Routine Orders/Code Status O2 Frequency: PRN Keep PO Greater than or Equal to (%): 92 Routine Lab Work: CBC (In 1 week) and BMP (In 1 week) Code Status: Full Code Wound(s) Rt forde: Wound Type: Abrasion Lt forde: Wound Type: Abrasion LT great toe: Wound Type: Abrasion Suggestions for Active Care Change Position every (hours): 2 Therapies Weight Bearing: Full weight bearing Physical Therapy: Eval and Treat Occupational Therapy: Eval and Treat Problem/Diagnosis (1) Generalized weakness: Status: Acute (2) Declining functional status: Status: Acute (3) Cancer of sigmoid colon: Status: Acute Allergies/Procedures Done in Hospital Allergies acetaminophen [From Darvocet-N] Allergy (Unknown, Verified 04/09/22 10:07) Unknown amitriptyline HCl [From Elavil] Allergy (Unknown, Verified 04/09/22 10:07) Unknown atorvastatin calcium [From Lipitor] Allergy (Unknown, Verified 04/09/22 10:07) Unknown azithromycin [From Zithromax] Allergy (Unknown, Verified 04/09/22 10:07) Unknown cefaclor [Cefaclor] Allergy (Unknown, Verified 04/09/22 10:07) Unknown ciprofloxacin [From Cipro] Allergy (Unknown, Verified 04/09/22 10:07) Unknown ciprofloxacin HCl [From Cipro] Allergy (Unknown, Verified 04/09/22 10:07) Unknown hydroxyzine HCl [From Atarax] Allergy (Unknown, Verified 04/09/22 10:07) Unknown influenza virus vaccine, specific [Influenza Virus Vacc,Specific] Allergy (Unknown, Verified 04/09/22 10:07) Unknown iodine Allergy (Unknown, Verified 04/09/22 10:07) Unknown latex Allergy (Unknown, Verified 04/09/22 10:07) Unknown levofloxacin [From Levaquin] Allergy (Unknown, Verified 04/09/22 10:07) Unknown lidocaine Allergy (Unknown, Verified 04/09/22 10:07) Unknown lovastatin Allergy (Unknown, Verified 04/09/22 10:07) Unknown niacin Allergy (Unknown, Verified 04/09/22 10:07) Unknown Penicillins Allergy (Unknown, Verified 04/09/22 10:07) Unknown pneumococcal vaccine [Pneumococcal Vaccine] Allergy (Unknown, Verified 04/09/22 10:07) Unknown propoxyphene napsylate [From Darvocet-N] Allergy (Unknown, Verified 04/09/22 10:07) Unknown quinapril HCl [From Accupril] Allergy (Unknown, Verified 04/09/22 10:07) Unknown red dye Allergy (Unknown, Verified 04/09/22 10:07) Unknown rosuvastatin calcium [From Crestor] Allergy (Unknown, Verified 04/09/22 10:07) Unknown simvastatin Allergy (Unknown, Verified 04/09/22 10:07) Unknown Sulfa (Sulfonamide Antibiotics) Allergy (Unknown, Verified 04/09/22 10:07) Unknown Tetanus Vaccines and Toxoid [Tetanus Vaccines & Toxoid] Allergy (Unknown, Verified 04/09/22 10:07) Unknown tetracycline [Tetracycline] Allergy (Unknown, Verified 04/09/22 10:07) Unknown yellow dye Allergy (Unknown, Verified 04/09/22 10:07) Unknown fentanyl Allergy (Verified 04/09/22 10:07) Unknown hydrochlorothiazide Allergy (Verified 04/09/22 10:07) Unknown CREATINE MONOHYDRATE Allergy (Unknown, Uncoded 04/09/22 10:07) Unknown Procedures: None Type of Care/Length of Stay Estimated LOS: Convalescent Care Less Than 30 days Type of Care Needed: Skilled Rehab Potential: Fair Prognosis: Fair Additional Orders/Day of Discharge Day of Discharge: 04/12/22 Dietary and Speech Recommendations Dietitian Recommendations/Changes: Will continue carbohydrate-controlled diet and magic cup BID w/ lunch and dinner as ordered. Will d/c Glucerna Shake 120mL 4x/day with medpass---pt is refusing. Additional ONS as pt willing if PO/wt decline. Discharge Plan Admission Admit Date/Time: 04/09/22 15:06 Attending Provider: Shanika Uribe Primary Care Provider: Ziyad Ruvalcaba Consulting Providers: Carol Rand Discharge Orders/Prescriptions Prescriptions: No Action clopidogrel 75 MG tablet 75 mg PO DAILY RF: 0 hydrocodone-acetaminophen 1 EACH tablet 1 tab PO DAILY PRN (Reason: Back Pain) RF: 0 pravastatin 20 MG tablet 80 mg PO QHS RF: 0 albuterol sulfate [Ventolin HFA] 1 INHALER inhaler 2 puff inhalation PRN PRN (Reason: Shortness Of Breath) RF: 0 lisinopril 10 mg tablet 10 mg PO BID RF: 0 aspirin 81 mg Tablet 81 mg PO DAILY RF: 0 metoprolol tartrate 50 mg tablet 75 mg PO BID RF: 0 Referrals / Follow Up: Ziyad Ruvalcaba MD [Primary Care Provider] - NOT,DEFINED [NON-STAFF] - 04/18/22 2:30 pm ([facility] medical outpatient Appointment with Doctor Lamonte Hernandez take filled out paperwork to apt recommends to also attend Please dont cancel important appointment!! )
[2022-04-12 12:01] LABS: Bedside Glucose 127 mg/dL (74-106)
--- NOTE | 2022-04-12 12:02 | DS.PCM_ITS ---
Providers Date of Admission: 04/09/22 Date of Discharge: 04/12/22 Primary Care Physician: Dr. Ziyad Ruvalcaba MD Reason For Visit: DEBILITY AND WEAKNESS Diagnosis Discharge Diagnosis (1) Generalized weakness: Status: Acute Code(s): R53.1 - Weakness (2) Declining functional status: Status: Acute Code(s): R53.81 - Other malaise (3) Cancer of sigmoid colon: Status: Acute Code(s): C18.7 - Malignant neoplasm of sigmoid colon Medications at Discharge Home Medications albuterol sulfate [Ventolin HFA] 2 puff INHALATION PRN PRN 08/23/14 clopidogrel 75 mg PO DAILY 08/23/14 hydrocodone-acetaminophen 1 tab PO DAILY PRN 08/23/14 pravastatin 80 mg PO QHS 08/23/14 aspirin 81 mg PO DAILY 09/08/21 lisinopril 10 mg PO BID 09/08/21 metoprolol tartrate 75 mg PO BID 03/29/22 enoxaparin 40 mg SUBCUT DAILY #0 ml 04/12/22 Hospital Course Operations None Procedures None Summary of Care Provided Minutes Spent on Discharge: 39 Hospital Course: Mr. Whitlock is a 72-year-old white male who presented to the emergency department [facility] on 04/09/2022 with complaints of weakness. He was recently admitted here and discharged on 03/29/2022 for dehydration and debility. During that hospitalization he had a CT of his abdomen pelvis which showed sig moid wall thickening. The patient had had previous colonoscopy and biopsies at this area in September 2021 at which time it was thought he had a neoplasm and he was referred to colorectal surgery. The patient had not been followed up with since that time with regards to this neoplasm and suspected malignancy as the patient had canceled several appointments for various reasons. He was discharged to the TCU on 03/29/2022 but unfortunately signed out AGAINST MEDICAL ADVICE on 04/03/2022. It sounds like the patient basically eloped from the transitional care unit. There were concerns and APS was referred at that time. He reported decreased p.o. intake with diarrhea at home and indicated he was not eating and drinking well secondary to the fact that it makes his diarrhea worse. He had no bouts of diarrhea here and had only 1 bowel movement during the hospitalization. There is documentation of constipation at the TCU for which she was given Colace. Upon my initial conversation with the patient I addressed the concerns of possible sigmoid colon cancer and his lack of follow-upnd he to ld me he was never told he had cancer before and this had never been discussed with him and that I was the first doctor that ever had told him this. However, and subsequent conversation he stated he did follow-up with Dr. Valentino and she made a referral to another physician to have them surgically evaluated have this addressed. The patient then reported that he had not had a follow-up appointment with the subsequent physician and had had multiple appointments made with him however did not go to any. The patient was very inconsistent in his history and the information he would give us. He was seen by physical and Occupational Therapy and deemed appropriate for continued therapy. There was some question whether or not he had polymyalgia rheumatica and we therefore got inflammatory markers. His ESR was completely normal and I therefore doubt he has PMR as a diagnosis. He was agreeable to discharge to skilled facility and we were able to make a follow-up appointment with the colorectal surgeon for 04/18/2022 at 2:30 PM. He should still be at [facility] at that time and will be transported. We strongly recommend that his attend and I impressed upon him the importance of him following up and we asked him please not to cancel this appointment as it was extremely important. He was discharged in stable condition on 04/12/2022. He should follow-up with his primary care physician within the next month. Discharge diagnoses: Debility Functional decline Sigmoid colon mass Colonic polyps Severe malnutrition Subjectively reported chronic diarrhea PAF CAD with history of PCI DM-2 PVD Hypertension Weight loss Physical Exam Const alert, oriented x3 and no apparent distress Constitutional Narrative: Overweight, older white male sitting up in bed watching television and eating breakfast, appears comfortable and nontoxic General Appearance: cooperative, comfortable and well developed Orientation / Consciousness: awake, oriented to person, oriented to place and oriented to time Exam Limitations: no limitations Nutritional Appearance: overweight HEENT normocephalic, head/scalp atraumatic, hearing grossly normal bilaterally and moist oral mucous membranes Eyes PERRL, EOMs intact bilaterally and conjunctivae normal Neck no lymphadenopathy and supple Resp normal respiratory effort, no retractions, no use of accessory muscles and clear to auscultation bilaterally Auscultation: diminished lung sounds; Negative for crackles, rales, rhonchi or wheezes Cardio regular rate, regular rhythm, S1 normal heart sound, S2 normal heart sound, no murmurs, no rub, no gallops, no clicks and no JVD Peripheral Pulses: pulses 2+ throughout GI normal to inspection, nondistended, normoactive bowel sounds, soft to palpation, non-tender and non-distended Extremity normal to inspection and full ROM Extremity Narrative: Trace bilateral upper extremity edema/trace bilateral lower extremity edema, no cyanosis or clubbing Skin no wounds, skin turgor normal and no jaundice Skin Narrative: Bilateral lower extremity abrasions Lesions: no lesions Rashes: no rashes Trauma: no lacerations or abrasions Neuro oriented x3, moves all extremities, no focal motor deficits and deep tendon reflexes 2+ bilaterally Neuro Narrative: Significant generalized weakness Sensorium / Orientation: awake and alert Speech: speech normal Psych mental status grossly normal Psych Narrative: Affect is very flat mood seems depressed, eye contact is somewhat poor Mood & Affect: depressed and flat affect Medical Records Data Medical Nutrition Assessment Dietitian: Malnutrition Criteria Met Start: 04/10/22 13:48 Freq: Status: Active Protocol: Document 04/12/22 10:25 RMA (Rec: 04/12/22 10:25 RMA [id number]) Nutrition Malnutrition Evidence of Malnutrition Exists Yes Malnutrition (severe): Chronic Evidenced By Suboptimal Energy Intake ( Severe),Weight Loss (Severe) Clinical Problem Chronic Disease or Condition Related Malnutrition Etiology severe, chronic malnutrition related to inadequate energy intake w/ increased energy needs d/t colon cancer Signs/Symptoms as evidenced by estimated PO intake meeting <75% of estimated energy needs >3 months; unintentional wt loss of 28.3#/12% x 7 months Status Active Problem Recommendation Dietitian Recommendations/Changes Will continue carbohydrate- controlled diet and magic cup BID w/ lunch and dinner as ordered. Will d/c Glucerna Shake 120mL 4x/day with medpass---pt is refusing. Additional ONS as pt willing if PO/wt decline. Weight / BMI Weight Weight: 94.2 kg Body Mass Index (BMI) 28.1 ABG / Lab / Microbiology Data Result Diagrams: 04/12/22 04:58 04/12/22 04:58 Laboratory: Laboratory Results - last 24 hr 04/11/22 17:11: POC Glucose 175 H 04/11/22 21:20: POC Glucose 85 04/12/22 04:58: WBC 6.2, RBC 3.45 L, Hgb 10.2 L, Hct 30.9 L, MCV 89.6, MCH 29.6, MCHC 33.0, RDW Std Deviation 46.5 H, RDW Coeff of Tracie 14.5, Plt Count 207, MPV 10.9, Immature Gran % (Auto) 0.800, Neut % (Auto) 52.3, Lymph % (Auto) 19.5, Calloway % (Auto) 13.8 H, Eos % (Auto) 13.3 H, Baso % (Auto) 0.3, Absolute Neuts (auto) 3.3, Absolute Lymphs (auto) 1.21, Nucleated RBC % 0 04/12/22 04:58: Sodium 140, Potassium 3.8, Chloride 111 H, Carbon Dioxide 21.0, Anion Gap 8, BUN 23 H, Creatinine 0.91, Estim Creat Clear Calc 78.17, Est GFR (MDRD) Af Amer 104, Est GFR (MDRD) Non-Af 86, BUN/Creatinine Ratio 25.2 H, Glucose 101, Calcium 10.6 H 04/12/22 06:00: POC Glucose 106 04/12/22 11:54: POC Glucose 127 H Microbiology: Microbiology 04/12/22 10:03 Nasal Secretion SARS-CoV-2 Antigen (Rapid) - Final Meaningful Use Info Meaningful Use Diagnoses (Choose all that apply): None applicable Discharge Plan Admission Admit Date/Time: 04/09/22 15:06 Primary Reason for Your Visit: Generalized weakness stability Attending Provider: Shanika Uribe Primary Care Provider: Ziyad Ruvalcaba Consulting Providers: Carol Rand Discharge Orders/Prescriptions Prescriptions: New enoxaparin 40 mg/0.4 mL Syringe 40 mg subcut DAILY Qty: 0 RF: 0 Continued clopidogrel 75 MG tablet 75 mg PO DAILY RF: 0 hydrocodone-acetaminophen 1 EACH tablet 1 tab PO DAILY PRN (Reason: Back Pain) RF: 0 pravastatin 20 MG tablet 80 mg PO QHS RF: 0 albuterol sulfate [Ventolin HFA] 1 INHALER inhaler 2 puff inhalation PRN PRN (Reason: Shortness Of Breath) RF: 0 lisinopril 10 mg tablet 10 mg PO BID RF: 0 aspirin 81 mg Tablet 81 mg PO DAILY RF: 0 metoprolol tartrate 50 mg tablet 75 mg PO BID RF: 0 Referrals / Follow Up: Dr. Lamonte Hernandez [Other] - 04/18/22 2:30 pm ([facility] Economics Lecturer) Ziyad Ruvalcaba MD [Primary Care Provider] - Within 1 Month NOT,DEFINED [NON-STAFF] - 04/18/22 2:30 pm ([facility] medical outpatient Appointment with Doctor Lamonte Hernandez take filled out paperwork to apt recommends to also attend Please dont cancel important appointment!! ) Disposition Disposition (needs filled in before D/C Order can be placed): Home, Self Care Charges/Coding Visit Charges Inpatient E&M: 56834 SNF Disch >30 Min
--- NOTE | 2022-04-12 12:21 | CASEMGMT ---
Social Work Dr. Uribe (hospitalist) request for this aids social worker to set up appointment for patient with Dr. Lamonte Hernandez at [facility] in [place], [place]. Telephone call to Dr. Hernandez's office ([phone]). Per scheduling, Yenni, patient has appointment set up already for April 18 @ 2:30pm. This aids social worker added appointment to patient discharge information and updated Dr. Uribe. Telephone call to patient spouse, Samanta. Samanta updated on appointment time and date. PLAN: skilled. Ailin JOHNSON, HATTIE-S
--- NOTE | 2022-04-12 13:20 | NURSING ---
Report called to Shaista at [facility]
[2022-04-12 13:26] VITALS: BP 131/83; PULSE 55; RESP 18; TEMP 36.7; O2SAT 94
--- NOTE | 2022-04-12 13:27 | CASEMGMT ---
Social Work Dr. Uribe (hospitalist) completed discharge paperwork. 7000 completed in [facility]. Discharge information faxed to [facility]: Discharge summary, transfer to extended care form, signed medication list, 7000 results, COVID test results, and COVID screening tool. [facility] for 14:00. Transportation sheet completed and placed with patient discharge packet. Medical team, patient, and patient spouse updated on transportation time. PLAN: [facility], skilled. Ailin SANTIAGO, LIZ
== END 2022-04-12 18:00 ==
LOC: ED 15:03 → MS3 15:29
PROVIDERS: Nurse Practitioner Family; Admitting Provider Student in an Organized Health Care Education/Training Program; Emergency Provider Emergency Medicine; PCP Family Medicine; Visit Provider Internal Medicine
DX: K52.9 Noninfective gastroenteritis and colitis, unspecified (principal); E11.51 Type 2 diabetes mellitus with diabetic peripheral angiopathy without gangrene; E43 Unspecified severe protein-calorie malnutrition; M35.3 Polymyalgia rheumatica; J44.9 Chronic obstructive pulmonary disease, unspecified; C18.7 Malignant neoplasm of sigmoid colon; E11.40 Type 2 diabetes mellitus with diabetic neuropathy, unspecified; I48.0 Paroxysmal atrial fibrillation; Z79.82 Long term (current) use of aspirin; Z87.891 Personal history of nicotine dependence; E78.5 Hyperlipidemia, unspecified; E86.0 Dehydration; I10 Essential (primary) hypertension; I25.10 Atherosclerotic heart disease of native coronary artery without angina pectoris; R53.81 Other malaise; R00.1 Bradycardia, unspecified; Z79.02 Long term (current) use of antithrombotics/antiplatelets; Z68.28 Body mass index [BMI] 28.0-28.9, adult; Z79.899 Other long term (current) drug therapy; Z77.29 Contact with and (suspected) exposure to other hazardous substances
CPT/HCPCS: 36415; 71045; 80048; 80053; 81001; 82962; 84443; 84484; 85025; 85652; 86140; 87426; 93005; 96361; 96372; 96374; 96376; 97110; 97162; 97166; 97530; 97802; 99218; 99285; J7030; A4216; G0378

== ENCOUNTER 2022-04-16 04:00 | Outpatient (REF) | payer SELFPAY ==
[2022-04-16 08:46] LABS: Absolute Lymphocyte Count 1.28 X10^3/uL (0.83-4.51); Absolute Neutrophil Count 2.4 X10^3/uL (2.0-7.7); Basophil# 0.02 X10^3/uL; Basophil% 0.4 % (0-1); Eosinophil# 0.47 X10^3/uL; Eosinophils% 9.2 % (0-5); Hematocrit 35.8 % (40-54); Hemoglobin 11.2 g/dL (13.0-16.5); Lymphocyte # 1.28 X10^3/ul (0.83-4.51); Mean Corp Hgb Conc 31.3 g/dL (32-36); Mean Corpuscular Hgb 29.2 pg (27.0-32.0); Mean Corpuscular Volume 93.2 fL (80-94); Mean Platelet Vol. 11.6 fl (6.2-12.0); Monocyte# 0.94 X10^3/uL; Monocyte% 18.4 % (0-10); NRBC Flagged by Analyzer 0 % (0-5); Neutrophil # 2.37 X10^3/uL (2.7-7.7); Neutrophil % 46.2 % (47-70); Platelet Count 197 K/mm3 (150-450); RBC Distribution Width CV 14.6 % (11.6-14.6); RBC Distribution Width SD 49.8 fl (35.1-43.9); Red Blood Count 3.84 M/mm3 (4.6-6.2); White Blood Count 5.1 K/mm3 (4.4-11.0)
[2022-04-16 09:03] LABS: Anion Gap 7 (5-15); BUN 22 mg/dL (7-18); BUN/Creat Ratio 21.4 RATIO (10-20); Calcium,Total 11.5 mg/dL (8.5-10.1); Chloride 109 mmol/L (98-107); Creatinine, Serum 1.03 mg/dL (0.70-1.30); EST Glomerular Filtration Rate 75 mL/min (>60); Est Glom Filt Rate - Afr Amer 91 mL/min (>60); Glucose 86 mg/dL (74-106); Potassium 3.9 mmol/L (3.5-5.1); Sodium Level 142 mmol/L (136-145)
== END 2022-04-16 23:59 | disposition home or self-care (01) ==
LOC: OLS.SW1020 04:00
PROVIDERS: PCP Family Medicine; Referring Provider Family Medicine; Visit Provider Family Medicine
DX: E11.9 Type 2 diabetes mellitus without complications (principal); R68.89 Other general symptoms and signs; Z13.228 Encounter for screening for other metabolic disorders
CPT/HCPCS: 36415; 80048; 85025

== ENCOUNTER 2022-04-19 11:50 | Outpatient (REF) | payer SELFPAY ==
[2022-04-19 12:26] LABS: Hematocrit 43.9 % (40-54); Hemoglobin 12.6 g/dL (13.0-16.5); Mean Corp Hgb Conc 28.7 g/dL (32-36); Mean Corpuscular Hgb 29.6 pg (27.0-32.0); Mean Corpuscular Volume 103.1 fL (80-94); Mean Platelet Vol. 11.3 fl (6.2-12.0); Platelet Count 201 K/mm3 (150-450); RBC Distribution Width CV 14.6 % (11.6-14.6); RBC Distribution Width SD 55.7 fl (35.1-43.9); Red Blood Count 4.26 M/mm3 (4.6-6.2); White Blood Count 6.3 K/mm3 (4.4-11.0)
[2022-04-19 12:32] LABS: Scan Indicated on CBC? Y/N NO
== END 2022-04-19 23:59 | disposition home or self-care (01) ==
LOC: OLS.SW1020 11:50
PROVIDERS: PCP Family Medicine; Referring Provider Family Medicine; Visit Provider Family Medicine
DX: C18.7 Malignant neoplasm of sigmoid colon (principal)
CPT/HCPCS: 36415; 85027